=== PATIENT | female | born 1950 | race Caucasian/White ===

== ENCOUNTER 2016-09-11 09:30 | Inpatient (IN) | payer MEDICARE ==
[~2016-09-11] VITALS: Ht 175.3 cm; Wt 100.2 kg
[~2016-09-11 09:30] MED LIST: AC325T PO; ALBU0.8322 IH; ALBU8.5H2 IH; ALPR.25T PO; AMLO10TA2 PO; AMLO10TA82 PO; AMLO5TAB2 PO; ATOR10TA66 PO; AZIT-21 PO; BUDE10.2 IH; BUDE10.22 IH; CEFD300C3 PO; CEFU500T5 PO; CEPH500C PO; ENAL20TA76 PO; ENLP10T; FURO-124 PO; FURO20TA4 PO; FURO40TA4 PO; GABA-488 PO; GLIM4TAB PO; HCT25T PO; HYDR-2997 PO; HYDR-3061 PO; HYDR-3820 PO; HYDR118S10 PO; INSU100I14 SQ; INSU100I29 SQ; INSU100V31 IJ; IPRA3AMP19 IH; METF500T4 PO; METFORMIN; MONT10TA24 PO; MTF500T; MTF500T PO; MULT-1029 PO; NAPR-243 PO; NAPR220C PO; NAPR250T34; NAPR500T3 PO; OMEG-160 PO; OMEP20CA12 PO; OSLT75CRX PO; OXYC1TAB87; PANT40TA2 PO; PANT40TA3 PO; POTA10CA43 PO; PRAM0.5T4 PO; PRAM1TAB2 PO; PRAM1TAB5 PO; PRD10T PO; PRD20T PO; ROFL500T PO; ROPI0.25 PO; RT-ALBUINH IH; SERT50TA; SERT50TA PO; SERT50TA9 PO; TIOT18CA IH; TIOT4MIS2 IH; TRM50T; ZLP10T PO; ZLP5T PO; ferrous sulfate
[2016-09-11] MEDS ORDERED: RT-ALBUTEROL SULF 2.5 MG/3 ML PRE-MIX VIAL INH STA (09:35)
--- OUTSIDE RECORDS SUMMARY | 2016-09-11 09:36 | XMS REPORT | Continuity of Care Document ---
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 Name Role Phone RADHA HAYES DO PCP Insurance Providers Payer Name Policy Number Subscriber Name Relationship [employer] Gold Choice [id number] Denice Barkley 17 Self / Same As Patient Advance Directives Directive Response Recorded Date/Time Advance Directives No 07/30/16 6:20pm Health Care Power of Pipelines Laborer No 07/30/16 6:20pm Organ Donor No 07/30/16 6:20pm Resuscitation Status Full Code 07/30/16 6:20pm Chief Complaint and Reason for Visit Chief Complaint COPD W/ ACUTE EXACERBATION Reason for Visit Hypoxia Problems Active Problems Medical Problem Onset Date Status Bronchitis Unknown Acute COPD (chronic obstructive pulmonary disease) Unknown Acute COPD with acute exacerbation Unknown Acute Hyperglycemia due to type 2 diabetes mellitus Unknown Acute Hypoxia Unknown Acute Hypoxia Unknown Acute Influenza-like symptoms Unknown Acute Pneumonia Unknown Acute Pulmonary contusion Unknown Acute Medications Current Home Medications Medication Dose Units Route Directions Days/Qty Instructions Start Date Atorvastatin Calcium 10 Mg 10 Mg Oral Bedtime 08/05/15 Gabapentin 300 Mg 300 Mg Oral Bedtime 08/05/15 Potassium Chloride 10 Meq 10 Meq Oral Bedtime 08/05/15 Budesonide/Formoterol Fumarate 10.2 Gm 2 Puff Inhalation Twice A Day 08/05/15 Tiotropium [place] 4 Gm 2 Puff Inhalation Daily 11/13/15 Glimepiride 4 Mg 8 Mg Oral Daily TAKES 2 (4 MG) TABLETS 11/13/15 Hydrocodone/Acetaminophen 1 Each 1 Tab Oral Four Times Daily as needed for Pain 11/13/15 Pramipexole Di-Hcl 1 Mg 1 Mg Oral Bedtime 11/13/15 Furosemide 40 Mg 40 Mg Oral Daily 11/13/15 Naproxen 500 Mg 500 Mg Oral Twice A Day as needed for Pain 11/13/15 Amlodipine Besylate 10 Mg 10 Mg Oral Bedtime 11/13/15 Sertraline Hcl 50 Mg 50 Mg Oral Bedtime 11/13/15 Metformin Hcl 500 Mg 1,000 Mg Oral Twice A Day TAKES 2 (500MG) TABLETS 11/13/15 Multivit-Min/Fa/Lycopene/Lut 1 Each 1 Tab Oral Daily 11/13/15 [place]-3/Dha/Epa/Fish Oil 1 Each 1,000 Mg Oral Daily 11/13/15 Insulin Detemir 100 Unit/1 Ml 20 Unit Sub-Q 1100 06/27/16 Insulin Aspart 300 Units/3 Ml Sub-Q Sliding/Scale as needed for Bs Above 200 06/27/16 Prednisone 20 Mg 20 Mg Oral Daily 7 08/05/16 Past Home Medications Medication Directions Ordered Status Hydrochlorothiazide 25 Mg Tablet, 25 Mg Oral Daily 10/13/06 Discontinued Enalapril Maleate 10 Mg Tablet, 10/13/06 Discontinued Tramadol Hcl 50 Mg Tablet, 10/13/06 Discontinued [Metformin] , 10/13/06 Discontinued Naproxen 250 Mg Tablet, 10/15/06 Discontinued Oxycodone/Acetaminophen 1 Tab Tablet, 01/07/07 Discontinued [Ferrous Sulfate] , 01/07/07 Discontinued Sertraline Hcl 50 Mg Tablet, 09/06/09 Discontinued Amlodipine Besylate (Norvasc 5 Mg) 5 Mg Tablet, 5 Mg Oral Daily 09/06/09 Discontinued Naproxen 500 Mg Tablet, 500 Mg Oral Twice A Day 09/06/09 Discontinued Enalapril Maleate 20 Mg Tablet, 10 Mg Oral Twice A Day 09/06/09 Discontinued Acetaminophen/Hydrocodone Bitart 1 Tab Tablet, 1 Tab Oral Bedtime 09/06/09 Discontinued Metformin Hcl (Glucophage) 500 Mg Tablet, 09/06/09 Discontinued Metformin Hcl (Glucophage) 500 Mg Tablet, 09/06/09 Discontinued Metformin Hcl (Glucophage) 500 Mg Tablet, 09/06/09 Discontinued Sertraline Hcl 50 Mg Tablet, 50 Mg Oral Bedtime 09/06/09 Discontinued Metformin Hcl (Glucophage) 500 Mg Tablet, 1000 Mg Oral Twice A Day 09/06/09 Discontinued Zolpidem Tartrate 10 Mg Tab, 10 Mg Oral Bedtime 02/04/11 Discontinued Acetaminophen 325 Mg Tablet, 650 Mg Oral Every 4HRS as needed 02/08/11 Discontinued Albuterol Sulfate/Ipratropium 3 Ml Solution, 3 Ml Inhalation Every 4HRS as needed 02/08/11 Discontinued Tiotropium [place] 1 Inh Aerp, 1 Inh Inhalation Daily 02/08/11 Discontinued Cephalexin Monohydrate (Keflex) 500 Mg Capsule, 1 Each Oral Three Times A Day 02/08/11 Discontinued Prednisone 10 Mg Tab, 10 Mg Oral As Directed 02/08/11 Discontinued Naproxen Sodium 220 Mg Capsule, 500 Mg Oral Twice A Day 07/15/11 Discontinued Albuterol 8.5 Gm Hfa.aer.ad, 8.5 Gm Inhalation Every 6 Hours as needed Discontinued Acetaminophen/Hydrocodone Bitart 1 Each Tablet, 1 Each Oral Three Times A Day 11/04/11 Discontinued Pramipexole Di-Hcl 0.5 Mg Tablet, 0.5 Mg Oral Bedtime 11/04/11 Discontinued Albuterol Sulfate 2.5 Mg/3 Ml Solution, 2.5 Mg Inhalation Every 4HRS as needed for Wheezing 11/09/11 Discontinued Prednisone 10 Mg Tab, 10 Mg Oral Twice A Day 11/09/11 Discontinued Ropinirole Hcl 0.25 Mg Tablet, 0.25 Mg Oral 03/06/12 Discontinued Zolpidem Tartrate 5 Mg Tablet, 5 Mg Oral Bedtime 03/06/12 Discontinued Furosemide (Lasix) 20 Mg Tablet, 40 Mg Oral Daily 03/06/12 Discontinued Amlodipine Besylate (Norvasc 5 Mg) 5 Mg Tablet, 5 Mg Oral Daily 03/06/12 Discontinued Cephalexin Monohydrate (Keflex) 500 Mg Capsule, 500 Mg Oral Three Times A Day 03/11/12 Discontinued Roflumilast 500 Mcg Tablet, 500 Mcg Oral Daily 03/11/12 Discontinued Prednisone 10 Mg Tab, 10 Mg Oral Three Times A Day 03/11/12 Discontinued Budesonide/Formoterol Fumarate 10.2 Gm Hfa.aer.ad, 10.2 Gm Inhalation Twice A Day 05/26/12 Discontinued Budesonide/Formoterol Fumarate 10.2 Gm Hfa.aer.ad, 10.2 Gm Inhalation 05/26 Discontinued Naproxen 500 Mg Tablet, 1 Each Oral Twice A Day 07/13/12 Discontinued Azithromycin (Zpak) 250 Mg Tab, 250 Mg Oral Daily 07/20/12 Discontinued Cefuroxime Axetil (Ceftin) 500 Mg Tablet, 500 Mg Oral Twice A Day 07/20/12 Discontinued Amlodipine Besylate (Norvasc 10 Mg) 10 Mg Tablet, 10 Mg Oral Bedtime Discontinued Omeprazole 20 Mg Capsule.dr, 1 Cap Oral Daily 07/27/12 Discontinued Naproxen 500 Mg Tablet, 500 Mg Oral Twice A Day 07/27/12 Discontinued Prednisone 20 Mg Tab, 20 Mg Oral Daily 08/05/12 Discontinued Alprazolam 0.25 Mg Tablet, 0.25 Mg Oral Three Times A Day as needed 08/05/12 Discontinued Prednisone 10 Mg Tab, 10 Mg Oral Daily 08/31/13 Discontinued Azithromycin (Zpak) 250 Mg Tab, 0 Oral Z-[place] 09/13/14 Discontinued Pantoprazole Sod 40 Mg Tab, 40 Mg Oral Daily 09/26/14 Discontinued Hydrocodone/Acetaminophen 1 Each Tablet, 1 Each Oral Four Times Daily for Pain 08/05/15 Discontinued Furosemide 40 Mg Tablet, 40 Mg Oral Daily 08/05/15 Discontinued Pramipexole Di-Hcl 1 Mg Tablet, 1 Mg Oral Bedtime 08/05/15 Discontinued Montelukast Sodium 10 Mg Tablet, 10 Mg Oral Daily 08/05/15 Discontinued Prednisone 20 Mg Tab, 40 Mg Oral Daily 08/05/15 Discontinued Pantoprazole Sodium 40 Mg Tablet., 40 Mg Oral Daily 11/13/15 Discontinued Albuterol Sulfate 8.5 Gm Hfa.aer.ad, 2 Puff Inhalation Every 4HRS as needed for Shortness Of Breath 11/13/15 Discontinued Cefdinir (Omnicef) 300 Mg Capsule, 300 Mg Oral Twice A Day 11/17/15 Discontinued Insulin Regular, Human 100 Unit/1 Ml Vial, 100 Unit Injection As Needed as needed for Hyperglycemia 11/17/15 Discontinued Social History Social History Problem Response Recorded Date/Time Alcohol Use Denies Use 11/13/2015 3:18pm Recreational Drug Use No 11/13/2015 3:18pm Recent Foreign Travel No 08/20/2013 10:44pm Recent Infectious Disease Exposure No 08/20/2013 10:44pm Hospitalization with Isolation Denies 08/31/2013 5:53pm Sexually Transmitted Disease Y age of 16 07/30/2016 6:21pm HIV/AIDS No 07/30/2016 6:21pm Smoking Status Former Smoker 07/30/2016 6:27pm Do you dip or chew tobacco? No 11/13/2015 3:20pm Type Used Cigarettes 08/05/2016 11:56am Recent Hopitalizations Yes 07/30/2016 6:21pm Sexually Transmitted Disease Y age of 16 07/30/2016 6:21pm Hospitalization with Isolation Denies 08/31/2013 5:53pm Hx Sexually Transmitted Disorders Y age of 16 07/27/2012 4:03pm Query Response Start Date Stop Date Smoking Status Former Smoker 07/25/2012 Hospital Discharge Instructions Patient Instructions Physician Instructions New, Converted or Re-Newed RX: Transmitted to Pharmacy Plan of Care/Instructions/FU: 2 office this at 11 a.m. To use pulmonade treatments 4 times a day. To check sugars. Following diabetic diet Activity as Tolerated: Yes Discharge Diet: ADA Diet Care Plan Patient Instructions:: 2 office this at 11 a.m.To use pulmonade treatments 4 times a day.To check sugars.Following diabetic diet Plan of Care Discharge Date 08/05/16 11:55am Disposition 01 HOME, SELF-CARE Instructions/Education Provided Exacerbation of COPD (DC) Prescriptions See Medication Section Referrals (Unspecified) - Reason(s) for Referral: FOLLOW UP WITH DR RAMOS ([phone]) ON Friday09/03/16 AT 11 AM Care Plan and Goals See Discharge Instructions Section Functional Status Query Response Date Recorded Patient Orientation Person Place Time Situation August 03, 2016 11:49am Patient Orientation Person Place Time Situation Normal For Age August 05, 2016 11:56am Comprehension Ability Understands Concepts July 30, 2016 6:30pm Allergies, Adverse Reactions, Alerts Allergen Type Severity Reaction Status Last Updated Enalapril Allergy Severe ANAPHYLAXIS Active 08/22/13 Immunizations No immunization records. Vital Signs Acute Vital Signs Vital Response Date/Time Temperature (Fahrenheit) 98.7 degrees F (97.6 - 99.5) 08/05/2016 11:53am Temperature (Calculated Celsius) 37.39329 degrees C (36.4 - 37.5) 08/05/2016 10:35am Temperature Source Tympanic 08/05/2016 11:53am Pulse Rate (adult) 85 bpm (60 - 90) 08/05/2016 11:53am Respiratory Rate 22 bpm (12 - 24) 08/05/2016 11:53am O2 Sat by Pulse Oximetry 96 % (88 - 100) 08/05/2016 11:53am Blood Pressure 156/76 mm Hg 08/05/2016 11:53am Blood Pressure Mean 102 mm Hg 08/05/2016 8:24am Pain Numeric Pain Scale 2 08/05/2016 11:53am Pain Intensity 6 08/04/2016 8:14pm Height (Feet) 5 feet 07/30/2016 6:30pm Height (Inches) 9.00 inches 07/30/2016 6:30pm Height (Calculated Centimeters) 175.833373 cm 07/30/2016 6:30pm Weight (Pounds) 218 pounds 07/30/2016 6:30pm Weight (Ounces) 5.0 oz 07/30/2016 6:30pm Weight (Calculated Grams) 81892.89 gm 07/30/2016 6:30pm Weight (Calculated Kilograms) 99.600615 kilograms 07/30/2016 6:30pm Calculated BMI 32.2 07/30/2016 6:30pm Capillary Refill Capillary Refill Less Than 3 Seconds 08/05/2016 8:22am Results Laboratory Results Test Name Result Units Flags Reference Collection Date/Time Result Date/ Time Comments White Blood Count 15.4 10^3/uL H 4.3-11.0 08/05/2016 4:20am 08/05/2016 5: 11am Red Blood Count 4.09 10^6/uL L 4.35-5.85 08/05/2016 4:20am 08/05/2016 5: 11am Hemoglobin 11.4 G/DL L 11.5-16.0 08/05/2016 4:20am 08/05/2016 5:11am Hematocrit 36 % 35-52 08/05/2016 4:20am 08/05/2016 5:11am Mean Corpuscular Volume 88 FL 80-99 08/05/2016 4:20am 08/05/2016 5: 11am Mean Corpuscular Hemoglobin 28 PG 25-34 08/05/2016 4:2008/05/2016 5: 11am Mean Corpuscular Hemoglobin Concent 32 G/DL 32-36 08/05/2016 4:2007/2016 5:11am Red Cell Distribution Width 14.9 % H 10.0-14.5 08/05/2016 4:202015 5:11am Platelet Count 336 10^3/uL 130-400 08/05/2016 4:2008/05/2016 5:11am Mean Platelet Volume 11.6 FL H 7.4-10.4 08/05/2016 4:2008/05/2016 5: 11am Neutrophils (%) (Auto) 80 % H 42-75 08/04/2016 4:08/04/2016 4:58am Lymphocytes (%) (Auto) 12 % 12-44 08/04/2016 4:08/04/2016 4:58am Monocytes (%) (Auto) 7 % 0-12 08/04/2016 4:08/04/2016 4:58am Eosinophils (%) (Auto) 0 % 0-10 08/04/2016 4:08/04/2016 4:58am Basophils (%) (Auto) 0 % 0-10 08/04/2016 4:08/04/2016 4:58am Neutrophils # (Auto) 10.0 X 10^3 H 1.8-7.8 08/04/2016 4:08/04/2016 4 :58am Lymphocytes # (Auto) 1.5 X 10^3 1.0-4.0 08/04/2016 4:08/04/2016 4: 58am Monocytes # (Auto) 0.9 X 10^3 0.0-1.0 08/04/2016 4:0208/04/2016 4: 58am Eosinophils # (Auto) 0.0 10^3/uL 0.0-0.3 08/04/2016 4:08/04/2016 4 :58am Basophils # (Auto) 0.0 10^3/uL 0.0-0.1 08/04/2016 4:0208/04/2016 4: 58am Neutrophils % (Manual) 70 % 08/04/2016 4:08/04/2016 5:00am Band Neutrophils 5 % 08/04/2016 4:02am 08/04/2016 5:00am Lymphocytes % (Manual) 14 % 08/04/2016 4:02am 08/04/2016 5:00am Monocytes % (Manual) 7 % 08/04/2016 4:02am 08/04/2016 5:00am Eosinophils % (Manual) 0 % 08/04/2016 4:02am 08/04/2016 5:00am Basophils % (Manual) 0 % 08/04/2016 4:02am 08/04/2016 5:00am Reactive Lymphocytes 4 % 08/04/2016 4:02am 08/04/2016 5:00am Nucleated Red Blood Cells 1 08/04/2016 4:02am 08/04/2016 5:00am Blood Morphology Comment NORMAL 08/01/2016 5:54am 08/01/2016 6: 53am Polychromasia SLIGHT 08/04/2016 4:02am 08/04/2016 5:00am Hypochromasia SLIGHT 08/04/2016 4:02am 08/04/2016 5:00am Anisocytosis SLIGHT 08/04/2016 4:02am 08/04/2016 5:00am Macrocytosis SLIGHT 08/04/2016 4:02am 08/04/2016 5:00am Sodium Level 137 MMOL/L 135-145 08/05/2016 4:20am 08/05/2016 5:36am Potassium Level 4.8 MMOL/L 3.6-5.0 08/05/2016 4:20am 08/05/2016 5:36am Chloride Level 97 MMOL/L L 98-107 08/05/2016 4:20am 08/05/2016 5:36am Carbon Dioxide Level 28 MMOL/L 21-32 08/05/2016 4:20am 08/05/2016 5: 36am Anion Gap 12 MMOL/L 5-14 08/05/2016 4:20am 08/05/2016 5:36am Blood Urea Nitrogen 31 MG/DL H 7-18 08/05/2016 4:20am 08/05/2016 5:36am Creatinine 0.85 MG/DL 0.60-1.30 08/05/2016 4:20am 08/05/2016 5:36am BUN/Creatinine Ratio 36 08/05/2016 4:20am 08/05/2016 5:36am Estimat Glomerular Filtration Rate > 60 08/05/2016 4:20am 2015 5:36am GFR INTERPRETIVE DATA UNITS FOR ESTIMATED GFR (eGFR): mL/min/1.73 M2 REFERENCE RANGE FOR ESTIMATED GFR (eGFR) eGFR NORMAL eGFR >60 MODERATELY DECREASED eGFR 30-59 SEVERLY DECREASED eGFR 15-29 KIDNEY FAILURE <15 (OR DIALYSIS) Glucose Level 332 MG/DL H 70-105 08/05/2016 4:20am 08/05/2016 5:36am Glucometer 290 MG/DL H 70-110 08/05/2016 9:37am 08/05/2016 11:08am Calcium Level 9.5 MG/DL 8.5-10.1 08/05/2016 4:20am 08/05/2016 5:36am Magnesium Level 1.9 MG/DL 1.8-2.4 07/30/2016 4:50pm 07/30/2016 5:57pm Total Bilirubin 0.2 MG/DL 0.1-1.0 08/05/2016 4:20am 08/05/2016 5:36am Alkaline Phosphatase 76 U/L 40-136 08/05/2016 4:20am 08/05/2016 5:36am Aspartate Amino Transf (AST/SGOT) 11 U/L 5-34 08/05/2016 4:20am 2015 5:36am Alanine Aminotransferase (ALT/SGPT) 25 U/L 0-55 08/05/2016 4:20am 08/05 5:36am Total Protein 6.1 G/DL L 6.4-8.2 08/05/2016 4:20am 08/05/2016 5:36am Albumin 3.8 G/DL 3.2-4.5 08/05/2016 4:20am 08/05/2016 5:36am Procedures No known history of procedures. Encounters Encounter Location Arrival/Admit Date Discharge/Depart Date Attending Provider Admitted Inpatient [facility] 07/30/16 5:54pm RADHA HAYES DO Recent Diagnosis Hypoxia
[2016-09-11] MEDS ORDERED: methylPREDNISolone 125 MG (Solu-MEDROL) VIAL IV STA (09:39)
[2016-09-11] MEDS ORDERED: RT-ALBUTEROL/IPRATROPIUM 3 ML (DUONEB) VIAL INH ONE (09:45)
[2016-09-11 09:54] LABS: BASOPHILS # (AUTO) 0.1 10^3/uL (0.0-0.1); BASOPHILS % (AUTO) 1 % (0-10); EOSINOPHILS % (AUTO) 0 % (0-10); LYMPHOCYTES # (AUTO) 0.9 X 10^3 (1.0-4.0); LYMPHOCYTES % (AUTO) 9 % (12-44); MEAN CORPUSCULAR HEMOGLOBIN 27 PG (25-34); MEAN CORPUSCULAR HGB CONC 31 G/DL (32-36); MEAN CORPUSCULAR VOLUME 89 FL (80-99); MEAN PLATELET VOLUME 10.8 FL (7.4-10.4); MONOCYTES # (AUTO) 0.7 X 10^3 (0.0-1.0); MONOCYTES % (AUTO) 6 % (0-12); NEUTROPHILS # (AUTO) 8.8 X 10^3 (1.8-7.8); NEUTROPHILS % (AUTO) 84 % (42-75); PLATELET COUNT 289 10^3/uL (130-400); RED BLOOD COUNT 4.15 10^6/uL (4.35-5.85); RED CELL DISTRIBUTION WIDTH 14.2 % (10.0-14.5); WHITE BLOOD COUNT 10.4 10^3/uL (4.3-11.0)
--- NOTE | 2016-09-11 10:01 | ED General ---
General Chief Complaint: Respiratory Problems Stated Complaint: SOA Nursing Triage Note: PT TO ED 8 PER W/C W/ O2 FROM DR HAYES'S OFFICE FOR C/O SOB INCREASED OVER PAST 3 DAYS, WORSE TODAY Nursing Sepsis Screen: No Definite Risk Source of Information: Patient Exam Limitations: No Limitations History of Present Illness Time Seen by Provider: 09:30 Initial Comments Here with report of 2-3 days shortness of breath that is much worse today. Seen at her primary care physician's office this morning and found to have an O2 sat of 82 percent. Sent here for further evaluation and care. Patient denies fever or chills. Does report cough. Reports that her nebulizer treatments are not working. Does have history of COPD. Last treated about a month ago for the same. Timing/Duration: 2-3 Days Severity: Moderate, Severe Modifying Factors: improves with Rest Associated Systoms: Chest Pain CoughNo Fever/Chills, Nausea/Vomiting Shortness of Air Weakness Allergies and Home Medications Allergies Coded Allergies: enalapril (Verified Allergy, Severe, ANAPHYLAXIS, 08/22/13) Home Medications Amlodipine Besylate 10 Mg Tablet 10 MG PO HS (Reported) Atorvastatin Calcium 10 Mg Tablet 10 MG PO HS (Reported) Budesonide/Formoterol Fumarate 10.2 Gm Hfa.aer.ad 2 PUFF IH BID (Reported) Furosemide 40 Mg Tablet 40 MG PO DAILY (Reported) Gabapentin 300 Mg Capsule 300 MG PO HS (Reported) Glimepiride 4 Mg Tablet 8 MG PO DAILY (Reported) TAKES 2 (4 MG) TABLETS Hydrocodone/Acetaminophen 1 Each Tablet 1 TAB PO QID PRN PRN PAIN (Reported) Insulin Aspart 300 Units/3 Ml Solution SQ SLIDING/SCALE PRN PRN BS ABOVE 200 ( Reported) Insulin Detemir 100 Unit/1 Ml Insuln.pen 20 UNIT SQ 1100 (Reported) Metformin HCl 500 Mg Tablet 1,000 MG PO BID (Reported) TAKES 2 (500MG) TABLETS Multivit-Min/FA/Lycopene/Lut 1 Each Tablet 1 TAB PO DAILY (Reported) Naproxen 500 Mg Tablet 500 MG PO BID PRN PRN PAIN (Reported) [place]-3/Dha/Epa/Fish Oil 1 Each Capsule 1,000 MG PO DAILY (Reported) Potassium Chloride 10 Meq Capsule.er 10 MEQ PO HS (Reported) Pramipexole Di-HCl 1 Mg Tablet 1 MG PO HS (Reported) Prednisone 20 Mg Tab #7 20 MG PO DAILY Prescribed by: RADHA HAYES on 08/05/16 0738 Sertraline HCl 50 Mg Tablet 50 MG PO HS (Reported) Tiotropium [place] 4 Gm Mist.inhal 2 PUFF IH DAILY (Reported) Constitutional: see HPINo chills, No fever EENTM: no symptoms reported Respiratory: dyspnea on exertion short of breath wheezing Cardiovascular: chest pain edema Gastrointestinal: No abdominal pain, No nausea, No vomiting Genitourinary: No dysuria, No pain : No Musculoskeletal: no symptoms reported Skin: no symptoms reported Psychiatric/Neurological: No Symptoms Reported All Other Systems Reviewed Negative Unless Noted: Yes Past Wykypza-Hhjfgx-Plswaw Hx Patient Social History Alcohol Use: Denies Use Recreational Drug Use: No Smoking Status: Former Smoker Type Used: Cigarettes Former Smoker/When Quit: Jul 25, 2012 Recent Foreign Travel: No Contact w/Someone Who Travel: No Recent Infectious Disease Expo: No Recent Hopitalizations: Yes Physical Abuse Screen: No Sexual Abuse: No Immunizations Up To Date Tetanus Booster (TDap): More than 5yrs PED Vaccines UTD: No Date of Pneumonia Vaccine: May 21, 2013 Date of Influenza Vaccine: Jun 08, 2016 Seasonal Allergies Seasonal Allergies: No Surgeries HX Surgeries: Yes (right hip, carpul tunnel bilat, LEFT KNEE SX, RIGHT ANKLE) Surgeries: Gallbladder, Orthopedic Respiratory Hx Respiratory Disorders: Yes Respiratory Disorders: Asthma, Pneumonia, COPD Cardiovascular Hx Cardiac Disorders: Yes Cardiac Disorders: Hypertension Neurological Hx Neurological Disorders: No 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 System Hx 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 Disorders: No Sexually Transmitted Disease: Yes (age of 16) HIV/AIDS: No Female 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 Disorders: Denies Genitourinary Hx Genitourinary Disorders: No Gastrointestinal Hx Gastrointestinal Disorders: Yes Gastrointestinal Disorders: Gastroesophageal Reflux, Chronic Constipation, Gall Bladder Disease Musculoskeletal Hx Musculoskeletal Disorders: Yes Musculoskeletal Disorders: Degenerate Disk Disease, Arthritis, Chronic Back Pain Endocrine Hx Endocrine Disorders: Yes Endocrine Disorders: Diabetes, Insulin dep HEENT HX ENT Disorders: Yes (WEARS GLASSES) HEENT Disorders: Cataract Loss of Vision: Denies Hearing Impairment: Denies Cancer Hx Cancer: No Psychosocial Hx Psychiatric Problems: No Behavioral Health Disorders: Sleep Difficulties, Depression Integumentary HX Skin/Integumentary Disorder: No Blood Transfusions Hx Blood Disorders: No Reviewed Nursing Assessment Reviewed/Agree w Nursing PMH: Yes Family Medical History Family Medial History: Completed stroke 09 BROTHER Family history: Asthma 03 MOTHER History of - respiratory disease 03 FATHER (PNEUMONIA) 03 MOTHER (ASTHMA, COPD) Physical Exam-Suspected Sepsis Physical Exam Vital Signs Vital Sign - Last 12Hours 09/11/16 09/11/16 09:31 09:54 Temp 95.4 Pulse 121 Resp 24 B/P 153/99 Pulse Ox 82 O2 Delivery Room Air O2 Flow Rate 4 Capillary Refill : Less Than 3 Seconds Blood Pressure Mean: 117 General Appearance: No Apparent Distress WD/WN HEENT: PERRL/EOMI Pharynx Normal Neck: Non Tender Supple Respiratory: Accessory Muscle Use Decreased Breath Sounds Respiratory Distress Wheezing Cardiovascular: No Murmur Tachycardia Gastrointestinal: Non Tender Soft Back: Normal Inspection No CVA Tenderness No Vertebral Tenderness Extremity: Non Tender No Calf Tenderness Neurologic/Psychiatric: Alert Oriented x3 No Motor/Sensory Deficits Skin: normal color warm/dry Progress/Results/Core Measures Suspected Sepsis Recent Fever Within 48 Hours: No Infection Criteria Present: None New/Unexplained Altered Menta: No Sepsis Screen: No Definite Risk Sepsis Diagnosis: SIRS Temperature:95.4 Pulse: 121 Respiratory Rate: 24 Laboratory Tests 09/11/16 09:36: White Blood Count 10.4 Blood Pressure 153 /99 Mean: 117 Laboratory Tests 09/11/16 09:36: Creatinine 0.79, INR Comment 0.9, Platelet Count 289, Total Bilirubin 0.3 Results/Orders Lab Results Laboratory Tests Test 09/11/16 09:36 09/11/16 10:12 09/11/16 11:13 Range/Units Activated Partial Thromboplast Time 30 24-35 SEC Alanine Aminotransferase (ALT/SGPT) 18 0-55 U/L Albumin 3.9 3.2-4.5 G/DL Alkaline Phosphatase 107 40-136 U/L Anion Gap 11 5-14 MMOL/L Aspartate Amino Transf (AST/SGOT) 14 5-34 U/L B-Type Natriuretic Peptide 23.5 <100.0 PG/ML BUN/Creatinine Ratio 19 Basophils # (Auto) 0.1 0.0-0.1 10^3/uL Basophils (%) (Auto) 1 0-10 % Blood Urea Nitrogen 15 7-18 MG/DL Calcium Level 10.5 H 8.5-10.1 MG/DL Carbon Dioxide Level 34 H 21-32 MMOL/L Chloride Level 93 L 98-107 MMOL/L Creatinine 0.79 0.60-1.30 MG/DL Eosinophils # (Auto) 0.0 0.0-0.3 10^3/uL Eosinophils (%) (Auto) 0 0-10 % Estimat Glomerular Filtration Rate > 60 Glucose Level 261 H 70-105 MG/DL Hematocrit 37 35-52 % Hemoglobin 11.3 L 11.5-16.0 G/DL INR Comment 0.9 0.8-1.4 Lactic Acid Level 1.8 0.5-2.0 MMOL/L Lymphocytes # (Auto) 0.9 L 1.0-4.0 X 10^3 Lymphocytes (%) (Auto) 9 L 12-44 % Magnesium Level 1.5 L 1.8-2.4 MG/DL Mean Corpuscular Hemoglobin 27 25-34 PG Mean Corpuscular Hemoglobin Concent 31 L 32-36 G/DL Mean Corpuscular Volume 89 80-99 FL Mean Platelet Volume 10.8 H 7.4-10.4 FL Monocytes # (Auto) 0.7 0.0-1.0 X 10^3 Monocytes (%) (Auto) 6 0-12 % Neutrophils # (Auto) 8.8 H 1.8-7.8 X 10^3 Neutrophils (%) (Auto) 84 H 42-75 % Platelet Count 289 130-400 10^3/uL Potassium Level 4.4 3.6-5.0 MMOL/L Prothrombin Time 12.3 12.2-14.7 SEC Red Blood Count 4.15 L 4.35-5.85 10^6/uL Red Cell Distribution Width 14.2 10.0-14.5 % Sodium Level 138 135-145 MMOL/L Total Bilirubin 0.3 0.1-1.0 MG/DL Total Protein 7.1 6.4-8.2 G/DL Troponin I < 0.30 <0.30 NG/ML White Blood Count 10.4 4.3-11.0 10^3/uL Urine Bacteria NEGATIVE /HPF Urine Bilirubin NEGATIVE NEGATIVE Urine Casts PRESENT /LPF Urine Clarity CLEAR Urine Color YELLOW Urine Crystals NONE /LPF Urine Culture Indicated NO Urine Glucose (UA) NEGATIVE NEGATIVE Urine Hyaline Casts 0-2 H /LPF Urine Ketones NEGATIVE NEGATIVE Urine Leukocyte Esterase 1+ H NEGATIVE Urine Mucus NEGATIVE /LPF Urine Nitrite NEGATIVE NEGATIVE Urine Protein NEGATIVE NEGATIVE Urine RBC 0-2 /HPF Urine RBC (Auto) NEGATIVE NEGATIVE Urine Specific Chromo 1.010 L 1.016-1.022 Urine Squamous Epithelial Cells 0-2 /HPF Urine Urobilinogen NORMAL NORMAL MG/DL Urine WBC 0-2 /HPF Urine pH 7 5-9 [place] Test POSITIVE Arterial Blood Base Excess 7.4 H -2.5-2.5 MMOL/L Arterial Blood HCO3 34 H 23-27 MMOL/L Arterial Blood Oxygen Saturation 94 94-100 % Arterial Blood Partial Pressure CO2 52 H 35-45 MMHG Arterial Blood Partial Pressure O2 59 L 79-93 MMHG Arterial Blood Total CO2 35.3 H 21.0-31.0 MMOL/L Arterial Blood pH 7.42 7.37-7.43 Blood Gas Inspired Oxygen 4 Blood Gas Patient Temperature 95.4 Blood Gas Puncture Site LEFT RADIAL Blood Gas Ventilator Setting NO My Orders Orders-KAIT BUTCHER MD Cbc With Automated Diff (09/11/16 09:35) Comprehensive Metabolic Panel (09/11/16 09:35) Lactic Acid Analyzer (09/11/16 09:35) Blood Culture (09/11/16 09:35) Sputum Culture (09/11/16 09:35) Ua Culture If Indicated (09/11/16 09:35) Protime With Inr (09/11/16 09:35) Partial Thromboplastin Time (09/11/16 09:35) Chest 1 View, Ap/Pa Only (09/11/16 09:35) O2 (09/11/16 09:35) Saline Lock/Iv-Start (09/11/16 09:35) Saline Lock/Iv-Start (09/11/16 09:35) Ekg Tracing (09/11/16 09:35) Vital Signs Adult Sepsis Patie Q1HR (09/11/16 09:35) Albuterol Pre-Mix Nebs (Rt) (Proventil P (09/11/16 09:35) Albuterol/Ipra Inhalation Soln (Duoneb I (09/11/16 09:45) Svn Sm Volume Nebulizer Rt-Rfs (09/11/16 09:35) Svn Sm Volume Nebulizer Rt-Rfs (09/11/16 09:35) Arterial Blood Gas (09/11/16 09:35) Magnesium (09/11/16 09:35) Troponin I (09/11/16 09:35) Methylprednisolone Sod Succ (Solu-Medrol (09/11/16 09:39) BNP (09/11/16 10:09) Fentanyl Injection (Sublimaze Injection (09/11/16 11:08) Ceftriaxone Injection (Rocephin Injectio (09/11/16 11:15) Medications Given in ED Current Medications Medications Dose Ordered Sig/Fabienne Route Start Time Stop Time Status Last Admin Dose Admin Albuterol/ Ipratropium 3 ml ONCE ONCE INH 09/11/16 09:45 09/11/16 09:46 DC 09/11/16 09:50 3 ML Vital Signs/I&O Vital Sign - Last 12Hours 09/11/16 09/11/16 09:31 09:54 Temp 95.4 Pulse 121 Resp 24 B/P 153/99 Pulse Ox 82 93 O2 Delivery Room Air Nasal Cannula O2 Flow Rate 4 Capillary Refill : Less Than 3 Seconds Blood Pressure Mean: 117 Progress Note : Progress Note Seen and evaluated. Albuterol treatments initiated. Patient initiated on hour- long treatment due to severe respiratory distress. IV, labs, and chest x-ray ordered. Monitor patient. Blood cultures and lactic acid ordered. EKG ordered. Monitor patient. Patient has findings of respiratory failure related to COPD exacerbation with hypoxia. Currently doing better after continuous 1 hour. Solu-Medrol 125 mg IV given. 1109: Discussed case with Dr. Hayes. He accepts patient for admission, inpatient status. Consult Dr. Soriano at 1111. He accepts patient in consult. Patient agrees to plan. She is complaining of body aches and chest pain. Pain is at the rib margins and occurred when she was in significant respiratory distress. Fentanyl 50 g IV for chest wall pain. This did help. Discussed admission with the patient who agrees with plan. Admit inpatient status. ECG Initial ECG Impression Date: Sep 11, 2016 Initial ECG Impression Time: 10:53 Initial ECG Rate: 117 Initial ECG Rhythm: S.Tach Comment Sinus tachycardia with left atrial abnormality. Normal axis. No evidence of ST elevation [place]. Similar to previous but faster rate from 11/13/15. Interpreted by me. Diagnostic Imaging Diagonstic Imaging: Xray Plain Films/CT/US/NM/MRI: chest [facility] [place], [place] NAME: LOKESH BARKLEY MED REC#: [id number] PT STATUS: REG ER : 1950 PHYSICIAN: KAIT BUTCHER MD ADMIT DATE: 09/11/16/ER Draft Date of Exam:09/11/16 CHEST 1 VIEW, AP/PA ONLY EXAMINATION: Portable upright radiograph of the chest. INDICATION: Shortness of breath. FINDINGS: The heart size is mildly enlarged. There is minimal vascular congestion. No alveolar edema or significant effusion. No pneumothorax. The mediastinum and brian appear unremarkable. IMPRESSION: Cardiomegaly with minimal vascular congestion. Dictated on workstation # [id number] Dict: 09/11/16 1046 Trans: 09/11/16 1055 [id number] Interpreted by: LISS ENCARNACION MD Electronically signed by: Departure Communication Time/Spoke to Admitting Phy: 11:09 Time/Spoke to Consulting Physi: 11:11 Impression Impression: Primary Impression: COPD with acute exacerbation Additional Impression: Respiratory failure with hypoxia Qualified Code: J96.01 - Acute respiratory failure with hypoxia Disposition: ADMITTED INPATIENT Condition: Stable Decision to Admit Reason: Admit from ER (General) Decision to Admit/Date: Sep 11, 2016 Time/Decision to Admit Time: 11:09 Departure-Patient Inst. Referrals: RADHA HAYES DO (PCP/Family) Primary Care Physician KAIT BUTCHER MD Sep 11, 2016 10:01
[2016-09-11 10:02] LABS: INR 0.9 (0.8-1.4); PROTHROMBIN TIME PATIENT 12.3 SEC (12.2-14.7)
[2016-09-11 10:09] LABS: ALANINE AMINOTRANSFERASE 18 U/L (0-55); ALBUMIN 3.9 G/DL (3.2-4.5); ANION GAP 11 MMOL/L (5-14); ASPARTATE AMINO TRANSFERASE 14 U/L (5-34); BILIRUBIN,TOTAL 0.3 MG/DL (0.1-1.0); BLOOD UREA NITROGEN 15 MG/DL (7-18); BUN/CREATININE RATIO 19; CALCIUM 10.5 MG/DL (8.5-10.1); CARBON DIOXIDE 34 MMOL/L (21-32); CHLORIDE 93 MMOL/L (98-107); CREATININE SERUM 0.79 MG/DL (0.60-1.30); GFR ESTIMATED > 60; GLUCOSE 261 MG/DL (70-105); MAGNESIUM 1.5 MG/DL (1.8-2.4); POTASSIUM 4.4 MMOL/L (3.6-5.0); SODIUM 138 MMOL/L (135-145); TOTAL PROTEIN 7.1 G/DL (6.4-8.2)
[2016-09-11 10:15] LABS: TROPONIN I < 0.30 NG/ML (<0.30)
[2016-09-11 10:24] LABS: BILIRUBIN,URINE NEGATIVE (NEGATIVE); KETONES,URINE NEGATIVE (NEGATIVE); LEUKOCYTE ESTERASE ,URINE 1+ (NEGATIVE); NITRITE,URINE NEGATIVE (NEGATIVE); PH,URINE 7 (5-9); PROTEIN,URINE NEGATIVE (NEGATIVE); UROBILINOGEN,URINE NORMAL (NORMAL)
[2016-09-11 10:36] LABS: HYALINE CASTS, URINE 0-2 /LPF; SQUAMOUS EPITHELIAL CELL,UR 0-2 /HPF; WBC,URINE 0-2 /HPF
--- NOTE | 2016-09-11 10:56 | Diagnostic Imaging Report ---
EXAMINATION: Portable upright radiograph of the chest. INDICATION: Shortness of breath. FINDINGS: The heart size is mildly enlarged. There is minimal vascular congestion. No alveolar edema or significant effusion. No pneumothorax. The mediastinum and brian appear unremarkable. IMPRESSION: Cardiomegaly with minimal vascular congestion. Dictated by: Dictated on workstation # [id number]
[2016-09-11] MEDS ORDERED: fentaNYL INJECTION 100 MCG/2 ML AMP IVP STA (11:08)
[2016-09-11] MEDS ORDERED: cefTRIAXone INJECTION 1,000 MG in NORMAL SALINE (BAXTER MINI) 50 ML IV ONE (11:15)
[2016-09-11 11:23] LABS: ABG BASE EXCESS 7.4 MMOL/L (-2.5-2.5); ABG HCO3 34 MMOL/L (23-27); ABG OXYGEN SATURATION 94 % (94-100); ABG PCO2 52 MMHG (35-45); ABG PH 7.42 (7.37-7.43); ABG PO2 59 MMHG (79-93); ABG TCO2 35.3 MMOL/L (21.0-31.0)
[2016-09-11 11:27] LABS: ALLENS TEST POSITIVE; PATIENT TEMP 95.4
[2016-09-11] MEDS ORDERED: cefTRIAXone 1 GM (ROCEPHIN) VIAL ONE (11:44)
[2016-09-11] MEDS ORDERED: NORMAL SALINE (BAXTER MINI) 50 ML IV ONE (11:45)
[2016-09-11 12:00] VITALS: BP 165/79
[2016-09-11] MEDS: NS IV 1000 ML 1,000 ML IV SCH (12:43)
[2016-09-11] MEDS: fentaNYL INJECTION 100 MCG/2 ML AMP IVP PRN ×2 (13:51→17:09)
[2016-09-11 14:11] VITALS: BP 165/79
[2016-09-11] MEDS ORDERED: RT-ALBUTEROL/IPRATROPIUM 3 ML (DUONEB) VIAL INH PRN (14:30)
[2016-09-11 15:35] VITALS: BP 155/91
[2016-09-11] MEDS ORDERED: inSUlin (REGULAR) HUMAN 1 UNIT/0.01 ML (CHARGE PER UNIT) SC ONE (16:30)
[2016-09-11] MEDS: inSUlin (REGULAR) HUMAN 1 UNIT/0.01 ML (CHARGE PER UNIT) SC SCH ×2 (17:10→20:37)
[2016-09-11] MEDS ORDERED: methylPREDNISolone 40 MG/ML (Solu-MEDROL) VIAL IV SCH (18:00)
[2016-09-11] MEDS: RT-ALBUTEROL/IPRATROPIUM 3 ML (DUONEB) VIAL INH SCH ×2 (18:50→22:43)
[2016-09-11] MEDS: RT-ADVAIR HFA 115/21 MCG PER PUFF IH SCH (18:51)
[2016-09-11 20:00] VITALS: BP 155/78
[2016-09-11 20:30] VITALS: BP 145/81
[2016-09-11] MEDS: ATORVASTATIN 10 MG (LIPITOR) TABLET PO SCH (20:37)
[2016-09-11] MEDS: SERTRALINE 50 MG (ZOLOFT) TABLET PO SCH (20:37)
[2016-09-11] MEDS: HYDROcodone/APAP 10 MG/325 MG (LORTAB) TAB PO PRN (20:38)
[2016-09-11] MEDS: amLODIPine 10 MG (NORVASC) TAB PO SCH (20:38)
[2016-09-11] MEDS: traZODone 50 MG (DESYREL) TAB PO PRN (20:38)
[2016-09-11] MEDS: GABAPENTIN 300 MG (NEURONTIN) CAP PO SCH (20:39)
[2016-09-12 00:56] VITALS: BP 147/82
[2016-09-12] MEDS: RT-ALBUTEROL/IPRATROPIUM 3 ML (DUONEB) VIAL INH SCH ×6 (02:54→22:07)
[2016-09-12 04:00] VITALS: BP 172/81
[2016-09-12] MEDS: methylPREDNISolone 40 MG/ML (Solu-MEDROL) VIAL IV SCH ×3 (05:36→21:00)
[2016-09-12] MEDS: inSUlin (REGULAR) HUMAN 1 UNIT/0.01 ML (CHARGE PER UNIT) SC SCH ×4 (05:37→21:00)
[2016-09-12] MEDS: HYDROcodone/APAP 10 MG/325 MG (LORTAB) TAB PO PRN ×5 (05:37→23:10)
[2016-09-12] MEDS: RT-ADVAIR HFA 115/21 MCG PER PUFF IH SCH ×2 (06:48→19:11)
[2016-09-12 07:23] LABS: BASOPHILS % (AUTO) 0 % (0-10); EOSINOPHILS % (AUTO) 0 % (0-10); LYMPHOCYTES # (AUTO) 0.6 X 10^3 (1.0-4.0); LYMPHOCYTES % (AUTO) 6 % (12-44); MEAN CORPUSCULAR HEMOGLOBIN 27 PG (25-34); MEAN CORPUSCULAR HGB CONC 32 G/DL (32-36); MEAN CORPUSCULAR VOLUME 87 FL (80-99); MEAN PLATELET VOLUME 11.3 FL (7.4-10.4); MONOCYTES # (AUTO) 0.4 X 10^3 (0.0-1.0); MONOCYTES % (AUTO) 3 % (0-12); NEUTROPHILS # (AUTO) 9.8 X 10^3 (1.8-7.8); NEUTROPHILS % (AUTO) 91 % (42-75); PLATELET COUNT 299 10^3/uL (130-400); RED BLOOD COUNT 3.65 10^6/uL (4.35-5.85); RED CELL DISTRIBUTION WIDTH 14.3 % (10.0-14.5); WHITE BLOOD COUNT 10.8 10^3/uL (4.3-11.0)
--- NOTE | 2016-09-12 07:26 | Pulmonary Consultation ---
History of Present Illness History of Present Illness Date of Consultation 09/12/16 07:25 Date of Admission History of Present Illness 65yo presented secondary to worsening SOB over the last 2-3 days she was found to have Sp02 of 82% AT pcp office. No f/ns/c Home nebulizers have not been working. She had a similar episode 1 month ago. Allergies and Home Medications Allergies Coded Allergies: enalapril (Verified Allergy, Severe, ANAPHYLAXIS, 08/22/13) Home Medications Albuterol Sulfate 2.5 Mg/3 Ml Vial.neb 2.5 MG NEB Q4H PRN PRN SHORTNESS OF BREATH (Reported) Amlodipine Besylate 10 Mg Tablet 10 MG PO HS (Reported) Atorvastatin Calcium 10 Mg Tablet 10 MG PO HS (Reported) Budesonide/Formoterol Fumarate 10.2 Gm Hfa.aer.ad 2 PUFF IH BID (Reported) Furosemide 40 Mg Tablet 40 MG PO DAILY (Reported) Gabapentin 300 Mg Capsule 300 MG PO HS (Reported) Glimepiride 4 Mg Tablet 8 MG PO DAILY (Reported) TAKES 2 (4 MG) TABLETS Hydrocodone/Acetaminophen 1 Each Tablet 1 TAB PO QID PRN PRN PAIN (Reported) Insulin Aspart 300 Units/3 Ml Solution SQ AC PRN PRN SLIDING SCALE BS ABOVE 200 (Reported) Insulin Detemir 100 Unit/1 Ml Insuln.pen 25 UNIT SQ 1030 (Reported) Metformin HCl 500 Mg Tablet 1,000 MG PO BID (Reported) TAKES 2 (500MG) TABLETS Multivit-Min/FA/Lycopene/Lut 1 Each Tablet 1 TAB PO DAILY (Reported) Naproxen 500 Mg Tablet 500 MG PO BID (Reported) [place]-3/Dha/Epa/Fish Oil 1 Each Capsule 1,000 MG PO DAILY (Reported) Potassium Chloride 10 Meq Capsule.er 10 MEQ PO HS (Reported) Pramipexole Di-HCl 1 Mg Tablet 1 MG PO HS (Reported) Sertraline HCl 50 Mg Tablet 50 MG PO HS (Reported) Tiotropium [place] 4 Gm Mist.inhal 2 PUFF IH DAILY (Reported) Past Mijaarj-Xoykcw-Jcubmx Hx Patient Social History Alcohol Use: Denies Use Recreational Drug Use: No Smoking Status: Former Smoker Type Used: Cigarettes Former Smoker/When Quit: Jul 25, 2012 Recent Foreign Travel: No Contact w/Someone Who Travel: No Recent Infectious Disease Expo: No Recent Hopitalizations: Yes Physical Abuse Screen: No Sexual Abuse: No Immunizations Up To Date Tetanus Booster (TDap): More than 5yrs PED Vaccines UTD: No Date of Pneumonia Vaccine: May 21, 2013 Date of Influenza Vaccine: Jun 08, 2016 Seasonal Allergies Seasonal Allergies: No Surgeries HX Surgeries: Yes (right hip, carpul tunnel bilat, LEFT KNEE SX, RIGHT ANKLE) Surgeries: Gallbladder, Orthopedic Respiratory Hx Respiratory Disorders: Yes Respiratory Disorders: Asthma, Pneumonia, COPD Cardiovascular Hx Cardiac Disorders: Yes Cardiac Disorders: Hypertension Neurological Hx Neurological Disorders: No 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 System Hx 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 Disorders: No Sexually Transmitted Disease: Yes (age of 16) HIV/AIDS: No Female 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 Disorders: Denies Genitourinary Hx Genitourinary Disorders: No Gastrointestinal Hx Gastrointestinal Disorders: Yes Gastrointestinal Disorders: Gastroesophageal Reflux, Chronic Constipation, Gall Bladder Disease Musculoskeletal Hx Musculoskeletal Disorders: Yes Musculoskeletal Disorders: Degenerate Disk Disease, Arthritis, Chronic Back Pain Endocrine Hx Endocrine Disorders: Yes Endocrine Disorders: Diabetes, Insulin dep HEENT HX ENT Disorders: Yes (WEARS GLASSES) HEENT Disorders: Cataract Loss of Vision: Denies Hearing Impairment: Denies Cancer Hx Cancer: No Psychosocial Hx Psychiatric Problems: No Behavioral Health Disorders: Sleep Difficulties, Depression Integumentary HX Skin/Integumentary Disorder: No Blood Transfusions Hx Blood Disorders: No Reviewed Nursing Assessment Reviewed/Agree w Nursing PMH: Yes Family Medical History Family Medial History: Completed stroke 09 BROTHER Family history: Asthma 03 MOTHER History of - respiratory disease 03 FATHER (PNEUMONIA) 03 MOTHER (ASTHMA, COPD) Review of Systems Constitutional: : Malaise: WeaknessNo: Fever Eyes: No: Conjunctivae inflammation, Eyelid inflammation, Other, Pain, Redness , Vision change ENT: : Nose congestionNo: Ear discharge, Ear pain, Mouth pain, Mouth swelling, Nose discharge, Nose pain, Other, Throat pain, Throat swelling Respiratory: : Cough: Dry: SOB with excertion: Shortness of breath Cardiovascular: : Lt Headedness: Paroxysmal Noc. DyspneaNo: Chest Pain, Edema, Orthopnea, Other, Palpitations Gastrointestinal: No: Abdominal Pain, Constipation, Diarrhea, Hematochezia, Melena, Nausea, Other, Vomiting Genitourinary: No Dysuria, No Frequency, No Incontinence, No Hematuria, No Retention, No Other Musculoskeletal: No: arm pain, back pain, foot pain, hand pain, leg pain, neck pain, other, shoulder pain Neurological: : Weakness Exam Exam Vital Signs Date Time Temp Pulse Resp B/P Pulse Ox O2 Delivery O2 Flow Rate FiO2 09/12/16 06:48 94 Nasal Cannula 4.00 09/12/16 04:00 96.2 56 18 172/81 91 Nasal Cannula 4.00 09/12/16 02:55 94 Nasal Cannula 4.00 09/12/16 01:00 73 09/12/16 00:56 98.2 82 17 147/82 95 Nasal Cannula 4.00 09/11/16 22:46 94 Nasal Cannula 4.00 09/11/16 21:00 Nasal Cannula 4.00 09/11/16 20:00 97.9 96 19 155/78 93 Nasal Cannula 4.00 09/11/16 19:00 110 09/11/16 18:52 97 Nasal Cannula 4.00 09/11/16 18:10 96.4 09/11/16 15:35 96.4 107 24 155/91 93 Nasal Cannula 4.00 09/11/16 15:12 93 Nasal Cannula 4.00 09/11/16 14:16 95 Nasal Cannula 4.00 09/11/16 14:16 95 09/11/16 12:05 97 Nasal Cannula 4.00 09/11/16 12:00 97.5 108 32 165/79 95 Nasal Cannula 4.00 09/11/16 11:57 118 20 99 Nasal Cannula 4 09/11/16 09:54 93 Nasal Cannula 4 09/11/16 09:31 95.4 121 24 153/99 82 Room Air I & O 09/12/16 07:00 Intake Total 2016 ml Output Total 1416 ml Balance 600 ml General Appearance: No Apparent Distress WD/WN HEENT: PERRL/EOMI Pharynx Normal Neck: Non Tender Supple Respiratory: Accessory Muscle Use Decreased Breath Sounds Respiratory Distress Wheezing Cardiovascular: No Murmur Tachycardia Capillary Refill: Less Than 3 Seconds Extremity: Non Tender No Calf Tenderness Neurologic/Psychiatric: Alert Oriented x3 No Motor/Sensory Deficits Skin: Normal Color Warm/Dry Lymphatic: No Adenopathy Results Lab Laboratory Tests 09/11/16 09:36 09/12/16 06:52 Assessment/Plan Assessment/Plan COPDAE -continue solumedrol, and SVNS,. advair obesity Clinical Quality Measures DVT/VTE Risk/Contraindication: Risk Factor Score Per Nursin RFS Level Per Nursing on Admit: 4+=Very High MK RAMOS DO Sep 12, 2016 07:26
[2016-09-12 07:40] LABS: ALANINE AMINOTRANSFERASE 17 U/L (0-55); ALBUMIN 3.7 G/DL (3.2-4.5); ANION GAP 10 MMOL/L (5-14); ASPARTATE AMINO TRANSFERASE 9 U/L (5-34); BILIRUBIN,TOTAL 0.2 MG/DL (0.1-1.0); BLOOD UREA NITROGEN 23 MG/DL (7-18); BUN/CREATININE RATIO 28; CALCIUM 9.7 MG/DL (8.5-10.1); CARBON DIOXIDE 30 MMOL/L (21-32); CHLORIDE 98 MMOL/L (98-107); CREATININE SERUM 0.81 MG/DL (0.60-1.30); GFR ESTIMATED > 60; GLUCOSE 315 MG/DL (70-105); POTASSIUM 4.7 MMOL/L (3.6-5.0); SODIUM 138 MMOL/L (135-145); TOTAL PROTEIN 6.5 G/DL (6.4-8.2)
[2016-09-12 07:56] LABS: ANISOCYTOSIS SLIGHT; BAND NEUTROPHILS 7 %; BASOPHILS % (MANUAL) 0 %; EOSINOPHILS % (MANUAL) 0 %; LYMPHOCYTES % (MANUAL) 6 %; NEUTROPHILS % (MANUAL) 86 %
--- NOTE | 2016-09-12 07:57 | History & Physicial ---
History of Present Illness History of Present Illness Reason for visit/HPI patient came to the office short of breath and trouble breathing. Pulse ox 82. Patient sent out to the emergency room. Patient had breathing treatments for now without much success. Patient has COPD with acute exacerbation. Patient has history of smoking. Patient and known diabetic. Ration admitted for COPD with acute exacerbation. Patient states last few days has trouble walking due to the shortness of breath. Surgeries right ankle, left knee, gallbladder, bilateral carpal tunnel Date of Admission Sep 11, 2016 at 11:31 I consulted on this patient on 09/12/16 07:51 Attending Physician Sina aHyes DO Admitting Physician Sina Hayes DO Consult Allergies and Home Medications Allergies Coded Allergies: enalapril (Verified Allergy, Severe, ANAPHYLAXIS, 08/22/13) Home Medications Amlodipine Besylate 10 Mg Tablet 10 MG PO HS (Reported) Atorvastatin Calcium 10 Mg Tablet 10 MG PO HS (Reported) Budesonide/Formoterol Fumarate 10.2 Gm Hfa.aer.ad 2 PUFF IH BID (Reported) Furosemide 40 Mg Tablet 40 MG PO DAILY (Reported) Gabapentin 300 Mg Capsule 300 MG PO HS (Reported) Glimepiride 4 Mg Tablet 8 MG PO DAILY (Reported) TAKES 2 (4 MG) TABLETS Hydrocodone/Acetaminophen 1 Each Tablet 1 TAB PO QID PRN PRN PAIN (Reported) Insulin Aspart 300 Units/3 Ml Solution SQ SLIDING/SCALE PRN PRN BS ABOVE 200 ( Reported) Insulin Detemir 100 Unit/1 Ml Insuln.pen 25 UNIT SQ DAILY@1000 (Reported) Metformin HCl 500 Mg Tablet 1,000 MG PO BID (Reported) TAKES 2 (500MG) TABLETS Multivit-Min/FA/Lycopene/Lut 1 Each Tablet 1 TAB PO DAILY (Reported) Naproxen 500 Mg Tablet 500 MG PO BID (Reported) [place]-3/Dha/Epa/Fish Oil 1 Each Capsule 1,000 MG PO DAILY (Reported) Potassium Chloride 10 Meq Capsule.er 10 MEQ PO HS (Reported) Pramipexole Di-HCl 1 Mg Tablet 1 MG PO HS (Reported) Sertraline HCl 50 Mg Tablet 50 MG PO HS (Reported) Tiotropium [place] 4 Gm Mist.inhal 2 PUFF IH DAILY (Reported) Past Isuserx-Xrmper-Cipqfd Hx Patient Social History Marrital Status: Employed/Student: unemployed Alcohol Use: Denies Use Recreational Drug Use: No Smoking Status: Former Smoker Former smoker/When Quit: Jul 25, 2012 Type Used: Cigarettes Physical Abuse Screen: No Sexual Abuse: No Recent Foreign Travel: No Contact w/other who traveled: No Recent Hopitalizations: Yes Recent Infectious Disease Expo: No Immunizations Up To Date Tetanus Booster (TDap): More than 5yrs Date of Pneumonia Vaccine: May 21, 2013 Date of Influenza Vaccine: Jun 08, 2016 Seasonal Allergies Seasonal Allergies: No Surgeries HX Surgeries: Yes (right hip, carpul tunnel bilat, LEFT KNEE SX, RIGHT ANKLE) Surgeries: Gallbladder, Orthopedic Respiratory Hx Respiratory Disorders: Yes Respiratory Disorders: COPD Cardiovascular Hx Cardiovascular Disorders: Yes Cardiac Disorders: Hypertension Neurological Hx Neurological Disorders: No 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 System Hx 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 Disorders: No Sexually Transmitted Disease: Yes (age of 16) HIV/AIDS: No Female 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 Disorders: Denies Genitourinary Hx Genitourinary Disorders: No Gastrointestinal Hx Gastrointestinal Disorders: Yes Gastrointestinal Disorders: Gastroesophageal Reflux, Chronic Constipation, Gall Bladder Disease Musculoskeletal Hx Musculoskeletal Disorders: Yes Musculoskeletal Disorders: Degenerate Disk Disease, Arthritis, Chronic Back Pain Endocrine Hx Endocrine Disorders: Yes Endocrine Disorders: Diabetes, Insulin dep HEENT HX ENT Disorders: Yes (WEARS GLASSES) HEENT Disorders: Cataract Loss of Vision: Denies Hearing Impairment: Denies Cancer Hx Cancer: No Psychosocial Hx Psychiatric Problems: No Behavioral Health Disorders: Sleep Difficulties, Depression Integumentary HX Skin/Integumentary Disorder: No Blood Transfusions Hx Blood Disorders: No Reviewed Nursing Assessment Reviewed/Agree w Nursing PMH: Yes Family Medical History Family Hx: Completed stroke 09 BROTHER Family history: Asthma 03 MOTHER History of - respiratory disease 03 FATHER (PNEUMONIA) 03 MOTHER (ASTHMA, COPD) Constitutional: weakness other (short of breath) EENTM: no symptoms reported Respiratory: dyspnea on exertion short of breath other (no breath sounds) Cardiovascular: no symptoms reported Gastrointestinal: no symptoms reported Genitourinary: no symptoms reported Physical Exam Vital Signs Vital Sign - Last 12Hours 09/11/16 09/11/16 09:31 09:54 Temp 95.4 Pulse 121 Resp 24 B/P 153/99 Pulse Ox 82 O2 Delivery Room Air O2 Flow Rate 4 Capillary Refill : Less Than 3 Seconds General Appearance: WD/WN Other (with oxygen short of breath with exertion) Eyes: Bilateral Eye Normal Inspection HEENT: TMs Normal Normal ENT Inspection Pharynx Normal Neck: Full Range of Motion Normal Inspection Non Tender Respiratory: Decreased Breath Sounds Wheezing Cardiovascular: Regular Rate, Rhythm No Murmur Gastrointestinal: Non Tender Soft Assessment/Plan Assessment and Plan COPD with acute exacerbation. Diabetes. Arthritis Clinical Quality Measures DVT/VTE Risk/Contraindication: Risk Factor Score Per Nursin RFS Level Per Nursing on Admit: 4+=Very High SINA HAYES DO Sep 12, 2016 07:57
[2016-09-12 08:00] VITALS: BP 134/82
[2016-09-12] MEDS: ENOXAPARIN 40 MG/0.4 ML (LOVENOX) SYR SC SCH (08:29)
[2016-09-12] MEDS: FUROSEMIDE 40 MG (LASIX) TAB PO SCH (08:29)
[2016-09-12] MEDS: NS IV 1000 ML 1,000 ML IV SCH (08:30)
[2016-09-12] MEDS: fentaNYL INJECTION 100 MCG/2 ML AMP IVP PRN ×4 (08:30→21:00)
[2016-09-12 12:30] VITALS: BP 135/76
[2016-09-12 16:25] VITALS: BP 129/82
[2016-09-12] MEDS: amLODIPine 10 MG (NORVASC) TAB PO SCH (21:00)
[2016-09-12] MEDS: traZODone 50 MG (DESYREL) TAB PO PRN (21:00)
[2016-09-12] MEDS: ATORVASTATIN 10 MG (LIPITOR) TABLET PO SCH (21:00)
[2016-09-12] MEDS: DOCUSATE SODIUM 100 MG (COLACE) CAP PO PRN (21:00)
[2016-09-12] MEDS: PRAMIPEXOLE 0.5 MG TAB (MIRAPEX) PO SCH (21:00)
[2016-09-12] MEDS: SERTRALINE 50 MG (ZOLOFT) TABLET PO SCH (21:00)
[2016-09-12] MEDS: GABAPENTIN 300 MG (NEURONTIN) CAP PO SCH (21:00)
[2016-09-12] MEDS ORDERED: NON-FORMULARY MEDICATION 1 EA EA (Pramipexole Di-HCl (Pramipexole Dihydrochloride) 1 MG) PO SCH (21:00)
[2016-09-13] VITALS: BP 134/79
[2016-09-13] MEDS: fentaNYL INJECTION 100 MCG/2 ML AMP IVP PRN ×5 (02:11→16:45)
[2016-09-13] MEDS: RT-ALBUTEROL/IPRATROPIUM 3 ML (DUONEB) VIAL INH SCH ×6 (02:17→23:13)
[2016-09-13 04:00] VITALS: BP 164/80
[2016-09-13 05:32] LABS: BASOPHILS % (AUTO) 0 % (0-10); EOSINOPHILS % (AUTO) 0 % (0-10); LYMPHOCYTES # (AUTO) 0.6 X 10^3 (1.0-4.0); LYMPHOCYTES % (AUTO) 4 % (12-44); MEAN CORPUSCULAR HEMOGLOBIN 27 PG (25-34); MEAN CORPUSCULAR HGB CONC 31 G/DL (32-36); MEAN CORPUSCULAR VOLUME 88 FL (80-99); MONOCYTES # (AUTO) 0.4 X 10^3 (0.0-1.0); MONOCYTES % (AUTO) 3 % (0-12); NEUTROPHILS # (AUTO) 13.3 X 10^3 (1.8-7.8); NEUTROPHILS % (AUTO) 93 % (42-75); PLATELET COUNT 313 10^3/uL (130-400); RED BLOOD COUNT 3.63 10^6/uL (4.35-5.85); RED CELL DISTRIBUTION WIDTH 14.6 % (10.0-14.5); WHITE BLOOD COUNT 14.3 10^3/uL (4.3-11.0)
[2016-09-13] MEDS: methylPREDNISolone 40 MG/ML (Solu-MEDROL) VIAL IV SCH ×3 (05:35→20:40)
[2016-09-13] MEDS: inSUlin (REGULAR) HUMAN 1 UNIT/0.01 ML (CHARGE PER UNIT) SC SCH ×4 (05:42→20:37)
[2016-09-13] MEDS: HYDROcodone/APAP 10 MG/325 MG (LORTAB) TAB PO PRN ×3 (05:43→20:40)
[2016-09-13 05:46] LABS: ANISOCYTOSIS SLIGHT; BAND NEUTROPHILS 0 %; BASOPHILS % (MANUAL) 0 %; EOSINOPHILS % (MANUAL) 0 %; LYMPHOCYTES % (MANUAL) 4 %; NEUTROPHILS % (MANUAL) 94 %; POLYCHROMASIA SLIGHT
[2016-09-13] MEDS: NS IV 1000 ML 1,000 ML IV SCH (05:49)
[2016-09-13 05:52] LABS: ANION GAP 10 MMOL/L (5-14); BLOOD UREA NITROGEN 24 MG/DL (7-18); BUN/CREATININE RATIO 29; CARBON DIOXIDE 28 MMOL/L (21-32); CHLORIDE 101 MMOL/L (98-107); CREATININE SERUM 0.83 MG/DL (0.60-1.30); GFR ESTIMATED > 60; POTASSIUM 4.6 MMOL/L (3.6-5.0); SODIUM 139 MMOL/L (135-145)
[2016-09-13 05:53] LABS: ALANINE AMINOTRANSFERASE 14 U/L (0-55); ALBUMIN 3.7 G/DL (3.2-4.5); ASPARTATE AMINO TRANSFERASE 10 U/L (5-34); BILIRUBIN,TOTAL 0.1 MG/DL (0.1-1.0); CALCIUM 9.2 MG/DL (8.5-10.1); GLUCOSE 343 MG/DL (70-105); TOTAL PROTEIN 6.4 G/DL (6.4-8.2)
[2016-09-13] MEDS: RT-ADVAIR HFA 115/21 MCG PER PUFF IH SCH ×2 (06:40→18:54)
--- NOTE | 2016-09-13 06:40 | Pulmonary Progress Note ---
Subjective Subjective/Events-last exam PT states SOB is improved however she is still wheezy. Exam Exam Vital Signs Date Time Temp Pulse Resp B/P Pulse Ox O2 Delivery O2 Flow Rate FiO2 09/13/16 02:17 94 4.00 09/13/16 01:00 66 09/13/16 00:00 97.9 78 20 134/79 97 Nasal Cannula 4.00 09/12/16 22:07 98 4.00 09/12/16 21:00 Nasal Cannula 4.00 09/12/16 19:14 4.00 09/12/16 19:12 97 4.00 09/12/16 19:00 83 09/12/16 16:25 97.1 77 20 129/82 96 Nasal Cannula 4.00 09/12/16 14:23 95 Nasal Cannula 4.00 09/12/16 13:00 93 09/12/16 12:30 98.2 88 18 135/76 99 Nasal Cannula 4.00 09/12/16 10:05 96 Nasal Cannula 4.00 09/12/16 09:00 Nasal Cannula 4.00 09/12/16 08:00 98.4 118 20 134/82 94 Nasal Cannula 4.00 09/12/16 06:48 94 Nasal Cannula 4.00 I & O 09/13/16 07:00 Intake Total 4025 ml Balance 4025 ml General Appearance: WD/WN Other (with oxygen short of breath with exertion) HEENT: TMs Normal Normal ENT Inspection Pharynx Normal Neck: Full Range of Motion Normal Inspection Non Tender Respiratory: Decreased Breath Sounds Wheezing Cardiovascular: Regular Rate, Rhythm No Murmur Capillary Refill: Less Than 3 Seconds Extremity: Non Tender No Calf Tenderness Neurologic/Psychiatric: Alert Oriented x3 No Motor/Sensory Deficits Results Lab Laboratory Tests 09/11/16 09:36 09/12/16 06:52 09/13/16 05:12 Assessment/Plan Assessment/Plan COPDAE -solumedrol- is now 20mg Q8 per PCP SVNS,. advair obesity Clinical Quality Measures DVT/VTE Risk/Contraindication: Risk Factor Score Per Nursin RFS Level Per Nursing on Admit: 4+=Very High MK RAMOS DO Sep 13, 2016 06:40
[2016-09-13 08:00] VITALS: BP 126/79
--- NOTE | 2016-09-13 08:07 | Progress Note (SOAP) ---
Subjective Subjective/Events-last exam patient has some wheezing. Patient's blood sugar with Solu-Medrol close to 500. Decrease Solu-Medrol. COPD with acute exacerbation. Uncontrolled diabetes due to Solu-Medrol. White blood cell count elevated due to the Solu-Medrol Objective Exam Vital Signs Date Time Temp Pulse Resp B/P Pulse Ox O2 Delivery O2 Flow Rate FiO2 09/13/16 06:47 4.00 09/13/16 06:40 96 4.00 09/13/16 04:00 98.0 79 20 164/80 98 Nasal Cannula 4.00 09/13/16 02:17 94 4.00 09/13/16 01:00 66 09/13/16 00:00 97.9 78 20 134/79 97 Nasal Cannula 4.00 09/12/16 22:07 98 4.00 09/12/16 21:00 Nasal Cannula 4.00 09/12/16 19:14 4.00 09/12/16 19:12 97 4.00 09/12/16 19:00 83 09/12/16 16:25 97.1 77 20 129/82 96 Nasal Cannula 4.00 09/12/16 14:23 95 Nasal Cannula 4.00 09/12/16 13:00 93 09/12/16 12:30 98.2 88 18 135/76 99 Nasal Cannula 4.00 09/12/16 10:05 96 Nasal Cannula 4.00 09/12/16 09:00 Nasal Cannula 4.00 I & O 09/13/16 07:00 Intake Total 4475 ml Balance 4475 ml Capillary Refill : Less Than 3 Seconds General Appearance: No Apparent Distress WD/WN HEENT: Normal ENT Inspection Neck: Full Range of Motion Normal Inspection Respiratory: Decreased Breath Sounds Wheezing Gastrointestinal: non tender soft Extremity: Pedal Edema Results Lab Laboratory Tests 09/13/16 05:12 Laboratory Tests 09/12/16 10:08: Glucometer 495*H 09/12/16 15:30: Glucometer 473*H 09/12/16 20:34: Glucometer 477*H 09/13/16 05:12: Alanine Aminotransferase (ALT/SGPT) 14, Albumin 3.7, Alkaline Phosphatase 94, Anion Gap 10, Anisocytosis SLIGHT, Aspartate Amino Transf (AST/SGOT) 10, BUN/ Creatinine Ratio 29, Band Neutrophils 0, Basophils # (Auto) 0.0, Basophils % ( Manual) 0, Basophils (%) (Auto) 0, Blood Urea Nitrogen 24H, Calcium Level 9.2, Carbon Dioxide Level 28, Chloride Level 101, Creatinine 0.83, Eosinophils # ( Auto) 0.0, Eosinophils % (Manual) 0, Eosinophils (%) (Auto) 0, Estimat Glomerular Filtration Rate > 60, Glucose Level 343H, Hematocrit 32L, Hemoglobin 9.9L, Lymphocytes # (Auto) 0.6L, Lymphocytes % (Manual) 4, Lymphocytes (%) (Auto ) 4L, Mean Corpuscular Hemoglobin 27, Mean Corpuscular Hemoglobin Concent 31L, Mean Corpuscular Volume 88, Mean Platelet Volume 11.0H, Monocytes # (Auto) 0.4, Monocytes % (Manual) 2, Monocytes (%) (Auto) 3, Neutrophils # (Auto) 13.3H, Neutrophils % (Manual) 94, Neutrophils (%) (Auto) 93H, Platelet Count 313, Polychromasia SLIGHT, Potassium Level 4.6, Red Blood Count 3.63L, Red Cell Distribution Width 14.6H, Sodium Level 139, Total Bilirubin 0.1, Total Protein 6.4, White Blood Count 14.3H 09/13/16 05:36: Glucometer 342H Microbiology 09/11/16 Blood Culture - Preliminary, Resulted No growth 09/11/16 Gram Stain - Final, Resulted 09/11/16 Sputum Culture - Preliminary, Resulted Usual/normal fang isolated. Assessment/Plan Assessment/Plan Assess & Plan/Chief Complaint COPD with acute exacerbation. Diabetes. Pretibial edema. History of tobacco usage. Patient complaining of pain when coughs in rib area Diagnosis/Problems: Clinical Quality Measures DVT/VTE Risk/Contraindication: Risk Factor Score Per Nursin RFS Level Per Nursing on Admit: 4+=Very High RADHA HAYES DO Sep 13, 2016 08:07
[2016-09-13] MEDS ORDERED: FUROSEMIDE 40 MG/4 ML INJ (LASIX) IVP NR (08:15)
--- NOTE | 2016-09-13 09:12 | Physician Query-General Query ---
Physician Query-General Query to Physician: Please clarify if patient was in acute respiratory failure on admit? pulse ox - 82% treatment - 4L nasal canula abnormal blood gases thank you PHYSICIAN RESPONSE: Based on the clinical findings in the record, please respond to the query above on this document as an addendum. Possible, probable, or questionable diagnosis can be coded for INPATIENTS ONLY. Physician Response: Physician Response no If you have questions please contact: Pelletising Extruder Operator: Ext: Thank you for your time and cooperation. Clinical Parole Officer/Pelletising Extruder Operator This is a permanent part of the medical record CAPRI BOWSER Sep 13, 2016 09:12 RADHA HAYES DO Sep 13, 2016 12:45
[2016-09-13] MEDS: ENOXAPARIN 40 MG/0.4 ML (LOVENOX) SYR SC SCH (09:31)
[2016-09-13] MEDS: FUROSEMIDE 40 MG (LASIX) TAB PO SCH (09:31)
[2016-09-13] MEDS: MILK OF MAGNESIA 400 MG/5 ML 30 ML UDC PO PRN ×2 (09:32→20:40)
[2016-09-13] MEDS: DOCUSATE SODIUM 100 MG (COLACE) CAP PO PRN ×2 (09:32→20:40)
--- NOTE | 2016-09-13 10:55 | Diagnostic Imaging Report ---
EXAMINATION: PA and lateral views of the chest. INDICATION: Shortness of breath. Cough. FINDINGS: The heart size is enlarged. There is no luis pulmonary edema. Mild vascular congestion, however, is suggested by prominence of the vascular markings and mild cephalization. There is flattening of the diaphragms, compatible with COPD. Minimal scarring or atelectasis in the right lung base is noted. No effusion or pneumothorax. The mediastinum and brian appear unremarkable. IMPRESSION: Cardiomegaly with minimal vascular congestion. COPD. Dictated by: Dictated on workstation # [id number]
[2016-09-13 12:00] VITALS: BP 131/78
[2016-09-13] MEDS: CATHETER FLUSH 10 ML SYR IV PRN (14:38)
[2016-09-13 16:05] VITALS: BP 147/90
[2016-09-13 19:05] VITALS: BP 128/70
[2016-09-13] MEDS: SERTRALINE 50 MG (ZOLOFT) TABLET PO SCH (20:39)
[2016-09-13] MEDS: ATORVASTATIN 10 MG (LIPITOR) TABLET PO SCH (20:39)
[2016-09-13] MEDS: traZODone 50 MG (DESYREL) TAB PO PRN (20:40)
[2016-09-13] MEDS: amLODIPine 10 MG (NORVASC) TAB PO SCH (20:40)
[2016-09-13] MEDS: PRAMIPEXOLE 0.5 MG TAB (MIRAPEX) PO SCH (20:40)
[2016-09-13] MEDS: GABAPENTIN 300 MG (NEURONTIN) CAP PO SCH (20:40)
[2016-09-13] MEDS ORDERED: inSUlin (REGULAR) HUMAN 1 UNIT/0.01 ML (CHARGE PER UNIT) SC ONE (20:45)
[2016-09-14] VITALS: BP 123/85
[2016-09-14] MEDS: fentaNYL INJECTION 100 MCG/2 ML AMP IVP PRN ×7 (00:18→21:31)
[2016-09-14] MEDS: RT-ALBUTEROL/IPRATROPIUM 3 ML (DUONEB) VIAL INH SCH ×6 (02:27→22:03)
[2016-09-14 04:00] VITALS: BP 138/81
[2016-09-14] MEDS: methylPREDNISolone 40 MG/ML (Solu-MEDROL) VIAL IV SCH ×3 (05:26→21:28)
[2016-09-14 05:41] LABS: BASOPHILS % (AUTO) 0 % (0-10); EOSINOPHILS % (AUTO) 0 % (0-10); LYMPHOCYTES % (AUTO) 7 % (12-44); MEAN CORPUSCULAR HEMOGLOBIN 27 PG (25-34); MEAN CORPUSCULAR HGB CONC 31 G/DL (32-36); MEAN CORPUSCULAR VOLUME 88 FL (80-99); MEAN PLATELET VOLUME 11.3 FL (7.4-10.4); MONOCYTES # (AUTO) 0.6 X 10^3 (0.0-1.0); MONOCYTES % (AUTO) 4 % (0-12); NEUTROPHILS # (AUTO) 12.7 X 10^3 (1.8-7.8); NEUTROPHILS % (AUTO) 89 % (42-75); PLATELET COUNT 363 10^3/uL (130-400); RED BLOOD COUNT 3.92 10^6/uL (4.35-5.85); RED CELL DISTRIBUTION WIDTH 14.7 % (10.0-14.5); WHITE BLOOD COUNT 14.3 10^3/uL (4.3-11.0)
[2016-09-14 06:03] LABS: ALANINE AMINOTRANSFERASE 19 U/L (0-55); ANION GAP 9 MMOL/L (5-14); ASPARTATE AMINO TRANSFERASE 12 U/L (5-34); BILIRUBIN,TOTAL 0.2 MG/DL (0.1-1.0); BLOOD UREA NITROGEN 24 MG/DL (7-18); BUN/CREATININE RATIO 30; CALCIUM 9.5 MG/DL (8.5-10.1); CARBON DIOXIDE 29 MMOL/L (21-32); CHLORIDE 98 MMOL/L (98-107); GFR ESTIMATED > 60; GLUCOSE 301 MG/DL (70-105); SODIUM 136 MMOL/L (135-145); TOTAL PROTEIN 6.8 G/DL (6.4-8.2)
[2016-09-14 06:06] LABS: POTASSIUM 5.2 MMOL/L (3.6-5.0)
[2016-09-14] MEDS: inSUlin (REGULAR) HUMAN 1 UNIT/0.01 ML (CHARGE PER UNIT) SC SCH ×4 (06:43→21:33)
[2016-09-14] MEDS: HYDROcodone/APAP 10 MG/325 MG (LORTAB) TAB PO PRN ×3 (06:43→18:47)
[2016-09-14] MEDS: RT-ADVAIR HFA 115/21 MCG PER PUFF IH SCH ×2 (07:53→18:39)
[2016-09-14 08:30] VITALS: BP 154/71
[2016-09-14] MEDS: FUROSEMIDE 40 MG (LASIX) TAB PO SCH (08:54)
[2016-09-14] MEDS: MILK OF MAGNESIA 400 MG/5 ML 30 ML UDC PO PRN (08:54)
[2016-09-14] MEDS: DOCUSATE SODIUM 100 MG (COLACE) CAP PO PRN (08:54)
[2016-09-14] MEDS: ENOXAPARIN 40 MG/0.4 ML (LOVENOX) SYR SC SCH (08:54)
[2016-09-14] MEDS ORDERED: inSUlin DETERMIR 1 UNIT/0.01 ML (LEVEMIR) CHARGE PER UNIT SQ ONE (12:00)
[2016-09-14] MEDS ORDERED: FUROSEMIDE 40 MG (LASIX) TAB PO ONE (12:00)
--- NOTE | 2016-09-14 12:03 | Progress Note (SOAP) ---
Subjective Subjective/Events-last exam Fwup COPD exacerbation, uncontrolled DMII, pulmonary edema, Leukocytosis due to steroids. Still c/o short of air and rib pain if coughs. Objective Exam Vital Signs Date Time Temp Pulse Resp B/P Pulse Ox O2 Delivery O2 Flow Rate FiO2 09/14/16 10:56 97 4.00 09/14/16 08:30 97.4 81 22 154/71 95 Nasal Cannula 4.00 09/14/16 08:06 96 09/14/16 08:00 Nasal Cannula 4.00 09/14/16 07:56 96 09/14/16 07:54 96 4.00 09/14/16 07:46 77 09/14/16 04:00 97.6 76 18 138/81 92 Nasal Cannula 4.00 09/14/16 02:28 97 4.00 09/14/16 01:00 66 09/14/16 00:00 96.5 72 19 123/85 98 Nasal Cannula 4.00 09/13/16 23:13 99 4.00 09/13/16 20:30 95 Nasal Cannula 4.00 09/13/16 19:05 97.5 72 22 128/70 95 Nasal Cannula 4.00 09/13/16 19:00 70 09/13/16 18:55 95 4.00 09/13/16 16:05 98.5 74 22 147/90 97 Nasal Cannula 4.00 09/13/16 14:32 94 4.00 09/13/16 13:01 88 I & O 09/14/16 07:00 Intake Total 2810 ml Balance 2810 ml Capillary Refill : Less Than 3 Seconds General Appearance: No Apparent Distress Neck: Supple Respiratory: Crackles Decreased Breath Sounds Wheezing Cardiovascular: Regular Rate, Rhythm Gallop/S3 Gastrointestinal: normal bowel sounds non tender soft Extremity: Non Tender No Calf Tenderness No Pedal Edema Neurologic/Psychiatric: Alert Oriented x3 Results Lab Laboratory Tests 09/13/16 14:16: Glucometer 434*H 09/13/16 20:19: Glucometer 442*H 09/14/16 05:00: Alanine Aminotransferase (ALT/SGPT) 19, Albumin 4.0, Alkaline Phosphatase 95, Anion Gap 9, Aspartate Amino Transf (AST/SGOT) 12, BUN/Creatinine Ratio 30, Basophils # (Auto) 0.0, Basophils (%) (Auto) 0, Blood Urea Nitrogen 24H, Calcium Level 9.5, Carbon Dioxide Level 29, Chloride Level 98, Creatinine 0.80, Eosinophils # (Auto) 0.0, Eosinophils (%) (Auto) 0, Estimat Glomerular Filtration Rate > 60, Glucose Level 301H, Hematocrit 35, Hemoglobin 10.7L, Lymphocytes # (Auto) 1.0, Lymphocytes (%) (Auto) 7L, Mean Corpuscular Hemoglobin 27, Mean Corpuscular Hemoglobin Concent 31L, Mean Corpuscular Volume 88, Mean Platelet Volume 11.3H, Monocytes # (Auto) 0.6, Monocytes (%) (Auto) 4, Neutrophils # (Auto) 12.7H, Neutrophils (%) (Auto) 89H, Platelet Count 363, Potassium Level 5.2H, Red Blood Count 3.92L, Red Cell Distribution Width 14.7H, Sodium Level 136, Total Bilirubin 0.2, Total Protein 6.8, White Blood Count 14.3H 09/14/16 09:29: Glucometer 406*H Microbiology 09/11/16 Blood Culture - Preliminary, Resulted No growth 09/11/16 Gram Stain - Final, Complete 09/11/16 Sputum Culture - Final, Complete Usual/normal fang isolated. Assessment/Plan Assessment/Plan Assess & Plan/Chief Complaint 1. COPD with acute exacerbation--on SVNS, oxygen and solumedrol 2. Uncontrolled DMII--add levemir 3. Pulmonary edema--extra lasix now and add IS 4. Leukocytosis--due to steroids Diagnosis/Problems: Clinical Quality Measures DVT/VTE Risk/Contraindication: Risk Factor Score Per Nursin RFS Level Per Nursing on Admit: 4+=Very High TYRONE BONILLA DO Sep 14, 2016 12:03
[2016-09-14 12:20] VITALS: BP 145/70
[2016-09-14 16:13] VITALS: BP 165/70
[2016-09-14 19:53] VITALS: BP 173/74
[2016-09-14] MEDS ORDERED: inSUlin DETERMIR 1 UNIT/0.01 ML (LEVEMIR) CHARGE PER UNIT SQ SCH (21:00)
[2016-09-14] MEDS: PRAMIPEXOLE 0.5 MG TAB (MIRAPEX) PO SCH (21:27)
[2016-09-14] MEDS: SERTRALINE 50 MG (ZOLOFT) TABLET PO SCH (21:28)
[2016-09-14] MEDS: GABAPENTIN 300 MG (NEURONTIN) CAP PO SCH (21:28)
[2016-09-14] MEDS: ATORVASTATIN 10 MG (LIPITOR) TABLET PO SCH (21:28)
[2016-09-14] MEDS: amLODIPine 10 MG (NORVASC) TAB PO SCH (21:36)
[2016-09-15] VITALS: BP 148/66
[2016-09-15] MEDS: RT-ALBUTEROL/IPRATROPIUM 3 ML (DUONEB) VIAL INH SCH ×6 (02:30→22:26)
[2016-09-15] MEDS: HYDROcodone/APAP 10 MG/325 MG (LORTAB) TAB PO PRN ×4 (02:52→21:30)
[2016-09-15] MEDS: fentaNYL INJECTION 100 MCG/2 ML AMP IVP PRN ×6 (02:52→20:03)
[2016-09-15 04:00] VITALS: BP 155/81
[2016-09-15] MEDS: inSUlin (REGULAR) HUMAN 1 UNIT/0.01 ML (CHARGE PER UNIT) SC SCH ×4 (05:53→21:31)
[2016-09-15] MEDS: methylPREDNISolone 40 MG/ML (Solu-MEDROL) VIAL IV SCH ×3 (05:53→21:30)
[2016-09-15] MEDS: RT-ADVAIR HFA 115/21 MCG PER PUFF IH SCH ×2 (07:12→18:33)
[2016-09-15] MEDS: FUROSEMIDE 40 MG (LASIX) TAB PO SCH (08:32)
[2016-09-15] MEDS: ENOXAPARIN 40 MG/0.4 ML (LOVENOX) SYR SC SCH (08:32)
[2016-09-15 08:33] VITALS: BP 161/77
--- NOTE | 2016-09-15 11:23 | Progress Note (SOAP) ---
Subjective Subjective/Events-last exam Fwup COPD exacerbation, uncontrolled DMII, pulmonary edema, Leukocytosis due to steroids. Feels little better today. C/O no BM. Objective Exam Vital Signs Date Time Temp Pulse Resp B/P Pulse Ox O2 Delivery O2 Flow Rate FiO2 09/15/16 10:25 96 4.00 09/15/16 08:33 97.9 83 20 161/77 96 Nasal Cannula 4.00 09/15/16 08:00 Nasal Cannula 4.00 09/15/16 07:15 94 4.00 09/15/16 07:12 94 4.00 09/15/16 07:02 72 09/15/16 04:00 97.8 68 22 155/81 96 Nasal Cannula 4.00 09/15/16 02:31 94 4.00 09/15/16 01:00 77 09/15/16 00:00 97.8 78 22 148/66 95 Nasal Cannula 4.00 09/14/16 22:03 98 4.00 09/14/16 20:00 73 09/14/16 20:00 Nasal Cannula 4.00 09/14/16 19:53 98.1 75 20 173/74 96 Nasal Cannula 4.00 09/14/16 18:42 4.00 09/14/16 18:40 98 4.00 09/14/16 16:13 98.1 76 20 165/70 96 Nasal Cannula 4.00 09/14/16 14:53 98 4.00 09/14/16 12:51 84 09/14/16 12:20 98.2 80 20 145/70 96 Nasal Cannula 4.00 I & O 09/15/16 07:00 Intake Total 3490 ml Balance 3490 ml Capillary Refill : Less Than 3 Seconds General Appearance: No Apparent Distress Neck: Supple Respiratory: Decreased Breath Sounds (but clearer today) Cardiovascular: Regular Rate, Rhythm Systolic Murmur Gallop/S3 Gastrointestinal: normal bowel sounds non tender soft Extremity: Non Tender No Calf Tenderness No Pedal Edema Neurologic/Psychiatric: Alert Oriented x3 Results Lab Laboratory Tests 09/14/16 15:19: Glucometer 405*H 09/14/16 20:38: Glucometer 415*H 09/15/16 05:32: Glucometer 248H 09/15/16 09:30: Glucometer 372H Microbiology 09/11/16 Blood Culture - Preliminary, Resulted No growth 09/11/16 Gram Stain - Final, Complete 09/11/16 Sputum Culture - Final, Complete Usual/normal fang isolated. Assessment/Plan Assessment/Plan Assess & Plan/Chief Complaint 1. COPD with acute exacerbation--on SVNS, oxygen and solumedrol 2. Uncontrolled DMII--increase levemir dose 3. Pulmonary edema--extra lasix again today and continue IS 4. Leukocytosis--due to steroids, CBC in AM 5. Constipation--senokot-S and miralax now, has MOM prn Diagnosis/Problems: Clinical Quality Measures DVT/VTE Risk/Contraindication: Risk Factor Score Per Nursin RFS Level Per Nursing on Admit: 4+=Very High TYRONE BONILLA DO Sep 15, 2016 11:23
[2016-09-15] MEDS ORDERED: POLYETHYLENE GLYCOL 17 GM (MIRALAX) PACK PO ONE (11:30)
[2016-09-15] MEDS ORDERED: FUROSEMIDE 20 MG (LASIX) TAB PO ONE (11:30)
[2016-09-15] MEDS ORDERED: SENNA W/DOCUSATE (SENOKOT S) TABLET PO ONE (11:30)
[2016-09-15 12:30] VITALS: BP 148/77
[2016-09-15] MEDS: MILK OF MAGNESIA 400 MG/5 ML 30 ML UDC PO PRN ×2 (12:34→21:30)
[2016-09-15] MEDS: DOCUSATE SODIUM 100 MG (COLACE) CAP PO PRN ×2 (12:34→21:30)
[2016-09-15 15:59] VITALS: BP 142/88
[2016-09-15 20:20] VITALS: BP 147/87
[2016-09-15] MEDS: GABAPENTIN 300 MG (NEURONTIN) CAP PO SCH (21:29)
[2016-09-15] MEDS: ATORVASTATIN 10 MG (LIPITOR) TABLET PO SCH (21:29)
[2016-09-15] MEDS: traZODone 50 MG (DESYREL) TAB PO PRN (21:29)
[2016-09-15] MEDS: amLODIPine 10 MG (NORVASC) TAB PO SCH (21:29)
[2016-09-15] MEDS: SERTRALINE 50 MG (ZOLOFT) TABLET PO SCH (21:30)
[2016-09-15] MEDS: inSUlin DETERMIR 1 UNIT/0.01 ML (LEVEMIR) CHARGE PER UNIT SQ SCH (21:30)
[2016-09-15] MEDS: PRAMIPEXOLE 0.5 MG TAB (MIRAPEX) PO SCH (21:30)
[2016-09-16] VITALS: BP 157/87
[2016-09-16] MEDS: fentaNYL INJECTION 100 MCG/2 ML AMP IVP PRN (01:06)
[2016-09-16] MEDS: RT-ALBUTEROL/IPRATROPIUM 3 ML (DUONEB) VIAL INH SCH ×6 (02:30→22:18)
[2016-09-16 04:30] VITALS: BP 143/80
[2016-09-16 05:21] LABS: MEAN PLATELET VOLUME 11.2 FL (7.4-10.4); RED BLOOD COUNT 3.9 10^6/uL (4.35-5.85); RED CELL DISTRIBUTION WIDTH 14.5 % (10.0-14.5); WHITE BLOOD COUNT 12.2 10^3/uL (4.3-11.0)
[2016-09-16] MEDS: HYDROcodone/APAP 10 MG/325 MG (LORTAB) TAB PO PRN ×4 (05:29→23:43)
[2016-09-16] MEDS: methylPREDNISolone 40 MG/ML (Solu-MEDROL) VIAL IV SCH ×2 (05:33→18:43)
[2016-09-16] MEDS: inSUlin (REGULAR) HUMAN 1 UNIT/0.01 ML (CHARGE PER UNIT) SC SCH ×4 (05:34→20:15)
[2016-09-16 05:45] LABS: ANION GAP 7 MMOL/L (5-14); BLOOD UREA NITROGEN 22 MG/DL (7-18); BUN/CREATININE RATIO 26; CALCIUM 9.1 MG/DL (8.5-10.1); CARBON DIOXIDE 34 MMOL/L (21-32); CHLORIDE 94 MMOL/L (98-107); CREATININE SERUM 0.86 MG/DL (0.60-1.30); GFR ESTIMATED > 60; GLUCOSE 288 MG/DL (70-105); SODIUM 135 MMOL/L (135-145)
[2016-09-16 05:46] LABS: POTASSIUM 5.7 MMOL/L (3.6-5.0)
--- NOTE | 2016-09-16 07:36 | Pulmonary Progress Note ---
Subjective Subjective/Events-last exam PT is doing better. No complications noted. Exam Exam Vital Signs Date Time Temp Pulse Resp B/P Pulse Ox O2 Delivery O2 Flow Rate FiO2 09/16/16 04:30 97.9 72 18 143/80 99 Nasal Cannula 4.00 09/16/16 02:31 99 4.00 09/16/16 01:00 67 09/16/16 00:00 97.0 62 18 157/87 97 Nasal Cannula 4.00 09/15/16 22:28 98 4.00 09/15/16 20:20 96.8 73 18 147/87 95 Nasal Cannula 4.00 09/15/16 20:00 Nasal Cannula 4.00 09/15/16 19:00 80 09/15/16 18:39 4.00 09/15/16 18:34 97 4.00 09/15/16 15:59 96.9 75 18 142/88 96 Nasal Cannula 4.00 09/15/16 14:43 94 4.00 09/15/16 13:04 84 09/15/16 12:30 98.0 93 18 148/77 98 Nasal Cannula 4.00 09/15/16 10:25 96 4.00 09/15/16 08:33 97.9 83 20 161/77 96 Nasal Cannula 4.00 09/15/16 08:00 Nasal Cannula 4.00 I & O 09/16/16 06:59 Intake Total 2520 ml Balance 2520 ml General Appearance: No Apparent Distress HEENT: Normal ENT Inspection Neck: Supple Respiratory: Decreased Breath Sounds (but clearer today) Cardiovascular: Regular Rate, Rhythm Systolic Murmur Gallop/S3 Capillary Refill: Less Than 3 Seconds Gastrointestinal: normal bowel sounds non tender soft Extremity: Non Tender No Calf Tenderness No Pedal Edema Neurologic/Psychiatric: Alert Oriented x3 Results Lab Laboratory Tests 09/16/16 04:25 Assessment/Plan Assessment/Plan COPDAE -solumedrol- is now 20mg Q12 SVNS,. advair obesity Clinical Quality Measures DVT/VTE Risk/Contraindication: Risk Factor Score Per Nursin RFS Level Per Nursing on Admit: 4+=Very High MK RAMOS DO Sep 16, 2016 07:36
[2016-09-16] MEDS: RT-ADVAIR HFA 115/21 MCG PER PUFF IH SCH ×2 (07:45→18:49)
--- NOTE | 2016-09-16 07:52 | Progress Note (SOAP) ---
Subjective Subjective/Events-last exam patient is doing better. Patient states she's not read to go home. Patient able to get to the bathroom. Patient have physical therapy. Patient constipated with pain medication. DC the fentanyl Objective Exam Vital Signs Date Time Temp Pulse Resp B/P Pulse Ox O2 Delivery O2 Flow Rate FiO2 09/16/16 07:00 58 09/16/16 04:30 97.9 72 18 143/80 99 Nasal Cannula 4.00 09/16/16 02:31 99 4.00 09/16/16 01:00 67 09/16/16 00:00 97.0 62 18 157/87 97 Nasal Cannula 4.00 09/15/16 22:28 98 4.00 09/15/16 20:20 96.8 73 18 147/87 95 Nasal Cannula 4.00 09/15/16 20:00 Nasal Cannula 4.00 09/15/16 19:00 80 09/15/16 18:39 4.00 09/15/16 18:34 97 4.00 09/15/16 15:59 96.9 75 18 142/88 96 Nasal Cannula 4.00 09/15/16 14:43 94 4.00 09/15/16 13:04 84 09/15/16 12:30 98.0 93 18 148/77 98 Nasal Cannula 4.00 09/15/16 10:25 96 4.00 09/15/16 08:33 97.9 83 20 161/77 96 Nasal Cannula 4.00 09/15/16 08:00 Nasal Cannula 4.00 I & O 09/16/16 07:00 Intake Total 2520 ml Balance 2520 ml Capillary Refill : Less Than 3 Seconds General Appearance: No Apparent Distress WD/WN HEENT: Normal ENT Inspection Neck: Full Range of Motion Normal Inspection Respiratory: Decreased Breath Sounds Other (patient on 4 L of nasal oxygen which is at home) Cardiovascular: Regular Rate, Rhythm Gastrointestinal: non tender soft Results Lab Laboratory Tests 09/16/16 04:25 Laboratory Tests 09/15/16 09:30: Glucometer 372H 09/15/16 14:30: Glucometer 383H 09/15/16 20:56: Glucometer 354H 09/16/16 04:25: Anion Gap 7, BUN/Creatinine Ratio 26, Blood Urea Nitrogen 22H, Calcium Level 9.1 , Carbon Dioxide Level 34H, Chloride Level 94L, Creatinine 0.86, Estimat Glomerular Filtration Rate > 60, Glucose Level 288H, Hematocrit 35, Hemoglobin 10.5L, Mean Corpuscular Hemoglobin 27, Mean Corpuscular Hemoglobin Concent 30L, Mean Corpuscular Volume 89, Mean Platelet Volume 11.2H, Platelet Count 311, Potassium Level 5.7H, Red Blood Count 3.90L, Red Cell Distribution Width 14.5, Sodium Level 135, White Blood Count 12.2H 09/16/16 05:03: Glucometer 293H Microbiology 09/11/16 Blood Culture - Preliminary, Resulted No growth 09/11/16 Gram Stain - Final, Complete 09/11/16 Sputum Culture - Final, Complete Usual/normal fang isolated. Assessment/Plan Assessment/Plan Assess & Plan/Chief Complaint COPD with acute exacerbation. Diabetes. Pretibial edema. History of tobacco usage. Patient complaining of pain when coughs in rib area. . COPD with acute exacerbation is improving. Diabetes sugars coming down some. History of tobacco usage. Patient improving Diagnosis/Problems: Clinical Quality Measures DVT/VTE Risk/Contraindication: Risk Factor Score Per Nursin RFS Level Per Nursing on Admit: 4+=Very High RADHA HAYES DO Sep 16, 2016 07:52
[2016-09-16 08:00] VITALS: BP 142/83
[2016-09-16] MEDS ORDERED: BISACODYL 10 MG SUPP (DULCOLAX) PR NR (08:15)
[2016-09-16] MEDS ORDERED: BISACODYL 5 MG (DULCOLAX) TABLET PO NR (08:15)
[2016-09-16] MEDS: MILK OF MAGNESIA 400 MG/5 ML 30 ML UDC PO PRN (08:24)
[2016-09-16] MEDS: ENOXAPARIN 40 MG/0.4 ML (LOVENOX) SYR SC SCH (08:24)
[2016-09-16] MEDS: FUROSEMIDE 40 MG (LASIX) TAB PO SCH (08:24)
[2016-09-16 12:00] VITALS: BP 170/91
--- NOTE | 2016-09-16 14:02 | Physical Therapy Evaluation ---
PT Evaluation-General Medical Diagnosis Admission Date Sep 11, 2016 at 11:31 Medical Diagnosis: COPD exacerbation Onset Date: Sep 11, 2016 Therapy Diagnosis Therapy Diagnosis: decrease mobility and pulmonary function Height/Weight Height (Feet): 5 Height (Inches): 9.00 Weight (Pounds): 221 Weight (Ounces): 0.0 Precautions Precautions/Isolations: Standard Precautions Referral Physician: Papo Reason for Referral: Evaluation/Treatment Medical History Pertinent Medical History: Arthritis, COPD, DM, Heart Failure, HTN, Smoking Additional Medical History failed conservative treatments Current History hypoxia;SOA at home Reviewed History: Yes Social History Home: Single Level Current Living Status: Spouse Prior/Core FIM Prior Level of Function Functional Lea Measure 0=Not Assessed/NA 4=Minimal Assistance 1=Total Assistance 5=Supervision or Setup 2=Maximal Assistance 6=Modified Lea 3=Moderate Assistance 7=Complete Lea Bed Mobility: 7 Transfers (B,C,W/C) (FIM): 7 Gait: 7 uses cane at home occasionally PT Evaluation-Current Subjective Patient agrees to PT. Pain Numeric Pain Scale: 5-Moderate Pain Location: Right, Left, Upper Location Body Site: Side Pain Description: Ache Comment: from coughing per patient report Objective Patient Orientation: Normal For Age Problem Solving: Good Attachments: Oxygen 4L O2 NC ROM/Strength ROM Lower Extremities bilateral LE WFL Strenght Lower Extremities bilateral LE WFL Integumentary/Posture Integumentary noted bilateral LE edema Bowel Incontinence: No Bladder Incontinence: No Posture WNL Neuromuscular (Tone, Coordination, Reflexes) grossly intact Sensory Vision: Wears Glasses Hearing: Functional Sensation Right Lower Extremit: Impaired Sensation Left Lower Extremity: Impaired Transfers Functional Lea Measure 0=Not Assessed/NA 4=Minimal Assistance 1=Total Assistance 5=Supervision or Setup 2=Maximal Assistance 6=Modified Lea 3=Moderate Assistance 7=Complete Lea Transfers (B, C, W/C) (FIM): 6 Scootin Rollin Supine to/from Sit: 6 Sit to/from Stand: 6 Gait Mode of Locomotion: Walk Anticipated Mode of Locomotion: Walk Gait (FIM): 6 Distance (FIM): 3=150 ft Distance: 450' Gait Level of Assist: 6 Gait Assistive Device: FWW Comments/Gait Description safe and functional; FWW utilized for energy conservation with breathing techniques to address pulmonary function Balance Sitting Static: Normal Sitting Dynamic: Normal Standing Static: Normal Standing Dynamic: Normal Assessment/Needs 65 y.o. female, is currently at maximum LOF with gross motor skills and does not require skilled PT intervention at this time. Patient is modified independent and safe to be up ad heber in room with extended tubing (O2). Rehab Potential: Fair Post Rehab Potential-Barriers: COPD PT Plan Treatment/Plan Treatment Plan: Discontinue PT Pt/Family Agrees w/Plan: Yes Time/GCodes Time In: 1326 Time Out: 1346 Total Billed Treatment Time: 20 Total Billed Treatment 1 visit EVM 20 min G Codes Necessary: No LAURA SALINAS PT Sep 16, 2016 14:02
[2016-09-16 15:51] VITALS: BP 172/82
[2016-09-16 19:58] VITALS: BP 153/77
[2016-09-16] MEDS: amLODIPine 10 MG (NORVASC) TAB PO SCH (20:07)
[2016-09-16] MEDS: GABAPENTIN 300 MG (NEURONTIN) CAP PO SCH (20:07)
[2016-09-16] MEDS: SERTRALINE 50 MG (ZOLOFT) TABLET PO SCH (20:07)
[2016-09-16] MEDS: ATORVASTATIN 10 MG (LIPITOR) TABLET PO SCH (20:07)
[2016-09-16] MEDS: PRAMIPEXOLE 0.5 MG TAB (MIRAPEX) PO SCH (20:07)
[2016-09-16] MEDS: inSUlin DETERMIR 1 UNIT/0.01 ML (LEVEMIR) CHARGE PER UNIT SQ SCH (20:15)
[2016-09-17] VITALS: BP 142/67
[2016-09-17] MEDS: RT-ALBUTEROL/IPRATROPIUM 3 ML (DUONEB) VIAL INH SCH ×2 (01:25→07:14)
[2016-09-17 03:30] VITALS: BP 158/94
[2016-09-17] MEDS: CATHETER FLUSH 10 ML SYR IV PRN (05:33)
[2016-09-17] MEDS: inSUlin (REGULAR) HUMAN 1 UNIT/0.01 ML (CHARGE PER UNIT) SC SCH ×2 (05:33→09:12)
[2016-09-17] MEDS: methylPREDNISolone 40 MG/ML (Solu-MEDROL) VIAL IV SCH (05:33)
[2016-09-17] MEDS: HYDROcodone/APAP 10 MG/325 MG (LORTAB) TAB PO PRN ×2 (05:43→11:53)
[2016-09-17] MEDS: RT-ADVAIR HFA 115/21 MCG PER PUFF IH SCH (07:14)
--- NOTE | 2016-09-17 07:35 | Pulmonary Progress Note ---
Subjective Subjective/Events-last exam No complications noted currently. Exam Exam Vital Signs Date Time Temp Pulse Resp B/P Pulse Ox O2 Delivery O2 Flow Rate FiO2 09/17/16 07:17 98 4.00 09/17/16 07:14 98 4.00 09/17/16 03:30 96.7 69 20 158/94 99 Nasal Cannula 4.00 09/17/16 01:26 95 4.00 09/17/16 01:00 70 09/17/16 00:00 96.9 72 18 142/67 98 Nasal Cannula 4.00 09/16/16 22:18 96 4.00 09/16/16 20:00 Nasal Cannula 4.00 09/16/16 19:58 97.2 81 20 153/77 94 Nasal Cannula 4.00 09/16/16 19:00 74 09/16/16 18:57 98 4.00 09/16/16 18:51 96 4.00 09/16/16 15:51 97.4 81 22 172/82 99 Nasal Cannula 4.00 09/16/16 15:11 94 4.00 09/16/16 13:00 76 09/16/16 12:00 97.4 80 26 170/91 98 Nasal Cannula 4.00 09/16/16 11:40 94 4.00 09/16/16 08:00 97 4.00 09/16/16 08:00 Nasal Cannula 4.00 09/16/16 08:00 97.7 75 22 142/83 96 Nasal Cannula 4.00 I & O 09/17/16 07:00 Intake Total 3446 ml Balance 3446 ml General Appearance: No Apparent Distress HEENT: Normal ENT Inspection Neck: Supple Respiratory: Decreased Breath Sounds (but clearer today) Cardiovascular: Regular Rate, Rhythm Systolic Murmur Gallop/S3 Capillary Refill: Less Than 3 Seconds Gastrointestinal: normal bowel sounds non tender soft Extremity: Non Tender No Calf Tenderness No Pedal Edema Neurologic/Psychiatric: Alert Oriented x3 Results Lab Laboratory Tests 09/16/16 04:25 Assessment/Plan Assessment/Plan COPDAE -solumedrol- is now 20mg Q12 -- D/C today SVNS,. advair obesity PT is ok for discharge from pulmonary standpoint. Clinical Quality Measures DVT/VTE Risk/Contraindication: Risk Factor Score Per Nursin RFS Level Per Nursing on Admit: 4+=Very High MK RAMOS DO Sep 17, 2016 07:35
--- NOTE | 2016-09-17 07:41 | Progress Note (SOAP) ---
Subjective Subjective/Events-last exam patient breathing better and feeling better. Patient be discharged today. Nurse to call me at 11 a.m. how patient is doing Objective Exam Vital Signs Date Time Temp Pulse Resp B/P Pulse Ox O2 Delivery O2 Flow Rate FiO2 09/17/16 07:17 98 4.00 09/17/16 07:14 98 4.00 09/17/16 03:30 96.7 69 20 158/94 99 Nasal Cannula 4.00 09/17/16 01:26 95 4.00 09/17/16 01:00 70 09/17/16 00:00 96.9 72 18 142/67 98 Nasal Cannula 4.00 09/16/16 22:18 96 4.00 09/16/16 20:00 Nasal Cannula 4.00 09/16/16 19:58 97.2 81 20 153/77 94 Nasal Cannula 4.00 09/16/16 19:00 74 09/16/16 18:57 98 4.00 09/16/16 18:51 96 4.00 09/16/16 15:51 97.4 81 22 172/82 99 Nasal Cannula 4.00 09/16/16 15:11 94 4.00 09/16/16 13:00 76 09/16/16 12:00 97.4 80 26 170/91 98 Nasal Cannula 4.00 09/16/16 11:40 94 4.00 09/16/16 08:00 97 4.00 09/16/16 08:00 Nasal Cannula 4.00 09/16/16 08:00 97.7 75 22 142/83 96 Nasal Cannula 4.00 I & O 09/17/16 07:00 Intake Total 3446 ml Balance 3446 ml Capillary Refill : Less Than 3 Seconds General Appearance: No Apparent Distress WD/WN HEENT: Normal ENT Inspection Neck: Normal Inspection Respiratory: Chest Non Tender No Accessory Muscle Use No Respiratory Distress Decreased Breath Sounds Cardiovascular: Regular Rate, Rhythm No Murmur Gastrointestinal: non tender soft Results Lab Laboratory Tests 09/16/16 09:36: Glucometer 360H 09/16/16 14:25: Glucometer 193H 09/16/16 20:02: Glucometer 242H 09/17/16 05:27: Glucometer 320H Microbiology 09/11/16 Blood Culture - Final, Complete No growth 09/11/16 Gram Stain - Final, Complete 09/11/16 Sputum Culture - Final, Complete Usual/normal fang isolated. Assessment/Plan Assessment/Plan Assess & Plan/Chief Complaint COPD with acute exacerbation. Diabetes. Pretibial edema. History of tobacco usage. Patient complaining of pain when coughs in rib area. . COPD with acute exacerbation is improving. Diabetes sugars coming down some. History of tobacco usage. Patient improving. . 09/17/16. COPD with acute exacerbation. Diabetes. History of tobacco usage. Plan to discharge today Diagnosis/Problems: Clinical Quality Measures DVT/VTE Risk/Contraindication: Risk Factor Score Per Nursin RFS Level Per Nursing on Admit: 4+=Very High RADHA HAYES DO Sep 17, 2016 07:40
--- NOTE | 2016-09-17 07:42 | Discharge Inst-Simple/Standard ---
Discharge Inst-Standard Patient Instructions/Follow Up Plan of Care/Instructions/FU: 2 office next Friday area Activity as Tolerated: Yes Discharge Diet: ADA Diet RADHA HAYES DO Sep 17, 2016 07:42
[2016-09-17] MEDS: FUROSEMIDE 40 MG (LASIX) TAB PO SCH (08:22)
[2016-09-17] MEDS: ENOXAPARIN 40 MG/0.4 ML (LOVENOX) SYR SC SCH (08:23)
[2016-09-17 08:30] VITALS: BP 141/69
[2016-09-17 11:47] VITALS: BP 182/88
[2016-09-17] MEDS ORDERED: inSUlin (REGULAR) HUMAN 1 UNIT/0.01 ML (CHARGE PER UNIT) SC SCH (16:00)
--- NOTE | 2016-09-21 07:25 | Discharge Summary ---
Diagnosis/Chief Complaint Date of Admission Sep 11, 2016 at 11:31 Date of Discharge Sep 17, 2016 at 14:30 Discharge Date: Sep 17, 2016 Admission Diagnosis Admission Diagnosis COPD with acute exacerbation. Diabetes. Arthritis Discharge Diagnosis shortness of breath. Chronic obstructive pulmonary disease with acute exacerbation. Unspecified asthma. Chronic pulmonary edema. Hypertension. Type II diabetes. Obesity. Personal history of nicotine dependence. Reason Hospital Visit patient came to the office short of breath and trouble breathing. Pulse ox 82. Patient sent out to the emergency room. Patient had breathing treatments for now without much success. Patient has COPD with acute exacerbation. Patient has history of smoking. Patient and known diabetic. Ration admitted for COPD with acute exacerbation. Patient states last few days has trouble walking due to the shortness of breath. Surgeries right ankle, left knee, gallbladder, bilateral carpal tunnel Discharge Summary Consultations pulmonology Discharge Physical Examination Allergies: Coded Allergies: enalapril (Verified Allergy, Severe, ANAPHYLAXIS, 08/22/13) Vitals & I&Os Vital Signs Date Time Temp Pulse Resp B/P Pulse Ox O2 Delivery O2 Flow Rate FiO2 09/17/16 14:30 09/17/16 11:47 98.4 84 28 95 Nasal Cannula 4.00 Hospital Course ration in hospital did better. Patient did breathing better. Patient sugars go up with Solu-Medrol Labs (last 24 hrs) Laboratory Tests 09/11/16 09:36: Activated Partial Thromboplast Time 30, Alanine Aminotransferase (ALT/SGPT) 18, Albumin 3.9, Alkaline Phosphatase 107, Anion Gap 11, Aspartate Amino Transf (AST /SGOT) 14, B-Type Natriuretic Peptide 23.5, BUN/Creatinine Ratio 19, Basophils # (Auto) 0.1, Basophils (%) (Auto) 1, Blood Urea Nitrogen 15, Calcium Level 10.5H, Carbon Dioxide Level 34H, Chloride Level 93L, Creatinine 0.79, Eosinophils # (Auto) 0.0, Eosinophils (%) (Auto) 0, Estimat Glomerular Filtration Rate > 60, Glucose Level 261H, Hematocrit 37, Hemoglobin 11.3L, INR Comment 0.9, Lactic Acid Level 1.8, Lymphocytes # (Auto) 0.9L, Lymphocytes (%) ( Auto) 9L, Magnesium Level 1.5L, Mean Corpuscular Hemoglobin 27, Mean Corpuscular Hemoglobin Concent 31L, Mean Corpuscular Volume 89, Mean Platelet Volume 10.8H, Monocytes # (Auto) 0.7, Monocytes (%) (Auto) 6, Neutrophils # ( Auto) 8.8H, Neutrophils (%) (Auto) 84H, Platelet Count 289, Potassium Level 4.4 , Prothrombin Time 12.3, Red Blood Count 4.15L, Red Cell Distribution Width 14.2 , Sodium Level 138, Total Bilirubin 0.3, Total Protein 7.1, Troponin I < 0.30, White Blood Count 10.4 09/11/16 10:12: Urine Bacteria NEGATIVE, Urine Bilirubin NEGATIVE, Urine Casts PRESENT, Urine Clarity CLEAR, Urine Color YELLOW, Urine Crystals NONE, Urine Culture Indicated NO, Urine Glucose (UA) NEGATIVE, Urine Hyaline Casts 0-2H, Urine Ketones NEGATIVE, Urine Leukocyte Esterase 1+H, Urine Mucus NEGATIVE, Urine Nitrite NEGATIVE, Urine Protein NEGATIVE, Urine RBC 0-2, Urine RBC (Auto) NEGATIVE, Urine Specific [place] 1.010L, Urine Squamous Epithelial Cells 0-2, Urine Urobilinogen NORMAL, Urine WBC 0-2, Urine pH 7 09/11/16 11:13: [place] Test POSITIVE, Arterial Blood Base Excess 7.4H, Arterial Blood HCO3 34H, Arterial Blood Oxygen Saturation 94, Arterial Blood Partial Pressure CO2 52H, Arterial Blood Partial Pressure O2 59L, Arterial Blood Total CO2 35.3H, Arterial Blood pH 7.42, Blood Gas Inspired Oxygen 4, Blood Gas Patient Temperature 95.4, Blood Gas Puncture Site LEFT RADIAL, Blood Gas Ventilator Setting NO 09/11/16 15:47: Glucometer 446*H 09/11/16 19:56: Glucometer 491*H 09/12/16 05:02: Glucometer 334H 09/12/16 06:52: Alanine Aminotransferase (ALT/SGPT) 17, Albumin 3.7, Alkaline Phosphatase 94, Anion Gap 10, Anisocytosis SLIGHT, Aspartate Amino Transf (AST/SGOT) 9, BUN/ Creatinine Ratio 28, Band Neutrophils 7, Basophils # (Auto) 0.0, Basophils % ( Manual) 0, Basophils (%) (Auto) 0, Blood Urea Nitrogen 23H, Calcium Level 9.7, Carbon Dioxide Level 30, Chloride Level 98, Creatinine 0.81, Eosinophils # (Auto ) 0.0, Eosinophils % (Manual) 0, Eosinophils (%) (Auto) 0, Estimat Glomerular Filtration Rate > 60, Glucose Level 315H, Hematocrit 32L, Hemoglobin 10.0L, Lymphocytes # (Auto) 0.6L, Lymphocytes % (Manual) 6, Lymphocytes (%) (Auto) 6L, Mean Corpuscular Hemoglobin 27, Mean Corpuscular Hemoglobin Concent 32, Mean Corpuscular Volume 87, Mean Platelet Volume 11.3H, Monocytes # (Auto) 0.4, Monocytes % (Manual) 1, Monocytes (%) (Auto) 3, Neutrophils # (Auto) 9.8H, Neutrophils % (Manual) 86, Neutrophils (%) (Auto) 91H, Platelet Count 299, Potassium Level 4.7, Red Blood Count 3.65L, Red Cell Distribution Width 14.3, Sodium Level 138, Total Bilirubin 0.2, Total Protein 6.5, White Blood Count 10.8 09/12/16 10:08: Glucometer 495*H 09/12/16 15:30: Glucometer 473*H 09/12/16 20:34: Glucometer 477*H 09/13/16 05:12: Alanine Aminotransferase (ALT/SGPT) 14, Albumin 3.7, Alkaline Phosphatase 94, Anion Gap 10, Anisocytosis SLIGHT, Aspartate Amino Transf (AST/SGOT) 10, BUN/ Creatinine Ratio 29, Band Neutrophils 0, Basophils # (Auto) 0.0, Basophils % ( Manual) 0, Basophils (%) (Auto) 0, Blood Urea Nitrogen 24H, Calcium Level 9.2, Carbon Dioxide Level 28, Chloride Level 101, Creatinine 0.83, Eosinophils # ( Auto) 0.0, Eosinophils % (Manual) 0, Eosinophils (%) (Auto) 0, Estimat Glomerular Filtration Rate > 60, Glucose Level 343H, Hematocrit 32L, Hemoglobin 9.9L, Lymphocytes # (Auto) 0.6L, Lymphocytes % (Manual) 4, Lymphocytes (%) (Auto ) 4L, Mean Corpuscular Hemoglobin 27, Mean Corpuscular Hemoglobin Concent 31L, Mean Corpuscular Volume 88, Mean Platelet Volume 11.0H, Monocytes # (Auto) 0.4, Monocytes % (Manual) 2, Monocytes (%) (Auto) 3, Neutrophils # (Auto) 13.3H, Neutrophils % (Manual) 94, Neutrophils (%) (Auto) 93H, Platelet Count 313, Polychromasia SLIGHT, Potassium Level 4.6, Red Blood Count 3.63L, Red Cell Distribution Width 14.6H, Sodium Level 139, Total Bilirubin 0.1, Total Protein 6.4, White Blood Count 14.3H 09/13/16 05:36: Glucometer 342H 09/13/16 09:38: Glucometer 393H 09/13/16 14:16: Glucometer 434*H 09/13/16 20:19: Glucometer 442*H 09/14/16 05:00: Alanine Aminotransferase (ALT/SGPT) 19, Albumin 4.0, Alkaline Phosphatase 95, Anion Gap 9, Aspartate Amino Transf (AST/SGOT) 12, BUN/Creatinine Ratio 30, Basophils # (Auto) 0.0, Basophils (%) (Auto) 0, Blood Urea Nitrogen 24H, Calcium Level 9.5, Carbon Dioxide Level 29, Chloride Level 98, Creatinine 0.80, Eosinophils # (Auto) 0.0, Eosinophils (%) (Auto) 0, Estimat Glomerular Filtration Rate > 60, Glucose Level 301H, Hematocrit 35, Hemoglobin 10.7L, Lymphocytes # (Auto) 1.0, Lymphocytes (%) (Auto) 7L, Mean Corpuscular Hemoglobin 27, Mean Corpuscular Hemoglobin Concent 31L, Mean Corpuscular Volume 88, Mean Platelet Volume 11.3H, Monocytes # (Auto) 0.6, Monocytes (%) (Auto) 4, Neutrophils # (Auto) 12.7H, Neutrophils (%) (Auto) 89H, Platelet Count 363, Potassium Level 5.2H, Red Blood Count 3.92L, Red Cell Distribution Width 14.7H, Sodium Level 136, Total Bilirubin 0.2, Total Protein 6.8, White Blood Count 14.3H 09/14/16 09:29: Glucometer 406*H 09/14/16 15:19: Glucometer 405*H 09/14/16 20:38: Glucometer 415*H 09/15/16 05:32: Glucometer 248H 09/15/16 09:30: Glucometer 372H 09/15/16 14:30: Glucometer 383H 09/15/16 20:56: Glucometer 354H 09/16/16 04:25: Anion Gap 7, BUN/Creatinine Ratio 26, Blood Urea Nitrogen 22H, Calcium Level 9.1 , Carbon Dioxide Level 34H, Chloride Level 94L, Creatinine 0.86, Estimat Glomerular Filtration Rate > 60, Glucose Level 288H, Hematocrit 35, Hemoglobin 10.5L, Mean Corpuscular Hemoglobin 27, Mean Corpuscular Hemoglobin Concent 30L, Mean Corpuscular Volume 89, Mean Platelet Volume 11.2H, Platelet Count 311, Potassium Level 5.7H, Red Blood Count 3.90L, Red Cell Distribution Width 14.5, Sodium Level 135, White Blood Count 12.2H 09/16/16 05:03: Glucometer 293H 09/16/16 09:36: Glucometer 360H 09/16/16 14:25: Glucometer 193H 09/16/16 20:02: Glucometer 242H 09/17/16 05:27: Glucometer 320H 09/17/16 08:29: Glucometer 401*H Microbiology 09/11/16 Blood Culture - Final, Complete No growth 09/11/16 Gram Stain - Final, Complete 09/11/16 Sputum Culture - Final, Complete Usual/normal fang isolated. Laboratory Tests 09/11/16 09:36 09/12/16 06:52 09/13/16 05:12 09/14/16 05:00 09/16/16 04:25 Pending Labs Microbiology Date/Time Source Procedure Growth Status 09/11/16 10:40 Peripheral Cephalic (Forehead) Blood Culture - Final No growth Complete 09/11/16 09:36 Peripheral Lt Ac Blood Culture - Final No growth Complete 09/11/16 11:43 Sputum Expectorated Gram Stain - Final Complete 09/11/16 11:43 Sputum Expectorated Sputum Culture - Final Usual/normal fang isolated. Complete Laboratory Tests 09/11/16 09:36: Activated Partial Thromboplast Time 30, Alanine Aminotransferase (ALT/SGPT) 18, Albumin 3.9, Alkaline Phosphatase 107, Anion Gap 11, Aspartate Amino Transf (AST /SGOT) 14, B-Type Natriuretic Peptide 23.5, BUN/Creatinine Ratio 19, Basophils # (Auto) 0.1, Basophils (%) (Auto) 1, Blood Urea Nitrogen 15, Calcium Level 10.5 , Carbon Dioxide Level 34, Chloride Level 93, Creatinine 0.79, Eosinophils # ( Auto) 0.0, Eosinophils (%) (Auto) 0, Estimat Glomerular Filtration Rate > 60, Glucose Level 261, Hematocrit 37, Hemoglobin 11.3, INR Comment 0.9, Lactic Acid Level 1.8, Lymphocytes # (Auto) 0.9, Lymphocytes (%) (Auto) 9, Magnesium Level 1.5, Mean Corpuscular Hemoglobin 27, Mean Corpuscular Hemoglobin Concent 31, Mean Corpuscular Volume 89, Mean Platelet Volume 10.8, Monocytes # (Auto) 0.7, Monocytes (%) (Auto) 6, Neutrophils # (Auto) 8.8, Neutrophils (%) (Auto) 84, Platelet Count 289, Potassium Level 4.4, Prothrombin Time 12.3, Red Blood Count 4.15, Red Cell Distribution Width 14.2, Sodium Level 138, Total Bilirubin 0.3, Total Protein 7.1, Troponin I < 0.30, White Blood Count 10.4 09/11/16 10:12: Urine Bacteria NEGATIVE, Urine Bilirubin NEGATIVE, Urine Casts PRESENT, Urine Clarity CLEAR, Urine Color YELLOW, Urine Crystals NONE, Urine Culture Indicated NO, Urine Glucose (UA) NEGATIVE, Urine Hyaline Casts 0-2, Urine Ketones NEGATIVE , Urine Leukocyte Esterase 1+, Urine Mucus NEGATIVE, Urine Nitrite NEGATIVE, Urine Protein NEGATIVE, Urine RBC 0-2, Urine RBC (Auto) NEGATIVE, Urine Specific [place] 1.010, Urine Squamous Epithelial Cells 0-2, Urine Urobilinogen NORMAL, Urine WBC 0-2, Urine pH 7 09/11/16 11:13: [place] Test POSITIVE, Arterial Blood Base Excess 7.4, Arterial Blood HCO3 34, Arterial Blood Oxygen Saturation 94, Arterial Blood Partial Pressure CO2 52, Arterial Blood Partial Pressure O2 59, Arterial Blood Total CO2 35.3, Arterial Blood pH 7.42, Blood Gas Inspired Oxygen 4, Blood Gas Patient Temperature 95.4, Blood Gas Puncture Site LEFT RADIAL, Blood Gas Ventilator Setting NO 09/11/16 15:47: Glucometer 446 09/11/16 19:56: Glucometer 491 09/12/16 05:02: Glucometer 334 09/12/16 06:52: Alanine Aminotransferase (ALT/SGPT) 17, Albumin 3.7, Alkaline Phosphatase 94, Anion Gap 10, Anisocytosis SLIGHT, Aspartate Amino Transf (AST/SGOT) 9, BUN/ Creatinine Ratio 28, Band Neutrophils 7, Basophils # (Auto) 0.0, Basophils % ( Manual) 0, Basophils (%) (Auto) 0, Blood Urea Nitrogen 23, Calcium Level 9.7, Carbon Dioxide Level 30, Chloride Level 98, Creatinine 0.81, Eosinophils # (Auto ) 0.0, Eosinophils % (Manual) 0, Eosinophils (%) (Auto) 0, Estimat Glomerular Filtration Rate > 60, Glucose Level 315, Hematocrit 32, Hemoglobin 10.0, Lymphocytes # (Auto) 0.6, Lymphocytes % (Manual) 6, Lymphocytes (%) (Auto) 6, Mean Corpuscular Hemoglobin 27, Mean Corpuscular Hemoglobin Concent 32, Mean Corpuscular Volume 87, Mean Platelet Volume 11.3, Monocytes # (Auto) 0.4, Monocytes % (Manual) 1, Monocytes (%) (Auto) 3, Neutrophils # (Auto) 9.8, Neutrophils % (Manual) 86, Neutrophils (%) (Auto) 91, Platelet Count 299, Potassium Level 4.7, Red Blood Count 3.65, Red Cell Distribution Width 14.3, Sodium Level 138, Total Bilirubin 0.2, Total Protein 6.5, White Blood Count 10.8 09/12/16 10:08: Glucometer 495 09/12/16 15:30: Glucometer 473 09/12/16 20:34: Glucometer 477 09/13/16 05:12: Alanine Aminotransferase (ALT/SGPT) 14, Albumin 3.7, Alkaline Phosphatase 94, Anion Gap 10, Anisocytosis SLIGHT, Aspartate Amino Transf (AST/SGOT) 10, BUN/ Creatinine Ratio 29, Band Neutrophils 0, Basophils # (Auto) 0.0, Basophils % ( Manual) 0, Basophils (%) (Auto) 0, Blood Urea Nitrogen 24, Calcium Level 9.2, Carbon Dioxide Level 28, Chloride Level 101, Creatinine 0.83, Eosinophils # ( Auto) 0.0, Eosinophils % (Manual) 0, Eosinophils (%) (Auto) 0, Estimat Glomerular Filtration Rate > 60, Glucose Level 343, Hematocrit 32, Hemoglobin 9.9, Lymphocytes # (Auto) 0.6, Lymphocytes % (Manual) 4, Lymphocytes (%) (Auto) 4, Mean Corpuscular Hemoglobin 27, Mean Corpuscular Hemoglobin Concent 31, Mean Corpuscular Volume 88, Mean Platelet Volume 11.0, Monocytes # (Auto) 0.4, Monocytes % (Manual) 2, Monocytes (%) (Auto) 3, Neutrophils # (Auto) 13.3, Neutrophils % (Manual) 94, Neutrophils (%) (Auto) 93, Platelet Count 313, Polychromasia SLIGHT, Potassium Level 4.6, Red Blood Count 3.63, Red Cell Distribution Width 14.6, Sodium Level 139, Total Bilirubin 0.1, Total Protein 6.4, White Blood Count 14.3 09/13/16 05:36: Glucometer 342 09/13/16 09:38: Glucometer 393 09/13/16 14:16: Glucometer 434 09/13/16 20:19: Glucometer 442 09/14/16 05:00: Alanine Aminotransferase (ALT/SGPT) 19, Albumin 4.0, Alkaline Phosphatase 95, Anion Gap 9, Aspartate Amino Transf (AST/SGOT) 12, BUN/Creatinine Ratio 30, Basophils # (Auto) 0.0, Basophils (%) (Auto) 0, Blood Urea Nitrogen 24, Calcium Level 9.5, Carbon Dioxide Level 29, Chloride Level 98, Creatinine 0.80, Eosinophils # (Auto) 0.0, Eosinophils (%) (Auto) 0, Estimat Glomerular Filtration Rate > 60, Glucose Level 301, Hematocrit 35, Hemoglobin 10.7, Lymphocytes # (Auto) 1.0, Lymphocytes (%) (Auto) 7, Mean Corpuscular Hemoglobin 27, Mean Corpuscular Hemoglobin Concent 31, Mean Corpuscular Volume 88, Mean Platelet Volume 11.3, Monocytes # (Auto) 0.6, Monocytes (%) (Auto) 4, Neutrophils # (Auto) 12.7, Neutrophils (%) (Auto) 89, Platelet Count 363, Potassium Level 5.2, Red Blood Count 3.92, Red Cell Distribution Width 14.7, Sodium Level 136, Total Bilirubin 0.2, Total Protein 6.8, White Blood Count 14.3 09/14/16 09:29: Glucometer 406 09/14/16 15:19: Glucometer 405 09/14/16 20:38: Glucometer 415 09/15/16 05:32: Glucometer 248 09/15/16 09:30: Glucometer 372 09/15/16 14:30: Glucometer 383 09/15/16 20:56: Glucometer 354 09/16/16 04:25: Anion Gap 7, BUN/Creatinine Ratio 26, Blood Urea Nitrogen 22, Calcium Level 9.1 , Carbon Dioxide Level 34, Chloride Level 94, Creatinine 0.86, Estimat Glomerular Filtration Rate > 60, Glucose Level 288, Hematocrit 35, Hemoglobin 10.5, Mean Corpuscular Hemoglobin 27, Mean Corpuscular Hemoglobin Concent 30, Mean Corpuscular Volume 89, Mean Platelet Volume 11.2, Platelet Count 311, Potassium Level 5.7, Red Blood Count 3.90, Red Cell Distribution Width 14.5, Sodium Level 135, White Blood Count 12.2 09/16/16 05:03: Glucometer 293 09/16/16 09:36: Glucometer 360 09/16/16 14:25: Glucometer 193 09/16/16 20:02: Glucometer 242 09/17/16 05:27: Glucometer 320 09/17/16 08:29: Glucometer 401 Radiology Reviewed chest x-ray cardiomegaly with minimal vascular congestion. COPD Discharge Home Medications: Active Scripts Active Reported Novolog Flexpen (Insulin Aspart) 300 Units/3 Ml Solution SQ SLIDING/SCALE PRN Levemir Flextouch (Insulin Detemir) 100 Unit/1 Ml Insuln.pen 25 Unit SQ DAILY@ 1000 Fish Oil 1,000 mg Softgel (Dale-3/Dha/Epa/Fish Oil) 1 Each Capsule 1,000 Mg PO DAILY Centrum Silver Tablet (Multivit-Min/FA/Lycopene/Lut) 1 Each Tablet 1 Tab PO DAILY Metformin HCl 500 Mg Tablet 1,000 Mg PO BID TAKES 2 (500MG) TABLETS Sertraline HCl 50 Mg Tablet 50 Mg PO HS Amlodipine Besylate 10 Mg Tablet 10 Mg PO HS Naproxen 500 Mg Tablet 500 Mg PO BID Furosemide 40 Mg Tablet 40 Mg PO DAILY Pramipexole Dihydrochloride (Pramipexole Di-HCl) 1 Mg Tablet 1 Mg PO HS Hydrocodon-Acetaminophn 10-325 (Hydrocodone/Acetaminophen) 1 Each Tablet 1 Tab PO QID PRN Glimepiride 4 Mg Tablet 8 Mg PO DAILY TAKES 2 (4 MG) TABLETS Spiriva Respimat (Tiotropium [place]) 4 Gm Mist.inhal 2 Puff IH DAILY Symbicort 160-4.5 Mcg Inhaler (Budesonide/Formoterol Fumarate) 10.2 Gm Hfa.aer.ad 2 Puff IH BID Potassium Chloride 10 Meq Capsule.er 10 Meq PO HS Gabapentin 300 Mg Capsule 300 Mg PO HS Atorvastatin Calcium 10 Mg Tablet 10 Mg PO HS Instructions to patient/family Please see electonic discharge instructions given to patient. Clinical Quality Measures DVT/VTE Risk/Contraindication: Risk Factor Score Per Nursin RFS Level Per Nursing on Admit: 4+=Very High RADHA HAYES DO Sep 21, 2016 07:25
== END 2016-09-17 14:30 | disposition home or self-care (01) | DRG 191 ==
LOC: EDUNIT# 09:30 → ER 09:32 → 4TH 11:31
PROVIDERS: ADMIT Family Medicine; ATTEND Family Medicine
DX: J44.1 Chronic obstructive pulmonary disease with (acute) exacerbation (principal); J45.909 Unspecified asthma, uncomplicated; J81.1 Chronic pulmonary edema; I10 Essential (primary) hypertension; E11.65 Type 2 diabetes mellitus with hyperglycemia; T49.0X5A Adverse effect of local antifungal, anti-infective and anti-inflammatory drugs, initial encounter; K21.9 Gastro-esophageal reflux disease without esophagitis; K59.09 Other constipation; R60.0 Localized edema; E66.9 Obesity, unspecified; Z68.32 Body mass index [BMI] 32.0-32.9, adult; Z87.891 Personal history of nicotine dependence; Z79.4 Long term (current) use of insulin
CPT/HCPCS: 36415; 71010; 71020; 80048; 80053; 81000; 82805; 82962; 83605; 83735; 83880; 84484; 85007; 85025; 85027; 85610; 85730; 87040; 87070; 87205; 93005; 94640; 94664; 94760; 96374; 96375

== ENCOUNTER 2016-09-29 22:24 | Inpatient (IN) | payer MEDICARE ==
[~2016-09-29] VITALS: Ht 170.2 cm; Wt 102.7 kg
--- OUTSIDE RECORDS SUMMARY | 2016-09-29 22:29 | XMS REPORT | Continuity of Care Document ---
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 Name Role Phone RADHA HAYES DO PCP Insurance Providers Payer Name Policy Number Subscriber Name Relationship [employer] Gold Choice [id number] Denice Barkley 17 Self / Same As Patient Advance Directives Directive Response Recorded Date/Time Advance Directives No 07/30/16 6:20pm Health Care Power of Rendering Equipment Tender No 07/30/16 6:20pm Organ Donor No 07/30/16 [...] Puff Inhalation Twice A Day 08/05/15 Tiotropium [place] 4 Gm 2 Puff Inhalation Daily 11/13/15 [...] 1 Each 1 Tab Oral Daily 11/13/15 [place]-3/Dha/Epa/Fish Oil 1 Each 1,000 Mg Oral Daily [...] Every 4HRS as needed 02/08/11 Discontinued Tiotropium [place] 1 Inh Aerp, 1 Inh Inhalation Daily [...] for Referral: FOLLOW UP WITH DR RAMOS ([phone]) ON Friday09/03/16 AT 11 AM Care Plan [...] - 99.5) 08/05/2016 11:53am Temperature (Calculated Celsius) 37.71141 degrees C (36.4 - 37.5) 08/05/2016 10:35am [...] 9.00 inches 07/30/2016 6:30pm Height (Calculated Centimeters) 175.459379 cm 07/30/2016 6:30pm Weight (Pounds) 218 pounds 07/30/2016 6:30pm Weight (Ounces) 5.0 oz 07/30/2016 6:30pm Weight (Calculated Grams) 08226.89 gm 07/30/2016 6:30pm Weight (Calculated Kilograms) 99.526366 kilograms 07/30/2016 6:30pm Calculated BMI 32.2 07/30/2016 [...] Discharge/Depart Date Attending Provider Admitted Inpatient [facility] 07/30/16 5:54pm RADHA HAYES DO Recent Diagnosis Hypoxia
[2016-09-29] MEDS ORDERED: DEXAMETHASONE PF 10 MG/ML (DECADRON) VIAL ONE (22:58)
[2016-09-29] MEDS ORDERED: RT-ALBUTEROL/IPRATROPIUM 3 ML (DUONEB) VIAL ONE (22:58)
[2016-09-29] MEDS ORDERED: RT-ALBUTEROL/IPRATROPIUM 3 ML (DUONEB) VIAL INH ONE (23:00)
[2016-09-29] MEDS ORDERED: DEXAMETHASONE 4 MG/ML SDV (DECADRON) IH ONE (23:00)
--- NOTE | 2016-09-29 23:06 | ED Dyspnea ---
General Stated Complaint: SOA Source of Information: Patient History of Present Illness Time Seen by Provider: 22:50 Initial Comments PT ARRIVES VIA POV FROM HOME C/O SHORTNESS OF BREATH FOR A COUPLE OF DAYS PT WITH COPD AND IS O2 DEPENDENT AT 4L/NC STATES SHE USED NEBULIZER JUST PRIOR TO ARRIVAL WITHOUT IMPROVEMENT NO CHEST PAIN NO COUGH NO FEVER HAS HAD SIGNIFICANT SWELLING TO LEGS/ FEET FOR THE LAST 2-3 DAYS--PT STATES SHE HAS ALSO HAD CHF PT C/O HURTING ALL OVER PT ADMITTED 09/11-09/17 FOR COPD EXACERBATION WAS ALSO ADMITTED 07/30-08/05/16 FOR SAME PT HAS HAD MULTIPLE VISITS/ ADMITS FOR THIS PROBLEM PCP: DR. HAYES Allergies and Home Medications Allergies Coded Allergies: enalapril (Verified Allergy, Severe, ANAPHYLAXIS, 08/22/13) Home Medications Amlodipine Besylate 10 Mg Tablet 10 MG PO HS (Reported) Atorvastatin Calcium 10 Mg Tablet 10 MG PO HS (Reported) Budesonide/Formoterol Fumarate 10.2 Gm Hfa.aer.ad 2 PUFF IH BID (Reported) Furosemide 40 Mg Tablet 40 MG PO DAILY (Reported) Gabapentin 300 Mg Capsule 300 MG PO HS (Reported) Glimepiride 4 Mg Tablet 8 MG PO DAILY (Reported) TAKES 2 (4 MG) TABLETS Hydrocodone/Acetaminophen 1 Each Tablet 1 TAB PO QID PRN PRN PAIN (Reported) Insulin Aspart 300 Units/3 Ml Solution SQ SLIDING/SCALE PRN PRN BS ABOVE 200 ( Reported) Insulin Detemir 100 Unit/1 Ml Insuln.pen 25 UNIT SQ DAILY@1000 (Reported) Metformin HCl 500 Mg Tablet 1,000 MG PO BID (Reported) TAKES 2 (500MG) TABLETS Multivit-Min/FA/Lycopene/Lut 1 Each Tablet 1 TAB PO DAILY (Reported) Naproxen 500 Mg Tablet 500 MG PO BID (Reported) [place]-3/Dha/Epa/Fish Oil 1 Each Capsule 1,000 MG PO DAILY (Reported) Potassium Chloride 10 Meq Capsule.er 10 MEQ PO HS (Reported) Pramipexole Di-HCl 1 Mg Tablet 1 MG PO HS (Reported) Sertraline HCl 50 Mg Tablet 50 MG PO HS (Reported) Tiotropium [place] 4 Gm Mist.inhal 2 PUFF IH DAILY (Reported) Constitutional: no symptoms reportedNo chills, No fever EENTM: no symptoms reported Respiratory: see HPINo cough, dyspnea on exertionNo orthopnea, short of breathNo wheezing Cardiovascular: see HPINo chest pain, edemaNo palpitations, No syncope, No vascular heart diseas Gastrointestinal: no symptoms reportedNo abdominal pain, No nausea, No vomiting Genitourinary: no symptoms reported Musculoskeletal: see HPI (LEG SWELLING ) Skin: no symptoms reported Psychiatric/Neurological: No Symptoms Reported Endocrine: No Symptoms Reported Hematologic/Lymphatic: No Symptoms Reported Past Qpvcxco-Gqswlt-Vfctvo Hx Patient Social History Alcohol Use: Denies Use Recreational Drug Use: No Smoking Status: Current Everyday Smoker (1 PPD) Type Used: Cigarettes Recent Foreign Travel: No Contact w/Someone Who Travel: No Recent Hopitalizations: Yes Immunizations Up To Date Tetanus Booster (TDap): More than 5yrs PED Vaccines UTD: No Date of Pneumonia Vaccine: May 21, 2013 Date of Influenza Vaccine: Jun 08, 2016 Seasonal Allergies Seasonal Allergies: Yes Surgeries HX Surgeries: Yes (RIGHT TOTAL HIP REPLACEMENT WITH REVISION FOR RECURRENT DISLOCATIONS; BILAT CARPAL TUNNEL; EGD'S/COLONOSCOPIES/POLYPECTOMIES; LEFT KNEE SX, RIGHT ANKLE) Surgeries: Gallbladder, Orthopedic Respiratory Hx Respiratory Disorders: Yes Respiratory Disorders: Asthma, Pneumonia, Chronic Bronchitis, COPD Cardiovascular Hx Cardiac Disorders: Yes (CHF) Cardiac Disorders: Chronic Edema/Swelling, Hypertension Neurological Hx Neurological Disorders: No 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 System Hx 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 Disorders: No Sexually Transmitted Disease: Yes (age of 16) HIV/AIDS: No Female 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 Disorders: Denies 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 Genitourinary Hx Genitourinary Disorders: No Gastrointestinal Hx Gastrointestinal Disorders: Yes Gastrointestinal Disorders: Gastroesophageal Reflux, Chronic Constipation, Diverticulosis, Hemorrhoids, Polyps, Hiatal Hernia, Gall Bladder Disease Musculoskeletal Hx Musculoskeletal Disorders: Yes (CHRONIC GENERALIZED PAIN; RESTLESS LEG SYNDROME) Musculoskeletal Disorders: Degenerate Disk Disease, Arthritis, Chronic Back Pain Endocrine Hx Endocrine Disorders: Yes Endocrine Disorders: Diabetes, Insulin dep HEENT HX ENT Disorders: Yes (WEARS GLASSES) HEENT Disorders: Cataract Loss of Vision: Denies Hearing Impairment: Denies Cancer Hx Cancer: No Psychosocial Hx Psychiatric Problems: Yes Behavioral Health Disorders: Sleep Difficulties, Anxiety, Depression Integumentary HX Skin/Integumentary Disorder: No Blood Transfusions Hx Blood Disorders: No Family Medical History Family Medial History: Completed stroke 09 BROTHER Family history: Asthma 03 MOTHER History of - respiratory disease 03 FATHER (PNEUMONIA) 03 MOTHER (ASTHMA, COPD) Physical Exam Vital Signs Vital Sign - Last 12Hours Capillary Refill : General Appearance: WD/WN Anxious Mild Distress (DYSPNEIC) Other (MOANING CONSTANTLY, BUT ABLE TO TALK IN FULL SENTENCES AT LENGTH) HEENT: PERRL/EOMI Neck: Full Range of Motion Normal Inspection Non Tender SuppleNo Carotid Bruit , No JVD Respiratory: Decreased Breath Sounds (DIMINSHED BREATH SOUNDS IN ALL LUNG DIOP)No Rales, No Rhonci, No Wheezing Cardiovascular: Regular Rate, Rhythm No JVD No Murmur Gastrointestinal: Non Tender Soft Extremity: Normal Capillary Refill Normal Range of Motion Pedal Edema (3+ EDEMA BILATERALLY--DIFFUSE TENDERNESS TO BOTH LEGS. 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 Norm as Tested Other (ANXIOUS, MOANING) Skin: Normal Color Warm/Dry Progress/Results/Core Measures Results/Orders Lab Results Laboratory Tests Test 09/29/16 22:57 09/29/16 23:00 Range/Units [place] Test YES-POS Arterial Blood Base Excess 4.4 H -2.5-2.5 MMOL/L Arterial Blood HCO3 30 H 23-27 MMOL/L Arterial Blood Oxygen Saturation 97 94-100 % Arterial Blood Partial Pressure CO2 51 H 35-45 MMHG Arterial Blood Partial Pressure O2 83 79-93 MMHG Arterial Blood Total CO2 31.7 H 21.0-31.0 MMOL/L Arterial Blood pH 7.39 7.37-7.43 Blood Gas Inspired Oxygen 4L Blood Gas Patient Temperature 98.6 Blood Gas Puncture Site R RAD Blood Gas Ventilator Setting NO Activated Partial Thromboplast Time 28 24-35 SEC Alanine Aminotransferase (ALT/SGPT) 18 0-55 U/L Albumin 3.9 3.2-4.5 G/DL Alkaline Phosphatase 108 40-136 U/L Amylase Level 16 L 25-125 U/L Anion Gap 12 5-14 MMOL/L Aspartate Amino Transf (AST/SGOT) 11 5-34 U/L B-Type Natriuretic Peptide 35.9 <100.0 PG/ML BUN/Creatinine Ratio 21 Basophils # (Auto) 0.0 0.0-0.1 10^3/uL Basophils (%) (Auto) 0 0-10 % Blood Urea Nitrogen 15 7-18 MG/DL Calcium Level 10.0 8.5-10.1 MG/DL Carbon Dioxide Level 29 21-32 MMOL/L Chloride Level 101 98-107 MMOL/L Creatine Kinase MB 1.9 <6.6 NG/ML Creatinine 0.71 0.60-1.30 MG/DL Eosinophils # (Auto) 0.1 0.0-0.3 10^3/uL Eosinophils (%) (Auto) 2 0-10 % Estimat Glomerular Filtration Rate > 60 Glucose Level 142 H 70-105 MG/DL Hematocrit 35 35-52 % Hemoglobin 10.5 L 11.5-16.0 G/DL INR Comment 1.0 0.8-1.4 Lactic Acid Level 1.6 0.5-2.0 MMOL/L Lymphocytes # (Auto) 1.1 1.0-4.0 X 10^3 Lymphocytes (%) (Auto) 14 12-44 % Magnesium Level 1.8 1.8-2.4 MG/DL Mean Corpuscular Hemoglobin 27 25-34 PG Mean Corpuscular Hemoglobin Concent 30 L 32-36 G/DL Mean Corpuscular Volume 88 80-99 FL Mean Platelet Volume 10.7 H 7.4-10.4 FL Monocytes # (Auto) 0.6 0.0-1.0 X 10^3 Monocytes (%) (Auto) 8 0-12 % Neutrophils # (Auto) 5.8 1.8-7.8 X 10^3 Neutrophils (%) (Auto) 76 H 42-75 % Platelet Count 287 130-400 10^3/uL Potassium Level 4.0 3.6-5.0 MMOL/L Prothrombin Time 12.9 12.2-14.7 SEC Red Blood Count 3.93 L 4.35-5.85 10^6/uL Red Cell Distribution Width 14.5 10.0-14.5 % Sodium Level 142 135-145 MMOL/L Total Bilirubin 0.2 0.1-1.0 MG/DL Total Creatine Kinase 64 29-168 U/L Total Protein 6.7 6.4-8.2 G/DL Troponin I < 0.30 <0.30 NG/ML White Blood Count 7.7 4.3-11.0 10^3/uL Micro Results Microbiology 09/29/16 Influenza Types A,B Antigen (JANET) - Final, Complete My Orders Orders-SANDY YANG DO Saline Lock/Iv-Start (09/29/16 22:49) Ekg Tracing (09/29/16 22:49) O2 (09/29/16 22:49) Monitor-Rhythm Ecg Trace Only (09/29/16 22:49) Albuterol/Ipra Inhalation Soln (Duoneb I (09/29/16 23:00) Dexamethasone Injection (Decadron Inject (09/29/16 23:00) Rt Request For Service (09/29/16 22:57) Amylase (09/29/16 22:57) Arterial Blood Gas (09/29/16 22:57) BNP (09/29/16 22:57) Cbc With Automated Diff (09/29/16 22:57) Comprehensive Metabolic Panel (09/29/16 22:57) Creatine Kinase (09/29/16 22:57) Creatine Kinase Mb (09/29/16 22:57) Lactic Acid Analyzer (09/29/16 22:57) Magnesium (09/29/16 22:57) Protime With Inr (09/29/16 22:57) Partial Thromboplastin Time (09/29/16 22:57) Troponin I (09/29/16 22:57) Blood Culture (09/29/16 22:57) Influenza A And B Antigens (09/29/16 22:57) Svn Sm Volume Nebulizer Rt-Rfs (09/29/16 22:57) Svn Sm Volume Nebulizer Rt-Rfs (09/29/16 22:57) Dexamethasone Pf Injection (Decadron Pf (09/29/16 22:58) Albuterol/Ipra Inhalation Soln (Duoneb I (09/29/16 22:58) Chest 1 View, Ap/Pa Only (09/29/16 23:19) Furosemide Injection (Lasix Injection) (09/29/16 23:45) Albuterol/Ipra Inhalation Soln (Duoneb I (09/30/16 00:15) Svn Sm Volume Nebulizer Rt-Rfs (09/30/16 00:12) Ketorolac Injection (Toradol Injection) (09/30/16 00:15) Medications Given in ED Current Medications Medications Dose Ordered Sig/Fabienne Route Start Time Stop Time Status Last Admin Dose Admin Albuterol/ Ipratropium 3 ml ONCE ONCE INH 09/29/16 23:00 09/29/16 23:01 DC 09/29/16 23:11 3 ML Albuterol/ Ipratropium 3 ml ONCE ONCE INH 09/30/16 00:15 09/30/16 00:16 DC 09/30/16 00:26 3 ML Dexamethasone Sodium Phosphate 20 mg ONCE ONCE IH 09/29/16 23:00 09/29/16 23:01 DC 09/29/16 23:11 20 MG Furosemide 80 mg ONCE ONCE IVP 09/29/16 23:45 09/29/16 23:46 DC 09/30/16 00:11 80 MG Ketorolac Tromethamine 30 mg ONCE ONCE IVP 09/30/16 00:15 09/30/16 00:16 DC 09/30/16 00:21 30 MG Vital Signs/I&O Vital Sign - Last 12Hours 09/29/16 09/29/16 09/29/16 09/30/16 22:58 22:58 23:08 00:26 Temp 98.1 Pulse 96 Resp 24 B/P 132/74 Pulse Ox 94 94 95 94 O2 Delivery Nasal Cannula Nasal Cannula O2 Flow Rate 4 4 4 4 Progress Note : Progress Note MILD IMPROVEMENT IN DYSPNEA AND MILD INCREASED AERATION ,BUT RESPIRATIONS STILL LABORED. O2 SATS REMAIN IN UPPER 90'S ON 4L/NC NO DETERIORATION IN PT'S CONDITION DURING ER STAY ECG Initial ECG Impression Time: 22:58 Initial ECG Rate: 81 Initial ECG Rhythm: Normal Sinus Initial ECG Comparisson: Unchanged Diagnostic Imaging Comments CXR--MILD CHF, BIBASILAR ATELECTASIS--PENDING RADIOLOGIST REVIEW Reviewed: Reviewed by Me Departure Communication Progress Notes 0015--SPOKE WITH DR. JOSE--ACCEPTS PT FOR ADMIT Impression Impression: Primary Impression: COPD with acute exacerbation Additional Impressions: Edema MILD CHF Chronic generalized pain Disposition: ADMITTED INPATIENT Condition: Stable Decision to Admit Reason: Admit from ER (General) Decision to Admit/Date: Sep 30, 2016 Time/Decision to Admit Time: 00:15 Departure-Patient Inst. Referrals: RADHA HAYES DO (PCP/Family) Primary Care Physician SANDY YANG DO Sep 29, 2016 23:06
[2016-09-29 23:12] LABS: BASOPHILS % (AUTO) 0 % (0-10); EOSINOPHILS # (AUTO) 0.1 10^3/uL (0.0-0.3); EOSINOPHILS % (AUTO) 2 % (0-10); LYMPHOCYTES # (AUTO) 1.1 X 10^3 (1.0-4.0); LYMPHOCYTES % (AUTO) 14 % (12-44); MEAN CORPUSCULAR HEMOGLOBIN 27 PG (25-34); MEAN CORPUSCULAR HGB CONC 30 G/DL (32-36); MEAN CORPUSCULAR VOLUME 88 FL (80-99); MEAN PLATELET VOLUME 10.7 FL (7.4-10.4); MONOCYTES # (AUTO) 0.6 X 10^3 (0.0-1.0); MONOCYTES % (AUTO) 8 % (0-12); NEUTROPHILS # (AUTO) 5.8 X 10^3 (1.8-7.8); NEUTROPHILS % (AUTO) 76 % (42-75); PLATELET COUNT 287 10^3/uL (130-400); RED BLOOD COUNT 3.93 10^6/uL (4.35-5.85); RED CELL DISTRIBUTION WIDTH 14.5 % (10.0-14.5)
[2016-09-29 23:13] LABS: ABG BASE EXCESS 4.4 MMOL/L (-2.5-2.5); ABG HCO3 30 MMOL/L (23-27); ABG OXYGEN SATURATION 97 % (94-100); ABG PCO2 51 MMHG (35-45); ABG PH 7.39 (7.37-7.43); ABG PO2 83 MMHG (79-93); ABG TCO2 31.7 MMOL/L (21.0-31.0)
[2016-09-29 23:14] LABS: ALLENS TEST YES-POS; PATIENT TEMP 98.6
[2016-09-29 23:21] LABS: PROTHROMBIN TIME PATIENT 12.9 SEC (12.2-14.7)
[2016-09-29 23:30] LABS: ALANINE AMINOTRANSFERASE 18 U/L (0-55); ALBUMIN 3.9 G/DL (3.2-4.5); AMYLASE 16 U/L (25-125); ANION GAP 12 MMOL/L (5-14); ASPARTATE AMINO TRANSFERASE 11 U/L (5-34); BILIRUBIN,TOTAL 0.2 MG/DL (0.1-1.0); BLOOD UREA NITROGEN 15 MG/DL (7-18); BUN/CREATININE RATIO 21; CARBON DIOXIDE 29 MMOL/L (21-32); CHLORIDE 101 MMOL/L (98-107); CREATINE KINASE 64 U/L (29-168); CREATININE SERUM 0.71 MG/DL (0.60-1.30); GFR ESTIMATED > 60; GLUCOSE 142 MG/DL (70-105); MAGNESIUM 1.8 MG/DL (1.8-2.4); SODIUM 142 MMOL/L (135-145); TOTAL PROTEIN 6.7 G/DL (6.4-8.2)
[2016-09-29 23:37] LABS: TROPONIN I < 0.30 NG/ML (<0.30)
[2016-09-29 23:45] LABS: WHITE BLOOD COUNT 7.7 10^3/uL (4.3-11.0)
[2016-09-29] MEDS ORDERED: FUROSEMIDE 40 MG/4 ML INJ (LASIX) IVP ONE (23:45)
[2016-09-30] MEDS ORDERED: KETOROLAC 30 MG/ML VIAL IVP ONE (00:15)
[2016-09-30] MEDS ORDERED: RT-ALBUTEROL/IPRATROPIUM 3 ML (DUONEB) VIAL INH ONE (00:15)
[2016-09-30] MEDS ORDERED: RT-ALBUTEROL SULF 2.5 MG/3 ML PRE-MIX VIAL INH PRN (01:00)
[2016-09-30] MEDS ORDERED: CATHETER FLUSH 10 ML SYR IV PRN (02:15)
[2016-09-30] MEDS: RT-ALBUTEROL SULF 2.5 MG/3 ML PRE-MIX VIAL INH SCH ×6 (02:39→21:59)
[2016-09-30 04:00] VITALS: BP_SYST 134; BP_SYST 137; BP_DIAS 64; BP_DIAS 66
[2016-09-30 06:00] VITALS: BP_SYST 134; BP_SYST 137; BP_DIAS 60; BP_DIAS 66
[2016-09-30] MEDS ORDERED: FUROSEMIDE 40 MG/4 ML INJ (LASIX) IV ONE (06:00)
[2016-09-30] MEDS ORDERED: methylPREDNISolone 125 MG (Solu-MEDROL) VIAL IV SCH (06:00)
[2016-09-30] MEDS: CATHETER FLUSH 10 ML SYR IV SCH ×3 (06:24→21:52)
[2016-09-30] MEDS: RT-ADVAIR HFA 115/21 MCG PER PUFF IH SCH ×2 (06:41→19:00)
--- NOTE | 2016-09-30 07:52 | Diagnostic Imaging Report ---
INDICATION: Shortness of air. Study compared with exam 09/13/2016. FINDINGS: Air trapping and COPD chronic. No focal infiltrate, effusion, pneumothorax or overt failure pattern. IMPRESSION: Air trapping chronic. No acute finding superimposed. Dictated by: Dictated on workstation # [id number]
--- NOTE | 2016-09-30 07:58 | History & Physicial ---
History of Present Illness History of Present Illness Reason for visit/HPI patient came to the emergency room by private car area Patient was short of breath area Patient states when she walked she was short of breath. Surgeries. Right ankle, right hip, left knee, and gallbladder. Family history mother asthma. Denies TB diabetes heart disease lung disease cancer head dizziness.. EENT denies diplopia tinnitus or throat. Patient admits to swelling of legs. COPD with acute exacerbation Date of Admission Sep 30, 2016 at 00:33 I consulted on this patient on 09/30/16 07:53 Attending Physician Sina Hayes DO Admitting Physician Sina Hayes DO Consult Allergies and Home Medications Allergies Coded Allergies: enalapril (Verified Allergy, Severe, ANAPHYLAXIS, 08/22/13) Home Medications Amlodipine Besylate 10 Mg Tablet 10 MG PO HS (Reported) Atorvastatin Calcium 10 Mg Tablet 10 MG PO HS (Reported) Budesonide/Formoterol Fumarate 10.2 Gm Hfa.aer.ad 2 PUFF IH BID (Reported) Furosemide 40 Mg Tablet 40 MG PO DAILY (Reported) Gabapentin 300 Mg Capsule 300 MG PO HS (Reported) Glimepiride 4 Mg Tablet 8 MG PO DAILY (Reported) TAKES 2 (4 MG) TABLETS Hydrocodone/Acetaminophen 1 Each Tablet 1 TAB PO QID PRN PRN PAIN (Reported) Insulin Aspart 300 Units/3 Ml Solution SQ SLIDING/SCALE PRN PRN BS ABOVE 200 ( Reported) Insulin Detemir 100 Unit/1 Ml Insuln.pen 25 UNIT SQ DAILY@1000 (Reported) Metformin HCl 500 Mg Tablet 1,000 MG PO BID (Reported) TAKES 2 (500MG) TABLETS Multivit-Min/FA/Lycopene/Lut 1 Each Tablet 1 TAB PO DAILY (Reported) Naproxen 500 Mg Tablet 500 MG PO BID (Reported) [place]-3/Dha/Epa/Fish Oil 1 Each Capsule 1,000 MG PO DAILY (Reported) Potassium Chloride 10 Meq Capsule.er 10 MEQ PO HS (Reported) Pramipexole Di-HCl 1 Mg Tablet 1 MG PO HS (Reported) Sertraline HCl 50 Mg Tablet 50 MG PO HS (Reported) Tiotropium [place] 4 Gm Mist.inhal 2 PUFF IH DAILY (Reported) Past [place]-Aokzfb-Juhzgb Hx Patient Social History Marrital Status: Employed/Student: unemployed Alcohol Use: Denies Use Recreational Drug Use: No Smoking Status: Current Everyday Smoker (1 PPD) Type Used: Cigarettes Physical Abuse Screen: No Sexual Abuse: No Recent Foreign Travel: No Contact w/other who traveled: No Recent Hopitalizations: Yes (copd/PNA) Recent Infectious Disease Expo: No Immunizations Up To Date Tetanus Booster (TDap): More than 5yrs Date of Pneumonia Vaccine: May 21, 2013 Date of Influenza Vaccine: Jun 08, 2016 Seasonal Allergies Seasonal Allergies: Yes Surgeries HX Surgeries: Yes (RIGHT TOTAL HIP REPLACEMENT WITH REVISION FOR RECURRENT DISLOCATIONS; BILAT CARPAL TUNNEL; EGD'S/COLONOSCOPIES/POLYPECTOMIES; LEFT KNEE SX, RIGHT ANKLE) Surgeries: Gallbladder, Orthopedic Respiratory Hx Respiratory Disorders: Yes Respiratory Disorders: COPD Cardiovascular Hx Cardiovascular Disorders: Yes (CHF) Cardiac Disorders: Chronic Edema/Swelling, Hypertension Neurological Hx Neurological Disorders: No 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 System : No Hx 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 Disorders: No Sexually Transmitted Disease: No HIV/AIDS: No Female 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 Disorders: Denies Genitourinary Hx Genitourinary Disorders: No Gastrointestinal Hx Gastrointestinal Disorders: Yes Gastrointestinal Disorders: Gastroesophageal Reflux, Chronic Constipation, Diverticulosis, Hemorrhoids, Polyps, Hiatal Hernia, Gall Bladder Disease Musculoskeletal Hx Musculoskeletal Disorders: Yes (CHRONIC GENERALIZED PAIN; RESTLESS LEG SYNDROME) Musculoskeletal Disorders: Degenerate Disk Disease, Arthritis, Chronic Back Pain Endocrine Hx Endocrine Disorders: Yes Endocrine Disorders: Diabetes, Insulin dep HEENT HX ENT Disorders: Yes (WEARS GLASSES) HEENT Disorders: Cataract Loss of Vision: Denies Hearing Impairment: Denies Cancer Hx Cancer: No Psychosocial Hx Psychiatric Problems: Yes Behavioral Health Disorders: Sleep Difficulties, Anxiety, Depression Integumentary HX Skin/Integumentary Disorder: No Blood Transfusions Hx Blood Disorders: No Family Medical History Family Hx: Completed stroke 09 BROTHER Family history: Asthma 03 MOTHER History of - respiratory disease 03 FATHER (PNEUMONIA) 03 MOTHER (ASTHMA, COPD) Constitutional: weakness EENTM: no symptoms reported Respiratory: dyspnea on exertion short of breath Cardiovascular: no symptoms reported Gastrointestinal: no symptoms reported Genitourinary: no symptoms reported : No Physical Exam Vital Signs Vital Sign - Last 12Hours Capillary Refill : Less Than 3 Seconds General Appearance: WD/WN Eyes: Bilateral Eye Normal Inspection HEENT: Normal ENT Inspection Neck: Normal Inspection Respiratory: Chest Non Tender Decreased Breath Sounds Cardiovascular: Regular Rate, Rhythm No Murmur Gastrointestinal: Non Tender Soft Assessment/Plan Assessment and Plan COPD with acute exacerbation. Diabetic Clinical Quality Measures DVT/VTE Risk/Contraindication: Risk Factor Score Per Nursin RFS Level Per Nursing on Admit: 4+=Very High SINA HAYES DO Sep 30, 2016 07:58
[2016-09-30 08:00] VITALS: BP 129/80
[2016-09-30] MEDS: ENOXAPARIN 40 MG/0.4 ML (LOVENOX) SYR SC SCH (08:50)
[2016-09-30] MEDS: KETOROLAC 30 MG/ML VIAL IV PRN ×2 (08:50→20:59)
[2016-09-30] MEDS: UMECLIDINIUM BROMIDE (INCRUSE ELLIPTA) 7'S IH SCH (10:14)
[2016-09-30] MEDS ORDERED: ALBU2.5V4 NEB (10:59)
[2016-09-30] MEDS ORDERED: NON-FORMULARY MEDICATION 1 EA EA (Insulin Detemir (Levemir Flextouch) 25 UNIT) SQ SCH (11:45)
[2016-09-30] MEDS: HYDROcodone/APAP 10 MG/325 MG (LORTAB) TAB PO PRN ×2 (11:56→17:31)
[2016-09-30] MEDS: GLIMEPIRIDE 4 MG (AMARYL) TAB PO SCH (11:56)
[2016-09-30] MEDS: inSUlin ASPART (NovoLOG) 1 UNIT/0.01 ML (CHARGE PER UNIT) SC SCH ×3 (11:57→21:52)
[2016-09-30] MEDS: inSUlin DETERMIR 1 UNIT/0.01 ML (LEVEMIR) CHARGE PER UNIT SQ SCH (11:57)
[2016-09-30 12:00] VITALS: BP 153/86
[2016-09-30] MEDS: methylPREDNISolone 40 MG/ML (Solu-MEDROL) VIAL IV SCH ×2 (14:48→21:52)
[2016-09-30] MEDS ORDERED: inSUlin ASPART (NovoLOG) 1 UNIT/0.01 ML (CHARGE PER UNIT) SC SCH (16:00)
[2016-09-30 16:20] VITALS: BP 126/79
[2016-09-30] MEDS ORDERED: inSUlin ASPART (NovoLOG) 1 UNIT/0.01 ML (CHARGE PER UNIT) SC ONE (17:00)
[2016-09-30 19:30] VITALS: BP 150/79
[2016-09-30] MEDS ORDERED: ATORVASTATIN 10 MG (LIPITOR) TABLET PO SCH (21:00)
[2016-09-30] MEDS ORDERED: RT-SYMBICORT 160/4.5 MCG INHALER PER PUFF IH SCH (21:00)
[2016-09-30] MEDS ORDERED: NON-FORMULARY MEDICATION 1 EA EA (Naproxen 500 MG) PO SCH (21:00)
[2016-09-30] MEDS: GABAPENTIN 300 MG (NEURONTIN) CAP PO SCH (21:52)
[2016-09-30] MEDS: PRAMIPEXOLE 0.5 MG TAB (MIRAPEX) PO SCH (21:52)
[2016-09-30] MEDS: metFORMIN 500 MG (GLUCOPHAGE) TAB PO SCH (21:52)
[2016-09-30] MEDS: KCL 10 MEQ TAB (MICRO K) PO SCH (21:52)
[2016-09-30] MEDS: SERTRALINE 50 MG (ZOLOFT) TABLET PO SCH (21:52)
[2016-10-01 00:59] VITALS: BP 147/83
[2016-10-01] MEDS: RT-ALBUTEROL SULF 2.5 MG/3 ML PRE-MIX VIAL INH SCH ×6 (02:11→22:30)
[2016-10-01 03:20] VITALS: BP_SYST 148; BP_SYST 97; BP_DIAS 62; BP_DIAS 81
[2016-10-01] MEDS: HYDROcodone/APAP 10 MG/325 MG (LORTAB) TAB PO PRN ×4 (04:30→23:49)
[2016-10-01] MEDS: inSUlin ASPART (NovoLOG) 1 UNIT/0.01 ML (CHARGE PER UNIT) SC SCH ×4 (05:52→21:07)
[2016-10-01] MEDS: CATHETER FLUSH 10 ML SYR IV SCH ×3 (05:52→21:09)
[2016-10-01] MEDS: methylPREDNISolone 40 MG/ML (Solu-MEDROL) VIAL IV SCH ×3 (05:52→21:09)
[2016-10-01 06:22] LABS: BASOPHILS % (AUTO) 0 % (0-10); EOSINOPHILS % (AUTO) 0 % (0-10); LYMPHOCYTES # (AUTO) 0.8 X 10^3 (1.0-4.0); LYMPHOCYTES % (AUTO) 6 % (12-44); MEAN CORPUSCULAR HEMOGLOBIN 27 PG (25-34); MEAN CORPUSCULAR HGB CONC 31 G/DL (32-36); MEAN CORPUSCULAR VOLUME 85 FL (80-99); MEAN PLATELET VOLUME 10.9 FL (7.4-10.4); MONOCYTES # (AUTO) 0.3 X 10^3 (0.0-1.0); MONOCYTES % (AUTO) 2 % (0-12); NEUTROPHILS # (AUTO) 12.3 X 10^3 (1.8-7.8); NEUTROPHILS % (AUTO) 92 % (42-75); PLATELET COUNT 321 10^3/uL (130-400); RED BLOOD COUNT 3.77 10^6/uL (4.35-5.85); RED CELL DISTRIBUTION WIDTH 14.7 % (10.0-14.5); WHITE BLOOD COUNT 13.3 10^3/uL (4.3-11.0)
[2016-10-01] MEDS: RT-ADVAIR HFA 115/21 MCG PER PUFF IH SCH ×2 (06:29→18:56)
[2016-10-01] MEDS: UMECLIDINIUM BROMIDE (INCRUSE ELLIPTA) 7'S IH SCH (06:30)
[2016-10-01 06:46] LABS: ALANINE AMINOTRANSFERASE 18 U/L (0-55); ALBUMIN 3.9 G/DL (3.2-4.5); ANION GAP 10 MMOL/L (5-14); ASPARTATE AMINO TRANSFERASE 9 U/L (5-34); BILIRUBIN,TOTAL 0.2 MG/DL (0.1-1.0); BLOOD UREA NITROGEN 26 MG/DL (7-18); BUN/CREATININE RATIO 30; CALCIUM 9.5 MG/DL (8.5-10.1); CARBON DIOXIDE 28 MMOL/L (21-32); CHLORIDE 96 MMOL/L (98-107); CREATININE SERUM 0.88 MG/DL (0.60-1.30); GFR ESTIMATED > 60; GLUCOSE 380 MG/DL (70-105); POTASSIUM 4.6 MMOL/L (3.6-5.0); SODIUM 134 MMOL/L (135-145); TOTAL PROTEIN 6.4 G/DL (6.4-8.2)
[2016-10-01 07:09] LABS: ANISOCYTOSIS SLIGHT; BAND NEUTROPHILS 2 %; BASOPHILS % (MANUAL) 0 %; EOSINOPHILS % (MANUAL) 0 %; LYMPHOCYTES % (MANUAL) 4 %; NEUTROPHILS % (MANUAL) 93 %
[2016-10-01 07:10] LABS: HYPOCHROMASIA SLIGHT
--- NOTE | 2016-10-01 07:53 | Progress Note (SOAP) ---
Subjective Subjective/Events-last exam patient states she was up all night last night. Patient states she had some difficulty in breathing. Sugars elevated due to Solu-Medrol. White blood cell count elevated due to Solu-Medrol. Chest x-ray does not show pneumonia. Objective Exam Vital Signs Date Time Temp Pulse Resp B/P Pulse Ox O2 Delivery O2 Flow Rate FiO2 10/01/16 07:00 89 10/01/16 06:28 96 4.00 10/01/16 03:20 97.7 96 18 148/81 95 Nasal Cannula 4.00 10/01/16 02:11 95 4.00 10/01/16 01:00 86 10/01/16 00:59 98.3 100 18 147/83 98 Nasal Cannula 4.00 4.00 09/30/16 21:59 96 4.00 09/30/16 21:00 Nasal Cannula 4.00 09/30/16 19:30 97.5 104 16 150/79 95 Nasal Cannula 4.00 09/30/16 19:00 96 4.00 09/30/16 19:00 99 09/30/16 17:32 96.9 09/30/16 16:20 96.9 89 18 126/79 95 Nasal Cannula 4.00 09/30/16 15:21 96 4.00 09/30/16 13:00 89 09/30/16 12:00 96.6 100 20 153/86 92 Nasal Cannula 4.00 09/30/16 11:57 96.0 09/30/16 11:57 96.0 09/30/16 10:08 94 4.00 09/30/16 09:00 Nasal Cannula 4.00 09/30/16 08:50 96.0 09/30/16 08:37 90 09/30/16 08:00 96.1 63 18 129/80 97 Nasal Cannula 4.00 I & O 10/01/16 07:00 Intake Total 3535 ml Output Total 3900 ml Balance -365 ml Capillary Refill : Less Than 3 Seconds General Appearance: No Apparent Distress WD/WN HEENT: Normal ENT Inspection Neck: Normal Inspection Respiratory: No Accessory Muscle Use No Respiratory Distress Decreased Breath Sounds Cardiovascular: Regular Rate, Rhythm No Murmur Gastrointestinal: non tender soft Results Lab Laboratory Tests 09/30/16 16:33: Glucometer 429*H 09/30/16 21:13: Glucometer 459*H 10/01/16 05:45: Glucometer 372H 10/01/16 06:07: Alanine Aminotransferase (ALT/SGPT) 18, Albumin 3.9, Alkaline Phosphatase 90, Anion Gap 10, Anisocytosis SLIGHT, Aspartate Amino Transf (AST/SGOT) 9, BUN/ Creatinine Ratio 30, Band Neutrophils 2, Basophils # (Auto) 0.0, Basophils % ( Manual) 0, Basophils (%) (Auto) 0, Blood Urea Nitrogen 26H, Calcium Level 9.5, Carbon Dioxide Level 28, Chloride Level 96L, Creatinine 0.88, Eosinophils # ( Auto) 0.0, Eosinophils % (Manual) 0, Eosinophils (%) (Auto) 0, Estimat Glomerular Filtration Rate > 60, Glucose Level 380H, Hematocrit 32L, Hemoglobin 10.1L, Hypochromasia SLIGHT, Lymphocytes # (Auto) 0.8L, Lymphocytes % (Manual) 4 , Lymphocytes (%) (Auto) 6L, Mean Corpuscular Hemoglobin 27, Mean Corpuscular Hemoglobin Concent 31L, Mean Corpuscular Volume 85, Mean Platelet Volume 10.9H, Monocytes # (Auto) 0.3, Monocytes % (Manual) 1, Monocytes (%) (Auto) 2, Neutrophils # (Auto) 12.3H, Neutrophils % (Manual) 93, Neutrophils (%) (Auto) 92H, Platelet Count 321, Potassium Level 4.6, Red Blood Count 3.77L, Red Cell Distribution Width 14.7H, Sodium Level 134L, Total Bilirubin 0.2, Total Protein 6.4, White Blood Count 13.3H Microbiology 09/29/16 Blood Culture - Preliminary, Resulted No growth 09/29/16 Influenza Types A,B Antigen (JANET) - Final, Complete Assessment/Plan Assessment/Plan Assess & Plan/Chief Complaint COPD with acute exacerbation. Arthritis. Diabetes. Hypertension. Patient did not sleep last night. Patient admits to some shortness of breath Diagnosis/Problems: Clinical Quality Measures DVT/VTE Risk/Contraindication: Risk Factor Score Per Nursin RFS Level Per Nursing on Admit: 4+=Very High RADHA HAYES DO Oct 01, 2016 07:52
[2016-10-01 08:00] VITALS: BP 150/82
--- NOTE | 2016-10-01 08:44 | Diagnostic Imaging Report ---
INDICATION: Shortness of air. COMPARISON: 09/29/2016. FINDINGS: Air trapping and COPD are symmetric and chronic. The heart size is within normal limits. Some mild prominence of the central pulmonary arterial structures is unchanged. No pulmonary edema. No pneumonia, effusion, or pneumothorax. IMPRESSION: COPD, upper limits heart size, and prominence of the central pulmonary arterial structures are all unchanged from the prior exam. Dictated by: Dictated on workstation # [id number]
[2016-10-01] MEDS ORDERED: NON-FORMULARY MEDICATION 1 EA EA (Tiotropium Bromide (Spiriva Respimat) 2 PUFF) IH SCH (09:00)
[2016-10-01] MEDS ORDERED: GLIMEPIRIDE 4 MG (AMARYL) TAB PO SCH (09:00)
[2016-10-01] MEDS: metFORMIN 500 MG (GLUCOPHAGE) TAB PO SCH ×2 (09:24→21:07)
[2016-10-01] MEDS: ENOXAPARIN 40 MG/0.4 ML (LOVENOX) SYR SC SCH (09:25)
[2016-10-01] MEDS: KETOROLAC 30 MG/ML VIAL IV PRN ×2 (09:25→20:20)
[2016-10-01] MEDS: amLODIPine 5 MG (NORVASC) TAB PO SCH (09:25)
[2016-10-01] MEDS: FUROSEMIDE 40 MG (LASIX) TAB PO SCH (09:25)
[2016-10-01] MEDS: OMEGA 3 (FISH OIL) 1000 MG CAP PO SCH (09:25)
[2016-10-01] MEDS: GLIMEPIRIDE 4 MG (AMARYL) TAB PO SCH (09:25)
[2016-10-01] MEDS: inSUlin DETERMIR 1 UNIT/0.01 ML (LEVEMIR) CHARGE PER UNIT SQ SCH (11:44)
[2016-10-01] MEDS ORDERED: inSUlin ASPART (NovoLOG) 1 UNIT/0.01 ML (CHARGE PER UNIT) SC ONE (11:45)
[2016-10-01 12:00] VITALS: BP 144/73
[2016-10-01 15:40] VITALS: BP 144/63
[2016-10-01 19:45] VITALS: BP 137/70
[2016-10-01] MEDS: KCL 10 MEQ TAB (MICRO K) PO SCH (21:07)
[2016-10-01] MEDS: GABAPENTIN 300 MG (NEURONTIN) CAP PO SCH (21:07)
[2016-10-01] MEDS: SERTRALINE 50 MG (ZOLOFT) TABLET PO SCH (21:07)
[2016-10-01] MEDS: PRAMIPEXOLE 0.5 MG TAB (MIRAPEX) PO SCH (21:09)
[2016-10-02] VITALS: BP 140/68
[2016-10-02] MEDS: RT-ALBUTEROL SULF 2.5 MG/3 ML PRE-MIX VIAL INH SCH ×6 (02:21→22:44)
[2016-10-02 04:00] VITALS: BP 168/87
[2016-10-02] MEDS: HYDROcodone/APAP 10 MG/325 MG (LORTAB) TAB PO PRN ×3 (05:46→23:28)
[2016-10-02] MEDS: inSUlin ASPART (NovoLOG) 1 UNIT/0.01 ML (CHARGE PER UNIT) SC SCH ×4 (05:46→21:25)
[2016-10-02] MEDS: CATHETER FLUSH 10 ML SYR IV SCH ×3 (05:46→20:05)
[2016-10-02 06:20] LABS: BASOPHILS % (AUTO) 0 % (0-10); EOSINOPHILS % (AUTO) 0 % (0-10); LYMPHOCYTES # (AUTO) 1.4 X 10^3 (1.0-4.0); LYMPHOCYTES % (AUTO) 11 % (12-44); MEAN CORPUSCULAR HEMOGLOBIN 27 PG (25-34); MEAN CORPUSCULAR HGB CONC 31 G/DL (32-36); MEAN CORPUSCULAR VOLUME 87 FL (80-99); MEAN PLATELET VOLUME 10.8 FL (7.4-10.4); MONOCYTES # (AUTO) 0.6 X 10^3 (0.0-1.0); MONOCYTES % (AUTO) 5 % (0-12); NEUTROPHILS # (AUTO) 10.7 X 10^3 (1.8-7.8); NEUTROPHILS % (AUTO) 84 % (42-75); PLATELET COUNT 302 10^3/uL (130-400); RED BLOOD COUNT 3.57 10^6/uL (4.35-5.85); RED CELL DISTRIBUTION WIDTH 14.8 % (10.0-14.5); WHITE BLOOD COUNT 12.7 10^3/uL (4.3-11.0)
[2016-10-02 06:42] LABS: ALANINE AMINOTRANSFERASE 15 U/L (0-55); ALBUMIN 3.6 G/DL (3.2-4.5); ANION GAP 10 MMOL/L (5-14); ASPARTATE AMINO TRANSFERASE 8 U/L (5-34); BILIRUBIN,TOTAL 0.1 MG/DL (0.1-1.0); BLOOD UREA NITROGEN 33 MG/DL (7-18); BUN/CREATININE RATIO 38; CALCIUM 9.2 MG/DL (8.5-10.1); CARBON DIOXIDE 31 MMOL/L (21-32); CHLORIDE 99 MMOL/L (98-107); CREATININE SERUM 0.87 MG/DL (0.60-1.30); GFR ESTIMATED > 60; GLUCOSE 187 MG/DL (70-105); POTASSIUM 4.1 MMOL/L (3.6-5.0); SODIUM 140 MMOL/L (135-145)
[2016-10-02] MEDS: RT-ADVAIR HFA 115/21 MCG PER PUFF IH SCH ×2 (06:44→18:57)
[2016-10-02] MEDS: UMECLIDINIUM BROMIDE (INCRUSE ELLIPTA) 7'S IH SCH (06:44)
--- NOTE | 2016-10-02 07:44 | Progress Note (SOAP) ---
Subjective Subjective/Events-last exam COPD with acute exacerbation. Diabetes. Solu-Medrol course sugars to go up to 500. 2 DC the Solu-Medrol. Patient breathing better this morning. According to nurse patient short of breath when walks around Objective Exam Vital Signs Date Time Temp Pulse Resp B/P Pulse Ox O2 Delivery O2 Flow Rate FiO2 10/02/16 06:44 97 4.00 10/02/16 02:22 98 4.00 10/02/16 01:00 68 10/02/16 00:00 98.3 78 24 140/68 97 Nasal Cannula 4.00 10/01/16 21:00 Nasal Cannula 4.00 10/01/16 19:45 98.7 65 20 137/70 94 Nasal Cannula 4.00 10/01/16 19:00 90 10/01/16 18:56 98 4.00 10/01/16 16:33 98.4 10/01/16 15:40 99.0 92 20 144/63 93 Nasal Cannula 4.00 10/01/16 14:54 96 4.00 10/01/16 12:00 98.4 105 20 144/73 96 Nasal Cannula 4.00 10/01/16 11:44 97.7 10/01/16 11:44 97.7 10/01/16 10:06 94 4.00 10/01/16 09:25 97.7 10/01/16 09:00 Nasal Cannula 4.00 10/01/16 08:00 98.0 99 24 150/82 94 Nasal Cannula 4.00 I & O 10/02/16 07:00 Intake Total 2250 ml Output Total 3300 ml Balance -1050 ml Capillary Refill : Less Than 3 Seconds General Appearance: No Apparent Distress WD/WN HEENT: TMs Normal Neck: Full Range of Motion Normal Inspection Respiratory: Chest Non Tender Decreased Breath Sounds Cardiovascular: Regular Rate, Rhythm No Murmur Gastrointestinal: non tender soft Results Lab Laboratory Tests 10/02/16 05:45 Laboratory Tests 10/02/16 05:45 Laboratory Tests 10/01/16 11:12: Glucometer 446*H 10/01/16 16:27: Glucometer 393H 10/01/16 20:59: Glucometer 526*H 10/02/16 05:32: Glucometer 200H 10/02/16 05:45: Alanine Aminotransferase (ALT/SGPT) 15, Albumin 3.6, Alkaline Phosphatase 88, Anion Gap 10, Aspartate Amino Transf (AST/SGOT) 8, BUN/Creatinine Ratio 38, Basophils # (Auto) 0.0, Basophils (%) (Auto) 0, Blood Urea Nitrogen 33H, Calcium Level 9.2, Carbon Dioxide Level 31, Chloride Level 99, Creatinine 0.87, Eosinophils # (Auto) 0.0, Eosinophils (%) (Auto) 0, Estimat Glomerular Filtration Rate > 60, Glucose Level 187H, Hematocrit 31L, Hemoglobin 9.5L, Lymphocytes # (Auto) 1.4, Lymphocytes (%) (Auto) 11L, Mean Corpuscular Hemoglobin 27, Mean Corpuscular Hemoglobin Concent 31L, Mean Corpuscular Volume 87, Mean Platelet Volume 10.8H, Monocytes # (Auto) 0.6, Monocytes (%) (Auto) 5, Neutrophils # (Auto) 10.7H, Neutrophils (%) (Auto) 84H, Platelet Count 302, Potassium Level 4.1, Red Blood Count 3.57L, Red Cell Distribution Width 14.8H, Sodium Level 140, Total Bilirubin 0.1, Total Protein 6.0L, White Blood Count 12.7H Microbiology 09/29/16 Blood Culture - Preliminary, Resulted No growth 09/29/16 Influenza Types A,B Antigen (JANET) - Final, Complete Assessment/Plan Assessment/Plan Assess & Plan/Chief Complaint COPD with acute exacerbation. Arthritis. Diabetes. Hypertension. Patient did not sleep last night. Patient admits to some shortness of breath. . . Patient has COPD with acute exacerbation. Diabetes. Hypertension. Blood sugars over 500 with Solu-Medrol Diagnosis/Problems: Clinical Quality Measures DVT/VTE Risk/Contraindication: Risk Factor Score Per Nursin RFS Level Per Nursing on Admit: 4+=Very High RADHA HAYES DO Oct 02, 2016 07:44
[2016-10-02 08:00] VITALS: BP 172/80
[2016-10-02] MEDS: amLODIPine 5 MG (NORVASC) TAB PO SCH (09:34)
[2016-10-02] MEDS: ENOXAPARIN 40 MG/0.4 ML (LOVENOX) SYR SC SCH (09:34)
[2016-10-02] MEDS: OMEGA 3 (FISH OIL) 1000 MG CAP PO SCH (09:34)
[2016-10-02] MEDS: GLIMEPIRIDE 4 MG (AMARYL) TAB PO SCH (09:34)
[2016-10-02] MEDS: metFORMIN 500 MG (GLUCOPHAGE) TAB PO SCH ×2 (09:34→21:25)
[2016-10-02] MEDS: FUROSEMIDE 40 MG (LASIX) TAB PO SCH (09:34)
[2016-10-02] MEDS: KETOROLAC 30 MG/ML VIAL IV PRN ×2 (09:39→20:05)
[2016-10-02] MEDS: inSUlin DETERMIR 1 UNIT/0.01 ML (LEVEMIR) CHARGE PER UNIT SQ SCH (10:53)
[2016-10-02 12:00] VITALS: BP 153/75
--- NOTE | 2016-10-02 12:11 | Physician Query-General Query ---
Physician Query-General Query to Physician: The medical record reflects the following clinical scenario: History/Risk factors: CHF is documented in the H&P. Patient had significant swelling of legs and feet on admission. Clinical Findings: BNP-35.9 on admission. Treatment: Lasix 80mg IVP given on admission. Home medications include 40mg Lasix PO daily. Question: Can you further specify the type & acuity of the CHF per the clinical indicators above? Please document response in the Progress Notes or Discharge Summary. 1. Acuity: Acute, Chronic, Acute on Chronic 2. Type: Systolic, Diastolic, Systolic & Diastolic 3. CHF, acuity & type cannot be further specified 4. Other, with explanation of clinical findings 5. Clinically undetermined, no explanation for clinical findings Please remember a lack of response to the above will prompt a phone page by CDI/ coding staff. In responding to this query, please exercise your independent professional judgment. The purpose of this communication is to more accurately reflect the complexity of your patients condition. The fact that a question is asked does not imply that any particular answer is desired or expected. Thank you for your timely response to this clarification. PHYSICIAN RESPONSE: Based on the clinical findings in the record, please respond to the query above on this document as an addendum. Possible, probable, or questionable diagnosis can be coded for INPATIENTS ONLY. Physician Response: Physician Response patient on Norvasc which causes swelling of the legs No CHF If you have questions please contact: Cord Cutter: Katie See [facility],CCDS Ext:[phone] Thank you for your time and cooperation. 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
[2016-10-02 15:50] VITALS: BP 140/72
[2016-10-02 20:10] VITALS: BP 161/78
[2016-10-02] MEDS: PRAMIPEXOLE 0.5 MG TAB (MIRAPEX) PO SCH (21:25)
[2016-10-02] MEDS: KCL 10 MEQ TAB (MICRO K) PO SCH (21:25)
[2016-10-02] MEDS: SERTRALINE 50 MG (ZOLOFT) TABLET PO SCH (21:25)
[2016-10-02] MEDS: GABAPENTIN 300 MG (NEURONTIN) CAP PO SCH (21:25)
[2016-10-03] VITALS: BP 176/81
[2016-10-03] MEDS: RT-ALBUTEROL SULF 2.5 MG/3 ML PRE-MIX VIAL INH SCH ×2 (02:00→07:21)
[2016-10-03 04:00] VITALS: BP 183/97
[2016-10-03] MEDS: KETOROLAC 30 MG/ML VIAL IV PRN (04:38)
[2016-10-03] MEDS: CATHETER FLUSH 10 ML SYR IV SCH (04:38)
[2016-10-03] MEDS: inSUlin ASPART (NovoLOG) 1 UNIT/0.01 ML (CHARGE PER UNIT) SC SCH (06:41)
[2016-10-03] MEDS: HYDROcodone/APAP 10 MG/325 MG (LORTAB) TAB PO PRN (06:41)
[2016-10-03 07:14] LABS: BASOPHILS % (AUTO) 0 % (0-10); EOSINOPHILS # (AUTO) 0.1 10^3/uL (0.0-0.3); EOSINOPHILS % (AUTO) 1 % (0-10); LYMPHOCYTES # (AUTO) 1.7 X 10^3 (1.0-4.0); LYMPHOCYTES % (AUTO) 21 % (12-44); MEAN CORPUSCULAR HEMOGLOBIN 27 PG (25-34); MEAN CORPUSCULAR HGB CONC 30 G/DL (32-36); MEAN CORPUSCULAR VOLUME 89 FL (80-99); MEAN PLATELET VOLUME 10.9 FL (7.4-10.4); MONOCYTES # (AUTO) 0.5 X 10^3 (0.0-1.0); MONOCYTES % (AUTO) 6 % (0-12); NEUTROPHILS # (AUTO) 5.5 X 10^3 (1.8-7.8); NEUTROPHILS % (AUTO) 71 % (42-75); PLATELET COUNT 280 10^3/uL (130-400); RED BLOOD COUNT 3.48 10^6/uL (4.35-5.85); RED CELL DISTRIBUTION WIDTH 14.9 % (10.0-14.5); WHITE BLOOD COUNT 7.7 10^3/uL (4.3-11.0)
[2016-10-03] MEDS: RT-ADVAIR HFA 115/21 MCG PER PUFF IH SCH (07:21)
[2016-10-03] MEDS: UMECLIDINIUM BROMIDE (INCRUSE ELLIPTA) 7'S IH SCH (07:22)
[2016-10-03 07:43] LABS: ANION GAP 7 MMOL/L (5-14); BLOOD UREA NITROGEN 28 MG/DL (7-18); BUN/CREATININE RATIO 36; CARBON DIOXIDE 34 MMOL/L (21-32); CHLORIDE 101 MMOL/L (98-107); CREATININE SERUM 0.77 MG/DL (0.60-1.30); GFR ESTIMATED > 60; GLUCOSE 134 MG/DL (70-105); POTASSIUM 4.2 MMOL/L (3.6-5.0); SODIUM 142 MMOL/L (135-145)
--- NOTE | 2016-10-03 07:47 | Progress Note (SOAP) ---
Subjective Subjective/Events-last exam patient breathing better. Patient to be discharged today. Patient hypertensive. Increase amlodipine to 10 mg a day. 2 office next Friday Objective Exam Vital Signs Date Time Temp Pulse Resp B/P Pulse Ox O2 Delivery O2 Flow Rate FiO2 10/03/16 07:24 97 4.00 10/03/16 07:23 97 4.00 10/03/16 07:22 97 4.00 10/03/16 04:00 96.7 67 18 183/97 96 Nasal Cannula 4.00 10/03/16 01:00 74 10/03/16 00:00 98.2 73 18 176/81 96 Nasal Cannula 4.00 10/02/16 22:45 97 4.00 10/02/16 20:10 98.8 79 20 161/78 98 Nasal Cannula 4.00 10/02/16 20:00 Nasal Cannula 4.00 10/02/16 19:02 97 10/02/16 19:00 80 10/02/16 18:57 97 4.00 10/02/16 15:50 98.4 79 18 140/72 97 Nasal Cannula 4.00 10/02/16 14:24 97 4.00 10/02/16 12:00 98.6 74 18 153/75 96 Nasal Cannula 4.00 10/02/16 09:00 Nasal Cannula 4.00 10/02/16 08:00 97.8 106 24 172/80 94 Nasal Cannula 4.00 I & O 10/03/16 07:00 Intake Total 2620 ml Output Total 2800 ml Balance -180 ml Capillary Refill : Less Than 3 SecondsLess Than 3 Seconds General Appearance: No Apparent Distress WD/WN HEENT: Normal ENT Inspection Neck: Full Range of Motion Normal Inspection Respiratory: Chest Non Tender No Accessory Muscle Use No Respiratory Distress Decreased Breath Sounds Cardiovascular: Regular Rate, Rhythm No Murmur Gastrointestinal: non tender soft Results Lab Laboratory Tests 10/02/16 11:26: Glucometer 258H 10/02/16 15:56: Glucometer 219H 10/02/16 21:13: Glucometer 273H 10/03/16 05:51: Glucometer 150H 10/03/16 06:24: Anion Gap 7, BUN/Creatinine Ratio 36, Basophils # (Auto) 0.0, Basophils (%) ( Auto) 0, Blood Urea Nitrogen 28H, Calcium Level 9.0, Carbon Dioxide Level 34H, Chloride Level 101, Creatinine 0.77, Eosinophils # (Auto) 0.1, Eosinophils (%) ( Auto) 1, Estimat Glomerular Filtration Rate > 60, Glucose Level 134H, Hematocrit 31L, Hemoglobin 9.4L, Lymphocytes # (Auto) 1.7, Lymphocytes (%) (Auto ) 21, Mean Corpuscular Hemoglobin 27, Mean Corpuscular Hemoglobin Concent 30L, Mean Corpuscular Volume 89, Mean Platelet Volume 10.9H, Monocytes # (Auto) 0.5, Monocytes (%) (Auto) 6, Neutrophils # (Auto) 5.5, Neutrophils (%) (Auto) 71, Platelet Count 280, Potassium Level 4.2, Red Blood Count 3.48L, Red Cell Distribution Width 14.9H, Sodium Level 142, White Blood Count 7.7 Microbiology 09/29/16 Blood Culture - Preliminary, Resulted No growth 09/29/16 Influenza Types A,B Antigen (JANET) - Final, Complete Assessment/Plan Assessment/Plan Assess & Plan/Chief Complaint COPD with acute exacerbation. Arthritis. Diabetes. Hypertension. Patient did not sleep last night. Patient admits to some shortness of breath. . . Patient has COPD with acute exacerbation. Diabetes. Hypertension. Blood sugars over 500 with Solu-Medrol. . 10/03/16. COPD with acute exacerbation. Diabetes. Hypertension. Patient feeling better today. Patient to be discharged today. Diagnosis/Problems: Clinical Quality Measures DVT/VTE Risk/Contraindication: Risk Factor Score Per Nursin RFS Level Per Nursing on Admit: 4+=Very High RADHA HAYES DO Oct 03, 2016 07:47
[2016-10-03 08:00] VITALS: BP 147/70
[2016-10-03] MEDS: GLIMEPIRIDE 4 MG (AMARYL) TAB PO SCH (08:07)
[2016-10-03] MEDS: ENOXAPARIN 40 MG/0.4 ML (LOVENOX) SYR SC SCH (08:08)
[2016-10-03] MEDS: metFORMIN 500 MG (GLUCOPHAGE) TAB PO SCH (08:08)
[2016-10-03] MEDS: FUROSEMIDE 40 MG (LASIX) TAB PO SCH (08:08)
[2016-10-03] MEDS: OMEGA 3 (FISH OIL) 1000 MG CAP PO SCH (08:08)
[2016-10-03] MEDS ORDERED: amLODIPine 5 MG (NORVASC) TAB PO SCH (09:00)
--- NOTE | 2016-10-09 06:47 | Discharge Summary ---
Diagnosis/Chief Complaint Date of Admission Sep 30, 2016 at 00:33 Date of Discharge Oct 03, 2016 at 09:45 Discharge Date: Oct 03, 2016 Admission Diagnosis Admission Diagnosis COPD with acute exacerbation. Diabetic Discharge Diagnosis COPD with acute exacerbation. Hypertension heart disease. Type II diabetes mellitus. Unspecified asthma. Nicotine dependence. Restless leg syndromes. GERD Reason Hospital Visit patient came to the emergency room by private car area Patient was short of breath area Patient states when she walked she was short of breath. Surgeries. Right ankle, right hip, left knee, and gallbladder. Family history mother asthma. Denies TB diabetes heart disease lung disease cancer head dizziness.. EENT denies diplopia tinnitus or throat. Patient admits to swelling of legs. COPD with acute exacerbation Discharge Summary Discharge Physical Examination Allergies: Coded Allergies: enalapril (Verified Allergy, Severe, ANAPHYLAXIS, 08/22/13) Vitals & I&Os Vital Signs Date Time Temp Pulse Resp B/P Pulse Ox O2 Delivery O2 Flow Rate FiO2 10/03/16 08:26 Nasal Cannula 4.00 10/03/16 08:00 96.3 108 24 147/70 91 Hospital Course patient in hospital did better area Patient was discharged home Labs (last 24 hrs) Laboratory Tests 09/29/16 22:57: [place] Test YES-POS, Arterial Blood Base Excess 4.4H, Arterial Blood HCO3 30H, Arterial Blood Oxygen Saturation 97, Arterial Blood Partial Pressure CO2 51H, Arterial Blood Partial Pressure O2 83, Arterial Blood Total CO2 31.7H, Arterial Blood pH 7.39, Blood Gas Inspired Oxygen 4L, Blood Gas Patient Temperature 98.6 , Blood Gas Puncture Site R RAD, Blood Gas Ventilator Setting NO 09/29/16 23:00: Activated Partial Thromboplast Time 28, Alanine Aminotransferase (ALT/SGPT) 18, Albumin 3.9, Alkaline Phosphatase 108, Amylase Level 16L, Anion Gap 12, Aspartate Amino Transf (AST/SGOT) 11, B-Type Natriuretic Peptide 35.9, BUN/ Creatinine Ratio 21, Basophils # (Auto) 0.0, Basophils (%) (Auto) 0, Blood Urea Nitrogen 15, Calcium Level 10.0, Carbon Dioxide Level 29, Chloride Level 101, Creatine Kinase MB 1.9, Creatinine 0.71, Eosinophils # (Auto) 0.1, Eosinophils ( %) (Auto) 2, Estimat Glomerular Filtration Rate > 60, Glucose Level 142H, Hematocrit 35, Hemoglobin 10.5L, INR Comment 1.0, Lactic Acid Level 1.6, Lymphocytes # (Auto) 1.1, Lymphocytes (%) (Auto) 14, Magnesium Level 1.8, Mean Corpuscular Hemoglobin 27, Mean Corpuscular Hemoglobin Concent 30L, Mean Corpuscular Volume 88, Mean Platelet Volume 10.7H, Monocytes # (Auto) 0.6, Monocytes (%) (Auto) 8, Neutrophils # (Auto) 5.8, Neutrophils (%) (Auto) 76H, Platelet Count 287, Potassium Level 4.0, Prothrombin Time 12.9, Red Blood Count 3.93L, Red Cell Distribution Width 14.5, Sodium Level 142, Total Bilirubin 0.2, Total Creatine Kinase 64, Total Protein 6.7, Troponin I < 0.30, White Blood Count 7.7 09/30/16 11:03: Glucometer 433*H 09/30/16 16:33: Glucometer 429*H 09/30/16 21:13: Glucometer 459*H 10/01/16 05:45: Glucometer 372H 10/01/16 06:07: Alanine Aminotransferase (ALT/SGPT) 18, Albumin 3.9, Alkaline Phosphatase 90, Anion Gap 10, Anisocytosis SLIGHT, Aspartate Amino Transf (AST/SGOT) 9, BUN/ Creatinine Ratio 30, Band Neutrophils 2, Basophils # (Auto) 0.0, Basophils % ( Manual) 0, Basophils (%) (Auto) 0, Blood Urea Nitrogen 26H, Calcium Level 9.5, Carbon Dioxide Level 28, Chloride Level 96L, Creatinine 0.88, Eosinophils # ( Auto) 0.0, Eosinophils % (Manual) 0, Eosinophils (%) (Auto) 0, Estimat Glomerular Filtration Rate > 60, Glucose Level 380H, Hematocrit 32L, Hemoglobin 10.1L, Hypochromasia SLIGHT, Lymphocytes # (Auto) 0.8L, Lymphocytes % (Manual) 4 , Lymphocytes (%) (Auto) 6L, Mean Corpuscular Hemoglobin 27, Mean Corpuscular Hemoglobin Concent 31L, Mean Corpuscular Volume 85, Mean Platelet Volume 10.9H, Monocytes # (Auto) 0.3, Monocytes % (Manual) 1, Monocytes (%) (Auto) 2, Neutrophils # (Auto) 12.3H, Neutrophils % (Manual) 93, Neutrophils (%) (Auto) 92H, Platelet Count 321, Potassium Level 4.6, Red Blood Count 3.77L, Red Cell Distribution Width 14.7H, Sodium Level 134L, Total Bilirubin 0.2, Total Protein 6.4, White Blood Count 13.3H 10/01/16 11:12: Glucometer 446*H 10/01/16 16:27: Glucometer 393H 10/01/16 20:59: Glucometer 526*H 10/02/16 05:32: Glucometer 200H 10/02/16 05:45: Alanine Aminotransferase (ALT/SGPT) 15, Albumin 3.6, Alkaline Phosphatase 88, Anion Gap 10, Aspartate Amino Transf (AST/SGOT) 8, BUN/Creatinine Ratio 38, Basophils # (Auto) 0.0, Basophils (%) (Auto) 0, Blood Urea Nitrogen 33H, Calcium Level 9.2, Carbon Dioxide Level 31, Chloride Level 99, Creatinine 0.87, Eosinophils # (Auto) 0.0, Eosinophils (%) (Auto) 0, Estimat Glomerular Filtration Rate > 60, Glucose Level 187H, Hematocrit 31L, Hemoglobin 9.5L, Lymphocytes # (Auto) 1.4, Lymphocytes (%) (Auto) 11L, Mean Corpuscular Hemoglobin 27, Mean Corpuscular Hemoglobin Concent 31L, Mean Corpuscular Volume 87, Mean Platelet Volume 10.8H, Monocytes # (Auto) 0.6, Monocytes (%) (Auto) 5, Neutrophils # (Auto) 10.7H, Neutrophils (%) (Auto) 84H, Platelet Count 302, Potassium Level 4.1, Red Blood Count 3.57L, Red Cell Distribution Width 14.8H, Sodium Level 140, Total Bilirubin 0.1, Total Protein 6.0L, White Blood Count 12.7H 10/02/16 11:26: Glucometer 258H 10/02/16 15:56: Glucometer 219H 10/02/16 21:13: Glucometer 273H 10/03/16 05:51: Glucometer 150H 10/03/16 06:24: Anion Gap 7, BUN/Creatinine Ratio 36, Basophils # (Auto) 0.0, Basophils (%) ( Auto) 0, Blood Urea Nitrogen 28H, Calcium Level 9.0, Carbon Dioxide Level 34H, Chloride Level 101, Creatinine 0.77, Eosinophils # (Auto) 0.1, Eosinophils (%) ( Auto) 1, Estimat Glomerular Filtration Rate > 60, Glucose Level 134H, Hematocrit 31L, Hemoglobin 9.4L, Lymphocytes # (Auto) 1.7, Lymphocytes (%) (Auto ) 21, Mean Corpuscular Hemoglobin 27, Mean Corpuscular Hemoglobin Concent 30L, Mean Corpuscular Volume 89, Mean Platelet Volume 10.9H, Monocytes # (Auto) 0.5, Monocytes (%) (Auto) 6, Neutrophils # (Auto) 5.5, Neutrophils (%) (Auto) 71, Platelet Count 280, Potassium Level 4.2, Red Blood Count 3.48L, Red Cell Distribution Width 14.9H, Sodium Level 142, White Blood Count 7.7 Microbiology 09/29/16 Blood Culture - Final, Complete No growth 09/29/16 Influenza Types A,B Antigen (JANET) - Final, Complete Laboratory Tests 09/29/16 23:00 10/01/16 06:07 10/02/16 05:45 10/03/16 06:24 Pending Labs Microbiology Date/Time Source Procedure Growth Status 09/29/16 23:10 Peripheral Lt Ac Blood Culture - Final No growth Complete 09/29/16 23:00 Peripheral Rt Ac Blood Culture - Final No growth Complete 09/29/16 22:58 Nasopharynx Influenza Types A,B Antigen (JANET) - Final Complete Laboratory Tests 09/29/16 22:57: [place] Test YES-POS, Arterial Blood Base Excess 4.4, Arterial Blood HCO3 30, Arterial Blood Oxygen Saturation 97, Arterial Blood Partial Pressure CO2 51, Arterial Blood Partial Pressure O2 83, Arterial Blood Total CO2 31.7, Arterial Blood pH 7.39, Blood Gas Inspired Oxygen 4L, Blood Gas Patient Temperature 98.6 , Blood Gas Puncture Site R RAD, Blood Gas Ventilator Setting NO 09/29/16 23:00: Activated Partial Thromboplast Time 28, Alanine Aminotransferase (ALT/SGPT) 18, Albumin 3.9, Alkaline Phosphatase 108, Amylase Level 16, Anion Gap 12, Aspartate Amino Transf (AST/SGOT) 11, B-Type Natriuretic Peptide 35.9, BUN/ Creatinine Ratio 21, Basophils # (Auto) 0.0, Basophils (%) (Auto) 0, Blood Urea Nitrogen 15, Calcium Level 10.0, Carbon Dioxide Level 29, Chloride Level 101, Creatine Kinase MB 1.9, Creatinine 0.71, Eosinophils # (Auto) 0.1, Eosinophils ( %) (Auto) 2, Estimat Glomerular Filtration Rate > 60, Glucose Level 142, Hematocrit 35, Hemoglobin 10.5, INR Comment 1.0, Lactic Acid Level 1.6, Lymphocytes # (Auto) 1.1, Lymphocytes (%) (Auto) 14, Magnesium Level 1.8, Mean Corpuscular Hemoglobin 27, Mean Corpuscular Hemoglobin Concent 30, Mean Corpuscular Volume 88, Mean Platelet Volume 10.7, Monocytes # (Auto) 0.6, Monocytes (%) (Auto) 8, Neutrophils # (Auto) 5.8, Neutrophils (%) (Auto) 76, Platelet Count 287, Potassium Level 4.0, Prothrombin Time 12.9, Red Blood Count 3.93, Red Cell Distribution Width 14.5, Sodium Level 142, Total Bilirubin 0.2, Total Creatine Kinase 64, Total Protein 6.7, Troponin I < 0.30, White Blood Count 7.7 09/30/16 11:03: Glucometer 433 09/30/16 16:33: Glucometer 429 09/30/16 21:13: Glucometer 459 10/01/16 05:45: Glucometer 372 10/01/16 06:07: Alanine Aminotransferase (ALT/SGPT) 18, Albumin 3.9, Alkaline Phosphatase 90, Anion Gap 10, Anisocytosis SLIGHT, Aspartate Amino Transf (AST/SGOT) 9, BUN/ Creatinine Ratio 30, Band Neutrophils 2, Basophils # (Auto) 0.0, Basophils % ( Manual) 0, Basophils (%) (Auto) 0, Blood Urea Nitrogen 26, Calcium Level 9.5, Carbon Dioxide Level 28, Chloride Level 96, Creatinine 0.88, Eosinophils # (Auto ) 0.0, Eosinophils % (Manual) 0, Eosinophils (%) (Auto) 0, Estimat Glomerular Filtration Rate > 60, Glucose Level 380, Hematocrit 32, Hemoglobin 10.1, Hypochromasia SLIGHT, Lymphocytes # (Auto) 0.8, Lymphocytes % (Manual) 4, Lymphocytes (%) (Auto) 6, Mean Corpuscular Hemoglobin 27, Mean Corpuscular Hemoglobin Concent 31, Mean Corpuscular Volume 85, Mean Platelet Volume 10.9, Monocytes # (Auto) 0.3, Monocytes % (Manual) 1, Monocytes (%) (Auto) 2, Neutrophils # (Auto) 12.3, Neutrophils % (Manual) 93, Neutrophils (%) (Auto) 92 , Platelet Count 321, Potassium Level 4.6, Red Blood Count 3.77, Red Cell Distribution Width 14.7, Sodium Level 134, Total Bilirubin 0.2, Total Protein 6.4, White Blood Count 13.3 10/01/16 11:12: Glucometer 446 10/01/16 16:27: Glucometer 393 10/01/16 20:59: Glucometer 526 10/02/16 05:32: Glucometer 200 10/02/16 05:45: Alanine Aminotransferase (ALT/SGPT) 15, Albumin 3.6, Alkaline Phosphatase 88, Anion Gap 10, Aspartate Amino Transf (AST/SGOT) 8, BUN/Creatinine Ratio 38, Basophils # (Auto) 0.0, Basophils (%) (Auto) 0, Blood Urea Nitrogen 33, Calcium Level 9.2, Carbon Dioxide Level 31, Chloride Level 99, Creatinine 0.87, Eosinophils # (Auto) 0.0, Eosinophils (%) (Auto) 0, Estimat Glomerular Filtration Rate > 60, Glucose Level 187, Hematocrit 31, Hemoglobin 9.5, Lymphocytes # (Auto) 1.4, Lymphocytes (%) (Auto) 11, Mean Corpuscular Hemoglobin 27, Mean Corpuscular Hemoglobin Concent 31, Mean Corpuscular Volume 87, Mean Platelet Volume 10.8, Monocytes # (Auto) 0.6, Monocytes (%) (Auto) 5, Neutrophils # (Auto) 10.7, Neutrophils (%) (Auto) 84, Platelet Count 302, Potassium Level 4.1, Red Blood Count 3.57, Red Cell Distribution Width 14.8, Sodium Level 140, Total Bilirubin 0.1, Total Protein 6.0, White Blood Count 12.7 10/02/16 11:26: Glucometer 258 10/02/16 15:56: Glucometer 219 10/02/16 21:13: Glucometer 273 10/03/16 05:51: Glucometer 150 10/03/16 06:24: Anion Gap 7, BUN/Creatinine Ratio 36, Basophils # (Auto) 0.0, Basophils (%) ( Auto) 0, Blood Urea Nitrogen 28, Calcium Level 9.0, Carbon Dioxide Level 34, Chloride Level 101, Creatinine 0.77, Eosinophils # (Auto) 0.1, Eosinophils (%) ( Auto) 1, Estimat Glomerular Filtration Rate > 60, Glucose Level 134, Hematocrit 31, Hemoglobin 9.4, Lymphocytes # (Auto) 1.7, Lymphocytes (%) (Auto) 21, Mean Corpuscular Hemoglobin 27, Mean Corpuscular Hemoglobin Concent 30, Mean Corpuscular Volume 89, Mean Platelet Volume 10.9, Monocytes # (Auto) 0.5, Monocytes (%) (Auto) 6, Neutrophils # (Auto) 5.5, Neutrophils (%) (Auto) 71, Platelet Count 280, Potassium Level 4.2, Red Blood Count 3.48, Red Cell Distribution Width 14.9, Sodium Level 142, White Blood Count 7.7 Laboratory Tests 09/29/16 23:00 10/01/16 06:07 10/02/16 05:45 10/03/16 06:24 Radiology Reviewed chest x-ray ear trapping and COPD Discharge Home Medications: Active Scripts Active Reported Albuterol Sulfate 2.5 Mg/3 Ml Vial.neb 2.5 Mg NEB Q4H PRN Novolog Flexpen (Insulin Aspart) 300 Units/3 Ml Solution SQ AC PRN Levemir Flextouch (Insulin Detemir) 100 Unit/1 Ml Insuln.pen 25 Unit SQ 1030 Fish Oil 1,000 mg Softgel ([place]-3/Dha/Epa/Fish Oil) 1 Each Capsule 1,000 Mg PO DAILY Centrum Silver Tablet (Multivit-Min/FA/Lycopene/Lut) 1 Each Tablet 1 Tab PO DAILY Metformin HCl 500 Mg Tablet 1,000 Mg PO BID TAKES 2 (500MG) TABLETS Sertraline HCl 50 Mg Tablet 50 Mg PO HS Amlodipine Besylate 10 Mg Tablet 10 Mg PO HS Naproxen 500 Mg Tablet 500 Mg PO BID Furosemide 40 Mg Tablet 40 Mg PO DAILY Pramipexole Dihydrochloride (Pramipexole Di-HCl) 1 Mg Tablet 1 Mg PO HS Hydrocodon-Acetaminophn 10-325 (Hydrocodone/Acetaminophen) 1 Each Tablet 1 Tab PO QID PRN Glimepiride 4 Mg Tablet 8 Mg PO DAILY TAKES 2 (4 MG) TABLETS Spiriva Respimat (Tiotropium [place]) 4 Gm Mist.inhal 2 Puff IH DAILY Symbicort 160-4.5 Mcg Inhaler (Budesonide/Formoterol Fumarate) 10.2 Gm Hfa.aer.ad 2 Puff IH BID Potassium Chloride 10 Meq Capsule.er 10 Meq PO HS Gabapentin 300 Mg Capsule 300 Mg PO HS Atorvastatin Calcium 10 Mg Tablet 10 Mg PO HS Instructions to patient/family Please see electonic discharge instructions given to patient. Clinical Quality Measures DVT/VTE Risk/Contraindication: Risk Factor Score Per Nursin RFS Level Per Nursing on Admit: 4+=Very High RADHA HAYES DO Oct 09, 2016 06:47
== END 2016-10-03 09:45 | disposition home or self-care (01) | DRG 192 ==
LOC: EDUNIT# 22:24 → ER 22:25 → 4TH 09-30 00:33
PROVIDERS: ADMIT Family Medicine; ATTEND Family Medicine
DX: J44.1 Chronic obstructive pulmonary disease with (acute) exacerbation (principal); I11.9 Hypertensive heart disease without heart failure; R60.0 Localized edema; G47.9 Sleep disorder, unspecified; J45.909 Unspecified asthma, uncomplicated; F17.210 Nicotine dependence, cigarettes, uncomplicated; E11.65 Type 2 diabetes mellitus with hyperglycemia; T49.0X5A Adverse effect of local antifungal, anti-infective and anti-inflammatory drugs, initial encounter; F41.9 Anxiety disorder, unspecified; F32.9 Major depressive disorder, single episode, unspecified; G25.81 Restless legs syndrome; G89.29 Other chronic pain; M54.9 Dorsalgia, unspecified; K21.9 Gastro-esophageal reflux disease without esophagitis; Z79.4 Long term (current) use of insulin; M79.89 Other specified soft tissue disorders; T46.5X5A Adverse effect of other antihypertensive drugs, initial encounter
CPT/HCPCS: 36415; 71010; 71020; 80048; 80053; 82150; 82550; 82553; 82805; 82962; 83605; 83735; 83880; 84484; 85007; 85025; 85027; 85610; 85730; 87040; 87804; 93005; 93041; 94640; 94664; 94760; 96374; 96375

== ENCOUNTER 2016-11-28 17:54 | Observation (INO) | payer MEDICARE ==
[~2016-11-28] VITALS: Ht 175.3 cm; Wt 96.6 kg
[~2016-11-28 17:54] MED LIST changes: +ALBU2.5V4 NEB
[2016-11-28 19:07] LABS: BASOPHILS % (AUTO) 0 % (0-10); EOSINOPHILS # (AUTO) 0.1 10^3/uL (0.0-0.3); EOSINOPHILS % (AUTO) 1 % (0-10); LYMPHOCYTES # (AUTO) 1.5 X 10^3 (1.0-4.0); LYMPHOCYTES % (AUTO) 17 % (12-44); MEAN CORPUSCULAR HEMOGLOBIN 26 PG (25-34); MEAN CORPUSCULAR HGB CONC 31 G/DL (32-36); MEAN CORPUSCULAR VOLUME 85 FL (80-99); MEAN PLATELET VOLUME 11.6 FL (7.4-10.4); MONOCYTES # (AUTO) 0.6 X 10^3 (0.0-1.0); MONOCYTES % (AUTO) 7 % (0-12); NEUTROPHILS # (AUTO) 6.9 X 10^3 (1.8-7.8); NEUTROPHILS % (AUTO) 75 % (42-75); PLATELET COUNT 374 10^3/uL (130-400); RED BLOOD COUNT 4.11 10^6/uL (4.35-5.85); WHITE BLOOD COUNT 9.1 10^3/uL (4.3-11.0)
--- NOTE | 2016-11-28 19:09 | ED General ---
General Chief Complaint: Respiratory Problems Stated Complaint: DIFF BREATHING/BILAT LEG SWELLING Nursing Triage Note: pt reports soa worsening over the past 2 days. weakness et dizziness with any exertion. head congestion x 1 week. Nursing Sepsis Screen: No Definite Risk Source of Information: Patient, Old Records Exam Limitations: No Limitations History of Present Illness Time Seen by Provider: 18:45 Initial Comments This 65-year-old woman presents to the emergency room with shortness of air for about one week. She now appears to be in some mild respiratory distress with forced expiration and pursed lips. She has had mild dry cough the last few days. She denies fever. She has COPD and uses oxygen chronically per nasal cannula at 4 L/m. She quit smoking tobacco about 5 years ago. She does have a history of CHF and COPD with multiple admissions in the past. She uses diuretics at home and complains of increased lower extremity swelling recently. Allergies and Home Medications Allergies Coded Allergies: enalapril (Verified Allergy, Severe, ANAPHYLAXIS, 08/22/13) Home Medications Albuterol Sulfate 2.5 Mg/3 Ml Vial.neb, 2.5 MG NEB Q4H PRN for SHORTNESS OF BREATH, (Reported) Amlodipine Besylate 10 Mg Tablet, 10 MG PO HS, (Reported) Atorvastatin Calcium 10 Mg Tablet, 10 MG PO HS, (Reported) Budesonide/Formoterol Fumarate 10.2 Gm Hfa.aer.ad, 2 PUFF IH BID, (Reported) Furosemide 40 Mg Tablet, 40 MG PO DAILY, (Reported) Gabapentin 300 Mg Capsule, 300 MG PO HS, (Reported) Glimepiride 4 Mg Tablet, 8 MG PO DAILY, (Reported) TAKES 2 (4 MG) TABLETS Hydrocodone/Acetaminophen 1 Each Tablet, 1 TAB PO QID PRN for PAIN, (Reported) Insulin Aspart 300 Units/3 Ml Solution, SQ AC PRN for SLIDING SCALE BS ABOVE 200 , (Reported) Insulin Detemir 100 Unit/1 Ml Insuln.pen, 25 UNIT SQ 1030, (Reported) Metformin HCl 500 Mg Tablet, 1,000 MG PO BID, (Reported) TAKES 2 (500MG) TABLETS Multivit-Min/FA/Lycopene/Lut 1 Each Tablet, 1 TAB PO DAILY, (Reported) Naproxen 500 Mg Tablet, 500 MG PO BID, (Reported) [place]-3/Dha/Epa/Fish Oil 1 Each Capsule, 1,000 MG PO DAILY, (Reported) Potassium Chloride 10 Meq Capsule.er, 10 MEQ PO HS, (Reported) Pramipexole Di-HCl 1 Mg Tablet, 1 MG PO HS, (Reported) Sertraline HCl 50 Mg Tablet, 50 MG PO HS, (Reported) Tiotropium [place] 4 Gm Mist.inhal, 2 PUFF IH DAILY, (Reported) Constitutional: no symptoms reported EENTM: no symptoms reported Respiratory: see HPI Cardiovascular: see HPI Gastrointestinal: no symptoms reported Genitourinary: no symptoms reported Musculoskeletal: no symptoms reported Skin: no symptoms reported Psychiatric/Neurological: No Symptoms Reported Hematologic/Lymphatic: No Symptoms Reported Past Gsesibo-Waqrre-Awidmm Hx Patient Social History Type Used: Cigarettes Recent Foreign Travel: No Contact w/Someone Who Travel: No Recent Infectious Disease Expo: No Recent Hopitalizations: Yes (copd/PNA) Immunizations Up To Date Tetanus Booster (TDap): More than 5yrs PED Vaccines UTD: No Date of Pneumonia Vaccine: May 21, 2013 Date of Influenza Vaccine: Jun 08, 2016 Seasonal Allergies Seasonal Allergies: Yes Surgeries HX Surgeries: Yes Surgeries: Gallbladder, Joint Replacement (Hip), Orthopedic Respiratory Hx Respiratory Disorders: Yes Respiratory Disorders: Asthma, Pneumonia, Chronic Bronchitis, COPD (oxygen dependent at 2 L/m) Cardiovascular Hx Cardiac Disorders: Yes (CHF) Cardiac Disorders: Chronic Edema/Swelling, Hypertension Neurological Hx Neurological Disorders: No 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 System Hx 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 Disorders: No Sexually Transmitted Disease: No HIV/AIDS: No Female 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 Disorders: 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 Genitourinary Hx Genitourinary Disorders: No Gastrointestinal Hx Gastrointestinal Disorders: Yes Gastrointestinal Disorders: Gastroesophageal Reflux, Chronic Constipation, Diverticulosis, Hemorrhoids, Polyps, Hiatal Hernia, Gall Bladder Disease Musculoskeletal Hx Musculoskeletal Disorders: Yes (CHRONIC GENERALIZED PAIN; RESTLESS LEG SYNDROME) Musculoskeletal Disorders: Degenerate Disk Disease, Arthritis, Chronic Back Pain Endocrine Hx Endocrine Disorders: Yes Endocrine Disorders: Diabetes, Insulin dep HEENT HX ENT Disorders: Yes (WEARS GLASSES) HEENT Disorders: Cataract Loss of Vision: Denies Hearing Impairment: Denies Cancer Hx Cancer: No Psychosocial Hx Psychiatric Problems: Yes Behavioral Health Disorders: Sleep Difficulties, Anxiety, Depression Integumentary HX Skin/Integumentary Disorder: No Blood Transfusions Hx Blood Disorders: No Family Medical History Family Medial History: Completed stroke 09 BROTHER Family history: Asthma 03 MOTHER History of - respiratory disease 03 FATHER (PNEUMONIA) 03 MOTHER (ASTHMA, COPD) Physical Exam Vital Signs Vital Sign - Last 12Hours 11/28/16 18:27 Temp 98.2 Pulse 97 Resp 24 B/P (MAP) 137/90 Pulse Ox 90 O2 Delivery Nasal Cannula O2 Flow Rate 4.00 Capillary Refill : Less Than 3 Seconds General Appearance: WD/WN, Mild Distress (respiratory) HEENT: PERRL/EOMI, Normal ENT Inspection Neck: Normal Inspection Respiratory: Crackles (right base), Wheezing, Other (delayed forced expiration with pursed lips) Cardiovascular: Regular Rate, Rhythm, No Murmur, Other (moderate bilateral lower extremity edema. 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 Norm as Tested Skin: Normal Color, Warm/Dry Progress/Results/Core Measures Results/Orders Lab Results Laboratory Tests Test 11/28/16 18:50 11/28/16 20:08 11/29/16 05:46 Range/Units White Blood Count 9.1 4.3-11.0 10^3/uL Red Blood Count 4.11 L 4.35-5.85 10^6/uL Hemoglobin 10.8 L 11.5-16.0 G/DL Hematocrit 35 35-52 % Mean Corpuscular Volume 85 80-99 FL Mean Corpuscular Hemoglobin 26 25-34 PG Mean Corpuscular Hemoglobin Concent 31 L 32-36 G/DL Red Cell Distribution Width 15.0 H 10.0-14.5 % Platelet Count 374 130-400 10^3/uL Mean Platelet Volume 11.6 H 7.4-10.4 FL Neutrophils (%) (Auto) 75 42-75 % Lymphocytes (%) (Auto) 17 12-44 % Monocytes (%) (Auto) 7 0-12 % Eosinophils (%) (Auto) 1 0-10 % Basophils (%) (Auto) 0 0-10 % Neutrophils # (Auto) 6.9 1.8-7.8 X 10^3 Lymphocytes # (Auto) 1.5 1.0-4.0 X 10^3 Monocytes # (Auto) 0.6 0.0-1.0 X 10^3 Eosinophils # (Auto) 0.1 0.0-0.3 10^3/uL Basophils # (Auto) 0.0 0.0-0.1 10^3/uL B-Type Natriuretic Peptide 18.8 <100.0 PG/ML Sodium Level 140 135-145 MMOL/L Potassium Level 3.9 3.6-5.0 MMOL/L Chloride Level 98 98-107 MMOL/L Carbon Dioxide Level 31 21-32 MMOL/L Anion Gap 11 5-14 MMOL/L Blood Urea Nitrogen 15 7-18 MG/DL Creatinine 0.75 0.60-1.30 MG/DL Estimat Glomerular Filtration Rate > 60 BUN/Creatinine Ratio 20 Glucose Level 140 H 70-105 MG/DL Calcium Level 10.2 H 8.5-10.1 MG/DL Total Bilirubin 0.2 0.1-1.0 MG/DL Aspartate Amino Transf (AST/SGOT) 15 5-34 U/L Alanine Aminotransferase (ALT/SGPT) 16 0-55 U/L Alkaline Phosphatase 85 40-136 U/L C-Reactive Protein High Sensitivity 1.41 H 0.00-0.50 MG/DL Total Protein 6.7 6.4-8.2 G/DL Albumin 3.9 3.2-4.5 G/DL Glucometer 400 *H 70-110 MG/DL Micro Results Microbiology 11/28/16 Influenza Types A,B Antigen (JANET) - Final, Complete My Orders Orders - JAZIEL NICHOLS MD BNP (11/28/16 18:12) Cbc With Automated Diff (11/28/16 18:12) Comprehensive Metabolic Panel (11/28/16 18:12) Chest Pa/Lat (2 View) (11/28/16 18:12) Saline Lock/Iv-Start (11/28/16 18:12) Hs C Reactive Protein (11/28/16 18:52) Influenza A And B Antigens (11/28/16 18:52) Albuterol/Ipra Inhalation Soln (Duoneb I (11/28/16 19:15) Svn Sm Volume Nebulizer Rt-Rfs (11/28/16 19:03) Methylprednisolone Sod Succ (Solu-Medrol (11/28/16 20:45) Albuterol/Ipra Inhalation Soln (Duoneb I (11/28/16 20:45) Svn Sm Volume Nebulizer Rt-Rfs (11/28/16 20:45) Medications Given in ED Current Medications Medications Dose Ordered Sig/Fabienne Route Start Time Stop Time Status Last Admin Dose Admin Albuterol/ Ipratropium 3 ml ONCE ONCE INH 11/28/16 19:15 11/28/16 19:16 DC 11/28/16 19:08 3 ML Albuterol/ Ipratropium 3 ml ONCE ONCE INH 11/28/16 20:45 11/28/16 20:46 DC 11/28/16 20:56 3 ML Methylprednisolone Sodium Succinate 62.5 mg ONCE ONCE IVP 11/28/16 20:45 11/28/16 20:46 DC 11/28/16 20:54 62.5 MG Vital Signs/I&O Vital Sign - Last 12Hours 11/28/16 11/28/16 11/28/16 11/28/16 19:08 20:54 21:28 21:40 Pulse 88 Resp 24 Pulse Ox 99 95 94 94 O2 Flow Rate 4.00 4.00 3.00 3.50 11/28/16 11/28/16 11/29/16 11/29/16 23:15 23:29 00:00 01:00 Temp 96.8 Pulse 93 99 106 Resp 18 B/P (MAP) 173/81 Pulse Ox 93 93 O2 Delivery Nasal Cannula O2 Flow Rate 4.00 3.00 11/29/16 11/29/16 01:00 01:44 Pulse 100 B/P (MAP) 122/68 Pulse Ox 94 O2 Flow Rate 4.00 Blood Pressure Mean: 106 Progress Note #1: Time: 19:08 Progress Note Patient was seen and examined. Labs were ordered. DuoNeb treatment ordered for wheezing. Progress Note #2: Progress Note Patient initially improved after DuoNeb therapy. However wheezing and dyspnea returned. Patient felt uneasy about returning home and requests admission for steroids and further nebulizer treatments. Workup was relatively unremarkable. Patient also complains of dizziness with standing up. Her standing blood pressure was obtained. Heart rate did increase some but she did not drop her pressures significantly. Her wheezing and dyspnea intensified after standing up for the blood pressure check. A second DuoNeb therapy was ordered and she is receiving IV steroids. Dr. Yanes agrees to admission. Diagnostic Imaging Diagonstic Imaging: Xray Plain Films/CT/US/NM/MRI: chest Comments Chest x-ray viewed by me and report reviewed. See report below: NAME: LOKESH BARKLEY [facility] REC#: [id number] PT STATUS: REG ER : 1950 PHYSICIAN: JAZIEL NICHOLS MD ADMIT DATE: 11/28/16/ER Signed Date of Exam:11/28/16 CHEST PA/LAT (2 VIEW) INDICATION: Shortness of breath and weakness. EXAMINATION: PA and lateral views of the chest were obtained at 7:45 p.m. COMPARISON: 10/01/16. FINDINGS: Heart is borderline in size. Mediastinal silhouette is unremarkable. The lungs are clear. There is no pneumothorax or pleural fluid. There are degenerative findings in the thoracic spine with old compression deformity in the lower thoracic spine. IMPRESSION: Borderline heart size with no acute process in the chest. Stable appearance compared to 10/01/16. Dictated by: Dictated on workstation # [id number] Dict: 11/28/161934 Trans: 11/28/161943 [facility] [id number] Interpreted by: HANDY LEAL MD Electronically signed by: HANDY LEAL MD 11/28/161943 Departure Communication Time/Spoke to Admitting Phy: 20:48 Communication Case reviewed with Dr. Yanes who agrees with admission. Impression Impression: Primary Impression: COPD (chronic obstructive pulmonary disease) Qualified Codes: J44.1 - Chronic obstructive pulmonary disease with (acute) exacerbation Disposition: ADMITTED INPATIENT Condition: Improved Departure-Patient Inst. Referrals: RADHA HAYES DO (PCP/Family) Primary Care Physician JAZIEL NICHOLS MD Nov 28, 2016 19:09
[2016-11-28] MEDS ORDERED: RT-ALBUTEROL/IPRATROPIUM 3 ML (DUONEB) VIAL INH ONE ×2 (19:15→20:45)
--- NOTE | 2016-11-28 19:43 | Diagnostic Imaging Report ---
INDICATION: Shortness of breath and weakness. EXAMINATION: PA and lateral views of the chest were obtained at 7:45 p.m. COMPARISON: 10/01/16. FINDINGS: Heart is borderline in size. Mediastinal silhouette is unremarkable. The lungs are clear. There is no pneumothorax or pleural fluid. There are degenerative findings in the thoracic spine with old compression deformity in the lower thoracic spine. IMPRESSION: Borderline heart size with no acute process in the chest. Stable appearance compared to 10/01/16. Dictated by: Dictated on workstation # [id number]
[2016-11-28 20:34] LABS: ALANINE AMINOTRANSFERASE 16 U/L (0-55); ALBUMIN 3.9 G/DL (3.2-4.5); ANION GAP 11 MMOL/L (5-14); ASPARTATE AMINO TRANSFERASE 15 U/L (5-34); BILIRUBIN,TOTAL 0.2 MG/DL (0.1-1.0); BLOOD UREA NITROGEN 15 MG/DL (7-18); BUN/CREATININE RATIO 20; CALCIUM 10.2 MG/DL (8.5-10.1); CARBON DIOXIDE 31 MMOL/L (21-32); CHLORIDE 98 MMOL/L (98-107); CREATININE SERUM 0.75 MG/DL (0.60-1.30); GFR ESTIMATED > 60; GLUCOSE 140 MG/DL (70-105); POTASSIUM 3.9 MMOL/L (3.6-5.0); SODIUM 140 MMOL/L (135-145); TOTAL PROTEIN 6.7 G/DL (6.4-8.2); hs C REACTIVE PROTEIN 1.41 MG/DL (0.00-0.50)
[2016-11-28] MEDS ORDERED: methylPREDNISolone 125 MG (Solu-MEDROL) VIAL IVP ONE (20:45)
[2016-11-28] MEDS ORDERED: inSUlin DETERMIR 1 UNIT/0.01 ML (LEVEMIR) CHARGE PER UNIT SQ ONE (22:43)
[2016-11-28] MEDS ORDERED: HYDROcodone/APAP 10 MG/325 MG (LORTAB) TAB PO PRN (22:45)
[2016-11-28] MEDS ORDERED: RT-ALBUTEROL/IPRATROPIUM 3 ML (DUONEB) VIAL INH PRN (23:30)
[2016-11-29] VITALS (8 sets, daily range): BP systolic 122–173; BP diastolic 68–96
[2016-11-29] MEDS: RT-ALBUTEROL/IPRATROPIUM 3 ML (DUONEB) VIAL INH SCH ×6 (01:42→21:04)
[2016-11-29] MEDS: methylPREDNISolone 40 MG/ML (Solu-MEDROL) VIAL IV SCH ×4 (03:02→20:08)
[2016-11-29] MEDS: inSUlin (REGULAR) HUMAN 1 UNIT/0.01 ML (CHARGE PER UNIT) SC SCH ×4 (06:05→23:05)
[2016-11-29] MEDS: RT-ADVAIR HFA 115/21 MCG PER PUFF IH SCH ×3 (06:43→18:21)
[2016-11-29] MEDS ORDERED: ALPR0.254 PO (09:34)
[2016-11-29] MEDS ORDERED: CATHETER FLUSH 10 ML SYR IV PRN (09:45)
[2016-11-29] MEDS ORDERED: ALPRAZolam 0.25 MG (XANAX) TAB PO PRN (10:15)
[2016-11-29] MEDS ORDERED: guaiFENesin (MUCINEX) 600 MG TAB PO NR (10:15)
--- NOTE | 2016-11-29 10:16 | History & Physicial ---
History of Present Illness History of Present Illness Reason for visit/HPI PT IS A 65 Y/O FEMALE WHO IS A CLINIC PATIENT OF DR. 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 SHE PRESENTED TO THE HOSPITAL AFTER SEVERAL DAYS OF INCREASING SHORTNESS OF BREATH. SHE STATES THAT SHE STARTED TO FEEL LIKE SHE WAS NOT GETTING MUCH OXYGEN IN USUAL, FELT LIKE HER CHEST WAS STARTING TO TIGHTEN UP LIKE IT DID ON PREVIOUS HOSPITALIZATIONS. SHE FINALLY SUCCUMBED TO THE NEED FOR EMERGENCY DEPARTMENT EVALUATION AFTER SHE WAS UNABLE TO AMBULATE DUE TO HER DYSPNEA. Date of Admission Nov 28, 2016 at 20:52 I consulted on this patient on 11/29/16 10:11 Attending Physician Sina Hayes DO Admitting Physician Philip Yanes MD Consult Allergies and Home Medications Allergies Coded Allergies: enalapril (Verified Allergy, Severe, ANAPHYLAXIS, 08/22/13) Home Medications Albuterol Sulfate 2.5 Mg/3 Ml Vial.neb, 2.5 MG NEB Q4H PRN for SHORTNESS OF BREATH, (Reported) Alprazolam 0.25 Mg Tablet, 0.25 MG PO DAILY PRN for ANXIETY, (Reported) Amlodipine Besylate 10 Mg Tablet, 10 MG PO DAILY, (Reported) Atorvastatin Calcium 10 Mg Tablet, 10 MG PO HS, (Reported) Budesonide/Formoterol Fumarate 10.2 Gm Hfa.aer.ad, 2 PUFF IH BID, (Reported) Furosemide 40 Mg Tablet, 40 MG PO DAILY, (Reported) Gabapentin 300 Mg Capsule, 300 MG PO HS, (Reported) Glimepiride 4 Mg Tablet, 8 MG PO DAILY, (Reported) TAKES 2 (4 MG) TABLETS Hydrocodone/Acetaminophen 1 Each Tablet, 1 TAB PO QID PRN for PAIN, (Reported) Insulin Aspart 300 Units/3 Ml Solution, SQ AC PRN for SLIDING SCALE BS ABOVE 200 , (Reported) Insulin Detemir 100 Unit/1 Ml Insuln.pen, 25 UNIT SQ DAILY@1100, (Reported) Metformin HCl 500 Mg Tablet, 1,000 MG PO BID, (Reported) TAKES 2 (500MG) TABLETS Multivit-Min/FA/Lycopene/Lut 1 Each Tablet, 1 TAB PO DAILY, (Reported) Naproxen 500 Mg Tablet, 500 MG PO BID, (Reported) [place]-3/Dha/Epa/Fish Oil 1 Each Capsule, 1,000 MG PO DAILY, (Reported) Potassium Chloride 10 Meq Capsule.er, 10 MEQ PO HS, (Reported) Pramipexole Di-HCl 1 Mg Tablet, 1 MG PO HS, (Reported) Sertraline HCl 50 Mg Tablet, 50 MG PO HS, (Reported) Tiotropium [place] 4 Gm Mist.inhal, 2 PUFF IH DAILY, (Reported) Past Gyasdnn-Lrqjgp-Tikyph Hx Patient Social History Marrital Status: single Living Status: LIVES AT HOME ALONE Employed/Student: retired Alcohol Use: Denies Use Recreational Drug Use: No Smoking Status: Former Smoker Type Used: Cigarettes 2nd Hand Smoke Exposure: Yes Physical Abuse Screen: No Sexual Abuse: No Recent Foreign Travel: No Contact w/other who traveled: No Recent Hopitalizations: Yes (copd/PNA) Recent Infectious Disease Expo: No Immunizations Up To Date Tetanus Booster (TDap): More than 5yrs Date of Pneumonia Vaccine: May 21, 2013 Date of Influenza Vaccine: Jun 08, 2016 Seasonal Allergies Seasonal Allergies: Yes Surgeries HX Surgeries: Yes Surgeries: Gallbladder, Joint Replacement (Hip), Orthopedic Respiratory Hx Respiratory Disorders: Yes Respiratory Disorders: COPD Cardiovascular Hx Cardiovascular Disorders: Yes (CHF) Cardiac Disorders: Chronic Edema/Swelling, Hypertension Neurological Hx Neurological Disorders: No 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 System Hx 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 Disorders: No Sexually Transmitted Disease: No HIV/AIDS: No Female 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 Disorders: Denies Genitourinary Hx Genitourinary Disorders: No Gastrointestinal Hx Gastrointestinal Disorders: Yes Gastrointestinal Disorders: Gastroesophageal Reflux, Chronic Constipation, Diverticulosis, Hemorrhoids, Polyps, Hiatal Hernia, Gall Bladder Disease Musculoskeletal Hx Musculoskeletal Disorders: Yes (CHRONIC GENERALIZED PAIN; RESTLESS LEG SYNDROME) Musculoskeletal Disorders: Degenerate Disk Disease, Arthritis, Chronic Back Pain Endocrine Hx Endocrine Disorders: Yes Endocrine Disorders: Diabetes, Insulin dep HEENT HX ENT Disorders: Yes (WEARS GLASSES) HEENT Disorders: Cataract Loss of Vision: Denies Hearing Impairment: Denies Cancer Hx Cancer: No Psychosocial Hx Psychiatric Problems: Yes Behavioral Health Disorders: Sleep Difficulties, Anxiety, Depression Integumentary HX Skin/Integumentary Disorder: No Blood Transfusions Hx Blood Disorders: No Reviewed Nursing Assessment Reviewed/Agree w Nursing PMH: Yes Family Medical History Significant Family History: Heart Disease, COPD, Hypertension, Lung Disease Family Hx: Completed stroke 09 BROTHER Family history: Asthma 03 MOTHER History of - respiratory disease 03 FATHER (PNEUMONIA) 03 MOTHER (ASTHMA, COPD) Constitutional: No chills, No diaphoresis, No fever, malaise, weakness EENTM: No hoarseness, No mouth pain, No throat pain, No throat swelling Respiratory: dyspnea on exertion, short of breath, wheezing Cardiovascular: No chest pain, No palpitations Gastrointestinal: No abdominal pain, No constipation, No diarrhea Genitourinary: no symptoms reported Musculoskeletal: back pain, joint pain, muscle weakness Skin: no symptoms reported Psychiatric/Neurological: Anxiety All Other Systems Reviewed Negative Unless Noted: Yes Physical Exam Vital Signs Vital Sign - Last 12Hours 11/28/16 18:27 Temp 98.2 Pulse 97 Resp 24 B/P (MAP) 137/90 Pulse Ox 90 O2 Delivery Nasal Cannula O2 Flow Rate 4.00 Capillary Refill : Less Than 3 Seconds General Appearance: WD/WN, Mild Distress Eyes: Bilateral Eye EOMI, Bilateral Eye Normal Inspection, Bilateral Eye PERRL HEENT: PERRL/EOMI, Pharynx Normal Neck: Full Range of Motion, Supple Respiratory: Chest Non Tender, Decreased Breath Sounds, Wheezing Cardiovascular: Regular Rate, Rhythm, No Edema Gastrointestinal: Normal Bowel Sounds, No Organomegaly, No Pulsatile Mass, Non Tender, Soft Rectal: Deferred Extremity: Normal Capillary Refill, No Calf Tenderness, Pedal Edema (TRACE) Neurologic/Psychiatric: Alert, Oriented x3, No Motor/Sensory Deficits, Normal Mood/Affect Skin: Normal Color, Warm/Dry Lymphatic: No Adenopathy Assessment/Plan Assessment and Plan COPD EXACERBATION HYPERTENSION DIABETES MELLITUS CHRONIC OXYGEN DEPENDENCE DEPRESSION ANXIETY CHRONIC PAIN SYNDROME OSTEOARTHRITIS COPD EXACERBATION - PT ON IV STEROIDS - CONTINUE WITH STEROID, BREATHING TREATMENTS - MONITOR SYMPTOMS CONTINUE WITH OXYGEN FOR CHRONIC OXYGEN DEPENDENCE. PT MAY BE ABLE TO BE DISCHARGED TO HOME TOMORROW IF HER DYSPNEA IMPROVES. HYPERTENSION - RESTART HOME MEDICATIONS - MONITOR BLOOD PRESSURE ON HOME MEDICATIONS. DIABETES MELLITUS - ELEVATED DUE TO IV STEROIDS - MONITOR PT'S FSBS ON SLIDING SCALE INSULIN, METFORMIN. FSBS SHOULD IMPROVE ONCE OFF OF IV STEROIDS. DEPRESSION AND ANXIETY- RESTART HOME MEDICATIONS. CHRONIC PAIN SYNDROME - RESTARTED HYDROCODONE LAST NIGHT. OSTEOARTHRITIS - RESTARTED NAPROXEN. Problems: Admission Diagnosis COPD EXACERBATION HYPERTENSION DIABETES MELLITUS CHRONIC OXYGEN DEPENDENCE DEPRESSION ANXIETY CHRONIC PAIN SYNDROME OSTEOARTHRITIS Clinical Quality Measures DVT/VTE Risk/Contraindication: Risk Factor Score Per Nursin RFS Level Per Nursing on Admit: 4+=Very High PHILIP YANES MD Nov 29, 2016 10:16
[2016-11-29] MEDS: UMECLIDINIUM BROMIDE (INCRUSE ELLIPTA) 7'S IH SCH (10:28)
[2016-11-29] MEDS ORDERED: PATIENT MAY USE OWN MEDS, ALL MC SCH (10:30)
[2016-11-29] MEDS ORDERED: NON-FORMULARY MEDICATION 1 EA EA (Insulin Detemir (Levemir Flextouch) 25 UNIT) SQ SCH (11:00)
[2016-11-29] MEDS: ENOXAPARIN 40 MG/0.4 ML (LOVENOX) SYR SC SCH (11:06)
[2016-11-29] MEDS: inSUlin DETERMIR 1 UNIT/0.01 ML (LEVEMIR) CHARGE PER UNIT SQ SCH (11:07)
[2016-11-29] MEDS: amLODIPine 10 MG (NORVASC) TAB PO SCH (11:33)
[2016-11-29] MEDS: FUROSEMIDE 40 MG (LASIX) TAB PO SCH (11:34)
[2016-11-29] MEDS: HYDROcodone/APAP 10 MG/325 MG (LORTAB) TAB PO PRN ×2 (11:34→17:02)
[2016-11-29] MEDS: CATHETER FLUSH 10 ML SYR IV SCH ×2 (14:10→20:12)
[2016-11-29] MEDS: NAPROXEN 500 MG TAB PO SCH (16:52)
[2016-11-29] MEDS: metFORMIN 500 MG (GLUCOPHAGE) TAB PO SCH (16:53)
[2016-11-29] MEDS: GABAPENTIN 300 MG (NEURONTIN) CAP PO SCH (20:09)
[2016-11-29] MEDS: PRAMIPEXOLE 0.5 MG TAB (MIRAPEX) PO SCH (20:09)
[2016-11-29] MEDS: guaiFENesin (MUCINEX) 600 MG TAB PO SCH (20:09)
[2016-11-29] MEDS: ATORVASTATIN 10 MG (LIPITOR) TABLET PO SCH (20:10)
[2016-11-29] MEDS: SERTRALINE 50 MG (ZOLOFT) TABLET PO SCH (20:10)
[2016-11-29] MEDS: KCL 10 MEQ TAB (MICRO K) PO SCH (20:11)
[2016-11-29] MEDS ORDERED: inSUlin DETERMIR 1 UNIT/0.01 ML (LEVEMIR) CHARGE PER UNIT SQ SCH (21:00)
[2016-11-29] MEDS ORDERED: NON-FORMULARY MEDICATION 1 EA EA (Potassium Chloride 10 MEQ) PO SCH (21:00)
[2016-11-29] MEDS ORDERED: NON-FORMULARY MEDICATION 1 EA EA (Pramipexole Di-HCl (Pramipexole Dihydrochloride) 1 MG) PO SCH (21:00)
[2016-11-30] MEDS: RT-ALBUTEROL/IPRATROPIUM 3 ML (DUONEB) VIAL INH SCH ×6 (02:05→22:24)
[2016-11-30] MEDS: methylPREDNISolone 40 MG/ML (Solu-MEDROL) VIAL IV SCH ×2 (02:09→08:30)
[2016-11-30 04:00] VITALS: BP 156/76
[2016-11-30] MEDS: inSUlin (REGULAR) HUMAN 1 UNIT/0.01 ML (CHARGE PER UNIT) SC SCH ×4 (06:11→20:19)
[2016-11-30] MEDS: CATHETER FLUSH 10 ML SYR IV SCH ×3 (06:11→22:00)
[2016-11-30] MEDS: MULTIVIT W/MINERALS TAB (THERAGRAN M) PO SCH (06:11)
[2016-11-30] MEDS: NAPROXEN 500 MG TAB PO SCH ×2 (06:12→17:25)
[2016-11-30] MEDS: metFORMIN 500 MG (GLUCOPHAGE) TAB PO SCH ×2 (06:13→17:25)
[2016-11-30] MEDS: HYDROcodone/APAP 10 MG/325 MG (LORTAB) TAB PO PRN ×3 (06:25→20:20)
[2016-11-30] MEDS: RT-ADVAIR HFA 115/21 MCG PER PUFF IH SCH ×2 (06:30→18:23)
[2016-11-30] MEDS: UMECLIDINIUM BROMIDE (INCRUSE ELLIPTA) 7'S IH SCH (06:32)
[2016-11-30 07:44] VITALS: BP 160/91
[2016-11-30] MEDS: OMEGA 3 (FISH OIL) 1000 MG CAP PO SCH (08:29)
[2016-11-30] MEDS: guaiFENesin (MUCINEX) 600 MG TAB PO SCH ×2 (08:29→20:19)
[2016-11-30] MEDS: FUROSEMIDE 40 MG (LASIX) TAB PO SCH (08:30)
[2016-11-30] MEDS: amLODIPine 10 MG (NORVASC) TAB PO SCH (08:31)
[2016-11-30] MEDS ORDERED: NON-FORMULARY MEDICATION 1 EA EA (Multivit-Min/FA/Lycopene/Lut (Centrum Silver Tablet) 1 T PO SCH (09:00)
[2016-11-30] MEDS: inSUlin DETERMIR 1 UNIT/0.01 ML (LEVEMIR) CHARGE PER UNIT SQ SCH (11:30)
[2016-11-30] MEDS: ENOXAPARIN 40 MG/0.4 ML (LOVENOX) SYR SC SCH (11:30)
[2016-11-30 11:36] VITALS: BP 152/87
--- NOTE | 2016-11-30 13:03 | Progress Note (SOAP) ---
Subjective Subjective 65 yo F admtted for COPD exacerbation- pt reports she is improved but not enough to go home today. She is very anxious she also notes- this is a chronic problem for her. She wants to get some rest while she is here at the hospital. She reports she usually is on 4L oxygen [place]. Review of Systems General: No Chills, No Night Sweats HEENT: Head Aches Pulmonary: Dyspnea, Cough Cardiovascular: No: Chest Pain, Palpitations Gastrointestinal: No: Abdominal Pain, Nausea, Vomiting Genitourinary: No Dysuria Musculoskeletal: No: neck pain, shoulder pain Neurological: No: Weakness All Other Systems Reviewed All Other Systems Reviewed: Yes Objective Exam Vital Signs Vital Sign - Last 12Hours 11/28/16 18:27 Temp 98.2 Pulse 97 Resp 24 B/P (MAP) 137/90 Pulse Ox 90 O2 Delivery Nasal Cannula O2 Flow Rate 4.00 Capillary Refill : Less Than 3 Seconds General Appearance: WD/WN, Mild Distress (respiratory) Eyes: Bilateral Eye EOMI, Bilateral Eye Normal Inspection, Bilateral Eye PERRL HEENT: PERRL/EOMI, Pharynx Normal Neck: Full Range of Motion, Supple Respiratory: Chest Non Tender, Decreased Breath Sounds, Rhonci (coarse breath sounds throughout), Wheezing Cardiovascular: Regular Rate, Rhythm, No Edema Gastrointestinal: Normal Bowel Sounds, No Organomegaly, No Pulsatile Mass, Non Tender, Soft Rectal: Deferred Extremity: Normal Capillary Refill, No Calf Tenderness, Pedal Edema (TRACE) Neurologic/Psychiatric: Alert, Oriented x3, No Motor/Sensory Deficits, Normal Mood/Affect, Other (anxious) Skin: Normal Color, Warm/Dry Lymphatic: No Adenopathy Results Lab Laboratory Tests 11/29/16 13:57: Glucometer 391H 11/29/16 16:52: Glucometer 385H 11/29/16 22:52: Glucometer 370H 11/30/16 06:04: Glucometer 318H 11/30/16 09:19: Glucometer 397H Microbiology 11/28/16 Influenza Types A,B Antigen (JANET) - Final, Complete Assessment/Plan Assessment/Plan Assessment/Plan 65 yo F COPD exacerbation- methylprednisolone to po prednisone- continue SVN- on 3L oxygen [place]- her baseline at home is 4L. HTN- on home meds- monitor Diabetes mellitus- elevated blood sugar worsened by steroids. SSI Anxiety- continue home meds Chronic pain syndrome- on hydrocodone. Osteoarthritis- on naproxen. Dispo: transitioned to po prednisone- plan to d/c to home tomorrow. Problems: Clinical Quality Measures DVT/VTE Risk/Contraindication: Risk Factor Score Per Nursin RFS Level Per Nursing on Admit: 4+=Very High DAVID HUNTLEY MD Nov 30, 2016 1:03 pm
[2016-11-30 16:00] VITALS: BP 160/78
[2016-11-30] MEDS ORDERED: DEXAMETHASONE 4 MG TAB (DECADRON) PO NR (16:00)
[2016-11-30 20:05] VITALS: BP 146/83
[2016-11-30] MEDS: PRAMIPEXOLE 0.5 MG TAB (MIRAPEX) PO SCH (20:10)
[2016-11-30] MEDS: ATORVASTATIN 10 MG (LIPITOR) TABLET PO SCH (20:11)
[2016-11-30] MEDS: SERTRALINE 50 MG (ZOLOFT) TABLET PO SCH (20:11)
[2016-11-30] MEDS: GABAPENTIN 300 MG (NEURONTIN) CAP PO SCH (20:11)
[2016-11-30] MEDS: KCL 10 MEQ TAB (MICRO K) PO SCH (20:12)
[2016-11-30 22:50] VITALS: BP 154/75
[2016-12-01] MEDS: RT-ALBUTEROL/IPRATROPIUM 3 ML (DUONEB) VIAL INH SCH ×3 (02:00→10:50)
[2016-12-01] MEDS: HYDROcodone/APAP 10 MG/325 MG (LORTAB) TAB PO PRN ×2 (02:40→10:07)
[2016-12-01 04:00] VITALS: BP 137/77
[2016-12-01] MEDS: CATHETER FLUSH 10 ML SYR IV SCH (05:37)
[2016-12-01] MEDS: inSUlin (REGULAR) HUMAN 1 UNIT/0.01 ML (CHARGE PER UNIT) SC SCH ×2 (05:37→10:03)
[2016-12-01] MEDS: UMECLIDINIUM BROMIDE (INCRUSE ELLIPTA) 7'S IH SCH (06:53)
[2016-12-01] MEDS: RT-ADVAIR HFA 115/21 MCG PER PUFF IH SCH (06:53)
[2016-12-01] MEDS ORDERED: predniSONE 20 MG TAB PO SCH (07:00)
[2016-12-01] MEDS: MULTIVIT W/MINERALS TAB (THERAGRAN M) PO SCH (07:35)
[2016-12-01] MEDS: metFORMIN 500 MG (GLUCOPHAGE) TAB PO SCH (07:36)
[2016-12-01] MEDS: NAPROXEN 500 MG TAB PO SCH (07:36)
[2016-12-01 08:00] VITALS: BP 129/87
[2016-12-01] MEDS: guaiFENesin (MUCINEX) 600 MG TAB PO SCH (09:13)
[2016-12-01] MEDS: OMEGA 3 (FISH OIL) 1000 MG CAP PO SCH (09:13)
[2016-12-01] MEDS: amLODIPine 10 MG (NORVASC) TAB PO SCH (09:14)
[2016-12-01] MEDS: FUROSEMIDE 40 MG (LASIX) TAB PO SCH (09:15)
[2016-12-01] MEDS ORDERED: PRD20T PO (09:51)
--- NOTE | 2016-12-01 09:53 | Discharge Inst-Simple/Standard ---
Discharge Inst-Standard Discharge Medications New, Converted or Re-Newed RX: RX on Chart Patient Instructions/Follow Up Plan of Care/Instructions/FU: follow up within the week at Dr. Barros's office finish prednisone course resume home inhalers no tobacco smoking Activity as Tolerated: Yes Discharge Diet: Eat Small Frequent Meals Return to The Hospital For: worsening respiratory status DAVID HUNTLEY MD Dec 01, 2016 09:53
--- NOTE | 2016-12-01 09:55 | Discharge Summary ---
Diagnosis/Chief Complaint Date of Admission Nov 28, 2016 at 21:40 Date of Discharge November Admission Diagnosis Admission Diagnosis COPD EXACERBATION HYPERTENSION DIABETES MELLITUS CHRONIC OXYGEN DEPENDENCE DEPRESSION ANXIETY CHRONIC PAIN SYNDROME OSTEOARTHRITIS Discharge Diagnosis 65 yo F COPD exacerbation- HTN- Diabetes mellitus- Anxiety- Chronic pain syndrome- Osteoarthritis Reason Hospital Visit 65 yo F with COPD- admitted for dyspnea- feeling of difficulty breathing and acute worsening of her COPD- She did not experience a increase in oxygen requirement. Discharge Summary Hospital Course Hospital Course 65 yo F admitted for COPD exacerbation- she transitioned well from IV methylprednisolone to po prednisone- Oxygen requirements were 2-3L during her stay- her baseline at home is 4L. Her blood pressure was controlled with her home meds. Pt tolerated her meals well, eating nearly all of her food. As for her Diabetes mellitus- elevated blood sugar worsened by steroids; expect it to trend back down. Anxiety- she continued her home meds Chronic pain syndrome- on hydrocodone. Osteoarthritis- on naproxen. Patient reports each day she would like to stay one more day to make sure she is better. She did not have increased work of breathing or increased oxygen requirement. Pt did improve. Pt was stable for discharge to home 12/01/16. Labs Laboratory Tests 11/29/16 05:46: Glucometer 400*H 11/29/16 13:57: Glucometer 391H 11/29/16 16:52: Glucometer 385H 11/29/16 22:52: Glucometer 370H 11/30/16 06:04: Glucometer 318H 11/30/16 09:19: Glucometer 397H 11/30/16 14:59: Glucometer 386H 11/30/16 20:10: Glucometer 335H 12/01/16 05:36: Glucometer 328H 12/01/16 09:53: Glucometer 313H Procedures None. Discharge Physical Examination Allergies: Coded Allergies: enalapril (Verified Allergy, Severe, ANAPHYLAXIS, 08/22/13) Vitals & I&Os Vital Signs Date Time Temp Pulse Resp B/P (MAP) Pulse Ox O2 Delivery O2 Flow Rate FiO2 12/01/16 10:50 96 3.00 12/01/16 09:00 Nasal Cannula 12/01/16 08:00 97.9 85 13 129/87 General Appearance: Alert, Oriented X3 HEENT: Atraumatic, PERRLA, Other (poor dentition) Respiratory: Other (wheezing improved- still a little tight sounding but likely at baseline.) Cardiovascular: Regular Rate, Normal S1, Normal S2 Abdominal: Normal Bowel Sounds, Soft Extremities: No Clubbing Skin: No Rashes Neuro: Normal Speech Psych/Mental Status: Mental Status NL, Mood NL Discharge Home Medications Reviewed and agree with Discharge Medication list on patient's Discharge Instruction sheet Condition at Discharge stable, improved Instructions to Patient/Family Please see electronic discharge instructions given to patient. Clinical Quality Measures DVT/VTE Risk/Contraindication: Risk Factor Score Per Nursin RFS Level Per Nursing on Admit: 4+=Very High DAVID HUNTLEY MD Dec 01, 2016 09:55
[2016-12-01] MEDS: ENOXAPARIN 40 MG/0.4 ML (LOVENOX) SYR SC SCH (11:47)
[2016-12-01] MEDS: inSUlin DETERMIR 1 UNIT/0.01 ML (LEVEMIR) CHARGE PER UNIT SQ SCH (11:51)
--- OUTSIDE RECORDS SUMMARY | 2016-12-30 00:04 | XMS REPORT | Continuity of Care Document ---
Author Author [facility] Organization [facility] Address Unknown Phone Unavailable Allergies Active Description Code Type Severity Reaction Onset Reported/Identified Relationship to Patient Clinical Status Yes enalapril [id number] Drug Allergy Severe ANAPHYLAXIS 08/22/2013 Medications Problems Date Dx Coded Attending Type Code Diagnosis Diagnosed By 02/08/2011 Ot 250.00 DIAB BG WO COMPL, TYPE II OR UNSPEC TY 02/08/2011 Ot 276.1 HYPOSMOLALITY 02/08/2011 Ot 305.1 TOBACCO USE DISORDER 02/08/2011 Ot 401.9 HYPERTENSION NOS 02/08/2011 Ot 491.21 OBSTR CHRONIC BRONCHITIS, W (ACUTE) EXAC 02/08/2011 Ot 716.90 ARTHROPATHY NOS-UNSPEC 02/08/2011 Ot 780.52 INSOMNIA, UNSPECIFIED 03/05/2011 Ot 305.1 TOBACCO USE DISORDER 03/05/2011 Ot 496 CHR AIRWAY OBSTRUCT NEC 03/05/2011 Ot 716.90 ARTHROPATHY NOS-UNSPEC 03/05/2011 Ot 780.52 INSOMNIA, UNSPECIFIED 03/05/2011 Ot 995.1 ANGIONEUROTIC EDEMA 03/05/2011 Ot V58.66 LONG-TERM (CURRENT) USE OF ASPIRIN 03/05/2011 Ot V58.69 OTH MED,LT,CURRENT USE 07/20/2011 Ot 250.00 DIAB BG WO COMPL, TYPE II OR UNSPEC TY 07/20/2011 Ot 272.4 HYPERLIPIDEMIA NEC/NOS 07/20/2011 Ot 305.1 TOBACCO USE DISORDER 07/20/2011 Ot 401.9 HYPERTENSION NOS 07/20/2011 Ot 491.22 OBSTRUCTIVE CHRONIC BRONCHITIS WITH ACUT 11/09/2011 Ot 250.00 DIAB BG WO COMPL, TYPE II OR UNSPEC TY 11/09/2011 Ot 305.1 TOBACCO USE DISORDER 11/09/2011 Ot 401.9 HYPERTENSION NOS 11/09/2011 Ot 491.21 OBSTR CHRONIC BRONCHITIS, W (ACUTE) EXAC 11/09/2011 Ot 716.90 ARTHROPATHY NOS-UNSPEC 03/11/2012 Ot 250.00 DIAB BG WO COMPL, TYPE II OR UNSPEC TY 03/11/2012 Ot 300.00 ANXIETY STATE NOS 03/11/2012 Ot 305.1 TOBACCO USE DISORDER 03/11/2012 Ot 311 DEPRESSIVE DISORDER NEC 03/11/2012 Ot 333.94 RESTLESS LEGS SYNDROME 03/11/2012 Ot 338.4 CHRONIC PAIN SYNDROME 03/11/2012 Ot 401.9 HYPERTENSION NOS 03/11/2012 Ot 477.9 ALLERGIC RHINITIS NOS 03/11/2012 Ot 486 PNEUMONIA, ORGANISM NOS 03/11/2012 Ot 491.21 OBSTR CHRONIC BRONCHITIS, W (ACUTE) EXAC 03/11/2012 Ot 715.90 OSTEOARTHROS NOS-UNSPEC 03/11/2012 Ot 780.52 INSOMNIA, UNSPECIFIED 05/27/2012 Ot 211.3 BENIGN NEOPLASM LG BOWEL 05/27/2012 Ot 250.00 DIAB BG WO COMPL, TYPE II OR UNSPEC TY 05/27/2012 Ot 401.9 HYPERTENSION NOS 05/27/2012 Ot 455.3 EXT HEMORRHOID W/O COMPL 05/27/2012 Ot 562.10 DIVERTICULOSIS COLON (W/O MENT OF HEMORR 07/20/2012 Ot 250.00 DIAB BG WO COMPL, TYPE II OR UNSPEC TY 07/20/2012 Ot 272.4 HYPERLIPIDEMIA NEC/NOS 07/20/2012 Ot 305.1 TOBACCO USE DISORDER 07/20/2012 Ot 401.9 HYPERTENSION NOS 07/20/2012 Ot 491.21 OBSTR CHRONIC BRONCHITIS, W (ACUTE) EXAC 08/05/2012 Ot 250.00 DIAB BG WO COMPL, TYPE II OR UNSPEC TY 08/05/2012 Ot 285.9 ANEMIA NOS 08/05/2012 Ot 305.1 TOBACCO USE DISORDER 08/05/2012 Ot 401.9 HYPERTENSION NOS 08/05/2012 Ot 491.21 OBSTR CHRONIC BRONCHITIS, W (ACUTE) EXAC 08/05/2012 Ot 792.1 ABN FIND-STOOL CONTENTS 08/31/2013 MIGUEL ÁNGELLENRADHA CORREA DO Ot 250.00 DIAB BG WO COMPL, TYPE II OR UNSPEC TY 08/31/2013 MIGUEL ÁNGELLENRADHA CORREA DO Ot 276.1 HYPOSMOLALITY 08/31/2013 RADHA HAYES DO Ot 285.9 ANEMIA NOS 08/31/2013 RADHA HAYES DO Ot 305.1 TOBACCO USE DISORDER 08/31/2013 RADHA HAYES DO Ot 381.4 NONSUPP OTITIS MEDIA NOS 08/31/2013 RADHA HAYES DO Ot 401.9 HYPERTENSION NOS 08/31/2013 RADHA HAYES DO Ot 428.0 CONGESTIVE HEART FAILURE NOS 08/31/2013 RADHA HAYES DO Ot 428.30 UNSPEC DIASTOLIC HRT FAILURE 08/31/2013 RADHA HAYES DO Ot 486 PNEUMONIA, ORGANISM NOS 08/31/2013 RADHA HAYES DO Ot 491.21 OBSTR CHRONIC BRONCHITIS, W (ACUTE) EXAC 09/13/2014 Ot 490 09/13/2014 Ot 496 09/13/2014 Ot 780.79 09/13/2014 Ot 783.1 09/13/2014 Ot V72.84 09/13/2014 KAIT BUTCHER MD Ot 250.00 DIAB BG WO COMPL, TYPE II OR UNSPEC TY 09/13/2014 KAIT BUTCHER MD Ot 401.9 HYPERTENSION NOS 09/13/2014 KAIT BUTCHER MD Ot 487.1 FLU W RESP MANIFEST NEC 09/13/2014 KAIT BUTCHER MD Ot 496 CHR AIRWAY OBSTRUCT NEC 09/13/2014 KAIT BUTCHER MD Ot 786.05 SHORTNESS OF BREATH 09/13/2014 KAIT BUTCHER MD Ot V58.69 OTH MED,LT,CURRENT USE 09/13/2014 Ot 490 09/13/2014 Ot 496 09/13/2014 Ot 780.79 09/13/2014 Ot 783.1 09/13/2014 Ot V72.84 09/26/2014 [place], BERTHA Handley Ot 211.3 BENIGN NEOPLASM LG BOWEL 09/26/2014 [place], BERTHA Handley Ot 250.00 DIAB BG WO COMPL, TYPE II OR UNSPEC TY 09/26/2014 BERTHA BETHEA MD Ot 401.9 HYPERTENSION NOS 09/26/2014 BERTHA BETHEA MD Ot 496 CHR AIRWAY OBSTRUCT NEC 09/26/2014 BERTHA BETHEA MD Ot 530.10 ESOPHAGITIS NOS 09/26/2014 BERTHA BETHEA MD Ot 532.90 DUODENAL ULCER NOS 09/26/2014 BERTHA BETHEA MD Ot 553.3 DIAPHRAGMATIC HERNIA 09/26/2014 BERTHA BETHEA MD Ot 562.10 DIVERTICULOSIS COLON (W/O MENT OF HEMORR 12/28/2014 Ot 490 12/28/2014 Ot 496 12/28/2014 Ot 780.79 12/28/2014 Ot 783.1 12/28/2014 Ot V72.84 12/28/2014 Ot 490 12/28/2014 Ot 496 12/28/2014 Ot 780.79 12/28/2014 Ot 783.1 12/28/2014 Ot V72.84 06/28/2015 Ot 490 06/28/2015 Ot 496 06/28/2015 Ot 780.79 06/28/2015 Ot 783.1 06/28/2015 Ot V72.84 07/17/2015 RADHA HAYES DO Ot E11.9 07/17/2015 RADHA HAYES DO Ot J44.9 08/05/2015 KAIT BUTCHER MD Ot E11.65 TYPE 2 DIABETES MELLITUS WITH HYPERGLYCE 08/05/2015 KAIT BUTCHER MD Ot J44.1 CHRONIC OBSTRUCTIVE PULMONARY DISEASE W 08/05/2015 KAIT BUTCHER MD Ot Z79.899 OTHER RETIREMENT (CURRENT) DRUG THERAPY 08/05/2015 KAIT BUTCHER MD Ot Z99.81 DEPENDENCE ON SUPPLEMENTAL OXYGEN 10/09/2015 Ot 490 10/09/2015 Ot 496 10/09/2015 Ot 780.79 10/09/2015 Ot 783.1 10/09/2015 Ot V72.84 10/09/2015 RADHA HAYES DO Ot E11.9 10/09/2015 RADHA HAYES DO Ot J44.9 10/09/2015 Ot I50.9 10/09/2015 Ot J44.9 10/23/2015 RADHA HAYES DO Ot M79.89 10/23/2015 RADHA HAYES DO Ot R05 10/23/2015 RADHA HAYES DO Ot R06.02 10/23/2015 RADHA HAYES DO Ot R06.2 11/13/2015 Ot 490 11/13/2015 Ot 496 11/13/2015 Ot 780.79 11/13/2015 Ot 783.1 11/13/2015 Ot V72.84 11/13/2015 RADHA HAYES DO Ot E11.9 11/13/2015 RADHA HAYES DO Ot J44.9 11/13/2015 Ot I50.9 11/13/2015 Ot J44.9 11/13/2015 MIGUEL ÁNGELMAGDAMADELINE RADHA GOINS Ot M79.89 11/13/2015 RADHA HAYES DO Ot R05 11/13/2015 FREDDY RADHA GOINS Ot R06.02 11/13/2015 FREDDY GOINSRADHA Ot R06.2 11/17/2015 FREDDY GOINSRADHA Ot E11.65 TYPE 2 DIABETES MELLITUS WITH HYPERGLYCE 11/17/2015 FREDDY RADHA GOINS Ot E66.01 MORBID (SEVERE) OBESITY DUE TO EXCESS CA 11/17/2015 OCHOAMADELINE RADHA GOINS Ot G47.33 OBSTRUCTIVE SLEEP APNEA (ADULT) ( PEDIATR 11/17/2015 RADHA HAYES DO Ot I10 ESSENTIAL (PRIMARY) HYPERTENSION 11/17/2015 RADHA HAYES DO Ot J18.9 PNEUMONIA, UNSPECIFIED ORGANISM 11/17/2015 RADHA HAYES DO Ot J44.1 CHRONIC OBSTRUCTIVE PULMONARY DISEASE W 11/17/2015 RADHA HAYES DO Ot Z68.33 BODY MASS INDEX (BMI) 33.0-33.9, ADULT 11/17/2015 MIGUEL ÁNGELMAGDAMADELINE RADHA GOINS Ot Z87.891 PERSONAL HISTORY OF NICOTINE DEPENDENCE 05/01/2016 RADHA HAYES DO Ot J44.9 CHRONIC OBSTRUCTIVE PULMONARY DISEASE , U 05/07/2016 RADHA HAYES DO Ot J44.9 CHRONIC OBSTRUCTIVE PULMONARY DISEASE , U 06/27/2016 Ot 490 BRONCHITIS NOS 06/27/2016 Ot 496 CHR AIRWAY OBSTRUCT NEC 06/27/2016 Ot 780.79 OTH MALAISE FATIGUE 06/27/2016 Ot 783.1 ABNORMAL WEIGHT GAIN 06/27/2016 Ot V72.84 EXAM PRE-OPERATIVE NOS 06/27/2016 RADHA HAYES DO Ot E11.9 TYPE 2 DIABETES MELLITUS WITHOUT COMPLIC 06/27/2016 RADHA HAYES DO Ot J44.9 CHRONIC OBSTRUCTIVE PULMONARY DISEASE , U 06/27/2016 Ot I50.9 HEART FAILURE, UNSPECIFIED 06/27/2016 Ot J44.9 CHRONIC OBSTRUCTIVE PULMONARY DISEASE, U 06/27/2016 RADHA HAYES DO Ot M79.89 OTHER SPECIFIED SOFT TISSUE DISORDERS 06/27/2016 RADHA HAYES DO A Ot R05 COUGH 06/27/2016 FREDDY GOINS, RADHA Bianchi Ot R06.02 SHORTNESS OF BREATH 06/27/2016 FREDDY GOINS, RADHA Bianchi Ot R06.2 WHEEZING 06/27/2016 FREDDY DO, RADHA Bianchi Ot J44.9 CHRONIC OBSTRUCTIVE PULMONARY DISEASE , U 06/28/2016 FREDDY GOINS, RADHA Bianchi Ot E11.9 TYPE 2 DIABETES MELLITUS WITHOUT COMPLIC 06/28/2016 FREDDY GOINS, RADHA Bianchi Ot I11.0 HYPERTENSIVE HEART DISEASE WITH HEART FA 06/28/2016 FREDDY GOINS, RADHA Bianchi Ot I50.9 HEART FAILURE, UNSPECIFIED 06/28/2016 FREDDY GOINS, RADHA Bianchi Ot J44.9 CHRONIC OBSTRUCTIVE PULMONARY DISEASE , U 06/28/2016 FREDDY GOINS, RADHA Bianchi Ot J45.909 UNSPECIFIED ASTHMA, UNCOMPLICATED 06/28/2016 FREDDY GOINSRADHA Ot R19.04 LEFT LOWER QUADRANT ABDOMINAL SWELLING, 06/28/2016 FREDDY GOINSRADHA Ot R91.8 OTHER NONSPECIFIC ABNORMAL FINDING OF RUTH 06/28/2016 FREDDY GOINSRADHA Ot S22.31XA FRACTURE OF ONE RIB, RIGHT SIDE, INIT FO 06/28/2016 FREDDY GOINSRADHA Ot S27.321A CONTUSION OF LUNG, UNILATERAL, INITIAL E 06/28/2016 FREDDY GOINSRADHA Ot S32.019A UNSP FRACTURE OF FIRST LUMBAR VERTEBRA, 06/28/2016 FREDDY GOINSRADHA Ot W18.39XA OTHER FALL ON SAME LEVEL, INITIAL ENCOUN 06/28/2016 FREDDY GOINSRADHA Ot Y92.[address] IN [facility] NON-[facility] ( PRIVATE 06/28/2016 FREDDY GOINSRADHA Ot Z79.4 RETIREMENT (CURRENT) USE OF INSULIN 06/28/2016 FREDDY GOINSRADHA Ot Z87.891 PERSONAL HISTORY OF NICOTINE DEPENDENCE 06/28/2016 FREDDY GOINSRADHA Ot Z99.81 DEPENDENCE ON SUPPLEMENTAL OXYGEN 06/28/2016 FREDDY GOINS, RADHA Bianchi Ot E11.9 TYPE 2 DIABETES MELLITUS WITHOUT COMPLIC 06/28/2016 FREDDY GOINS, RADHA Bianchi Ot I11.0 HYPERTENSIVE HEART DISEASE WITH HEART FA 06/28/2016 FREDDY GOINS, RADHA Bianchi Ot I50.9 HEART FAILURE, UNSPECIFIED 06/28/2016 FREDDY GOINSRADHA Ot J44.9 CHRONIC OBSTRUCTIVE PULMONARY DISEASE , U 06/28/2016 FREDDY GOINSRADHA Ot J45.909 UNSPECIFIED ASTHMA, UNCOMPLICATED 06/28/2016 FREDDY GOINS, RADHA Bianchi Ot R19.04 LEFT LOWER QUADRANT ABDOMINAL SWELLING, 06/28/2016 FREDDY GOINSRADHA Ot R91.8 OTHER NONSPECIFIC ABNORMAL FINDING OF RUTH 06/28/2016 FREDDY GOINSRADHA Ot S22.31XA FRACTURE OF ONE RIB, RIGHT SIDE, INIT FO 06/28/2016 FREDDY GOINSRADHA Ot S27.321A CONTUSION OF LUNG, UNILATERAL, INITIAL E 06/28/2016 FREDDY GOINSRADHA Ot S32.019A UNSP FRACTURE OF FIRST LUMBAR VERTEBRA, 06/28/2016 FREDDY GOINSRADHA Ot W18.39XA OTHER FALL ON SAME LEVEL, INITIAL ENCOUN 06/28/2016 FREDDY GONISRADHA Ot Y92.[address] IN [facility] NON-[facility] ( PRIVATE 06/28/2016 FREDDY GOINSRADHA Ot Z79.4 WELT WHEELER (CURRENT) USE OF INSULIN 06/28/2016 FREDDY GOINSRADHA Ot Z87.891 PERSONAL HISTORY OF NICOTINE DEPENDENCE 06/28/2016 FREDDY GOINSRADHA Ot Z99.81 DEPENDENCE ON SUPPLEMENTAL OXYGEN 06/28/2016 FREDDY GOINSRADHA Ot E11.9 TYPE 2 DIABETES MELLITUS WITHOUT COMPLIC 06/28/2016 FREDDY GOINSRADHA Ot I11.0 HYPERTENSIVE HEART DISEASE WITH HEART FA 06/28/2016 FREDDY GOINSRADHA Ot I50.9 HEART FAILURE, UNSPECIFIED 06/28/2016 FREDDY GOINSRADHA Ot J44.9 CHRONIC OBSTRUCTIVE PULMONARY DISEASE , U 06/28/2016 FREDDY GOINSRADHA Ot J45.909 UNSPECIFIED ASTHMA, UNCOMPLICATED 06/28/2016 FREDDY GOINSRADHA Ot R19.04 LEFT LOWER QUADRANT ABDOMINAL SWELLING, 06/28/2016 FREDDY GOINSRADHA Ot R91.8 OTHER NONSPECIFIC ABNORMAL FINDING OF RUTH 06/28/2016 FREDDY GOINSRADHA Ot S22.31XA FRACTURE OF ONE RIB, RIGHT SIDE, INIT FO 06/28/2016 FREDDY GOINSRADHA Ot S27.321A CONTUSION OF LUNG, UNILATERAL, INITIAL E 06/28/2016 FREDDY GOINSRADHA Ot S32.019A UNSP FRACTURE OF FIRST LUMBAR VERTEBRA, 06/28/2016 FREDDY GOINSRADHA Ot W18.39XA OTHER FALL ON SAME LEVEL, INITIAL ENCOUN 06/28/2016 FREDDY GOINSRADHA Ot Y92.[address] IN [facility] ( PRIVATE 06/28/2016 FREDDY GOINSRADHA Ot Z79.4 RETIREMENT (CURRENT) USE OF INSULIN 06/28/2016 FREDDY GOINSRADHA Ot Z87.891 PERSONAL HISTORY OF NICOTINE DEPENDENCE 06/28/2016 FREDDY GOINSRADHA Ot Z99.81 DEPENDENCE ON SUPPLEMENTAL OXYGEN 06/28/2016 RFEDDY GOINSRADHA Ot E11.9 TYPE 2 DIABETES MELLITUS WITHOUT COMPLIC 06/28/2016 FREDDY GOINSRADHA Ot I11.0 HYPERTENSIVE HEART DISEASE WITH HEART FA 06/28/2016 FREDDY GOINSRADHA Ot I50.9 HEART FAILURE, UNSPECIFIED 06/28/2016 FREDDY GOINSRADHA Ot J44.9 CHRONIC OBSTRUCTIVE PULMONARY DISEASE , U 06/28/2016 FREDDY GOINSRADHA Ot J45.909 UNSPECIFIED ASTHMA, UNCOMPLICATED 06/28/2016 FREDDY GOINSRADHA Ot R19.04 LEFT LOWER QUADRANT ABDOMINAL SWELLING, 06/28/2016 FREDDY GOINSRADHA Ot R91.8 OTHER NONSPECIFIC ABNORMAL FINDING OF RUTH 06/28/2016 FREDDY GOINSRADHA Ot S22.31XA FRACTURE OF ONE RIB, RIGHT SIDE, INIT FO 06/28/2016 FREDDY GOINSRADHA Ot S27.321A CONTUSION OF LUNG, UNILATERAL, INITIAL E 06/28/2016 FREDDY GOINSRADHA Ot S32.019A UNSP FRACTURE OF FIRST LUMBAR VERTEBRA, 06/28/2016 FREDDY GOINSRADHA Ot W18.39XA OTHER FALL ON SAME LEVEL, INITIAL ENCOUN 06/28/2016 FREDDY GOINSRADHA Ot Y92.[address] IN [facility] ( PRIVATE 06/28/2016 MIGUEL ÁNGELALBERTO RADHA GOINS Ot Z79.4 RETIREMENT (CURRENT) USE OF INSULIN 06/28/2016 FREDDY GOINSRADHA Ot Z87.891 PERSONAL HISTORY OF NICOTINE DEPENDENCE 06/28/2016 FREDDY GOINS, RADHA Bianchi Ot Z99.81 DEPENDENCE ON SUPPLEMENTAL OXYGEN 06/29/2016 FREDDY GOINS, RADHA Bianchi Ot E11.9 TYPE 2 DIABETES MELLITUS WITHOUT COMPLIC 06/29/2016 FREDDY GOINSRADHA Ot I10 ESSENTIAL (PRIMARY) HYPERTENSION 06/29/2016 FREDDY GOINSRADHA Ot J44.9 CHRONIC OBSTRUCTIVE PULMONARY DISEASE , U 06/29/2016 FREDDY GOINS, RADHA Bianchi Ot J45.909 UNSPECIFIED ASTHMA, UNCOMPLICATED 06/29/2016 FREDDY GOINS, RADHA Bianchi Ot R19.04 LEFT LOWER QUADRANT ABDOMINAL SWELLING, 06/29/2016 FREDDY GOINSRADHA Ot R91.8 OTHER NONSPECIFIC ABNORMAL FINDING OF RUTH 06/29/2016 FREDDY GOINSRADHA Ot S22.31XA FRACTURE OF ONE RIB, RIGHT SIDE, INIT FO 06/29/2016 FREDDY GOINSRADHA Ot S27.321A CONTUSION OF LUNG, UNILATERAL, INITIAL E 06/29/2016 FREDDY GOINSRADHA Ot S32.019A UNSP FRACTURE OF FIRST LUMBAR VERTEBRA, 06/29/2016 FREDDY GOINSRADHA Ot W18.39XA OTHER FALL ON SAME LEVEL, INITIAL ENCOUN 06/29/2016 FREDDY GOINSRADHA Ot Y92.[address] IN [facility] ( PRIVATE 06/29/2016 FREDDY GOINSRADHA Ot Y99.8 OTHER EXTERNAL CAUSE STATUS 06/29/2016 FREDDY GOINSRADHA Ot Z79.4 RETIREMENT (CURRENT) USE OF INSULIN 06/29/2016 FREDDY GOINSRADHA Ot Z87.891 PERSONAL HISTORY OF NICOTINE DEPENDENCE 06/29/2016 FREDDY GOINSRADHA Ot Z99.81 DEPENDENCE ON SUPPLEMENTAL OXYGEN 07/04/2016 FREDDY GOINSRADHA Ot E11.9 TYPE 2 DIABETES MELLITUS WITHOUT COMPLIC 07/04/2016 FREDDY GOINSRADHA Ot I10 ESSENTIAL (PRIMARY) HYPERTENSION 07/04/2016 FREDDY GOINS, RDAHA Bianchi Ot J44.9 CHRONIC OBSTRUCTIVE PULMONARY DISEASE , U 07/04/2016 FREDDY GOINS, RADHA Bianchi Ot J45.909 UNSPECIFIED ASTHMA, UNCOMPLICATED 07/04/2016 FREDDY GOINS, RADHA Bianchi Ot R19.04 LEFT LOWER QUADRANT ABDOMINAL SWELLING, 07/04/2016 FREDDY GOINSRADHA Ot R91.8 OTHER NONSPECIFIC ABNORMAL FINDING OF RUTH 07/04/2016 FREDDY GOINSRADHA Ot S22.31XA FRACTURE OF ONE RIB, RIGHT SIDE, INIT FO 07/04/2016 FREDDY GOINSRADHA Ot S27.321A CONTUSION OF LUNG, UNILATERAL, INITIAL E 07/04/2016 FREDDY GOINSRADHA Ot S32.019A UNSP FRACTURE OF FIRST LUMBAR VERTEBRA, 07/04/2016 FREDDY GOINSRADHA Ot W18.39XA OTHER FALL ON SAME LEVEL, INITIAL ENCOUN 07/04/2016 FREDDY GOINSRADHA Ot Y92.[address] IN [facility] ( PRIVATE 07/04/2016 FREDDY GOINSRADHA Ot Y99.8 OTHER EXTERNAL CAUSE STATUS 07/04/2016 FREDDY GOINSRADHA Ot Z79.4 WELT WHEELER (CURRENT) USE OF INSULIN 07/04/2016 FREDDY GOINSRADHA Ot Z87.891 PERSONAL HISTORY OF NICOTINE DEPENDENCE 07/04/2016 FREDDY RADHA GOINS Ot Z99.81 DEPENDENCE ON SUPPLEMENTAL OXYGEN 07/30/2016 Ot 490 BRONCHITIS NOS 07/30/2016 Ot 496 CHR AIRWAY OBSTRUCT NEC 07/30/2016 Ot 780.79 OTH MALAISE FATIGUE 07/30/2016 Ot 783.1 ABNORMAL WEIGHT GAIN 07/30/2016 Ot V72.84 EXAM PRE-OPERATIVE NOS 07/30/2016 FREDDY RADHA GOINS Ot E11.9 TYPE 2 DIABETES MELLITUS WITHOUT COMPLIC 07/30/2016 RADHA HAYES DO Ot J44.9 CHRONIC OBSTRUCTIVE PULMONARY DISEASE , U 07/30/2016 Ot I50.9 HEART FAILURE, UNSPECIFIED 07/30/2016 Ot J44.9 CHRONIC OBSTRUCTIVE PULMONARY DISEASE, U 07/30/2016 MIGUEL ÁNGELMAGDAMADELINE RADHA GOINS Ot M79.89 OTHER SPECIFIED SOFT TISSUE DISORDERS 07/30/2016 RADHA HAYES DO Ot R05 COUGH 07/30/2016 OCHOAMADELINE RADHA GOINS Ot R06.02 SHORTNESS OF BREATH 07/30/2016 RADHA HAYES DO Ot R06.2 WHEEZING 07/30/2016 RADHA HAYES DO Ot J44.9 CHRONIC OBSTRUCTIVE PULMONARY DISEASE , U 08/05/2016 GELMAGDADER DO, RADHA Bianchi Ot D72.829 ELEVATED WHITE BLOOD CELL COUNT, UNSPECI 08/05/2016 GELLENDER DO, RADHA Bianchi Ot E11.65 TYPE 2 DIABETES MELLITUS WITH HYPERGLYCE 08/05/2016 MIGUEL ÁNGELLENDER DO, RADHA Bianchi Ot E66.9 OBESITY, UNSPECIFIED 08/05/2016 MIGUEL ÁNGELLENDER DO, RADHA Bianchi Ot F32.9 MAJOR DEPRESSIVE DISORDER, SINGLE EPISOD 08/05/2016 MIGUEL ÁNGELLENDER DO, RADHA Bianchi Ot G47.9 SLEEP DISORDER, UNSPECIFIED 08/05/2016 GELLENDER DO, RADHA Bianchi Ot I10 ESSENTIAL (PRIMARY) HYPERTENSION 08/05/2016 GELLENDER DO, RADHA Bianchi Ot J32.9 CHRONIC SINUSITIS, UNSPECIFIED 08/05/2016 GELLENDER DO, RADHA Bianchi Ot J44.1 CHRONIC OBSTRUCTIVE PULMONARY DISEASE W 08/05/2016 OCHOADER DO, RADHA Bianchi Ot J45.909 UNSPECIFIED ASTHMA, UNCOMPLICATED 08/05/2016 OCHOADER , RADHA Bianchi Ot K21.9 GASTRO-ESOPHAGEAL REFLUX DISEASE WITHOUT 08/05/2016 GELLENDER DORADHA Ot K59.00 CONSTIPATION, UNSPECIFIED 08/05/2016 GELLENDER DORADHA Ot M19.90 UNSPECIFIED OSTEOARTHRITIS, UNSPECIFIED 08/05/2016 GELLENDER DO, RADHA Bianchi Ot R09.02 HYPOXEMIA 08/05/2016 OCHOADER RADHA Ot T38.0X5A ADVERSE EFFECT OF GLUCOCORT/SYNTH ANALOG 08/05/2016 OCHOADER DO, RADHA Bianchi Ot Z68.32 BODY MASS INDEX (BMI) 32.0-32.9, ADULT 08/05/2016 FREDDY GOINSRADHA Ot Z79.4 WELT WHEELER (CURRENT) USE OF INSULIN 08/05/2016 OCHOADER DORADHA Ot Z87.891 PERSONAL HISTORY OF NICOTINE DEPENDENCE 09/17/2016 FREDDY DO, RADHA Bianchi Ot E11.65 TYPE 2 DIABETES MELLITUS WITH HYPERGLYCE 09/17/2016 OCHOADER DO, RADHA Bianchi Ot E66.9 OBESITY, UNSPECIFIED 09/17/2016 GELLENDER DO, RADHA Bianchi Ot I10 ESSENTIAL (PRIMARY) HYPERTENSION 09/17/2016 GELMAGDADER DO, RADHA Bianchi Ot J44.1 CHRONIC OBSTRUCTIVE PULMONARY DISEASE W 09/17/2016 GELLENDER DO, RADHA Bianchi Ot J45.909 UNSPECIFIED ASTHMA, UNCOMPLICATED 09/17/2016 FREDDY RADHA GOINS Ot J81.1 CHRONIC PULMONARY EDEMA 09/17/2016 OCHOADER RADHA GOINS Ot K21.9 GASTRO-ESOPHAGEAL REFLUX DISEASE WITHOUT 09/17/2016 GELLENDER DORADHA Ot K59.09 OTHER CONSTIPATION 09/17/2016 FREDDY RADHA GOINS Ot R60.0 LOCALIZED EDEMA 09/17/2016 GELLENDER RADHA GOINS Ot T49.0X5A ADVERSE EFFECT OF LOCAL ANTIFUNG/ INFECT/ 09/17/2016 FREDDY RADHA GOINS Ot Z68.32 BODY MASS INDEX (BMI) 32.0-32.9, ADULT 09/17/2016 FREDDY RADHA GOINS Ot Z79.4 WELT WHEELER (CURRENT) USE OF INSULIN 09/17/2016 FREDDY RADHA GOINS Ot Z87.891 PERSONAL HISTORY OF NICOTINE DEPENDENCE 09/30/2016 Ot 490 BRONCHITIS NOS 09/30/2016 Ot 496 CHR AIRWAY OBSTRUCT NEC 09/30/2016 Ot 780.79 OTH MALAISE FATIGUE 09/30/2016 Ot 783.1 ABNORMAL WEIGHT GAIN 09/30/2016 Ot V72.84 EXAM PRE-OPERATIVE NOS 09/30/2016 FREDDY RADHA GOINS Ot E11.9 TYPE 2 DIABETES MELLITUS WITHOUT COMPLIC 09/30/2016 OCHOADER RADHA GOINS Ot J44.9 CHRONIC OBSTRUCTIVE PULMONARY DISEASE , U 09/30/2016 Ot I50.9 HEART FAILURE, UNSPECIFIED 09/30/2016 Ot J44.9 CHRONIC OBSTRUCTIVE PULMONARY DISEASE, U 09/30/2016 MIGUEL ÁNGELLENDER DORADHA Ot M79.89 OTHER SPECIFIED SOFT TISSUE DISORDERS 09/30/2016 OCHOARADHA CORREA DO Ot R05 COUGH 09/30/2016 GELLENDER RADHA GOINS Ot R06.02 SHORTNESS OF BREATH 09/30/2016 OCHOADER RADHA GOINS Ot R06.2 WHEEZING 09/30/2016 MIGUEL ÁNGELLENDER RADHA GOINS Ot J44.9 CHRONIC OBSTRUCTIVE PULMONARY DISEASE , U 10/03/2016 MIGUEL ÁNGELMAGDADER RADHA GOINS Ot E11.65 TYPE 2 DIABETES MELLITUS WITH HYPERGLYCE 10/03/2016 OCHOADER RADHA GOINS Ot E11.9 TYPE 2 DIABETES MELLITUS WITHOUT COMPLIC 10/03/2016 MIGUEL ÁNGELLENDER RADHA GOINS Ot F17.210 NICOTINE DEPENDENCE, CIGARETTES, UNCOMPL 10/03/2016 GELLENDER DO, RADHA Bianchi Ot F32.9 MAJOR DEPRESSIVE DISORDER, SINGLE EPISOD 10/03/2016 GELLENDER DO, RADHA Bianchi Ot F41.9 ANXIETY DISORDER, UNSPECIFIED 10/03/2016 GELLENDER DO, RADHA Bianchi Ot G25.81 RESTLESS LEGS SYNDROME 10/03/2016 GELLENDER DO, RADHA Bianchi Ot G47.9 SLEEP DISORDER, UNSPECIFIED 10/03/2016 GELLENDER DO, RADHA Bianchi Ot G89.29 OTHER CHRONIC PAIN 10/03/2016 GELLENDER DO, RADHA Bianchi Ot I11.0 HYPERTENSIVE HEART DISEASE WITH HEART FA 10/03/2016 GELLENDER DO, RADHA Bianchi Ot I50.9 HEART FAILURE, UNSPECIFIED 10/03/2016 GELLENDER DO, RADHA Bianchi Ot J44.1 CHRONIC OBSTRUCTIVE PULMONARY DISEASE W 10/03/2016 GELLENDER DO, RADHA Bianchi Ot J45.909 UNSPECIFIED ASTHMA, UNCOMPLICATED 10/03/2016 GELLENDER DO, RADHA Bianchi Ot K21.9 GASTRO-ESOPHAGEAL REFLUX DISEASE WITHOUT 10/03/2016 GELLENDER DO, RADHA Bianchi Ot M54.9 DORSALGIA, UNSPECIFIED 10/03/2016 GELLENDER DO, RADHA Bianchi Ot T49.0X5A ADVERSE EFFECT OF LOCAL ANTIFUNG/ INFECT/ 10/03/2016 GELLENDER DO, RADHA Bianchi Ot Z79.4 WELT WHEELER (CURRENT) USE OF INSULIN 10/03/2016 GELLENDER DO, RADHA Bianchi Ot E11.65 TYPE 2 DIABETES MELLITUS WITH HYPERGLYCE 10/03/2016 GELLENDER DO, RADHA Bianchi Ot E11.9 TYPE 2 DIABETES MELLITUS WITHOUT COMPLIC 10/03/2016 GELLENDER DO, RADHA Bianchi Ot F17.210 NICOTINE DEPENDENCE, CIGARETTES, UNCOMPL 10/03/2016 GELLENDER DO, RADHA Bianchi Ot F32.9 MAJOR DEPRESSIVE DISORDER, SINGLE EPISOD 10/03/2016 GELLENDER DO, RADHA Bianchi Ot F41.9 ANXIETY DISORDER, UNSPECIFIED 10/03/2016 GELLENDER DO, RADHA Bianchi Ot G25.81 RESTLESS LEGS SYNDROME 10/03/2016 GELLENDER DO, RADHA Bianchi Ot G47.9 SLEEP DISORDER, UNSPECIFIED 10/03/2016 GELLENDER DO, RADHA Bianchi Ot G89.29 OTHER CHRONIC PAIN 10/03/2016 GELLENDER DO, RADHA Bianchi Ot I11.0 HYPERTENSIVE HEART DISEASE WITH HEART FA 10/03/2016 GELLENDER DO, RADHA Bianchi Ot I11.9 HYPERTENSIVE HEART DISEASE WITHOUT HEART 10/03/2016 GELLENDER DO, RADHA Bianchi Ot I50.9 HEART FAILURE, UNSPECIFIED 10/03/2016 GELLENDER DO, RADHA Bianchi Ot J44.1 CHRONIC OBSTRUCTIVE PULMONARY DISEASE W 10/03/2016 GELLENDER DO, RADHA Bianchi Ot J45.909 UNSPECIFIED ASTHMA, UNCOMPLICATED 10/03/2016 GELLENDER DO, RADHA Bianchi Ot K21.9 GASTRO-ESOPHAGEAL REFLUX DISEASE WITHOUT 10/03/2016 GELLENDER DO, RADHA Bianchi Ot M54.9 DORSALGIA, UNSPECIFIED 10/03/2016 GELLENDER DO, RADHA Bianchi Ot M79.89 OTHER SPECIFIED SOFT TISSUE DISORDERS 10/03/2016 GELLENDER DO, RADHA Bianchi Ot R60.0 LOCALIZED EDEMA 10/03/2016 GELLENDER DO, RADHA Bianchi Ot T46.5X5A ADVERSE EFFECT OF OTHER ANTIHYPERTENSIVE 10/03/2016 GELLENDER DO, RADHA Bianchi Ot T49.0X5A ADVERSE EFFECT OF LOCAL ANTIFUNG/ INFECT/ 10/03/2016 GELLENDER DO, RAHDA Bianchi Ot Z79.4 WELT WHEELER (CURRENT) USE OF INSULIN 12/01/2016 GELLENDER DO, RADHA Bianchi Ot E11.9 TYPE 2 DIABETES MELLITUS WITHOUT COMPLIC 12/01/2016 GELLENDER DO, RADHA Bianchi Ot F32.9 MAJOR DEPRESSIVE DISORDER, SINGLE EPISOD 12/01/2016 GELLENDER DO, RADHA Bianchi Ot F41.9 ANXIETY DISORDER, UNSPECIFIED 12/01/2016 GELLENDER DO, RADHA Bianchi Ot G89.4 CHRONIC PAIN SYNDROME 12/01/2016 GELLENDER DO, RADHA Bianchi Ot I10 ESSENTIAL (PRIMARY) HYPERTENSION 12/01/2016 GELLENDER DO, RADHA Bianchi Ot J44.1 CHRONIC OBSTRUCTIVE PULMONARY DISEASE W 12/01/2016 GELLENDER DO, RADHA Bianchi Ot K21.9 GASTRO-ESOPHAGEAL REFLUX DISEASE WITHOUT 12/01/2016 GELLENDER DO, RADHA Bianchi Ot M19.90 UNSPECIFIED OSTEOARTHRITIS, UNSPECIFIED 12/01/2016 GELLENDER DO, RADHA Bianchi Ot Z79.4 RETIREMENT (CURRENT) USE OF INSULIN 12/01/2016 GELLENDER DO, RADHA Bianchi Ot Z87.891 PERSONAL HISTORY OF NICOTINE DEPENDENCE 12/01/2016 GELLENDER DO, RADHA Bianchi Ot Z99.81 DEPENDENCE ON SUPPLEMENTAL OXYGEN Procedures Encounters ACCT No. Visit Date/Time Discharge Status Pt. Type Provider Facility Loc./Unit Complaint [id number] 11/28/2016 21:40:00 2016 12:30:00 DIS Outpatient OCHOAMADELINE RADHA GOINS Tash [facility] 4TH COPD EXACERBATION [id number] 09/30/2016 00:33:00 2016 09:45:00 DIS Inpatient MIGUEL ÁNGELALBERTO GOINSRADHA Tash [address] COPD EXACERBATION; CHF [id number] 09/11/2016 11:31:00 2016 14:30:00 DIS Inpatient OCHOAMADELINE RADHA GOINS Tash [facility] [address] COPD ACUTE EXACERBATION HYPOXIA [id number] 07/30/2016 17:54:00 2015 11:55:00 DIS Inpatient MIGUEL ÁNGELALBERTO GOINS RADHA Tash [facility] [address] COPD W/ ACUTE EXACERBATION [id number] 06/27/2016 13:45:00 2015 14:07:00 DIS Inpatient FREDDY GOINS RADHA Tash [facility] [address] RT L1 TRANSVERSE PROCESS FRACTURE RT 10TH RIB FX [id number] 11/13/2015 12:16:00 2015 13:11:00 DIS Inpatient FREDDY GOINS RADHA Tash [facility] [address] PNEUMONIA COPD EXACERBATION HYPOXIA [id number] 08/05/2015 20:11:00 2014 22:25:00 DIS Emergency KAIT BUTCHER MD [facility] ER CP [id number] 06/28/2015 16:54:00 2014 23:59:59 CLS Outpatient RADHA HAYES DO [facility] LAB COPD [id number] 09/26/2014 06:59:00 2014 10:10:00 DIS Outpatient BERTHA BETHEA MD [facility] SDC POSITIVE OCCULT BLOOD IN STOOLS [id number] 09/13/2014 11:57:00 2014 13:33:00 DIS Emergency KAIT BUTCHER MD [facility] ER SOA/DIZZINESS [id number] 08/20/2013 18:00:00 2013 13:35:00 DIS Inpatient RADHA HAYES DO [facility] 4TH DYSPNEA,PNEUMONIA [id number] 04/25/2016 11:59:00 ACT Outpatient RADHA HAYES DO [facility] RAD COPD,COUGH,INCREASED TEMPERATURE [id number] 10/09/2015 10:26:00 ACT Outpatient RADHA HAYES DO [facility] RAD SOB,COUGHING,WHEEZING,FOOT SWELLING [id number] 09/21/2015 10:36:00 Document Registration [id number] 09/13/2014 11:58:00 Document Registration [id number] 07/27/2012 15:07:00 Document Registration [id number] 07/13/2012 16:44:00 Document Registration [id number] 05/27/2012 12:43:00 Document Registration [id number] 05/26/2012 07:59:00 Document Registration [id number] 03/06/2012 17:04:00 Document Registration [id number] 11/04/2011 16:31:00 Document Registration [id number] 10/17/2011 13:32:00 Document Registration [id number] 07/15/2011 11:41:00 Document Registration [id number] 03/04/2011 05:20:00 Document Registration [id number] 02/04/2011 16:14:00 Document Registration
--- OUTSIDE RECORDS SUMMARY | 2016-12-30 00:35 | XMS REPORT | Continuity of Care Document ---
Author Author [facility] Organization [facility] Address Unknown Phone Unavailable Allergies Active Description Code Type Severity Reaction Onset Reported/Identified Relationship to Patient Clinical Status Yes enalapril [id number] Drug Allergy Severe ANAPHYLAXIS 08/22/2013 Medications Problems [...] BENIGN NEOPLASM LG BOWEL 09/26/2014 [place], BETRHA Handley Ot 250.00 DIAB BG WO COMPL, [...] 08/05/2015 KAIT BUTCHER MD Ot Z79.899 OTHER LONGTERM (CURRENT) DRUG THERAPY 08/05/2015 KAIT BUTCHER MD [...] GOINSRADHA Ot Y92.[address] IN [facility] NON-INSTITUT ( PRIVATE 06/28/2016 FREDDY GOINSRADHA Ot Z79.4 LONGTERM (CURRENT) USE OF INSULIN 06/28/2016 FREDDY GOINSRADHA [...] GOINSRADHA Ot Y92.[address] IN [facility] NON-INSTITUT ( PRIVATE 06/28/2016 FREDDY GOINSRADHA Ot 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 06/28/2016 FREDDY GOINSRADHA [...] Ot Y92.[address] [facility] 06/28/2016 FREDDY GOINSRADHA Ot Z79.4 LONGTERM (CURRENT) USE OF INSULIN 06/28/2016 FREDDY GOINSRADHA [...] Ot Y92.[address] [facility] ( [facility] 06/28/2016 MIGUEL ÁNGELALBERTO RADHA GOINS Ot Z79.4 LONGTERM (CURRENT) USE OF INSULIN 06/28/2016 FREDDY GOINSRADHA [...] J45.909 UNSPECIFIED ASTHMA, UNCOMPLICATED 06/29/2016 FREDDY GOINS, RAHDA Bianchi Ot R19.04 LEFT LOWER QUADRANT ABDOMINAL [...] CAUSE STATUS 06/29/2016 FREDDY GOINSRADHA Ot Z79.4 LONGTERM (CURRENT) USE OF INSULIN 06/29/2016 FREDDY GOINSRADHA Ot Z87.891 PERSONAL HISTORY OF NICOTINE DEPENDENCE 06/29/2016 FREDDY GOINSRADHA Ot Z99.81 DEPENDENCE ON SUPPLEMENTAL OXYGEN 07/04/2016 FREDDY GOINSRADHA Ot E11.9 TYPE 2 DIABETES MELLITUS WITHOUT COMPLIC 07/04/2016 FREDDY GOINSRADHA Ot I10 ESSENTIAL (PRIMARY) HYPERTENSION 07/04/2016 FREDDY GOINS, RADHA Bianchi Ot J44.9 CHRONIC [...] CAUSE STATUS 07/04/2016 FREDDY GOINSRADHA Ot 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 07/04/2016 FREDDY GOINSRADHA [...] 32.0-32.9, ADULT 08/05/2016 FREDDY GOINSRADHA Ot 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 08/05/2016 OCHOADER DORADHA [...] J45.909 UNSPECIFIED ASTHMA, UNCOMPLICATED 09/17/2016 FREDDY RADHA GONIS Ot J81.1 CHRONIC PULMONARY EDEMA 09/17/2016 OCHOADER RADHA GOINS Ot K21.9 GASTRO-ESOPHAGEAL REFLUX DISEASE WITHOUT 09/17/2016 GELLENDER DORADHA Ot K59.09 OTHER CONSTIPATION 09/17/2016 FREDDY RADHA GOINS Ot R60.0 LOCALIZED EDEMA 09/17/2016 GELLENDER RADHA GOINS Ot T49.0X5A ADVERSE EFFECT OF LOCAL ANTIFUNG/ INFECT/ 09/17/2016 FREDDY RADHA GOINS Ot Z68.32 BODY MASS INDEX (BMI) 32.0-32.9, ADULT 09/17/2016 FREDDY RADHA GOINS Ot 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 Visit Date/Time Discharge Status Pt. Type Provider Facility Loc./Unit Complaint [id number] 11/28/2016 21:40:00 2016 12:30:00 DIS Outpatient OCHOAMADELINE RADHA GOINS Tash [facility] 4TH COPD EXACERBATION [id number] 09/30/2016 00:33:00 2016 09:45:00 DIS Inpatient MIGUEL ÁNGELALBERTO GOINSRADHA Tash Via [address] COPD EXACERBATION; CHF [id number] 09/11/2016 11:31:00 2016 14:30:00 DIS Inpatient OCHOAMADELINE RADHA GOINS Tash Via [address] COPD ACUTE EXACERBATION HYPOXIA [id number] 07/30/2016 17:54:00 2015 11:55:00 DIS Inpatient MIGUEL ÁNGELALBERTO GOINS RADHA Tash Via [address] COPD W/ ACUTE EXACERBATION [id number] 06/27/2016 13:45:00 2015 14:07:00 DIS Inpatient FREDDY GOINS RADHA Tash Via [address] RT L1 TRANSVERSE PROCESS FRACTURE RT 10TH RIB FX [id number] 11/13/2015 12:16:00 2015 13:11:00 DIS Inpatient FREDDY GOINS RADHA Tash Via [address] PNEUMONIA COPD EXACERBATION HYPOXIA [id number] 08/05/2015 20:11:00 2014 22:25:00 DIS Emergency KAIT BUTCHER MD [facility] ER CP [id number] 06/28/2015 16:54:00 2014 23:59:59 CLS Outpatient RADHA HAYES DO [facility] LAB COPD [id number] 09/26/2014 06:59:00 2014 10:10:00 DIS Outpatient BERTHA BETHEA MD [facility] SDC POSITIVE OCCULT BLOOD IN STOOLS [id number] 09/13/2014 11:57:00 2014 13:33:00 DIS Emergency KAIT BUTCHER MD [facility] ER SOA/DIZZINESS [id number] 08/20/2013 18:00:00 2013 13:35:00 DIS Inpatient RADHA HAYES DO [facility] 4TH DYSPNEA,PNEUMONIA [id number] 04/25/2016 11:59:00 ACT Outpatient RADHA HAYES DO [facility] RAD COPD,COUGH,INCREASED TEMPERATURE [id number] 10/09/2015 10:26:00 ACT Outpatient RADHA HAYES DO [facility] RAD SOB,COUGHING,WHEEZING,FOOT SWELLING [id number] 09/21/2015 10:36:00 Document Registration [id number] 09/13/2014 11:58:00 Document Registration [id number] 07/27/2012 15:07:00 Document Registration [id number] 07/13/2012 16:44:00 Document Registration [id number] 05/27/2012 12:43:00 Document Registration [id number] 05/26/2012 07:59:00 Document Registration [id number] 03/06/2012 17:04:00 Document Registration [id number] 11/04/2011 16:31:00 Document Registration [id number] 10/17/2011 13:32:00 Document Registration [id number] 07/15/2011 11:41:00 Document Registration [id number] 03/04/2011 05:20:00 Document Registration [id number] 02/04/2011 16:14:00 Document Registration
== END 2016-12-01 09:51 | disposition home or self-care (01) ==
LOC: EDUNIT# 17:54 → ER 17:55 → UNDOADMOB 20:52 → 4TH 20:52
PROVIDERS: ADMIT Family Medicine; ATTEND Family Medicine
DX: J44.1 Chronic obstructive pulmonary disease with (acute) exacerbation (principal); I10 Essential (primary) hypertension; E11.9 Type 2 diabetes mellitus without complications; Z99.81 Dependence on supplemental oxygen; F32.9 Major depressive disorder, single episode, unspecified; F41.9 Anxiety disorder, unspecified; G89.4 Chronic pain syndrome; M19.90 Unspecified osteoarthritis, unspecified site; K21.9 Gastro-esophageal reflux disease without esophagitis; Z79.4 Long term (current) use of insulin; Z87.891 Personal history of nicotine dependence
CPT/HCPCS: 36415; 71020; 80053; 82962; 83880; 85025; 86141; 87804; 94640; 94664; 94760; 96374; G0378

== ENCOUNTER → 2017-07-28 | Outpatient (CLI) | payer MEDICARE ==
[~2017-07-28] MED LIST changes: +ALPR0.254 PO; -NAPR500T3 PO; +NAPR500T4 PO
--- NOTE | 2017-07-28 20:11 | Diagnostic Imaging Report ---
EXAMINATION: Three views of the cervical spine. INDICATION: Numbness and tingling in the right arm. FINDINGS: There is slight right lateral flexion in the cervical spine, which could be positional. There is minimal posterior translation of C5 over C6. The C5/C6 disc demonstrates moderate height loss and prominent anterior osteophytes with a suggestion of small posterior osteophytes. There is also multilevel facet arthropathy suggested with sclerosis seen. The alignment of the lateral masses of C1 and C2 appear unremarkable. IMPRESSION: Degenerative changes, most prominent at C5/C6 disc level. Dictated by: Dictated on workstation # [id number]
--- NOTE | 2017-07-28 22:19 | Diagnostic Imaging Report ---
Bilateral screening mammogram 2D views with tomosynthesis The current study was also evaluated with a Computer Aided Detection (CAD) system. INDICATION: Screening. No current complaints stated on the questionnaire. COMPARISON: 06/09/2006. FINDINGS: The breasts are composed of scattered fibroglandular densities. There are scattered benign-appearing calcifications. No mass, architectural distortion, or suspicious cluster of calcifications seen. Allowing for technique and positional differences, no suspicious change is seen. IMPRESSION: No significant change. ACR BI-RADS Category 2: Benign findings. Result letter will be mailed to the patient. Note: At least 10% of breast cancer is not imaged by mammography. Dictated by: Dictated on workstation # [id number]
== END ==
LOC: RAD 10:08
PROVIDERS: ATTEND Family Medicine
DX: Z12.31 Encounter for screening mammogram for malignant neoplasm of breast (principal); M47.812 Spondylosis without myelopathy or radiculopathy, cervical region
CPT/HCPCS: 72040; 77067

== ENCOUNTER 2017-08-13 18:14 | Inpatient (IN) | payer MEDICARE ==
[~2017-08-13] VITALS: Ht 175.3 cm; Wt 98.9 kg
[2017-08-13] MEDS ORDERED: RT-ALBUTEROL/IPRATROPIUM 3 ML (DUONEB) VIAL ONE (19:26)
[2017-08-13] MEDS ORDERED: RT-ALBUTEROL SULF 2.5 MG/3 ML PRE-MIX VIAL INH ONE (19:26)
[2017-08-13] MEDS ORDERED: RT-ALBUTEROL/IPRATROPIUM 3 ML (DUONEB) VIAL INH ONE (19:30)
[2017-08-13] MEDS ORDERED: RT-ALBUTEROL SULF 2.5 MG/3 ML PRE-MIX VIAL INH STA (19:30)
[2017-08-13 19:36] LABS: BASOPHILS % (AUTO) 0 % (0-10); EOSINOPHILS # (AUTO) 0.2 10^3/uL (0.0-0.3); EOSINOPHILS % (AUTO) 1 % (0-10); LYMPHOCYTES # (AUTO) 1.3 X 10^3 (1.0-4.0); LYMPHOCYTES % (AUTO) 11 % (12-44); MEAN CORPUSCULAR HEMOGLOBIN 26 PG (25-34); MEAN CORPUSCULAR HGB CONC 30 G/DL (32-36); MEAN CORPUSCULAR VOLUME 85 FL (80-99); MONOCYTES # (AUTO) 0.6 X 10^3 (0.0-1.0); MONOCYTES % (AUTO) 5 % (0-12); NEUTROPHILS # (AUTO) 9.3 X 10^3 (1.8-7.8); NEUTROPHILS % (AUTO) 82 % (42-75); PLATELET COUNT 342 10^3/uL (130-400); RED BLOOD COUNT 3.81 10^6/uL (4.35-5.85); RED CELL DISTRIBUTION WIDTH 15.5 % (10.0-14.5); WHITE BLOOD COUNT 11.4 10^3/uL (4.3-11.0)
--- NOTE | 2017-08-13 19:36 | ED Respiratory ---
General Chief Complaint: Respiratory Problems Stated Complaint: COPD;SOA Nursing Triage Note: PT STATES SHE HAS BEEN SOB FOR 4-5 DAYS, HX OF COPD AND ASTHMA. PT FELL 2 NIGHTS AGO AND HIT HER BACK AND HEAD, NOT SURE IF SHE HAD ANY LOC. Source: patient Exam Limitations: no limitations History of Present Illness Time seen by provider: 19:28 Initial Comments Patient presents to ER by private conveyance with chief complaint that the past 3 days she presently had more shortness of breath or wheezing. She also has had swelling in her feet. She has a history of COPD as well as heart failure. She tried getting in with Dr. Hayes prior to be seen and he sent her to the ER since she is having hard time breathing. She came in on her home oxygen of 4 L per nasal cannula at 90% and so nursing bumped her 5 L where she stayed in the mid 90s. She has not been coughing any more than usual or having any phlegm. She has no fever or chills or rash. She has no nausea vomiting chest pain or diarrhea. She is not been on steroids since 6 months ago. She takes breathing treatments albuterol home by nebulizer and her last one was this morning. She is having some back pain in her low back after a fall last night when she says she thinks she passed out. She thinks she hit her head and she also notes that she landed on her low back and had quite a swelling there. She feels the swelling is better today than yesterday. She's had no incontinence, weakness, falls, numbness, paresthesias, saddle anesthesia. Allergies and Home Medications Allergies Coded Allergies: enalapril (Verified Allergy, Severe, ANAPHYLAXIS, 08/22/13) Home Medications Albuterol Sulfate 2.5 Mg/3 Ml Vial.neb, 2.5 MG NEB Q4H PRN for SHORTNESS OF BREATH, (Reported) Alprazolam 0.25 Mg Tablet, 0.25 MG PO DAILY PRN for ANXIETY, (Reported) Amlodipine Besylate 10 Mg Tablet, 10 MG PO DAILY, (Reported) Atorvastatin Calcium 10 Mg Tablet, 10 MG PO HS, (Reported) Budesonide/Formoterol Fumarate 10.2 Gm Hfa.aer.ad, 2 PUFF IH BID, (Reported) Furosemide 40 Mg Tablet, 40 MG PO DAILY, (Reported) Gabapentin 300 Mg Capsule, 300 MG PO BID, (Reported) Glimepiride 4 Mg Tablet, 8 MG PO DAILY, (Reported) TAKES 2 (4 MG) TABLETS Hydrocodone/Acetaminophen 1 Each Tablet, 1 TAB PO QID PRN for PAIN, (Reported) Insulin Aspart 300 Units/3 Ml Solution, SQ AC PRN for SLIDING SCALE BS ABOVE 200 , (Reported) Insulin Detemir 100 Unit/1 Ml Insuln.pen, 25 UNIT SQ DAILY@1100, (Reported) Metformin HCl 500 Mg Tablet, 1,000 MG PO BID, (Reported) TAKES 2 (500MG) TABLETS Multivit-Min/FA/Lycopene/Lut 1 Each Tablet, 1 TAB PO DAILY, (Reported) Naproxen 500 Mg Tablet, 500 MG PO BID, (Reported) [place]-3/Dha/Epa/Fish Oil 1 Each Capsule, 1,000 MG PO DAILY, (Reported) Potassium Chloride 10 Meq Capsule.er, 10 MEQ PO HS, (Reported) Pramipexole Di-HCl 1 Mg Tablet, 1 MG PO HS, (Reported) Prednisone 10 Mg Tab, 10 MG PO BID for 3 Days, #6 Prescribed by: GAUDENCIO FAJARDO on 01/16/17 1044 Prednisone 10 Mg Tab, 10 MG PO DAILY for 3 Days, #3 Take 2 tabs BID for 3 days and then take one tab daily for 3 days. Prescribed by: GAUDENCIO FAJARDO on 01/16/17 104 Sertraline HCl 50 Mg Tablet, 50 MG PO HS, (Reported) Tiotropium [place] 4 Gm Mist.inhal, 2 PUFF IH DAILY, (Reported) Constitutional: No chills, No diaphoresis, No fever, malaise EENTM: No ear discharge, No ear pain, No eye pain, No nose pain, No throat pain Respiratory: cough, dyspnea on exertion, No hemoptysis, No phlegm, short of breath, wheezing Cardiovascular: No chest pain, No palpitations, syncope Gastrointestinal: No abdominal pain, No constipation, No diarrhea, No nausea, No vomiting Genitourinary: No discharge, No dysuria Musculoskeletal: see HPI, back pain Skin: No pruritus, No rash Psychiatric/Neurological: Denies Headache, Denies Numbness, Denies Paresthesia Past Nuvxysj-Ftbkzf-Qqidal Hx Patient Social History Alcohol Use: Denies Use Recreational Drug Use: No Smoking Status: Former Smoker Type Used: Cigarettes Former Smoker, Quit: Jul 30, 2012 2nd Hand Smoke Exposure: Yes Recent Foreign Travel: No Contact w/Someone Who Travel: No Recent Infectious Disease Expo: No Recent Hopitalizations: Yes (02/2017) Physical Abuse: No Sexual Abuse: No Mistreated: No Fear: No Immunizations Up To Date Tetanus Booster (TDap): More than 5yrs PED Vaccines UTD: No Date of Pneumonia Vaccine: May 21, 2013 Date of Influenza Vaccine: May 28, 2017 Seasonal Allergies Seasonal Allergies: Yes Surgeries History of Surgeries: Yes (TOTAL right hip, carpul tunnel bilat, LEFT KNEE SX, RIGHT ANKLE) Surgeries: Gallbladder, Joint Replacement, Orthopedic Respiratory History of Respiratory Disorde: Yes Respiratory Disorders: Asthma, Pneumonia, Chronic Bronchitis, COPD Currently Using CPAP: No Currently Using BIPAP: No Cardiovascular History of Cardiac Disorders: Yes Cardiac Disorders: Chronic Edema/Swelling, Hypertension Neurological History of Neurological Disord: Yes Neurological Disorders: Neuropathy 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 System Hx 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 Disorders: No Sexually Transmitted Disease: No HIV/AIDS: No Female 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 Disorders: Denies 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 Genitourinary History of Genitourinary Disor: No Gastrointestinal History of Gastrointestinal Di: Yes Gastrointestinal Disorders: Gastroesophageal Reflux, Chronic Constipation, Diverticulosis, Hemorrhoids, Polyps, Hiatal Hernia, Gall Bladder Disease Musculoskeletal History of Musculoskeletal Dis: Yes Musculoskeletal Disorders: Degenerate Disk Disease, Arthritis, Chronic Back Pain Endocrine History of Endocrine Disorders: Yes Endocrine Disorders: Diabetes, Insulin dep HEENT History of HEENT Disorders: No HEENT Disorders: Cataract Loss of Vision: Denies Hearing Impairment: Denies Cancer History of Cancer: No Psychosocial History of Psychiatric Problem: Yes Behavioral Health Disorders: Sleep Difficulties, Anxiety, Depression Suicide Risk Score: 0 Integumentary History of Skin or Integumenta: No Blood Transfusions History of Blood Disorders: No Family Medical History Significant Family History: Heart Disease, COPD, Hypertension, Lung Disease Family Medial History: Completed stroke 09 BROTHER Family history: Asthma 03 MOTHER History of - respiratory disease 03 FATHER (PNEUMONIA) 03 MOTHER (ASTHMA, COPD) Physical Exam Vital Signs Vital Sign - Last 12Hours 08/13/17 19:07 Temp 97.8 Pulse 99 Resp 22 B/P (MAP) 149/87 (107) Pulse Ox 94 O2 Delivery Nasal Cannula O2 Flow Rate 4.00 Capillary Refill : Less Than 3 Seconds General Appearance: WD/WN, moderate distress Eyes: Bilateral Eye Normal Inspection, Bilateral Eye PERRL, Bilateral Eye EOMI HEENT: PERRL/EOMI, normal ENT inspection, TMs normal, pharynx normal Neck: non-tender, supple, normal inspection Respiratory: chest non-tender, respiratory distress (mild), decreased breath sounds, No rales, wheezing (few bilaterally) Cardiovascular: normal peripheral pulses, regular rate, rhythm, no JVD, no murmur, other (bilateral pedal edema 1+) Gastrointestinal: normal bowel sounds, non tender, soft Extremities: normal capillary refill, pedal edema Neurologic/Psychiatric: alert, normal mood/affect, oriented x 3 Skin: normal color, warm/dry, other (palpable contusion over her sacrum and lumbar region without ecchymoses.) Progress/Results/Core Measures Suspected Sepsis Recent Fever Within 48 Hours: No Infection Criteria Present: Suspected New Infection New/Unexplained Altered Menta: No Sepsis Screen: Possible Sepsis Risk Sepsis Diagnosis: SIRS Temperature:97.8 Pulse: 99 Respiratory Rate: 22 Laboratory Tests 08/13/17 19:20: White Blood Count 11.4H Blood Pressure 149 /87 Mean: 107 Laboratory Tests 08/13/17 19:20: Creatinine 0.71, Platelet Count 342, Total Bilirubin 0.3 Results/Orders Lab Results Laboratory Tests Test 08/13/17 19:20 08/13/17 20:05 Range/Units White Blood Count 11.4 H 4.3-11.0 10^3/uL Red Blood Count 3.81 L 4.35-5.85 10^6/uL Hemoglobin 9.7 L 11.5-16.0 G/DL Hematocrit 33 L 35-52 % Mean Corpuscular Volume 85 80-99 FL Mean Corpuscular Hemoglobin 26 25-34 PG Mean Corpuscular Hemoglobin Concent 30 L 32-36 G/DL Red Cell Distribution Width 15.5 H 10.0-14.5 % Platelet Count 342 130-400 10^3/uL Mean Platelet Volume 11.0 H 7.4-10.4 FL Neutrophils (%) (Auto) 82 H 42-75 % Lymphocytes (%) (Auto) 11 L 12-44 % Monocytes (%) (Auto) 5 0-12 % Eosinophils (%) (Auto) 1 0-10 % Basophils (%) (Auto) 0 0-10 % Neutrophils # (Auto) 9.3 H 1.8-7.8 X 10^3 Lymphocytes # (Auto) 1.3 1.0-4.0 X 10^3 Monocytes # (Auto) 0.6 0.0-1.0 X 10^3 Eosinophils # (Auto) 0.2 0.0-0.3 10^3/uL Basophils # (Auto) 0.0 0.0-0.1 10^3/uL Sodium Level 142 135-145 MMOL/L Potassium Level 4.1 3.6-5.0 MMOL/L Chloride Level 96 L 98-107 MMOL/L Carbon Dioxide Level 35 H 21-32 MMOL/L Anion Gap 11 5-14 MMOL/L Blood Urea Nitrogen 18 7-18 MG/DL Creatinine 0.71 0.60-1.30 MG/DL Estimat Glomerular Filtration Rate > 60 BUN/Creatinine Ratio 25 Glucose Level 158 H 70-105 MG/DL Calcium Level 10.1 8.5-10.1 MG/DL Total Bilirubin 0.3 0.1-1.0 MG/DL Aspartate Amino Transf (AST/SGOT) 13 5-34 U/L Alanine Aminotransferase (ALT/SGPT) 20 0-55 U/L Alkaline Phosphatase 89 40-136 U/L Troponin I < 0.30 <0.30 NG/ML C-Reactive Protein High Sensitivity 1.68 H 0.00-0.50 MG/DL B-Type Natriuretic Peptide 30.2 <100.0 PG/ML Total Protein 7.5 6.4-8.2 GM/DL Albumin 4.0 3.2-4.5 GM/DL Urine Color YELLOW Urine Clarity SLIGHTLY CLOUDY Urine pH 7 5-9 Urine Specific [place] 1.010 L 1.016-1.022 Urine Protein 2+ H NEGATIVE Urine Glucose (UA) NEGATIVE NEGATIVE Urine Ketones NEGATIVE NEGATIVE Urine Nitrite NEGATIVE NEGATIVE Urine Bilirubin NEGATIVE NEGATIVE Urine Urobilinogen NORMAL NORMAL MG/DL Urine Leukocyte Esterase 3+ H NEGATIVE Urine RBC (Auto) 1+ H NEGATIVE Urine RBC 0-5 /HPF Urine WBC 25-50 H /HPF Urine Squamous Epithelial Cells 5-10 /HPF Urine Crystals NONE /LPF Urine Bacteria FEW H /HPF Urine Casts NONE /LPF Urine Mucus NEGATIVE /LPF Urine Culture Indicated YES My Orders Orders - IMAN PARSONS Albuterol Pre-Mix Nebs (Rt) (Proventil (08/13/17 19:26) Albuterol/Ipra Inhalation Soln (Duoneb I (08/13/17 19:26) BNP (08/13/17:30) Cbc With Automated Diff (08/13/17:30) Comprehensive Metabolic Panel (08/13/17 19:30) Hs C Reactive Protein (08/13/17 19:30) Troponin I (08/13/17 19:30) Ua Culture If Indicated (08/13/17:30) Sputum Culture (08/13/17:30) Chest Pa/Lat (2 View) (08/13/17 19:30) Albuterol Pre-Mix Nebs (Rt) (Proventil (08/13/17 19:30) Albuterol/Ipra Inhalation Soln (Duoneb I (08/13/17 19:30) Ekg Tracing (08/13/17:30) Continuous Ekg Monitoring (08/13/17:30) Svn Sm Volume Nebulizer Rt-Rfs (08/13/17 19:30) Lumbar Spine - 2-3 Views (08/13/17 19:37) Albuterol Pre-Mix Nebs (Rt) (Proventil (08/13/17 19:45) Urine Culture (08/13/17 20:05) Vital Signs/I&O Vital Sign - Last 12Hours 08/13/17 19:07 Temp 97.8 Pulse 99 Resp 22 B/P (MAP) 149/87 (107) Pulse Ox 94 O2 Delivery Nasal Cannula O2 Flow Rate 4.00 Capillary Refill : Less Than 3 Seconds Blood Pressure Mean: 107 Progress Note : Time: 19:39 Progress Note Differential is COPD versus heart failure exacerbation. Get an x-ray of her lower spine since she has a contusion there. We'll check a troponin and EKG thinking about causes for possible heart failure. Her cough is not very consistent with a bad pneumonia however to possible so we'll get a CRP to help us decide if this is inflammatory versus congestive. ECG Initial ECG Impression Date: Aug 13, 2017 Initial ECG Impression Time: 20:33 Initial ECG Rate: 104 Initial ECG Rhythm: S.Tach Initial ECG Intervals: Normal Initial ECG Impression: Normal, Nonspecific Changes Comment No T-wave elevation or depression. Diagnostic Imaging Diagonstic Imaging: Xray Plain Films/CT/US/NM/MRI: chest (2v) Comments NAME: LOKESH BARKLEY [facility] REC#: [id number] PHYSICIAN: IMAN PARSONS MD CC: MAXIMILIANO DONOVAN; IMAN PARSONS Page 1 of 1 RADIOLOGY REPORT VIA [facility]. [place] CC: MAXIMILIANO DONOVAN; IMAN PARSONS Page 1 of 1 RADIOLOGY REPORT NAME: LOKESH BARKLEY [facility] REC#: [id number] PT STATUS: REG ER : 1950 PHYSICIAN: IMAN PARSONS MD ADMIT DATE: 08/13/17/ER Signed Date of Exam: 08/13/17 CHEST PA/LAT (2 VIEW) INDICATION: COPD, cough, shortness of air. Exam compared 01/13/2017. FINDINGS: There is no focal consolidating infiltrate. Flattening of the diaphragms, a chronic finding. No free air beneath the diaphragms. Upper limits heart size stable. There is no abnormal distention of the vascularity, no edema. IMPRESSION: Chronic air trapping. No acute pathology identified. Dictated by: Dictated on workstation # [id number] Dict: 08/13/172048 Trans: 08/13/172116 Interpreted by: MAXIMILIANO DONOVAN Electronically signed by: MAXIMILIANO DONOVAN 08/13/172116 Reviewed: Reviewed by Me Diagonstic Imaging: Xray Plain Films/CT/US/NM/MRI: other (lumbar spine) Comments NAME: LOKESH BARKLEY [facility] REC#: [id number] PHYSICIAN: IMAN PARSONS MD CC: MAXIMILIANO DONOVAN; IMAN PARSONS Page 1 of 1 RADIOLOGY REPORT VIA [place] CC: MAXIMILIANO DONOVAN; IMAN PARSONS Page 1 of 1 RADIOLOGY REPORT NAME: LOKESH BARKLEY [facility] REC#: [id number] PT STATUS: REG ER : 1950 PHYSICIAN: IMAN PARSONS MD ADMIT DATE: 08/13/17/ER Signed Date of Exam: 08/13/17 LUMBAR SPINE - 2-3 VIEWS INDICATION: Fall two days ago with pain. COMPARISON: Exam correlated with two-view chest x-ray from December 2016. FINDINGS: Mild T11 endplate compression showed no progressive stature loss. T12 in the lumbar statures were normal. There is advanced spondylosis as a chronic degenerative finding. Severe degenerative changes to the left hip and a replaced right hip. IMPRESSION: Stable T11 compression fracture. No acute spinal injury. Severe degenerative changes aligned anatomically. Dictated by: Dictated on workstation # [id number] Dict: 08/13/172047 Trans: 08/13/172116 Interpreted by: MAXIMILIANO DONOVAN Electronically signed by: MAXIMILIANO DONOVAN 08/13/172116 Reviewed: Reviewed by Me Departure Communication (Admissions) Time/Spoke to Admitting Phy: 21:50 Communication Discussed case lab imaging and findings and he'll see the patient. Dr. Hayes Impression Impression: Primary Impression: COPD with acute exacerbation Disposition: ADMITTED INPATIENT Condition: Stable Admissions Decision to Admit Reason: Admit from ER (General) Decision to Admit/Date: Aug 13, 2017 Time/Decision to Admit Time: 21:49 Departure-Patient Inst. Referrals: RADHA HAYES DO (PCP/Family) Primary Care Physician Copy Copies To 1: RADHA HAYES TITUS J Aug 13, 2017 19:36
[2017-08-13] MEDS ORDERED: RT-ALBUTEROL SULF 2.5 MG/3 ML PRE-MIX VIAL INH SCH (19:45)
[2017-08-13 20:01] LABS: ALANINE AMINOTRANSFERASE 20 U/L (0-55); ANION GAP 11 MMOL/L (5-14); ASPARTATE AMINO TRANSFERASE 13 U/L (5-34); BILIRUBIN,TOTAL 0.3 MG/DL (0.1-1.0); BLOOD UREA NITROGEN 18 MG/DL (7-18); CALCIUM 10.1 MG/DL (8.5-10.1); CARBON DIOXIDE 35 MMOL/L (21-32); CHLORIDE 96 MMOL/L (98-107); GLUCOSE 158 MG/DL (70-105); POTASSIUM 4.1 MMOL/L (3.6-5.0); SODIUM 142 MMOL/L (135-145); TOTAL PROTEIN 7.5 GM/DL (6.4-8.2); hs C REACTIVE PROTEIN 1.68 MG/DL (0.00-0.50)
[2017-08-13 20:07] LABS: TROPONIN I < 0.30 NG/ML (<0.30)
[2017-08-13 20:11] LABS: BUN/CREATININE RATIO 25; CREATININE SERUM 0.71 MG/DL (0.60-1.30); GFR ESTIMATED > 60
[2017-08-13 20:25] LABS: BILIRUBIN,URINE NEGATIVE (NEGATIVE); KETONES,URINE NEGATIVE (NEGATIVE); LEUKOCYTE ESTERASE ,URINE 3+ (NEGATIVE); NITRITE,URINE NEGATIVE (NEGATIVE); PH,URINE 7 (5-9); PROTEIN,URINE 2+ (NEGATIVE); UROBILINOGEN,URINE NORMAL (NORMAL)
[2017-08-13 20:31] LABS: WBC,URINE 25-50 /HPF
--- NOTE | 2017-08-13 20:54 | Diagnostic Imaging Report ---
INDICATION: COPD, cough, shortness of air. Exam compared 01/13/2017. FINDINGS: There is no focal consolidating infiltrate. Flattening of the diaphragms, a chronic finding. No free air beneath the diaphragms. Upper limits heart size stable. There is no abnormal distention of the vascularity, no edema. IMPRESSION: Chronic air trapping. No acute pathology identified. Dictated by: Dictated on workstation # [id number]
--- NOTE | 2017-08-13 20:56 | Diagnostic Imaging Report ---
INDICATION: Fall two days ago with pain. COMPARISON: Exam correlated with two-view chest x-ray from December 2016. FINDINGS: Mild T11 endplate compression showed no progressive stature loss. T12 in the lumbar statures were normal. There is advanced spondylosis as a chronic degenerative finding. Severe degenerative changes to the left hip and a replaced right hip. IMPRESSION: Stable T11 compression fracture. No acute spinal injury. Severe degenerative changes aligned anatomically. Dictated by: Dictated on workstation # [id number]
[2017-08-13] MEDS ORDERED: methylPREDNISolone 125 MG (Solu-MEDROL) VIAL IVP ONE (22:00)
[2017-08-13] MEDS ORDERED: ONDANSETRON 4 MG/2 ML (SDV) Z0FRAN IV PRN (23:15)
[2017-08-13] MEDS ORDERED: AZITHROMYCIN 500 MG/NS 250 ML IVPB IV ONE ×2 (23:15)
[2017-08-13] MEDS: ACETAMINOPHEN 500 MG TAB (TYLENOL) PO PRN (23:38)
[2017-08-14] VITALS (7 sets, daily range): BP systolic 137–173; BP diastolic 76–89
[2017-08-14] MEDS ORDERED: RT-ALBUTEROL SULF 2.5 MG/3 ML PRE-MIX VIAL INH PRN (01:30)
[2017-08-14] MEDS: RT-ALBUTEROL SULF 2.5 MG/3 ML PRE-MIX VIAL INH SCH ×6 (01:58→22:28)
[2017-08-14] MEDS ORDERED: methylPREDNISolone 125 MG (Solu-MEDROL) VIAL IVP SCH (06:00)
[2017-08-14 06:14] LABS: BASOPHILS % (AUTO) 0 % (0-10); EOSINOPHILS % (AUTO) 0 % (0-10); LYMPHOCYTES # (AUTO) 0.6 X 10^3 (1.0-4.0); LYMPHOCYTES % (AUTO) 5 % (12-44); MEAN CORPUSCULAR HEMOGLOBIN 25 PG (25-34); MEAN CORPUSCULAR HGB CONC 30 G/DL (32-36); MEAN CORPUSCULAR VOLUME 85 FL (80-99); MEAN PLATELET VOLUME 11.3 FL (7.4-10.4); MONOCYTES # (AUTO) 0.1 X 10^3 (0.0-1.0); MONOCYTES % (AUTO) 1 % (0-12); NEUTROPHILS # (AUTO) 11.1 X 10^3 (1.8-7.8); NEUTROPHILS % (AUTO) 94 % (42-75); PLATELET COUNT 318 10^3/uL (130-400); RED BLOOD COUNT 3.67 10^6/uL (4.35-5.85); RED CELL DISTRIBUTION WIDTH 15.6 % (10.0-14.5); WHITE BLOOD COUNT 11.7 10^3/uL (4.3-11.0)
[2017-08-14 06:35] LABS: ANISOCYTOSIS SLIGHT; BAND NEUTROPHILS 2 %; BASOPHILS % (MANUAL) 0 %; EOSINOPHILS % (MANUAL) 0 %; HYPOCHROMASIA MODERATE; LYMPHOCYTES % (MANUAL) 7 %; METAMYELOCYTES % 3 %; NEUTROPHILS % (MANUAL) 87 %; POLYCHROMASIA SLIGHT; ROULEAUX SLIGHT; STOMATOCYTES SLIGHT
[2017-08-14 06:44] LABS: ALANINE AMINOTRANSFERASE 16 U/L (0-55); ALBUMIN 3.8 GM/DL (3.2-4.5); ANION GAP 12 MMOL/L (5-14); ASPARTATE AMINO TRANSFERASE 13 U/L (5-34); BILIRUBIN,TOTAL 0.2 MG/DL (0.1-1.0); BLOOD UREA NITROGEN 22 MG/DL (7-18); BUN/CREATININE RATIO 28; CALCIUM 9.8 MG/DL (8.5-10.1); CARBON DIOXIDE 30 MMOL/L (21-32); CHLORIDE 95 MMOL/L (98-107); GFR ESTIMATED > 60; GLUCOSE 393 MG/DL (70-105); POTASSIUM 4.9 MMOL/L (3.6-5.0); SODIUM 137 MMOL/L (135-145)
[2017-08-14] MEDS: UMECLIDINIUM BROMIDE (INCRUSE ELLIPTA) 7'S IH SCH (08:00)
[2017-08-14] MEDS: RT-ADVAIR HFA 115/21 MCG PER PUFF IH SCH ×2 (08:00→19:27)
--- NOTE | 2017-08-14 08:12 | History & Physicial ---
History of Present Illness History of Present Illness Reason for visit/HPI chief complaint trouble breathing and short of breath. Patient came out to the emergency room evaluated by the emergency room physician. Patient fell and hurt her back. Breathing problem started 4 days ago. Patient has history of COPD. Patient stopped smoking in 2013. Surgeries right ankle, left knee, both hands, gallbladder, and right hip replacement Date of Admission Aug 13, 2017 at 21:52 Time Seen by Provider: 08:10 I consulted on this patient on 08/14/17 08:09 Attending Physician Sina Hayes DO Admitting Physician Sina Hayes DO Consult Allergies and Home Medications Allergies Coded Allergies: enalapril (Verified Allergy, Severe, ANAPHYLAXIS, 08/22/13) Home Medications Albuterol Sulfate 2.5 Mg/3 Ml Vial.neb, 2.5 MG NEB Q4H PRN for SHORTNESS OF BREATH, (Reported) Alprazolam 0.25 Mg Tablet, 0.25 MG PO DAILY PRN for ANXIETY, (Reported) Amlodipine Besylate 10 Mg Tablet, 10 MG PO DAILY, (Reported) Atorvastatin Calcium 10 Mg Tablet, 10 MG PO HS, (Reported) Budesonide/Formoterol Fumarate 10.2 Gm Hfa.aer.ad, 2 PUFF IH BID, (Reported) Furosemide 40 Mg Tablet, 40 MG PO DAILY, (Reported) Gabapentin 300 Mg Capsule, 300 MG PO BID, (Reported) Glimepiride 4 Mg Tablet, 8 MG PO DAILY, (Reported) TAKES 2 (4 MG) TABLETS Hydrocodone/Acetaminophen 1 Each Tablet, 1 TAB PO QID PRN for PAIN, (Reported) Insulin Aspart 300 Units/3 Ml Solution, SQ AC PRN for SLIDING SCALE BS ABOVE 200 , (Reported) Insulin Detemir 100 Unit/1 Ml Insuln.pen, 25 UNIT SQ DAILY@1100, (Reported) Metformin HCl 500 Mg Tablet, 1,000 MG PO BID, (Reported) TAKES 2 (500MG) TABLETS Multivit-Min/FA/Lycopene/Lut 1 Each Tablet, 1 TAB PO DAILY, (Reported) Naproxen 500 Mg Tablet, 500 MG PO BID, (Reported) [place]-3/Dha/Epa/Fish Oil 1 Each Capsule, 1,000 MG PO DAILY, (Reported) Potassium Chloride 10 Meq Capsule.er, 10 MEQ PO HS, (Reported) Pramipexole Di-HCl 1 Mg Tablet, 1 MG PO HS, (Reported) Prednisone 10 Mg Tab, 10 MG PO BID for 3 Days, #6 Prescribed by: GAUDENCIO FAJARDO on 01/16/17 1044 Prednisone 10 Mg Tab, 10 MG PO DAILY for 3 Days, #3 Take 2 tabs BID for 3 days and then take one tab daily for 3 days. Prescribed by: GAUDENCIO FAJARDO on 01/16/17 1044 Sertraline HCl 50 Mg Tablet, 50 MG PO HS, (Reported) Tiotropium [place] 4 Gm Mist.inhal, 2 PUFF IH DAILY, (Reported) Past Yabbnnf-Znzkym-Uaocck Hx Patient Social History Marrital Status: Employed/Student: unemployed Alcohol Use: Denies Use Recreational Drug Use: No Smoking Status: Former Smoker Former Smoker, Quit: Jul 30, 2012 Type Used: Cigarettes 2nd Hand Smoke Exposure: Yes Physical Abuse Screen: No Sexual Abuse: No Recent Foreign Travel: No Contact w/other who traveled: No Recent Hopitalizations: Yes (02/2017) Recent Infectious Disease Expo: No Immunizations Up To Date Tetanus Booster (TDap): More than 5yrs Pediatric: No Date of Pneumonia Vaccine: May 21, 2013 Date of Influenza Vaccine: May 25, 2017 Seasonal Allergies Seasonal Allergies: Yes Surgeries Yes (TOTAL right hip, carpul tunnel bilat, LEFT KNEE SX, RIGHT ANKLE) Gallbladder, Joint Replacement, Orthopedic Respiratory Yes COPD Currently Using CPAP: No Currently Using BIPAP: No Cardiovascular Yes Chronic Edema/Swelling, Hypertension Neurological Yes Neuropathy 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 System Hx 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 Disorders: No Sexually Transmitted Disease: No HIV/AIDS: No Female 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 Genitourinary No Gastrointestinal Yes Gastroesophageal Reflux, Chronic Constipation, Diverticulosis, Hemorrhoids, Polyps, Hiatal Hernia, Gall Bladder Disease Musculoskeletal Yes Degenerate Disk Disease, Arthritis, Chronic Back Pain Endocrine History of Endocrine Disorders: Yes Endocrine Disorders: Diabetes, Insulin dep HEENT History of HEENT Disorders: No HEENT Disorders: Cataract Loss of Vision: Denies Hearing Impairment: Denies Cancer No Psychosocial History of Psychiatric Problem: Yes Behavioral Health Disorders: Sleep Difficulties, Anxiety, Depression Integumentary History of Skin or Integumenta: No Blood Transfusions History of Blood Disorders: No Adverse Reaction to a Blood Tr: No Family Medical History Significant Family History: Heart Disease, COPD, Hypertension, Lung Disease Family Hx: Completed stroke 09 BROTHER Family history: Asthma 03 MOTHER History of - respiratory disease 03 FATHER (PNEUMONIA) 03 MOTHER (ASTHMA, COPD) Constitutional: weakness, other (back pain) EENTM: no symptoms reported Respiratory: dyspnea on exertion, short of breath Cardiovascular: no symptoms reported Gastrointestinal: no symptoms reported Genitourinary: no symptoms reported Physical Exam Vital Signs Vital Sign - Last 12Hours 08/13/17 19:07 Temp 97.8 Pulse 99 Resp 22 B/P (MAP) 149/87 (107) Pulse Ox 94 O2 Delivery Nasal Cannula O2 Flow Rate 4.00 Capillary Refill : Less Than 3 Seconds General Appearance: No Apparent Distress, WD/WN Eyes: Bilateral Eye Normal Inspection HEENT: Normal ENT Inspection Neck: Full Range of Motion, Normal Inspection Respiratory: No Accessory Muscle Use, No Respiratory Distress, Decreased Breath Sounds Cardiovascular: Regular Rate, Rhythm, No Murmur Gastrointestinal: Non Tender, Soft Assessment/Plan Assessment and Plan COPD with acute exacerbation. Diabetes. Back pain. Difficulty in ambulating Problems: Clinical Quality Measures DVT/VTE Risk/Contraindication: Risk Factor Score Per Nursin RFS Level Per Nursing on Admit: 4+=Very High SINA HAYES DO Aug 14, 2017 08:12
[2017-08-14] MEDS: ACETAMINOPHEN 500 MG TAB (TYLENOL) PO PRN (08:32)
[2017-08-14] MEDS: ENOXAPARIN 40 MG/0.4 ML (LOVENOX) SYR SC SCH (10:02)
[2017-08-14] MEDS ORDERED: ALPRAZolam 0.25 MG (XANAX) TAB PO PRN (10:15)
[2017-08-14] MEDS ORDERED: NON-FORMULARY MEDICATION 1 EA EA (Insulin Detemir (Levemir Flextouch) 15 UNIT) SQ SCH (11:00)
--- NOTE | 2017-08-14 11:00 | Physical Therapy Evaluation ---
PT Evaluation-General Medical Diagnosis Admission Date Aug 13, 2017 at 21:52 Medical Diagnosis: COPD exacerbation Onset Date: Aug 13, 2017 Therapy Diagnosis Therapy Diagnosis: decreased pulmonary function Height/Weight Height (Feet): 5 Height (Inches): 9.00 Weight (Pounds): 218 Weight (Ounces): 2.0 Precautions Precautions/Isolations: Standard Precautions Weight Bear Status Right Lower Extremity: Right Full Weight Bearing Left Lower Extremity: Left Full Weight Bearing Referral Physician: Papo Reason for Referral: Evaluation/Treatment Medical History Pertinent Medical History: Arthritis, COPD, DM, Heart Failure, HTN, Smoking Additional Medical History O2 4L at home prior Current History increase in edema and SOA x 3 days Reviewed History: Yes Social History Home: Single Level Current Living Status: Spouse Entry Into Home: Level Entry Prior/Core FIM Prior Level of Function Functional [place] Measure 0=Not Assessed/NA 4=Minimal Assistance 1=Total Assistance 5=Supervision or Setup 2=Maximal Assistance 6=Modified [place] 3=Moderate Assistance 7=Complete [place] Bed Mobility: 6 Transfers (B,C,W/C) (FIM): 6 Gait: 6 PT Evaluation-Current Subjective Patient reluctantly agrees to PT. RT had just given a breathing treatment. Pain Numeric Pain Scale: 0-No Pain Location: No Pain Reported Objective Patient Orientation: Normal For Age Problem Solving: Good Attachments: Oxygen (4L NC continuous) ROM/Strength ROM Lower Extremities bilateral LE WNL Strength Lower Extremities right knee flexion/extension 4/5; hip flexion 4/5; DF/PF 4/5 left knee flexion/extension 4/5; hip flexion 4/5; DF/PF 4/5 Integumentary/Posture Integumentary refer to nursing notes; noted contusion sacral region Bowel Incontinence: No Bladder Incontinence: No Posture WNL Neuromuscular (Tone, Coordination, Reflexes) grossly intact Sensory Vision: Functional Hearing: Functional Sensation Right Lower Extremit: Impaired Sensation Left Lower Extremity: Impaired Transfers Functional [place] Measure 0=Not Assessed/NA 4=Minimal Assistance 1=Total Assistance 5=Supervision or Setup 2=Maximal Assistance 6=Modified [place] 3=Moderate Assistance 7=Complete [place] Transfers (B, C, W/C) (FIM): 6 Scootin Rollin Supine to/from Sit: 6 Sit to/from Stand: 6 Gait Anticipated Mode of Locomotion: Walk Gait (FIM): 6 Distance (FIM): 3=150 ft Distance: 150' Gait Level of Assist: 6 Gait Assistive Device: FWW Comments/Gait Description safe and functional with FWW; increase SOA with minimal activity Balance Sitting Static: Normal Sitting Dynamic: Normal Standing Static: Normal Standing Dynamic: Normal Assessment/Needs 66 y.o. female, will benefit from short term skilled PT to address pulmonary functional with functional mobility to return to home with family. Patient instructed by this PT to be up in room ad heber and ambulate in room to improve pulmonary function. Rehab Potential: [place] Rehab Potential-Barriers: COPD PT Correction Goals Finance Administrator Goals PT Finance Administrator Goals Time Frame: Aug 22, 2017 Transfers (B,C,W/C) (FIM): 6 Gait (FIM): 6 Gait distance (FIM): 3=150 ft Gait Level of Assist: 6 Gait Assistive Device: FWW PT Plan Problem List Problem List: Other (COPD) Treatment/Plan Treatment Plan: Continue Plan of Care Treatment Plan: Education, Functional Activity Lio, Functional Strength, Gait , Safety, Therapeutic Exercise Treatment Duration: Aug 22, 2017 Frequency: 6 times per week Estimated Hrs Per Day: .25 hour per day Patient and/or Family Agrees t: Yes Safety Risks/Education Patient Education: Disease Process Discharge Recommendations Therapy D/C Recommendations: Home w/ Family Support Time/GCodes Time In: 1030 Time Out: 1045 Total Billed Treatment Time: 15 Total Billed Treatment 1 visit EVMod 15 min G Codes Necessary: LAURA Ruvalcaba PT Aug 14, 2017 11:00
[2017-08-14] MEDS: inSUlin (REGULAR) HUMAN 1 UNIT/0.01 ML (CHARGE PER UNIT) SC SCH ×3 (11:12→21:01)
[2017-08-14] MEDS: NAPROXEN 250 MG (NAPROSYN) TABLET PO SCH ×2 (11:12→20:08)
[2017-08-14] MEDS: inSUlin DETERMIR 1 UNIT/0.01 ML (LEVEMIR) CHARGE PER UNIT SQ SCH (11:12)
[2017-08-14] MEDS: methylPREDNISolone 125 MG (Solu-MEDROL) VIAL IVP SCH ×2 (14:34→21:03)
[2017-08-14] MEDS: GLIMEPIRIDE 4 MG (AMARYL) TAB PO SCH (20:07)
[2017-08-14] MEDS: KCL 10 MEQ TAB (MICRO K) PO SCH (20:08)
[2017-08-14] MEDS: PRAMIPEXOLE 0.5 MG TAB (MIRAPEX) PO SCH (20:08)
[2017-08-14] MEDS: metFORMIN 500 MG (GLUCOPHAGE) TAB PO SCH (20:08)
[2017-08-14] MEDS: GABAPENTIN 300 MG (NEURONTIN) CAP PO SCH (20:08)
[2017-08-14] MEDS: ATORVASTATIN 10 MG (LIPITOR) TABLET PO SCH (20:08)
[2017-08-14] MEDS: SERTRALINE 50 MG (ZOLOFT) TABLET PO SCH (20:08)
[2017-08-14] MEDS: HYDROcodone/APAP 10 MG/325 MG (LORTAB) TAB PO PRN (20:11)
[2017-08-14] MEDS: AZITHROMYCIN 250 MG/NS 250 ML IVPB IV SCH ×2 (21:17)
[2017-08-15] MEDS: inSUlin (REGULAR) HUMAN 1 UNIT/0.01 ML (CHARGE PER UNIT) SC SCH ×5 (00:49→20:21)
[2017-08-15 00:50] VITALS: BP 150/74
[2017-08-15] MEDS: RT-ALBUTEROL SULF 2.5 MG/3 ML PRE-MIX VIAL INH SCH ×6 (02:00→22:19)
[2017-08-15] MEDS: methylPREDNISolone 125 MG (Solu-MEDROL) VIAL IVP SCH ×3 (05:44→21:00)
[2017-08-15] MEDS: MULTIVIT W/MINERALS TAB (THERAGRAN M) PO SCH (05:44)
[2017-08-15 06:43] LABS: MEAN PLATELET VOLUME 10.9 FL (7.4-10.4); RED BLOOD COUNT 3.59 10^6/uL (4.35-5.85); RED CELL DISTRIBUTION WIDTH 15.5 % (10.0-14.5)
[2017-08-15 07:01] LABS: ANION GAP 9 MMOL/L (5-14); BLOOD UREA NITROGEN 26 MG/DL (7-18); BUN/CREATININE RATIO 33; CALCIUM 9.7 MG/DL (8.5-10.1); CARBON DIOXIDE 30 MMOL/L (21-32); CHLORIDE 98 MMOL/L (98-107); GFR ESTIMATED > 60; GLUCOSE 270 MG/DL (70-105); POTASSIUM 4.9 MMOL/L (3.6-5.0); SODIUM 137 MMOL/L (135-145)
--- NOTE | 2017-08-15 07:23 | Progress Note (SOAP) ---
Subjective Time Seen by Provider: 07:18 Subjective/Events-last exam patient feeling better today. Patient at rest breathing better. Patient's low back is better. Patient states short of breath when walks around. COPD with acute exacerbation. White blood cell count 15,000 due to Solu-Medrol. Sputum culture normal fang. Patient has slight wheezing at rest. Patient improving. Sugars elevated due to Solu-Medrol. Diabetes. Objective Exam Vital Signs Date Time Temp Pulse Resp B/P (MAP) Pulse Ox O2 Delivery O2 Flow Rate FiO2 08/15/17 05:27 98 Nasal Cannula 3.50 08/15/17 00:50 97.5 82 19 150/74 (99) 94 High Flow N/C 3.50 08/14/17 22:28 96 Nasal Cannula 3.50 08/14/17 20:26 High Flow N/C 5.00 08/14/17 20:00 97.5 79 18 164/83 (110) 95 High Flow N/C 3.50 08/14/17 19:31 99 Nasal Cannula 3.50 08/14/17 19:28 95 Nasal Cannula 3.50 08/14/17 16:00 97.3 79 18 163/76 (105) 96 High Flow N/C 3.50 08/14/17 14:49 95 Nasal Cannula 4.00 08/14/17 11:27 96.6 81 22 144/89 (107) 95 High Flow N/C 3.50 08/14/17 10:16 95 Nasal Cannula 4.00 08/14/17 08:47 96 High Flow N/C 5.00 08/14/17 08:00 96.8 83 24 147/82 (103) 96 High Flow N/C 3.50 I & O 08/15/17 07:00 Intake Total 2835 ml Output Total 2400 ml Balance 435 ml Capillary Refill : Less Than 3 SecondsLess Than 3 Seconds General Appearance: No Apparent Distress, WD/WN HEENT: Normal ENT Inspection Neck: Full Range of Motion, Non Tender Respiratory: Chest Non Tender, No Accessory Muscle Use, No Respiratory Distress , Decreased Breath Sounds, Wheezing Cardiovascular: Regular Rate, Rhythm, No Murmur Gastrointestinal: non tender, soft Results Lab Laboratory Tests 08/15/17 06:35 Laboratory Tests 08/14/17 11:00: Glucometer 337H 08/14/17 16:20: Glucometer 360H 08/14/17 20:44: Glucometer 421*H 08/15/17 00:45: Glucometer 395H 08/15/17 05:12: Glucometer 311H 08/15/17 06:35: White Blood Count 15.0H, Red Blood Count 3.59L, Hemoglobin 8.9L, Hematocrit 30L , Mean Corpuscular Volume 84, Mean Corpuscular Hemoglobin 25, Mean Corpuscular Hemoglobin Concent 29L, Red Cell Distribution Width 15.5H, Platelet Count 364, Mean Platelet Volume 10.9H, Sodium Level 137, Potassium Level 4.9, Chloride Level 98, Carbon Dioxide Level 30, Anion Gap 9, Blood Urea Nitrogen 26H, Creatinine 0.80, Estimat Glomerular Filtration Rate > 60, BUN/Creatinine Ratio 33, Glucose Level 270H, Calcium Level 9.7 Microbiology 08/13/17 Gram Stain - Final, Resulted 08/13/17 Sputum Culture - Preliminary, Resulted Usual/normal fang isolated. 08/13/17 Urine Culture - Preliminary, Resulted Corynebacterium Species Assessment/Plan Assessment/Plan Assess & Plan/Chief Complaint COPD with acute exacerbation. Lumbar pain resolved. Hypoxia. Diabetes. Patient doing better Clinical Quality Measures DVT/VTE Risk/Contraindication: Risk Factor Score Per Nursin RFS Level Per Nursing on Admit: 4+=Very High RADHA HAYES DO Aug 15, 2017 07:23
--- NOTE | 2017-08-15 08:19 | Diagnostic Imaging Report ---
Portable upright radiograph of the chest. INDICATION: COPD. FINDINGS: The lungs are clear except for minimal right basilar opacity with linear component suggestive of atelectasis.. The heart size is moderately enlarged. No effusion or pneumothorax. The mediastinum and brian appear unremarkable. IMPRESSION: Minimal right basilar atelectasis. Dictated by: Dictated on workstation # [id number]
--- NOTE | 2017-08-15 08:26 | Pulmonary Consultation ---
History of Present Illness History of Present Illness Date of Consultation 08/15/17 08:21 Time Seen by Provider: 08:21 Date of Admission History of Present Illness 66yo presented to ED secondary to worsening SOB, and wheezing. pt does have hx of COPD and CHF. Pt has ad similar prior episodes. Pt is using oxygen 4 liters at home and had to increase to 5 liters which did help some. NO f/ns/c. I am consulted for pulmonary management. Allergies and Home Medications Allergies Coded Allergies: enalapril (Verified Allergy, Severe, ANAPHYLAXIS, 08/22/13) Home Medications Albuterol Sulfate 2.5 Mg/3 Ml Vial.neb, 2.5 MG NEB Q4H PRN for SHORTNESS OF BREATH, (Reported) Alprazolam 0.25 Mg Tablet, 0.25 MG PO DAILY PRN for ANXIETY, (Reported) Amlodipine Besylate 10 Mg Tablet, 10 MG PO DAILY, (Reported) Atorvastatin Calcium 10 Mg Tablet, 10 MG PO HS, (Reported) Budesonide/Formoterol Fumarate 10.2 Gm Hfa.aer.ad, 2 PUFF IH BID, (Reported) Furosemide 40 Mg Tablet, 40 MG PO DAILY, (Reported) LAST FILLED #180 12-20-16 Gabapentin 300 Mg Capsule, 300 MG PO BID, (Reported) Glimepiride 4 Mg Tablet, 4 MG PO BID, (Reported) Hydrocodone/Acetaminophen 1 Each Tablet, 1 TAB PO TID PRN for PAIN-MODERATE, ( Reported) Insulin Aspart 300 Units/3 Ml Solution, SQ AC PRN for SLIDING SCALE BS ABOVE 200 , (Reported) Insulin Detemir 100 Unit/1 Ml Insuln.pen, 15 UNIT SQ 1100, (Reported) Metformin HCl 500 Mg Tablet, 1,000 MG PO BID, (Reported) TAKES 2 (500MG) TABLETS Multivit-Min/FA/Lycopene/Lut 1 Each Tablet, 1 TAB PO DAILY, (Reported) Naproxen 500 Mg Tablet, 500 MG PO BID, (Reported) Potassium Chloride 10 Meq Capsule.er, 10 MEQ PO HS, (Reported) Pramipexole Di-HCl 1 Mg Tablet, 1 MG PO HS, (Reported) Prednisone 10 Mg Tab.ds.pk, 10 MG PO DAILY, #42 Take 6 tabs(60mg)daily,decrease by 1 tab(10mg)every other day. Prescribed by: MIKE KERR on 08/17/17 1414 Sertraline HCl 50 Mg Tablet, 50 MG PO HS, (Reported) Tiotropium [place] 4 Gm Mist.inhal, 2 PUFF IH DAILY, (Reported) Past Gxtwxsr-Ivaifo-Cimpnw Hx Patient Social History Alcohol Use: Denies Use Recreational Drug Use: No Smoking Status: Former Smoker Type Used: Cigarettes Former Smoker, Quit: Jul 30, 2012 2nd Hand Smoke Exposure: Yes Recent Foreign Travel: No Contact w/Someone Who Travel: No Recent Infectious Disease Expo: No Recent Hopitalizations: Yes (02/2017) Physical Abuse: No Sexual Abuse: No Mistreated: No Fear: No Immunizations Up To Date Tetanus Booster (TDap): More than 5yrs PED Vaccines UTD: No Date of Pneumonia Vaccine: May 21, 2013 Date of Influenza Vaccine: May 25, 2017 Seasonal Allergies Seasonal Allergies: Yes Surgeries History of Surgeries: Yes (TOTAL right hip, carpul tunnel bilat, LEFT KNEE SX, RIGHT ANKLE) Surgeries: Gallbladder, Joint Replacement, Orthopedic Respiratory History of Respiratory Disorde: Yes Respiratory Disorders: Asthma, Pneumonia, Chronic Bronchitis, COPD Currently Using CPAP: No Currently Using BIPAP: No Cardiovascular History of Cardiac Disorders: Yes Cardiac Disorders: Chronic Edema/Swelling, Hypertension Neurological History of Neurological Disord: Yes Neurological Disorders: Neuropathy 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 System Hx 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 Disorders: No Sexually Transmitted Disease: No HIV/AIDS: No Female 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 Disorders: Denies 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 Genitourinary History of Genitourinary Disor: No Gastrointestinal History of Gastrointestinal Di: Yes Gastrointestinal Disorders: Gastroesophageal Reflux, Chronic Constipation, Diverticulosis, Hemorrhoids, Polyps, Hiatal Hernia, Gall Bladder Disease Musculoskeletal History of Musculoskeletal Dis: Yes Musculoskeletal Disorders: Degenerate Disk Disease, Arthritis, Chronic Back Pain Endocrine History of Endocrine Disorders: Yes Endocrine Disorders: Diabetes, Insulin dep HEENT History of HEENT Disorders: No HEENT Disorders: Cataract Loss of Vision: Denies Hearing Impairment: Denies Cancer History of Cancer: No Psychosocial History of Psychiatric Problem: Yes Behavioral Health Disorders: Sleep Difficulties, Anxiety, Depression Suicide Risk Score: 0 Integumentary History of Skin or Integumenta: No Blood Transfusions History of Blood Disorders: No Adverse Reaction to a Blood Tr: No Family Medical History Significant Family History: Heart Disease, COPD, Hypertension, Lung Disease Family Medial History: Completed stroke 09 BROTHER Family history: Asthma 03 MOTHER History of - respiratory disease 03 FATHER (PNEUMONIA) 03 MOTHER (ASTHMA, COPD) Review of Systems Time Seen by Provider: 08:25 Constitutional: Weakness, Malaise, No: Fever, Chills, Sweats, Other Eyes: No: Pain, Vision change, Conjunctivae inflammation, Eyelid inflammation, Other, Redness ENT: No: Ear pain, Ear discharge, Nose pain, Nose discharge, Nose congestion, Mouth pain, Mouth swelling, Throat pain, Throat swelling, Other Respiratory: Cough, Shortness of breath, SOB with excertion, Wheezing, Sputum Cardiovascular: Palpitations, Paroxysmal Noc. Dyspnea Gastrointestinal: Constipation, No: Nausea, Vomiting, Abdominal Pain, Diarrhea , Melena, Hematochezia, Other Neurological: Weakness, Incoordination, Confusion Exam Exam Vital Signs Date Time Temp Pulse Resp B/P (MAP) Pulse Ox O2 Delivery O2 Flow Rate FiO2 08/15/17 05:27 98 Nasal Cannula 3.50 08/15/17 00:50 97.5 82 19 150/74 (99) 94 High Flow N/C 3.50 08/14/17 22:28 96 Nasal Cannula 3.50 08/14/17 20:26 High Flow N/C 5.00 08/14/17 20:00 97.5 79 18 164/83 (110) 95 High Flow N/C 3.50 08/14/17 19:31 99 Nasal Cannula 3.50 08/14/17 19:28 95 Nasal Cannula 3.50 08/14/17 16:00 97.3 79 18 163/76 (105) 96 High Flow N/C 3.50 08/14/17 14:49 95 Nasal Cannula 4.00 08/14/17 11:27 96.6 81 22 144/89 (107) 95 High Flow N/C 3.50 08/14/17 10:16 95 Nasal Cannula 4.00 08/14/17 08:47 96 High Flow N/C 5.00 I & O 08/15/17 07:00 Intake Total 2835 ml Output Total 2400 ml Balance 435 ml General Appearance: No Apparent Distress, WD/WN HEENT: Normal ENT Inspection Neck: Full Range of Motion, Non Tender Respiratory: Chest Non Tender, No Accessory Muscle Use, No Respiratory Distress , Decreased Breath Sounds, Wheezing Cardiovascular: Regular Rate, Rhythm, No Murmur Capillary Refill: Less Than 3 Seconds Gastrointestinal: non tender, soft Skin: Normal Color, Warm/Dry Results Lab Laboratory Tests 08/13/17 19:20 08/14/17 05:58 08/15/17 06:35 Assessment/Plan Assessment/Plan COPD AE - improving -steroids, oxygen , SVNs hx of severe COPD oxygen dependent Obesity r/o OHS -check ABG -254 Clinical Quality Measures DVT/VTE Risk/Contraindication: Risk Factor Score Per Nursin RFS Level Per Nursing on Admit: 4+=Very High MK RAMOS DO Aug 15, 2017 08:26
[2017-08-15 08:30] VITALS: BP 144/91
[2017-08-15] MEDS: ENOXAPARIN 40 MG/0.4 ML (LOVENOX) SYR SC SCH (08:52)
[2017-08-15] MEDS: FUROSEMIDE 40 MG (LASIX) TAB PO SCH (08:52)
[2017-08-15] MEDS: GABAPENTIN 300 MG (NEURONTIN) CAP PO SCH ×2 (08:52→20:04)
[2017-08-15] MEDS: NAPROXEN 250 MG (NAPROSYN) TABLET PO SCH ×2 (08:52→20:05)
[2017-08-15] MEDS: GLIMEPIRIDE 4 MG (AMARYL) TAB PO SCH ×2 (08:52→20:04)
[2017-08-15] MEDS: HYDROcodone/APAP 10 MG/325 MG (LORTAB) TAB PO PRN ×2 (08:53→20:07)
[2017-08-15] MEDS: amLODIPine 10 MG (NORVASC) TAB PO SCH (08:53)
[2017-08-15] MEDS: metFORMIN 500 MG (GLUCOPHAGE) TAB PO SCH ×2 (08:53→20:05)
--- NOTE | 2017-08-15 10:43 | Physical Therapy Daily Note ---
PT Daily Note-Current Subjective Patient is sitting EOB and agrees to PT. Pain Numeric Pain Scale: 0-No Pain Location: No Pain Reported Mental Status Patient Orientation: Normal For Age Attachments: Oxygen (3-4L) Transfers Functional [place] Measure 0=Not Assessed/NA 4=Minimal Assistance 1=Total Assistance 5=Supervision or Setup 2=Maximal Assistance 6=Modified [place] 3=Moderate Assistance 7=Complete IndependenceIRFPAI Quality Coding Scale 6 Independent with activity with or without an assistive device 5 Patient requires set up or clean up by helper. Patient completes activity by themselves 4 Supervision or touching assist (CGA). [place] provide cues , steadying assist 3 The helper provides less than half the effort to complete the activity 2 The helper provides more than half the effort to complete the activity 1 Dependent. The helper does all the effort to complete an activity 7 Patient refused to complete or attempt activity 9 The patient did not perform the activity before the current illness or injury 88 Not attempted due to Medical conditions or safety concerns Transfers (B, C, W/C) (FIM): 6 Scootin Sit to/from Stand: 6 Weight Bearing Right Lower Extremity: Right Full Weight Bearing Left Lower Extremity: Left Full Weight Bearing Gait Training Gait (FIM): 6 Distance (FIM): 3=150 ft Distance: 225' Gait Level of Assist: 6 Gait Assistive Device: FWW safe and functional; improving with pulmonary function Assessment Patient improving with distance with ambulation and 4L O2. PT to continue to address pulmonary function with functional mobility. PT Saturation Equipment Operator Goals Snf Goals PT Saturation Equipment Operator Goals Time Frame: Aug 22, 2017 Transfers (B,C,W/C) (FIM): 6 Gait (FIM): 6 Gait distance (FIM): 3=150 ft Gait Level of Assist: 6 Gait Assistive Device: FWW PT Plan Treatment/Plan Treatment Plan: Continue Plan of Care Treatment Plan: Education, Functional Activity Lio, Functional Strength, Gait , Safety, Therapeutic Exercise Treatment Duration: Aug 22, 2017 Frequency: 6 times per week Estimated Hrs Per Day: .25 hour per day Patient and/or Family Agrees t: Yes Time/GCodes Time In: 945 Time Out: 955 Total Billed Treatment Time: 10 Total Billed Treatment 1 visit FA 10 min LAURA SALINAS PT Aug 15, 2017 10:43
[2017-08-15] MEDS: inSUlin DETERMIR 1 UNIT/0.01 ML (LEVEMIR) CHARGE PER UNIT SQ SCH (12:00)
[2017-08-15] MEDS: ACETAMINOPHEN 500 MG TAB (TYLENOL) PO PRN (12:03)
--- NOTE | 2017-08-15 12:21 | Physician Query Clarification ---
PQ-Further Specificity Admission/Discharge Admission Date: Aug 13, 2017 at 21:52 Discharge Date: The medical record reflects the following clinical scenario: History/Risk Factors: COPD, DIABETES Clinical Findings: SOB, Decreased breath sounds, swelling feet Treatment: IV Solumedrol, Azithromycin Question: Can you further specify CHF per the clinical indicators above? Please document below. 1. Chronic systolic CHF 2. Chronic diastolic CHF 3. Chronic systolic and diastolic CHF 3. Other, with explanation of the clinical findings. 4. Clinically undetermined, no explanation for the clinical findings. PHYSICIAN RESPONSE Can you specify per above: Clinically undetermined In responding to this query, please exercise your independent professional judgment. The purpose of this communication is to more accurately reflect the complexity of your patients condition. The fact that a question is asked does not imply that any particular answer is desired or expected. Thank you for your timely response to this clarification. Requestors name: Maria THIS PHYSICIAN QUERY FORM IS A PERMANENT PART OF THE MEDICAL RECORD MARIA MAYNARD Aug 15, 2017 12:21 RADHA HAYES DO Aug 15, 2017 14:36
[2017-08-15] MEDS: RT-ADVAIR HFA 115/21 MCG PER PUFF IH SCH ×2 (13:02→22:19)
[2017-08-15] MEDS: UMECLIDINIUM BROMIDE (INCRUSE ELLIPTA) 7'S IH SCH (13:02)
[2017-08-15 13:06] VITALS: BP 149/78
[2017-08-15 15:43] LABS: ABG BASE EXCESS 7.1 MMOL/L (-2.5-2.5); ABG HCO3 33 MMOL/L (23-27); ABG OXYGEN SATURATION 97 % (94-100); ABG PCO2 68 MMHG (35-45); ABG PO2 80 MMHG (79-93); ABG TCO2 35.6 MMOL/L (21.0-31.0)
[2017-08-15 15:48] LABS: ABG PH 7.31 (7.37-7.43); ALLENS TEST POSITIVE; PATIENT TEMP 97.1
[2017-08-15 16:26] VITALS: BP 137/79
[2017-08-15] MEDS: ATORVASTATIN 10 MG (LIPITOR) TABLET PO SCH (20:04)
[2017-08-15] MEDS: PRAMIPEXOLE 0.5 MG TAB (MIRAPEX) PO SCH (20:04)
[2017-08-15] MEDS: KCL 10 MEQ TAB (MICRO K) PO SCH (20:04)
[2017-08-15] MEDS: SERTRALINE 50 MG (ZOLOFT) TABLET PO SCH (20:04)
[2017-08-15] MEDS: AZITHROMYCIN 250 MG/NS 250 ML IVPB IV SCH ×2 (21:00)
[2017-08-15 23:10] VITALS: BP 154/95
[2017-08-16] MEDS: RT-ALBUTEROL SULF 2.5 MG/3 ML PRE-MIX VIAL INH SCH ×6 (02:55→23:59)
[2017-08-16] MEDS: MULTIVIT W/MINERALS TAB (THERAGRAN M) PO SCH (05:28)
[2017-08-16] MEDS: methylPREDNISolone 125 MG (Solu-MEDROL) VIAL IVP SCH ×3 (05:28→21:02)
[2017-08-16] MEDS: inSUlin (REGULAR) HUMAN 1 UNIT/0.01 ML (CHARGE PER UNIT) SC SCH ×2 (05:33→12:07)
[2017-08-16] MEDS: RT-ADVAIR HFA 115/21 MCG PER PUFF IH SCH ×2 (07:44→18:53)
[2017-08-16] MEDS: UMECLIDINIUM BROMIDE (INCRUSE ELLIPTA) 7'S IH SCH (07:44)
[2017-08-16 08:00] VITALS: BP 173/79
[2017-08-16] MEDS: metFORMIN 500 MG (GLUCOPHAGE) TAB PO SCH ×2 (08:30→21:02)
[2017-08-16] MEDS: FUROSEMIDE 40 MG (LASIX) TAB PO SCH (08:30)
[2017-08-16] MEDS: amLODIPine 10 MG (NORVASC) TAB PO SCH (08:30)
[2017-08-16] MEDS: NAPROXEN 250 MG (NAPROSYN) TABLET PO SCH ×2 (08:31→21:02)
[2017-08-16] MEDS: GLIMEPIRIDE 4 MG (AMARYL) TAB PO SCH ×2 (08:31→21:01)
[2017-08-16] MEDS: GABAPENTIN 300 MG (NEURONTIN) CAP PO SCH ×2 (08:32→21:02)
[2017-08-16] MEDS: ENOXAPARIN 40 MG/0.4 ML (LOVENOX) SYR SC SCH (08:32)
--- NOTE | 2017-08-16 11:21 | Physical Therapy Daily Note ---
PT Daily Note-Current Subjective PT reports she is feeling better today. She agrees to go for a walk. Transfers Functional Dukes Measure 0=Not Assessed/NA 4=Minimal Assistance 1=Total Assistance 5=Supervision or Setup 2=Maximal Assistance 6=Modified Dukes 3=Moderate Assistance 7=Complete IndependenceIRFPAI Quality Coding Scale 6 Independent with activity with or without an assistive device 5 Patient requires set up or clean up by helper. Patient completes activity by themselves 4 Supervision or touching assist (CGA). [place] provide cues , steadying assist 3 The helper provides less than half the effort to complete the activity 2 The helper provides more than half the effort to complete the activity 1 Dependent. The helper does all the effort to complete an activity 7 Patient refused to complete or attempt activity 9 The patient did not perform the activity before the current illness or injury 88 Not attempted due to Medical conditions or safety concerns Weight Bearing Right Lower Extremity: Right Full Weight Bearing Left Lower Extremity: Left Full Weight Bearing Gait Training Gait (FIM): 5 Distance (FIM): 3=150 ft Distance: 200 Gait Level of Assist: 5 Gait Persons Needed: 1 Gait Assistive Device: FWW Requires cues to slow down and pace her walking and her breathing. She required SBA and O2 at 4L/min. Pt fatigued post treatment with reported rapid heart rate and trouble regaining control of breathing. 3-4 minutes of sitting with instruction on controlled breathing and patient was fine. Assessment Current Status: Fair Progress Patient continues to be limited in functional activity by SOB. She will benefit from continued therapy to promote increased activity tolerance and discharge to home. PT Rn Internal Medicine Goals Fpc Goals PT Fpc Goals Time Frame: Aug 22, 2017 Transfers (B,C,W/C) (FIM): 6 Gait (FIM): 6 Gait distance (FIM): 3=150 ft Gait Level of Assist: 6 Gait Assistive Device: FWW PT Plan Problem List Problem List: Activity Tolerance Treatment/Plan Treatment Plan: Continue Plan of Care Treatment Plan: Education, Functional Activity Lio, Functional Strength, Gait , Safety, Therapeutic Exercise Treatment Duration: Aug 22, 2017 Frequency: 6 times per week Estimated Hrs Per Day: .25 hour per day Patient and/or Family Agrees t: Yes Time/GCodes Time In: 855 Time Out: 910 Total Billed Treatment Time: 15 Total Billed Treatment visit, gait 15 min ANDREI PETTY PT Aug 16, 2017 11:21
[2017-08-16] MEDS ORDERED: hydrALAZINE (APRESOLINE) 25 MG TAB PO PRN (11:30)
[2017-08-16] MEDS: inSUlin DETERMIR 1 UNIT/0.01 ML (LEVEMIR) CHARGE PER UNIT SQ SCH ×2 (12:06→21:54)
[2017-08-16] MEDS: HYDROcodone/APAP 10 MG/325 MG (LORTAB) TAB PO PRN ×2 (12:06→21:12)
--- NOTE | 2017-08-16 12:44 | Progress Note-Hospitalist ---
Progress Note Progress Notes/Assess & Plan Date Seen 08/16/17 Time Seen by Provider: 11:30 Diagonsis/Assessment & Plan Patient reports she does not feel ready to go home She was caught smoking E cigarettes it was taken away and then her daughter brought her another one so patient counseled once again Patient continues to be wheezing Is having bowel movements and eating well No fever, blood pressure mild elevation Pleasant, oriented 3, chronically ill, obese Wheezing at end expiratory phase all herrera but no tachypnea but diminished breath sounds all herrera Assessment: Acute exacerbation of COPD and chronically dependent oxygen patient of 4 L at home HTN OOC due to steroids DM OOC due to steroids Plan: Monitor sugars and increase Levemir and change to Novolog SSI Monitor BP closely Poor prognosis EMILY CALIX DO Aug 16, 2017 12:44
[2017-08-16 16:00] VITALS: BP 148/80
[2017-08-16] MEDS: inSUlin ASPART (NovoLOG) 1 UNIT/0.01 ML (CHARGE PER UNIT) SC SCH ×2 (16:12→21:13)
[2017-08-16] MEDS: SERTRALINE 50 MG (ZOLOFT) TABLET PO SCH (21:01)
[2017-08-16] MEDS: PRAMIPEXOLE 0.5 MG TAB (MIRAPEX) PO SCH (21:01)
[2017-08-16] MEDS: KCL 10 MEQ TAB (MICRO K) PO SCH (21:01)
[2017-08-16] MEDS: ATORVASTATIN 10 MG (LIPITOR) TABLET PO SCH (21:01)
[2017-08-16] MEDS: AZITHROMYCIN 250 MG/NS 250 ML IVPB IV SCH ×2 (21:54)
[2017-08-17] VITALS: BP 147/99
[2017-08-17] MEDS: RT-ALBUTEROL SULF 2.5 MG/3 ML PRE-MIX VIAL INH SCH ×3 (02:24→10:35)
[2017-08-17] MEDS: methylPREDNISolone 125 MG (Solu-MEDROL) VIAL IVP SCH (05:39)
[2017-08-17] MEDS: MULTIVIT W/MINERALS TAB (THERAGRAN M) PO SCH (05:39)
[2017-08-17] MEDS: HYDROcodone/APAP 10 MG/325 MG (LORTAB) TAB PO PRN (05:39)
[2017-08-17] MEDS: inSUlin ASPART (NovoLOG) 1 UNIT/0.01 ML (CHARGE PER UNIT) SC SCH ×2 (05:40→11:40)
[2017-08-17] MEDS: RT-ADVAIR HFA 115/21 MCG PER PUFF IH SCH (07:24)
[2017-08-17] MEDS: UMECLIDINIUM BROMIDE (INCRUSE ELLIPTA) 7'S IH SCH (07:24)
[2017-08-17 07:28] VITALS: BP 147/99
[2017-08-17 08:00] VITALS: BP 179/79
[2017-08-17] MEDS: amLODIPine 10 MG (NORVASC) TAB PO SCH (08:17)
[2017-08-17] MEDS: GLIMEPIRIDE 4 MG (AMARYL) TAB PO SCH (08:17)
[2017-08-17] MEDS: GABAPENTIN 300 MG (NEURONTIN) CAP PO SCH (08:17)
[2017-08-17] MEDS: FUROSEMIDE 40 MG (LASIX) TAB PO SCH (08:17)
[2017-08-17] MEDS: metFORMIN 500 MG (GLUCOPHAGE) TAB PO SCH (08:17)
[2017-08-17] MEDS: ENOXAPARIN 40 MG/0.4 ML (LOVENOX) SYR SC SCH (08:18)
[2017-08-17] MEDS: NAPROXEN 250 MG (NAPROSYN) TABLET PO SCH (08:18)
[2017-08-17] MEDS: inSUlin DETERMIR 1 UNIT/0.01 ML (LEVEMIR) CHARGE PER UNIT SQ SCH (11:40)
[2017-08-17] MEDS ORDERED: PRED10TA22 PO (14:14)
--- NOTE | 2017-08-17 14:19 | Progress Note-Hospitalist ---
Subjective HPI/CC On Admission Date Seen by Provider: Aug 17, 2017 Time Seen by Provider: 13:00 Subjective/Events-last exam patient is doing well and is not anxious to go home but is on less oxygen than she usually is on Review of Systems Pulmonary: Dyspnea Objective Exam Vital Signs Vital Sign - Last 12Hours 08/13/17 08/17/17 19:07 07:28 Temp 97.8 Pulse 99 Resp 22 B/P (MAP) 149/87 (107) Pulse Ox 94 O2 Delivery Nasal Cannula O2 Flow Rate 4.00 FiO2 32 Capillary Refill : Less Than 3 SecondsLess Than 3 Seconds General Appearance: Chronically ill HEENT: Normal ENT Inspection Respiratory: Lungs Clear, Normal Breath Sounds, No Accessory Muscle Use, No Respiratory Distress Cardiovascular: Regular Rate, Rhythm, No Gallop Gastrointestinal: Soft Neurologic/Psychiatric: Alert, Oriented x3, No Motor/Sensory Deficits, Normal Mood/Affect Skin: Normal Color, Warm/Dry Assessment/Plan Assessment and Plan Assess & Plan/Chief Complaint Acute exacerbation of COPD and chronically dependent oxygen patient of 4 L at home-doing well-discharge today-on prednisone with close follow-up with Dr. Barros HTN OOC due to steroids MIKE GARRIDO MD Aug 17, 2017 2:19 pm
[2017-08-17] MEDS ORDERED: predniSONE 20 MG TAB PO SCH (21:00)
== END 2017-08-17 14:55 | disposition home or self-care (01) | DRG 192 ==
LOC: EDUNIT# 18:14 → ER 18:16 → 4TH 21:52
PROVIDERS: ADMIT Family Medicine; ATTEND Family Medicine
DX: J44.1 Chronic obstructive pulmonary disease with (acute) exacerbation (principal); I50.9 Heart failure, unspecified; E11.9 Type 2 diabetes mellitus without complications; M54.9 Dorsalgia, unspecified; R26.2 Difficulty in walking, not elsewhere classified; I10 Essential (primary) hypertension; K21.9 Gastro-esophageal reflux disease without esophagitis; F17.210 Nicotine dependence, cigarettes, uncomplicated; Z99.81 Dependence on supplemental oxygen; Z79.4 Long term (current) use of insulin; Z87.891 Personal history of nicotine dependence; T38.0X5A Adverse effect of glucocorticoids and synthetic analogues, initial encounter
CPT/HCPCS: 36415; 71010; 71020; 72100; 80048; 80053; 81000; 82805; 82962; 83880; 84484; 85007; 85025; 85027; 86141; 87070; 87088; 87205; 93005; 94640; 94664; 94760; 96374

== ENCOUNTER 2017-10-30 13:20 | Inpatient (IN) | payer MEDICARE ==
[~2017-10-30] VITALS: Ht 175.3 cm; Wt 104.8 kg
[2017-10-30] VITALS (11 sets, daily range): BP systolic 109–146; BP diastolic 56–123
[~2017-10-30 13:20] MED LIST changes: +NAPR-915 PO; -NAPR500T4 PO; +PRED10TA22 PO
[2017-10-30 13:46] LABS: BASOPHILS % (AUTO) 0 % (0-10); EOSINOPHILS % (AUTO) 0 % (0-10); HEMATOCRIT 32 % (35-52); HEMOGLOBIN 8.8 G/DL (11.5-16.0); LYMPHOCYTES # (AUTO) 0.9 X 10^3 (1.0-4.0); LYMPHOCYTES % (AUTO) 9 % (12-44); MEAN CORPUSCULAR HEMOGLOBIN 25 PG (25-34); MEAN CORPUSCULAR HGB CONC 28 G/DL (32-36); MEAN CORPUSCULAR VOLUME 89 FL (80-99); MEAN PLATELET VOLUME 11.3 FL (7.4-10.4); MONOCYTES # (AUTO) 0.5 X 10^3 (0.0-1.0); MONOCYTES % (AUTO) 5 % (0-12); NEUTROPHILS # (AUTO) 8.8 X 10^3 (1.8-7.8); NEUTROPHILS % (AUTO) 86 % (42-75); PLATELET COUNT 287 10^3/uL (130-400); RED BLOOD COUNT 3.54 10^6/uL (4.35-5.85); WHITE BLOOD COUNT 10.2 10^3/uL (4.3-11.0)
--- NOTE | 2017-10-30 13:50 | ED Fall/Injury ---
General Chief Complaint: Trauma-Non Activation Stated Complaint: FALL/RT ANKLE DEFORMITY Nursing Triage Note: SEE TRAUMA NOTE Source: patient Exam Limitations: no limitations History of Present Illness Date Seen by Provider: Oct 30, 2017 Time Seen by Provider: 13:48 Initial Comments To ER per EMS from home with reports of right ankle pain. Patient fell at home for unknown reasons. She did not slip or crew for become dizzy. However, upon EMS arrival she was noted to have right ankle deformity. She was with an air splint. However she was also noted to be cyanotic. Oxygen saturation 74% on room air. She was given a DuoNeb breathing treatment. She has a history of COPD and CHF. Location Injury Occurred: HOME Occurred: just prior to arrival Severity: moderate Allergies and Home Medications Allergies Coded Allergies: enalapril (Verified Allergy, Severe, ANAPHYLAXIS, 08/22/13) Home Medications Acetaminophen/Diphenhydramine 1 Each Tablet, 2 EACH PO HS, (Reported) Albuterol Sulfate 2.5 Mg/3 Ml Vial.neb, 2.5 MG NEB Q4H PRN for SHORTNESS OF BREATH, (Reported) Albuterol Sulfate 1 Puff Puff, 2 PUFF IH QID PRN for SHORTNESS OF BREATH, ( Reported) 1 PUFF = 90 MCG Amlodipine Besylate 10 Mg Tablet, 10 MG PO DAILY, (Reported) Atorvastatin Calcium 10 Mg Tablet, 10 MG PO HS, (Reported) Budesonide/Formoterol Fumarate 10.2 Gm Hfa.aer.ad, 2 PUFF IH BID, (Reported) Furosemide 40 Mg Tablet, 40 MG PO DAILY, (Reported) Gabapentin 300 Mg Capsule, 300 MG PO BID, (Reported) Glimepiride 4 Mg Tablet, 4 MG PO BID, (Reported) Hydrocodone/Acetaminophen 1 Each Tablet, 1 TAB PO QID PRN for PAIN-MODERATE, ( Reported) Insulin Detemir 100 Unit/1 Ml Insuln.pen, 15 UNIT SQ 1100, (Reported) Metformin HCl 500 Mg Tablet, 1,000 MG PO BID, (Reported) TAKES 2 (500MG) TABLETS Multivit-Min/FA/Lycopene/Lut 1 Each Tablet, 1 TAB PO DAILY, (Reported) Naproxen 500 Mg Tablet, 500 MG PO BID, (Reported) Oxymetazoline HCl 30 Ml Loa, 2 SPRAY NS Q4H PRN for CONGESTION, (Reported) Potassium Chloride 10 Meq Capsule.er, 10 MEQ PO HS, (Reported) Pramipexole Di-HCl 1 Mg Tablet, 1 MG PO HS, (Reported) Sertraline HCl 50 Mg Tablet, 50 MG PO HS, (Reported) Tiotropium [place] 4 Gm Mist.inhal, 2 PUFF IH DAILY, (Reported) Patient Home Medication List Home Medication List Reviewed: Yes Constitutional: see HPI Eyes: No Symptoms Reported Ears, Nose, Mouth, Throat: no symptoms reported Respiratory: see HPI, cough, short of breath Genitourinary: no symptoms reported Musculoskeletal: no symptoms reported Skin: no symptoms reported Psychiatric/Neurological: No Symptoms Reported (progress her on BiPAP she) Past Tnjilmv-Bvrhid-Msvtic Hx Patient Social History Alcohol Use: Denies Use Recreational Drug Use: No Smoking Status: Former Smoker Type Used: Cigarettes Former Smoker, Quit: Aug 25, 2012 2nd Hand Smoke Exposure: Yes Recent Foreign Travel: No Contact w/Someone Who Travel: No Recent Infectious Disease Expo: No Recent Hopitalizations: No Physical Abuse: No Sexual Abuse: No Mistreated: No Fear: No Immunizations Up To Date Tetanus Booster (TDap): Less than 5yrs PED Vaccines UTD: No Date of Pneumonia Vaccine: May 21, 2013 Date of Influenza Vaccine: May 25, 2017 Seasonal Allergies Seasonal Allergies: No Surgeries History of Surgeries: Yes (TOTAL right hip, carpul tunnel bilat, LEFT KNEE SX, RIGHT ANKLE) Surgeries: Gallbladder, Joint Replacement, Orthopedic Respiratory History of Respiratory Disorde: Yes Respiratory Disorders: Asthma, Pneumonia, Chronic Bronchitis, COPD Currently Using CPAP: No Currently Using BIPAP: No Cardiovascular History of Cardiac Disorders: Yes Cardiac Disorders: Chronic Edema/Swelling, Hypertension Neurological History of Neurological Disord: Yes Neurological Disorders: Neuropathy 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 System Hx 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 Disorders: No Sexually Transmitted Disease: No HIV/AIDS: No Female 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 Disorders: Denies MET[employer] History: Menopausal Genitourinary History of Genitourinary Disor: No Gastrointestinal History of Gastrointestinal Di: Yes Gastrointestinal Disorders: Gastroesophageal Reflux, Chronic Constipation, Diverticulosis, Hemorrhoids, Polyps, Hiatal Hernia, Gall Bladder Disease Musculoskeletal History of Musculoskeletal Dis: Yes Musculoskeletal Disorders: Degenerate Disk Disease, Arthritis, Chronic Back Pain Endocrine History of Endocrine Disorders: Yes Endocrine Disorders: Diabetes, Insulin dep HEENT History of HEENT Disorders: No HEENT Disorders: Cataract Loss of Vision: Denies Hearing Impairment: Denies Cancer History of Cancer: No Psychosocial History of Psychiatric Problem: Yes Behavioral Health Disorders: Sleep Difficulties, Anxiety, Depression Suicide Risk Score: 0 Integumentary History of Skin or Integumenta: No Blood Transfusions History of Blood Disorders: No Adverse Reaction to a Blood Tr: No Family Medical History Significant Family History: Heart Disease, COPD, Hypertension, Lung Disease Family Medial History: Completed stroke 09 BROTHER Family history: Asthma 03 MOTHER History of - respiratory disease 03 FATHER (PNEUMONIA) 03 MOTHER (ASTHMA, COPD) Physical Exam Vital Signs Vital Signs - First Documented 10/30/17 13:20 Temp 98.1 Pulse 108 Resp 26 B/P (MAP) 138/83 (101) Pulse Ox 85 O2 Delivery Nasal Cannula O2 Flow Rate 6.00 Capillary Refill : Less Than 3 Seconds General Appearance: WD/WN, no apparent distress HEENT: PERRL/EOMI, normal ENT inspection Neck: non-tender, full range of motion Cardiovascular: no murmur, tachycardia Respiratory: normal breath sounds, no respiratory distress, no accessory muscle use Gastrointestinal: normal bowel sounds, non tender, soft Extremities: normal range of motion, non-tender Neurologic/Psychiatric: alert, normal mood/affect, oriented x 3 Skin: normal color, warm/dry Comments GCS 15, no other sign of injury. Upon arrival to ER she is with diminished lung sounds in some respiratory distress. Oxygen saturation 94% with a breathing treatment going. She does have some wheezing. [place] Coma Score Best Eye Response: (4) Open Spontaneously Best Verbal Response: (5) Oriented Best Motor Response: (6) Obeys Commands Sanjay Total: 15 Progress/Results/Core Measures Results/Orders Lab Results Laboratory Tests Test 10/30/17 13:37 10/30/17 14:01 10/30/17 14:30 Range/Units White Blood Count 10.2 4.3-11.0 10^3/uL Red Blood Count 3.54 L 4.35-5.85 10^6/uL Hemoglobin 8.8 L 11.5-16.0 G/DL Hematocrit 32 L 35-52 % Mean Corpuscular Volume 89 80-99 FL Mean Corpuscular Hemoglobin 25 25-34 PG Mean Corpuscular Hemoglobin Concent 28 L 32-36 G/DL Red Cell Distribution Width 16.0 H 10.0-14.5 % Platelet Count 287 130-400 10^3/uL Mean Platelet Volume 11.3 H 7.4-10.4 FL Neutrophils (%) (Auto) 86 H 42-75 % Lymphocytes (%) (Auto) 9 L 12-44 % Monocytes (%) (Auto) 5 0-12 % Eosinophils (%) (Auto) 0 0-10 % Basophils (%) (Auto) 0 0-10 % Neutrophils # (Auto) 8.8 H 1.8-7.8 X 10^3 Lymphocytes # (Auto) 0.9 L 1.0-4.0 X 10^3 Monocytes # (Auto) 0.5 0.0-1.0 X 10^3 Eosinophils # (Auto) 0.0 0.0-0.3 10^3/uL Basophils # (Auto) 0.0 0.0-0.1 10^3/uL Neutrophils % (Manual) 86 % Lymphocytes % (Manual) 3 % Monocytes % (Manual) 6 % Eosinophils % (Manual) 1 % Basophils % (Manual) 1 % Band Neutrophils 1 % Reactive Lymphocytes 2 % Toxic Granulation 1+ Hypochromasia MODERATE Poikilocytosis MARKED Basophilic Stippling SLIGHT Anisocytosis MODERATE Stomatocytes MARKED Elliptocytes SLIGHT Sodium Level 141 135-145 MMOL/L Potassium Level 4.9 3.6-5.0 MMOL/L Chloride Level 99 98-107 MMOL/L Carbon Dioxide Level 37 H 21-32 MMOL/L Anion Gap 5 5-14 MMOL/L Blood Urea Nitrogen 31 H 7-18 MG/DL Creatinine 0.78 0.60-1.30 MG/DL Estimat Glomerular Filtration Rate > 60 BUN/Creatinine Ratio 40 Glucose Level 242 H 70-105 MG/DL Calcium Level 9.2 8.5-10.1 MG/DL Total Bilirubin 0.2 0.1-1.0 MG/DL Aspartate Amino Transf (AST/SGOT) 13 5-34 U/L Alanine Aminotransferase (ALT/SGPT) 15 0-55 U/L Alkaline Phosphatase 63 40-136 U/L B-Type Natriuretic Peptide 42.9 <100.0 PG/ML Total Protein 6.3 L 6.4-8.2 GM/DL Albumin 3.6 3.2-4.5 GM/DL Blood Gas Puncture Site L RAD Blood Gas Patient Temperature 98.1 Arterial Blood pH 7.28 *L 7.37-7.43 Arterial Blood Partial Pressure CO2 82 *H 35-45 MMHG Arterial Blood Partial Pressure O2 55 L 79-93 MMHG Arterial Blood HCO3 37 H 23-27 MMOL/L Arterial Blood Total CO2 39.7 H 21.0-31.0 MMOL/L Arterial Blood Oxygen Saturation 93 L 94-100 % Arterial Blood Base Excess 10.3 H -2.5-2.5 MMOL/L [place] Test YES-POS Blood Gas Ventilator Setting NO Blood Gas Inspired Oxygen 5L Urine Color YELLOW Urine Clarity CLEAR Urine pH 5 5-9 Urine Specific [place] 1.025 H 1.016-1.022 Urine Protein 2+ H NEGATIVE Urine Glucose (UA) NEGATIVE NEGATIVE Urine Ketones NEGATIVE NEGATIVE Urine Nitrite NEGATIVE NEGATIVE Urine Bilirubin NEGATIVE NEGATIVE Urine Urobilinogen NORMAL NORMAL MG/DL Urine Leukocyte Esterase 3+ H NEGATIVE Urine RBC (Auto) 1+ H NEGATIVE Urine RBC 0-2 /HPF Urine WBC 10-25 H /HPF Urine Squamous Epithelial Cells 10-25 H /HPF Urine Renal Epithelial Cells NONE /HPF Urine Crystals NONE /LPF Urine Bacteria TRACE /HPF Urine Casts PRESENT /LPF Urine Hyaline Casts 10-25 H /LPF Urine Mucus SMALL H /LPF Urine Culture Indicated YES Lactic Acid Level 0.64 0.50-2.00 MMOL/L My Orders Orders - ARIC KC APRN Ankle, Right, 2 Views (10/30/17 13:22) Chest 1 View, Ap/Pa Only (10/30/17 13:22) Cbc With Automated Diff (10/30/17 13:28) Comprehensive Metabolic Panel (10/30/17 13:28) Ua Culture If Indicated (10/30/17 13:28) BNP (10/30/17 13:28) Ekg Tracing (10/30/17 13:28) Arterial Blood Gas (10/30/17 13:28) Bipap Rt-Rfs (10/30/17 13:32) Manual Differential (10/30/17 13:37) Fentanyl Injection (Sublimaze Injection (10/30/17 14:30) Lidocaine 2% Injection 20 Ml (Xylocaine (10/30/17 14:30) Ankle, Left, 3 Views (10/30/17 14:23) Blood Culture (10/30/17 14:23) Lactic Acid Analyzer (10/30/17 14:23) Ankle, Right, 2 Views (10/30/17 14:23) Urine Culture (10/30/17 14:30) Medications Given in ED Vital Signs/I&O Vital Sign - Last 12Hours 10/30/17 10/30/17 10/30/17 13:20 14:32 14:36 Temp 98.1 98.1 98.1 Pulse 108 Resp 26 B/P (MAP) 138/83 (101) Pulse Ox 85 O2 Delivery Nasal Cannula O2 Flow Rate 6.00 Intake and Output 10/31/17 00:00 Intake Total 500 ml Balance 500 ml Blood Pressure Mean: 101 Diagnostic Imaging Diagonstic Imaging: Xray Comments NAME: LOKESH BARKLEY [facility] REC#: [id number] PT STATUS: REG ER : 1950 PHYSICIAN: ARIC KC APRN ADMIT DATE: 10/30/17/ER Draft Date of Exam:10/30/17 ANKLE, RIGHT, 2 VIEWS INDICATION: Injury to right ankle. TECHNIQUE: AP and lateral views of the right ankle were performed at 1:26 PM. COMPARISON: There is no prior study for comparison. FINDINGS: There is an acute fracture/dislocation of the right ankle. There is an oblique fracture of the distal fibula at the level of the ankle joint with lateral displacement. There is a horizontal fracture of the medial malleolus of the distal tibia. There is lateral displacement of the talus relative to the tibia. IMPRESSION: Fracture/dislocation of the right ankle as described above. Dictated on workstation # [id number] Dict: 10/30/17 1347 Trans: 10/30/17 1408 [id number] Interpreted by: HANDY LEAL MD Electronically signed by: NAME: LOKESH BARKLEY [facility] REC#: [id number] PT STATUS: REG ER : 1950 PHYSICIAN: ARIC KC APRN ADMIT DATE: 10/30/17/ER Draft Date of Exam:10/30/17 CHEST 1 VIEW, AP/PA ONLY INDICATION: Hypoxia. TECHNIQUE: A frontal chest was obtained at 1:30 PM. COMPARISON: 09/30/2017. FINDINGS: There is cardiomegaly and central vascular congestion. There is worsening vascular congestion compared to the prior study. There is new bibasilar infiltrate. There is no pneumothorax or gross pleural fluid. IMPRESSION: Cardiomegaly and central vascular prominence. Patchy bibasilar infiltrates are present which are new or worsening compared to the prior study. There is mild increased central vascular prominence compared to the prior study. Dictated on workstation # [id number] Dict: 10/30/17 1353 Trans: 10/30/17 1417 [id number] Interpreted by: HANDY LEAL MD Electronically signed by: Departure Communication (Admissions) Time/Spoke to Admitting Phy: 15:04 Communication Discussed case with Dr. Bell. We'll admit to the ICU, consult Dr. Soriano, consult Dr. Tipton from orthopedics. Time/Spoke to Consulting Phy: 15:04 Communication/Consulting I spoke with Dr. Vaca is on-call for orthopedics and has relayed the injury to Dr. Tipton who he states will be up to see the patient later today with plan for operative repair this evening either external fixation or ORIF. I also discussed case with Dr. Soriano. He recommends withholding IV antibiotics at this time is unlikely to be pneumonia given the absence of cough, fevers, normal lactic acid and normal white count. We will treat with slight Medrol 40 mg IV every 6 hours and DuoNeb every 4 hours. She remains on BiPAP, bit hesitant to place her on pain medication excessively due to her hypercapnia already. Her pain is well controlled at this time. I did anesthetize the right ankle joint with N milliliters of 2% lidocaine without epinephrine. I then reduced the ankle joint with simple traction and splinted with a posterior short leg and stirrup style splint. Postreduction x-rays are being done this time. Impression Impression: Primary Impression: COPD with acute exacerbation Additional Impression: Fracture dislocation of ankle Disposition: ADMITTED INPATIENT Condition: Stable Admissions Decision to Admit Reason: Admit from ER (General) Decision to Admit/Date: Oct 30, 2017 Time/Decision to Admit Time: 15:06 Departure-Patient Inst. Referrals: RADHA HAYES DO (PCP/Family) Primary Care Physician ARIC KC APRN Oct 30, 2017 13:50
[2017-10-30 14:03] LABS: ALANINE AMINOTRANSFERASE 15 U/L (0-55); ALBUMIN 3.6 GM/DL (3.2-4.5); ALKALINE PHOSPHATASE 63 U/L (40-136); BILIRUBIN,TOTAL 0.2 MG/DL (0.1-1.0); BUN/CREATININE RATIO 40; CALCIUM 9.2 MG/DL (8.5-10.1); CARBON DIOXIDE 37 MMOL/L (21-32); CHLORIDE 99 MMOL/L (98-107); CREATININE SERUM 0.78 MG/DL (0.60-1.30); GFR ESTIMATED > 60; GLUCOSE 242 MG/DL (70-105); POTASSIUM 4.9 MMOL/L (3.6-5.0); SODIUM 141 MMOL/L (135-145); TOTAL PROTEIN 6.3 GM/DL (6.4-8.2)
--- NOTE | 2017-10-30 14:08 | Diagnostic Imaging Report ---
INDICATION: Injury to right ankle. TECHNIQUE: AP and lateral views of the right ankle were performed at 1:26 PM. COMPARISON: There is no prior study for comparison. FINDINGS: There is an acute fracture/dislocation of the right ankle. There is an oblique fracture of the distal fibula at the level of the ankle joint with lateral displacement. There is a horizontal fracture of the medial malleolus of the distal tibia. There is lateral displacement of the talus relative to the tibia. IMPRESSION: Fracture/dislocation of the right ankle as described above. Dictated by: Dictated on workstation # [id number]
[2017-10-30 14:12] LABS: ABG BASE EXCESS 10.3 MMOL/L (-2.5-2.5); ABG OXYGEN SATURATION 93 % (94-100); ABG PO2 55 MMHG (79-93); ABG TCO2 39.7 MMOL/L (21.0-31.0)
[2017-10-30 14:15] LABS: ABG PH 7.28 (7.37-7.43); ALLENS TEST YES-POS; INSPIRED O2 5L; PATIENT TEMP 98.1; VENTILATOR NO
[2017-10-30 14:16] LABS: ABG PCO2 82 MMHG (35-45)
--- NOTE | 2017-10-30 14:18 | Diagnostic Imaging Report ---
INDICATION: Hypoxia. TECHNIQUE: A frontal chest was obtained at 1:30 PM. COMPARISON: 09/30/2017. FINDINGS: There is cardiomegaly and central vascular congestion. There is worsening vascular congestion compared to the prior study. There is new bibasilar infiltrate. There is no pneumothorax or gross pleural fluid. IMPRESSION: Cardiomegaly and central vascular prominence. Patchy bibasilar infiltrates are present which are new or worsening compared to the prior study. There is mild increased central vascular prominence compared to the prior study. Dictated by: Dictated on workstation # [id number]
[2017-10-30] MEDS ORDERED: fentaNYL INJECTION 100 MCG/2 ML AMP IVP ONE (14:30)
[2017-10-30] MEDS ORDERED: LIDOCAINE 2% 20 ML (XYLOCAINE) VIAL INJ ONE (14:30)
[2017-10-30 14:32] LABS: NEUTROPHILS % (MANUAL) 86 %
[2017-10-30 14:34] LABS: BAND NEUTROPHILS 1 %; BASOPHILS % (MANUAL) 1 %; EOSINOPHILS % (MANUAL) 1 %; HYPOCHROMASIA MODERATE; LYMPHOCYTES % (MANUAL) 3 %; MONOCYTES % (MANUAL) 6 %; POIKILOCYTOSIS MARKED; REACTIVE LYMPHOCYTES 2 %
[2017-10-30 14:35] LABS: ANISOCYTOSIS MODERATE; ELLIPT/OVALOCYTES SLIGHT; STOMATOCYTES MARKED
[2017-10-30 14:36] LABS: TOXIC GRANULATION/VACUOLAZATIO 1+
[2017-10-30 14:37] LABS: BILIRUBIN,URINE NEGATIVE (NEGATIVE); CLARITY,URINE CLEAR; COLOR,URINE YELLOW; GLUCOSE, URINE (UA) NEGATIVE (NEGATIVE); KETONES,URINE NEGATIVE (NEGATIVE); LEUKOCYTE ESTERASE ,URINE 3+ (NEGATIVE); NITRITE,URINE NEGATIVE (NEGATIVE); PH,URINE 5 (5-9); PROTEIN,URINE 2+ (NEGATIVE); UROBILINOGEN,URINE NORMAL (NORMAL)
[2017-10-30 14:59] LABS: BACTERIA,URINE TRACE /HPF; RBC,URINE 0-2 /HPF
--- NOTE | 2017-10-30 15:16 | Diagnostic Imaging Report ---
INDICATION: Ankle pain after a fall. COMPARISON: None available. TECHNIQUE: Three views of the left ankle were performed. FINDINGS: No acute fracture or traumatic malalignment. Small plantar and dorsal calcaneal spurs. No osteochondral lesion of the talar dome is identified. Diffuse subcutaneous reticulations are likely due to edema. IMPRESSION: No acute fracture about the left ankle. Dictated by: Dictated on workstation # [id number]
--- NOTE | 2017-10-30 15:19 | Diagnostic Imaging Report ---
INDICATION: Ankle fracture/dislocation. This study is performed postreduction. TIME OF EXAMINATION: 3:03 PM. COMPARISON: Prior study from earlier the same day. FINDINGS: There has been interval reduction of the ankle fracture/dislocation. The tibiotalar alignment is now normal or near-anatomic. The trimalleolar fracture demonstrates significant improved alignment. The ankle mortise is maintained. The talar dome is smooth. There is overlying cast material. IMPRESSION: Interval reduction in the trimalleolar ankle fracture/dislocation when compared with radiographs from earlier the same day. The overall alignment is now near-anatomic. Dictated by: Dictated on workstation # [id number]
[2017-10-30] MEDS ORDERED: cefTRIAXone INJECTION 1,000 MG in NS (IVPB) 100 ML IV ONE (15:45)
[2017-10-30 16:14] LABS: ABG BASE EXCESS 10.9 MMOL/L (-2.5-2.5); ABG OXYGEN SATURATION 98 % (94-100); ABG PO2 105 MMHG (79-93)
[2017-10-30] MEDS ORDERED: fentaNYL INJECTION 100 MCG/2 ML AMP IV PRN (16:15)
[2017-10-30] MEDS ORDERED: CATHETER FLUSH 10 ML SYR IV PRN (16:15)
[2017-10-30 16:19] LABS: ABG PCO2 85 MMHG (35-45); ABG PH 7.27 (7.37-7.43); ALLENS TEST POSITIVE; INSPIRED O2 50% BIPAP; PATIENT TEMP 101; VENTILATOR NO
[2017-10-30] MEDS ORDERED: ACETAMINOPHEN 500 MG TAB (TYLENOL) ONE (16:26)
[2017-10-30] MEDS: ACETAMINOPHEN 325 MG TABLET/CAPLET (TYLENOL) PO PRN (16:36)
[2017-10-30] MEDS ORDERED: VANCOMYCIN INJECTION 0.1 MG in NS (IVPB) 250 ML IV SCH (17:00)
[2017-10-30] MEDS: methylPREDNISolone 40 MG/ML (Solu-MEDROL) VIAL IV SCH (17:14)
[2017-10-30] MEDS: NS IV 1000 ML 1,000 ML IV SCH (17:15)
[2017-10-30] MEDS ORDERED: PIPERACILLIN SODIUM/TAZOBACTAM 4.5 GM in NS (IVPB) 100 ML IV NR (17:30)
[2017-10-30] MEDS ORDERED: VANCOMYCIN 2,500 MG/NS 500 ML IVPB IV NR ×4 (18:00→18:56)
--- NOTE | 2017-10-30 18:28 | History & Physicial ---
History of Present Illness History of Present Illness Reason for visit/HPI Patient fell at home area Patient had a deformed right ankle. Patient brought out by EMS to the emergency room. Patient has a fractured right ankle. Patient pulse ox in the 70s. Arterial blood gas with high PCO2. Patient has elevated temperature. Patient on BiPAP now. Patient desaturates on BiPAP taken off. Patient not is stable for surgery tonight Date of Admission Oct 30, 2017 at 15:09 Time Seen by Provider: 18:25 I consulted on this patient on 10/30/17 18:24 Attending Physician Sina Barros DO Admitting Physician Sina Barros DO Consult Allergies and Home Medications Allergies Coded Allergies: enalapril (Verified Allergy, Severe, ANAPHYLAXIS, 08/22/13) Home Medications Albuterol Sulfate 2.5 Mg/3 Ml Vial.neb, 2.5 MG NEB Q4H PRN for SHORTNESS OF BREATH, (Reported) Alprazolam 0.25 Mg Tablet, 0.25 MG PO DAILY PRN for ANXIETY, (Reported) Amlodipine Besylate 10 Mg Tablet, 10 MG PO DAILY, (Reported) Atorvastatin Calcium 10 Mg Tablet, 10 MG PO HS, (Reported) Budesonide/Formoterol Fumarate 10.2 Gm Hfa.aer.ad, 2 PUFF IH BID, (Reported) Furosemide 40 Mg Tablet, 40 MG PO DAILY, (Reported) LAST FILLED #[id number] 4-28-17 Gabapentin 300 Mg Capsule, 300 MG PO BID, (Reported) Glimepiride 4 Mg Tablet, 4 MG PO BID, (Reported) Hydrocodone/Acetaminophen 1 Each Tablet, 1 TAB PO TID PRN for PAIN-MODERATE, ( Reported) Insulin Aspart 300 Units/3 Ml Solution, SQ AC PRN for SLIDING SCALE BS ABOVE 200 , (Reported) Insulin Detemir 100 Unit/1 Ml Insuln.pen, 15 UNIT SQ 1100, (Reported) Metformin HCl 500 Mg Tablet, 1,000 MG PO BID, (Reported) TAKES 2 (500MG) TABLETS Multivit-Min/FA/Lycopene/Lut 1 Each Tablet, 1 TAB PO DAILY, (Reported) Naproxen 500 Mg Tablet, 500 MG PO BID, (Reported) Potassium Chloride 10 Meq Capsule.er, 10 MEQ PO HS, (Reported) Pramipexole Di-HCl 1 Mg Tablet, 1 MG PO HS, (Reported) Prednisone 10 Mg Tab, 10 MG PO DAILY Prescribed by: BEVERLEY MUSE on 10/01/17 1128 Sertraline HCl 50 Mg Tablet, 50 MG PO HS, (Reported) Tiotropium [place] 4 Gm Mist.inhal, 2 PUFF IH DAILY, (Reported) Patient Home Medication List Home Medication List Reviewed: No Past Nfehmqw-Hepdro-[place] Hx Patient Social History Marrital Status: Employed/Student: unemployed Alcohol Use: Denies Use Recreational Drug Use: No Smoking Status: Former Smoker Former Smoker, Quit: Aug 25, 2012 Type Used: Cigarettes 2nd Hand Smoke Exposure: Yes Recent Foreign Travel: No Contact w/other who traveled: No Recent Hopitalizations: No Recent Infectious Disease Expo: No Immunizations Up To Date Tetanus Booster (TDap): Less than 5yrs Pediatric: No Date of Pneumonia Vaccine: May 21, 2013 Date of Influenza Vaccine: May 25, 2017 Seasonal Allergies Seasonal Allergies: No Surgeries Yes (TOTAL right hip, carpul tunnel bilat, LEFT KNEE SX, RIGHT ANKLE) Gallbladder, Joint Replacement, Orthopedic Respiratory Yes COPD Currently Using CPAP: No Currently Using BIPAP: No Cardiovascular Yes Chronic Edema/Swelling, Hypertension Neurological Yes Neuropathy 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 System Hx 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 Disorders: No Sexually Transmitted Disease: No HIV/AIDS: No Female 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 Genitourinary No Gastrointestinal Yes Gastroesophageal Reflux, Chronic Constipation, Diverticulosis, Hemorrhoids, Polyps, Hiatal Hernia, Gall Bladder Disease Musculoskeletal Yes Degenerate Disk Disease, Arthritis, Chronic Back Pain Endocrine History of Endocrine Disorders: Yes Endocrine Disorders: Diabetes, Insulin dep HEENT History of HEENT Disorders: No HEENT Disorders: Cataract Loss of Vision: Denies Hearing Impairment: Denies Cancer No Psychosocial History of Psychiatric Problem: Yes Behavioral Health Disorders: Sleep Difficulties, Anxiety, Depression Integumentary History of Skin or Integumenta: No Blood Transfusions History of Blood Disorders: No Adverse Reaction to a Blood Tr: No Family Medical History Significant Family History: Heart Disease, COPD, Hypertension, Lung Disease Family Hx: Completed stroke 09 BROTHER Family history: Asthma 03 MOTHER History of - respiratory disease 03 FATHER (PNEUMONIA) 03 MOTHER (ASTHMA, COPD) Constitutional: weakness EENTM: no symptoms reported Respiratory: short of breath, wheezing Cardiovascular: no symptoms reported Gastrointestinal: no symptoms reported Genitourinary: no symptoms reported Physical Exam Vital Signs Vital Signs - First Documented 10/30/17 13:20 Temp 98.1 Pulse 108 Resp 26 B/P (MAP) 138/83 (101) Pulse Ox 85 O2 Delivery Nasal Cannula O2 Flow Rate 6.00 Capillary Refill : Less Than 3 Seconds General Appearance: No Apparent Distress, WD/WN Eyes: Bilateral Eye Normal Inspection HEENT: Normal ENT Inspection, Other (He should not BiPAP) Neck: Normal Inspection Respiratory: Decreased Breath Sounds Cardiovascular: Regular Rate, Rhythm Gastrointestinal: Non Tender, Soft Assessment/Plan Assessment and Plan Fractured right ankle. COPD with acute exacerbation. Diabetes. History of CHF. Arthritis. Problems: Admission Diagnosis Admission Status: Inpatient Order (span 2 midnights) Reason for Inpatient Admission: Patient needs surgery. Patient has COPD with acute exacerbation. Patient diabetic with Solu-Medrol sugars will go high SINA BARROS DO Oct 30, 2017 18:28
[2017-10-30 18:37] LABS: ABG BASE EXCESS 10.8 MMOL/L (-2.5-2.5); ABG OXYGEN SATURATION 99 % (94-100); ABG PO2 112 MMHG (79-93); ABG TCO2 39.4 MMOL/L (21.0-31.0)
[2017-10-30] MEDS ORDERED: IBUPROFEN TABLET 200 MG TAB PO ONE (18:38)
[2017-10-30 18:39] LABS: ABG PCO2 82 MMHG (35-45); ABG PH 7.29 (7.37-7.43); ALLENS TEST POSITIVE; INSPIRED O2 50% BIPAP; PATIENT TEMP 101.8; VENTILATOR NO
[2017-10-30] MEDS: RT-ALBUTEROL/IPRATROPIUM 3 ML (DUONEB) VIAL INH SCH ×2 (18:42→22:04)
[2017-10-30] MEDS ORDERED: IBUPROFEN TABLET 200 MG TAB PO NR (18:45)
[2017-10-30] MEDS ORDERED: HALOPERIDOL 5 MG/ML (HALDOL) AMP IV NR ×2 (19:04→20:20)
[2017-10-30] MEDS ORDERED: NS (IVPB) 50 ML ONE (20:06)
[2017-10-30] MEDS: fentaNYL INJECTION 100 MCG/2 ML AMP IV PRN (20:17)
[2017-10-30] MEDS: NS IV SCH ×4 (20:20→22:11)
[2017-10-30] MEDS: DEXMEDETOMIDINE IV SCH ×4 (20:20→22:11)
[2017-10-30] MEDS ORDERED: RT-ALBUINH IH (20:35)
[2017-10-30] MEDS ORDERED: OXYM30SP11 NS (20:35)
[2017-10-30] MEDS ORDERED: ACET-2469 PO (20:35)
[2017-10-30] MEDS ORDERED: RT-SYMBICORT 160/4.5 MCG INHALER PER PUFF IH SCH (21:00)
[2017-10-30] MEDS ORDERED: NON-FORMULARY MEDICATION 1 EA EA (Pramipexole Di-HCl (Pramipexole Dihydrochloride) 1 MG) PO SCH (21:00)
[2017-10-30] MEDS ORDERED: NON-FORMULARY MEDICATION 1 EA EA (Potassium Chloride 10 MEQ) PO SCH (21:00)
[2017-10-30] MEDS: GLIMEPIRIDE 4 MG (AMARYL) TAB PO SCH (21:06)
[2017-10-30] MEDS: GABAPENTIN 300 MG (NEURONTIN) CAP PO SCH (21:07)
[2017-10-30] MEDS: metFORMIN 500 MG (GLUCOPHAGE) TAB PO SCH (21:07)
[2017-10-30] MEDS: SERTRALINE 50 MG (ZOLOFT) TABLET PO SCH (21:07)
[2017-10-30] MEDS: ATORVASTATIN 10 MG (LIPITOR) TABLET PO SCH (21:07)
[2017-10-30] MEDS ORDERED: LORazepam INJ 2 MG/ML (ATIVAN) VIAL ONE (22:15)
[2017-10-30 23:14] LABS: ABG BASE EXCESS 8.6 MMOL/L (-2.5-2.5); ABG OXYGEN SATURATION 97 % (94-100); ABG PCO2 70 MMHG (35-45); ABG PO2 87 MMHG (79-93); ABG TCO2 36.8 MMOL/L (21.0-31.0)
[2017-10-30 23:16] LABS: ABG PH 7.32 (7.37-7.43)
[2017-10-30 23:17] LABS: ALLENS TEST POSITIVE; INSPIRED O2 50% BIPAP; PATIENT TEMP 98.9; VENTILATOR NO
[2017-10-30] MEDS: PIPERACILLIN SODIUM/TAZOBACTAM 4.5 GM in NS (IVPB) 100 ML IV SCH (23:30)
[2017-10-31] VITALS (31 sets, daily range): BP systolic 128–185; BP diastolic 64–117
[2017-10-31] MEDS: NS IV 1000 ML 1,000 ML IV SCH ×4 (00:19→22:07)
[2017-10-31] MEDS: methylPREDNISolone 40 MG/ML (Solu-MEDROL) VIAL IV SCH ×5 (00:24→23:56)
[2017-10-31] MEDS: inSUlin (REGULAR) HUMAN 1 UNIT/0.01 ML (CHARGE PER UNIT) SC SCH ×5 (00:25→23:59)
[2017-10-31] MEDS: RT-ALBUTEROL/IPRATROPIUM 3 ML (DUONEB) VIAL INH SCH ×6 (03:23→21:52)
[2017-10-31 03:47] LABS: BASOPHILS % (AUTO) 0 % (0-10); EOSINOPHILS % (AUTO) 0 % (0-10); HEMATOCRIT 28 % (35-52); HEMOGLOBIN 8.1 G/DL (11.5-16.0); LYMPHOCYTES # (AUTO) 0.2 X 10^3 (1.0-4.0); LYMPHOCYTES % (AUTO) 2 % (12-44); MEAN CORPUSCULAR HEMOGLOBIN 25 PG (25-34); MEAN CORPUSCULAR HGB CONC 29 G/DL (32-36); MEAN CORPUSCULAR VOLUME 88 FL (80-99); MEAN PLATELET VOLUME 11.8 FL (7.4-10.4); MONOCYTES # (AUTO) 0.2 X 10^3 (0.0-1.0); MONOCYTES % (AUTO) 2 % (0-12); NEUTROPHILS % (AUTO) 95 % (42-75); PLATELET COUNT 252 10^3/uL (130-400); RED BLOOD COUNT 3.23 10^6/uL (4.35-5.85); RED CELL DISTRIBUTION WIDTH 16.1 % (10.0-14.5); WHITE BLOOD COUNT 8.4 10^3/uL (4.3-11.0)
[2017-10-31 03:54] LABS: ABG BASE EXCESS 9.3 MMOL/L (-2.5-2.5); ABG OXYGEN SATURATION 98 % (94-100); ABG PCO2 62 MMHG (35-45); ABG PH 7.37 (7.37-7.43); ABG PO2 82 MMHG (79-93); ABG TCO2 36.6 MMOL/L (21.0-31.0); ALLENS TEST YES-POS; INSPIRED O2 45%
[2017-10-31 03:55] LABS: PATIENT TEMP 98.6
[2017-10-31 04:01] LABS: VENTILATOR NO
[2017-10-31 04:05] LABS: BUN/CREATININE RATIO 40; CALCIUM 9.1 MG/DL (8.5-10.1); CARBON DIOXIDE 33 MMOL/L (21-32); CHLORIDE 103 MMOL/L (98-107); CREATININE SERUM 0.78 MG/DL (0.60-1.30); GFR ESTIMATED > 60; GLUCOSE 204 MG/DL (70-105); PHOSPHORUS 2.2 MG/DL (2.3-4.7); POTASSIUM 5.4 MMOL/L (3.6-5.0); SODIUM 141 MMOL/L (135-145)
--- NOTE | 2017-10-31 05:26 | Pulmonary Consultation ---
History of Present Illness History of Present Illness Date of Consultation 10/31/17 05:21 Date of Admission Allergies and Home Medications Allergies Coded Allergies: enalapril (Verified Allergy, Severe, ANAPHYLAXIS, 08/22/13) Home Medications Acetaminophen/Diphenhydramine 1 Each Tablet, 2 EACH PO HS, (Reported) Albuterol Sulfate 2.5 Mg/3 Ml Vial.neb, 2.5 MG NEB Q4H PRN for SHORTNESS OF BREATH, (Reported) Albuterol Sulfate 1 Puff Puff, 2 PUFF IH QID PRN for SHORTNESS OF BREATH, ( Reported) 1 PUFF = 90 MCG Amlodipine Besylate 10 Mg Tablet, 10 MG PO DAILY, (Reported) Atorvastatin Calcium 10 Mg Tablet, 10 MG PO HS, (Reported) Budesonide/Formoterol Fumarate 10.2 Gm Hfa.aer.ad, 2 PUFF IH BID, (Reported) Furosemide 40 Mg Tablet, 40 MG PO DAILY, (Reported) Gabapentin 300 Mg Capsule, 300 MG PO BID, (Reported) Glimepiride 4 Mg Tablet, 4 MG PO BID, (Reported) Hydrocodone/Acetaminophen 1 Each Tablet, 1 TAB PO QID PRN for PAIN-MODERATE, ( Reported) Insulin Detemir 100 Unit/1 Ml Insuln.pen, 15 UNIT SQ 1100, (Reported) Metformin HCl 500 Mg Tablet, 1,000 MG PO BID, (Reported) TAKES 2 (500MG) TABLETS Multivit-Min/FA/Lycopene/Lut 1 Each Tablet, 1 TAB PO DAILY, (Reported) Naproxen 500 Mg Tablet, 500 MG PO BID, (Reported) Oxymetazoline HCl 30 Ml [place], 2 SPRAY NS Q4H PRN for CONGESTION, (Reported) Potassium Chloride 10 Meq Capsule.er, 10 MEQ PO HS, (Reported) Pramipexole Di-HCl 1 Mg Tablet, 1 MG PO HS, (Reported) Sertraline HCl 50 Mg Tablet, 50 MG PO HS, (Reported) Tiotropium [place] 4 Gm Mist.inhal, 2 PUFF IH DAILY, (Reported) Past Cwlsarl-Niaqzm-[place] Hx Patient Social History Alcohol Use: Denies Use Recreational Drug Use: No Smoking Status: Current Everyday Smoker Type Used: Electronic/Vapor Former Smoker, Quit: Aug 25, 2012 2nd Hand Smoke Exposure: Yes Recent Foreign Travel: No Contact w/Someone Who Travel: No Recent Infectious Disease Expo: No Recent Hopitalizations: No Physical Abuse: No Sexual Abuse: No Mistreated: No Fear: No Immunizations Up To Date Tetanus Booster (TDap): Less than 5yrs PED Vaccines UTD: No Date of Pneumonia Vaccine: May 21, 2013 Date of Influenza Vaccine: May 25, 2017 Seasonal Allergies Seasonal Allergies: No Surgeries History of Surgeries: Yes (TOTAL right hip, carpul tunnel bilat, LEFT KNEE SX, RIGHT ANKLE) Surgeries: Gallbladder, Joint Replacement, Orthopedic Respiratory History of Respiratory Disorde: Yes Respiratory Disorders: Asthma, Pneumonia, Chronic Bronchitis, COPD, Emphysema Currently Using CPAP: No Currently Using BIPAP: No Cardiovascular History of Cardiac Disorders: Yes Cardiac Disorders: Chronic Edema/Swelling, Hypertension Neurological History of Neurological Disord: Yes Neurological Disorders: Neuropathy 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 System Hx 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 Disorders: No Sexually Transmitted Disease: No HIV/AIDS: No 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 Genitourinary History of Genitourinary Disor: No Gastrointestinal History of Gastrointestinal Di: Yes Gastrointestinal Disorders: Gastroesophageal Reflux, Chronic Constipation, Diverticulosis, Hemorrhoids, Polyps, Hiatal Hernia, Gall Bladder Disease Musculoskeletal History of Musculoskeletal Dis: Yes Musculoskeletal Disorders: Degenerate Disk Disease, Arthritis, Chronic Back Pain Endocrine History of Endocrine Disorders: Yes Endocrine Disorders: Diabetes, Insulin dep HEENT History of HEENT Disorders: No HEENT Disorders: Cataract Loss of Vision: Denies Hearing Impairment: Denies Cancer History of Cancer: No Psychosocial History of Psychiatric Problem: Yes Behavioral Health Disorders: Sleep Difficulties, Anxiety, Depression Suicide Risk Score: 0 Integumentary History of Skin or Integumenta: No Blood Transfusions History of Blood Disorders: No Adverse Reaction to a Blood Tr: No Family Medical History Significant Family History: Heart Disease, COPD, Hypertension, Lung Disease Family Medial History: Completed stroke 09 BROTHER Family history: Asthma 03 MOTHER History of - respiratory disease 03 FATHER (PNEUMONIA) 03 MOTHER (ASTHMA, COPD) Exam Exam Vital Signs Date Time Temp Pulse Resp B/P (MAP) Pulse Ox O2 Delivery O2 Flow Rate FiO2 10/31/17 04:00 98.6 10/31/17 04:00 98 NIV Bilevel 50 10/31/17 04:00 70 17 130/75 (93) 100 NIV Bilevel 45.00 10/31/17 03:27 61 12 97 NIV Bilevel 45.00 10/31/17 03:23 61 17 98 50.00 10/31/17 03:00 62 20 152/93 (112) 97 NIV Bilevel 50.00 10/31/17 02:00 65 15 140/86 (104) 99 NIV Bilevel 50.00 10/31/17 01:05 68 22 100 50.00 10/31/17 01:00 69 20 136/78 (97) 99 NIV Bilevel 50.00 10/31/17 01:00 69 10/31/17 00:00 98 NIV Bilevel 50 10/31/17 00:00 70 26 140/96 (111) 98 NIV Bilevel 50.00 10/30/17 23:00 98.9 72 23 130/76 (94) 96 NIV Bilevel 50.00 10/30/17 22:04 77 22 99 50.00 10/30/17 22:00 78 23 116/72 (87) 99 NIV Bilevel 50.00 10/30/17 21:00 97 13 112/82 (92) 100 NIV Bilevel 50.00 10/30/17 20:00 100.2 115 22 137/56 (83) 97 NIV Bilevel 50.00 10/30/17 20:00 111 98 50.00 10/30/17 20:00 100.2 10/30/17 19:09 101.8 10/30/17 19:00 104 34 139/76 (97) 94 NIV Bilevel 50.00 10/30/17 19:00 104 10/30/17 18:42 96 19 98 50.00 10/30/17 18:00 90 18 135/91 (106) 100 NIV Bilevel 40.00 10/30/17 17:26 100.5 NIV Bilevel 40.00 10/30/17 17:06 101.0 10/30/17 17:00 107 97 40.00 10/30/17 17:00 98 15 109/93 (98) 98 NIV Bilevel 40.00 10/30/17 16:36 101.0 10/30/17 16:00 98 27 129/79 (96) 99 NIV Bilevel 50.00 10/30/17 15:57 98 10/30/17 15:50 NIV Bilevel 50 10/30/17 15:45 101.0 99 16 130/74 (92) 99 NIV Bilevel 50.00 10/30/17 15:22 98.0 98 20 153/81 97 NIV Bilevel 10/30/17 14:36 98.1 10/30/17 14:32 98.1 10/30/17 13:20 98.1 108 26 138/83 (101) 85 Nasal Cannula 6.00 I & O 10/31/17 07:00 Intake Total 2550 ml Output Total 775 ml Balance 1775 ml General Appearance: No Apparent Distress, WD/WN HEENT: Normal ENT Inspection, Other (He should not BiPAP) Neck: Normal Inspection Respiratory: Decreased Breath Sounds Cardiovascular: Regular Rate, Rhythm Capillary Refill: Less Than 3 Seconds Gastrointestinal: normal bowel sounds, non tender, soft Results Lab Laboratory Tests 10/30/17 13:37 10/31/17 03:15 Assessment/Plan Assessment/Plan Acute ankle fracture -TO surgery when medical stable -Hold off on surgery until Friday if possible Acute on chronic respiratory failure COPDAE-- pt is on 3 liters of oxygen at home -Solumedrol 40 IV Q 6 -SVNs Q 4 MICHAEL with obesity Acute UTI -Cont zosyn -D/C vanco Acute psychosis -Pt received ativan, haldol and precedex, fentanyl 255 MK RAMOS DO Oct 31, 2017 05:26
[2017-10-31] MEDS ORDERED: VANCOMYCIN 1500 MG/NS 500 ML IVPB IV SCH ×2 (06:00)
--- NOTE | 2017-10-31 07:17 | Progress Note (SOAP) ---
Subjective Time Seen by Provider: 07:15 Subjective/Events-last exam Patient resting comfortably this morning. Patient confused last night and psychotic. Patient had hypercapnia. Patient has COPD with acute exacerbation. MICHAEL with obesity. Acute UTI. Objective Exam Vital Signs Date Time Temp Pulse Resp B/P (MAP) Pulse Ox O2 Delivery O2 Flow Rate FiO2 10/31/17 06:55 62 29 98 40.00 10/31/17 06:00 61 13 131/77 (95) 97 NIV Bilevel 45.00 10/31/17 05:00 64 20 128/78 (95) 98 NIV Bilevel 45.00 10/31/17 04:00 98.6 10/31/17 04:00 98 NIV Bilevel 50 10/31/17 04:00 70 17 130/75 (93) 100 NIV Bilevel 45.00 10/31/17 03:27 61 12 97 NIV Bilevel 45.00 10/31/17 03:23 61 17 98 50.00 10/31/17 03:00 62 20 152/93 (112) 97 NIV Bilevel 50.00 10/31/17 02:00 65 15 140/86 (104) 99 NIV Bilevel 50.00 10/31/17 01:05 68 22 100 50.00 10/31/17 01:00 69 20 136/78 (97) 99 NIV Bilevel 50.00 10/31/17 01:00 69 10/31/17 00:00 98 NIV Bilevel 50 10/31/17 00:00 70 26 140/96 (111) 98 NIV Bilevel 50.00 10/30/17 23:00 98.9 72 23 130/76 (94) 96 NIV Bilevel 50.00 10/30/17 22:04 77 22 99 50.00 10/30/17 22:00 78 23 116/72 (87) 99 NIV Bilevel 50.00 10/30/17 21:00 97 13 112/82 (92) 100 NIV Bilevel 50.00 10/30/17 20:00 100.2 115 22 137/56 (83) 97 NIV Bilevel 50.00 10/30/17 20:00 111 98 50.00 10/30/17 20:00 100.2 10/30/17 19:09 101.8 10/30/17 19:00 104 34 139/76 (97) 94 NIV Bilevel 50.00 10/30/17 19:00 104 10/30/17 18:42 96 19 98 50.00 10/30/17 18:00 90 18 135/91 (106) 100 NIV Bilevel 40.00 10/30/17 17:26 100.5 NIV Bilevel 40.00 10/30/17 17:06 101.0 10/30/17 17:00 107 97 40.00 10/30/17 17:00 98 15 109/93 (98) 98 NIV Bilevel 40.00 10/30/17 16:36 101.0 10/30/17 16:00 98 27 129/79 (96) 99 NIV Bilevel 50.00 10/30/17 15:57 98 10/30/17 15:50 NIV Bilevel 50 10/30/17 15:45 101.0 99 16 130/74 (92) 99 NIV Bilevel 50.00 10/30/17 15:22 98.0 98 20 153/81 97 NIV Bilevel 10/30/17 14:36 98.1 10/30/17 14:32 98.1 10/30/17 13:20 98.1 108 26 138/83 (101) 85 Nasal Cannula 6.00 I & O 10/31/17 07:00 Intake Total 3050 ml Output Total 975 ml Balance 2075 ml Capillary Refill : Less Than 3 SecondsLess Than 3 Seconds General Appearance: No Apparent Distress, WD/WN HEENT: Normal ENT Inspection Neck: Normal Inspection Respiratory: No Accessory Muscle Use, No Respiratory Distress Cardiovascular: Regular Rate, Rhythm Gastrointestinal: non tender, soft Results Lab Laboratory Tests 10/30/17 13:37 10/31/17 03:15 Laboratory Tests 10/30/17 13:37: White Blood Count 10.2, Red Blood Count 3.54L, Hemoglobin 8.8L, Hematocrit 32L, Mean Corpuscular Volume 89, Mean Corpuscular Hemoglobin 25, Mean Corpuscular Hemoglobin Concent 28L, Red Cell Distribution Width 16.0H, Platelet Count 287, Mean Platelet Volume 11.3H, Neutrophils (%) (Auto) 86H, Lymphocytes (%) (Auto) 9L, Monocytes (%) (Auto) 5, Eosinophils (%) (Auto) 0, Basophils (%) (Auto) 0, Neutrophils # (Auto) 8.8H, Lymphocytes # (Auto) 0.9L, Monocytes # (Auto) 0.5, Eosinophils # (Auto) 0.0, Basophils # (Auto) 0.0, Neutrophils % (Manual) 86, Lymphocytes % (Manual) 3, Monocytes % (Manual) 6, Eosinophils % (Manual) 1, Basophils % (Manual) 1, Band Neutrophils 1, Reactive Lymphocytes 2, Toxic Granulation 1+, Hypochromasia MODERATE, Poikilocytosis MARKED, Basophilic Stippling SLIGHT, Anisocytosis MODERATE, Stomatocytes MARKED, Elliptocytes SLIGHT, Sodium Level 141, Potassium Level 4.9, Chloride Level 99, Carbon Dioxide Level 37H, Anion Gap 5, Blood Urea Nitrogen 31H, Creatinine 0.78, Estimat Glomerular Filtration Rate > 60, BUN/Creatinine Ratio 40, Glucose Level 242H, Calcium Level 9.2, Total Bilirubin 0.2, Aspartate Amino Transf (AST/SGOT) 13, Alanine Aminotransferase (ALT/SGPT) 15, Alkaline Phosphatase 63, B-Type Natriuretic Peptide 42.9, Total Protein 6.3L, Albumin 3.6 10/30/17 14:01: Blood Gas Puncture Site L RAD, Blood Gas Patient Temperature 98.1, Arterial Blood pH 7.28*L, Arterial Blood Partial Pressure CO2 82*H, Arterial Blood Partial Pressure O2 55L, Arterial Blood HCO3 37H, Arterial Blood Total CO2 39.7H , Arterial Blood Oxygen Saturation 93L, Arterial Blood Base Excess 10.3H, [place] Test YES-POS, Blood Gas Ventilator Setting NO, Blood Gas Inspired Oxygen 5L 10/30/17 14:30: Urine Color YELLOW, Urine Clarity CLEAR, Urine pH 5, Urine Specific [place] 1.025H, Urine Protein 2+H, Urine Glucose (UA) NEGATIVE, Urine Ketones NEGATIVE, Urine Nitrite NEGATIVE, Urine Bilirubin NEGATIVE, Urine Urobilinogen NORMAL, Urine Leukocyte Esterase 3+H, Urine RBC (Auto) 1+H, Urine RBC 0-2, Urine WBC 10- 25H, Urine Squamous Epithelial Cells 10-25H, Urine Renal Epithelial Cells NONE, Urine Crystals NONE, Urine Bacteria TRACE, Urine Casts PRESENT, Urine Hyaline Casts 10-25H, Urine Mucus SMALLH, Urine Culture Indicated YES, Lactic Acid Level 0.64 10/30/17 16:04: Blood Gas Puncture Site LEFT RADIAL, Blood Gas Patient Temperature 101, Arterial Blood pH 7.27*L, Arterial Blood Partial Pressure CO2 85*H, Arterial Blood Partial Pressure O2 105H, Arterial Blood HCO3 38H, Arterial Blood Total CO2 40.0H, Arterial Blood Oxygen Saturation 98, Arterial Blood Base Excess 10.9H , [place] Test POSITIVE, Blood Gas Ventilator Setting NO, Blood Gas Inspired Oxygen 50% BIPAP 10/30/17 17:25: Lactic Acid Level 0.72 10/30/17 18:30: Blood Gas Puncture Site LEFT RADIAL, Blood Gas Patient Temperature 101.8, Arterial Blood pH 7.29*L, Arterial Blood Partial Pressure CO2 82*H, Arterial Blood Partial Pressure O2 112H, Arterial Blood HCO3 37H, Arterial Blood Total CO2 39.4H, Arterial Blood Oxygen Saturation 99, Arterial Blood Base Excess 10.8H , [place] Test POSITIVE, Blood Gas Ventilator Setting NO, Blood Gas Inspired Oxygen 50% BIPAP 10/30/17 19:21: Glucometer 136H 10/30/17 23:05: Blood Gas Puncture Site RIGHT RADIAL, Blood Gas Patient Temperature 98.9, Arterial Blood pH 7.32*L, Arterial Blood Partial Pressure CO2 70H, Arterial Blood Partial Pressure O2 87, Arterial Blood HCO3 35H, Arterial Blood Total CO2 36.8H, Arterial Blood Oxygen Saturation 97, Arterial Blood Base Excess 8.6H, [place] Test POSITIVE, Blood Gas Ventilator Setting NO, Blood Gas Inspired Oxygen 50% BIPAP 10/31/17 00:20: Glucometer 223H 10/31/17 03:15: White Blood Count 8.4, Red Blood Count 3.23L, Hemoglobin 8.1L, Hematocrit 28L, Mean Corpuscular Volume 88, Mean Corpuscular Hemoglobin 25, Mean Corpuscular Hemoglobin Concent 29L, Red Cell Distribution Width 16.1H, Platelet Count 252, Mean Platelet Volume 11.8H, Neutrophils (%) (Auto) 95H, Lymphocytes (%) (Auto) 2L, Monocytes (%) (Auto) 2, Eosinophils (%) (Auto) 0, Basophils (%) (Auto) 0, Neutrophils # (Auto) 8.0H, Lymphocytes # (Auto) 0.2L, Monocytes # (Auto) 0.2, Eosinophils # (Auto) 0.0, Basophils # (Auto) 0.0, Sodium Level 141, Potassium Level 5.4H, Chloride Level 103, Carbon Dioxide Level 33H, Anion Gap 5, Blood Urea Nitrogen 31H, Creatinine 0.78, Estimat Glomerular Filtration Rate > 60, BUN /Creatinine Ratio 40, Glucose Level 204H, Calcium Level 9.1, Phosphorus Level 2.2L, Magnesium Level 2.0, B-Type Natriuretic Peptide 26.9 10/31/17 03:40: Blood Gas Puncture Site RIGHT RADIAL, Blood Gas Patient Temperature 98.6, Arterial Blood pH 7.37, Arterial Blood Partial Pressure CO2 62H, Arterial Blood Partial Pressure O2 82, Arterial Blood HCO3 35H, Arterial Blood Total CO2 36.6H , Arterial Blood Oxygen Saturation 98, Arterial Blood Base Excess 9.3H, [place] Test YES-POS, Blood Gas Ventilator Setting NO, Blood Gas Inspired Oxygen 45% Assessment/Plan Assessment/Plan Assess & Plan/Chief Complaint Right acute ankle fracture Acute on chronic respiratory failure. COPD with acute exacerbation. MICHAEL with obesity. Acute UTI. Diabetes. Hypercapnia. Confusion Clinical Quality Measures Admission Status Admission Dx Fractured right ankle. COPD with acute exacerbation. Diabetes. History of CHF. Arthritis. DVT/VTE Risk/Contraindication: Risk Factor Score Per Nursin RFS Level Per Nursing on Admit: 4+=Very High Contraindications-Pharm: Other *list below* Contraindications-Mechi: Other *list below* RADHA HAYES DO Oct 31, 2017 07:17
--- NOTE | 2017-10-31 08:06 | Diagnostic Imaging Report ---
EXAMINATION: Chest radiograph, portable AP view. DATE: 10/31/2012 at 0208 hours. INDICATION: 66-year-old female, dyspnea. COMPARISON: 11/11/2017. FINDINGS: The patient is rotated. Grossly unchanged overall appearance of the cardiomediastinal silhouette. Patient's chin positioning does obscure visualization of the right lung apex. There is no identified pneumothorax. There is no large pleural effusion. There are predominantly linear opacities in the left lung base most likely reflecting subsegmental atelectasis or scarring. There are nonspecific streaky opacities in the right lung base which are grossly unchanged. There are slightly prominent pulmonary vascular markings IMPRESSION: 1. Grossly unchanged streaky opacities in the right lung base. 2. Redemonstrated slightly prominent pulmonary vascular markings which may relate to mild pulmonary vascular congestion. Dictated by: Dictated on workstation # [id number]
[2017-10-31] MEDS: MULTIVIT W/MINERALS TAB (THERAGRAN M) PO SCH (08:53)
[2017-10-31] MEDS: PRAMIPEXOLE 0.5 MG TAB (MIRAPEX) PO SCH (09:00)
[2017-10-31] MEDS: metFORMIN 500 MG (GLUCOPHAGE) TAB PO SCH ×2 (09:00→20:59)
[2017-10-31] MEDS: GLIMEPIRIDE 4 MG (AMARYL) TAB PO SCH ×2 (09:00→20:59)
[2017-10-31] MEDS: GABAPENTIN 300 MG (NEURONTIN) CAP PO SCH ×2 (09:00→21:00)
[2017-10-31] MEDS ORDERED: NON-FORMULARY MEDICATION 1 EA EA (Tiotropium Bromide (Spiriva Respimat 2.5MCG/ACTUATION) 2 IH SCH (09:00)
[2017-10-31] MEDS ORDERED: cefTRIAXone 1 GM/NS 100 ML IVPB IV SCH ×2 (09:00)
[2017-10-31] MEDS ORDERED: FUROSEMIDE 40 MG (LASIX) TAB PO SCH (09:00)
[2017-10-31] MEDS: risperiDONE 0.25 MG (RisperDAL) TAB PO SCH ×2 (09:00→21:00)
[2017-10-31] MEDS: amLODIPine 10 MG (NORVASC) TAB PO SCH (09:00)
[2017-10-31] MEDS: PANTOPRAZOLE 40 MG/10 ML (PROTONIX) VIAL IV SCH (10:49)
[2017-10-31] MEDS: PIPERACILLIN SODIUM/TAZOBACTAM 4.5 GM in NS (IVPB) 100 ML IV SCH ×2 (10:49→18:14)
[2017-10-31] MEDS ORDERED: NON-FORMULARY MEDICATION 1 EA EA (Insulin Detemir (Levemir Flextouch) 15 UNIT) SQ SCH (11:00)
[2017-10-31] MEDS: NS IV SCH ×4 (11:10→21:04)
[2017-10-31] MEDS: DEXMEDETOMIDINE IV SCH ×4 (11:10→21:04)
[2017-10-31] MEDS: HALOPERIDOL 5 MG/ML (HALDOL) AMP IV PRN ×2 (11:20→19:37)
[2017-10-31] MEDS: inSUlin DETERMIR 1 UNIT/0.01 ML (LEVEMIR) CHARGE PER UNIT SQ SCH (11:20)
--- NOTE | 2017-10-31 12:07 | Occ Therapy Progress Note ---
Therapy Progress Note Order received for OT eval and treat. Chart review completed. Pt admitted with right ankle fracture, but has not been medically stable for surgical intervention. Pt is on Bi-pap and will await surgery when medically cleared. Will hold OT at this time and monitor pt status. Will initiate OT evaluation when appropriate. Discussed plan of care with pt's RN. NATANAEL DICKENS OT Oct 31, 2017 12:07
[2017-10-31 12:59] LABS: ABG BASE EXCESS 6.4 MMOL/L (-2.5-2.5); ABG OXYGEN SATURATION 98 % (94-100); ABG PCO2 58 MMHG (35-45); ABG PH 7.36 (7.37-7.43); ABG PO2 92 MMHG (79-93); ABG TCO2 33.7 MMOL/L (21.0-31.0)
[2017-10-31 13:01] LABS: ALLENS TEST POSITIVE; INSPIRED O2 40% BIPAP; PATIENT TEMP 97.4; VENTILATOR NO
[2017-10-31] MEDS: RT-ADVAIR HFA 115/21 MCG PER PUFF IH SCH ×2 (13:30→21:52)
[2017-10-31] MEDS: UMECLIDINIUM BROMIDE (INCRUSE ELLIPTA) 7'S IH SCH (13:31)
[2017-10-31] MEDS: LORazepam INJ 2 MG/ML (ATIVAN) VIAL IV PRN ×2 (15:27→23:56)
[2017-10-31] MEDS: meTOprolol 5 MG/5 ML (LOPRESSOR) VIAL IV PRN ×2 (16:14→21:43)
[2017-10-31] MEDS: fentaNYL INJECTION 100 MCG/2 ML AMP IV PRN ×3 (16:43→22:24)
--- NOTE | 2017-10-31 18:30 | Consultation ---
History of Present Illness History of Present Illness Patient Consulted On(kevin/time) 10/31/17 18:24 Date Seen by Provider: Oct 30, 2017 Time Seen by Provider: 16:15 Reason for Visit: Right ankle fracture, respiratory distress History of Present Illness Ms. Song is a 66 y/o female that presented to the [facility] ED with CC of acute onset of severe Right ankle pain, gross deformity and an inability to ambulate/bear weight on her RLE secondary to a mechanical GLF. Upon presentation to the ED plain XRs of the Right ankle demonstrated a fracture dislocation. She underwent a successful reduction per ED staff and was placed in a stabilizing splint. The patient does not remember all of the details surrounding her fall. She denies other musculoskeletal injuries. Orthopedic service was consulted for definitive management of her right ankle injury. Upon completing the consult the patient is in the ICU on BiPAP with an acute exacerbation of chronic COPD. She has no other musculoskeletal complaints. Allergies and Home Medications Allergies Coded Allergies: enalapril (Verified Allergy, Severe, ANAPHYLAXIS, 08/22/13) Home Medications Acetaminophen/Diphenhydramine 1 Each Tablet, 2 EACH PO HS, (Reported) Albuterol Sulfate 2.5 Mg/3 Ml Vial.neb, 2.5 MG NEB Q4H PRN for SHORTNESS OF BREATH, (Reported) Albuterol Sulfate 1 Puff Puff, 2 PUFF IH QID PRN for SHORTNESS OF BREATH, ( Reported) 1 PUFF = 90 MCG Amlodipine Besylate 10 Mg Tablet, 10 MG PO DAILY, (Reported) Atorvastatin Calcium 10 Mg Tablet, 10 MG PO HS, (Reported) Budesonide/Formoterol Fumarate 10.2 Gm Hfa.aer.ad, 2 PUFF IH BID, (Reported) Furosemide 40 Mg Tablet, 40 MG PO DAILY, (Reported) Gabapentin 300 Mg Capsule, 300 MG PO BID, (Reported) Glimepiride 4 Mg Tablet, 4 MG PO BID, (Reported) Hydrocodone/Acetaminophen 1 Each Tablet, 1 TAB PO QID PRN for PAIN-MODERATE, ( Reported) Insulin Detemir 100 Unit/1 Ml Insuln.pen, 15 UNIT SQ 1100, (Reported) Metformin HCl 500 Mg Tablet, 1,000 MG PO BID, (Reported) TAKES 2 (500MG) TABLETS Multivit-Min/FA/Lycopene/Lut 1 Each Tablet, 1 TAB PO DAILY, (Reported) Naproxen 500 Mg Tablet, 500 MG PO BID, (Reported) Oxymetazoline HCl 30 Ml [place], 2 SPRAY NS Q4H PRN for CONGESTION, (Reported) Potassium Chloride 10 Meq Capsule.er, 10 MEQ PO HS, (Reported) Pramipexole Di-HCl 1 Mg Tablet, 1 MG PO HS, (Reported) Sertraline HCl 50 Mg Tablet, 50 MG PO HS, (Reported) Tiotropium [place] 4 Gm Mist.inhal, 2 PUFF IH DAILY, (Reported) Patient Home Medication List Home Medication List Reviewed: Yes Past Prmvayv-Xuqggv-Injkvm Hx Patient Social History Alcohol Use: Denies Use Recreational Drug Use: No Smoking Status: Current Everyday Smoker Type Used: Electronic/Vapor Former Smoker, Quit: Aug 25, 2012 2nd Hand Smoke Exposure: Yes Recent Foreign Travel: No Contact w/Someone Who Travel: No Recent Infectious Disease Expo: No Recent Hopitalizations: No Physical Abuse: No Sexual Abuse: No Mistreated: No Fear: No Immunizations Up To Date Tetanus Booster (TDap): Less than 5yrs PED Vaccines UTD: No Date of Pneumonia Vaccine: May 21, 2013 Date of Influenza Vaccine: May 25, 2017 Seasonal Allergies Seasonal Allergies: No Surgeries History of Surgeries: Yes (TOTAL right hip, carpul tunnel bilat, LEFT KNEE SX, RIGHT ANKLE) Surgeries: Gallbladder, Joint Replacement, Orthopedic Respiratory History of Respiratory Disorde: Yes Respiratory Disorders: Asthma, Pneumonia, Chronic Bronchitis, COPD, Emphysema Currently Using CPAP: No Currently Using BIPAP: No Cardiovascular History of Cardiac Disorders: Yes Cardiac Disorders: Chronic Edema/Swelling, Hypertension Neurological History of Neurological Disord: Yes Neurological Disorders: Neuropathy 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 System Hx 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 Disorders: No Sexually Transmitted Disease: No HIV/AIDS: No Female 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 Disorders: Denies 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 Genitourinary History of Genitourinary Disor: No Gastrointestinal History of Gastrointestinal Di: Yes Gastrointestinal Disorders: Gastroesophageal Reflux, Chronic Constipation, Diverticulosis, Hemorrhoids, Polyps, Hiatal Hernia, Gall Bladder Disease Musculoskeletal History of Musculoskeletal Dis: Yes Musculoskeletal Disorders: Degenerate Disk Disease, Arthritis, Chronic Back Pain Endocrine History of Endocrine Disorders: Yes Endocrine Disorders: Diabetes, Insulin dep HEENT History of HEENT Disorders: No HEENT Disorders: Cataract Loss of Vision: Denies Hearing Impairment: Denies Cancer History of Cancer: No Psychosocial History of Psychiatric Problem: Yes Behavioral Health Disorders: Sleep Difficulties, Anxiety, Depression Suicide Risk Score: 0 Integumentary History of Skin or Integumenta: No Blood Transfusions History of Blood Disorders: No Adverse Reaction to a Blood Tr: No Family Medical History Significant Family History: Heart Disease, COPD, Hypertension, Lung Disease Family Medial History: Completed stroke 09 BROTHER Family history: Asthma 03 MOTHER History of - respiratory disease 03 FATHER (PNEUMONIA) 03 MOTHER (ASTHMA, COPD) Review of Systems-General Constitutional: dizziness, malaise EENTM: no symptoms reported Respiratory: short of breath Cardiovascular: no symptoms reported Gastrointestinal: no symptoms reported Musculoskeletal: other (Right ankle pain) Skin: no symptoms reported Physical Exam-General Problems Physical Exam Vital Signs Vital Signs - First Documented 10/30/17 10/30/17 13:20 15:50 Temp 98.1 Pulse 108 Resp 26 B/P (MAP) 138/83 (101) Pulse Ox 85 O2 Delivery Nasal Cannula O2 Flow Rate 6.00 FiO2 50 Capillary Refill : Less Than 3 SecondsLess Than 3 Seconds General Appearance: mild distress Eyes: Bilateral Eye Normal Inspection, Bilateral Eye PERRL, Bilateral Eye EOMI HEENT: PERRL/EOMI, normal ENT inspection Neck: supple Respiratory: respiratory distress Cardiovascular: normal peripheral pulses, regular rate, rhythm Peripheral Pulses: 2+ Dorsalis Pedis (R), 2+ Left Dors-Pedis (L) Gastrointestinal: non tender, soft Extremities: other (RLE: splint c/d/i, motor/sensation grossly intact, no increased pain with AROM of the digits, foot well perfused.) 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 Continue to ice/elevate RLE Strict NWB RLE. Will plan for OR when cleared by the medicine team. Admission Status: Inpatient Order (span 2 midnights) Clinical Quality Measures DVT/VTE Risk/Contraindication: Risk Factor Score Per Nursin RFS Level Per Nursing on Admit: 4+=Very High Contraindications-Pharm: Other *list below* Contraindications-Mechi: Other *list below* ZEESHAN RAMACHANDRAN DO Oct 31, 2017 18:30
--- NOTE | 2017-10-31 18:46 | Progress Note-Standard ---
Standard Progress Note Progress Notes/Assess & Plan Date Seen by Provider: Oct 31, 2017 Time Seen by Provider: 18:00 Progress/Assessment & Plan Pt ERIC, still on BiPAP in the ICU, some confusion currently RLE: splint intact, moving all digits well, foot well perfused. Trimalleolar fracture Right ankle Unstable injury that will need operative stabilization. Will plan for OR when medically optimized and stable and cleared by the medicine /ICU team. ZEESHAN RAMACHANDRAN DO Oct 31, 2017 18:46
[2017-10-31] MEDS: ATORVASTATIN 10 MG (LIPITOR) TABLET PO SCH (20:59)
[2017-10-31] MEDS: KCL 10 MEQ TAB (MICRO K) PO SCH (20:59)
[2017-10-31] MEDS: SERTRALINE 50 MG (ZOLOFT) TABLET PO SCH (21:00)
[2017-11-01] VITALS (29 sets, daily range): BP systolic 136–189; BP diastolic 66–117
[2017-11-01] MEDS ORDERED: hydrALAZINE (APESOLINE) 20 MG/ML VIAL ONE ×2 (01:14→04:52)
[2017-11-01] MEDS ORDERED: hydrALAZINE (APESOLINE) 20 MG/ML VIAL IV ONE ×2 (02:00→06:30)
--- NOTE | 2017-11-01 02:15 | Pulmonary Progress Note ---
Subjective Time Seen by Provider: 02:19 Subjective/Events-last exam Pt currently on BiPAP only requiring 25% oxygen. Exam Exam Vital Signs Date Time Temp Pulse Resp B/P (MAP) Pulse Ox O2 Delivery O2 Flow Rate FiO2 11/01/17 01:00 51 11/01/17 00:00 NIV Bilevel 11/01/17 00:00 97.8 10/31/17 23:00 50 14 175/96 (122) 94 NIV Bilevel 25.00 10/31/17 22:00 52 25 152/95 (114) 96 NIV Bilevel 25.00 10/31/17 21:53 55 37 93 25.00 10/31/17 21:52 91 NIV Bilevel 25 10/31/17 21:00 52 18 185/107 (133) 94 NIV Bilevel 25.00 10/31/17 20:00 NIV Bilevel 10/31/17 20:00 59 18 176/117 (136) 94 NIV Bilevel 25.00 10/31/17 20:00 98.9 NIV Bilevel 25.00 10/31/17 19:00 59 14 170/104 (126) 92 NIV Bilevel 25.00 10/31/17 19:00 59 10/31/17 18:45 NIV Bilevel 25.00 10/31/17 18:25 53 31 96 25.00 10/31/17 18:21 53 34 97 30.00 10/31/17 18:00 56 29 159/100 (119) 96 NIV Bilevel 40.00 10/31/17 17:12 55 24 98 30.00 10/31/17 17:00 53 11 163/92 (115) 96 NIV Bilevel 40.00 10/31/17 16:05 72 28 98 40.00 10/31/17 16:00 NIV Bilevel 10/31/17 16:00 59 16 169/96 (120) 99 NIV Bilevel 40.00 10/31/17 15:00 65 14 173/93 (119) 97 NIV Bilevel 40.00 10/31/17 14:00 68 8 158/98 (118) 99 NIV Bilevel 40.00 10/31/17 13:32 63 23 95 40.00 10/31/17 13:00 60 13 173/91 (118) 97 NIV Bilevel 40.00 10/31/17 13:00 67 10/31/17 12:07 69 23 98 40.00 10/31/17 12:00 NIV Bilevel 10/31/17 12:00 70 16 156/79 (104) 97 NIV Bilevel 40.00 10/31/17 11:00 78 24 151/80 (103) 97 NIV Bilevel 40.00 10/31/17 10:04 64 31 98 40.00 10/31/17 10:00 66 29 150/81 (104) 97 NIV Bilevel 40.00 10/31/17 09:00 65 22 146/92 (110) 99 NIV Bilevel 40.00 10/31/17 08:37 65 22 98 40.00 10/31/17 08:35 98.7 10/31/17 08:00 63 24 138/78 (98) 98 NIV Bilevel 40.00 10/31/17 08:00 NIV Bilevel 10/31/17 07:00 61 18 133/75 (94) 97 NIV Bilevel 40.00 10/31/17 07:00 62 10/31/17 06:55 62 29 98 40.00 10/31/17 06:00 61 13 131/77 (95) 97 NIV Bilevel 45.00 10/31/17 05:00 64 20 128/78 (95) 98 NIV Bilevel 45.00 10/31/17 04:00 98.6 10/31/17 04:00 98 NIV Bilevel 50 10/31/17 04:00 70 17 130/75 (93) 100 NIV Bilevel 45.00 10/31/17 03:27 61 12 97 NIV Bilevel 45.00 10/31/17 03:23 61 17 98 50.00 10/31/17 03:00 62 20 152/93 (112) 97 NIV Bilevel 50.00 I & O 11/01/17 07:00 Intake Total 1410 ml Output Total 810 ml Balance 600 ml General Appearance: No Apparent Distress, WD/WN HEENT: Normal ENT Inspection Neck: Normal Inspection Respiratory: No Accessory Muscle Use, No Respiratory Distress Cardiovascular: Regular Rate, Rhythm Capillary Refill: Less Than 3 Seconds Peripheral Pulses: 2+ Dorsalis Pedis (R), 2+ Left Dors-Pedis (L) Gastrointestinal: non tender, soft Results Lab Laboratory Tests 10/30/17 13:37 10/31/17 03:15 Assessment/Plan Assessment/Plan Acute ankle fracture -Hold off on surgery until Friday if possible -Pain Control Acute on chronic respiratory failure -Pt is currently on BiPAP however only requiring 25% oxygen -Will have respiratory trial pt on NC this AM if ABG looks stable COPDAE-- pt is on 3 liters of oxygen at home -Solumedrol 40 IV Q 6 -SVNs Q 4 MICHAEL with obesity -Use BIPAP at night. Acute UTI -Cont zosyn -D/C vanco Acute psychosis -Pt received ativan, haldol and precedex, fentanyl Labs and CXR pending. 233 MK RAMOS DO Nov 01, 2017 02:15
[2017-11-01] MEDS: RT-ALBUTEROL/IPRATROPIUM 3 ML (DUONEB) VIAL INH SCH ×6 (02:17→22:20)
[2017-11-01 02:20] LABS: ABG BASE EXCESS 3.2 MMOL/L (-2.5-2.5); ABG OXYGEN SATURATION 96 % (94-100); ABG PCO2 38 MMHG (35-45); ABG PH 7.46 (7.37-7.43); ABG PO2 69 MMHG (79-93)
[2017-11-01 02:21] LABS: ALLENS TEST YES-POS; INSPIRED O2 25% BIPAP; PATIENT TEMP 98.4; VENTILATOR NO
[2017-11-01 02:39] LABS: BASOPHILS % (AUTO) 0 % (0-10); EOSINOPHILS % (AUTO) 0 % (0-10); HEMATOCRIT 27 % (35-52); HEMOGLOBIN 8.1 G/DL (11.5-16.0); LYMPHOCYTES # (AUTO) 0.5 X 10^3 (1.0-4.0); LYMPHOCYTES % (AUTO) 8 % (12-44); MEAN CORPUSCULAR HEMOGLOBIN 25 PG (25-34); MEAN CORPUSCULAR HGB CONC 30 G/DL (32-36); MEAN CORPUSCULAR VOLUME 84 FL (80-99); MEAN PLATELET VOLUME 10.8 FL (7.4-10.4); MONOCYTES # (AUTO) 0.3 X 10^3 (0.0-1.0); MONOCYTES % (AUTO) 4 % (0-12); NEUTROPHILS # (AUTO) 6.1 X 10^3 (1.8-7.8); NEUTROPHILS % (AUTO) 89 % (42-75); PLATELET COUNT 296 10^3/uL (130-400); RED BLOOD COUNT 3.19 10^6/uL (4.35-5.85); RED CELL DISTRIBUTION WIDTH 15.9 % (10.0-14.5); WHITE BLOOD COUNT 6.9 10^3/uL (4.3-11.0)
[2017-11-01 02:54] LABS: BUN/CREATININE RATIO 46; CARBON DIOXIDE 26 MMOL/L (21-32); CHLORIDE 105 MMOL/L (98-107); GFR ESTIMATED > 60; GLUCOSE 166 MG/DL (70-105); MAGNESIUM 1.9 MG/DL (1.8-2.4); PHOSPHORUS 2.3 MG/DL (2.3-4.7); POTASSIUM 4.7 MMOL/L (3.6-5.0); SODIUM 140 MMOL/L (135-145)
[2017-11-01] MEDS: PIPERACILLIN SODIUM/TAZOBACTAM 4.5 GM in NS (IVPB) 100 ML IV SCH ×3 (04:38→19:34)
[2017-11-01] MEDS ORDERED: TROUGH ORDER-PHARMACY XX NR (05:00)
[2017-11-01] MEDS: methylPREDNISolone 40 MG/ML (Solu-MEDROL) VIAL IV SCH ×3 (06:15→18:18)
[2017-11-01] MEDS: inSUlin (REGULAR) HUMAN 1 UNIT/0.01 ML (CHARGE PER UNIT) SC SCH (06:16)
[2017-11-01] MEDS ORDERED: PROPOFOL DRIP (ICU) 100 ML IV ONE (06:50)
[2017-11-01] MEDS ORDERED: ETOMIDATE IV SOLN 20 MG/10 ML VIAL IV ONE (07:00)
[2017-11-01] MEDS ORDERED: MIDAZOLAM 5 MG/5 ML (VERSED) VIAL INJ ONE (07:00)
[2017-11-01] MEDS ORDERED: SUCCINYLCHOLINE INJ 100 MG/5 ML SYR INJ ONE (07:00)
[2017-11-01] MEDS: MULTIVIT W/MINERALS TAB (THERAGRAN M) PO SCH (07:09)
[2017-11-01] MEDS ORDERED: RT-ALBUTEROL SULF 2.5 MG/3 ML PRE-MIX VIAL INH ONE (07:30)
--- NOTE | 2017-11-01 07:44 | Diagnostic Imaging Report ---
EXAM: CHEST 1 VIEW, AP/PA ONLY INDICATION: Intubated. COMPARISON: Chest radiograph 11/01/2017. FINDINGS: ETT tip at the level of clavicles. NG tube tip below the [id number]. Cardiomegaly. Prominent central pulmonary vascularity. Calcified aorta. Mild atelectasis or infiltrate in the right lung base has progressed since the prior exam. No acute osseous findings. IMPRESSION: Increasing atelectasis or infiltrate in right lung base. Remainder stable. Dictated by: Dictated on workstation # [id number]
[2017-11-01 08:17] LABS: ABG BASE EXCESS 2.5 MMOL/L (-2.5-2.5); ABG OXYGEN SATURATION 100 % (94-100); ABG PCO2 48 MMHG (35-45); ABG PH 7.37 (7.37-7.43); ABG PO2 259 MMHG (79-93); ABG TCO2 28.8 MMOL/L (21.0-31.0)
[2017-11-01 08:19] LABS: ALLENS TEST POSITIVE; INSPIRED O2 100%; PATIENT TEMP 97.8; VENTILATOR YES
--- NOTE | 2017-11-01 08:21 | Diagnostic Imaging Report ---
INDICATION: Dyspnea COMPARISON: 10/31/2017 FINDINGS: Upright portable view of the chest is obtained. Heart size is normal. The pulmonary vessels appear unremarkable. There is no pneumothorax, mediastinal widening or pleural fluid. The lungs are clear. IMPRESSION: No acute abnormality is demonstrated Dictated by: Dictated on workstation # [id number]
--- NOTE | 2017-11-01 08:25 | Occ Therapy Progress Note ---
Therapy Progress Note OT order received. Chart reviewed. Will continue to monitor pt. Pt. to be cleared by medical team for surgery. Pt. still on bipap and will possibly have surgery on Friday? Will monitor pt. and begin OT when pt. medically able to participate in skilled treatment for ADL training, likely after surgery. Thank you for the referral. [id number] AURORA SILVEIRA OT Nov 01, 2017 08:25
--- NOTE | 2017-11-01 08:50 | Procedure/Intervention Note ---
Procedure Note Preoperative Date of Service: Nov 01, 2017 Time of Procedure: 06:30 Vital Signs Date Time Temp Pulse Resp B/P (MAP) Pulse Ox O2 Delivery O2 Flow Rate FiO2 11/01/17 07:20 80 11/01/17 07:04 28 98 100 11/01/17 06:09 Vapotherm 25.00 11/01/17 06:00 165/92 (116) 11/01/17 04:00 98.8 Indication Acute REsp distress Risk/Time Out Risk and benefits explained to patient or legal guardian, verbal and written consent given. Time out performed, verified correct patient, correct procedure, correct site, and consent documented. Prep/Sedation Sedation: 150 mg succinylcholine and 30 mg etomidate Procedure-General Potassium is 4.7. RSI using succinylcholine and etomidate. When I arrived in the ICU after being summonsed for possible intubation the patient was having increased work of breathing, purse lip breathing and splinting. Her sats were dipping down to the low to mid 80s if she talked. We have obtained respiratory therapy support the patient in good position. Kenyatta ranjit score of 0. Patient was preoxygenated using a Ambu bag and brought her sats up to 100%. She was already on Vapotherm. Backup airway devices and video laryngoscopy were set up and available at the bedside. Colorimetric capnography paper and digital capnography were available. When the meds were pushed and the patient was ready we used a 3 Jarvis blade laryngoscope and passed a 7.5 ET tube easily visualizing it across the vocal cords. 23 at the lips. The cuff was inflated and bilateral symmetric breath sounds were heard over all lung herrera and no air sounds were heard over the epigastrium. Patient's end tidal CO2 after the colorimetric paper change was positive was 32. Her sats stayed above 98% the entire procedure. Attempts 1. Propofol was started with a Rass goal of 3. Chest x-ray was obtained showing tubes sitting 2.5 cm above the dillan. The OG tube seemed to be in good position. Patient tolerated procedure well. After the initial RSI meds wore off the patient was having some bucking of the event and her sats were dropping. She was suctioned but there is no secretions to be removed so an additional 4 mg of Versed were given and the propofol was increased. An ABG was ordered for 30 minutes after intubation and the patient was placed on a ventilator. Initial settings of 15 respiratory rate, I time 1 second, tidal volume 450 mL PEEP 5. Her peak pressures were 20-25. Patient was again satting 100% on FiO2 of 1.00. Patient's blood pressure was in the 170s over 90s and heart rate was about 70 bpm when I left the room. Complications None Good oxygenation and blood pressure. Patient is improved on mechanical ventilation. ABG is pending and will be called to Dr. Soriano, pulmonology. IMAN PARSONS Nov 01, 2017 08:50
[2017-11-01] MEDS ORDERED: NS IV 1000 ML 1,000 ML ONE (09:09)
[2017-11-01] MEDS: PANTOPRAZOLE 40 MG/10 ML (PROTONIX) VIAL IV SCH ×2 (09:15→20:33)
[2017-11-01] MEDS: LORazepam INJ 2 MG/ML (ATIVAN) VIAL IV PRN ×2 (09:15→11:50)
[2017-11-01] MEDS: GABAPENTIN 300 MG (NEURONTIN) CAP PO SCH ×2 (09:25→21:28)
[2017-11-01] MEDS: PRAMIPEXOLE 0.5 MG TAB (MIRAPEX) PO SCH (09:25)
[2017-11-01] MEDS: amLODIPine 10 MG (NORVASC) TAB PO SCH (09:25)
[2017-11-01] MEDS: risperiDONE 0.25 MG (RisperDAL) TAB PO SCH ×2 (09:25→21:28)
[2017-11-01] MEDS: PROPOFOL DRIP (ICU) 100 ML IV SCH ×5 (09:43→22:15)
[2017-11-01] MEDS: RT-ADVAIR HFA 115/21 MCG PER PUFF IH SCH ×2 (10:34→19:11)
[2017-11-01] MEDS: UMECLIDINIUM BROMIDE (INCRUSE ELLIPTA) 7'S IH SCH (10:34)
--- NOTE | 2017-11-01 10:47 | Progress Note-Hospitalist ---
Subjective HPI/CC On Admission Date Seen by Provider: Nov 01, 2017 Time Seen by Provider: 10:15 Subjective/Events-last exam Patient has been intubated this morning secondary to acute respiratory failure from a right lower lobe infiltrate that is been increasing. She had failed BiPAP. She has a history of COPD and is O2 dependent at home on 3 L nasal cannula. She is currently intubated and oxygen is just been turned down to 40 percent with sats around 92 percent. She is on to prevent and unable to provide additional history but she is beginning to fight the ventilator. Objective Exam Vital Signs Vital Signs Date Time Temp Pulse Resp B/P (MAP) Pulse Ox O2 Delivery O2 Flow Rate FiO2 10/30/17 13:20 98.1 108 26 138/83 (101) 85 Nasal Cannula 6.00 10/30/17 15:50 50 Capillary Refill : Less Than 3 SecondsLess Than 3 Seconds General Appearance: Moderate Distress Neck: Limited Range of Motion Respiratory: Decreased Breath Sounds Cardiovascular: Tachycardia Gastrointestinal: Normal Bowel Sounds, No Pulsatile Mass, Non Tender, Soft Extremity: Other (Right ankle in a cast ) Neurologic/Psychiatric: Other Skin: Pallor Results/Procedures Lab Laboratory Tests 11/01/17 02:32 Assessment/Plan Assessment and Plan Assess & Plan/Chief Complaint 1. Acute respiratory failure secondary to right lower lobe pneumonia-on Zosyn. 2. Chronic respiratory failure secondary to COPD O2 at home 3. Ankle fracture surgery on hold currently 4. Anemia we'll Hemoccult stools and make sure the patient is on DVT prophylaxis 5. Type II diabetes on sliding scale insulin and Accu-Cheks 6. Hypertension on hydralazine when necessary 7. Morbid obesity with a BMI of 36 Critical Care: Critically Ill Patient Time spent with patient (mins): 20 MIKE KERR MD Nov 01, 2017 10:47
[2017-11-01] MEDS: NS IV 1000 ML 1,000 ML IV SCH ×2 (11:40→22:16)
[2017-11-01] MEDS: inSUlin ASPART (NovoLOG) 1 UNIT/0.01 ML (CHARGE PER UNIT) SC SCH ×3 (12:08→22:34)
[2017-11-01] MEDS: ENOXAPARIN 40 MG/0.4 ML (LOVENOX) SYR SC SCH (12:09)
[2017-11-01] MEDS: inSUlin DETERMIR 1 UNIT/0.01 ML (LEVEMIR) CHARGE PER UNIT SQ SCH (12:14)
[2017-11-01] MEDS: NS IV SCH ×2 (16:02)
[2017-11-01] MEDS: DEXMEDETOMIDINE IV SCH ×2 (16:02)
[2017-11-01] MEDS: LORazepam INJ 2 MG/ML (ATIVAN) VIAL IVP PRN ×2 (16:37→20:18)
[2017-11-01] MEDS: meTOprolol 5 MG/5 ML (LOPRESSOR) VIAL IV PRN (20:18)
[2017-11-01] MEDS: ATORVASTATIN 10 MG (LIPITOR) TABLET PO SCH (21:28)
[2017-11-01] MEDS: SERTRALINE 50 MG (ZOLOFT) TABLET PO SCH (21:28)
[2017-11-01] MEDS: KCL 10 MEQ TAB (MICRO K) PO SCH (21:29)
[2017-11-02] VITALS (28 sets, daily range): BP systolic 151–189; BP diastolic 70–92
[2017-11-02] MEDS: methylPREDNISolone 40 MG/ML (Solu-MEDROL) VIAL IV SCH ×4 (00:27→17:51)
[2017-11-02] MEDS: RT-ALBUTEROL/IPRATROPIUM 3 ML (DUONEB) VIAL INH SCH ×6 (01:13→22:45)
[2017-11-02] MEDS: PROPOFOL DRIP (ICU) 100 ML IV SCH ×8 (01:14→23:00)
[2017-11-02] MEDS: LORazepam INJ 2 MG/ML (ATIVAN) VIAL IVP PRN ×2 (03:27→11:03)
[2017-11-02] MEDS: PIPERACILLIN SODIUM/TAZOBACTAM 4.5 GM in NS (IVPB) 100 ML IV SCH ×3 (03:27→18:24)
[2017-11-02 04:09] LABS: ABG BASE EXCESS 1.7 MMOL/L (-2.5-2.5); ABG OXYGEN SATURATION 96 % (94-100); ABG PCO2 44 MMHG (35-45); ABG PH 7.39 (7.37-7.43); ABG PO2 80 MMHG (79-93); ABG TCO2 27.5 MMOL/L (21.0-31.0)
[2017-11-02 04:11] LABS: ALLENS TEST YES-POS; INSPIRED O2 30%; PATIENT TEMP 98.8; VENTILATOR YES
[2017-11-02] MEDS: DEXMEDETOMIDINE IV SCH ×4 (04:29→15:12)
[2017-11-02] MEDS: NS IV SCH ×4 (04:29→15:12)
[2017-11-02 04:39] LABS: BASOPHILS % (AUTO) 0 % (0-10); EOSINOPHILS % (AUTO) 0 % (0-10); HEMATOCRIT 25 % (35-52); HEMOGLOBIN 7.5 G/DL (11.5-16.0); LYMPHOCYTES # (AUTO) 0.6 X 10^3 (1.0-4.0); LYMPHOCYTES % (AUTO) 8 % (12-44); MEAN CORPUSCULAR HEMOGLOBIN 25 PG (25-34); MEAN CORPUSCULAR HGB CONC 30 G/DL (32-36); MEAN CORPUSCULAR VOLUME 83 FL (80-99); MEAN PLATELET VOLUME 11.5 FL (7.4-10.4); MONOCYTES # (AUTO) 0.5 X 10^3 (0.0-1.0); MONOCYTES % (AUTO) 7 % (0-12); NEUTROPHILS # (AUTO) 5.8 X 10^3 (1.8-7.8); NEUTROPHILS % (AUTO) 85 % (42-75); PLATELET COUNT 312 10^3/uL (130-400); RED BLOOD COUNT 3.02 10^6/uL (4.35-5.85); RED CELL DISTRIBUTION WIDTH 16.8 % (10.0-14.5); WHITE BLOOD COUNT 6.8 10^3/uL (4.3-11.0)
[2017-11-02 05:02] LABS: BUN/CREATININE RATIO 26; CALCIUM 8.9 MG/DL (8.5-10.1); CARBON DIOXIDE 24 MMOL/L (21-32); CHLORIDE 109 MMOL/L (98-107); GFR ESTIMATED > 60; GLUCOSE 177 MG/DL (70-105); MAGNESIUM 1.8 MG/DL (1.8-2.4); PHOSPHORUS 2.7 MG/DL (2.3-4.7); POTASSIUM 3.7 MMOL/L (3.6-5.0); SODIUM 142 MMOL/L (135-145)
[2017-11-02] MEDS: POTASSIUM CL 10MEQ/50ML IVPB 50 ML IV SCH (05:53)
[2017-11-02] MEDS: KCL 20 MEQ TAB (K-DUR) PO SCH (05:54)
[2017-11-02] MEDS: MAGNESIUM 1 GM/100 ML IVPB 100 ML IV SCH (05:54)
[2017-11-02] MEDS: inSUlin ASPART (NovoLOG) 1 UNIT/0.01 ML (CHARGE PER UNIT) SC SCH ×4 (05:58→17:52)
[2017-11-02] MEDS: MULTIVIT W/MINERALS TAB (THERAGRAN M) PO SCH (06:15)
--- NOTE | 2017-11-02 06:16 | Pulmonary Progress Note ---
Exam Exam Vital Signs Date Time Temp Pulse Resp B/P (MAP) Pulse Ox O2 Delivery O2 Flow Rate FiO2 11/02/17 06:00 105 26 151/70 (97) 94 Mechanical Ventilator 30.00 11/02/17 05:27 104 11/02/17 05:00 105 23 165/78 (107) 94 Mechanical Ventilator 30.00 11/02/17 04:32 107 24 94 30 11/02/17 04:00 Mechanical Ventilator 30 11/02/17 04:00 108 24 162/72 (102) 94 Mechanical Ventilator 30.00 11/02/17 04:00 98.8 11/02/17 03:00 112 16 163/74 (103) 95 Mechanical Ventilator 30.00 11/02/17 01:14 105 11/02/17 01:13 105 26 94 30 11/02/17 01:00 104 11/02/17 01:00 104 18 165/80 (108) 94 Mechanical Ventilator 30.00 11/02/17 00:00 Mechanical Ventilator 30 11/02/17 00:00 99.4 11/02/17 00:00 114 27 154/74 (100) 94 Mechanical Ventilator 30.00 11/01/17 23:00 115 33 158/79 (105) 93 Mechanical Ventilator 30.00 11/01/17 22:20 107 25 92 30 11/01/17 22:15 110 11/01/17 22:00 112 24 164/79 (107) 93 Mechanical Ventilator 30.00 11/01/17 21:00 101 14 162/74 (103) 94 Mechanical Ventilator 30.00 11/01/17 20:00 Mechanical Ventilator 30 11/01/17 20:00 98.7 Mechanical Ventilator 30.00 11/01/17 20:00 112 26 162/94 (116) 94 Mechanical Ventilator 30.00 11/01/17 19:28 154/72 11/01/17 19:11 96 24 94 30 11/01/17 19:00 96 24 154/72 (99) 94 Mechanical Ventilator 30.00 11/01/17 19:00 96 11/01/17 18:00 96 22 163/80 (107) 93 Mechanical Ventilator 30.00 11/01/17 17:00 96 18 142/70 (94) 94 Mechanical Ventilator 30.00 11/01/17 16:40 Mechanical Ventilator 30.00 11/01/17 16:38 103 30 99 30 11/01/17 16:01 145/75 11/01/17 16:00 98 16 139/75 (96) 94 Mechanical Ventilator 40.00 11/01/17 16:00 Mechanical Ventilator 40 11/01/17 16:00 98.8 11/01/17 15:00 87 24 145/75 (98) 97 Mechanical Ventilator 40.00 11/01/17 15:00 Mechanical Ventilator 40.00 11/01/17 14:13 40.00 11/01/17 14:13 86 24 97 40 11/01/17 14:00 84 29 162/70 (100) 98 Mechanical Ventilator 50.00 11/01/17 13:00 101 15 137/86 (103) 100 Mechanical Ventilator 50.00 11/01/17 13:00 103 11/01/17 13:00 149/72 11/01/17 12:15 98.6 89 24 163/78 (106) 100 Mechanical Ventilator 50.00 11/01/17 12:00 Mechanical Ventilator 50 11/01/17 11:00 78 20 157/81 (106) 99 Mechanical Ventilator 50.00 11/01/17 10:29 68 28 100 50 11/01/17 10:00 70 17 146/74 (98) 100 Mechanical Ventilator 50.00 11/01/17 09:43 147/7 11/01/17 09:36 65 11/01/17 09:30 Mechanical Ventilator 65.00 11/01/17 09:22 50 11/01/17 09:22 Mechanical Ventilator 50.00 11/01/17 09:00 65 27 151/74 (99) 95 Mechanical Ventilator 40.00 11/01/17 09:00 40 11/01/17 08:00 97.2 Mechanical Ventilator 11/01/17 08:00 68 32 171/84 (113) 100 Mechanical Ventilator 100.00 11/01/17 08:00 Mechanical Ventilator 100 11/01/17 07:20 80 11/01/17 07:04 65 28 98 100 11/01/17 07:00 88 31 184/117 (139) 100 Mechanical Ventilator 100.00 11/01/17 07:00 87 I & O 11/02/17 06:59 Intake Total 1480 ml Output Total 2650 ml Balance -1170 ml General Appearance: Moderate Distress HEENT: Normal ENT Inspection Neck: Limited Range of Motion Respiratory: Decreased Breath Sounds Cardiovascular: Tachycardia Capillary Refill: Less Than 3 Seconds Peripheral Pulses: 2+ Dorsalis Pedis (R), 2+ Left Dors-Pedis (L) Gastrointestinal: non tender, soft Extremity: Other (Right ankle in a cast ) Neurologic/Psychiatric: Other Skin: Pallor Results Lab Laboratory Tests 11/01/17 02:32 11/02/17 03:58 Assessment/Plan Assessment/Plan Acute ankle fracture -Hold off on surgery until Friday if possible -Pain Control Acute on chronic respiratory failure -Pt intubated yesterday morning secondary to progressive respiratory failure COPDAE-- pt is on 3 liters of oxygen at home -Solumedrol 40 IV Q 6 -SVNs Q 4 Anemia -Monitor -Hold off on transfusion MICHAEL with obesity Acute UTI -Cont zosyn 233 Critical Care: Critically Ill Patient MK RAMOS DO Nov 02, 2017 06:16
--- NOTE | 2017-11-02 09:51 | Diagnostic Imaging Report ---
EXAM: CHEST 1 VIEW, AP/PA ONLY INDICATION: Dyspnea. COMPARISON: Chest radiograph 11/01/2017. FINDINGS: Stable cardiomegaly and prominent central pulmonary vascularity. Improving aeration of the right lung base. Calcified aorta. No pleural effusion or pneumothorax. ETT tip below the clavicles. Enteric tube tip below the [id number]-yo-mduz. IMPRESSION: 1. Improving aeration of the right lung base. 2. Stable cardiomegaly and prominent central pulmonary vascularity. 2. Support lines in the expected positions. Dictated by: Dictated on workstation # [id number]
[2017-11-02] MEDS: PRAMIPEXOLE 0.5 MG TAB (MIRAPEX) PO SCH (10:03)
[2017-11-02] MEDS: risperiDONE 0.25 MG (RisperDAL) TAB PO SCH ×2 (10:03→21:22)
[2017-11-02] MEDS: GABAPENTIN 300 MG (NEURONTIN) CAP PO SCH ×2 (10:03→21:22)
[2017-11-02] MEDS: amLODIPine 10 MG (NORVASC) TAB PO SCH (10:03)
[2017-11-02] MEDS: PANTOPRAZOLE 40 MG/10 ML (PROTONIX) VIAL IV SCH ×2 (10:04→21:22)
[2017-11-02] MEDS: UMECLIDINIUM BROMIDE (INCRUSE ELLIPTA) 7'S IH SCH (10:30)
[2017-11-02] MEDS: RT-ADVAIR HFA 115/21 MCG PER PUFF IH SCH ×2 (10:30→19:45)
--- NOTE | 2017-11-02 10:36 | Progress Note-Hospitalist ---
Subjective HPI/CC On Admission Date Seen by Provider: Nov 02, 2017 Time Seen by Provider: 08:45 Subjective/Events-last exam Patient is intubated but responds to commands. She sedated somewhat on propofol. Systolic blood pressures been in the 140s to 150s. She is on 30 percent FiO2 with oxygen saturations in the 95-96 percent range. Objective Exam Vital Signs Vital Signs Date Time Temp Pulse Resp B/P (MAP) Pulse Ox O2 Delivery O2 Flow Rate FiO2 10/30/17 13:20 98.1 108 26 138/83 (101) 85 Nasal Cannula 6.00 10/30/17 15:50 50 Capillary Refill : Less Than 3 SecondsLess Than 3 Seconds General Appearance: Other (Sedated on the ventilator) HEENT: Normal ENT Inspection Respiratory: Lungs Clear, Normal Breath Sounds, No Accessory Muscle Use, No Respiratory Distress Cardiovascular: Regular Rate, Rhythm, No Gallop, No Murmur Gastrointestinal: Normal Bowel Sounds, Non Tender, Soft Extremity: Pedal Edema Neurologic/Psychiatric: Other (Sedated) Skin: Pallor Results/Procedures Lab Laboratory Tests 11/02/17 03:58 Assessment/Plan Assessment and Plan Assess & Plan/Chief Complaint 1. Acute respiratory failure secondary to right lower lobe pneumonia-on Zosyn, Rocephin and vancomycin- currently intubated with excellent blood gases. The question will be whether she should go ahead and proceed to surgery tomorrow for repair of her fractured ankle while intubated and stable or attempt to extubate before surgery. We'll defer to Dr. Soriano and orthopedic surgery. 2. Chronic respiratory failure secondary to COPD, on O2 at home 3. Ankle fracture surgery on hold currently 4. Anemia ; we'll Hemoccult stools and make sure the patient is on DVT prophylaxis- patient's hemoglobin is 7.3 today. She did have some Blood in her NG aspirate and this will be checked periodically. She did have an upper endoscopy and colonoscopy in 2014 wit reflux esophagitis being identified and several colonic polyps that were benign 5. Type II diabetes on sliding scale insulin and Accu-Cheks 6. Hypertension on hydralazine when necessary 7. Morbid obesity with a BMI of 36 Critical Care: Critically Ill Patient Time spent with patient (mins): 30 MIKE KERR MD Nov 02, 2017 10:36
[2017-11-02] MEDS: fentaNYL INJECTION 100 MCG/2 ML AMP IV PRN ×4 (11:12→23:07)
[2017-11-02] MEDS: meTOprolol 5 MG/5 ML (LOPRESSOR) VIAL IV PRN ×3 (11:38→23:06)
[2017-11-02] MEDS: inSUlin DETERMIR 1 UNIT/0.01 ML (LEVEMIR) CHARGE PER UNIT SQ SCH (11:44)
--- NOTE | 2017-11-02 12:24 | Progress Note-Standard ---
Standard Progress Note Progress Notes/Assess & Plan Date Seen by Provider: Nov 02, 2017 Time Seen by Provider: 12:00 Progress/Assessment & Plan Pt ERIC, was intubated yesterday secondary to progressive respiratory failure Spoke with daughter at beside about the patient's injury and orthopedic management plan RLE: splint intact and stable, foot well perfused. Trimalleolar fracture/dislocation Right ankle Unstable injury that will need operative stabilization. Given the patient's medical comorbidities and current clinical condition will plan to stabilize the injury in a staged fashion with temporizing stabilization with external fixation as the first stage. Will plan for OR tomorrow provided that the medicine team clears the patient for surgery. ZEESHAN RAMACHANDRAN DO Nov 02, 2017 12:24
[2017-11-02] MEDS: ENOXAPARIN 40 MG/0.4 ML (LOVENOX) SYR SC SCH (12:30)
[2017-11-02] MEDS: NS IV 1000 ML 1,000 ML IV SCH (12:30)
[2017-11-02] MEDS: KCL 10 MEQ TAB (MICRO K) PO SCH (21:18)
[2017-11-02] MEDS: ATORVASTATIN 10 MG (LIPITOR) TABLET PO SCH (21:22)
[2017-11-02] MEDS: SERTRALINE 50 MG (ZOLOFT) TABLET PO SCH (21:22)
[2017-11-03] VITALS (36 sets, daily range): BP systolic 130–198; BP diastolic 66–101
[2017-11-03] MEDS: methylPREDNISolone 40 MG/ML (Solu-MEDROL) VIAL IV SCH ×5 (00:11→23:58)
[2017-11-03] MEDS: inSUlin ASPART (NovoLOG) 1 UNIT/0.01 ML (CHARGE PER UNIT) SC SCH ×4 (00:11→18:07)
[2017-11-03] MEDS: RT-ALBUTEROL/IPRATROPIUM 3 ML (DUONEB) VIAL INH SCH ×6 (01:38→22:10)
[2017-11-03] MEDS: DEXMEDETOMIDINE IV SCH ×6 (01:57→23:48)
[2017-11-03] MEDS: NS IV SCH ×6 (01:57→23:48)
[2017-11-03] MEDS: PROPOFOL DRIP (ICU) 100 ML IV SCH ×8 (01:58→23:47)
[2017-11-03] MEDS: NS IV 1000 ML 1,000 ML IV SCH ×2 (01:58→18:09)
[2017-11-03] MEDS: PIPERACILLIN SODIUM/TAZOBACTAM 4.5 GM in NS (IVPB) 100 ML IV SCH ×3 (02:55→20:07)
[2017-11-03] MEDS: fentaNYL INJECTION 100 MCG/2 ML AMP IV PRN ×6 (02:56→22:54)
[2017-11-03 03:35] LABS: ABG BASE EXCESS 0.9 MMOL/L (-2.5-2.5); ABG OXYGEN SATURATION 94 % (94-100); ABG PCO2 44 MMHG (35-45); ABG PH 7.38 (7.37-7.43); ABG PO2 68 MMHG (79-93); ABG TCO2 26.8 MMOL/L (21.0-31.0); ALLENS TEST YES-POS; INSPIRED O2 30%; PATIENT TEMP 98.7; VENTILATOR YES
[2017-11-03 04:12] LABS: BASOPHILS % (AUTO) 0 % (0-10); EOSINOPHILS % (AUTO) 0 % (0-10); HEMATOCRIT 26 % (35-52); HEMOGLOBIN 7.8 G/DL (11.5-16.0); LYMPHOCYTES # (AUTO) 0.3 X 10^3 (1.0-4.0); LYMPHOCYTES % (AUTO) 4 % (12-44); MEAN CORPUSCULAR HEMOGLOBIN 25 PG (25-34); MEAN CORPUSCULAR HGB CONC 30 G/DL (32-36); MEAN CORPUSCULAR VOLUME 84 FL (80-99); MEAN PLATELET VOLUME 11.1 FL (7.4-10.4); MONOCYTES # (AUTO) 0.3 X 10^3 (0.0-1.0); MONOCYTES % (AUTO) 4 % (0-12); NEUTROPHILS % (AUTO) 92 % (42-75); PLATELET COUNT 286 10^3/uL (130-400); RED BLOOD COUNT 3.11 10^6/uL (4.35-5.85); WHITE BLOOD COUNT 6.6 10^3/uL (4.3-11.0)
[2017-11-03 04:26] LABS: BUN/CREATININE RATIO 28; CALCIUM 8.9 MG/DL (8.5-10.1); CARBON DIOXIDE 23 MMOL/L (21-32); CHLORIDE 110 MMOL/L (98-107); CREATININE SERUM 0.68 MG/DL (0.60-1.30); GFR ESTIMATED > 60; GLUCOSE 234 MG/DL (70-105); MAGNESIUM 1.9 MG/DL (1.8-2.4); PHOSPHORUS 2.6 MG/DL (2.3-4.7); POTASSIUM 3.7 MMOL/L (3.6-5.0); SODIUM 143 MMOL/L (135-145)
[2017-11-03] MEDS: POTASSIUM CL 10MEQ/50ML IVPB 50 ML IV SCH (04:40)
[2017-11-03] MEDS: MULTIVIT W/MINERALS TAB (THERAGRAN M) PO SCH (04:40)
[2017-11-03] MEDS: MAGNESIUM 1 GM/100 ML IVPB 100 ML IV SCH (04:40)
[2017-11-03] MEDS: KCL 20 MEQ TAB (K-DUR) PO SCH (04:40)
[2017-11-03] MEDS: RT-ADVAIR HFA 115/21 MCG PER PUFF IH SCH ×2 (06:36→18:17)
--- NOTE | 2017-11-03 07:13 | Progress Note (SOAP) ---
Subjective Time Seen by Provider: 07:05 Subjective/Events-last exam patient on vent resting comfortably. Patient to have ankle surgery today. Hemoglobin 7.8. cOPD. Diabetes Objective Exam Vital Signs Date Time Temp Pulse Resp B/P (MAP) Pulse Ox O2 Delivery O2 Flow Rate FiO2 11/03/17 06:34 107 24 91 30 11/03/17 06:00 105 25 156/75 (102) 93 Mechanical Ventilator 30.00 11/03/17 05:00 105 24 167/75 (105) 93 Mechanical Ventilator 30.00 11/03/17 04:33 98.7 108 28 154/73 94 Mechanical Ventilator 30.00 11/03/17 04:00 106 35 167/79 (108) 94 Mechanical Ventilator 30.00 11/03/17 03:57 Mechanical Ventilator 30 11/03/17 03:56 108 28 94 30 11/03/17 03:31 98.7 11/03/17 03:00 109 25 154/73 (100) 93 Mechanical Ventilator 30.00 11/03/17 02:00 105 36 162/75 (104) 93 Mechanical Ventilator 30.00 11/03/17 01:58 100.2 101 24 156/73 94 Mechanical Ventilator 30.00 11/03/17 01:39 101 24 94 30 11/03/17 01:00 102 11/03/17 01:00 102 35 153/72 (99) 94 Mechanical Ventilator 30.00 11/03/17 00:00 98 29 148/67 (94) 94 Mechanical Ventilator 30.00 11/03/17 00:00 Mechanical Ventilator 30 11/02/17 23:00 112 28 168/75 (106) 95 Mechanical Ventilator 30.00 11/02/17 23:00 100.2 112 28 156/72 93 Mechanical Ventilator 30.00 11/02/17 22:46 112 28 93 30 11/02/17 22:00 112 25 156/73 (100) 94 Mechanical Ventilator 30.00 11/02/17 21:00 112 21 152/70 (97) 93 Mechanical Ventilator 30.00 11/02/17 20:24 100.2 105 24 164/81 93 Mechanical Ventilator 30.00 11/02/17 20:00 Mechanical Ventilator 30 11/02/17 20:00 108 27 176/86 (116) 94 Mechanical Ventilator 30.00 11/02/17 19:54 30 11/02/17 19:45 105 24 93 30 11/02/17 19:35 100.2 105 32 164/81 (108) 93 Mechanical Ventilator 30.00 11/02/17 19:00 107 11/02/17 19:00 107 33 160/75 (103) 92 Mechanical Ventilator 30.00 11/02/17 18:00 101 33 185/92 (123) 95 Mechanical Ventilator 30.00 11/02/17 17:42 174/83 11/02/17 17:00 95 20 173/83 (113) 93 Mechanical Ventilator 30.00 11/02/17 16:36 99.3 11/02/17 16:11 112 28 93 30 11/02/17 16:00 112 30 188/90 (122) 93 Mechanical Ventilator 30.00 11/02/17 16:00 Mechanical Ventilator 30 11/02/17 15:00 112 29 166/86 (112) 92 Mechanical Ventilator 30.00 11/02/17 14:46 112 30 91 30 11/02/17 14:42 178/86 11/02/17 14:00 108 28 170/85 (113) 92 Mechanical Ventilator 30.00 11/02/17 13:00 108 11/02/17 13:00 108 26 169/86 (113) 92 Mechanical Ventilator 30.00 11/02/17 12:51 112 28 94 30 11/02/17 12:00 Mechanical Ventilator 30 11/02/17 12:00 101 14 164/76 (105) 94 Mechanical Ventilator 30.00 11/02/17 11:45 98.7 11/02/17 11:32 124 15 168/79 93 Mechanical Ventilator 11/02/17 11:00 129 13 189/82 (117) 93 Mechanical Ventilator 30.00 11/02/17 10:30 111 29 94 30 11/02/17 10:00 101 32 163/73 (103) 93 Mechanical Ventilator 30.00 11/02/17 09:00 101 19 163/76 (105) 94 Mechanical Ventilator 30.00 11/02/17 08:49 100 25 93 30 11/02/17 08:29 152/70 11/02/17 08:00 102 23 152/70 (97) 94 Mechanical Ventilator 30.00 11/02/17 08:00 99.8 11/02/17 08:00 Mechanical Ventilator 30 I & O 11/03/17 07:00 Intake Total 1580 ml Output Total 2315 ml Balance -735 ml Capillary Refill : Less Than 3 SecondsLess Than 3 Seconds General Appearance: No Apparent Distress Results Lab Laboratory Tests 11/02/17 11:40: Glucometer 219H 11/02/17 17:43: Glucometer 214H 11/03/17 00:08: Glucometer 222H 11/03/17 03:25: Blood Gas Puncture Site LEFT RADIAL, Blood Gas Patient Temperature 98.7, Arterial Blood pH 7.38, Arterial Blood Partial Pressure CO2 44, Arterial Blood Partial Pressure O2 68L, Arterial Blood HCO3 25, Arterial Blood Total CO2 26.8, Arterial Blood Oxygen Saturation 94, Arterial Blood Base Excess 0.9, Barrington Test YES-POS, Blood Gas Ventilator Setting YES, Blood Gas Inspired Oxygen 30% 11/03/17 03:30: Stool Occult Blood Immunoassay NEGATIVE 11/03/17 03:55: White Blood Count 6.6, Red Blood Count 3.11L, Hemoglobin 7.8L, Hematocrit 26L, Mean Corpuscular Volume 84, Mean Corpuscular Hemoglobin 25, Mean Corpuscular Hemoglobin Concent 30L, Red Cell Distribution Width 17.0H, Platelet Count 286, Mean Platelet Volume 11.1H, Neutrophils (%) (Auto) 92H, Lymphocytes (%) (Auto) 4L, Monocytes (%) (Auto) 4, Eosinophils (%) (Auto) 0, Basophils (%) (Auto) 0, Neutrophils # (Auto) 6.0, Lymphocytes # (Auto) 0.3L, Monocytes # (Auto) 0.3, Eosinophils # (Auto) 0.0, Basophils # (Auto) 0.0, Sodium Level 143, Potassium Level 3.7, Chloride Level 110H, Carbon Dioxide Level 23, Anion Gap 10, Blood Urea Nitrogen 19H, Creatinine 0.68, Estimat Glomerular Filtration Rate > 60, BUN /Creatinine Ratio 28, Glucose Level 234H, Calcium Level 8.9, Phosphorus Level 2.6, Magnesium Level 1.9 Microbiology 10/30/17 Blood Culture - Preliminary, Resulted No growth 11/01/17 Gram Stain - Final, Resulted 11/01/17 Sputum Culture - Preliminary, Resulted Usual/normal fang isolated. 10/30/17 Urine Culture - Final, Complete Nonenterococcus (Chains Cocci) Assessment/Plan Assessment/Plan Assess & Plan/Chief Complaint Right acute ankle fracture Acute on chronic respiratory failure. COPD with acute exacerbation. MICHAEL with obesity. Acute UTI. Diabetes. Hypercapnia. Confusion. . 11/03/16 acute right ankle fracture. Acute and chronic respiratory failure COPD with acute exacerbation. diabetes. uTI. Patient on ventilator Patient respiratory distress Friday night Clinical Quality Measures Admission Status Admission Dx Fractured right ankle. COPD with acute exacerbation. Diabetes. History of CHF. Arthritis. DVT/VTE Risk/Contraindication: Risk Factor Score Per Nursin RFS Level Per Nursing on Admit: 4+=Very High Contraindications-Pharm: Other *list below* Contraindications-Mechi: Other *list below* RADHA HAYES DO Nov 03, 2017 07:13
[2017-11-03] MEDS: amLODIPine 10 MG (NORVASC) TAB PO SCH (07:59)
[2017-11-03] MEDS: PANTOPRAZOLE 40 MG/10 ML (PROTONIX) VIAL IV SCH ×2 (07:59→20:36)
[2017-11-03] MEDS: risperiDONE 0.25 MG (RisperDAL) TAB PO SCH ×2 (07:59→21:54)
[2017-11-03] MEDS: GABAPENTIN 300 MG (NEURONTIN) CAP PO SCH ×2 (08:00→21:54)
[2017-11-03] MEDS: PRAMIPEXOLE 0.5 MG TAB (MIRAPEX) PO SCH (08:00)
--- NOTE | 2017-11-03 08:02 | Diagnostic Imaging Report ---
Indication: Respiratory distress. Comparison: Compared to 11/02/2017. Findings: ET tube mid trachea. OG catheter in the stomach. There is some very mild patchy parenchymal opacity in the lung bases, greater right than left, likely partial atelectasis. A small amount of pleural fluid could not be excluded. Impression: Support apparatus in good alignment. There is a very likely slight basilar atelectasis with no pneumothorax. Dictated by: Dictated on workstation # [id number]
--- NOTE | 2017-11-03 08:40 | Occ Therapy Progress Note ---
Therapy Progress Note Following pt. Pt. on ventilator. Planned for possible surgery today. Will continue to monitor and treat pt. when medically appropriate for occupational therapy. [id number] AURORA SILVEIRA OT Nov 03, 2017 08:39
[2017-11-03] MEDS: inSUlin DETERMIR 1 UNIT/0.01 ML (LEVEMIR) CHARGE PER UNIT SQ SCH (11:25)
[2017-11-03] MEDS: meTOprolol 5 MG/5 ML (LOPRESSOR) VIAL IV PRN ×2 (12:41→18:06)
[2017-11-03] MEDS ORDERED: SEVOFLURANE (ULTANE) 15 ML INHAL SOLN ONE ×5 (13:04→16:16)
[2017-11-03] MEDS ORDERED: fentaNYL INJECTION 100 MCG/2 ML AMP ONE (13:05)
[2017-11-03] MEDS: UMECLIDINIUM BROMIDE (INCRUSE ELLIPTA) 7'S IH SCH (13:41)
[2017-11-03] MEDS: LACTATED RINGERS 1,000 ML IV SCH (15:03)
[2017-11-03] MEDS ORDERED: ROCURONIUM 10 MG/ML 5 ML SYRINGE IV ONE (15:07)
[2017-11-03] MEDS ORDERED: morphine INJ 10 MG/ML 1ML (SYR OR VIAL) ONE (16:03)
[2017-11-03] MEDS ORDERED: ISOFLURANE (FORANE) 15 ML/15 MIN INHALATION ONE (16:25)
--- NOTE | 2017-11-03 17:01 | Diagnostic Imaging Report ---
INDICATION: Right ankle fracture. FINDINGS: Intraoperative views were obtained during placement of an external fixation device. Screws are visualized in the tibial shaft as well as in the calcaneus. An oblique fracture of the distal fibula is noted with a horizontal fracture of the medial malleolus of the distal tibia noted. There is widening of the ankle joint. 34 seconds of fluoroscopy time was used in Surgery. IMPRESSION: Intraoperative fluoroscopy was used for right ankle surgery as above. Dictated by: Dictated on workstation # [id number]
--- NOTE | 2017-11-03 17:04 | Progress Note-Post Operative ---
Post-Operative Progess Note Surgeon (s)/Activity Assistant (s) Surgeon ZEESHAN RAMACHANDRAN DO Activity Assistant: Lobo Little PA-C Pre-Operative Diagnosis Trimalleolar fracture/dislocation Right ankle Post-Operative Diagnosis Same Procedure & Operative Findings Date of Procedure 11/03/17 Procedure Performed/Findings Procedure: Closed reduction/application of multiplanar ankle-spanning external fixator Right leg. Findings: Unstable trimalleolar fracture dislocation Right ankle. Anesthesia Type General Estimated Blood Loss Estimated blood loss (mL): Minimal Specimens/Packing Specimens Removed None. ZEESHAN RAMACHANDRAN DO Nov 03, 2017 17:04
[2017-11-03 18:05] LABS: OCCULT BLOOD,GASTRIC FLUID POSITIVE (NEGATIVE)
[2017-11-03] MEDS: KCL 10 MEQ TAB (MICRO K) PO SCH (21:00)
[2017-11-03] MEDS: SERTRALINE 50 MG (ZOLOFT) TABLET PO SCH (21:54)
[2017-11-03] MEDS: ATORVASTATIN 10 MG (LIPITOR) TABLET PO SCH (21:54)
[2017-11-04] VITALS (33 sets, daily range): BP systolic 121–219; BP diastolic 63–101
[2017-11-04] MEDS: inSUlin ASPART (NovoLOG) 1 UNIT/0.01 ML (CHARGE PER UNIT) SC SCH ×5 (00:06→23:51)
[2017-11-04] MEDS: LACTATED RINGERS 1,000 ML IV SCH ×3 (01:30→21:43)
[2017-11-04] MEDS: RT-ALBUTEROL/IPRATROPIUM 3 ML (DUONEB) VIAL INH SCH ×6 (02:21→21:19)
[2017-11-04] MEDS: fentaNYL INJECTION 100 MCG/2 ML AMP IV PRN ×2 (02:29→04:42)
[2017-11-04] MEDS: PROPOFOL DRIP (ICU) 100 ML IV SCH ×2 (02:38→05:44)
[2017-11-04] MEDS: meTOprolol 5 MG/5 ML (LOPRESSOR) VIAL IV PRN ×3 (02:42→18:06)
[2017-11-04] MEDS: PIPERACILLIN SODIUM/TAZOBACTAM 4.5 GM in NS (IVPB) 100 ML IV SCH ×3 (03:20→20:46)
[2017-11-04 03:26] LABS: ABG BASE EXCESS 1.7 MMOL/L (-2.5-2.5); ABG OXYGEN SATURATION 99 % (94-100); ABG PCO2 40 MMHG (35-45); ABG PH 7.43 (7.37-7.43); ABG PO2 82 MMHG (79-93); ABG TCO2 27.1 MMOL/L (21.0-31.0)
[2017-11-04 03:28] LABS: ALLENS TEST YES-POS; INSPIRED O2 30%; PATIENT TEMP 97.2; VENTILATOR YES
[2017-11-04 04:18] LABS: BASOPHILS % (AUTO) 0 % (0-10); EOSINOPHILS % (AUTO) 0 % (0-10); HEMATOCRIT 25 % (35-52); HEMOGLOBIN 7.7 G/DL (11.5-16.0); LYMPHOCYTES # (AUTO) 0.3 X 10^3 (1.0-4.0); LYMPHOCYTES % (AUTO) 3 % (12-44); MEAN CORPUSCULAR HEMOGLOBIN 26 PG (25-34); MEAN CORPUSCULAR HGB CONC 31 G/DL (32-36); MEAN CORPUSCULAR VOLUME 85 FL (80-99); MEAN PLATELET VOLUME 11.2 FL (7.4-10.4); MONOCYTES # (AUTO) 0.5 X 10^3 (0.0-1.0); MONOCYTES % (AUTO) 5 % (0-12); NEUTROPHILS # (AUTO) 8.7 X 10^3 (1.8-7.8); NEUTROPHILS % (AUTO) 92 % (42-75); PLATELET COUNT 257 10^3/uL (130-400); RED BLOOD COUNT 2.92 10^6/uL (4.35-5.85); RED CELL DISTRIBUTION WIDTH 17.2 % (10.0-14.5); WHITE BLOOD COUNT 9.5 10^3/uL (4.3-11.0)
[2017-11-04 04:38] LABS: BUN/CREATININE RATIO 32; CALCIUM 8.2 MG/DL (8.5-10.1); CARBON DIOXIDE 23 MMOL/L (21-32); CHLORIDE 110 MMOL/L (98-107); CREATININE SERUM 0.59 MG/DL (0.60-1.30); GFR ESTIMATED > 60; GLUCOSE 210 MG/DL (70-105); PHOSPHORUS 2.4 MG/DL (2.3-4.7); POTASSIUM 3.6 MMOL/L (3.6-5.0); SODIUM 139 MMOL/L (135-145)
[2017-11-04] MEDS: POTASSIUM CL 10MEQ/50ML IVPB 50 ML IV SCH ×3 (04:58→06:00)
[2017-11-04] MEDS: MAGNESIUM 1 GM/100 ML IVPB 100 ML IV SCH (06:00)
[2017-11-04] MEDS: KCL 20 MEQ TAB (K-DUR) PO SCH (06:00)
[2017-11-04] MEDS: methylPREDNISolone 40 MG/ML (Solu-MEDROL) VIAL IV SCH ×4 (06:03→23:51)
[2017-11-04] MEDS: MULTIVIT W/MINERALS TAB (THERAGRAN M) PO SCH (06:44)
[2017-11-04] MEDS: RT-ADVAIR HFA 115/21 MCG PER PUFF IH SCH ×2 (06:54→19:05)
[2017-11-04] MEDS: NS IV 1000 ML 1,000 ML IV SCH ×2 (06:56→21:14)
--- NOTE | 2017-11-04 07:11 | Pulmonary Progress Note ---
Subjective Time Seen by Provider: 07:06 Subjective/Events-last exam PT is sedated on vent will d/c sedation and attempt vent weaning. Exam Exam Vital Signs Date Time Temp Pulse Resp B/P (MAP) Pulse Ox O2 Delivery O2 Flow Rate FiO2 11/04/17 06:54 97 Mechanical Ventilator 30 11/04/17 06:44 81 20 97 30 11/04/17 06:00 80 20 161/83 (109) 97 Mechanical Ventilator 30.00 11/04/17 05:44 83 21 159/84 96 Mechanical Ventilator 30.00 11/04/17 05:00 82 22 159/84 (109) 97 Mechanical Ventilator 30.00 11/04/17 04:00 Mechanical Ventilator 30 11/04/17 04:00 82 28 172/91 (118) 95 Mechanical Ventilator 30.00 11/04/17 03:45 97.2 Mechanical Ventilator 30.00 11/04/17 03:00 73 23 165/86 (112) 93 Mechanical Ventilator 30.00 11/04/17 02:38 83 21 171/86 93 Mechanical Ventilator 30.00 11/04/17 02:23 85 26 96 30 11/04/17 02:00 82 27 153/76 (101) 93 Mechanical Ventilator 30.00 11/04/17 01:00 88 33 135/66 (89) 93 Mechanical Ventilator 30.00 11/04/17 01:00 88 11/04/17 00:00 92 32 146/70 (95) 93 Mechanical Ventilator 30.00 11/04/17 00:00 Mechanical Ventilator 30 11/03/17 23:59 97.2 Mechanical Ventilator 30.00 11/03/17 23:47 93 26 94 30 11/03/17 23:47 93 26 146/68 94 Mechanical Ventilator 30.00 11/03/17 23:00 82 21 149/69 (95) 94 Mechanical Ventilator 30.00 11/03/17 22:10 85 19 93 30 11/03/17 22:00 83 23 142/66 (91) 94 Mechanical Ventilator 30.00 11/03/17 21:00 83 26 171/82 (111) 95 Mechanical Ventilator 30.00 11/03/17 20:58 82 21 170/90 95 Mechanical Ventilator 30.00 11/03/17 20:16 83 21 94 30 11/03/17 20:00 84 26 178/88 (118) 95 Mechanical Ventilator 30.00 11/03/17 20:00 Mechanical Ventilator 30 11/03/17 19:45 97.2 Mechanical Ventilator 30.00 11/03/17 19:00 80 11/03/17 19:00 80 25 173/86 (115) 95 Mechanical Ventilator 30.00 11/03/17 18:19 79 25 93 30 11/03/17 18:06 191/96 11/03/17 18:00 90 27 173/84 (113) 94 Mechanical Ventilator 30.00 11/03/17 17:30 90 34 186/96 (126) 95 Mechanical Ventilator 30.00 11/03/17 17:15 90 31 196/96 (129) 94 Mechanical Ventilator 30.00 11/03/17 17:00 96 34 198/101 (133) 94 Mechanical Ventilator 30.00 11/03/17 16:45 85 18 130/78 (95) 98 Mechanical Ventilator 30.00 11/03/17 16:41 79 15 99 30 11/03/17 13:42 92 26 97 30 11/03/17 13:00 103 11/03/17 13:00 103 26 184/90 (121) 95 Mechanical Ventilator 30.00 11/03/17 12:41 190/87 11/03/17 12:00 Mechanical Ventilator 30 11/03/17 12:00 100.1 112 29 190/87 (121) 95 Mechanical Ventilator 30.00 11/03/17 11:57 113 28 96 30 11/03/17 11:00 110 26 159/73 (101) 93 Mechanical Ventilator 30.00 11/03/17 10:28 109 27 93 30 11/03/17 10:00 106 26 154/73 (100) 93 Mechanical Ventilator 30.00 11/03/17 09:57 159/74 11/03/17 09:00 110 30 168/75 (106) 94 Mechanical Ventilator 30.00 11/03/17 08:08 106 24 93 30 11/03/17 08:00 109 23 164/78 (106) 92 Mechanical Ventilator 30.00 11/03/17 08:00 Mechanical Ventilator 30 11/03/17 07:22 98.7 107 24 164/76 91 Mechanical Ventilator 30.00 I & O 11/04/17 07:00 Intake Total 1591 ml Output Total 2030 ml Balance -439 ml General Appearance: No Apparent Distress HEENT: Normal ENT Inspection Neck: Limited Range of Motion Respiratory: Lungs Clear, Normal Breath Sounds, No Accessory Muscle Use, No Respiratory Distress Cardiovascular: Regular Rate, Rhythm, No Gallop, No Murmur Capillary Refill: Less Than 3 Seconds Peripheral Pulses: 2+ Dorsalis Pedis (R), 2+ Left Dors-Pedis (L) Gastrointestinal: non tender, soft Extremity: Normal Capillary Refill, Normal Inspection, Pedal Edema Neurologic/Psychiatric: Other (Sedated) Skin: Normal Color, Warm/Dry, Pallor Lymphatic: No Adenopathy Results Lab Laboratory Tests 11/03/17 03:55 11/04/17 03:35 Assessment/Plan Assessment/Plan Acute ankle fracture -D/C sedation and attempt vent weaning -Pain Control Acute on chronic respiratory failure COPDAE-- pt is on 3 liters of oxygen at home -Solumedrol 40 IV Q 6 -SVNs Q 4 Anemia with gastric occult positive -PT has been on protonix BID since the weekend -Lovenox has been on hold however pt is very high risk for DVT. -I am going to transfuse 1 unit of PRBC and restart Lovenox 40mg SubQ daily -Monitor -Hold off on transfusion MICHAEL with obesity Acute UTI -Cont zosyn Critical Care: Critically Ill Patient Time spent with patient (mins): 30 MK RAMOS DO Nov 04, 2017 07:11
--- NOTE | 2017-11-04 07:28 | Progress Note (SOAP) ---
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 SHE HAD RECENT ANKLE FRACTURE - SURGERY FOR FIXATION YESTERDAY - PT ALSO HAD ACUTE RESPIRATORY FAILURE - HAS BEEN ON VENTILATOR FOR SEVERAL DAYS - DR. RAMOS MANAGING. Review of Systems PT INTUBATED, UNABLE TO RESPOND Objective Exam Vital Signs Date Time Temp Pulse Resp B/P (MAP) Pulse Ox O2 Delivery O2 Flow Rate FiO2 11/04/17 06:54 97 Mechanical Ventilator 30 11/04/17 06:44 81 20 97 30 11/04/17 06:00 80 20 161/83 (109) 97 Mechanical Ventilator 30.00 11/04/17 05:44 83 21 159/84 96 Mechanical Ventilator 30.00 11/04/17 05:00 82 22 159/84 (109) 97 Mechanical Ventilator 30.00 11/04/17 04:00 Mechanical Ventilator 30 11/04/17 04:00 82 28 172/91 (118) 95 Mechanical Ventilator 30.00 11/04/17 03:45 97.2 Mechanical Ventilator 30.00 11/04/17 03:00 73 23 165/86 (112) 93 Mechanical Ventilator 30.00 11/04/17 02:38 83 21 171/86 93 Mechanical Ventilator 30.00 11/04/17 02:23 85 26 96 30 11/04/17 02:00 82 27 153/76 (101) 93 Mechanical Ventilator 30.00 11/04/17 01:00 88 33 135/66 (89) 93 Mechanical Ventilator 30.00 11/04/17 01:00 88 11/04/17 00:00 92 32 146/70 (95) 93 Mechanical Ventilator 30.00 11/04/17 00:00 Mechanical Ventilator 30 11/03/17 23:59 97.2 Mechanical Ventilator 30.00 11/03/17 23:47 93 26 94 30 11/03/17 23:47 93 26 146/68 94 Mechanical Ventilator 30.00 11/03/17 23:00 82 21 149/69 (95) 94 Mechanical Ventilator 30.00 11/03/17 22:10 85 19 93 30 11/03/17 22:00 83 23 142/66 (91) 94 Mechanical Ventilator 30.00 11/03/17 21:00 83 26 171/82 (111) 95 Mechanical Ventilator 30.00 11/03/17 20:58 82 21 170/90 95 Mechanical Ventilator 30.00 11/03/17 20:16 83 21 94 30 11/03/17 20:00 84 26 178/88 (118) 95 Mechanical Ventilator 30.00 11/03/17 20:00 Mechanical Ventilator 30 11/03/17 19:45 97.2 Mechanical Ventilator 30.00 11/03/17 19:00 80 11/03/17 19:00 80 25 173/86 (115) 95 Mechanical Ventilator 30.00 11/03/17 18:19 79 25 93 30 11/03/17 18:06 191/96 11/03/17 18:00 90 27 173/84 (113) 94 Mechanical Ventilator 30.00 11/03/17 17:30 90 34 186/96 (126) 95 Mechanical Ventilator 30.00 11/03/17 17:15 90 31 196/96 (129) 94 Mechanical Ventilator 30.00 11/03/17 17:00 96 34 198/101 (133) 94 Mechanical Ventilator 30.00 11/03/17 16:45 85 18 130/78 (95) 98 Mechanical Ventilator 30.00 11/03/17 16:41 79 15 99 30 11/03/17 13:42 92 26 97 30 11/03/17 13:00 103 11/03/17 13:00 103 26 184/90 (121) 95 Mechanical Ventilator 30.00 11/03/17 12:41 190/87 11/03/17 12:00 Mechanical Ventilator 30 11/03/17 12:00 100.1 112 29 190/87 (121) 95 Mechanical Ventilator 30.00 11/03/17 11:57 113 28 96 30 11/03/17 11:00 110 26 159/73 (101) 93 Mechanical Ventilator 30.00 11/03/17 10:28 109 27 93 30 11/03/17 10:00 106 26 154/73 (100) 93 Mechanical Ventilator 30.00 11/03/17 09:57 159/74 11/03/17 09:00 110 30 168/75 (106) 94 Mechanical Ventilator 30.00 11/03/17 08:08 106 24 93 30 11/03/17 08:00 109 23 164/78 (106) 92 Mechanical Ventilator 30.00 11/03/17 08:00 Mechanical Ventilator 30 I & O 11/04/17 07:00 Intake Total 1591 ml Output Total 2030 ml Balance -439 ml Capillary Refill : Less Than 3 SecondsLess Than 3 Seconds General Appearance: WD/WN, Other (ON VENTILATOR) Respiratory: Decreased Breath Sounds Cardiovascular: Regular Rate, Rhythm Gastrointestinal: normal bowel sounds, soft Extremity: Other (EXTERNAL FIXATOR ON LEFT LOWER LEG) Neurologic/Psychiatric: Other (PT SEDATED) Results Lab Laboratory Tests 11/03/17 11:21: Glucometer 249H 11/03/17 17:50: Gastric Fluid Occult Blood POSITIVE 11/03/17 17:57: Glucometer 245H 11/03/17 23:57: Glucometer 230H 11/04/17 03:10: Blood Gas Puncture Site RIGHT RADIAL, Blood Gas Patient Temperature 97.2, Arterial Blood pH 7.43, Arterial Blood Partial Pressure CO2 40, Arterial Blood Partial Pressure O2 82, Arterial Blood HCO3 26, Arterial Blood Total CO2 27.1, Arterial Blood Oxygen Saturation 99, Arterial Blood Base Excess 1.7, Barrington Test YES-POS, Blood Gas Ventilator Setting YES, Blood Gas Inspired Oxygen 30% 11/04/17 03:35: White Blood Count 9.5, Red Blood Count 2.92L, Hemoglobin 7.7L, Hematocrit 25L, Mean Corpuscular Volume 85, Mean Corpuscular Hemoglobin 26, Mean Corpuscular Hemoglobin Concent 31L, Red Cell Distribution Width 17.2H, Platelet Count 257, Mean Platelet Volume 11.2H, Neutrophils (%) (Auto) 92H, Lymphocytes (%) (Auto) 3L, Monocytes (%) (Auto) 5, Eosinophils (%) (Auto) 0, Basophils (%) (Auto) 0, Neutrophils # (Auto) 8.7H, Lymphocytes # (Auto) 0.3L, Monocytes # (Auto) 0.5, Eosinophils # (Auto) 0.0, Basophils # (Auto) 0.0, Sodium Level 139, Potassium Level 3.6, Chloride Level 110H, Carbon Dioxide Level 23, Anion Gap 6, Blood Urea Nitrogen 19H, Creatinine 0.59L, Estimat Glomerular Filtration Rate > 60, BUN/Creatinine Ratio 32, Glucose Level 210H, Calcium Level 8.2L, Phosphorus Level 2.4, Magnesium Level 2.0 Microbiology 10/30/17 Blood Culture - Preliminary, Resulted No growth 18 Gram Stain - Final, Complete 3/18 Sputum Culture - Final, Complete Usual/normal fang isolated. 318 Urine Culture - Final, Complete Nonenterococcus (Chains Cocci) Assessment/Plan Assessment/Plan Assess & Plan/Chief Complaint RIGHT ANKLE FRACTURE - POD #1 ACUTE ON CHRONIC RESPIRATORY FAILURE - PT ON VENT - PLANNING ON WEANING/ POSSIBLE EXTUBATION TODAY. COPD - ACUTE EXACERBATION WITH RESP FAILURE ABOVE OBESITY SLEEP APNEA URINARY TRACT INFECTION DIABETES MELLITUS ANEMIA RIGHT ANKLE FRACTURE - POD #1 ACUTE ON CHRONIC RESPIRATORY FAILURE - PT ON VENT - PLANNING ON WEANING/ POSSIBLE EXTUBATION TODAY. COPD - ACUTE EXACERBATION WITH RESP FAILURE ABOVE OBESITY SLEEP APNEA - PT ON VENT - WILL NEED CPAP AT NIGHT ONCE EXTUBATED URINARY TRACT INFECTION - ON ANTIBIOTICS DIABETES MELLITUS- ONCE EXTUBATED AND TAKING PO - WILL HAVE TO INITIATE PT'S HOME MEDS ANEMIA WITH HX OF UPPER GI BLEED - MONITOR H AND H - TRANSFUSE IF NEEDED Clinical Quality Measures DVT/VTE Risk/Contraindication: Risk Factor Score Per Nursin RFS Level Per Nursing on Admit: 4+=Very High Contraindications-Pharm: Other *list below* Contraindications-Mechi: Other *list below* PHILIP JOSE MD Nov 04, 2017 07:28
[2017-11-04] MEDS ORDERED: NS IV 1000 ML 1,000 ML IV SCH (07:56)
[2017-11-04] MEDS ORDERED: NALOXONE 0.4 MG/ML 1 ML (NARCAN) VIAL IV PRN (08:00)
[2017-11-04] MEDS ORDERED: ONDANSETRON 4 MG/2 ML (SDV) Z0FRAN IV PRN (08:00)
[2017-11-04] MEDS ORDERED: diphenhydrAMINE 50 MG/ML INJ (BENADRYL) IV PRN (08:00)
--- NOTE | 2017-11-04 08:00 | Diagnostic Imaging Report ---
CHEST 1 VIEW, AP/PA ONLY Indication: Intubation. Comparison: 11/03/2017 Findings: Support Devices: Stable ET and enteric tubes. Chest: Patchy bibasilar pulmonary opacities are unchanged. No pleural effusion or pneumothorax. Stable cardiomediastinal silhouette. Impression: 1. Stable support devices. 2. No adverse development. Dictated by: Dictated on workstation # [id number]
[2017-11-04] MEDS: morphine INJ 4 MG/ML 1 ML (VIAL/SYRINGE) IVP PRN ×2 (08:34→12:22)
[2017-11-04] MEDS: risperiDONE 1 MG (RisperDAL) TAB PO SCH ×2 (08:34→21:28)
[2017-11-04] MEDS: GABAPENTIN 300 MG (NEURONTIN) CAP PO SCH ×2 (08:34→21:28)
[2017-11-04] MEDS: PANTOPRAZOLE 40 MG/10 ML (PROTONIX) VIAL IV SCH ×2 (08:34→20:46)
[2017-11-04] MEDS: PRAMIPEXOLE 0.5 MG TAB (MIRAPEX) PO SCH (08:34)
[2017-11-04] MEDS: amLODIPine 10 MG (NORVASC) TAB PO SCH (08:34)
[2017-11-04] MEDS: ENOXAPARIN 40 MG/0.4 ML (LOVENOX) SYR SC SCH (08:35)
[2017-11-04] MEDS: SENNA W/DOCUSATE (SENOKOT S) TABLET PO SCH (08:43)
[2017-11-04] MEDS: hydrALAZINE (APESOLINE) 20 MG/ML VIAL IV PRN ×2 (09:34→15:48)
[2017-11-04 09:49] LABS: ABG BASE EXCESS 2.1 MMOL/L (-2.5-2.5); ABG OXYGEN SATURATION 88 % (94-100); ABG PCO2 44 MMHG (35-45); ABG PH 7.39 (7.37-7.43); ABG PO2 56 MMHG (79-93); ABG TCO2 27.8 MMOL/L (21.0-31.0)
[2017-11-04 09:51] LABS: ALLENS TEST YES-POS; INSPIRED O2 25%; PATIENT TEMP 98.9; VENTILATOR YES
--- NOTE | 2017-11-04 10:20 | Occ Therapy Progress Note ---
Therapy Progress Note Pt. still on ventilator. Please send new orders when pt. off mechanical ventilation. Will assess pt. at that time for occupational therapy needs. Thank you for the referral. [id number] AURORA SILVEIRA OT Nov 04, 2017 10:20
[2017-11-04] MEDS: DEXMEDETOMIDINE IV SCH ×4 (12:22→21:58)
[2017-11-04] MEDS: NS IV SCH ×4 (12:22→21:58)
[2017-11-04 12:32] LABS: ABG BASE EXCESS 2.6 MMOL/L (-2.5-2.5); ABG OXYGEN SATURATION 97 % (94-100); ABG PCO2 44 MMHG (35-45); ABG PO2 80 MMHG (79-93); ABG TCO2 28.2 MMOL/L (21.0-31.0); ALLENS TEST YES-POS; INSPIRED O2 35%; PATIENT TEMP 99.3; VENTILATOR YES
[2017-11-04] MEDS: inSUlin DETERMIR 1 UNIT/0.01 ML (LEVEMIR) CHARGE PER UNIT SQ SCH (12:45)
[2017-11-04] MEDS: morphine PCA 30 MG/30 ML VIAL IV PRN (13:32)
[2017-11-04] MEDS ORDERED: NS (IVPB) 250 ML ONE (13:41)
[2017-11-04] MEDS: NORMAL SALINE IV SCH ×2 (14:12→23:25)
[2017-11-04] MEDS: NICARDIPINE IV SCH ×2 (14:12→23:25)
--- NOTE | 2017-11-04 14:45 | Anesthesia-General Post-Op ---
General Patient Condition Mental Status/LOC: Same as Preop (Resting comfortably currently, extubated. ) Cardiovascular: Satisfactory Nausea/Vomiting: Absent Respiratory: Satisfactory (Extubated today, appears to be doing well. ) Pain: Controlled Complications: Absent Post Op Complications Complications None Follow Up Care/Instructions Patient Instructions None needed. Anesthesia/Patient Condition Patient Condition Patient is resting comfortably, doing well after surgery, no complaints, stable vital signs but is hypertensive currently, no apparent adverse anesthesia problems. DEVI RAMIREZ DO Nov 04, 2017 14:45
--- NOTE | 2017-11-04 17:59 | Progress Note-Standard ---
Standard Progress Note Progress Notes/Assess & Plan Date Seen by Provider: Nov 04, 2017 Time Seen by Provider: 17:30 Progress/Assessment & Plan Pt ERIC, extubated, still rather lethargic LLE: ex-fix stable, edema decreasing, foot well perfused, all pin sites c/d/i, pt moves all digits well on command Abd soft/NT S/P closed reduction/application of external-fixator Left ankle, POD#1 Strict NWB LLE Mobilize OOB with PT/OT when able Will plan for removal of ex-fix and definitive fixation in 7-10 if medically stable. ZEESHAN RAMACHANDRAN DO Nov 04, 2017 17:59
[2017-11-04] MEDS: HALOPERIDOL 5 MG/ML (HALDOL) AMP IV PRN (20:48)
[2017-11-04] MEDS: KCL 10 MEQ TAB (MICRO K) PO SCH (21:27)
[2017-11-04] MEDS: ATORVASTATIN 10 MG (LIPITOR) TABLET PO SCH (21:28)
[2017-11-04] MEDS: SERTRALINE 50 MG (ZOLOFT) TABLET PO SCH (21:28)
[2017-11-04] MEDS: UMECLIDINIUM BROMIDE (INCRUSE ELLIPTA) 7'S IH SCH (23:21)
[2017-11-05] VITALS (29 sets, daily range): BP systolic 125–199; BP diastolic 62–98
[2017-11-05] MEDS: HALOPERIDOL 5 MG/ML (HALDOL) AMP IV PRN ×2 (02:33→22:58)
[2017-11-05] MEDS: PIPERACILLIN SODIUM/TAZOBACTAM 4.5 GM in NS (IVPB) 100 ML IV SCH (02:35)
[2017-11-05] MEDS: hydrALAZINE (APESOLINE) 20 MG/ML VIAL IV PRN (02:37)
[2017-11-05] MEDS: meTOprolol 5 MG/5 ML (LOPRESSOR) VIAL IV PRN (02:52)
[2017-11-05] MEDS: RT-ALBUTEROL/IPRATROPIUM 3 ML (DUONEB) VIAL INH SCH ×6 (03:17→21:12)
[2017-11-05 03:54] LABS: BASOPHILS % (AUTO) 0 % (0-10); EOSINOPHILS % (AUTO) 0 % (0-10); HEMATOCRIT 33 % (35-52); LYMPHOCYTES % (AUTO) 6 % (12-44); MEAN CORPUSCULAR HEMOGLOBIN 25 PG (25-34); MEAN CORPUSCULAR HGB CONC 30 G/DL (32-36); MEAN CORPUSCULAR VOLUME 84 FL (80-99); MEAN PLATELET VOLUME 10.8 FL (7.4-10.4); MONOCYTES # (AUTO) 1.5 X 10^3 (0.0-1.0); MONOCYTES % (AUTO) 9 % (0-12); NEUTROPHILS # (AUTO) 14.4 X 10^3 (1.8-7.8); NEUTROPHILS % (AUTO) 85 % (42-75); PLATELET COUNT 327 10^3/uL (130-400); RED BLOOD COUNT 3.93 10^6/uL (4.35-5.85); RED CELL DISTRIBUTION WIDTH 17.3 % (10.0-14.5); WHITE BLOOD COUNT 16.9 10^3/uL (4.3-11.0)
[2017-11-05 04:08] LABS: ABG BASE EXCESS 2.9 MMOL/L (-2.5-2.5); ABG OXYGEN SATURATION 98 % (94-100); ABG PCO2 50 MMHG (35-45); ABG PH 7.37 (7.37-7.43); ABG PO2 91 MMHG (79-93); ABG TCO2 29.3 MMOL/L (21.0-31.0)
[2017-11-05 04:09] LABS: ALLENS TEST YES-POS; INSPIRED O2 35%
[2017-11-05 04:10] LABS: PATIENT TEMP 98.6; VENTILATOR NO
[2017-11-05 04:13] LABS: BUN/CREATININE RATIO 33; CALCIUM 9.3 MG/DL (8.5-10.1); CARBON DIOXIDE 26 MMOL/L (21-32); CHLORIDE 114 MMOL/L (98-107); CREATININE SERUM 0.66 MG/DL (0.60-1.30); GFR ESTIMATED > 60; GLUCOSE 170 MG/DL (70-105); PHOSPHORUS 2.8 MG/DL (2.3-4.7); SODIUM 148 MMOL/L (135-145)
[2017-11-05] MEDS: POTASSIUM CL 10MEQ/50ML IVPB 50 ML IV SCH (05:09)
[2017-11-05] MEDS: MAGNESIUM 1 GM/100 ML IVPB 100 ML IV SCH (05:10)
[2017-11-05] MEDS: KCL 20 MEQ TAB (K-DUR) PO SCH (05:52)
[2017-11-05] MEDS: inSUlin ASPART (NovoLOG) 1 UNIT/0.01 ML (CHARGE PER UNIT) SC SCH ×3 (05:52→17:48)
[2017-11-05] MEDS: methylPREDNISolone 40 MG/ML (Solu-MEDROL) VIAL IV SCH ×2 (05:56→17:48)
--- NOTE | 2017-11-05 05:58 | Pulmonary Progress Note ---
Subjective Time Seen by Provider: 06:03 Subjective/Events-last exam PT is doing ok off ventilator currently on BiPAP. Exam Exam Vital Signs Date Time Temp Pulse Resp B/P (MAP) Pulse Ox O2 Delivery O2 Flow Rate FiO2 11/05/17 05:00 81 15 138/65 (89) 93 NIV Bilevel 35.00 11/05/17 04:27 95 20 95 35.00 11/05/17 04:00 98.6 98 20 183/90 (121) 95 NIV Bilevel 35.00 11/05/17 04:00 NIV Bilevel 40 11/05/17 03:17 93 24 93 35.00 11/05/17 03:00 88 21 165/84 (111) 96 NIV Bilevel 35.00 11/05/17 02:00 89 17 139/67 (91) 94 NIV Bilevel 35.00 11/05/17 01:00 98 11/05/17 01:00 97 18 138/64 (88) 94 NIV Bilevel 35.00 11/05/17 00:00 NIV Bilevel 40 11/05/17 00:00 105 20 174/78 (110) 94 NIV Bilevel 35.00 11/04/17 23:40 NIV Bilevel 35.00 11/04/17 23:31 104 23 97 40.00 11/04/17 23:00 102 21 155/73 (100) 96 NIV Bilevel 40.00 11/04/17 22:00 103 20 163/77 (105) 96 NIV Bilevel 40.00 11/04/17 21:25 NIV Bilevel 40.00 11/04/17 21:19 105 21 96 45.00 11/04/17 21:10 110 23 98 45.00 11/04/17 21:00 110 21 186/86 (119) 91 NIV Bilevel 45.00 11/04/17 21:00 30 11/04/17 20:50 High Flow N/C 6.00 11/04/17 20:00 High Flow N/C 5.00 11/04/17 20:00 106 23 174/92 (119) 91 Nasal Cannula 4.00 11/04/17 19:22 99 Nasal Cannula 4.00 11/04/17 19:05 95 Nasal Cannula 5.00 11/04/17 19:00 99.4 98 23 162/77 (105) 94 Nasal Cannula 5.00 11/04/17 19:00 98 11/04/17 18:00 123 24 164/83 (110) 92 Nasal Cannula 5.00 11/04/17 17:00 116 24 144/78 (100) 93 Nasal Cannula 5.00 11/04/17 16:35 99.2 117 30 148/78 93 High Flow N/C 5.00 11/04/17 16:00 High Flow N/C 5.00 11/04/17 16:00 117 27 179/75 (109) 94 Nasal Cannula 5.00 11/04/17 15:49 99.2 11/04/17 15:00 96 25 165/80 (108) 95 High Flow N/C 5.00 11/04/17 14:50 High Flow N/C 5.00 11/04/17 14:39 97 Nasal Cannula 6.00 11/04/17 14:18 99.0 105 25 171/90 96 High Flow N/C 6.00 11/04/17 14:00 116 26 171/90 (117) 95 High Flow N/C 6.00 11/04/17 13:47 98.8 107 26 181/95 High Flow N/C 6.00 11/04/17 13:35 94 Nasal Cannula 6.00 11/04/17 13:35 High Flow N/C 6.00 11/04/17 13:32 28 11/04/17 13:00 114 11/04/17 13:00 114 32 188/88 (121) 95 Vapotherm 45.00 14.00 11/04/17 12:50 91 Vapotherm 14.00 45 11/04/17 12:50 Vapotherm 14.00 45 11/04/17 12:50 Vapotherm 45.00 14.00 11/04/17 12:30 99.3 11/04/17 12:00 105 38 197/90 (125) 95 Mechanical Ventilator 35.00 11/04/17 11:00 95 33 190/99 (129) 96 Mechanical Ventilator 35.00 11/04/17 10:15 Mechanical Ventilator 35.00 11/04/17 10:05 116 32 94 35 11/04/17 10:00 131 25 219/101 (140) 90 Mechanical Ventilator 30.00 11/04/17 09:00 62 33 153/83 (106) 91 Mechanical Ventilator 30.00 3/13/18 08:48 98 38 90 11/04/17 08:15 Mechanical Ventilator 30 11/04/17 08:00 89 30 187/99 (128) 92 Mechanical Ventilator 30.00 11/04/17 07:45 97.9 11/04/17 07:00 86 11/04/17 07:00 86 28 176/95 (122) 98 Mechanical Ventilator 30.00 11/04/17 06:54 97 Mechanical Ventilator 30 11/04/17 06:44 81 20 97 30 11/04/17 06:00 80 20 161/83 (109) 97 Mechanical Ventilator 30.00 I & O 11/05/17 07:00 Intake Total 335 ml Output Total 3110 ml Balance -2775 ml General Appearance: Mild Distress HEENT: Normal ENT Inspection Neck: Limited Range of Motion Respiratory: Lungs Clear, Normal Breath Sounds, No Accessory Muscle Use, No Respiratory Distress Cardiovascular: Regular Rate, Rhythm, No Gallop, No Murmur Capillary Refill: Less Than 3 Seconds Peripheral Pulses: 2+ Dorsalis Pedis (R), 2+ Left Dors-Pedis (L) Gastrointestinal: non tender, soft Extremity: Normal Capillary Refill, Normal Inspection, Pedal Edema Neurologic/Psychiatric: Other (Sedated) Skin: Normal Color, Warm/Dry, Pallor Lymphatic: No Adenopathy Results Lab Laboratory Tests 11/04/17 03:35 11/05/17 03:45 Assessment/Plan Assessment/Plan Acute ankle fracture -Pain Control Acute on chronic respiratory failure -Lasix 40mg IV X 1 COPDAE-- pt is on 3 liters of oxygen at home -Solumedrol 40 IV Q 6 -SVNs Q 4 HTN urgency -Cardene gtt -start po lopressor, lisinopril, and HCTZ Anemia with gastric occult positive -PT has been on protonix BID since the weekend -Lovenox has been on hold however pt is very high risk for DVT. -I am going to transfuse 1 unit of PRBC and restart Lovenox 40mg SubQ daily -Monitor -Hold off on transfusion MICHAEL with obesity Acute UTI -Cont Zosyn 233 Critical Care: Critically Ill Patient MK RAMOS DO Nov 05, 2017 05:58
[2017-11-05] MEDS: morphine PCA 30 MG/30 ML VIAL IV PRN (06:06)
[2017-11-05] MEDS ORDERED: KCL 10 MEQ TAB (MICRO K) PO ONE (06:15)
[2017-11-05] MEDS ORDERED: FUROSEMIDE 40 MG/4 ML INJ (LASIX) IVP ONE (06:15)
[2017-11-05] MEDS: NICARDIPINE IV SCH ×2 (06:42→17:48)
[2017-11-05] MEDS: NORMAL SALINE IV SCH ×2 (06:42→17:48)
[2017-11-05] MEDS: MULTIVIT W/MINERALS TAB (THERAGRAN M) PO SCH (07:09)
--- NOTE | 2017-11-05 07:29 | Progress Note (SOAP) ---
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 SHE HAD RECENT ANKLE FRACTURE - SURGERY FOR FIXATION ON 11/03/[address] RAMACHANDRAN PT EXTUBATED ON 11/04/17 PT REPORTS THAT HER PAIN IS NOT WELL CONTROLLED - SHE IS CONFUSED STATING THAT SHE WAS TOLD SHE COULD LEAVE THE HOSPITAL TODAY. Review of Systems General: Fatigue Pulmonary: Dyspnea Cardiovascular: No: Chest Pain, Palpitations Gastrointestinal: No: Nausea, Abdominal Pain Musculoskeletal: leg pain (RIGHT LEG) Neurological: Weakness, Confusion Objective Exam Vital Signs Date Time Temp Pulse Resp B/P (MAP) Pulse Ox O2 Delivery O2 Flow Rate FiO2 11/05/17 06:55 108 21 91 35.00 11/05/17 06:06 15 11/05/17 06:00 105 20 199/98 (131) 92 NIV Bilevel 35.00 11/05/17 05:00 81 15 138/65 (89) 93 NIV Bilevel 35.00 11/05/17 04:27 95 20 95 35.00 11/05/17 04:00 98.6 98 20 183/90 (121) 95 NIV Bilevel 35.00 11/05/17 04:00 NIV Bilevel 40 11/05/17 03:17 93 24 93 35.00 11/05/17 03:00 88 21 165/84 (111) 96 NIV Bilevel 35.00 11/05/17 02:00 89 17 139/67 (91) 94 NIV Bilevel 35.00 11/05/17 01:00 98 11/05/17 01:00 97 18 138/64 (88) 94 NIV Bilevel 35.00 11/05/17 00:00 NIV Bilevel 40 11/05/17 00:00 105 20 174/78 (110) 94 NIV Bilevel 35.00 11/04/17 23:40 NIV Bilevel 35.00 11/04/17 23:31 104 23 97 40.00 11/04/17 23:00 102 21 155/73 (100) 96 NIV Bilevel 40.00 11/04/17 22:00 103 20 163/77 (105) 96 NIV Bilevel 40.00 11/04/17 21:25 NIV Bilevel 40.00 11/04/17 21:19 105 21 96 45.00 11/04/17 21:10 110 23 98 45.00 11/04/17 21:00 110 21 186/86 (119) 91 NIV Bilevel 45.00 11/04/17 21:00 30 11/04/17 20:50 High Flow N/C 6.00 11/04/17 20:00 High Flow N/C 5.00 11/04/17 20:00 106 23 174/92 (119) 91 Nasal Cannula 4.00 11/04/17 19:22 99 Nasal Cannula 4.00 11/04/17 19:05 95 Nasal Cannula 5.00 11/04/17 19:00 99.4 98 23 162/77 (105) 94 Nasal Cannula 5.00 11/04/17 19:00 98 11/04/17 18:00 123 24 164/83 (110) 92 Nasal Cannula 5.00 11/04/17 17:00 116 24 144/78 (100) 93 Nasal Cannula 5.00 11/04/17 16:35 99.2 117 30 148/78 93 High Flow N/C 5.00 11/04/17 16:00 High Flow N/C 5.00 11/04/17 16:00 117 27 179/75 (109) 94 Nasal Cannula 5.00 11/04/17 15:49 99.2 11/04/17 15:00 96 25 165/80 (108) 95 High Flow N/C 5.00 11/04/17 14:50 High Flow N/C 5.00 11/04/17 14:39 97 Nasal Cannula 6.00 11/04/17 14:18 99.0 105 25 171/90 96 High Flow N/C 6.00 11/04/17 14:00 116 26 171/90 (117) 95 High Flow N/C 6.00 11/04/17 13:47 98.8 107 26 181/95 High Flow N/C 6.00 11/04/17 13:35 94 Nasal Cannula 6.00 11/04/17 13:35 High Flow N/C 6.00 11/04/17 13:32 28 11/04/17 13:00 114 11/04/17 13:00 114 32 188/88 (121) 95 Vapotherm 45.00 14.00 11/04/17 12:50 91 Vapotherm 14.00 45 11/04/17 12:50 Vapotherm 14.00 45 11/04/17 12:50 Vapotherm 45.00 14.00 11/04/17 12:30 99.3 11/04/17 12:00 105 38 197/90 (125) 95 Mechanical Ventilator 35.00 11/04/17 11:00 95 33 190/99 (129) 96 Mechanical Ventilator 35.00 11/04/17 10:15 Mechanical Ventilator 35.00 11/04/17 10:05 116 32 94 35 11/04/17 10:00 131 25 219/101 (140) 90 Mechanical Ventilator 30.00 11/04/17 09:00 62 33 153/83 (106) 91 Mechanical Ventilator 30.00 11/04/17 08:48 98 38 90 11/04/17 08:15 Mechanical Ventilator 30 11/04/17 08:00 89 30 187/99 (128) 92 Mechanical Ventilator 30.00 11/04/17 07:45 97.9 I & O 11/05/17 07:00 Intake Total 335 ml Output Total 3610 ml Balance -3275 ml Capillary Refill : Less Than 3 SecondsLess Than 3 Seconds General Appearance: WD/WN, Other (PT ON BIPAP) Neck: Supple Respiratory: Crackles, Decreased Breath Sounds Cardiovascular: Regular Rate, Rhythm Gastrointestinal: normal bowel sounds, non tender, soft Extremity: Other (UPPER AND LOWER EXTREMITY EDEMA - EXTERNAL FIXATOR ON RIGHT LOWER LEG/ANKLE - GOOD PERFUSION, BRUISING ON RIGHT LEG) Neurologic/Psychiatric: Alert, Other (ORIENTED TO PERSON, NOT PLACE, NOT TIME) Results Lab Laboratory Tests 11/04/17 09:26: Blood Gas Puncture Site R RAD, Blood Gas Patient Temperature 98.9, Arterial Blood pH 7.39, Arterial Blood Partial Pressure CO2 44, Arterial Blood Partial Pressure O2 56L, Arterial Blood HCO3 27, Arterial Blood Total CO2 27.8, Arterial Blood Oxygen Saturation 88L, Arterial Blood Base Excess 2.1, Barrington Test YES-POS, Blood Gas Ventilator Setting YES, Blood Gas Inspired Oxygen 25% 11/04/17 12:25: Blood Gas Puncture Site R RAD, Blood Gas Patient Temperature 99.3, Arterial Blood pH 7.40, Arterial Blood Partial Pressure CO2 44, Arterial Blood Partial Pressure O2 80, Arterial Blood HCO3 27, Arterial Blood Total CO2 28.2, Arterial Blood Oxygen Saturation 97, Arterial Blood Base Excess 2.6H, Barrington Test YES-POS , Blood Gas Ventilator Setting YES, Blood Gas Inspired Oxygen 35% 11/04/17 12:43: Glucometer 242H 11/04/17 18:13: Glucometer 204H 11/05/17 03:45: White Blood Count 16.9H, Red Blood Count 3.93L, Hemoglobin 10.0#L, Hematocrit 33L, Mean Corpuscular Volume 84, Mean Corpuscular Hemoglobin 25, Mean Corpuscular Hemoglobin Concent 30L, Red Cell Distribution Width 17.3H, Platelet Count 327, Mean Platelet Volume 10.8H, Neutrophils (%) (Auto) 85H, Lymphocytes ( %) (Auto) 6L, Monocytes (%) (Auto) 9, Eosinophils (%) (Auto) 0, Basophils (%) ( Auto) 0, Neutrophils # (Auto) 14.4H, Lymphocytes # (Auto) 1.0, Monocytes # (Auto ) 1.5H, Eosinophils # (Auto) 0.0, Basophils # (Auto) 0.0, Sodium Level 148H, Potassium Level 4.0, Chloride Level 114H, Carbon Dioxide Level 26, Anion Gap 8, Blood Urea Nitrogen 22H, Creatinine 0.66, Estimat Glomerular Filtration Rate > 60, BUN/Creatinine Ratio 33, Glucose Level 170H, Calcium Level 9.3, Phosphorus Level 2.8, Magnesium Level 2.0, B-Type Natriuretic Peptide 209.3H 11/05/17 04:02: Blood Gas Puncture Site RIGHT RADIAL, Blood Gas Patient Temperature 98.6, Arterial Blood pH 7.37, Arterial Blood Partial Pressure CO2 50H, Arterial Blood Partial Pressure O2 91, Arterial Blood HCO3 28H, Arterial Blood Total CO2 29.3, Arterial Blood Oxygen Saturation 98, Arterial Blood Base Excess 2.9H, Barrington Test YES-POS, Blood Gas Ventilator Setting NO, Blood Gas Inspired Oxygen 35% Microbiology 10/30/17 Blood Culture - Preliminary, Resulted No growth 11/01/17 Gram Stain - Final, Complete 11/01/17 Sputum Culture - Final, Complete Usual/normal fang isolated. 10/30/17 Urine Culture - Final, Complete Nonenterococcus (Chains Cocci) Assessment/Plan Assessment/Plan Assess & Plan/Chief Complaint RIGHT ANKLE FRACTURE - POD #2 ACUTE ON CHRONIC RESPIRATORY FAILURE COPD - ACUTE EXACERBATION WITH RESP FAILURE ABOVE OBESITY SLEEP APNEA URINARY TRACT INFECTION DIABETES MELLITUS ANEMIA UNCONTROLLED HYPERTENSION RIGHT ANKLE FRACTURE - POD #2 ACUTE ON CHRONIC RESPIRATORY FAILURE -PT EXTUBATED ON 11/04/17 - TRANSITION TO VAPOTHERM TODAY FROM BIPAP COPD - ACUTE EXACERBATION WITH RESP FAILURE ABOVE OBESITY SLEEP APNEA - PT ON VENT - WILL NEED PRESSURE SUPPORT AT NIGHT URINARY TRACT INFECTION - ON ANTIBIOTICS DIABETES MELLITUS- ONCE EXTUBATED AND TAKING PO - WILL HAVE TO INITIATE PT'S HOME MEDS ANEMIA WITH HX OF UPPER GI BLEED - MONITOR H AND H - TRANSFUSED 11/04/17 UNCONTROLLED HYPERTENSION - MULTIFACTORIAL - PT HAS UNCONTROLLED PAIN - 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 Clinical Quality Measures DVT/VTE Risk/Contraindication: Risk Factor Score Per Nursin RFS Level Per Nursing on Admit: 4+=Very High Contraindications-Pharm: Other *list below* Contraindications-Mechi: Other *list below* PHILIP JOSE MD Nov 05, 2017 07:28
[2017-11-05] MEDS: PANTOPRAZOLE 40 MG/10 ML (PROTONIX) VIAL IV SCH ×2 (07:39→20:17)
[2017-11-05] MEDS: GABAPENTIN 300 MG (NEURONTIN) CAP PO SCH ×2 (07:40→20:18)
[2017-11-05] MEDS: risperiDONE 1 MG (RisperDAL) TAB PO SCH ×2 (07:40→20:18)
[2017-11-05] MEDS: PRAMIPEXOLE 0.5 MG TAB (MIRAPEX) PO SCH (07:40)
[2017-11-05] MEDS: ENOXAPARIN 40 MG/0.4 ML (LOVENOX) SYR SC SCH (07:40)
[2017-11-05] MEDS: SENNA W/DOCUSATE (SENOKOT S) TABLET PO SCH (07:40)
[2017-11-05] MEDS: meTOprolol TARTRATE 25 MG (LOPRESSOR) TABLET PO SCH ×2 (07:41→20:18)
[2017-11-05] MEDS: amLODIPine 10 MG (NORVASC) TAB PO SCH (07:41)
--- NOTE | 2017-11-05 07:57 | Diagnostic Imaging Report ---
INDICATION: Dyspnea. Comparison with 11/04/2017. ET tube has been removed. The lungs are well-aerated. There are no infiltrates. The heart is not enlarged. There is no pulmonary edema. No hilar adenopathy. No pneumothorax or pleural effusions. IMPRESSION: Satisfactory extubation chest. Dictated by: Dictated on workstation # [id number]
[2017-11-05] MEDS ORDERED: HYDROCHLOROTHIAZIDE 25 MG (HCTZ) TAB PO SCH (09:00)
[2017-11-05] MEDS ORDERED: lisINopril 20 MG (PRINIVIL) TABLET PO SCH (09:00)
[2017-11-05] MEDS: RT-ADVAIR HFA 115/21 MCG PER PUFF IH SCH ×2 (11:33→18:29)
[2017-11-05] MEDS: UMECLIDINIUM BROMIDE (INCRUSE ELLIPTA) 7'S IH SCH (11:34)
[2017-11-05] MEDS: inSUlin DETERMIR 1 UNIT/0.01 ML (LEVEMIR) CHARGE PER UNIT SQ SCH (12:04)
[2017-11-05] MEDS: NS IV 1000 ML 1,000 ML IV SCH (12:08)
[2017-11-05] MEDS: DEXMEDETOMIDINE IV SCH ×4 (12:45→20:04)
[2017-11-05] MEDS: NS IV SCH ×4 (12:45→20:04)
[2017-11-05] MEDS: morphine INJ 4 MG/ML 1 ML (VIAL/SYRINGE) IVP PRN ×2 (19:09→22:58)
[2017-11-05] MEDS: SERTRALINE 50 MG (ZOLOFT) TABLET PO SCH (20:18)
[2017-11-05] MEDS: KCL 10 MEQ TAB (MICRO K) PO SCH (20:18)
[2017-11-05] MEDS: ATORVASTATIN 10 MG (LIPITOR) TABLET PO SCH (20:18)
[2017-11-05 22:00] LABS: ABG BASE EXCESS 5.7 MMOL/L (-2.5-2.5); ABG OXYGEN SATURATION 83 % (94-100); ABG PCO2 51 MMHG (35-45); ABG PH 7.39 (7.37-7.43); ABG PO2 50 MMHG (79-93); ABG TCO2 31.9 MMOL/L (21.0-31.0); ALLENS TEST YES-POS; INSPIRED O2 2L; PATIENT TEMP 99.4; VENTILATOR NO
--- NOTE | 2017-11-05 22:12 | Diagnostic Imaging Report ---
INDICATION: Respiratory distress. COMPARISON STUDY: Chest from 3:36 a.m. FINDINGS: Portable view of the chest demonstrates the heart size to appear a little larger. This is probably due to the portable technique. The lungs are clear. The vascularity is normal. There are no pleural effusions. IMPRESSION: Questionable increase of the heart size. This is most likely due to the portable technique. The lungs are otherwise clear. Dictated by: Dictated on workstation # [id number]
[2017-11-05 22:28] LABS: BASOPHILS % (AUTO) 0 % (0-10); EOSINOPHILS % (AUTO) 0 % (0-10); HEMATOCRIT 32 % (35-52); HEMOGLOBIN 9.6 G/DL (11.5-16.0); LYMPHOCYTES # (AUTO) 0.4 X 10^3 (1.0-4.0); LYMPHOCYTES % (AUTO) 3 % (12-44); MEAN CORPUSCULAR HEMOGLOBIN 25 PG (25-34); MEAN CORPUSCULAR HGB CONC 30 G/DL (32-36); MEAN CORPUSCULAR VOLUME 84 FL (80-99); MEAN PLATELET VOLUME 10.4 FL (7.4-10.4); MONOCYTES # (AUTO) 0.4 X 10^3 (0.0-1.0); MONOCYTES % (AUTO) 3 % (0-12); NEUTROPHILS # (AUTO) 13.7 X 10^3 (1.8-7.8); NEUTROPHILS % (AUTO) 94 % (42-75); PLATELET COUNT 263 10^3/uL (130-400); RED BLOOD COUNT 3.78 10^6/uL (4.35-5.85); RED CELL DISTRIBUTION WIDTH 16.9 % (10.0-14.5); WHITE BLOOD COUNT 14.5 10^3/uL (4.3-11.0)
[2017-11-05 22:41] LABS: ALANINE AMINOTRANSFERASE 27 U/L (0-55); ALBUMIN 3.4 GM/DL (3.2-4.5); ALKALINE PHOSPHATASE 54 U/L (40-136); BAND NEUTROPHILS 0 %; BASOPHILS % (MANUAL) 0 %; BILIRUBIN,DIRECT 0.2 MG/DL (0.0-0.3); BILIRUBIN,INDIRECT 0.2 MG/DL; BILIRUBIN,TOTAL 0.4 MG/DL (0.1-1.0); BUN/CREATININE RATIO 34; CALCIUM 9.4 MG/DL (8.5-10.1); CARBON DIOXIDE 28 MMOL/L (21-32); CHLORIDE 103 MMOL/L (98-107); CREATININE SERUM 0.65 MG/DL (0.60-1.30); EOSINOPHILS % (MANUAL) 0 %; GFR ESTIMATED > 60; GLUCOSE 220 MG/DL (70-105); LYMPHOCYTES % (MANUAL) 3 %; MAGNESIUM 1.6 MG/DL (1.8-2.4); MONOCYTES % (MANUAL) 3 %; NEUTROPHILS % (MANUAL) 94 %; RBC MORPH NORMAL; SODIUM 141 MMOL/L (135-145); TOTAL PROTEIN 5.8 GM/DL (6.4-8.2)
[2017-11-06] VITALS (30 sets, daily range): BP systolic 125–203; BP diastolic 60–94
[2017-11-06] MEDS: inSUlin ASPART (NovoLOG) 1 UNIT/0.01 ML (CHARGE PER UNIT) SC SCH ×4 (00:08→18:25)
[2017-11-06] MEDS: RT-ALBUTEROL/IPRATROPIUM 3 ML (DUONEB) VIAL INH SCH ×6 (01:34→21:32)
[2017-11-06 03:31] LABS: BASOPHILS % (AUTO) 0 % (0-10); EOSINOPHILS % (AUTO) 0 % (0-10); HEMATOCRIT 32 % (35-52); HEMOGLOBIN 9.7 G/DL (11.5-16.0); LYMPHOCYTES # (AUTO) 0.7 X 10^3 (1.0-4.0); LYMPHOCYTES % (AUTO) 5 % (12-44); MEAN CORPUSCULAR HEMOGLOBIN 25 PG (25-34); MEAN CORPUSCULAR HGB CONC 30 G/DL (32-36); MEAN CORPUSCULAR VOLUME 84 FL (80-99); MEAN PLATELET VOLUME 10.5 FL (7.4-10.4); MONOCYTES # (AUTO) 0.7 X 10^3 (0.0-1.0); MONOCYTES % (AUTO) 5 % (0-12); NEUTROPHILS # (AUTO) 11.6 X 10^3 (1.8-7.8); NEUTROPHILS % (AUTO) 89 % (42-75); PLATELET COUNT 256 10^3/uL (130-400); RED BLOOD COUNT 3.82 10^6/uL (4.35-5.85); WHITE BLOOD COUNT 12.9 10^3/uL (4.3-11.0)
[2017-11-06 03:46] LABS: ABG BASE EXCESS 6.5 MMOL/L (-2.5-2.5); ABG OXYGEN SATURATION 95 % (94-100); ABG PCO2 53 MMHG (35-45); ABG PH 7.39 (7.37-7.43); ABG PO2 71 MMHG (79-93); ABG TCO2 33.1 MMOL/L (21.0-31.0)
[2017-11-06 03:47] LABS: ALLENS TEST YES-POS; INSPIRED O2 35% FIO2; PATIENT TEMP 98.3; VENTILATOR NO
[2017-11-06 03:51] LABS: BUN/CREATININE RATIO 35; CALCIUM 9.4 MG/DL (8.5-10.1); CARBON DIOXIDE 30 MMOL/L (21-32); CHLORIDE 103 MMOL/L (98-107); CREATININE SERUM 0.63 MG/DL (0.60-1.30); GFR ESTIMATED > 60; GLUCOSE 217 MG/DL (70-105); MAGNESIUM 1.8 MG/DL (1.8-2.4); PHOSPHORUS 4.3 MG/DL (2.3-4.7); POTASSIUM 4.1 MMOL/L (3.6-5.0); SODIUM 142 MMOL/L (135-145)
[2017-11-06] MEDS: NICARDIPINE IV SCH (05:46)
[2017-11-06] MEDS: NORMAL SALINE IV SCH (05:46)
[2017-11-06] MEDS: POTASSIUM CL 10MEQ/50ML IVPB 50 ML IV SCH (06:04)
[2017-11-06] MEDS: MAGNESIUM 1 GM/100 ML IVPB 100 ML IV SCH (06:04)
[2017-11-06] MEDS: KCL 20 MEQ TAB (K-DUR) PO SCH (06:04)
[2017-11-06] MEDS: methylPREDNISolone 40 MG/ML (Solu-MEDROL) VIAL IV SCH (06:04)
[2017-11-06] MEDS: RT-ADVAIR HFA 115/21 MCG PER PUFF IH SCH ×3 (06:37→18:29)
--- NOTE | 2017-11-06 06:50 | Diagnostic Imaging Report ---
INDICATION: Dyspnea. COMPARISON: 11/05/2017 FINDINGS: Single frontal view of the chest demonstrates mild enlargement of the cardiac silhouette. Pulmonary vasculature is within normal limits. The lungs are well aerated and clear. No large pleural effusion or pneumothorax is seen. The visualized osseous structures show no acute abnormalities. IMPRESSION: 1. Mild enlargement of the cardiac silhouette, but no evidence of failure or focal infiltrate. Findings may be accentuated by portable technique. Dictated by: Dictated on workstation # [id number]
--- NOTE | 2017-11-06 07:21 | Pulmonary Progress Note ---
Subjective Time Seen by Provider: 07:34 Subjective/Events-last exam pt is currently on BiPAP. Focused Exam Evaluation Lactate Level Laboratory Tests 11/05/17 22:15: Lactic Acid Level 0.58 Exam Exam Vital Signs Date Time Temp Pulse Resp B/P (MAP) Pulse Ox O2 Delivery O2 Flow Rate FiO2 11/06/17 06:38 79 18 96 35.00 11/06/17 06:00 88 14 132/77 (95) 97 NIV Bilevel 35.00 11/06/17 05:00 92 17 158/76 (103) 95 NIV Bilevel 35.00 11/06/17 04:00 98.3 11/06/17 04:00 88 18 147/75 (99) 94 NIV Bilevel 35.00 11/06/17 04:00 NIV Bilevel 35 11/06/17 03:35 92 15 97 35.00 11/06/17 03:00 98 17 148/78 (101) 93 NIV Bilevel 35.00 11/06/17 02:00 101 18 176/85 (115) 97 NIV Bilevel 35.00 11/06/17 01:34 93 17 95 35.00 11/06/17 01:00 95 11/06/17 01:00 92 16 159/74 (102) 95 NIV Bilevel 35.00 11/06/17 00:00 96 19 137/62 (87) 95 NIV Bilevel 35.00 11/06/17 00:00 99.4 11/06/17 00:00 NIV Bilevel 35 11/05/17 23:41 NIV Bilevel 35.00 11/05/17 23:40 102 20 94 35.00 11/05/17 23:00 108 22 150/68 (95) 97 Nasal Cannula 2.00 11/05/17 22:00 116 26 136/77 (96) 96 Nasal Cannula 2.00 11/05/17 21:13 118 23 96 35.00 11/05/17 21:00 107 24 146/65 (92) 91 Nasal Cannula 2.00 11/05/17 20:00 Nasal Cannula 2.00 11/05/17 20:00 121 29 190/81 (117) 92 Nasal Cannula 2.00 11/05/17 20:00 99.2 Nasal Cannula 2.00 11/05/17 19:00 121 11/05/17 19:00 117 19 199/90 (126) 95 Nasal Cannula 2.00 11/05/17 18:35 Nasal Cannula 2.00 11/05/17 18:30 96 Nasal Cannula 2.00 11/05/17 18:00 101 17 175/82 (113) 98 Nasal Cannula 2.00 11/05/17 17:00 98 21 180/95 (123) 98 Nasal Cannula 2.00 11/05/17 16:00 Nasal Cannula 2.00 11/05/17 16:00 98 21 171/82 (111) 99 Nasal Cannula 2.00 11/05/17 15:00 111 31 157/79 (105) 97 Nasal Cannula 2.00 11/05/17 14:18 92 Nasal Cannula 2.00 11/05/17 14:00 96 19 156/66 (96) 94 Nasal Cannula 2.00 11/05/17 13:00 101 21 144/63 (90) 94 Nasal Cannula 2.00 11/05/17 13:00 101 11/05/17 12:00 Nasal Cannula 2.00 11/05/17 12:00 98 22 150/70 (96) 93 Nasal Cannula 2.00 11/05/17 11:36 Nasal Cannula 2.00 11/05/17 11:27 96 11/05/17 11:00 97 21 128/66 (86) 93 Vapotherm 35.00 15.00 11/05/17 10:00 97 23 150/64 (92) 94 Vapotherm 35.00 15.00 11/05/17 09:00 87 21 143/69 (93) 96 Vapotherm 35.00 15.00 11/05/17 08:00 NIV Bilevel 35 11/05/17 08:00 106 21 161/79 (106) 96 Vapotherm 35.00 15.00 11/05/17 07:30 Vapotherm 35.00 15.00 I & O 11/06/17 07:00 Intake Total 1250 ml Output Total 6400 ml Balance -5150 ml General Appearance: WD/WN, Mild Distress, Other (PT ON BIPAP) HEENT: Normal ENT Inspection Neck: Supple Respiratory: Crackles, Decreased Breath Sounds Cardiovascular: Regular Rate, Rhythm Capillary Refill: Less Than 3 Seconds Peripheral Pulses: 2+ Dorsalis Pedis (R), 2+ Left Dors-Pedis (L) Gastrointestinal: normal bowel sounds, non tender, soft Extremity: Other (UPPER AND LOWER EXTREMITY EDEMA - EXTERNAL FIXATOR ON RIGHT LOWER LEG/ANKLE - GOOD PERFUSION, BRUISING ON RIGHT LEG) Neurologic/Psychiatric: Other (pt is currently sleeping ) Skin: Normal Color, Warm/Dry, Pallor Lymphatic: No Adenopathy Results Lab Laboratory Tests 11/05/17 03:45 11/05/17 22:15 11/06/17 03:15 Assessment/Plan Assessment/Plan Acute ankle fracture -Pain Control Acute on chronic respiratory failure -Lasix 40mg IV X 1 COPDAE-- pt is on 3 liters of oxygen at home -Solumedrol 40 IV Q 12-- D/C -SVNs Q 4 HTN urgency -Cardene gtt- titrate to d/c as tolerated - lopressor, and HCTZ Anemia with gastric occult positive -PT has been on protonix BID since the weekend -Lovenox has been on hold however pt is very high risk for DVT. -I am going to transfuse 1 unit of PRBC and restart Lovenox 40mg SubQ daily -Monitor -Hold off on transfusion MICHAEL with obesity Acute UTI -Cont Zosyn 233 Critical Care: Critically Ill Patient MK RAMOS DO Nov 06, 2017 07:21
[2017-11-06] MEDS: DEXMEDETOMIDINE IV SCH ×4 (07:50→15:09)
[2017-11-06] MEDS: NS IV SCH ×4 (07:50→15:09)
--- NOTE | 2017-11-06 07:58 | Progress Note (SOAP) ---
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 SHE HAS A RIGHT ANKLE FRACTURE, RESPIRATORY FAILURE, HAS BEEN WEANED OFF OF VENT , WAS ON BIPAP LAST NIGHT, NOW ON VAPOTHERM. PER NURSING STAFF, PT HAS HAD ELEVATED BLOOD PRESSURES, HAD TO GO BACK ON DRIP TO CONTROL PRESSURES. Review of Systems General: No Chills, Fatigue, Malaise Pulmonary: Dyspnea Cardiovascular: No: Chest Pain Gastrointestinal: No: Nausea, Abdominal Pain Musculoskeletal: leg pain (RIGHT LEG) Neurological: Weakness, Confusion Focused Exam Evaluation Lactate Level Laboratory Tests 11/05/17 22:15: Lactic Acid Level 0.58 Objective Exam Vital Signs Date Time Temp Pulse Resp B/P (MAP) Pulse Ox O2 Delivery O2 Flow Rate FiO2 11/06/17 07:33 93 17 95 25.00 11/06/17 07:00 81 11/06/17 06:00 88 14 132/77 (95) 97 NIV Bilevel 35.00 11/06/17 05:00 92 17 158/76 (103) 95 NIV Bilevel 35.00 11/06/17 04:00 98.3 11/06/17 04:00 88 18 147/75 (99) 94 NIV Bilevel 35.00 11/06/17 04:00 NIV Bilevel 35 11/06/17 03:35 92 15 97 35.00 11/06/17 03:00 98 17 148/78 (101) 93 NIV Bilevel 35.00 11/06/17 02:00 101 18 176/85 (115) 97 NIV Bilevel 35.00 11/06/17 01:34 93 17 95 35.00 11/06/17 01:00 95 11/06/17 01:00 92 16 159/74 (102) 95 NIV Bilevel 35.00 11/06/17 00:00 96 19 137/62 (87) 95 NIV Bilevel 35.00 11/06/17 00:00 99.4 11/06/17 00:00 NIV Bilevel 35 11/05/17 23:41 NIV Bilevel 35.00 11/05/17 23:40 102 20 94 35.00 11/05/17 23:00 108 22 150/68 (95) 97 Nasal Cannula 2.00 11/05/17 22:00 116 26 136/77 (96) 96 Nasal Cannula 2.00 11/05/17 21:13 118 23 96 35.00 11/05/17 21:00 107 24 146/65 (92) 91 Nasal Cannula 2.00 11/05/17 20:00 Nasal Cannula 2.00 11/05/17 20:00 121 29 190/81 (117) 92 Nasal Cannula 2.00 11/05/17 20:00 99.2 Nasal Cannula 2.00 11/05/17 19:00 121 11/05/17 19:00 117 19 199/90 (126) 95 Nasal Cannula 2.00 11/05/17 18:35 Nasal Cannula 2.00 11/05/17 18:30 96 Nasal Cannula 2.00 11/05/17 18:00 101 17 175/82 (113) 98 Nasal Cannula 2.00 11/05/17 17:00 98 21 180/95 (123) 98 Nasal Cannula 2.00 11/05/17 16:00 Nasal Cannula 2.00 11/05/17 16:00 98 21 171/82 (111) 99 Nasal Cannula 2.00 11/05/17 15:00 111 31 157/79 (105) 97 Nasal Cannula 2.00 11/05/17 14:18 92 Nasal Cannula 2.00 11/05/17 14:00 96 19 156/66 (96) 94 Nasal Cannula 2.00 11/05/17 13:00 101 21 144/63 (90) 94 Nasal Cannula 2.00 11/05/17 13:00 101 11/05/17 12:00 Nasal Cannula 2.00 11/05/17 12:00 98 22 150/70 (96) 93 Nasal Cannula 2.00 11/05/17 11:36 Nasal Cannula 2.00 11/05/17 11:27 96 11/05/17 11:00 97 21 128/66 (86) 93 Vapotherm 35.00 15.00 11/05/17 10:00 97 23 150/64 (92) 94 Vapotherm 35.00 15.00 11/05/17 09:00 87 21 143/69 (93) 96 Vapotherm 35.00 15.00 11/05/17 08:00 NIV Bilevel 35 11/05/17 08:00 106 21 161/79 (106) 96 Vapotherm 35.00 15.00 I & O 11/06/17 07:00 Intake Total 1250 ml Output Total 6400 ml Balance -5150 ml Capillary Refill : Less Than 3 SecondsLess Than 3 Seconds General Appearance: WD/WN, Mild Distress HEENT: PERRL/EOMI Neck: Full Range of Motion Respiratory: Chest Non Tender, Crackles, Decreased Breath Sounds Cardiovascular: Regular Rate, Rhythm Gastrointestinal: normal bowel sounds, non tender, soft, no organomegaly, no pulsatile mass Extremity: Pedal Edema Neurologic/Psychiatric: Alert, Oriented x3 Lymphatic: No Adenopathy Results Lab Laboratory Tests 11/05/17 11:58: Glucometer 225H 11/05/17 17:45: Glucometer 157H 11/05/17 21:50: Blood Gas Puncture Site RT RAD, Blood Gas Patient Temperature 99.4, Arterial Blood pH 7.39, Arterial Blood Partial Pressure CO2 51H, Arterial Blood Partial Pressure O2 50L, Arterial Blood HCO3 30H, Arterial Blood Total CO2 31.9H, Arterial Blood Oxygen Saturation 83L, Arterial Blood Base Excess 5.7H, Barrington Test YES-POS, Blood Gas Ventilator Setting NO, Blood Gas Inspired Oxygen 2L 11/05/17 22:15: White Blood Count 14.5H, Red Blood Count 3.78L, Hemoglobin 9.6L, Hematocrit 32L , Mean Corpuscular Volume 84, Mean Corpuscular Hemoglobin 25, Mean Corpuscular Hemoglobin Concent 30L, Red Cell Distribution Width 16.9H, Platelet Count 263, Mean Platelet Volume 10.4, Neutrophils (%) (Auto) 94H, Lymphocytes (%) (Auto) 3L , Monocytes (%) (Auto) 3, Eosinophils (%) (Auto) 0, Basophils (%) (Auto) 0, Neutrophils # (Auto) 13.7H, Lymphocytes # (Auto) 0.4L, Monocytes # (Auto) 0.4, Eosinophils # (Auto) 0.0, Basophils # (Auto) 0.0, Neutrophils % (Manual) 94, Lymphocytes % (Manual) 3, Monocytes % (Manual) 3, Eosinophils % (Manual) 0, Basophils % (Manual) 0, Band Neutrophils 0, Blood Morphology Comment NORMAL, Sodium Level 141, Potassium Level 4.0, Chloride Level 103, Carbon Dioxide Level 28, Anion Gap 10, Blood Urea Nitrogen 22H, Creatinine 0.65, Estimat Glomerular Filtration Rate > 60, BUN/Creatinine Ratio 34, Glucose Level 220H, Lactic Acid Level 0.58, Calcium Level 9.4, Magnesium Level 1.6L, Total Bilirubin 0.4, Direct Bilirubin 0.2, Indirect Bilirubin 0.2, Aspartate Amino Transf (AST/SGOT) 18, Alanine Aminotransferase (ALT/SGPT) 27, Alkaline Phosphatase 54, Total Protein 5.8L, Albumin 3.4 11/06/17 03:15: White Blood Count 12.9H, Red Blood Count 3.82L, Hemoglobin 9.7L, Hematocrit 32L , Mean Corpuscular Volume 84, Mean Corpuscular Hemoglobin 25, Mean Corpuscular Hemoglobin Concent 30L, Red Cell Distribution Width 17.0H, Platelet Count 256, Mean Platelet Volume 10.5H, Neutrophils (%) (Auto) 89H, Lymphocytes (%) (Auto) 5L, Monocytes (%) (Auto) 5, Eosinophils (%) (Auto) 0, Basophils (%) (Auto) 0, Neutrophils # (Auto) 11.6H, Lymphocytes # (Auto) 0.7L, Monocytes # (Auto) 0.7, Eosinophils # (Auto) 0.0, Basophils # (Auto) 0.0, Sodium Level 142, Potassium Level 4.1, Chloride Level 103, Carbon Dioxide Level 30, Anion Gap 9, Blood Urea Nitrogen 22H, Creatinine 0.63, Estimat Glomerular Filtration Rate > 60, BUN/ Creatinine Ratio 35, Glucose Level 217H, Calcium Level 9.4, Phosphorus Level 4.3 , Magnesium Level 1.8 11/06/17 03:35: Blood Gas Puncture Site L RAD, Blood Gas Patient Temperature 98.3, Arterial Blood pH 7.39, Arterial Blood Partial Pressure CO2 53H, Arterial Blood Partial Pressure O2 71L, Arterial Blood HCO3 31H, Arterial Blood Total CO2 33.1H, Arterial Blood Oxygen Saturation 95, Arterial Blood Base Excess 6.5H, Barrington Test YES-POS, Blood Gas Ventilator Setting NO, Blood Gas Inspired Oxygen 35% FIO2 Microbiology 10/30/17 Blood Culture - Final, Complete No growth 11/01/17 Gram Stain - Final, Complete 11/01/17 Sputum Culture - Final, Complete Usual/normal fang isolated. 10/30/17 Urine Culture - Final, Complete Nonenterococcus (Chains Cocci) Assessment/Plan Assessment/Plan Assess & Plan/Chief Complaint RIGHT ANKLE FRACTURE - POD #3 ACUTE ON CHRONIC RESPIRATORY FAILURE COPD - ACUTE EXACERBATION WITH RESP FAILURE ABOVE OBESITY SLEEP APNEA URINARY TRACT INFECTION DIABETES MELLITUS ANEMIA UNCONTROLLED HYPERTENSION RIGHT ANKLE FRACTURE - POD #3 ACUTE ON CHRONIC RESPIRATORY FAILURE -PT EXTUBATED ON 318 - PT ON BIPAP LAST NIGHT - TRANSITION TO VAPOTHERM THIS MORNING COPD - ACUTE EXACERBATION WITH RESP FAILURE ABOVE OBESITY SLEEP APNEA -- WILL NEED PRESSURE SUPPORT AT NIGHT URINARY TRACT INFECTION - ON ANTIBIOTICS DIABETES MELLITUS- PT ON LEVEMIR FROM HOME DOSE - CONTINUE TO HOLD METFORMIN AND GLIMEPIRIDE - MONITOR DIET AND FSBS ANEMIA WITH HX OF UPPER GI BLEED - HGB STABLE - MONITOR H AND H - TRANSFUSED 3 UNCONTROLLED HYPERTENSION - MULTIFACTORIAL - PT ON DRIP - RESUMED HOME MEDICATIONS, MONITOR PRESSURE RESPONSE PAIN FROM FX - PT ON PRN MORPHINE PUSH - 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
[2017-11-06] MEDS: GABAPENTIN 300 MG (NEURONTIN) CAP PO SCH ×2 (08:45→20:04)
[2017-11-06] MEDS: amLODIPine 10 MG (NORVASC) TAB PO SCH (08:45)
[2017-11-06] MEDS: PRAMIPEXOLE 0.5 MG TAB (MIRAPEX) PO SCH (08:45)
[2017-11-06] MEDS: HYDROCHLOROTHIAZIDE 25 MG (HCTZ) TAB PO SCH (08:45)
[2017-11-06] MEDS: MULTIVIT W/MINERALS TAB (THERAGRAN M) PO SCH (08:45)
[2017-11-06] MEDS: risperiDONE 1 MG (RisperDAL) TAB PO SCH ×2 (08:45→20:04)
[2017-11-06] MEDS: meTOprolol TARTRATE 50 MG (LOPRESSOR) TAB PO SCH ×2 (08:45→20:04)
[2017-11-06] MEDS: PANTOPRAZOLE 40 MG/10 ML (PROTONIX) VIAL IV SCH ×2 (08:46→20:04)
[2017-11-06] MEDS: SENNA W/DOCUSATE (SENOKOT S) TABLET PO SCH (08:46)
[2017-11-06] MEDS: morphine INJ 4 MG/ML 1 ML (VIAL/SYRINGE) IVP PRN ×3 (08:46→19:20)
[2017-11-06] MEDS: ENOXAPARIN 40 MG/0.4 ML (LOVENOX) SYR SC SCH (08:46)
[2017-11-06] MEDS: UMECLIDINIUM BROMIDE (INCRUSE ELLIPTA) 7'S IH SCH (10:39)
[2017-11-06] MEDS: NS IV 1000 ML 1,000 ML IV SCH (11:18)
[2017-11-06] MEDS: inSUlin DETERMIR 1 UNIT/0.01 ML (LEVEMIR) CHARGE PER UNIT SQ SCH (11:21)
--- NOTE | 2017-11-06 12:50 | Physical Therapy Evaluation ---
PT Evaluation-General Medical Diagnosis Admission Date Oct 30, 2017 at 15:09 Medical Diagnosis: right ankle fracture/dislocation Onset Date: Oct 30, 2017 Therapy Diagnosis Therapy Diagnosis: severe weakness/debility Height/Weight Height (Feet): 5 Height (Inches): 9.00 Weight (Pounds): 235 Weight (Ounces): 1.6 Precautions Precautions/Isolations: Fall Prevention, Standard Precautions Weight Bear Status Right Lower Extremity: Right Non Weight Bearing Left Lower Extremity: Left Full Weight Bearing external fixator right lower LE Referral Physician: Christie Reason for Referral: Evaluation/Treatment Medical History Pertinent Medical History: Arthritis, COPD, DM, Heart Failure, HTN, Neuropathy , Smoking Current History EMS secondary to fall at home resulting in right ankle fracture/dislocation and respiratory failure/distress Reviewed History: Yes Social History Home: Single Level Current Living Status: Spouse Prior/Core FIM Prior Level of Function Functional [place] Measure 0=Not Assessed/NA 4=Minimal Assistance 1=Total Assistance 5=Supervision or Setup 2=Maximal Assistance 6=Modified [place] 3=Moderate Assistance 7=Complete [place] Bed Mobility: 6 Transfers (B,C,W/C) (FIM): 6 Gait: 6 PT Evaluation-Current Subjective Patient is very lethargic. Agrees to PT. Pain Numeric Pain Scale: 5-Moderate Pain Location: Right Location Body Site: Ankle Pain Description: Acute Objective Patient Orientation: Eyes Open, Listless Problem Solving: Poor Attachments: Oxygen, Wagner Catheter, IV ROM/Strength ROM Lower Extremities right LE external fixator lower leg left LE WNL Strength Lower Extremities right LE NT left LE 1/5 grossly all planes Integumentary/Posture Integumentary refer to nursing notes Bladder Incontinence: Wagner Cath Posture NT Neuromuscular (Tone, Coordination, Reflexes) severely diminished/patient has been on ventilator and is not on vapotherm Sensory Vision: Unable to Assess Hearing: Functional Sensation Right Lower Extremit: Impaired Sensation Left Lower Extremity: Impaired Transfers Functional [place] Measure 0=Not Assessed/NA 4=Minimal Assistance 1=Total Assistance 5=Supervision or Setup 2=Maximal Assistance 6=Modified [place] 3=Moderate Assistance 7=Complete [place] Transfers (B, C, W/C) (FIM): 1 Scootin Rollin Supine to/from Sit: 1 use of camelia lift for all mobility Gait Anticipated Mode of Locomotion: Wheelchair Assessment/Needs 66 y.o. female, is currently dependent assist with all functional mobility and will benefit from skilled PT to address functional strength and mobility to improve current LOF. Rehab Potential: Guarded PT Shelter Goals Associate Curator Goals PT Shelter Goals Time Frame: Dec 05, 2017 Transfers (B,C,W/C) (FIM): 3 PT Plan Problem List Problem List: Activity Tolerance, Functional Strength, Safety, Balance, Gait, Transfer, Bed Mobility, ROM Treatment/Plan Treatment Plan: Continue Plan of Care Treatment Plan: Bed Mobility, Education, Functional Activity Lio, Functional Strength, Safety, Therapeutic Exercise, Transfers Treatment Duration: Dec 05, 2017 Frequency: 5 times per week Estimated Hrs Per Day: .25 hour per day Patient and/or Family Agrees t: Yes Discharge Recommendations Therapy D/C Recommendations: Jail Placement, Residential (TCU/NH) Time/GCodes Time In: 1145 Time Out: 1200 Total Billed Treatment Time: 15 Total Billed Treatment 1 visit EVModC 15 min LAURA SALINAS PT Nov 06, 2017 12:50
[2017-11-06] MEDS: hydrALAZINE (APESOLINE) 20 MG/ML VIAL IV PRN ×2 (13:23→18:47)
--- NOTE | 2017-11-06 14:22 | Occupational Therapy Eval ---
OT Evaluation-General/PLF Medical Diagnosis Admission Date Oct 30, 2017 at 15:09 Medical Diagnosis: right ankle fracture/dislocation Onset Date: Oct 30, 2017 Therapy Diagnosis Therapy Diagnosis: weakness, Decreased ADL skills Height/Weight Height (Feet): 5 Height (Inches): 9.00 Weight (Pounds): 235 Weight (Ounces): 1.6 Precautions Precautions/Isolations: Fall Prevention, Standard Precautions Safety Interventions: Notify Family, Reorient-Attempt, Reorient-PRN Weight Bear Status Weight Bearing Restriction: Non Weight Bearing Location Restriction: L LE Referral Physician: Christie Referral Reason: Activity Tolerance, Self Care, Evaluation/Treatment, Strengthening/ROM Medical History Pertinent Medical History: Arthritis, COPD, DM, Heart Failure, HTN, Neuropathy , Smoking Additional Medical History UTI, HTN, Resp failure Current History Pt. broke ankle. Has been on vent. Sustained surgery for ankle. Has external fixator. Weened off vent. Reviewed History: Yes Social History Home: Single Level Current Living Status: Spouse Pt. is not able to fully answer questions regarding her history. ADL-Prior Level of Function ADL PLOF Comments Pt. states that she has a walker that she uses, "sometimes." States that seven people live with her but does not state who everyone is. Does report that her spouse lives with her, and that she was independent with daily tasks. Drive Self: No OT Current Status Subjective Pt. does not state a pain level, but does report being hungry. Appearance Pt. in bed. Agrees to work with OT. Mental Status/Objective Patient Orientation: Unable to Assess Attachments: Wagner Catheter, IV, Oxygen, Telemetry Current Glasses/Contacts: Yes Hand Dominance: Right Upper Extremity ROM pt. is able to slightly move bilateral shoulders. Is able to flex elbows partially. Pt. is able to make a fist partially. This is all sporadic and OT is unable to measure hand movements. Pt. is unable to hold her cup, or bring any food to her mouth. Upper Extremity Coordination Impaired bilaterally. Edema: pt. has significant edema in bilateral hands. ADL-Treatment Functional [place] Measure 0=Not Assessed/NA 4=Minimal Assistance 1=Total Assistance 5=Supervision or Setup 2=Maximal Assistance 6=Modified [place] 3=Moderate Assistance 7=Complete IndependenceIRFPAI Quality Coding Scale 6 Independent with activity with or without an assistive device 5 Patient requires set up or clean up by helper. Patient completes activity by themselves 4 Supervision or touching assist (CGA). Blevins provide cues , steadying assist 3 The helper provides less than half the effort to complete the activity 2 The helper provides more than half the effort to complete the activity 1 Dependent. The helper does all the effort to complete an activity 7 Patient refused to complete or attempt activity 9 The patient did not perform the activity before the current illness or injury 88 Not attempted due to Medical conditions or safety concerns Eating (FIM): 2 Grooming (FIM): 1 (OT brushed pt's hair and washed her face. Pt. unable to bring hand to face.) Lower Body Dressing (FIM): 1 (OT donned left sock.) Toileting (FIM): 1 (Pt. has catheter and is unable to cleanse self with BM.) Transfers (B, C, W/C) (FIM): 1 (Max x 2 supine-sit. Once sitting on side of bed, pt. able to sit there approximately 30 minutes with minimal support. Requested to get into chair. Pt. was layed back down with dependent assist x 2 and sling placed. Utilized camelia lift to get pt. into chair. All lines and right LE fixator was managed by nursing while getting pt up to chair. All needs met.) Education OT Patient Education: Correct positioning, Modified ADL techniques, Progress toward Goal/Update tx plan, Purpose of tx/functional activities, Reviewed precautions, Rehab process, Transfer techniques, Use of adapted equipment Teaching Recipient: Patient Teaching Methods: Demonstration, Discussion Response to Teaching: Verbalize Understanding, Return Demonstration OT Short Term Goals Short Term Goals Time Frame: Nov 20, 2017 Eating(FIM): 3 Grooming(FIM): 3 Bathing(FIM): 3 Upper Body Dressing(FIM): 4 Lower Body Dressing(FIM): 3 Toileting(FIM): 3 Transfers (B,C,W/C) (FIM): 3 Toilet/Commode Transfer(FIM): 3 Additional Short Term Goals: 1-Demonstrate ADL Tasks, 2-Verbalize Understanding , 3-ImproveStrength/Lio 1=Demonstrate adherence to instructed precautions during ADL tasks. 2=Patient will verbalize/demonstrate understanding of assistive devices/ modifications for ADL. 3=Patient will improve strength/tolerance for activity to enable patient to perform ADL's. OT Assisted Goals Assisted Goals Time Frame: Dec 04, 2017 Eating (FIM): 5 Grooming(FIM): 5 Bathing(FIM): 4 Upper Body Dressing(FIM): 5 Lower Body Dressing(FIM): 5 Toileting(FIM): 5 Transfers (B,C,W/C) (FIM): 5 Toilet/Commode Transfer(FIM): 5 Shower Transfer(FIM): 4 Additional Goals: 1-Demonstrate ADL Tasks, 2-Verbalize Understanding, 3- ImproveStrength/Lio 1=Demonstrate adherence to instructed precautions during ADL tasks. 2=Patient will verbalize/demonstrate understanding of assistive devices/ modifications for ADL. 3=Patient will improve strength/tolerance for activity to enable patient to perform ADL's. OT Education/Plan Problem List/Assessment Assessment: Decreased Activ Tolerance, Decreased UE Strength, Dependent Transfers, Impaired Bed Mobility, Impaired Coordination, Impaired Funct Balance , Impaired I ADL's, Impaired Self-Care Skills, Restricted Funct UE ROM Discharge Recommendations Plan/Recommendations: Continue POC Therapy D/C Recommendations: 24 hr Supervision Comment Discharge needs and equipment needs to be determined. Treatment Plan/Plan of Care Treatment,Training & Education: Yes Patient would benefit from OT for education, treatment and training to promote independence in ADL's, mobility, safety and/or upper extremity function for ADL' s. Plan of Care: ADL Retraining, Functional Mobility Treatment Duration: Dec 04, 2017 Frequency: 5 times per week Estimated Hrs Per Day: .5 hour per day Agreement: Yes Rehab Potential: Guarded Time/GCodes Start Time: 08:50 Stop Time: 09:50 Total Time Billed (hr/min): 60 Billed Treatment Time 1, EVH x 15minutes, ADL x 45minutes AURORA SILVEIRA OT Nov 06, 2017 14:22
[2017-11-06] MEDS: FLUTICASONE NASAL SPRAY (FLONASE) 16 GM BTL NS SCH (16:09)
[2017-11-06] MEDS: HYDROcodone/APAP 5 MG/325 MG (LORTAB) TAB PO PRN (17:10)
[2017-11-06] MEDS: ATORVASTATIN 10 MG (LIPITOR) TABLET PO SCH (20:04)
[2017-11-06] MEDS: KCL 10 MEQ TAB (MICRO K) PO SCH (20:04)
[2017-11-06] MEDS: HALOPERIDOL 5 MG/ML (HALDOL) AMP IV PRN (20:04)
[2017-11-06] MEDS: SERTRALINE 50 MG (ZOLOFT) TABLET PO SCH (20:05)
[2017-11-07] VITALS (17 sets, daily range): BP systolic 107–175; BP diastolic 59–85
[2017-11-07] MEDS: RT-ALBUTEROL/IPRATROPIUM 3 ML (DUONEB) VIAL INH SCH ×6 (01:29→22:07)
[2017-11-07] MEDS: NS IV 1000 ML 1,000 ML IV SCH (01:45)
[2017-11-07 02:17] LABS: ABG BASE EXCESS 9.5 MMOL/L (-2.5-2.5); ABG OXYGEN SATURATION 97 % (94-100); ABG PCO2 51 MMHG (35-45); ABG PH 7.44 (7.37-7.43); ABG PO2 76 MMHG (79-93); ABG TCO2 35.7 MMOL/L (21.0-31.0)
[2017-11-07] MEDS: morphine INJ 4 MG/ML 1 ML (VIAL/SYRINGE) IVP PRN ×3 (02:18→13:39)
[2017-11-07 02:20] LABS: ALLENS TEST YES-POS; INSPIRED O2 35% BIPAP
[2017-11-07 02:21] LABS: VENTILATOR NO
[2017-11-07 02:29] LABS: BASOPHILS % (AUTO) 0 % (0-10); EOSINOPHILS # (AUTO) 0.2 10^3/uL (0.0-0.3); EOSINOPHILS % (AUTO) 2 % (0-10); HEMATOCRIT 32 % (35-52); HEMOGLOBIN 9.7 G/DL (11.5-16.0); LYMPHOCYTES % (AUTO) 10 % (12-44); MEAN CORPUSCULAR HEMOGLOBIN 25 PG (25-34); MEAN CORPUSCULAR HGB CONC 30 G/DL (32-36); MEAN CORPUSCULAR VOLUME 83 FL (80-99); MEAN PLATELET VOLUME 11.1 FL (7.4-10.4); MONOCYTES # (AUTO) 0.7 X 10^3 (0.0-1.0); MONOCYTES % (AUTO) 7 % (0-12); NEUTROPHILS % (AUTO) 81 % (42-75); PLATELET COUNT 243 10^3/uL (130-400); RED BLOOD COUNT 3.87 10^6/uL (4.35-5.85); RED CELL DISTRIBUTION WIDTH 16.4 % (10.0-14.5); WHITE BLOOD COUNT 9.9 10^3/uL (4.3-11.0)
[2017-11-07 02:55] LABS: BUN/CREATININE RATIO 30; CALCIUM 9.2 MG/DL (8.5-10.1); CARBON DIOXIDE 34 MMOL/L (21-32); CHLORIDE 99 MMOL/L (98-107); CREATININE SERUM 0.57 MG/DL (0.60-1.30); GFR ESTIMATED > 60; GLUCOSE 147 MG/DL (70-105); MAGNESIUM 1.6 MG/DL (1.8-2.4); PHOSPHORUS 3.4 MG/DL (2.3-4.7); POTASSIUM 3.5 MMOL/L (3.6-5.0); SODIUM 141 MMOL/L (135-145)
--- NOTE | 2017-11-07 02:59 | Pulmonary Progress Note ---
Subjective Time Seen by Provider: 03:05 Subjective/Events-last exam Pt is sleeping on BiPAP currently. Focused Exam Evaluation Lactate Level Laboratory Tests 11/05/17 22:15: Lactic Acid Level 0.58 Exam Exam Vital Signs Date Time Temp Pulse Resp B/P (MAP) Pulse Ox O2 Delivery O2 Flow Rate FiO2 11/07/17 02:00 86 21 152/67 (95) 100 NIV Bilevel 35.00 11/07/17 01:49 71 15 97 NIV Bilevel 35.00 11/07/17 01:30 71 19 96 NIV Bilevel 45.00 11/07/17 01:29 74 26 99 45.00 11/07/17 01:00 88 13 136/70 (92) 89 NIV Bilevel 25.00 11/07/17 01:00 88 11/07/17 00:00 Nasal Cannula 2.00 11/07/17 00:00 97.9 11/07/17 00:00 78 21 145/74 (97) 95 NIV Bilevel 25.00 11/06/17 23:00 75 21 152/80 (104) 92 NIV Bilevel 25.00 11/06/17 22:00 76 19 125/73 (90) 94 NIV Bilevel 25.00 11/06/17 21:35 78 19 141/73 (95) 97 NIV Bilevel 25.00 11/06/17 21:00 81 18 151/78 (102) 96 Nasal Cannula 2.00 11/06/17 20:00 Nasal Cannula 2.00 11/06/17 20:00 112 19 153/65 (94) 96 Nasal Cannula 2.00 11/06/17 20:00 98.7 Nasal Cannula 2.00 11/06/17 19:00 98 20 146/79 (101) 95 Nasal Cannula 2.00 11/06/17 19:00 98 11/06/17 18:29 Nasal Cannula 1.50 11/06/17 18:29 93 Nasal Cannula 1.50 11/06/17 18:00 100 24 163/88 (113) 94 Nasal Cannula 2.00 11/06/17 17:00 96 16 168/90 (116) 93 Nasal Cannula 2.00 11/06/17 16:00 100 24 173/82 (112) 94 Nasal Cannula 2.00 11/06/17 16:00 97.2 11/06/17 16:00 Nasal Cannula 2.00 11/06/17 15:00 96 11 203/83 (123) 94 Nasal Cannula 2.00 11/06/17 14:00 97 23 164/78 (106) 95 Nasal Cannula 2.00 11/06/17 13:11 91 Nasal Cannula 2.00 11/06/17 13:00 87 29 158/76 (103) 95 Nasal Cannula 2.00 11/06/17 13:00 89 11/06/17 12:15 98.0 11/06/17 12:00 80 27 175/94 (121) 97 Nasal Cannula 2.00 11/06/17 12:00 Nasal Cannula 2.00 11/06/17 11:00 73 20 135/60 (85) 97 NIV Bilevel 35.00 11/06/17 10:42 Nasal Cannula 2.00 11/06/17 10:40 92 Nasal Cannula 2.00 11/06/17 10:00 71 19 139/68 (91) 95 NIV Bilevel 35.00 11/06/17 09:00 94 16 157/92 (113) 99 NIV Bilevel 35.00 11/06/17 08:00 Nasal Cannula 2.00 11/06/17 08:00 97.7 94 15 170/75 (106) 97 Nasal Cannula 2.00 11/06/17 07:33 93 17 95 25.00 11/06/17 07:00 78 17 177/90 (119) 95 NIV Bilevel 35.00 11/06/17 07:00 81 11/06/17 06:00 88 14 132/77 (95) 97 NIV Bilevel 35.00 11/06/17 05:00 92 17 158/76 (103) 95 NIV Bilevel 35.00 11/06/17 04:00 98.3 11/06/17 04:00 88 18 147/75 (99) 94 NIV Bilevel 35.00 11/06/17 04:00 NIV Bilevel 35 11/06/17 03:35 92 15 97 35.00 11/06/17 03:00 98 17 148/78 (101) 93 NIV Bilevel 35.00 I & O 11/07/17 07:00 Intake Total 1060 ml Output Total 2675 ml Balance -1615 ml General Appearance: WD/WN, Mild Distress, Other (PT ON BIPAP) HEENT: Normal ENT Inspection Neck: Supple Respiratory: Crackles, Decreased Breath Sounds Cardiovascular: Regular Rate, Rhythm Capillary Refill: Less Than 3 Seconds Peripheral Pulses: 2+ Dorsalis Pedis (R), 2+ Left Dors-Pedis (L) Gastrointestinal: normal bowel sounds, non tender, soft Extremity: Other (UPPER AND LOWER EXTREMITY EDEMA - EXTERNAL FIXATOR ON RIGHT LOWER LEG/ANKLE - GOOD PERFUSION, BRUISING ON RIGHT LEG) Neurologic/Psychiatric: Other (pt is currently sleeping ) Skin: Normal Color, Warm/Dry, Pallor Lymphatic: No Adenopathy Results Lab Laboratory Tests 11/05/17 03:45 11/05/17 22:15 11/06/17 03:15 11/07/17 02:10 Assessment/Plan Assessment/Plan Acute ankle fracture -Pain Control Acute on chronic respiratory failure COPDAE-- pt is on 3 liters of oxygen at home -SVNs Q 4 HTN urgency -Cardene gtt-pt is now off - lopressor, and HCTZ Anemia with gastric occult positive -PT has been on protonix BID since the weekend -Monitor MICHAEL with obesity Acute UTI -Cont Zosyn 233 Critical Care: Critically Ill Patient MK RAMOS DO Nov 07, 2017 02:59
[2017-11-07] MEDS: POTASSIUM CL 10MEQ/50ML IVPB 50 ML IV SCH ×3 (04:56→05:07)
[2017-11-07] MEDS: MAGNESIUM 1 GM/100 ML IVPB 100 ML IV SCH ×3 (04:56→05:07)
[2017-11-07] MEDS: DEXMEDETOMIDINE IV SCH ×2 (05:07)
[2017-11-07] MEDS: NS IV SCH ×2 (05:07)
[2017-11-07] MEDS: KCL 20 MEQ TAB (K-DUR) PO SCH (05:07)
[2017-11-07] MEDS: inSUlin ASPART (NovoLOG) 1 UNIT/0.01 ML (CHARGE PER UNIT) SC SCH ×4 (05:08→21:28)
[2017-11-07] MEDS: RT-ADVAIR HFA 115/21 MCG PER PUFF IH SCH ×2 (06:37→18:52)
[2017-11-07] MEDS: hydrALAZINE (APESOLINE) 20 MG/ML VIAL IV PRN (06:47)
--- NOTE | 2017-11-07 07:55 | Diagnostic Imaging Report ---
INDICATION: Dyspnea Frontal chest obtained at 0150 a.m. and compared to 11/06/17. There is cardiomegaly. There is central vascular prominence which is unchanged. There is no pneumothorax or gross pleural fluid. There is some mild bibasilar atelectatic change versus infiltrate. IMPRESSION: Cardiomegaly and central vascular prominence. Mild bibasilar atelectatic change versus infiltrate appearing similar to the prior study. There is no new abnormality. Dictated by: Dictated on workstation # [id number]
[2017-11-07] MEDS: meTOprolol TARTRATE 50 MG (LOPRESSOR) TAB PO SCH ×2 (08:44→21:28)
[2017-11-07] MEDS: FLUTICASONE NASAL SPRAY (FLONASE) 16 GM BTL NS SCH (08:44)
[2017-11-07] MEDS: MULTIVIT W/MINERALS TAB (THERAGRAN M) PO SCH (08:44)
[2017-11-07] MEDS: PANTOPRAZOLE 40 MG/10 ML (PROTONIX) VIAL IV SCH ×2 (08:44→21:28)
[2017-11-07] MEDS: ENOXAPARIN 40 MG/0.4 ML (LOVENOX) SYR SC SCH (08:44)
[2017-11-07] MEDS: GABAPENTIN 300 MG (NEURONTIN) CAP PO SCH ×2 (08:45→21:29)
[2017-11-07] MEDS: SENNA W/DOCUSATE (SENOKOT S) TABLET PO SCH (08:45)
[2017-11-07] MEDS: amLODIPine 10 MG (NORVASC) TAB PO SCH (08:45)
[2017-11-07] MEDS: PRAMIPEXOLE 0.5 MG TAB (MIRAPEX) PO SCH (08:45)
[2017-11-07] MEDS: risperiDONE 1 MG (RisperDAL) TAB PO SCH ×2 (08:45→21:28)
[2017-11-07] MEDS: HYDROCHLOROTHIAZIDE 25 MG (HCTZ) TAB PO SCH (08:45)
[2017-11-07] MEDS: HYDROcodone/APAP 5 MG/325 MG (LORTAB) TAB PO PRN (08:53)
--- NOTE | 2017-11-07 08:59 | Progress Note (SOAP) ---
Subjective Date Seen by Provider: Nov 07, 2017 Time Seen by Provider: 08:59 Subjective/Events-last exam PT REPORTS THAT SHE IS FEELING MUCH IMPROVED TODAY - SHE IS OFF OF BIPAP, SHE REPORTS THAT SHE IS FEELING READY TO GO DOWN TO 4TH FLOOR TODAY. SHE DENIES CHEST PAIN, ABDOMINAL PAIN, NAUSEA. Review of Systems General: No Chills, Fatigue HEENT: No Head Aches Pulmonary: No Dyspnea, No Cough Cardiovascular: No: Chest Pain Gastrointestinal: No: Nausea, Abdominal Pain Genitourinary: No Dysuria Neurological: Weakness Focused Exam Evaluation Lactate Level Laboratory Tests 11/05/17 22:15: Lactic Acid Level 0.58 Objective Exam Vital Signs Date Time Temp Pulse Resp B/P (MAP) Pulse Ox O2 Delivery O2 Flow Rate FiO2 11/07/17 08:00 112 28 158/80 (106) 96 NIV Bilevel 35.00 11/07/17 07:30 Nasal Cannula 2.00 11/07/17 07:00 110 31 167/81 (109) 95 NIV Bilevel 35.00 11/07/17 07:00 108 11/07/17 06:40 95 Nasal Cannula 2.00 11/07/17 06:37 95 Nasal Cannula 2.00 11/07/17 06:00 82 22 175/82 (113) 94 NIV Bilevel 35.00 11/07/17 05:00 85 21 147/85 (105) 100 NIV Bilevel 35.00 11/07/17 04:07 82 25 98 35.00 11/07/17 04:00 78 14 153/77 (102) 100 NIV Bilevel 35.00 11/07/17 04:00 98.3 11/07/17 04:00 Nasal Cannula 2.00 11/07/17 03:00 81 18 154/77 (102) 98 NIV Bilevel 35.00 11/07/17 02:00 86 21 152/67 (95) 100 NIV Bilevel 35.00 11/07/17 01:49 71 15 97 NIV Bilevel 35.00 11/07/17 01:30 71 19 96 NIV Bilevel 45.00 11/07/17 01:29 74 26 99 45.00 11/07/17 01:00 88 13 136/70 (92) 89 NIV Bilevel 25.00 11/07/17 01:00 88 11/07/17 00:15 73 21 96 25.00 11/07/17 00:00 Nasal Cannula 2.00 11/07/17 00:00 97.9 11/07/17 00:00 78 21 145/74 (97) 95 NIV Bilevel 25.00 11/06/17 23:00 75 21 152/80 (104) 92 NIV Bilevel 25.00 11/06/17 22:00 76 19 125/73 (90) 94 NIV Bilevel 25.00 11/06/17 21:35 78 19 141/73 (95) 97 NIV Bilevel 25.00 11/06/17 21:32 77 19 98 25.00 11/06/17 21:00 81 18 151/78 (102) 96 Nasal Cannula 2.00 11/06/17 20:00 Nasal Cannula 2.00 11/06/17 20:00 112 19 153/65 (94) 96 Nasal Cannula 2.00 11/06/17 20:00 98.7 Nasal Cannula 2.00 11/06/17 19:00 98 20 146/79 (101) 95 Nasal Cannula 2.00 11/06/17 19:00 98 11/06/17 18:29 Nasal Cannula 1.50 11/06/17 18:29 93 Nasal Cannula 1.50 11/06/17 18:00 100 24 163/88 (113) 94 Nasal Cannula 2.00 11/06/17 17:00 96 16 168/90 (116) 93 Nasal Cannula 2.00 11/06/17 16:00 100 24 173/82 (112) 94 Nasal Cannula 2.00 11/06/17 16:00 97.2 11/06/17 16:00 Nasal Cannula 2.00 11/06/17 15:00 96 11 203/83 (123) 94 Nasal Cannula 2.00 11/06/17 14:00 97 23 164/78 (106) 95 Nasal Cannula 2.00 11/06/17 13:11 91 Nasal Cannula 2.00 11/06/17 13:00 87 29 158/76 (103) 95 Nasal Cannula 2.00 11/06/17 13:00 89 11/06/17 12:15 98.0 11/06/17 12:00 80 27 175/94 (121) 97 Nasal Cannula 2.00 11/06/17 12:00 Nasal Cannula 2.00 11/06/17 11:00 73 20 135/60 (85) 97 NIV Bilevel 35.00 11/06/17 10:42 Nasal Cannula 2.00 11/06/17 10:40 92 Nasal Cannula 2.00 11/06/17 10:00 71 19 139/68 (91) 95 NIV Bilevel 35.00 11/06/17 09:00 94 16 157/92 (113) 99 NIV Bilevel 35.00 I & O 11/07/17 07:00 Intake Total 1060 ml Output Total 3175 ml Balance -2115 ml Capillary Refill : Less Than 3 SecondsLess Than 3 Seconds General Appearance: No Apparent Distress, WD/WN HEENT: PERRL/EOMI Neck: Full Range of Motion, Supple Respiratory: Chest Non Tender, Decreased Breath Sounds (IN BASES) Cardiovascular: Regular Rate, Rhythm Gastrointestinal: normal bowel sounds, non tender, soft Extremity: Other (EXTERNAL FIXATOR RIGHT LOWER LEG/ANKLE/FOOT) Neurologic/Psychiatric: Alert, Oriented x3, Normal Mood/Affect Skin: Warm/Dry Results Lab Laboratory Tests 11/06/17 09:32: Lab Scanned Report Transfusion Reaction Form 11/06/17 11:15: Glucometer 195H 11/06/17 18:22: Glucometer 194H 11/07/17 02:10: White Blood Count 9.9, Red Blood Count 3.87L, Hemoglobin 9.7L, Hematocrit 32L, Mean Corpuscular Volume 83, Mean Corpuscular Hemoglobin 25, Mean Corpuscular Hemoglobin Concent 30L, Red Cell Distribution Width 16.4H, Platelet Count 243, Mean Platelet Volume 11.1H, Neutrophils (%) (Auto) 81H, Lymphocytes (%) (Auto) 10L, Monocytes (%) (Auto) 7, Eosinophils (%) (Auto) 2, Basophils (%) (Auto) 0, Neutrophils # (Auto) 8.0H, Lymphocytes # (Auto) 1.0, Monocytes # (Auto) 0.7, Eosinophils # (Auto) 0.2, Basophils # (Auto) 0.0, Blood Gas Puncture Site R RAD , Blood Gas Patient Temperature 98.0, Arterial Blood pH 7.44H, Arterial Blood Partial Pressure CO2 51H, Arterial Blood Partial Pressure O2 76L, Arterial Blood HCO3 34H, Arterial Blood Total CO2 35.7H, Arterial Blood Oxygen Saturation 97, Arterial Blood Base Excess 9.5H, [place] Test YES-POS, Blood Gas Ventilator Setting NO, Blood Gas Inspired Oxygen 35% BIPAP, Sodium Level 141, Potassium Level 3.5L, Chloride Level 99, Carbon Dioxide Level 34H, Anion Gap 8, Blood Urea Nitrogen 17, Creatinine 0.57L, Estimat Glomerular Filtration Rate > 60, BUN/Creatinine Ratio 30, Glucose Level 147H, Calcium Level 9.2, Phosphorus Level 3.4, Magnesium Level 1.6L Microbiology 3 Blood Culture - Final, Complete No growth 11/01/17 Gram Stain - Final, Complete 11/01/17 Sputum Culture - Final, Complete Usual/normal fang isolated. 10/30/17 Urine Culture - Final, Complete Nonenterococcus (Chains Cocci) Assessment/Plan Assessment/Plan Assess & Plan/Chief Complaint RIGHT ANKLE FRACTURE - POD #4 ACUTE ON CHRONIC RESPIRATORY FAILURE COPD - ACUTE EXACERBATION WITH RESP FAILURE ABOVE OBESITY SLEEP APNEA URINARY TRACT INFECTION DIABETES MELLITUS ANEMIA UNCONTROLLED HYPERTENSION RIGHT ANKLE FRACTURE - POD #4 ACUTE ON CHRONIC RESPIRATORY FAILURE -PT EXTUBATED ON 11/04/17 - PT ON BIPAP AT NIGHT - CONTINUE WITH THIS AND CONTINUE WITH OXYGEN PER NC. CONTINUE WITH CURRENT MANAGEMENT - TRANSFER TO 4TH FLOOR TODAY. COPD - ACUTE EXACERBATION WITH RESP FAILURE ABOVE OBESITY SLEEP APNEA -- WILL NEED PRESSURE SUPPORT AT NIGHT URINARY TRACT INFECTION - ON ANTIBIOTICS DIABETES MELLITUS- PT ON LEVEMIR FROM HOME DOSE - CONTINUE TO HOLD METFORMIN AND GLIMEPIRIDE - MONITOR DIET AND FSBS ANEMIA WITH HX OF UPPER GI BLEED - HGB STABLE - MONITOR H AND H - TRANSFUSED UNCONTROLLED HYPERTENSION - IMPROVED - CONTINUE WITH HOME MEDICATIONS, MONITOR PRESSURE RESPONSE PAIN FROM FX - PT ON PRN MORPHINE PUSH - OFF OF [facility] Clinical Quality Measures DVT/VTE Risk/Contraindication: Risk Factor Score Per Nursin RFS Level Per Nursing on Admit: 4+=Very High Contraindications-Pharm: Other *list below* Contraindications-Mechi: Other *list below* PHILIP JOSE MD Nov 07, 2017 08:59
[2017-11-07] MEDS: UMECLIDINIUM BROMIDE (INCRUSE ELLIPTA) 7'S IH SCH (10:29)
[2017-11-07] MEDS: inSUlin DETERMIR 1 UNIT/0.01 ML (LEVEMIR) CHARGE PER UNIT SQ SCH (12:45)
--- NOTE | 2017-11-07 13:47 | Physical Therapy Daily Note ---
PT Daily Note-Current Subjective Patient request return to bed. Patient is in recliner from ICU with jose gudaalupe sling under her. Pain Numeric Pain Scale: 10-Worst Possible Pain Location: Right Location Body Site: Ankle Pain Description: Acute, Sharp Mental Status Patient Orientation: Mumbles, Listless Attachments: Oxygen, Wagner Catheter Transfers Functional [place] Measure 0=Not Assessed/NA 4=Minimal Assistance 1=Total Assistance 5=Supervision or Setup 2=Maximal Assistance 6=Modified [place] 3=Moderate Assistance 7=Complete IndependenceIRFPAI Quality Coding Scale 6 Independent with activity with or without an assistive device 5 Patient requires set up or clean up by helper. Patient completes activity by themselves 4 Supervision or touching assist (CGA). [place] provide cues , steadying assist 3 The helper provides less than half the effort to complete the activity 2 The helper provides more than half the effort to complete the activity 1 Dependent. The helper does all the effort to complete an activity 7 Patient refused to complete or attempt activity 9 The patient did not perform the activity before the current illness or injury 88 Not attempted due to Medical conditions or safety concerns Transfers (B, C, W/C) (FIM): 1 Scootin Rollin Supine to/from Sit: 1 Bed to/from Chair: 1 Patient requires Jose Guadalupe lift for mobility/transfers due to extreme weakness Weight Bearing Right Lower Extremity: Right Non Weight Bearing Left Lower Extremity: Left Full Weight Bearing external fixator right lower LE Exercises Supine Ex: Ankle pumps, Heel Slides Supine Reps: 10 (PROM) Assessment Patient repositioned to sidelying left with pillows under right LE and behind back. Patient will require extended time and care for complete recovery. PT Short Term Goals Short Term Goals Transfers (B,C,W/C) (FIM): 3 PT Applications Packager Goals Applications Packager Goals PT Prison Goals Time Frame: Dec 05, 2017 Transfers (B,C,W/C) (FIM): 3 PT Plan Treatment/Plan Treatment Plan: Continue Plan of Care Treatment Plan: Bed Mobility, Education, Functional Activity Lio, Functional Strength, Safety, Therapeutic Exercise, Transfers Treatment Duration: Dec 05, 2017 Frequency: 5 times per week Estimated Hrs Per Day: .25 hour per day Patient and/or Family Agrees t: Yes Time/GCodes Time In: 1321 Time Out: 1337 Total Billed Treatment Time: 16 Total Billed Treatment 1 visit FA 16 min LAURA SALINAS PT Nov 07, 2017 13:47
--- NOTE | 2017-11-07 14:00 | Occ Therapy Progress Note ---
Therapy Progress Note 1350 Pt had just been put back to bed after sitting up and transferring to floor from ICU. Had also been given pain meds. Pt extremely fatigued and could not wake up for OT this afternoon. CHARLIE OLIVAS OT Nov 07, 2017 14:00
[2017-11-07] MEDS: ACETAMINOPHEN 325 MG TABLET/CAPLET (TYLENOL) PO PRN (19:38)
[2017-11-07] MEDS: SERTRALINE 50 MG (ZOLOFT) TABLET PO SCH (21:29)
[2017-11-07] MEDS: ATORVASTATIN 10 MG (LIPITOR) TABLET PO SCH (21:29)
[2017-11-07] MEDS: KCL 10 MEQ TAB (MICRO K) PO SCH (21:29)
--- NOTE | 2017-11-07 22:08 | Progress Note-Standard ---
Standard Progress Note Progress Notes/Assess & Plan Date Seen by Provider: Nov 07, 2017 Time Seen by Provider: 11:35 Progress/Assessment & Plan Pt ERIC, extubated, still rather lethargic LLE: ex-fix stable, edema decreasing, foot well perfused, all pin sites c/d/i, pt moves all digits well on command Abd soft/NT S/P closed reduction/application of external-fixator Left ankle, POD#4 Strict NWB LLE Mobilize OOB with PT/OT when able Will plan for removal of ex-fix and definitive fixation next week if medically stable. Focused Exam Evaluation Lactate Level ZEESHAN RAMACHANDRAN DO Nov 07, 2017 22:08
--- NOTE | 2017-11-07 22:19 | Progress Note-Standard ---
Standard Progress Note Progress Notes/Assess & Plan Date Seen by Provider: Nov 07, 2017 Time Seen by Provider: 11:35 Progress/Assessment & Plan Pt ERIC earlier today, much more alert and appears to be breathing well on 3L O2 NC VSSAF Labs stable LLE: ex-fix stable, mild edema and resolving ecchymosis, foot well perfused, all pin sites c/d/i, pt moves all digits well, all compartments soft/NT Abd soft/NT S/P closed reduction/application of external-fixator Left ankle for a trimalleolar fracture/dislocation POD#4 Strict NWB RLE Mobilize OOB with PT/OT daily as able Will plan for removal of ex-fix and definitive fixation next week if medically stable and cleared for OR. Focused Exam Evaluation Lactate Level Laboratory Tests 11/05/17 22:15: Lactic Acid Level 0.58 ZEESHAN RAMACHANDRAN DO Nov 07, 2017 22:19
[2017-11-08] VITALS (7 sets, daily range): BP systolic 134–170; BP diastolic 74–96
[2017-11-08] MEDS: RT-ALBUTEROL/IPRATROPIUM 3 ML (DUONEB) VIAL INH SCH ×6 (02:34→22:17)
[2017-11-08 05:01] LABS: BASOPHILS % (AUTO) 0 % (0-10); EOSINOPHILS # (AUTO) 0.1 10^3/uL (0.0-0.3); EOSINOPHILS % (AUTO) 1 % (0-10); HEMATOCRIT 31 % (35-52); HEMOGLOBIN 9.6 G/DL (11.5-16.0); LYMPHOCYTES # (AUTO) 0.9 X 10^3 (1.0-4.0); LYMPHOCYTES % (AUTO) 8 % (12-44); MEAN CORPUSCULAR HEMOGLOBIN 25 PG (25-34); MEAN CORPUSCULAR HGB CONC 31 G/DL (32-36); MEAN CORPUSCULAR VOLUME 83 FL (80-99); MEAN PLATELET VOLUME 11.7 FL (7.4-10.4); MONOCYTES # (AUTO) 0.8 X 10^3 (0.0-1.0); MONOCYTES % (AUTO) 7 % (0-12); NEUTROPHILS # (AUTO) 8.7 X 10^3 (1.8-7.8); NEUTROPHILS % (AUTO) 84 % (42-75); PLATELET COUNT 223 10^3/uL (130-400); RED BLOOD COUNT 3.79 10^6/uL (4.35-5.85); RED CELL DISTRIBUTION WIDTH 16.5 % (10.0-14.5); WHITE BLOOD COUNT 10.4 10^3/uL (4.3-11.0)
[2017-11-08 05:58] LABS: BUN/CREATININE RATIO 29; CALCIUM 9.8 MG/DL (8.5-10.1); CARBON DIOXIDE 30 MMOL/L (21-32); CHLORIDE 99 MMOL/L (98-107); CREATININE SERUM 0.63 MG/DL (0.60-1.30); GFR ESTIMATED > 60; GLUCOSE 164 MG/DL (70-105); POTASSIUM 3.6 MMOL/L (3.6-5.0); SODIUM 139 MMOL/L (135-145)
[2017-11-08] MEDS: inSUlin ASPART (NovoLOG) 1 UNIT/0.01 ML (CHARGE PER UNIT) SC SCH ×4 (06:18→20:52)
[2017-11-08] MEDS: morphine INJ 4 MG/ML 1 ML (VIAL/SYRINGE) IVP PRN (06:23)
[2017-11-08] MEDS: MULTIVIT W/MINERALS TAB (THERAGRAN M) PO SCH (06:23)
[2017-11-08] MEDS: RT-ADVAIR HFA 115/21 MCG PER PUFF IH SCH ×2 (06:36→18:42)
[2017-11-08] MEDS: UMECLIDINIUM BROMIDE (INCRUSE ELLIPTA) 7'S IH SCH (06:43)
[2017-11-08] MEDS: PANTOPRAZOLE 40 MG/10 ML (PROTONIX) VIAL IV SCH ×2 (07:59→21:05)
[2017-11-08] MEDS: FLUTICASONE NASAL SPRAY (FLONASE) 16 GM BTL NS SCH (08:00)
[2017-11-08] MEDS: meTOprolol TARTRATE 50 MG (LOPRESSOR) TAB PO SCH ×2 (08:02→21:00)
[2017-11-08] MEDS: amLODIPine 10 MG (NORVASC) TAB PO SCH (08:02)
[2017-11-08] MEDS: SENNA W/DOCUSATE (SENOKOT S) TABLET PO SCH (08:02)
[2017-11-08] MEDS: risperiDONE 1 MG (RisperDAL) TAB PO SCH ×2 (08:02→21:00)
[2017-11-08] MEDS: PRAMIPEXOLE 0.5 MG TAB (MIRAPEX) PO SCH (08:02)
[2017-11-08] MEDS: HYDROCHLOROTHIAZIDE 25 MG (HCTZ) TAB PO SCH (08:02)
[2017-11-08] MEDS: GABAPENTIN 300 MG (NEURONTIN) CAP PO SCH ×2 (08:02→21:00)
[2017-11-08] MEDS: ENOXAPARIN 40 MG/0.4 ML (LOVENOX) SYR SC SCH (08:03)
[2017-11-08] MEDS: inSUlin DETERMIR 1 UNIT/0.01 ML (LEVEMIR) CHARGE PER UNIT SQ SCH (12:19)
[2017-11-08] MEDS: HYDROcodone/APAP 5 MG/325 MG (LORTAB) TAB PO PRN ×2 (12:24→19:38)
[2017-11-08] MEDS: SERTRALINE 50 MG (ZOLOFT) TABLET PO SCH (21:00)
[2017-11-08] MEDS: KCL 10 MEQ TAB (MICRO K) PO SCH (21:00)
[2017-11-08] MEDS: ATORVASTATIN 10 MG (LIPITOR) TABLET PO SCH (21:00)
[2017-11-09] VITALS: BP 176/83
[2017-11-09] MEDS: RT-ALBUTEROL/IPRATROPIUM 3 ML (DUONEB) VIAL INH SCH ×6 (02:33→23:03)
[2017-11-09 04:00] VITALS: BP 141/88
[2017-11-09 04:58] LABS: BASOPHILS % (AUTO) 0 % (0-10); EOSINOPHILS # (AUTO) 0.1 10^3/uL (0.0-0.3); EOSINOPHILS % (AUTO) 1 % (0-10); HEMATOCRIT 29 % (35-52); HEMOGLOBIN 9.1 G/DL (11.5-16.0); LYMPHOCYTES # (AUTO) 0.9 X 10^3 (1.0-4.0); LYMPHOCYTES % (AUTO) 9 % (12-44); MEAN CORPUSCULAR HEMOGLOBIN 25 PG (25-34); MEAN CORPUSCULAR HGB CONC 32 G/DL (32-36); MEAN CORPUSCULAR VOLUME 80 FL (80-99); MEAN PLATELET VOLUME 11.1 FL (7.4-10.4); MONOCYTES # (AUTO) 0.8 X 10^3 (0.0-1.0); MONOCYTES % (AUTO) 8 % (0-12); NEUTROPHILS # (AUTO) 8.4 X 10^3 (1.8-7.8); NEUTROPHILS % (AUTO) 82 % (42-75); PLATELET COUNT 216 10^3/uL (130-400); RED BLOOD COUNT 3.59 10^6/uL (4.35-5.85); RED CELL DISTRIBUTION WIDTH 16.1 % (10.0-14.5); WHITE BLOOD COUNT 10.2 10^3/uL (4.3-11.0)
[2017-11-09 06:29] LABS: BUN/CREATININE RATIO 25; CALCIUM 9.7 MG/DL (8.5-10.1); CARBON DIOXIDE 29 MMOL/L (21-32); CHLORIDE 98 MMOL/L (98-107); CREATININE SERUM 0.56 MG/DL (0.60-1.30); GFR ESTIMATED > 60; GLUCOSE 140 MG/DL (70-105); POTASSIUM 3.6 MMOL/L (3.6-5.0); SODIUM 139 MMOL/L (135-145)
[2017-11-09] MEDS: inSUlin ASPART (NovoLOG) 1 UNIT/0.01 ML (CHARGE PER UNIT) SC SCH ×4 (06:36→21:16)
[2017-11-09] MEDS: MULTIVIT W/MINERALS TAB (THERAGRAN M) PO SCH (06:39)
[2017-11-09] MEDS: UMECLIDINIUM BROMIDE (INCRUSE ELLIPTA) 7'S IH SCH (07:45)
[2017-11-09 08:00] VITALS: BP 137/83
[2017-11-09] MEDS: ENOXAPARIN 40 MG/0.4 ML (LOVENOX) SYR SC SCH (09:52)
[2017-11-09] MEDS: SENNA W/DOCUSATE (SENOKOT S) TABLET PO SCH (09:52)
[2017-11-09] MEDS: amLODIPine 10 MG (NORVASC) TAB PO SCH (09:52)
[2017-11-09] MEDS: meTOprolol TARTRATE 50 MG (LOPRESSOR) TAB PO SCH ×2 (09:52→20:08)
[2017-11-09] MEDS: GABAPENTIN 300 MG (NEURONTIN) CAP PO SCH ×2 (09:52→20:08)
[2017-11-09] MEDS: risperiDONE 1 MG (RisperDAL) TAB PO SCH ×2 (09:52→20:08)
[2017-11-09] MEDS: HYDROCHLOROTHIAZIDE 25 MG (HCTZ) TAB PO SCH (09:53)
[2017-11-09] MEDS: PRAMIPEXOLE 0.5 MG TAB (MIRAPEX) PO SCH (09:53)
[2017-11-09] MEDS: PANTOPRAZOLE 40 MG/10 ML (PROTONIX) VIAL IV SCH ×2 (09:53→20:08)
[2017-11-09] MEDS: FLUTICASONE NASAL SPRAY (FLONASE) 16 GM BTL NS SCH (09:53)
[2017-11-09] MEDS: RT-ADVAIR HFA 115/21 MCG PER PUFF IH SCH ×2 (10:40→19:06)
[2017-11-09] MEDS: inSUlin DETERMIR 1 UNIT/0.01 ML (LEVEMIR) CHARGE PER UNIT SQ SCH (11:32)
[2017-11-09 12:00] VITALS: BP 123/62
--- NOTE | 2017-11-09 13:49 | Progress Note-Hospitalist ---
Subjective HPI/CC On Admission Date Seen by Provider: Nov 08, 2017 Time Seen by Provider: 13:30 Subjective/Events-last exam at bedside upon arrival reporting that the patient for some time is been unable to feed herself and will need a feeding aid. The patient did not appear to be in acute distress mildly sedated appearing comfortable but when asked reporting pain at the right lower extremity external fixator site only. She denies chest pain or shortness of breath at rest but does report dyspnea with minimal exertion. Objective Exam Vital Signs Vital Signs Date Time Temp Pulse Resp B/P (MAP) Pulse Ox O2 Delivery O2 Flow Rate FiO2 11/03/17 00:00 Mechanical Ventilator 30 11/03/17 00:00 98 29 148/67 (94) 94 30.00 11/03/17 01:58 100.2 Capillary Refill : Less Than 3 SecondsLess Than 3 Seconds General Appearance: No Apparent Distress, Chronically ill, Obese Respiratory: Lungs Clear, Normal Breath Sounds, No Accessory Muscle Use, No Respiratory Distress, Other (Some diminishment of breath sounds in the bases without wheezes rales or rhonchi) Cardiovascular: No Gallop, No JVD, No Murmur, Irregularly Irregular, Other ( Plus edema all extremities little more prominent on the right lower extremity surgical site THAN non-operated left.) Results/Procedures Lab Laboratory Tests 11/09/17 04:25 Patient resulted labs reviewed. Assessment/Plan Assessment and Plan Assess & Plan/Chief Complaint RIGHT ANKLE FRACTURE - POD #5 ACUTE ON CHRONIC RESPIRATORY FAILURE -PT EXTUBATED ON 11/04/17 - PT ON BIPAP AT NIGHT - CONTINUE WITH THIS AND CONTINUE WITH OXYGEN PER NC. CONTINUE WITH CURRENT MANAGEMENT - TRANSFER TO 4TH FLOOR TODAY. COPD - ACUTE EXACERBATION WITH RESP FAILURE ABOVE . To be slowly improving but due to severe deconditioning status remains tenuous OBESITY SLEEP APNEA -- WILL NEED PRESSURE SUPPORT AT NIGHT URINARY TRACT INFECTION - ON ANTIBIOTICS DIABETES MELLITUS- PT ON LEVEMIR FROM HOME DOSE - CONTINUE TO HOLD METFORMIN AND GLIMEPIRIDE - MONITOR DIET AND FSBS ANEMIA WITH HX OF UPPER GI BLEED - HGB STABLE - MONITOR H AND H - TRANSFUSED UNCONTROLLED HYPERTENSION - IMPROVED - CONTINUE WITH HOME MEDICATIONS, MONITOR PRESSURE RESPONSE PAIN FROM FX -out of proportion to physical appearance as morphine appears to be quite sedating even at low dose discussed utilizing by mouth hydrocodone first Critical Care Critical Care: Critically Ill Patient Clinical Quality Measures DVT/VTE Risk/Contraindication: Risk Factor Score Per Nursin RFS Level Per Nursing on Admit: 4+=Very High Contraindications-Pharm: Other *list below* Contraindications-Mechi: Other *list below* LIZ CEDEÑO MD Nov 09, 2017 13:48
--- NOTE | 2017-11-09 14:00 | Progress Note-Hospitalist ---
Subjective HPI/CC On Admission Date Seen by Provider: Nov 09, 2017 Time Seen by Provider: 08:45 Subjective/Events-last exam Patient sleeping soundly but arouses easily and reports pain when questioned. She appears to be in no acute distress readily falling back asleep at the end of the interview. It is been over 12 hours since her last morphine dose she has been utilizing hydrocodone instead. She is a poor historian and rather vague and answering questions. Her speech is not slurred and there is no evidence for inattention during the patient encounter. Her by mouth intake last 24 hours has improved significantly. Objective Exam Vital Signs Vital Signs Date Time Temp Pulse Resp B/P (MAP) Pulse Ox O2 Delivery O2 Flow Rate FiO2 11/03/17 00:00 Mechanical Ventilator 30 11/03/17 00:00 98 29 148/67 (94) 94 30.00 11/03/17 01:58 100.2 Capillary Refill : Less Than 3 SecondsLess Than 3 Seconds General Appearance: No Apparent Distress, Chronically ill, Obese Respiratory: No Accessory Muscle Use, No Respiratory Distress, Other (Get her bronchi noted no focal consolidative findings present. Decreased breath sounds in the bases unchanged from yesterday) Cardiovascular: Regular Rate, Rhythm, No Gallop, No JVD, No Murmur Extremity: Other (Extremity edema appears stable weight is decreasing however.) Results/Procedures Lab Laboratory Tests 11/09/17 04:25 Patient resulted labs reviewed. Assessment/Plan Assessment and Plan Assess & Plan/Chief Complaint RIGHT ANKLE FRACTURE - POD #6 ACUTE ON CHRONIC RESPIRATORY FAILURE -PT EXTUBATED ON 11/04/17 - PT ON BIPAP AT NIGHT - CONTINUE WITH THIS AND CONTINUE WITH OXYGEN PER NC. CONTINUE WITH CURRENT MANAGEMENT - TRANSFER TO 4TH FLOOR TODAY. COPD - ACUTE EXACERBATION WITH RESP FAILURE ABOVE . To be slowly improving but due to severe deconditioning status remains tenuous OBESITY SLEEP APNEA -- WILL NEED PRESSURE SUPPORT AT NIGHT URINARY TRACT INFECTION - ON ANTIBIOTICS DIABETES MELLITUS- PT ON LEVEMIR FROM HOME DOSE - CONTINUE TO HOLD METFORMIN AND GLIMEPIRIDE - currently under reasonable control. ANEMIA WITH HX OF UPPER GI BLEED - HGB STABLE - MONITOR H AND H - TRANSFUSED UNCONTROLLED HYPERTENSION - IMPROVED - CONTINUE WITH HOME MEDICATIONS, MONITOR PRESSURE RESPONSE PAIN FROM FX -out of proportion to physical appearance continue to try to utilize oral pain medication first. Considering severe deconditioning and her multiple other health problems, prognosis remains poor with significant likelihood of further medical complications despite best medical care. Critical Care Critical Care: Critically Ill Patient Clinical Quality Measures DVT/VTE Risk/Contraindication: Risk Factor Score Per Nursin RFS Level Per Nursing on Admit: 4+=Very High Contraindications-Pharm: Other *list below* Contraindications-Mechi: Other *list below* LIZ CEDEÑO MD Nov 09, 2017 14:00
[2017-11-09 16:00] VITALS: BP 140/63
[2017-11-09] MEDS: ATORVASTATIN 10 MG (LIPITOR) TABLET PO SCH (20:08)
[2017-11-09] MEDS: KCL 10 MEQ TAB (MICRO K) PO SCH (20:08)
[2017-11-09] MEDS: SERTRALINE 50 MG (ZOLOFT) TABLET PO SCH (20:08)
[2017-11-09] MEDS: HYDROcodone/APAP 5 MG/325 MG (LORTAB) TAB PO PRN (20:19)
[2017-11-09 20:30] VITALS: BP 162/50
[2017-11-10 00:09] VITALS: BP 131/72
[2017-11-10] MEDS: RT-ALBUTEROL/IPRATROPIUM 3 ML (DUONEB) VIAL INH SCH ×6 (02:42→21:14)
[2017-11-10 04:44] VITALS: BP 133/71
[2017-11-10] MEDS: MULTIVIT W/MINERALS TAB (THERAGRAN M) PO SCH (05:13)
[2017-11-10] MEDS: inSUlin ASPART (NovoLOG) 1 UNIT/0.01 ML (CHARGE PER UNIT) SC SCH ×4 (05:44→21:21)
[2017-11-10 06:08] LABS: BASOPHILS % (AUTO) 0 % (0-10); EOSINOPHILS # (AUTO) 0.1 10^3/uL (0.0-0.3); EOSINOPHILS % (AUTO) 1 % (0-10); HEMATOCRIT 29 % (35-52); HEMOGLOBIN 9.2 G/DL (11.5-16.0); LYMPHOCYTES % (AUTO) 12 % (12-44); MEAN CORPUSCULAR HEMOGLOBIN 26 PG (25-34); MEAN CORPUSCULAR HGB CONC 32 G/DL (32-36); MEAN CORPUSCULAR VOLUME 81 FL (80-99); MEAN PLATELET VOLUME 11.1 FL (7.4-10.4); MONOCYTES # (AUTO) 0.9 X 10^3 (0.0-1.0); MONOCYTES % (AUTO) 11 % (0-12); NEUTROPHILS # (AUTO) 6.5 X 10^3 (1.8-7.8); NEUTROPHILS % (AUTO) 76 % (42-75); PLATELET COUNT 218 10^3/uL (130-400); RED BLOOD COUNT 3.59 10^6/uL (4.35-5.85); RED CELL DISTRIBUTION WIDTH 16.2 % (10.0-14.5); WHITE BLOOD COUNT 8.5 10^3/uL (4.3-11.0)
[2017-11-10 06:32] LABS: BUN/CREATININE RATIO 23; CALCIUM 9.9 MG/DL (8.5-10.1); CARBON DIOXIDE 32 MMOL/L (21-32); CHLORIDE 96 MMOL/L (98-107); GFR ESTIMATED > 60; GLUCOSE 148 MG/DL (70-105); POTASSIUM 3.7 MMOL/L (3.6-5.0); SODIUM 138 MMOL/L (135-145)
[2017-11-10] MEDS: UMECLIDINIUM BROMIDE (INCRUSE ELLIPTA) 7'S IH SCH (06:46)
[2017-11-10] MEDS: RT-ADVAIR HFA 115/21 MCG PER PUFF IH SCH ×2 (06:46→19:08)
[2017-11-10 08:00] VITALS: BP 140/80
--- NOTE | 2017-11-10 08:50 | Progress Note (SOAP) ---
Subjective Time Seen by Provider: 08:45 Subjective/Events-last exam atient resting comfortably. Patient waiting for surgery. Patient complaining of pain Focused Exam Respiratory: Decreased Breath Sounds Cardiovascular: Regular Rate, Rhythm, No Murmur Objective Exam Vital Signs Date Time Temp Pulse Resp B/P (MAP) Pulse Ox O2 Delivery O2 Flow Rate FiO2 11/10/17 06:47 93 Nasal Cannula 2.00 11/10/17 06:47 92 Nasal Cannula 2.00 11/10/17 06:46 92 Nasal Cannula 3.00 11/10/17 04:44 98.1 80 23 133/71 (91) 96 NIV Bilevel 11/10/17 04:17 81 30 95 35.00 11/10/17 02:42 75 30 93 35.00 11/10/17 00:09 98.4 79 22 131/72 (91) 96 NIV Bilevel 11/09/17 23:09 86 30 95 35.00 11/09/17 20:30 99.8 109 24 162/50 (87) 93 Nasal Cannula 3.00 11/09/17 20:22 90 Nasal Cannula 2.00 11/09/17 20:15 Nasal Cannula 2.00 11/09/17 19:14 90 Nasal Cannula 2.00 11/09/17 19:08 90 Nasal Cannula 2.00 11/09/17 16:00 99.4 92 20 140/63 (88) 92 Nasal Cannula 2.00 11/09/17 15:27 92 Nasal Cannula 2.00 11/09/17 12:00 99.3 78 24 123/62 (82) 96 Nasal Cannula 2.00 11/09/17 10:41 92 Nasal Cannula 2.00 11/09/17 10:41 93 Nasal Cannula 2.00 I & O 11/10/17 07:00 Intake Total 3080 ml Output Total 2600 ml Balance 480 ml Capillary Refill : Less Than 3 SecondsLess Than 3 Seconds General Appearance: No Apparent Distress, WD/WN HEENT: Normal ENT Inspection Neck: Normal Inspection Respiratory: No Accessory Muscle Use, No Respiratory Distress, Decreased Breath Sounds Cardiovascular: Regular Rate, Rhythm, No Murmur Gastrointestinal: non tender, soft Results Lab Laboratory Tests 11/09/17 11:21: Glucometer 159H 11/09/17 16:05: Glucometer 189H 11/09/17 20:24: Glucometer 195H 11/10/17 05:26: White Blood Count 8.5, Red Blood Count 3.59L, Hemoglobin 9.2L, Hematocrit 29L, Mean Corpuscular Volume 81, Mean Corpuscular Hemoglobin 26, Mean Corpuscular Hemoglobin Concent 32, Red Cell Distribution Width 16.2H, Platelet Count 218, Mean Platelet Volume 11.1H, Neutrophils (%) (Auto) 76H, Lymphocytes (%) (Auto) 12, Monocytes (%) (Auto) 11, Eosinophils (%) (Auto) 1, Basophils (%) (Auto) 0, Neutrophils # (Auto) 6.5, Lymphocytes # (Auto) 1.0, Monocytes # (Auto) 0.9, Eosinophils # (Auto) 0.1, Basophils # (Auto) 0.0, Sodium Level 138, Potassium Level 3.7, Chloride Level 96L, Carbon Dioxide Level 32, Anion Gap 10, Blood Urea Nitrogen 14, Creatinine 0.60, Estimat Glomerular Filtration Rate > 60, BUN/ Creatinine Ratio 23, Glucose Level 148H, Calcium Level 9.9 11/10/17 05:32: Glucometer 143H Microbiology 10/30/17 Blood Culture - Final, Complete No growth 11/01/17 Gram Stain - Final, Complete 11/01/17 Sputum Culture - Final, Complete Usual/normal fang isolated. 10/30/17 Urine Culture - Final, Complete Nonenterococcus (Chains Cocci) Assessment/Plan Assessment/Plan Assess & Plan/Chief Complaint Right acute ankle fracture Acute on chronic respiratory failure. COPD with acute exacerbation. MICHAEL with obesity. Acute UTI. Diabetes. Hypercapnia. Confusion. . 11/03/16 acute right ankle fracture. Acute and chronic respiratory failure COPD with acute exacerbation. diabetes. uTI. Patient on ventilator Patient respiratory distress Friday nightrea . 11/10/17. acute right ankle fracture. Acute and chronic respiratory failure. COPD with acute exacerbation. Diabetes. UTI. Patient waiting for surgery Clinical Quality Measures Admission Status Admission Dx Fractured right ankle. COPD with acute exacerbation. Diabetes. History of CHF. Arthritis. DVT/VTE Risk/Contraindication: Risk Factor Score Per Nursin RFS Level Per Nursing on Admit: 4+=Very High Contraindications-Pharm: Other *list below* Contraindications-Mechi: Other *list below* RADHA HAYES DO Nov 10, 2017 08:50
--- NOTE | 2017-11-10 09:05 | Pulmonary Progress Note ---
Subjective Time Seen by Provider: 09:06 Subjective/Events-last exam No complications noted. Exam Exam Vital Signs Date Time Temp Pulse Resp B/P (MAP) Pulse Ox O2 Delivery O2 Flow Rate FiO2 11/10/17 06:47 93 Nasal Cannula 2.00 11/10/17 06:47 92 Nasal Cannula 2.00 11/10/17 06:46 92 Nasal Cannula 3.00 11/10/17 04:44 98.1 80 23 133/71 (91) 96 NIV Bilevel 11/10/17 04:17 81 30 95 35.00 11/10/17 02:42 75 30 93 35.00 11/10/17 00:09 98.4 79 22 131/72 (91) 96 NIV Bilevel 11/09/17 23:09 86 30 95 35.00 11/09/17 20:30 99.8 109 24 162/50 (87) 93 Nasal Cannula 3.00 11/09/17 20:22 90 Nasal Cannula 2.00 11/09/17 20:15 Nasal Cannula 2.00 11/09/17 19:14 90 Nasal Cannula 2.00 11/09/17 19:08 90 Nasal Cannula 2.00 11/09/17 16:00 99.4 92 20 140/63 (88) 92 Nasal Cannula 2.00 11/09/17 15:27 92 Nasal Cannula 2.00 11/09/17 12:00 99.3 78 24 123/62 (82) 96 Nasal Cannula 2.00 11/09/17 10:41 92 Nasal Cannula 2.00 11/09/17 10:41 93 Nasal Cannula 2.00 I & O 11/10/17 06:59 Intake Total 3080 ml Output Total 2600 ml Balance 480 ml General Appearance: No Apparent Distress, WD/WN HEENT: Normal ENT Inspection Neck: Normal Inspection Respiratory: No Accessory Muscle Use, No Respiratory Distress, Decreased Breath Sounds Cardiovascular: Regular Rate, Rhythm, No Murmur Capillary Refill: Less Than 3 Seconds Peripheral Pulses: 2+ Dorsalis Pedis (R), 2+ Left Dors-Pedis (L) Gastrointestinal: non tender, soft Extremity: Other (Extremity edema appears stable weight is decreasing however.) Neurologic/Psychiatric: Alert, Oriented x3, Normal Mood/Affect Skin: Warm/Dry Lymphatic: No Adenopathy Results Lab Laboratory Tests 11/09/17 04:25 11/10/17 05:26 Assessment/Plan Assessment/Plan Acute ankle fracture -Pain Control Acute on chronic respiratory failure COPDAE-- pt is on 3 liters of oxygen at home -SVNs Q 4 Anemia with gastric occult positive -Monitor MICHAEL with obesity 232 Critical Care: Critically Ill Patient MK RAMOS DO Nov 10, 2017 09:05
[2017-11-10] MEDS: FLUTICASONE NASAL SPRAY (FLONASE) 16 GM BTL NS SCH (09:36)
[2017-11-10] MEDS: SENNA W/DOCUSATE (SENOKOT S) TABLET PO SCH (09:37)
[2017-11-10] MEDS: risperiDONE 1 MG (RisperDAL) TAB PO SCH ×2 (09:37→20:23)
[2017-11-10] MEDS: GABAPENTIN 300 MG (NEURONTIN) CAP PO SCH ×2 (09:37→20:23)
[2017-11-10] MEDS: HYDROCHLOROTHIAZIDE 25 MG (HCTZ) TAB PO SCH (09:37)
[2017-11-10] MEDS: amLODIPine 10 MG (NORVASC) TAB PO SCH (09:37)
[2017-11-10] MEDS: PANTOPRAZOLE 40 MG (PROTONIX) TAB PO SCH ×2 (09:37→20:24)
[2017-11-10] MEDS: HYDROcodone/APAP 5 MG/325 MG (LORTAB) TAB PO PRN ×2 (09:38→16:42)
[2017-11-10] MEDS: ENOXAPARIN 40 MG/0.4 ML (LOVENOX) SYR SC SCH (09:38)
[2017-11-10] MEDS: meTOprolol TARTRATE 50 MG (LOPRESSOR) TAB PO SCH ×2 (09:38→20:23)
[2017-11-10] MEDS: PRAMIPEXOLE 0.5 MG TAB (MIRAPEX) PO SCH (09:38)
[2017-11-10] MEDS: inSUlin DETERMIR 1 UNIT/0.01 ML (LEVEMIR) CHARGE PER UNIT SQ SCH (11:18)
--- NOTE | 2017-11-10 11:40 | Physical Therapy Daily Note ---
PT Daily Note-Current Subjective Patient is extremely lethargic and has difficulty opening her eyes. After time, patient is awake, however, agitated stating, "I just want to go home." Pain Numeric Pain Scale: 10-Worst Possible Pain Location: Soft Tissue Location Body Site: Generalized Comment: FLACC patient yelling during treatment Mental Status Patient Orientation: Confused, Listless Attachments: Oxygen, Wagner Catheter Transfers Functional [place] Measure 0=Not Assessed/NA 4=Minimal Assistance 1=Total Assistance 5=Supervision or Setup 2=Maximal Assistance 6=Modified [place] 3=Moderate Assistance 7=Complete IndependenceIRFPAI Quality Coding Scale 6 Independent with activity with or without an assistive device 5 Patient requires set up or clean up by helper. Patient completes activity by themselves 4 Supervision or touching assist (CGA). [place] provide cues , steadying assist 3 The helper provides less than half the effort to complete the activity 2 The helper provides more than half the effort to complete the activity 1 Dependent. The helper does all the effort to complete an activity 7 Patient refused to complete or attempt activity 9 The patient did not perform the activity before the current illness or injury 88 Not attempted due to Medical conditions or safety concerns Transfers (B, C, W/C) (FIM): 1 Rollin Supine to/from Sit: 1 Bed to/from Chair: 1 Patient did sit EOB x 8 minutes prior to Jose Guadalupe lift transfer bed to recliner. Weight Bearing Right Lower Extremity: Right Non Weight Bearing Left Lower Extremity: Left Full Weight Bearing external fixator right lower LE Exercises Supine Ex: Ankle pumps, Heel Slides, Straight leg raise, Hip abd/add Supine Reps: 20 (left LE PROM with patient yelling in pain the entire time) Assessment Patient is up in recliner via Jose Guadalupe lift with patient unable to assist with mobility and yells during treatment session. OT in for treatment at this time. PT Short Term Goals Short Term Goals Transfers (B,C,W/C) (FIM): 3 PT Animal Groomer Goals Senior Living Goals PT Senior Living Goals Time Frame: Dec 05, 2017 Transfers (B,C,W/C) (FIM): 3 PT Plan Treatment/Plan Treatment Plan: Continue Plan of Care Treatment Plan: Bed Mobility, Education, Functional Activity Lio, Functional Strength, Safety, Therapeutic Exercise, Transfers Treatment Duration: Dec 05, 2017 Frequency: 5 times per week Estimated Hrs Per Day: .25 hour per day Patient and/or Family Agrees t: Yes Discharge Recommendations Therapy D/C Recommendations: [facility] Placement, [facility] (TCU/[facility]) Time/GCodes Time In: 1045 Time Out: 1108 Total Billed Treatment Time: 23 Total Billed Treatment 1 visit FA x 2 23 min LAURA SALINAS PT Nov 10, 2017 11:40
--- NOTE | 2017-11-10 11:55 | Progress Note-Standard ---
Standard Progress Note Progress Notes/Assess & Plan Date Seen by Provider: Nov 10, 2017 Time Seen by Provider: 11:40 Progress/Assessment & Plan Pt ERIC, more alert and interactive today. LLE: ex-fix stable, only mild edema Right ankle, positive wrinkle sign, foot well perfused, all pin sites c/d/i, pt moves all digits well on command. Abd soft/NT Breathing well on O2 NC S/P closed reduction/application of external-fixator Left ankle, one week post- op Strict NWB LLE Contiue to mobilize OOB with PT/OT as able Will plan for removal of ex-fix and definitive fixation on Friday if medically cleared. I discussed the treatment plan with the patient and her All of their questions were answered. They agree with the treatment plan. ZEESHAN RAMACHANDRAN DO Nov 10, 2017 11:55
[2017-11-10 12:00] VITALS: BP 134/84
--- NOTE | 2017-11-10 12:04 | Occupational Ther Daily Note ---
OT Current Status-Daily Note Subjective Pt. states that she already ate breakfast. Appearance PT in room getting pt to chair via camelia. OT takes over once pt. in chair. Mental Status/Objective Patient Orientation: Unable to Assess Functional [place] Measure 0=Not Assessed/NA 4=Minimal Assistance 1=Total Assistance 5=Supervision or Setup 2=Maximal Assistance 6=Modified [place] 3=Moderate Assistance 7=Complete [place] Other Treatment OT assists with getting pt. to chair. Once in chair, pt. is asked if she is hungry. Pt. states "no." OT attempted to hand pt. brush and encouraged her to attempt to brush her hair. Pt. turned her head and quit talking with OT. OT continued to encourage pt., and pt. states,"I'm thinking about it." Pt. does not attempt to brush her hair. OT does this for her. OT asks pt. if she would like to wash her face. Pt. wont answer. Pt. does squeeze OT's hand on command , but will not move any other part of her arm. When questioned pt. states that she is "upset" but does not state why. Pt. is made comfortable. Refusing to work with OT at this time. Education OT Patient Education: Correct positioning, Purpose of tx/functional activities , Reviewed precautions, Rehab process, Transfer techniques Teaching Recipient: Patient Teaching Methods: Discussion OT Short Term Goals Short Term Goals Time Frame: Nov 20, 2017 Eating(FIM): 3 Grooming(FIM): 3 Bathing(FIM): 3 Upper Body Dressing(FIM): 4 Lower Body Dressing(FIM): 3 Toileting(FIM): 3 Transfers (B,C,W/C) (FIM): 3 Toilet/Commode Transfer(FIM): 3 Additional Short Term Goals: 1-Demonstrate ADL Tasks, 2-Verbalize Understanding , 3-ImproveStrength/Lio 1=Demonstrate adherence to instructed precautions during ADL tasks. 2=Patient will verbalize/demonstrate understanding of assistive devices/ modifications for ADL. 3=Patient will improve strength/tolerance for activity to enable patient to perform ADL's. OT Convenience Store Clerk Goals Half-Way Goals Time Frame: Dec 04, 2017 Eating (FIM): 5 Grooming(FIM): 5 Bathing(FIM): 4 Upper Body Dressing(FIM): 5 Lower Body Dressing(FIM): 5 Toileting(FIM): 5 Transfers (B,C,W/C) (FIM): 5 Toilet/Commode Transfer(FIM): 5 Shower Transfer(FIM): 4 Additional Goals: 1-Demonstrate ADL Tasks, 2-Verbalize Understanding, 3- ImproveStrength/Lio 1=Demonstrate adherence to instructed precautions during ADL tasks. 2=Patient will verbalize/demonstrate understanding of assistive devices/ modifications for ADL. 3=Patient will improve strength/tolerance for activity to enable patient to perform ADL's. OT Education/Plan Problem List/Assessment Assessment: Decreased Activ Tolerance, Decreased UE Strength, Dependent Transfers, Impaired Bed Mobility, Impaired Cognition, Impaired Coordination, Impaired Funct Balance, Impaired I ADL's, Impaired Self-Care Skills, Restricted Funct UE ROM Discharge Recommendations Plan/Recommendations: Continue POC Therapy D/C Recommendations: 24 hr Supervision, Senior Living (TCU/NH) Comment Equipment needs and discharge location to be determined. Treatment Plan/Plan of Care Treatment,Training & Education: Yes Patient would benefit from OT for education, treatment and training to promote independence in ADL's, mobility, safety and/or upper extremity function for ADL' s. Plan of Care: ADL Retraining, Functional Mobility Treatment Duration: Dec 04, 2017 Frequency: 5 times per week Estimated Hrs Per Day: .5 hour per day Agreement: Yes Rehab Potential: Guarded Time/GCodes Start Time: 11:00 Stop Time: 11:15 Total Time Billed (hr/min): 15 Billed Treatment Time 1, AURORA BUSH OT Nov 10, 2017 12:04
[2017-11-10] MEDS: morphine INJ 4 MG/ML 1 ML (VIAL/SYRINGE) IVP PRN (12:34)
[2017-11-10] MEDS ORDERED: POLYETHYLENE GLYCOL 17 GM (MIRALAX) PACK PO NR (12:45)
[2017-11-10 16:00] VITALS: BP 140/84
[2017-11-10] MEDS: SERTRALINE 50 MG (ZOLOFT) TABLET PO SCH (20:23)
[2017-11-10] MEDS: KCL 10 MEQ TAB (MICRO K) PO SCH (20:23)
[2017-11-10] MEDS: POLYETHYLENE GLYCOL 17 GM (MIRALAX) PACK PO SCH (20:24)
[2017-11-10] MEDS: ATORVASTATIN 10 MG (LIPITOR) TABLET PO SCH (20:24)
[2017-11-10] MEDS: ACETAMINOPHEN 325 MG TABLET/CAPLET (TYLENOL) PO PRN (21:21)
[2017-11-11 00:16] VITALS: BP 144/87
--- NOTE | 2017-11-11 00:20 | OPERATIVE REPORT ---
DATE OF SERVICE: 11/03/2017 PREOPERATIVE DIAGNOSIS: Closed trimalleolar fracture dislocation right ankle. POSTPROCEDURE DIAGNOSIS: Closed trimalleolar fracture dislocation right ankle. PROCEDURE: Closed reduction followed by application of multiplanar ankle spanning external fixator, right ankle. ATTENDING SURGEON: Dr. Zeeshan Tipton. TITLE DEPARTMENT MANAGER: Lobo Little PA-C; Mr. Little's assistance was required to hold necessary retractors and manual traction on the right ankle and to increase the efficiency and efficacy of the case; this case would not have been possible without an surgical services assistant. ANESTHESIA: General. ESTIMATED BLOOD LOSS: Minimal. COMPLICATIONS: None. SPECIMENS: None. DRAINS: None. BRIEF HISTORY/INDICATIONS: The patient is a 66-year-old female with history of multiple medical comorbidities including severe COPD. The patient had experienced an acute exacerbation of her chronic COPD and sustained a mechanical ground level fall, twisting her right ankle. The patient presented to the [facility] ED for evaluation and treatment. Upon presentation, plain radiographs of the patient's right ankle demonstrated a trimalleolar fracture dislocation. The patient underwent a closed reduction of her right ankle per emergency room staff and then was admitted to the hospital on the medicine service secondary to acute exacerbation of chronic COPD. Orthopedic service was consulted for definitive management of her right ankle injury. I discussed the nature of the patient's injury in detail with her and her who was at bedside including the natural history and prognosis as well as indications for surgery. We did discuss the treatment options including both nonoperative and operative measures. I did explain that secondary to the instability of this injury that operative fixation is indicated. I felt that secondary to the patient's medical status as well as significant soft tissue swelling of the right ankle then the temporizing stabilization with an external fixator was indicated. After discussing the risks, benefits, potential complications and expected outcomes of our planned surgical procedure, the patient gave informed written consent to proceed as planned after all of her questions were answered to her satisfaction. PROCEDURE NOTE: After correctly identifying the patient as the patient in the preoperative holding area and after her right lower extremity was appropriately marked, she was transferred to the operating room. Once in the operating room, the patient had successful induction of general anesthesia and she was transferred to a radiolucent OR table and placed in the supine position. All bony prominences were meticulously padded. Soft bump was placed underneath the right hip to maintain neutral rotation of the right leg. No tourniquet was used during this case. The right leg was then prepped and draped in a routine sterile fashion. Prior to making incisions, we completed an operating room timeout with all parties involved in the case in agreement and verified appropriate infusion of prophylactic antibiotics. Using a 15 blade scalpel, I made two small incisions over the mid aspect of the right tibia incising down to bone. I then placed two 5 mm self-drilling self tapping Schanz pins into the mid diaphysis of the tibia to the appropriate length. Calcaneal pin was then inserted from medial to lateral and then two metatarsal pins were placed in the shaft of the first and fifth metatarsals. An external fixator frame was then constructed in usual fashion, manual traction and reduction maneuver was then completed in the ankle fracture to the point where the ankle mortise was anatomically reduced and aligned. External fixator was locked in position at that point, then C-arm imaging confirmed that the ankle was in the appropriate anatomic position and out to the appropriate length in both AP and lateral planes. All pins were confirmed to be at the appropriate length. The patient had sterile dressings applied and then was transferred back to the Intensive Care Unit, still intubated in stable condition. She tolerated the procedure quite well without complications. All counts were correct at the end of the case. PLAN: The patient will remain in the external fixator I believe for a minimum of 7 to 10 days to allow soft tissue swelling to subside to the point where incisions can be safely made for definitive fixation. The patient will get the appropriate DVT prophylaxis and prophylactic antibiotics. She will be mobilized with physical therapy out of bed when able. She will be monitored in the usual fashion for soft tissue swelling and we will proceed with definitive surgery as soft tissue stability allows. We will also proceed with surgery if she is medically cleared. I did explain to the that there is a chance that the patient would need to remain in the external fixator as a form of definitive treatment secondary to her medical condition. He understood this and all of his questions were answered to his satisfaction regarding his 's care. Job ID: [id number] DocumentID: [id number] Dictated Date: 11/10/2017 16:46:57 Edge Cutting Machine Operator Date: 11/11/2017 00:20:05 Dictated By: ZEESHAN JAMES
[2017-11-11] MEDS: RT-ALBUTEROL/IPRATROPIUM 3 ML (DUONEB) VIAL INH SCH ×6 (02:02→21:55)
[2017-11-11 05:45] LABS: MEAN PLATELET VOLUME 11.2 FL (7.4-10.4); RED BLOOD COUNT 3.53 10^6/uL (4.35-5.85); WHITE BLOOD COUNT 8.6 10^3/uL (4.3-11.0)
[2017-11-11] MEDS: inSUlin ASPART (NovoLOG) 1 UNIT/0.01 ML (CHARGE PER UNIT) SC SCH ×4 (06:06→21:01)
[2017-11-11 06:09] LABS: ALBUMIN 3.1 GM/DL (3.2-4.5); ALKALINE PHOSPHATASE 60 U/L (40-136); BILIRUBIN,TOTAL 0.5 MG/DL (0.1-1.0); BUN/CREATININE RATIO 25; CARBON DIOXIDE 34 MMOL/L (21-32); CHLORIDE 98 MMOL/L (98-107); GFR ESTIMATED > 60; GLUCOSE 138 MG/DL (70-105); POTASSIUM 3.6 MMOL/L (3.6-5.0); SODIUM 140 MMOL/L (135-145); TOTAL PROTEIN 5.8 GM/DL (6.4-8.2)
[2017-11-11] MEDS: MULTIVIT W/MINERALS TAB (THERAGRAN M) PO SCH (06:10)
[2017-11-11] MEDS: HYDROcodone/APAP 5 MG/325 MG (LORTAB) TAB PO PRN ×3 (06:11→21:41)
[2017-11-11 06:31] LABS: ALANINE AMINOTRANSFERASE 37 U/L (0-55)
--- NOTE | 2017-11-11 07:03 | Diagnostic Imaging Report ---
CLINICAL INDICATION: Followup COPD. EXAM: Portable chest x-ray upright view. COMPARISON: Chest x-ray dated 11/07/2017. FINDINGS: The heart size is now within normal limits for portable projection compared to the prior study. There is continued prominence of the pulmonary vasculature centrally. There is improved aeration of the right lung base with residual atelectasis versus infiltrate remaining. There is continued left basilar atelectasis versus infiltrate. Remainder of the lungs are clear. There is no pleural effusion or pneumothorax. The remainder of this exam shows no significant interval change compared to the prior study of comparison. IMPRESSION: 1: Heart size within normal limits with stable prominence of the pulmonary vasculature centrally. 2: There is mild bibasilar atelectasis versus infiltrate which is slightly improved on the right, but is stable on the left. Dictated by: Dictated on workstation # [id number]
[2017-11-11] MEDS: RT-ADVAIR HFA 115/21 MCG PER PUFF IH SCH ×2 (07:21→18:48)
[2017-11-11] MEDS: UMECLIDINIUM BROMIDE (INCRUSE ELLIPTA) 7'S IH SCH (07:21)
[2017-11-11 08:00] VITALS: BP 144/82
--- NOTE | 2017-11-11 08:02 | Progress Note (SOAP) ---
Subjective Time Seen by Provider: 08:00 Subjective/Events-last exam Patient feeling better. Patient doing better. Chest x-ray improved. Patient have surgery tomorrow. COPD. Acute and chronic respiratory failure. Diabetes under control Objective Exam Vital Signs Date Time Temp Pulse Resp B/P (MAP) Pulse Ox O2 Delivery O2 Flow Rate FiO2 11/11/17 07:19 93 Nasal Cannula 3.50 11/11/17 02:02 68 20 93 35.00 11/11/17 00:34 60 21 94 35.00 11/11/17 00:16 97.8 79 19 144/87 (106) 97 Nasal Cannula 3.00 11/10/17 21:15 62 22 95 35.00 11/10/17 20:00 Nasal Cannula 2.00 11/10/17 19:14 95 Nasal Cannula 3.00 11/10/17 19:08 95 Nasal Cannula 3.00 11/10/17 16:00 98.3 81 22 140/84 (102) 97 Nasal Cannula 3.00 11/10/17 14:11 92 Nasal Cannula 3.00 11/10/17 12:00 98.8 78 20 134/84 (101) 96 Nasal Cannula 3.00 11/10/17 10:02 92 Nasal Cannula 3.00 I & O 11/11/17 07:00 Intake Total 800 ml Output Total 1900 ml Balance -1100 ml Capillary Refill : Less Than 3 SecondsLess Than 3 Seconds General Appearance: No Apparent Distress, WD/WN HEENT: Normal ENT Inspection Neck: Full Range of Motion Respiratory: Chest Non Tender, No Accessory Muscle Use, No Respiratory Distress Cardiovascular: Regular Rate, Rhythm, No Murmur Gastrointestinal: non tender, soft Results Lab Laboratory Tests 11/10/17 11:32: Glucometer 189H 11/10/17 16:16: Glucometer 268H 11/10/17 21:12: Glucometer 162H 11/11/17 05:25: White Blood Count 8.6, Red Blood Count 3.53L, Hemoglobin 9.0L, Hematocrit 30L, Mean Corpuscular Volume 85, Mean Corpuscular Hemoglobin 26, Mean Corpuscular Hemoglobin Concent 30L, Red Cell Distribution Width 16.0H, Platelet Count 249, Mean Platelet Volume 11.2H, Sodium Level 140, Potassium Level 3.6, Chloride Level 98, Carbon Dioxide Level 34H, Anion Gap 8, Blood Urea Nitrogen 15, Creatinine 0.60, Estimat Glomerular Filtration Rate > 60, BUN/Creatinine Ratio 25, Glucose Level 138H, Calcium Level 10.0, Total Bilirubin 0.5, Aspartate Amino Transf (AST/SGOT) 23, Alanine Aminotransferase (ALT/SGPT) 37, Alkaline Phosphatase 60, Total Protein 5.8L, Albumin 3.1L 11/11/17 05:47: Glucometer 135H Microbiology 10/30/17 Blood Culture - Final, Complete No growth 11/01/17 Gram Stain - Final, Complete 11/01/17 Sputum Culture - Final, Complete Usual/normal fang isolated. 10/30/17 Urine Culture - Final, Complete Nonenterococcus (Chains Cocci) Assessment/Plan Assessment/Plan Assess & Plan/Chief Complaint Right acute ankle fracture Acute on chronic respiratory failure. COPD with acute exacerbation. MICHAEL with obesity. Acute UTI. Diabetes. Hypercapnia. Confusion. . 11/03/16 acute right ankle fracture. Acute and chronic respiratory failure COPD with acute exacerbation. diabetes. uTI. Patient on ventilator Patient respiratory distress Friday nightrea . 11/10/17. acute right ankle fracture. Acute and chronic respiratory failure. COPD with acute exacerbation. Diabetes. UTI. Patient waiting for surgery. . 11/11/17. Right acute ankle fracture. Acute and chronic respiratory failure. COPD with acute exacerbation. MICHAEL. Diabetes. Patient ready for surgery tomorrow Clinical Quality Measures Admission Status Admission Dx Fractured right ankle. COPD with acute exacerbation. Diabetes. History of CHF. Arthritis. DVT/VTE Risk/Contraindication: Risk Factor Score Per Nursin RFS Level Per Nursing on Admit: 4+=Very High Contraindications-Pharm: Other *list below* Contraindications-Mechi: Other *list below* RADHA HAYES DO Nov 11, 2017 08:02
[2017-11-11] MEDS: meTOprolol TARTRATE 50 MG (LOPRESSOR) TAB PO SCH ×2 (08:31→20:00)
[2017-11-11] MEDS: HYDROCHLOROTHIAZIDE 25 MG (HCTZ) TAB PO SCH (08:31)
[2017-11-11] MEDS: SENNA W/DOCUSATE (SENOKOT S) TABLET PO SCH (08:31)
[2017-11-11] MEDS: PANTOPRAZOLE 40 MG (PROTONIX) TAB PO SCH ×2 (08:31→20:00)
[2017-11-11] MEDS: risperiDONE 1 MG (RisperDAL) TAB PO SCH ×2 (08:32→20:00)
[2017-11-11] MEDS: GABAPENTIN 300 MG (NEURONTIN) CAP PO SCH ×2 (08:32→20:00)
[2017-11-11] MEDS: PRAMIPEXOLE 0.5 MG TAB (MIRAPEX) PO SCH (08:32)
[2017-11-11] MEDS: amLODIPine 10 MG (NORVASC) TAB PO SCH (08:32)
[2017-11-11] MEDS: ENOXAPARIN 40 MG/0.4 ML (LOVENOX) SYR SC SCH (08:33)
[2017-11-11] MEDS: ACETAMINOPHEN 325 MG TABLET/CAPLET (TYLENOL) PO PRN (08:33)
[2017-11-11] MEDS: FLUTICASONE NASAL SPRAY (FLONASE) 16 GM BTL NS SCH (08:36)
--- NOTE | 2017-11-11 08:43 | Occupational Ther Daily Note ---
OT Current Status-Daily Note Subjective Pt alert, lying in bed. Pt just had received breakfast. Pt agreed to therapy. C/o pain 6/10 rated, nrsg notified. Co-treat with PT for skilled care for transfers and bed mobility. Mental Status/Objective Patient Orientation: Person, Place, Time, Situation Functional [place] Measure 0=Not Assessed/NA 4=Minimal Assistance 1=Total Assistance 5=Supervision or Setup 2=Maximal Assistance 6=Modified [place] 3=Moderate Assistance 7=Complete [place] Attachments: Oxygen ADL-Treatment PT worked on transfers and LE AROM and OT worked on UE AROM and feeding. Max A for bed mobility to place camelia sling for transfer. Pt transferred with camelia to recliner. Pt then required set up for breakfast. Pt has loose hammerer helper, built up handle placed on fork. Pt able to loosely grasp toast and bring to mouth. After therapy, nrsg in room. All needs met in room. Eating (FIM): 4 OT Short Term Goals Short Term Goals Time Frame: Nov 20, 2017 Eating(FIM): 3 Grooming(FIM): 3 Bathing(FIM): 3 Upper Body Dressing(FIM): 4 Lower Body Dressing(FIM): 3 Toileting(FIM): 3 Transfers (B,C,W/C) (FIM): 3 Toilet/Commode Transfer(FIM): 3 Additional Short Term Goals: 1-Demonstrate ADL Tasks, 2-Verbalize Understanding , 3-ImproveStrength/Lio 1=Demonstrate adherence to instructed precautions during ADL tasks. 2=Patient will verbalize/demonstrate understanding of assistive devices/ modifications for ADL. 3=Patient will improve strength/tolerance for activity to enable patient to perform ADL's. OT Gin Clerk Goals Gin Clerk Goals Time Frame: Dec 04, 2017 Eating (FIM): 5 Grooming(FIM): 5 Bathing(FIM): 4 Upper Body Dressing(FIM): 5 Lower Body Dressing(FIM): 5 Toileting(FIM): 5 Transfers (B,C,W/C) (FIM): 5 Toilet/Commode Transfer(FIM): 5 Shower Transfer(FIM): 4 Additional Goals: 1-Demonstrate ADL Tasks, 2-Verbalize Understanding, 3- ImproveStrength/Lio 1=Demonstrate adherence to instructed precautions during ADL tasks. 2=Patient will verbalize/demonstrate understanding of assistive devices/ modifications for ADL. 3=Patient will improve strength/tolerance for activity to enable patient to perform ADL's. OT Education/Plan Discharge Recommendations Plan/Recommendations: Continue POC Treatment Plan/Plan of Care Patient would benefit from OT for education, treatment and training to promote independence in ADL's, mobility, safety and/or upper extremity function for ADL' s. Plan of Care: ADL Retraining, Functional Mobility Treatment Duration: Dec 04, 2017 Frequency: 5 times per week Estimated Hrs Per Day: .5 hour per day Agreement: Yes Rehab Potential: Guarded Time/GCodes Start Time: 08:15 Stop Time: 08:30 Total Time Billed (hr/min): 15 Billed Treatment Time 1 visit-FA 1 (15 min) co-treat with PT (15 min) ÓSCAR PARSONS Nov 11, 2017 08:43
--- NOTE | 2017-11-11 08:59 | Physical Therapy Daily Note ---
PT Daily Note-Current Subjective Patient is very alert today and agrees to OOB. Pain Numeric Pain Scale: 0-No Pain Location: No Pain Reported Mental Status Patient Orientation: Person, Time, Situation Attachments: Oxygen Transfers Functional [place] Measure 0=Not Assessed/NA 4=Minimal Assistance 1=Total Assistance 5=Supervision or Setup 2=Maximal Assistance 6=Modified [place] 3=Moderate Assistance 7=Complete IndependenceIRFPAI Quality Coding Scale 6 Independent with activity with or without an assistive device 5 Patient requires set up or clean up by helper. Patient completes activity by themselves 4 Supervision or touching assist (CGA). [place] provide cues , steadying assist 3 The helper provides less than half the effort to complete the activity 2 The helper provides more than half the effort to complete the activity 1 Dependent. The helper does all the effort to complete an activity 7 Patient refused to complete or attempt activity 9 The patient did not perform the activity before the current illness or injury 88 Not attempted due to Medical conditions or safety concerns Transfers (B, C, W/C) (FIM): 1 Scootin Rollin Supine to/from Sit: 1 Bed to/from Chair: 1 Jose Guadalupe lift transfer with cotreat with OT with PT focus on patient rolling side to side to place sling under patient and bed mobility exercises, while OT focused on upper body alignment with sling use. Weight Bearing Right Lower Extremity: Right Non Weight Bearing Left Lower Extremity: Left Full Weight Bearing external fixator right lower LE Exercises Seated Therapy Exercises: Long arc quads Seated Reps: 15 (2 sets) Assessment Patient is up in recliner with needs met. OT and PT cotreat to meet patient needs with safe transfer. PT focused on bed mobility activity with sling placement and bilateral LE exercise and placement in sling and up in recliner. PT Short Term Goals Short Term Goals Transfers (B,C,W/C) (FIM): 3 PT Skilled Nursing Goals Assembly Inspector Goals PT Skilled Nursing Goals Time Frame: Dec 05, 2017 Transfers (B,C,W/C) (FIM): 3 PT Plan Treatment/Plan Treatment Plan: Continue Plan of Care Treatment Plan: Bed Mobility, Education, Functional Activity Lio, Functional Strength, Safety, Therapeutic Exercise, Transfers Treatment Duration: Dec 05, 2017 Frequency: 5 times per week Estimated Hrs Per Day: .25 hour per day Patient and/or Family Agrees t: Yes Time/GCodes Time In: 815 Time Out: 830 Total Billed Treatment Time: 15 Total Billed Treatment 1 visit FA 15 min LAURA SALINAS PT Nov 11, 2017 08:59
[2017-11-11] MEDS: inSUlin DETERMIR 1 UNIT/0.01 ML (LEVEMIR) CHARGE PER UNIT SQ SCH (11:16)
[2017-11-11 16:20] VITALS: BP 164/77
[2017-11-11] MEDS: POLYETHYLENE GLYCOL 17 GM (MIRALAX) PACK PO SCH (20:00)
[2017-11-11] MEDS: ATORVASTATIN 10 MG (LIPITOR) TABLET PO SCH (20:00)
[2017-11-11] MEDS: KCL 10 MEQ TAB (MICRO K) PO SCH (20:00)
[2017-11-11] MEDS: SERTRALINE 50 MG (ZOLOFT) TABLET PO SCH (20:00)
[2017-11-12 00:51] VITALS: BP 140/79
[2017-11-12] MEDS: RT-ALBUTEROL/IPRATROPIUM 3 ML (DUONEB) VIAL INH SCH ×6 (02:04→22:28)
[2017-11-12] MEDS: HYDROcodone/APAP 5 MG/325 MG (LORTAB) TAB PO PRN ×3 (05:15→18:45)
[2017-11-12] MEDS: MULTIVIT W/MINERALS TAB (THERAGRAN M) PO SCH (05:15)
[2017-11-12 05:56] LABS: BASOPHILS % (AUTO) 0 % (0-10); EOSINOPHILS # (AUTO) 0.1 10^3/uL (0.0-0.3); EOSINOPHILS % (AUTO) 2 % (0-10); HEMATOCRIT 32 % (35-52); HEMOGLOBIN 9.1 G/DL (11.5-16.0); LYMPHOCYTES % (AUTO) 14 % (12-44); MEAN CORPUSCULAR HEMOGLOBIN 25 PG (25-34); MEAN CORPUSCULAR HGB CONC 29 G/DL (32-36); MEAN CORPUSCULAR VOLUME 88 FL (80-99); MEAN PLATELET VOLUME 11.6 FL (7.4-10.4); MONOCYTES # (AUTO) 0.7 X 10^3 (0.0-1.0); MONOCYTES % (AUTO) 10 % (0-12); NEUTROPHILS # (AUTO) 4.9 X 10^3 (1.8-7.8); NEUTROPHILS % (AUTO) 74 % (42-75); PLATELET COUNT 288 10^3/uL (130-400); RED BLOOD COUNT 3.63 10^6/uL (4.35-5.85); RED CELL DISTRIBUTION WIDTH 15.8 % (10.0-14.5); WHITE BLOOD COUNT 6.7 10^3/uL (4.3-11.0)
[2017-11-12 06:02] LABS: BUN/CREATININE RATIO 20; CALCIUM 10.3 MG/DL (8.5-10.1); CARBON DIOXIDE 35 MMOL/L (21-32); CHLORIDE 96 MMOL/L (98-107); GFR ESTIMATED > 60; GLUCOSE 151 MG/DL (70-105); SODIUM 141 MMOL/L (135-145)
[2017-11-12] MEDS: inSUlin ASPART (NovoLOG) 1 UNIT/0.01 ML (CHARGE PER UNIT) SC SCH ×4 (06:02→20:29)
[2017-11-12] MEDS: UMECLIDINIUM BROMIDE (INCRUSE ELLIPTA) 7'S IH SCH (06:03)
[2017-11-12] MEDS: RT-ADVAIR HFA 115/21 MCG PER PUFF IH SCH ×2 (06:03→18:19)
--- NOTE | 2017-11-12 07:58 | Progress Note (SOAP) ---
Subjective Date Seen by Provider: Nov 12, 2017 Time Seen by Provider: 07:40 Subjective/Events-last exam Pt ERIC, doing much better, respiratory function much improved, pain controlled, no complaints. Focused Exam Respiratory: No Accessory Muscle Use, No Respiratory Distress Cardiovascular: Regular Rate, Rhythm, Normal Peripheral Pulses Capillary Refill: Less Than 3 Seconds Peripheral Pulses: 2+ Dorsalis Pedis (R), 2+ Left Dors-Pedis (L) Skin: normal color, warm/dry Objective Exam Vital Signs Date Time Temp Pulse Resp B/P (MAP) Pulse Ox O2 Delivery O2 Flow Rate FiO2 11/12/17 06:04 93 Nasal Cannula 3.50 11/12/17 02:04 94 Nasal Cannula 3.50 11/12/17 00:51 97.7 65 19 140/79 (99) 97 Nasal Cannula 3.00 11/11/17 21:55 97 Nasal Cannula 3.50 11/11/17 20:00 Nasal Cannula 2.00 11/11/17 18:48 92 Nasal Cannula 3.50 11/11/17 16:20 98.9 93 20 164/77 (106) 96 Nasal Cannula 3.00 11/11/17 14:54 78 Room Air 11/11/17 11:30 91 Nasal Cannula 3.50 11/11/17 08:25 Nasal Cannula 2.00 11/11/17 08:00 97.8 85 20 144/82 (102) 95 Nasal Cannula 3.00 I & O 11/12/17 07:00 Intake Total 1940 ml Output Total 2800 ml Balance -860 ml Capillary Refill : Less Than 3 SecondsLess Than 3 Seconds General Appearance: No Apparent Distress Extremity: Other (RLE: ex-fix stable, all pin sites c/d/i, all compartments soft/NT, minimal edema, foot well perfused, motor/sensation grossly intact) Neurologic/Psychiatric: Alert, Oriented x3, No Motor/Sensory Deficits, Normal 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, 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 Norm as Tested Results Lab Laboratory Tests 11/11/17 10:58: Glucometer 297H 11/11/17 16:25: Glucometer 235H 11/11/17 20:58: Glucometer 223H 11/12/17 04:50: White Blood Count 6.7, Red Blood Count 3.63L, Hemoglobin 9.1L, Hematocrit 32L, Mean Corpuscular Volume 88, Mean Corpuscular Hemoglobin 25, Mean Corpuscular Hemoglobin Concent 29L, Red Cell Distribution Width 15.8H, Platelet Count 288, Mean Platelet Volume 11.6H, Neutrophils (%) (Auto) 74, Lymphocytes (%) (Auto) 14 , Monocytes (%) (Auto) 10, Eosinophils (%) (Auto) 2, Basophils (%) (Auto) 0, Neutrophils # (Auto) 4.9, Lymphocytes # (Auto) 1.0, Monocytes # (Auto) 0.7, Eosinophils # (Auto) 0.1, Basophils # (Auto) 0.0, Sodium Level 141, Potassium Level 4.0, Chloride Level 96L, Carbon Dioxide Level 35H, Anion Gap 10, Blood Urea Nitrogen 12, Creatinine 0.60, Estimat Glomerular Filtration Rate > 60, BUN/ Creatinine Ratio 20, Glucose Level 151H, Calcium Level 10.3H 11/12/17 05:33: Glucometer 153H Microbiology 10/30/17 Blood Culture - Final, Complete No growth 11/01/17 Gram Stain - Final, Complete 11/01/17 Sputum Culture - Final, Complete Usual/normal fang isolated. 10/30/17 Urine Culture - Final, Complete Nonenterococcus (Chains Cocci) Assessment/Plan Assessment/Plan Assess & Plan/Chief Complaint A/P: 66 y/o female s/p mechanical GLF with a closed trimalleolar fracture right ankle S/P closed reduction/application of ex-fix 11/03/2017 Orthopedically stable Was planning RO ex-fix/definitive fixation today but the OR was unable to accommodate today. Therefore will plan for definitive surgery tomorrow; patient on schedule for 12: 30 pm. NPO after MN tonight. Plan discussed with the patient and Questions answered. Clinical Quality Measures DVT/VTE Risk/Contraindication: Risk Factor Score Per Nursin RFS Level Per Nursing on Admit: 4+=Very High Contraindications-Pharm: Other *list below* Contraindications-Mechi: Other *list below* ZEESHAN RAMACHANDRAN DO Nov 12, 2017 07:58
[2017-11-12 08:00] VITALS: BP 136/78
--- NOTE | 2017-11-12 08:06 | Progress Note (SOAP) ---
Subjective Time Seen by Provider: 08:04 Subjective/Events-last exam Patient feeling better and doing better. Patient positive. Patient have orthopedic surgery tomorrow Objective Exam Vital Signs Date Time Temp Pulse Resp B/P (MAP) Pulse Ox O2 Delivery O2 Flow Rate FiO2 11/12/17 06:04 93 Nasal Cannula 3.50 11/12/17 02:04 94 Nasal Cannula 3.50 11/12/17 00:51 97.7 65 19 140/79 (99) 97 Nasal Cannula 3.00 11/11/17 21:55 97 Nasal Cannula 3.50 11/11/17 20:00 Nasal Cannula 2.00 11/11/17 18:48 92 Nasal Cannula 3.50 11/11/17 16:20 98.9 93 20 164/77 (106) 96 Nasal Cannula 3.00 11/11/17 14:54 78 Room Air 11/11/17 11:30 91 Nasal Cannula 3.50 11/11/17 08:25 Nasal Cannula 2.00 I & O 11/12/17 07:00 Intake Total 1940 ml Output Total 2800 ml Balance -860 ml Capillary Refill : Less Than 3 SecondsLess Than 3 Seconds General Appearance: No Apparent Distress HEENT: Normal ENT Inspection Neck: Full Range of Motion, Normal Inspection Results Lab Laboratory Tests 11/12/17 04:50 Laboratory Tests 11/11/17 10:58: Glucometer 297H 11/11/17 16:25: Glucometer 235H 11/11/17 20:58: Glucometer 223H 11/12/17 04:50: White Blood Count 6.7, Red Blood Count 3.63L, Hemoglobin 9.1L, Hematocrit 32L, Mean Corpuscular Volume 88, Mean Corpuscular Hemoglobin 25, Mean Corpuscular Hemoglobin Concent 29L, Red Cell Distribution Width 15.8H, Platelet Count 288, Mean Platelet Volume 11.6H, Neutrophils (%) (Auto) 74, Lymphocytes (%) (Auto) 14 , Monocytes (%) (Auto) 10, Eosinophils (%) (Auto) 2, Basophils (%) (Auto) 0, Neutrophils # (Auto) 4.9, Lymphocytes # (Auto) 1.0, Monocytes # (Auto) 0.7, Eosinophils # (Auto) 0.1, Basophils # (Auto) 0.0, Sodium Level 141, Potassium Level 4.0, Chloride Level 96L, Carbon Dioxide Level 35H, Anion Gap 10, Blood Urea Nitrogen 12, Creatinine 0.60, Estimat Glomerular Filtration Rate > 60, BUN/ Creatinine Ratio 20, Glucose Level 151H, Calcium Level 10.3H 11/12/17 05:33: Glucometer 153H Microbiology 10/30/17 Blood Culture - Final, Complete No growth 11/01/17 Gram Stain - Final, Complete 11/01/17 Sputum Culture - Final, Complete Usual/normal fang isolated. 10/30/17 Urine Culture - Final, Complete Nonenterococcus (Chains Cocci) Assessment/Plan Assessment/Plan Assess & Plan/Chief Complaint Right acute ankle fracture Acute on chronic respiratory failure. COPD with acute exacerbation. MICHAEL with obesity. Acute UTI. Diabetes. Hypercapnia. Confusion. . 11/03/16 acute right ankle fracture. Acute and chronic respiratory failure COPD with acute exacerbation. diabetes. uTI. Patient on ventilator Patient respiratory distress Friday nightrea . 11/10/17. acute right ankle fracture. Acute and chronic respiratory failure. COPD with acute exacerbation. Diabetes. UTI. Patient waiting for surgery. . 11/11/17. Right acute ankle fracture. Acute and chronic respiratory failure. COPD with acute exacerbation. MICHAEL. Diabetes. Patient ready for surgery tomorrow. . 11/12/17. Right acute ankle fracture. Acute and chronic respiratory failure. COPD with acute exacerbation. Diabetes. Patient have surgery tomorrow. Patient constipated. Patient is as good as can be expected Clinical Quality Measures Admission Status Admission Dx Fractured right ankle. COPD with acute exacerbation. Diabetes. History of CHF. Arthritis. DVT/VTE Risk/Contraindication: Risk Factor Score Per Nursin RFS Level Per Nursing on Admit: 4+=Very High Contraindications-Pharm: Other *list below* Contraindications-Mechi: Other *list below* RADHA HAYES DO Nov 12, 2017 08:06
[2017-11-12] MEDS ORDERED: MAGNESIUM CITRATE 300 ML BTL PO NR (08:15)
[2017-11-12] MEDS ORDERED: LACTATED RINGERS 1,000 ML IV PRN (08:55)
[2017-11-12] MEDS: PRAMIPEXOLE 0.5 MG TAB (MIRAPEX) PO SCH (09:14)
[2017-11-12] MEDS: PANTOPRAZOLE 40 MG (PROTONIX) TAB PO SCH ×2 (09:14→20:28)
[2017-11-12] MEDS: amLODIPine 10 MG (NORVASC) TAB PO SCH (09:14)
[2017-11-12] MEDS: GABAPENTIN 300 MG (NEURONTIN) CAP PO SCH ×2 (09:14→20:28)
[2017-11-12] MEDS: ENOXAPARIN 40 MG/0.4 ML (LOVENOX) SYR SC SCH (09:14)
[2017-11-12] MEDS: FLUTICASONE NASAL SPRAY (FLONASE) 16 GM BTL NS SCH (09:14)
[2017-11-12] MEDS: SENNA W/DOCUSATE (SENOKOT S) TABLET PO SCH (09:14)
[2017-11-12] MEDS: meTOprolol TARTRATE 50 MG (LOPRESSOR) TAB PO SCH ×2 (09:14→20:32)
[2017-11-12] MEDS: risperiDONE 1 MG (RisperDAL) TAB PO SCH ×2 (09:14→20:28)
[2017-11-12] MEDS: HYDROCHLOROTHIAZIDE 25 MG (HCTZ) TAB PO SCH (09:24)
[2017-11-12] MEDS: ACETAMINOPHEN 325 MG TABLET/CAPLET (TYLENOL) PO PRN ×2 (10:08→16:14)
--- NOTE | 2017-11-12 10:48 | Occupational Ther Daily Note ---
OT Current Status-Daily Note Subjective Pt alert, lying in bed. Family present in room. Pt stated "I don't need anything." Explained that CHUN was there for therapy. Pt agreed to therapy, but did not want to get into chair since she had just got back to bed. Mental Status/Objective Functional [place] Measure 0=Not Assessed/NA 4=Minimal Assistance 1=Total Assistance 5=Supervision or Setup 2=Maximal Assistance 6=Modified [place] 3=Moderate Assistance 7=Complete [place] ADL-Treatment Pt stated that she had already been cleaned up this morning and did not need to do that. Other Treatment Pt completed UE exercises while lying supine in bed. Pt appeared SOA during exercises. Respiratory in room at end of treatment. 10 reps completed though pt fatigued after 5th rep, CHUN encouraged pt to finish. Pt requested to be finished with exercising. Respiratory started breathing treatment. After therapy, pt lying in bed with call light in reach. Pt stated that she did not want phone. All needs met in room. OT Short Term Goals Short Term Goals Time Frame: Nov 20, 2017 Eating(FIM): 3 Grooming(FIM): 3 Bathing(FIM): 3 Upper Body Dressing(FIM): 4 Lower Body Dressing(FIM): 3 Toileting(FIM): 3 Transfers (B,C,W/C) (FIM): 3 Toilet/Commode Transfer(FIM): 3 Additional Short Term Goals: 1-Demonstrate ADL Tasks, 2-Verbalize Understanding , 3-ImproveStrength/Lio 1=Demonstrate adherence to instructed precautions during ADL tasks. 2=Patient will verbalize/demonstrate understanding of assistive devices/ modifications for ADL. 3=Patient will improve strength/tolerance for activity to enable patient to perform ADL's. OT Beef Skinner Goals Beef Skinner Goals Time Frame: Dec 04, 2017 Eating (FIM): 5 Grooming(FIM): 5 Bathing(FIM): 4 Upper Body Dressing(FIM): 5 Lower Body Dressing(FIM): 5 Toileting(FIM): 5 Transfers (B,C,W/C) (FIM): 5 Toilet/Commode Transfer(FIM): 5 Shower Transfer(FIM): 4 Additional Goals: 1-Demonstrate ADL Tasks, 2-Verbalize Understanding, 3- ImproveStrength/Lio 1=Demonstrate adherence to instructed precautions during ADL tasks. 2=Patient will verbalize/demonstrate understanding of assistive devices/ modifications for ADL. 3=Patient will improve strength/tolerance for activity to enable patient to perform ADL's. OT Education/Plan Discharge Recommendations Plan/Recommendations: Continue POC Treatment Plan/Plan of Care Patient would benefit from OT for education, treatment and training to promote independence in ADL's, mobility, safety and/or upper extremity function for ADL' s. Plan of Care: ADL Retraining, Functional Mobility Treatment Duration: Dec 04, 2017 Frequency: 5 times per week Estimated Hrs Per Day: .5 hour per day Agreement: Yes Rehab Potential: Guarded Time/GCodes Start Time: 10:15 Stop Time: 10:30 Total Time Billed (hr/min): 15 Billed Treatment Time 1 visit-EX 1 (15 min) ÓSCAR PARSONS Nov 12, 2017 10:47
[2017-11-12] MEDS: inSUlin DETERMIR 1 UNIT/0.01 ML (LEVEMIR) CHARGE PER UNIT SQ SCH (11:10)
--- NOTE | 2017-11-12 13:45 | Physical Therapy Progress Note ---
Therapy Progress Note Patient sitting up at bedside. Requests to hold therapy today. She reports she will be having surgery tomorrow for internal fixation of the right lower leg. ANDREI PETTY PT Nov 12, 2017 13:45
[2017-11-12 16:20] VITALS: BP 120/60
[2017-11-12] MEDS: ATORVASTATIN 10 MG (LIPITOR) TABLET PO SCH (20:28)
[2017-11-12] MEDS: KCL 10 MEQ TAB (MICRO K) PO SCH (20:28)
[2017-11-12] MEDS: SERTRALINE 50 MG (ZOLOFT) TABLET PO SCH (20:28)
[2017-11-12] MEDS: POLYETHYLENE GLYCOL 17 GM (MIRALAX) PACK PO SCH (20:28)
[2017-11-12] MEDS: morphine INJ 4 MG/ML 1 ML (VIAL/SYRINGE) IVP PRN (22:49)
[2017-11-13 00:27] VITALS: BP 117/62
[2017-11-13] MEDS: RT-ALBUTEROL/IPRATROPIUM 3 ML (DUONEB) VIAL INH SCH ×6 (02:55→22:32)
[2017-11-13 03:32] LABS: MEAN PLATELET VOLUME 10.5 FL (7.4-10.4); RED BLOOD COUNT 3.54 10^6/uL (4.35-5.85); RED CELL DISTRIBUTION WIDTH 15.8 % (10.0-14.5)
[2017-11-13 03:54] LABS: ALANINE AMINOTRANSFERASE 35 U/L (0-55); ALBUMIN 3.3 GM/DL (3.2-4.5); ALKALINE PHOSPHATASE 68 U/L (40-136); BILIRUBIN,TOTAL 0.3 MG/DL (0.1-1.0); BUN/CREATININE RATIO 17; CALCIUM 10.4 MG/DL (8.5-10.1); CARBON DIOXIDE 36 MMOL/L (21-32); CHLORIDE 94 MMOL/L (98-107); GFR ESTIMATED > 60; GLUCOSE 138 MG/DL (70-105); POTASSIUM 4.4 MMOL/L (3.6-5.0); SODIUM 139 MMOL/L (135-145); TOTAL PROTEIN 6.1 GM/DL (6.4-8.2)
[2017-11-13] MEDS: MULTIVIT W/MINERALS TAB (THERAGRAN M) PO SCH (05:47)
[2017-11-13] MEDS: inSUlin ASPART (NovoLOG) 1 UNIT/0.01 ML (CHARGE PER UNIT) SC SCH ×4 (05:47→20:57)
[2017-11-13] MEDS: UMECLIDINIUM BROMIDE (INCRUSE ELLIPTA) 7'S IH SCH (07:09)
[2017-11-13] MEDS: RT-ADVAIR HFA 115/21 MCG PER PUFF IH SCH ×2 (07:09→18:23)
--- NOTE | 2017-11-13 07:46 | Progress Note (SOAP) ---
Subjective Time Seen by Provider: 07:45 Subjective/Events-last exam Patient ready for surgery today. Patient voicing no complaints Objective Exam Vital Signs Date Time Temp Pulse Resp B/P (MAP) Pulse Ox O2 Delivery O2 Flow Rate FiO2 11/13/17 07:11 92 Nasal Cannula 3.50 11/13/17 02:55 93 Nasal Cannula 3.50 11/13/17 00:27 97.7 65 18 117/62 (80) 98 Nasal Cannula 3.00 11/12/17 22:28 96 Nasal Cannula 3.50 11/12/17 20:29 Nasal Cannula 2.00 11/12/17 18:19 90 Nasal Cannula 3.50 11/12/17 16:20 97.4 69 18 120/60 (80) 100 Nasal Cannula 3.00 11/12/17 14:17 94 Nasal Cannula 3.50 11/12/17 10:26 94 Nasal Cannula 3.50 11/12/17 08:00 Nasal Cannula 2.00 11/12/17 08:00 97.7 80 20 136/78 (97) 97 Nasal Cannula 3.00 I & O 11/13/17 07:00 Intake Total 1900 ml Output Total 1650 ml Balance 250 ml Capillary Refill : Less Than 3 SecondsLess Than 3 Seconds General Appearance: No Apparent Distress, WD/WN Neck: Full Range of Motion, Normal Inspection Respiratory: No Accessory Muscle Use, No Respiratory Distress, Decreased Breath Sounds Cardiovascular: Regular Rate, Rhythm, No Murmur Results Lab Laboratory Tests 11/12/17 10:58: Glucometer 265H 11/12/17 16:16: Glucometer 170H 11/12/17 19:44: Glucometer 265H 11/13/17 03:20: White Blood Count 7.0, Red Blood Count 3.54L, Hemoglobin 9.0L, Hematocrit 31L, Mean Corpuscular Volume 88, Mean Corpuscular Hemoglobin 25, Mean Corpuscular Hemoglobin Concent 29L, Red Cell Distribution Width 15.8H, Platelet Count 310, Mean Platelet Volume 10.5H, Sodium Level 139, Potassium Level 4.4, Chloride Level 94L, Carbon Dioxide Level 36H, Anion Gap 9, Blood Urea Nitrogen 10, Creatinine 0.60, Estimat Glomerular Filtration Rate > 60, BUN/Creatinine Ratio 17, Glucose Level 138H, Calcium Level 10.4H, Total Bilirubin 0.3, Aspartate Amino Transf (AST/SGOT) 18, Alanine Aminotransferase (ALT/SGPT) 35, Alkaline Phosphatase 68, Total Protein 6.1L, Albumin 3.3 11/13/17 05:46: Glucometer 144H Microbiology 10/30/17 Blood Culture - Final, Complete No growth 11/01/17 Gram Stain - Final, Complete 11/01/17 Sputum Culture - Final, Complete Usual/normal fang isolated. 10/30/17 Urine Culture - Final, Complete Nonenterococcus (Chains Cocci) Assessment/Plan Assessment/Plan Assess & Plan/Chief Complaint Right acute ankle fracture Acute on chronic respiratory failure. COPD with acute exacerbation. MICHAEL with obesity. Acute UTI. Diabetes. Hypercapnia. Confusion. . 11/03/16 acute right ankle fracture. Acute and chronic respiratory failure COPD with acute exacerbation. diabetes. uTI. Patient on ventilator Patient respiratory distress Friday nightrea . 11/10/17. acute right ankle fracture. Acute and chronic respiratory failure. COPD with acute exacerbation. Diabetes. UTI. Patient waiting for surgery. . 11/11/17. Right acute ankle fracture. Acute and chronic respiratory failure. COPD with acute exacerbation. MICHAEL. Diabetes. Patient ready for surgery tomorrow. . 11/12/17. Right acute ankle fracture. Acute and chronic respiratory failure. COPD with acute exacerbation. Diabetes. Patient have surgery tomorrow. Patient constipated. Patient is as good as can be expected. . 11/13/17. Acute ankle fracture. Acute and chronic respiratory failure. COPD with acute exacerbation. Diabetes area Ready for surgery today Clinical Quality Measures Admission Status Admission Dx Fractured right ankle. COPD with acute exacerbation. Diabetes. History of CHF. Arthritis. DVT/VTE Risk/Contraindication: Risk Factor Score Per Nursin RFS Level Per Nursing on Admit: 4+=Very High Contraindications-Pharm: Other *list below* Contraindications-Mechi: Other *list below* RADHA HAYES DO Nov 13, 2017 07:46
[2017-11-13] MEDS: HYDROcodone/APAP 5 MG/325 MG (LORTAB) TAB PO PRN ×2 (07:55→16:51)
[2017-11-13] MEDS: PANTOPRAZOLE 40 MG (PROTONIX) TAB PO SCH ×2 (07:56→20:57)
[2017-11-13] MEDS: meTOprolol TARTRATE 50 MG (LOPRESSOR) TAB PO SCH ×2 (07:56→20:56)
[2017-11-13] MEDS: risperiDONE 1 MG (RisperDAL) TAB PO SCH ×2 (07:59→20:57)
[2017-11-13 08:00] VITALS: BP 175/82
[2017-11-13] MEDS: amLODIPine 10 MG (NORVASC) TAB PO SCH ×2 (09:20→16:52)
[2017-11-13] MEDS: SENNA W/DOCUSATE (SENOKOT S) TABLET PO SCH (09:20)
[2017-11-13] MEDS: FLUTICASONE NASAL SPRAY (FLONASE) 16 GM BTL NS SCH (09:20)
[2017-11-13] MEDS: PRAMIPEXOLE 0.5 MG TAB (MIRAPEX) PO SCH (09:20)
[2017-11-13] MEDS: HYDROCHLOROTHIAZIDE 25 MG (HCTZ) TAB PO SCH (09:20)
[2017-11-13] MEDS: GABAPENTIN 300 MG (NEURONTIN) CAP PO SCH ×2 (09:20→20:57)
[2017-11-13] MEDS: ENOXAPARIN 40 MG/0.4 ML (LOVENOX) SYR SC SCH (09:35)
--- NOTE | 2017-11-13 11:19 | Physical Therapy Progress Note ---
Therapy Progress Note Pt to have surgery today. Will plan to see patient post surgery. ÓSCAR GOULD PT Nov 13, 2017 11:19
[2017-11-13] MEDS ORDERED: BUPIVACAINE 0.25% 30 ML (SENSORCAINE) VIAL ONE (11:43)
[2017-11-13] MEDS ORDERED: MIDAZOLAM 2 MG/2 ML (VERSED) VIAL ONE (12:25)
[2017-11-13] MEDS ORDERED: PROPOFOL INJECTION 50 ML IV ONE (12:25)
[2017-11-13] MEDS ORDERED: fentaNYL INJECTION 100 MCG/2 ML AMP ONE (12:26)
[2017-11-13] MEDS ORDERED: ceFAZolin 1,000 MG (ANCEF) VIAL ONE (13:01)
[2017-11-13] MEDS ORDERED: BUP/EPI 0.5% 1:200,000 (SENSORCAINE) 30 ML VIAL ONE ×2 (13:02→14:31)
--- NOTE | 2017-11-13 13:11 | Occ Therapy Progress Note ---
Therapy Progress Note Unable to see pt today due to pt in surgery. Will check on pt. tomorrow. ÓSCAR PARSONS Nov 13, 2017 13:11
[2017-11-13] MEDS ORDERED: ceFAZolin 2 GM IV Premixed 50 ML IV NR (13:30)
[2017-11-13] MEDS ORDERED: proPOfol 200 MG/20 ML (DIPRIVAN) VIAL IV ONE (14:59)
[2017-11-13] MEDS: morphine INJ 10 MG/ML 1ML (SYR OR VIAL) IVP PRN ×3 (15:44→15:55)
[2017-11-13] MEDS ORDERED: ONDANSETRON 4 MG/2 ML (SDV) Z0FRAN IVP PRN (15:45)
--- NOTE | 2017-11-13 15:53 | Progress Note-Post Operative ---
Post-Operative Progess Note Surgeon (s)/Forms Analyst (s) Surgeon ZEESHAN RAMACHANDRAN DO Forms Analyst: Lobo Little PA-C Pre-Operative Diagnosis Trimalleolar fracture/dislocation Right ankle Post-Operative Diagnosis Same Procedure & Operative Findings Date of Procedure 11/13/17 Procedure Performed/Findings Removal of external fixator/ORIF Right ankle fracture Anesthesia Type Spinal Estimated Blood Loss Estimated blood loss (mL): 25 mL Specimens/Packing Specimens Removed None ZEESHAN RAMACHANDRAN DO Nov 13, 2017 15:53
--- NOTE | 2017-11-13 16:11 | Diagnostic Imaging Report ---
CLINICAL INDICATION: Patient with right ankle fracture. EXAM: Total of three limited intraoperative x-rays of the right ankle. COMPARISON: None. FINDINGS AND IMPRESSION: There is open reduction internal fixation with two screws internally fixing the medial malleolar region and sideplate and screws internally fixing the distal fibular region. Ankle mortise and syndesmotic joints are otherwise well aligned. There also appears to be a fracture of the posterior malleolus. Please see surgeon's report for more detail. Fluoroscopy was provided for surgeons and a total of 69.2 seconds and 2.53 mGy was provided. Dictated by: Dictated on workstation # [id number]
[2017-11-13 16:30] VITALS: BP 185/90
[2017-11-13] MEDS ORDERED: MEPERIDINE (DEMEROL) INJ 50 MG/ML IVP NR (17:07)
[2017-11-13] MEDS: inSUlin DETERMIR 1 UNIT/0.01 ML (LEVEMIR) CHARGE PER UNIT SQ SCH (18:01)
[2017-11-13 19:56] VITALS: BP 144/80
[2017-11-13] MEDS: ATORVASTATIN 10 MG (LIPITOR) TABLET PO SCH (20:56)
[2017-11-13] MEDS: SERTRALINE 50 MG (ZOLOFT) TABLET PO SCH (20:56)
[2017-11-13] MEDS: KCL 10 MEQ TAB (MICRO K) PO SCH (20:57)
[2017-11-13] MEDS: POLYETHYLENE GLYCOL 17 GM (MIRALAX) PACK PO SCH (20:57)
[2017-11-14] VITALS: BP 146/67
[2017-11-14] MEDS: RT-ALBUTEROL/IPRATROPIUM 3 ML (DUONEB) VIAL INH SCH ×6 (02:58→21:30)
[2017-11-14] MEDS: ACETAMINOPHEN 325 MG TABLET/CAPLET (TYLENOL) PO PRN (03:50)
[2017-11-14 05:46] LABS: HEMOGLOBIN 8.3 G/DL (11.5-16.0); MEAN PLATELET VOLUME 10.6 FL (7.4-10.4); RED BLOOD COUNT 3.25 10^6/uL (4.35-5.85); RED CELL DISTRIBUTION WIDTH 15.6 % (10.0-14.5); WHITE BLOOD COUNT 8.7 10^3/uL (4.3-11.0)
[2017-11-14 06:03] LABS: BUN/CREATININE RATIO 13; CALCIUM 9.8 MG/DL (8.5-10.1); CARBON DIOXIDE 33 MMOL/L (21-32); CHLORIDE 95 MMOL/L (98-107); CREATININE SERUM 0.55 MG/DL (0.60-1.30); GFR ESTIMATED > 60; GLUCOSE 197 MG/DL (70-105); POTASSIUM 4.3 MMOL/L (3.6-5.0); SODIUM 138 MMOL/L (135-145)
[2017-11-14] MEDS: inSUlin ASPART (NovoLOG) 1 UNIT/0.01 ML (CHARGE PER UNIT) SC SCH ×4 (06:21→21:44)
[2017-11-14] MEDS: MULTIVIT W/MINERALS TAB (THERAGRAN M) PO SCH (06:27)
[2017-11-14] MEDS: HYDROcodone/APAP 5 MG/325 MG (LORTAB) TAB PO PRN ×3 (06:29→16:49)
[2017-11-14] MEDS: RT-ADVAIR HFA 115/21 MCG PER PUFF IH SCH ×2 (07:36→21:29)
[2017-11-14] MEDS: UMECLIDINIUM BROMIDE (INCRUSE ELLIPTA) 7'S IH SCH (07:42)
[2017-11-14 08:00] VITALS: BP 160/72
--- NOTE | 2017-11-14 08:34 | Progress Note (SOAP) ---
Subjective Time Seen by Provider: 08:33 Subjective/Events-last exam Patient feeling good. Patient had surgery yesterday. Patient breathing good for her. Sugars good. Objective Exam Vital Signs Date Time Temp Pulse Resp B/P (MAP) Pulse Ox O2 Delivery O2 Flow Rate FiO2 11/14/17 07:30 91 High Flow N/C 6.00 11/14/17 04:20 99.6 11/14/17 03:50 100.4 11/14/17 00:00 99.5 94 20 146/67 (93) 98 Nasal Cannula 6.00 11/13/17 22:35 94 Nasal Cannula 6.00 11/13/17 21:20 113 97 Nasal Cannula 6.00 11/13/17 20:56 Nasal Cannula 5.50 11/13/17 19:56 99.2 120 22 144/80 (101) 93 Nasal Cannula 6.00 11/13/17 18:26 98 Nasal Cannula 6.00 11/13/17 16:30 99.1 113 22 185/90 (121) 90 Nasal Cannula 5.00 11/13/17 11:05 94 Nasal Cannula 3.50 I & O 11/14/17 07:00 Intake Total 1635 ml Output Total 2750 ml Balance -1115 ml Capillary Refill : Less Than 3 SecondsLess Than 3 Seconds General Appearance: No Apparent Distress, WD/WN HEENT: Normal ENT Inspection Neck: Full Range of Motion, Normal Inspection Results Lab Laboratory Tests 11/13/17 10:53: Glucometer 171H 11/13/17 15:38: Glucometer 139H 11/13/17 16:40: Glucometer 154H 11/13/17 20:42: Glucometer 228H 11/14/17 05:30: White Blood Count 8.7, Red Blood Count 3.25L, Hemoglobin 8.3L, Hematocrit 28L, Mean Corpuscular Volume 85, Mean Corpuscular Hemoglobin 26, Mean Corpuscular Hemoglobin Concent 30L, Red Cell Distribution Width 15.6H, Platelet Count 315, Mean Platelet Volume 10.6H, Sodium Level 138, Potassium Level 4.3, Chloride Level 95L, Carbon Dioxide Level 33H, Anion Gap 10, Blood Urea Nitrogen 7, Creatinine 0.55L, Estimat Glomerular Filtration Rate > 60, BUN/Creatinine Ratio 13, Glucose Level 197H, Calcium Level 9.8 11/14/17 06:05: Glucometer 198H Microbiology 10/30/17 Blood Culture - Final, Complete No growth 11/01/17 Gram Stain - Final, Complete 11/01/17 Sputum Culture - Final, Complete Usual/normal fang isolated. 10/30/17 Urine Culture - Final, Complete Nonenterococcus (Chains Cocci) Assessment/Plan Assessment/Plan Assess & Plan/Chief Complaint Right acute ankle fracture Acute on chronic respiratory failure. COPD with acute exacerbation. MICHAEL with obesity. Acute UTI. Diabetes. Hypercapnia. Confusion. . 11/03/16 acute right ankle fracture. Acute and chronic respiratory failure COPD with acute exacerbation. diabetes. uTI. Patient on ventilator Patient respiratory distress Friday nightrea . 11/10/17. acute right ankle fracture. Acute and chronic respiratory failure. COPD with acute exacerbation. Diabetes. UTI. Patient waiting for surgery. . 11/11/17. Right acute ankle fracture. Acute and chronic respiratory failure. COPD with acute exacerbation. MICHAEL. Diabetes. Patient ready for surgery tomorrow. . 11/12/17. Right acute ankle fracture. Acute and chronic respiratory failure. COPD with acute exacerbation. Diabetes. Patient have surgery tomorrow. Patient constipated. Patient is as good as can be expected. . 11/13/17. Acute ankle fracture. Acute and chronic respiratory failure. COPD with acute exacerbation. Diabetes area Ready for surgery today. . 11/14/17. Acute ankle fracture. Had surgery yesterday. Acute and chronic respiratory failure. COPD with acute exacerbation. Diabetes better Clinical Quality Measures Admission Status Admission Dx Fractured right ankle. COPD with acute exacerbation. Diabetes. History of CHF. Arthritis. DVT/VTE Risk/Contraindication: Risk Factor Score Per Nursin RFS Level Per Nursing on Admit: 4+=Very High Contraindications-Pharm: Other *list below* Contraindications-Mechi: Other *list below* RADHA HAYES DO Nov 14, 2017 08:34
[2017-11-14] MEDS: risperiDONE 1 MG (RisperDAL) TAB PO SCH ×2 (08:49→21:43)
[2017-11-14] MEDS: SENNA W/DOCUSATE (SENOKOT S) TABLET PO SCH (08:49)
[2017-11-14] MEDS: ENOXAPARIN 40 MG/0.4 ML (LOVENOX) SYR SC SCH (08:49)
[2017-11-14] MEDS: meTOprolol TARTRATE 50 MG (LOPRESSOR) TAB PO SCH ×2 (08:49→21:43)
[2017-11-14] MEDS: GABAPENTIN 300 MG (NEURONTIN) CAP PO SCH ×2 (08:49→21:43)
[2017-11-14] MEDS: amLODIPine 10 MG (NORVASC) TAB PO SCH (08:49)
[2017-11-14] MEDS: inSUlin DETERMIR 1 UNIT/0.01 ML (LEVEMIR) CHARGE PER UNIT SQ SCH (08:50)
[2017-11-14] MEDS: FLUTICASONE NASAL SPRAY (FLONASE) 16 GM BTL NS SCH (08:50)
[2017-11-14] MEDS: HYDROCHLOROTHIAZIDE 25 MG (HCTZ) TAB PO SCH (08:58)
[2017-11-14] MEDS: PRAMIPEXOLE 0.5 MG TAB (MIRAPEX) PO SCH (08:58)
[2017-11-14] MEDS: PANTOPRAZOLE 40 MG (PROTONIX) TAB PO SCH ×2 (08:59→21:43)
[2017-11-14] MEDS: morphine INJ 4 MG/ML 1 ML (VIAL/SYRINGE) IVP PRN ×2 (09:05→21:55)
--- NOTE | 2017-11-14 11:35 | Physical Therapy Daily Note ---
PT Daily Note-Current Subjective Pt agreeable to PT. Pain Numeric Pain Scale: 7 Location: Right Location Body Site: Ankle Comment: FLACC Mental Status Patient Orientation: Person, Confused LImited participation with therapy this date Transfers Functional [place] Measure 0=Not Assessed/NA 4=Minimal Assistance 1=Total Assistance 5=Supervision or Setup 2=Maximal Assistance 6=Modified [place] 3=Moderate Assistance 7=Complete IndependenceIRFPAI Quality Coding Scale 6 Independent with activity with or without an assistive device 5 Patient requires set up or clean up by helper. Patient completes activity by themselves 4 Supervision or touching assist (CGA). [place] provide cues , steadying assist 3 The helper provides less than half the effort to complete the activity 2 The helper provides more than half the effort to complete the activity 1 Dependent. The helper does all the effort to complete an activity 7 Patient refused to complete or attempt activity 9 The patient did not perform the activity before the current illness or injury 88 Not attempted due to Medical conditions or safety concerns Transfers (B, C, W/C) (FIM): 1 Supine to/from Sit: 1 Sit to/from Stand: 1 Bed to/from Chair: 1 Pt requires assist of 2 for all bed mobility and transfers. Pt unable to follow cues effectively enough to assist with transfer but she does not resist. Weight Bearing Right Lower Extremity: Right Non Weight Bearing (strict per Dr. T[place]) Left Lower Extremity: Left Full Weight Bearing CAM boot right LE Assessment Dependent for all bed mobility and transfers at this time. She seems a bit confused with difficulty following cues, may be medication related. She will benefit from continued skilled PT to work on functional strength and mobility to allow her to return home as before. Her PLOF was mod indep. Feel her rehab will be a long process and extended care at a LTC facility is likely necessary. POC and goals remain the same as at evaluation and now since recent surgery. Pt remains strict NWB right LE. PT Short Term Goals Short Term Goals Transfers (B,C,W/C) (FIM): 3 PT Alf Goals Alf Goals PT Change Management Manager Goals Time Frame: Dec 05, 2017 Transfers (B,C,W/C) (FIM): 3 PT Plan Problem List Problem List: Activity Tolerance, Balance, Transfer, Bed Mobility Treatment/Plan Treatment Plan: Continue Plan of Care Treatment Plan: Bed Mobility, Education, Functional Activity Lio, Functional Strength, Safety, Therapeutic Exercise, Transfers Treatment Duration: Dec 05, 2017 Frequency: 6 times per week Estimated Hrs Per Day: .25 hour per day Patient and/or Family Agrees t: Yes Safety Risks/Education Patient Education: Transfer Techniques, Safety Issues Teaching Recipient: Patient Teaching Methods: Demonstration Response to Teaching: Reinforcement Needed Discharge Recommendations Therapy D/C Recommendations: Assisted (TCU/NH) Time/GCodes Time In: 1055 Time Out: 1120 Total Billed Treatment Time: 25 Total Billed Treatment visit FA 25 ÓSCAR GOULD PT Nov 14, 2017 11:35
--- NOTE | 2017-11-14 11:42 | Occ Therapy Progress Note ---
Therapy Progress Note Attempted to see pt at 1130. Initially pt would not acknowledge CHUN when spoken to. Nrsg present in room and stated that pt just had pain meds. Pt did open eyes once while nrsg was taking blood sugar. Will check on pt at later time. ÓSCAR PARSONS Nov 14, 2017 11:42
--- NOTE | 2017-11-14 13:24 | Progress Note-Standard ---
Standard Progress Note Progress Notes/Assess & Plan Date Seen by Provider: Nov 14, 2017 Time Seen by Provider: 13:05 Progress/Assessment & Plan Pt ERIC, pain controlled, no overnight events, no current complaints. VSSAF Labs: Hb at 8.3 LLE: CAM boot in place, all dressings c/d/i, foot well perfused, motor/ sensation grossly intact, no increased pain with AROM/PROM Abd soft/NT Breathing well on O2 NC S/P R/O ex-fix/ORIF Right ankle fracture, POD #1 Orthopedically stable Pt with chronic anemia, will continue to monitor Continue strict NWB LLE for minimum of 8 weeks Contiue to mobilize OOB with PT/OT daily as able Lovenox/SCDs for VTE prophylaxis Current pain control regimen D/C planning: OK for d/c to rehab from ortho standpoint. Focused Exam Respiratory: No Accessory Muscle Use, No Respiratory Distress Cardiovascular: Regular Rate, Rhythm, Normal Peripheral Pulses Capillary Refill: Less Than 3 Seconds Peripheral Pulses: 2+ Dorsalis Pedis (R), 2+ Left Dors-Pedis (L) Skin: normal color, warm/dry ZEESHAN RAMACHANDRAN DO Nov 14, 2017 13:24
--- NOTE | 2017-11-14 14:38 | Physical Therapy Daily Note ---
PT Daily Note-Current Subjective Ready to return to bed. Transfers Functional [place] Measure 0=Not Assessed/NA 4=Minimal Assistance 1=Total Assistance 5=Supervision or Setup 2=Maximal Assistance 6=Modified [place] 3=Moderate Assistance 7=Complete IndependenceIRFPAI Quality Coding Scale 6 Independent with activity with or without an assistive device 5 Patient requires set up or clean up by helper. Patient completes activity by themselves 4 Supervision or touching assist (CGA). [place] provide cues , steadying assist 3 The helper provides less than half the effort to complete the activity 2 The helper provides more than half the effort to complete the activity 1 Dependent. The helper does all the effort to complete an activity 7 Patient refused to complete or attempt activity 9 The patient did not perform the activity before the current illness or injury 88 Not attempted due to Medical conditions or safety concerns Weight Bearing Right Lower Extremity: Right Non Weight Bearing (strict per Dr. Tipton) Left Lower Extremity: Left Full Weight Bearing CAM boot right LE Treatments Attempted sit to stand with FWW without success. Sit to stand with assist of 2 and assist of 2 to transfer to bed and to supine. In bed post treatment with needs met. Assessment Pt interacts limited with therapy and is currently total assist with transfers. PT Short Term Goals Short Term Goals Transfers (B,C,W/C) (FIM): 3 PT Test Desk Trouble Locator Goals Mcfp Goals PT Test Desk Trouble Locator Goals Time Frame: Dec 05, 2017 Transfers (B,C,W/C) (FIM): 3 PT Plan Problem List Problem List: Activity Tolerance, Functional Strength, Safety, Gait, Transfer, Bed Mobility Treatment/Plan Treatment Plan: Continue Plan of Care Treatment Plan: Bed Mobility, Education, Functional Activity Lio, Functional Strength, Safety, Therapeutic Exercise, Transfers Treatment Duration: Dec 05, 2017 Frequency: 6 times per week Estimated Hrs Per Day: .25 hour per day Patient and/or Family Agrees t: Yes Safety Risks/Education Patient Education: Safety Issues Teaching Recipient: Patient Teaching Methods: Discussion Response to Teaching: Reinforcement Needed Discharge Recommendations Therapy D/C Recommendations: [facility] (TCU/NH) Time/GCodes Time In: 1230 Time Out: 1253 Total Billed Treatment Time: 23 Total Billed Treatment visit FA 23 ÓSCAR GOULD PT Nov 14, 2017 14:38
--- NOTE | 2017-11-14 15:25 | Occupational Ther Daily Note ---
OT Current Status-Daily Note Subjective Pt dozing, sitting in recliner. Pt agreed to work with OT/PT to transfer back to bed. Pt had difficulty keeping eyes open. Not sure if it was fatigue or ignoring therapist's. Mental Status/Objective Patient Orientation: Person, Place, Time, Situation Functional [place] Measure 0=Not Assessed/NA 4=Minimal Assistance 1=Total Assistance 5=Supervision or Setup 2=Maximal Assistance 6=Modified [place] 3=Moderate Assistance 7=Complete [place] Other Treatment PT/OT co-treated for skilled care, pt dependent for transfers. Attempted sit to stand with FWW without success. Sit to stand with assist of 2 and assist of 2 to transfer to bed and to supine. After therapy, pt lying in bed with call light/phone in reach. All needs met in room. OT Short Term Goals Short Term Goals Time Frame: Nov 20, 2017 Eating(FIM): 3 Grooming(FIM): 3 Bathing(FIM): 3 Upper Body Dressing(FIM): 4 Lower Body Dressing(FIM): 3 Toileting(FIM): 3 Transfers (B,C,W/C) (FIM): 3 Toilet/Commode Transfer(FIM): 3 Additional Short Term Goals: 1-Demonstrate ADL Tasks, 2-Verbalize Understanding , 3-ImproveStrength/Lio 1=Demonstrate adherence to instructed precautions during ADL tasks. 2=Patient will verbalize/demonstrate understanding of assistive devices/ modifications for ADL. 3=Patient will improve strength/tolerance for activity to enable patient to perform ADL's. OT Carpet Cleaner Goals Carpet Cleaner Goals Time Frame: Dec 04, 2017 Eating (FIM): 5 Grooming(FIM): 5 Bathing(FIM): 4 Upper Body Dressing(FIM): 5 Lower Body Dressing(FIM): 5 Toileting(FIM): 5 Transfers (B,C,W/C) (FIM): 5 Toilet/Commode Transfer(FIM): 5 Shower Transfer(FIM): 4 Additional Goals: 1-Demonstrate ADL Tasks, 2-Verbalize Understanding, 3- ImproveStrength/Lio 1=Demonstrate adherence to instructed precautions during ADL tasks. 2=Patient will verbalize/demonstrate understanding of assistive devices/ modifications for ADL. 3=Patient will improve strength/tolerance for activity to enable patient to perform ADL's. OT Education/Plan Discharge Recommendations Plan/Recommendations: Continue POC Treatment Plan/Plan of Care Patient would benefit from OT for education, treatment and training to promote independence in ADL's, mobility, safety and/or upper extremity function for ADL' s. Plan of Care: ADL Retraining, Functional Mobility Treatment Duration: Dec 04, 2017 Frequency: 5 times per week Estimated Hrs Per Day: .5 hour per day Agreement: Yes Rehab Potential: Guarded Time/GCodes Start Time: 12:30 Stop Time: 12:53 Total Time Billed (hr/min): 23 Billed Treatment Time 1 visit-FA 2 (23 min) ÓSCAR PARSONS Nov 14, 2017 15:25
[2017-11-14 16:10] VITALS: BP 136/62
[2017-11-14] MEDS: POLYETHYLENE GLYCOL 17 GM (MIRALAX) PACK PO SCH (21:43)
[2017-11-14] MEDS: KCL 10 MEQ TAB (MICRO K) PO SCH (21:43)
[2017-11-14] MEDS: SERTRALINE 50 MG (ZOLOFT) TABLET PO SCH (21:43)
[2017-11-14] MEDS: ATORVASTATIN 10 MG (LIPITOR) TABLET PO SCH (21:43)
[2017-11-14] MEDS: HALOPERIDOL 5 MG/ML (HALDOL) AMP IV PRN (22:21)
[2017-11-14 22:55] VITALS: BP 136/61
[2017-11-15] VITALS: BP 136/61
[2017-11-15] MEDS ORDERED: HALOPERIDOL 5 MG/ML (HALDOL) AMP IM PRN (00:15)
[2017-11-15] MEDS ORDERED: LORazepam INJ 2 MG/ML (ATIVAN) VIAL IVP PRN (00:15)
[2017-11-15] MEDS: RT-ALBUTEROL/IPRATROPIUM 3 ML (DUONEB) VIAL INH SCH ×6 (01:43→20:54)
[2017-11-15 04:50] VITALS: BP 119/59
[2017-11-15 05:06] LABS: BASOPHILS % (AUTO) 0 % (0-10); EOSINOPHILS # (AUTO) 0.1 10^3/uL (0.0-0.3); EOSINOPHILS % (AUTO) 1 % (0-10); HEMATOCRIT 26 % (35-52); HEMOGLOBIN 7.7 G/DL (11.5-16.0); LYMPHOCYTES # (AUTO) 0.8 X 10^3 (1.0-4.0); LYMPHOCYTES % (AUTO) 12 % (12-44); MEAN CORPUSCULAR HEMOGLOBIN 25 PG (25-34); MEAN CORPUSCULAR HGB CONC 30 G/DL (32-36); MEAN CORPUSCULAR VOLUME 84 FL (80-99); MEAN PLATELET VOLUME 10.9 FL (7.4-10.4); MONOCYTES # (AUTO) 0.8 X 10^3 (0.0-1.0); MONOCYTES % (AUTO) 12 % (0-12); NEUTROPHILS % (AUTO) 74 % (42-75); PLATELET COUNT 310 10^3/uL (130-400); RED BLOOD COUNT 3.05 10^6/uL (4.35-5.85); RED CELL DISTRIBUTION WIDTH 16.4 % (10.0-14.5); WHITE BLOOD COUNT 6.7 10^3/uL (4.3-11.0)
[2017-11-15] MEDS: inSUlin ASPART (NovoLOG) 1 UNIT/0.01 ML (CHARGE PER UNIT) SC SCH ×4 (05:54→20:34)
[2017-11-15] MEDS: HYDROcodone/APAP 5 MG/325 MG (LORTAB) TAB PO PRN ×3 (06:13→20:33)
[2017-11-15] MEDS: MULTIVIT W/MINERALS TAB (THERAGRAN M) PO SCH (06:13)
[2017-11-15 07:05] LABS: ABG BASE EXCESS 11.3 MMOL/L (-2.5-2.5); ABG OXYGEN SATURATION 98 % (94-100); ABG PCO2 59 MMHG (35-45); ABG PH 7.41 (7.37-7.43); ABG PO2 100 MMHG (79-93); ABG TCO2 38.2 MMOL/L (21.0-31.0)
[2017-11-15 07:06] LABS: ALLENS TEST YES-POS; INSPIRED O2 6L; PATIENT TEMP 98.9; VENTILATOR NO
[2017-11-15 07:21] LABS: ALANINE AMINOTRANSFERASE 25 U/L (0-55); ALBUMIN 3.1 GM/DL (3.2-4.5); ALKALINE PHOSPHATASE 74 U/L (40-136); BILIRUBIN,TOTAL 0.4 MG/DL (0.1-1.0); BUN/CREATININE RATIO 14; CALCIUM 10.2 MG/DL (8.5-10.1); CARBON DIOXIDE 33 MMOL/L (21-32); CHLORIDE 96 MMOL/L (98-107); CREATININE SERUM 0.58 MG/DL (0.60-1.30); GFR ESTIMATED > 60; GLUCOSE 179 MG/DL (70-105); POTASSIUM 4.2 MMOL/L (3.6-5.0); SODIUM 138 MMOL/L (135-145); TOTAL PROTEIN 5.9 GM/DL (6.4-8.2)
--- NOTE | 2017-11-15 07:39 | Diagnostic Imaging Report ---
INDICATION: COPD. FINDINGS: Upright portable chest shows cardiomegaly with normal vascularity. The lungs are clear. There is no effusion or pneumothorax. There is no bony abnormality. There are degenerative changes of the right shoulder. IMPRESSION: No acute abnormality is seen with no significant change from 11/11/2017. Dictated by: Dictated on workstation # [id number]
[2017-11-15 08:00] VITALS: BP 132/83
[2017-11-15] MEDS: ENOXAPARIN 40 MG/0.4 ML (LOVENOX) SYR SC SCH (09:50)
[2017-11-15] MEDS: RT-ADVAIR HFA 115/21 MCG PER PUFF IH SCH ×2 (09:53→20:54)
[2017-11-15] MEDS: UMECLIDINIUM BROMIDE (INCRUSE ELLIPTA) 7'S IH SCH (09:53)
[2017-11-15] MEDS: FLUTICASONE NASAL SPRAY (FLONASE) 16 GM BTL NS SCH (10:57)
[2017-11-15] MEDS: meTOprolol TARTRATE 50 MG (LOPRESSOR) TAB PO SCH ×2 (10:57→20:33)
[2017-11-15] MEDS: HYDROCHLOROTHIAZIDE 25 MG (HCTZ) TAB PO SCH (10:57)
[2017-11-15] MEDS: PRAMIPEXOLE 0.5 MG TAB (MIRAPEX) PO SCH (10:58)
[2017-11-15] MEDS: amLODIPine 10 MG (NORVASC) TAB PO SCH (10:58)
[2017-11-15] MEDS: GABAPENTIN 300 MG (NEURONTIN) CAP PO SCH ×2 (10:58→20:33)
[2017-11-15] MEDS: PANTOPRAZOLE 40 MG (PROTONIX) TAB PO SCH ×2 (10:59→20:33)
[2017-11-15] MEDS: risperiDONE 1 MG (RisperDAL) TAB PO SCH ×2 (10:59→20:33)
[2017-11-15] MEDS: SENNA W/DOCUSATE (SENOKOT S) TABLET PO SCH (11:00)
--- NOTE | 2017-11-15 12:25 | Physical Therapy Progress Note ---
Therapy Progress Note Per nursing, pt. had a bad night and will only briefly open her eyes. Pt. on BiPap and requests no therapy at this time due to poor respiration. We will check patient status on 11/17/17. EDIN BARRON PT Nov 15, 2017 12:25
--- NOTE | 2017-11-15 13:40 | Progress Note-Standard ---
Standard Progress Note Progress Notes/Assess & Plan Date Seen 11/15/17 Time Seen by Provider: 10:30 Assess & Plan/Chief Complaint Patient had some issues with tachypnea and placed on BiPAP after Haldol and Ativan were both given as they had been given in the ICU for her to maintain on BiPAP after extubation ABG and chest x-ray and all the rest of the labs look stable today even though she remains lethargic Hemoglobin 7.7 but has had 2 surgeries since admission Left ankle fracture was just repaired 2 days ago uncomplicated Unsure of the recovery potential considering she has had such significant severe acute medical issues while hospitalized including intubation and critical illness Patient's sleeping during my interview and exam No fever, vital signs stable, sleepy, on BiPAP Regular rate and rhythm, diminished breath sounds all herrera no tachypnea No edema Laboratory Tests 11/15/17 05:00 11/15/17 06:50 CXR no changes Assessment: Acute ankle fracture s/p repair 2 days ago Acute and chronic respiratory failure now on biPAP and stable ABG and CXR COPD with acute exacerbation requiring ICU stay last week Diabetes Chronic debility Anemia of acute illnesses and surgery Plan: Monitor closely BiPAP O2 Nebs Current meds reviewed and continued Check labs in am Labs Laboratory Tests 11/14/17 05:30 11/15/17 05:00 11/15/17 06:50 EMILY CALIX DO Nov 15, 2017 13:40
[2017-11-15] MEDS: inSUlin DETERMIR 1 UNIT/0.01 ML (LEVEMIR) CHARGE PER UNIT SQ SCH (13:51)
[2017-11-15 16:15] VITALS: BP 127/76
[2017-11-15] MEDS: ATORVASTATIN 10 MG (LIPITOR) TABLET PO SCH (20:33)
[2017-11-15] MEDS: KCL 10 MEQ TAB (MICRO K) PO SCH (20:33)
[2017-11-15] MEDS: POLYETHYLENE GLYCOL 17 GM (MIRALAX) PACK PO SCH (20:33)
[2017-11-15] MEDS: SERTRALINE 50 MG (ZOLOFT) TABLET PO SCH (20:33)
[2017-11-16] VITALS: BP 143/69
[2017-11-16] MEDS: RT-ALBUTEROL/IPRATROPIUM 3 ML (DUONEB) VIAL INH SCH ×6 (02:22→21:57)
[2017-11-16] MEDS: inSUlin ASPART (NovoLOG) 1 UNIT/0.01 ML (CHARGE PER UNIT) SC SCH ×4 (05:37→20:29)
[2017-11-16] MEDS: MULTIVIT W/MINERALS TAB (THERAGRAN M) PO SCH (05:44)
[2017-11-16] MEDS: RT-ADVAIR HFA 115/21 MCG PER PUFF IH SCH ×2 (07:15→18:34)
[2017-11-16 07:16] LABS: BASOPHILS % (AUTO) 0 % (0-10); EOSINOPHILS # (AUTO) 0.1 10^3/uL (0.0-0.3); EOSINOPHILS % (AUTO) 2 % (0-10); HEMATOCRIT 29 % (35-52); HEMOGLOBIN 8.5 G/DL (11.5-16.0); LYMPHOCYTES # (AUTO) 0.8 X 10^3 (1.0-4.0); LYMPHOCYTES % (AUTO) 14 % (12-44); MEAN CORPUSCULAR HEMOGLOBIN 25 PG (25-34); MEAN CORPUSCULAR HGB CONC 29 G/DL (32-36); MEAN CORPUSCULAR VOLUME 85 FL (80-99); MEAN PLATELET VOLUME 10.7 FL (7.4-10.4); MONOCYTES # (AUTO) 0.5 X 10^3 (0.0-1.0); MONOCYTES % (AUTO) 8 % (0-12); NEUTROPHILS # (AUTO) 4.3 X 10^3 (1.8-7.8); NEUTROPHILS % (AUTO) 76 % (42-75); PLATELET COUNT 326 10^3/uL (130-400); RED BLOOD COUNT 3.42 10^6/uL (4.35-5.85); RED CELL DISTRIBUTION WIDTH 15.6 % (10.0-14.5); WHITE BLOOD COUNT 5.7 10^3/uL (4.3-11.0)
[2017-11-16] MEDS: UMECLIDINIUM BROMIDE (INCRUSE ELLIPTA) 7'S IH SCH (07:16)
[2017-11-16 07:34] LABS: BUN/CREATININE RATIO 14; CALCIUM 10.4 MG/DL (8.5-10.1); CARBON DIOXIDE 32 MMOL/L (21-32); CHLORIDE 97 MMOL/L (98-107); CREATININE SERUM 0.56 MG/DL (0.60-1.30); GFR ESTIMATED > 60; GLUCOSE 104 MG/DL (70-105); POTASSIUM 4.2 MMOL/L (3.6-5.0); SODIUM 140 MMOL/L (135-145)
[2017-11-16 08:00] VITALS: BP 166/92
[2017-11-16] MEDS: FLUTICASONE NASAL SPRAY (FLONASE) 16 GM BTL NS SCH (09:37)
[2017-11-16] MEDS: ENOXAPARIN 40 MG/0.4 ML (LOVENOX) SYR SC SCH (09:37)
[2017-11-16] MEDS: risperiDONE 1 MG (RisperDAL) TAB PO SCH ×2 (09:38→20:47)
[2017-11-16] MEDS: PRAMIPEXOLE 0.5 MG TAB (MIRAPEX) PO SCH (09:38)
[2017-11-16] MEDS: amLODIPine 10 MG (NORVASC) TAB PO SCH (09:38)
[2017-11-16] MEDS: GABAPENTIN 300 MG (NEURONTIN) CAP PO SCH ×2 (09:38→20:47)
[2017-11-16] MEDS: SENNA W/DOCUSATE (SENOKOT S) TABLET PO SCH (09:38)
[2017-11-16] MEDS: HYDROCHLOROTHIAZIDE 25 MG (HCTZ) TAB PO SCH (09:38)
[2017-11-16] MEDS: PANTOPRAZOLE 40 MG (PROTONIX) TAB PO SCH ×2 (09:38→20:47)
[2017-11-16] MEDS: meTOprolol TARTRATE 50 MG (LOPRESSOR) TAB PO SCH ×2 (09:38→20:47)
[2017-11-16] MEDS: HYDROcodone/APAP 5 MG/325 MG (LORTAB) TAB PO PRN ×2 (09:45→20:47)
[2017-11-16] MEDS: inSUlin DETERMIR 1 UNIT/0.01 ML (LEVEMIR) CHARGE PER UNIT SQ SCH (12:06)
--- NOTE | 2017-11-16 13:27 | Progress Note-Standard ---
Standard Progress Note Progress Notes/Assess & Plan Date Seen 11/16/17 Time Seen by Provider: 12:30 Assess & Plan/Chief Complaint Patient much more alert today and eating lunch and visiting with her Now on 3.5 L of oxygen by nasal cannula and off BiPAP Overall patient feels good and labs are stable Denies any pain Wagner catheter in place due to immobile state Small bowel movement this morning [facility] placement tomorrow Checked meds and labs No fever, vital signs stable, alert, up in chair, eating lunch and feeding herself Regular rate and rhythm, diminished breath sounds all herrera no tachypnea No edema Laboratory Tests 11/16/17 06:38 Assessment: Acute ankle fracture s/p repair 2 days ago but 17th day in hospital going to [place] tomorrow Acute and chronic respiratory failure s/p biPAP and stable ABG and CXR now on NC COPD with acute exacerbation requiring ICU stay last week Diabetes Chronic debility Anemia of acute illnesses and surgery Plan: Patient much improved today NC O2 PT/OT Labs Laboratory Tests 11/15/17 05:00 11/15/17 06:50 11/16/17 06:38 EMILY CALIX DO Nov 16, 2017 13:27
[2017-11-16 16:57] VITALS: BP 146/68
--- NOTE | 2017-11-16 19:28 | Progress Note (SOAP) ---
Subjective Date Seen by Provider: Nov 16, 2017 Time Seen by Provider: 09:00 Subjective/Events-last exam POD #4, s/p right ankle trimalleolar ORIF VSS, afebrile No complaints at this time. Review of Systems General: No Chills Pulmonary: No Cough Gastrointestinal: No: Nausea Musculoskeletal: foot pain, No: back pain Neurological: No: Weakness, Numbness Objective Exam Vital Signs Date Time Temp Pulse Resp B/P (MAP) Pulse Ox O2 Delivery O2 Flow Rate FiO2 11/16/17 18:58 High Flow N/C 3.50 11/16/17 18:41 75 27 98 30.00 11/16/17 18:34 98 High Flow N/C 3.50 11/16/17 16:57 98.3 86 20 146/68 (94) 97 Nasal Cannula 3.50 11/16/17 14:57 95 High Flow N/C 3.50 11/16/17 08:00 98.4 92 18 166/92 (116) 96 Nasal Cannula 3.50 11/16/17 07:30 Nasal Cannula 3.50 11/16/17 07:19 94 High Flow N/C 3.50 11/16/17 02:23 95 High Flow N/C 3.50 11/16/17 00:00 97.3 67 18 143/69 (93) 97 Nasal Cannula 3.50 11/15/17 21:01 High Flow N/C 3.50 11/15/17 20:54 High Flow N/C 3.50 11/15/17 20:00 Nasal Cannula 3.50 I & O 11/16/17 07:00 Intake Total 1260 ml Output Total 1250 ml Balance 10 ml Capillary Refill : Less Than 3 SecondsLess Than 3 Seconds General Appearance: No Apparent Distress Respiratory: No Respiratory Distress Cardiovascular: Normal Peripheral Pulses Extremity: No Calf Tenderness, No No Pedal Edema, Other (Able to move toes on right, sensation intact. Foot and ankle wrapped at this time. ) Neurologic/Psychiatric: Oriented x3, No Motor/Sensory Deficits, Normal Mood/ Affect, decorative engraver II-XII Norm as Tested Skin: Normal Color Lymphatic: No Adenopathy Results Lab Laboratory Tests 11/15/17 20:34: Glucometer 158H 11/16/17 05:28: Glucometer 116H 11/16/17 06:38: White Blood Count 5.7, Red Blood Count 3.42L, Hemoglobin 8.5L, Hematocrit 29L, Mean Corpuscular Volume 85, Mean Corpuscular Hemoglobin 25, Mean Corpuscular Hemoglobin Concent 29L, Red Cell Distribution Width 15.6H, Platelet Count 326, Mean Platelet Volume 10.7H, Neutrophils (%) (Auto) 76H, Lymphocytes (%) (Auto) 14, Monocytes (%) (Auto) 8, Eosinophils (%) (Auto) 2, Basophils (%) (Auto) 0, Neutrophils # (Auto) 4.3, Lymphocytes # (Auto) 0.8L, Monocytes # (Auto) 0.5, Eosinophils # (Auto) 0.1, Basophils # (Auto) 0.0, Sodium Level 140, Potassium Level 4.2, Chloride Level 97L, Carbon Dioxide Level 32, Anion Gap 11, Blood Urea Nitrogen 8, Creatinine 0.56L, Estimat Glomerular Filtration Rate > 60, BUN/ Creatinine Ratio 14, Glucose Level 104, Calcium Level 10.4H 11/16/17 11:24: Glucometer 177H 11/16/17 16:30: Glucometer 193H Microbiology 10/30/17 Blood Culture - Final, Complete No growth 11/01/17 Gram Stain - Final, Complete 11/01/17 Sputum Culture - Final, Complete Usual/normal fang isolated. 10/30/17 Urine Culture - Final, Complete Nonenterococcus (Chains Cocci) Assessment/Plan Assessment/Plan Assess & Plan/Chief Complaint Right ankle trimalleolar fracture Plan for discharge to SNF tomorrow Clinical Quality Measures DVT/VTE Risk/Contraindication: Risk Factor Score Per Nursin RFS Level Per Nursing on Admit: 4+=Very High Contraindications-Pharm: Other *list below* Contraindications-Mechi: Other *list below* VIRIDIANA LEDBETTER Nov 16, 2017 19:28
[2017-11-16] MEDS: KCL 10 MEQ TAB (MICRO K) PO SCH (20:47)
[2017-11-16] MEDS: ATORVASTATIN 10 MG (LIPITOR) TABLET PO SCH (20:47)
[2017-11-16] MEDS: SERTRALINE 50 MG (ZOLOFT) TABLET PO SCH (20:47)
[2017-11-16] MEDS: POLYETHYLENE GLYCOL 17 GM (MIRALAX) PACK PO SCH (20:48)
[2017-11-17] VITALS: BP 112/59
[2017-11-17] MEDS: RT-ALBUTEROL/IPRATROPIUM 3 ML (DUONEB) VIAL INH SCH ×4 (01:38→15:16)
[2017-11-17] MEDS: MULTIVIT W/MINERALS TAB (THERAGRAN M) PO SCH (05:11)
[2017-11-17] MEDS: HYDROcodone/APAP 5 MG/325 MG (LORTAB) TAB PO PRN ×2 (05:13→11:18)
[2017-11-17 06:18] LABS: BASOPHILS # (AUTO) 0.1 10^3/uL (0.0-0.1); BASOPHILS % (AUTO) 1 % (0-10); EOSINOPHILS # (AUTO) 0.1 10^3/uL (0.0-0.3); EOSINOPHILS % (AUTO) 3 % (0-10); HEMATOCRIT 29 % (35-52); HEMOGLOBIN 8.5 G/DL (11.5-16.0); LYMPHOCYTES # (AUTO) 0.7 X 10^3 (1.0-4.0); LYMPHOCYTES % (AUTO) 15 % (12-44); MEAN CORPUSCULAR HEMOGLOBIN 25 PG (25-34); MEAN CORPUSCULAR HGB CONC 30 G/DL (32-36); MEAN CORPUSCULAR VOLUME 85 FL (80-99); MEAN PLATELET VOLUME 10.4 FL (7.4-10.4); MONOCYTES # (AUTO) 0.4 X 10^3 (0.0-1.0); MONOCYTES % (AUTO) 9 % (0-12); NEUTROPHILS # (AUTO) 3.4 X 10^3 (1.8-7.8); NEUTROPHILS % (AUTO) 72 % (42-75); PLATELET COUNT 351 10^3/uL (130-400); RED BLOOD COUNT 3.38 10^6/uL (4.35-5.85); RED CELL DISTRIBUTION WIDTH 15.7 % (10.0-14.5); WHITE BLOOD COUNT 4.7 10^3/uL (4.3-11.0)
[2017-11-17 06:32] LABS: BUN/CREATININE RATIO 11; CALCIUM 10.4 MG/DL (8.5-10.1); CARBON DIOXIDE 33 MMOL/L (21-32); CHLORIDE 97 MMOL/L (98-107); CREATININE SERUM 0.62 MG/DL (0.60-1.30); GFR ESTIMATED > 60; GLUCOSE 147 MG/DL (70-105); POTASSIUM 4.1 MMOL/L (3.6-5.0); SODIUM 139 MMOL/L (135-145)
[2017-11-17] MEDS: inSUlin ASPART (NovoLOG) 1 UNIT/0.01 ML (CHARGE PER UNIT) SC SCH ×2 (06:32→11:18)
[2017-11-17] MEDS: RT-ADVAIR HFA 115/21 MCG PER PUFF IH SCH (07:15)
[2017-11-17] MEDS: UMECLIDINIUM BROMIDE (INCRUSE ELLIPTA) 7'S IH SCH (07:16)
[2017-11-17 08:00] VITALS: BP 149/73
--- NOTE | 2017-11-17 08:22 | Progress Note (SOAP) ---
Subjective Time Seen by Provider: 08:20 Subjective/Events-last exam ankle fracture. Patient breathing good today. okay with me patient be discharged nursing to shelter via [facility] Objective Exam Vital Signs Date Time Temp Pulse Resp B/P (MAP) Pulse Ox O2 Delivery O2 Flow Rate FiO2 11/17/17 07:13 97 Room Air 11/17/17 01:38 99 High Flow N/C 3.00 11/17/17 00:00 96.8 74 18 112/59 (76) 95 Nasal Cannula 3.50 11/16/17 23:26 95 High Flow N/C 3.00 11/16/17 21:58 97 High Flow N/C 3.50 11/16/17 20:00 Nasal Cannula 3.00 11/16/17 18:58 High Flow N/C 3.50 11/16/17 18:41 75 27 98 30.00 11/16/17 18:34 98 High Flow N/C 3.50 11/16/17 16:57 98.3 86 20 146/68 (94) 97 Nasal Cannula 3.50 11/16/17 14:57 95 High Flow N/C 3.50 I & O 11/17/17 06:59 Intake Total 1113 ml Output Total 2900 ml Balance -1787 ml Capillary Refill : Less Than 3 SecondsLess Than 3 Seconds General Appearance: No Apparent Distress, WD/WN HEENT: Normal ENT Inspection Neck: Full Range of Motion Respiratory: Chest Non Tender, No Accessory Muscle Use, No Respiratory Distress , Decreased Breath Sounds Cardiovascular: Regular Rate, Rhythm, No Murmur Results Lab Laboratory Tests 11/16/17 11:24: Glucometer 177H 11/16/17 16:30: Glucometer 193H 11/16/17 20:21: Glucometer 200H 11/17/17 06:05: White Blood Count 4.7, Red Blood Count 3.38L, Hemoglobin 8.5L, Hematocrit 29L, Mean Corpuscular Volume 85, Mean Corpuscular Hemoglobin 25, Mean Corpuscular Hemoglobin Concent 30L, Red Cell Distribution Width 15.7H, Platelet Count 351, Mean Platelet Volume 10.4, Neutrophils (%) (Auto) 72, Lymphocytes (%) (Auto) 15 , Monocytes (%) (Auto) 9, Eosinophils (%) (Auto) 3, Basophils (%) (Auto) 1, Neutrophils # (Auto) 3.4, Lymphocytes # (Auto) 0.7L, Monocytes # (Auto) 0.4, Eosinophils # (Auto) 0.1, Basophils # (Auto) 0.1, Sodium Level 139, Potassium Level 4.1, Chloride Level 97L, Carbon Dioxide Level 33H, Anion Gap 9, Blood Urea Nitrogen 7, Creatinine 0.62, Estimat Glomerular Filtration Rate > 60, BUN/ Creatinine Ratio 11, Glucose Level 147H, Calcium Level 10.4H 11/17/17 06:20: Glucometer 145H Microbiology 10/30/17 Blood Culture - Final, Complete No growth 11/01/17 Gram Stain - Final, Complete 11/01/17 Sputum Culture - Final, Complete Usual/normal fang isolated. 10/30/17 Urine Culture - Final, Complete Nonenterococcus (Chains Cocci) Assessment/Plan Assessment/Plan Assess & Plan/Chief Complaint Right acute ankle fracture Acute on chronic respiratory failure. COPD with acute exacerbation. MICHAEL with obesity. Acute UTI. Diabetes. Hypercapnia. Confusion. . 11/03/16 acute right ankle fracture. Acute and chronic respiratory failure COPD with acute exacerbation. diabetes. uTI. Patient on ventilator Patient respiratory distress Friday nightrea . 11/10/17. acute right ankle fracture. Acute and chronic respiratory failure. COPD with acute exacerbation. Diabetes. UTI. Patient waiting for surgery. . 11/11/17. Right acute ankle fracture. Acute and chronic respiratory failure. COPD with acute exacerbation. MICHAEL. Diabetes. Patient ready for surgery tomorrow. . 11/12/17. Right acute ankle fracture. Acute and chronic respiratory failure. COPD with acute exacerbation. Diabetes. Patient have surgery tomorrow. Patient constipated. Patient is as good as can be expected. . 11/13/17. Acute ankle fracture. Acute and chronic respiratory failure. COPD with acute exacerbation. Diabetes area Ready for surgery today. . 11/14/17. Acute ankle fracture. Had surgery yesterday. Acute and chronic respiratory failure. COPD with acute exacerbation. Diabetes better. . 11/17/17. Acute right ankle fracture. cOPD with acute exacerbation. Diabetes. Okay with me for patient to be discharged to shelter Clinical Quality Measures Admission Status Admission Dx Fractured right ankle. COPD with acute exacerbation. Diabetes. History of CHF. Arthritis. DVT/VTE Risk/Contraindication: Risk Factor Score Per Nursin RFS Level Per Nursing on Admit: 4+=Very High Contraindications-Pharm: Other *list below* Contraindications-Mechi: Other *list below* RADHA HAYES DO Nov 17, 2017 08:22
--- NOTE | 2017-11-17 08:44 | Progress Note (SOAP) ---
Subjective Date Seen by Provider: Nov 17, 2017 Time Seen by Provider: 08:00 Subjective/Events-last exam s/p ORIF right ankle vss afebrile Review of Systems General: No Chills Pulmonary: No Dyspnea Cardiovascular: No: Chest Pain Gastrointestinal: No: Nausea Objective Exam Vital Signs Date Time Temp Pulse Resp B/P (MAP) Pulse Ox O2 Delivery O2 Flow Rate FiO2 11/17/17 07:13 97 Room Air 11/17/17 01:38 99 High Flow N/C 3.00 11/17/17 00:00 96.8 74 18 112/59 (76) 95 Nasal Cannula 3.50 11/16/17 23:26 95 High Flow N/C 3.00 11/16/17 21:58 97 High Flow N/C 3.50 11/16/17 20:00 Nasal Cannula 3.00 11/16/17 18:58 High Flow N/C 3.50 11/16/17 18:41 75 27 98 30.00 11/16/17 18:34 98 High Flow N/C 3.50 11/16/17 16:57 98.3 86 20 146/68 (94) 97 Nasal Cannula 3.50 11/16/17 14:57 95 High Flow N/C 3.50 I & O 11/17/17 07:00 Intake Total 1113 ml Output Total 2900 ml Balance -1787 ml Capillary Refill : Less Than 3 SecondsLess Than 3 Seconds General Appearance: No Apparent Distress Respiratory: No Accessory Muscle Use, No Respiratory Distress Extremity: Other (RLE wrapped with boot in place, no cyanosis to toes, motor function intact) Neurologic/Psychiatric: Alert, Oriented x3 Results Lab Laboratory Tests 11/16/17 11:24: Glucometer 177H 11/16/17 16:30: Glucometer 193H 11/16/17 20:21: Glucometer 200H 11/17/17 06:05: White Blood Count 4.7, Red Blood Count 3.38L, Hemoglobin 8.5L, Hematocrit 29L, Mean Corpuscular Volume 85, Mean Corpuscular Hemoglobin 25, Mean Corpuscular Hemoglobin Concent 30L, Red Cell Distribution Width 15.7H, Platelet Count 351, Mean Platelet Volume 10.4, Neutrophils (%) (Auto) 72, Lymphocytes (%) (Auto) 15 , Monocytes (%) (Auto) 9, Eosinophils (%) (Auto) 3, Basophils (%) (Auto) 1, Neutrophils # (Auto) 3.4, Lymphocytes # (Auto) 0.7L, Monocytes # (Auto) 0.4, Eosinophils # (Auto) 0.1, Basophils # (Auto) 0.1, Sodium Level 139, Potassium Level 4.1, Chloride Level 97L, Carbon Dioxide Level 33H, Anion Gap 9, Blood Urea Nitrogen 7, Creatinine 0.62, Estimat Glomerular Filtration Rate > 60, BUN/ Creatinine Ratio 11, Glucose Level 147H, Calcium Level 10.4H 11/17/17 06:20: Glucometer 145H Microbiology 10/30/17 Blood Culture - Final, Complete No growth 11/01/17 Gram Stain - Final, Complete 11/01/17 Sputum Culture - Final, Complete Usual/normal fang isolated. 10/30/17 Urine Culture - Final, Complete Nonenterococcus (Chains Cocci) Assessment/Plan Assessment/Plan Assess & Plan/Chief Complaint s/p orif right ankle planning dismissal today to rehab nwb to rle follow up with Dr Tipton in 2 weeks Clinical Quality Measures DVT/VTE Risk/Contraindication: Risk Factor Score Per Nursin RFS Level Per Nursing on Admit: 4+=Very High Contraindications-Pharm: Other *list below* Contraindications-Mechi: Other *list below* JAZIEL SOLORZANO Nov 17, 2017 08:44
[2017-11-17] MEDS: amLODIPine 10 MG (NORVASC) TAB PO SCH (09:25)
[2017-11-17] MEDS: meTOprolol TARTRATE 50 MG (LOPRESSOR) TAB PO SCH (09:25)
[2017-11-17] MEDS: FLUTICASONE NASAL SPRAY (FLONASE) 16 GM BTL NS SCH (09:25)
[2017-11-17] MEDS: HYDROCHLOROTHIAZIDE 25 MG (HCTZ) TAB PO SCH (09:25)
[2017-11-17] MEDS: GABAPENTIN 300 MG (NEURONTIN) CAP PO SCH (09:25)
[2017-11-17] MEDS: PRAMIPEXOLE 0.5 MG TAB (MIRAPEX) PO SCH (09:25)
[2017-11-17] MEDS: risperiDONE 1 MG (RisperDAL) TAB PO SCH (09:25)
[2017-11-17] MEDS: PANTOPRAZOLE 40 MG (PROTONIX) TAB PO SCH (09:26)
[2017-11-17] MEDS: SENNA W/DOCUSATE (SENOKOT S) TABLET PO SCH (09:26)
[2017-11-17] MEDS: ENOXAPARIN 40 MG/0.4 ML (LOVENOX) SYR SC SCH (09:26)
--- NOTE | 2017-11-17 09:38 | Physical Therapy Daily Note ---
PT Daily Note-Current Subjective Patient agrees to exercise and OOB. Pain Numeric Pain Scale: 0-No Pain Location: No Pain Reported Mental Status Patient Orientation: Normal For Age Attachments: Oxygen Transfers Functional [place] Measure 0=Not Assessed/NA 4=Minimal Assistance 1=Total Assistance 5=Supervision or Setup 2=Maximal Assistance 6=Modified [place] 3=Moderate Assistance 7=Complete IndependenceIRFPAI Quality Coding Scale 6 Independent with activity with or without an assistive device 5 Patient requires set up or clean up by helper. Patient completes activity by themselves 4 Supervision or touching assist (CGA). [place] provide cues , steadying assist 3 The helper provides less than half the effort to complete the activity 2 The helper provides more than half the effort to complete the activity 1 Dependent. The helper does all the effort to complete an activity 7 Patient refused to complete or attempt activity 9 The patient did not perform the activity before the current illness or injury 88 Not attempted due to Medical conditions or safety concerns Transfers (B, C, W/C) (FIM): 1 Scootin Supine to/from Sit: 1 Sit to/from Stand: 1 Bed to/from Chair: 1 dependent assist x 2 with sit to stand transfers and SPT bed to chair with patient attempting to assist with left LE secondary to NWB right LE Weight Bearing Right Lower Extremity: Right Non Weight Bearing (strict per Dr. Tipton) Left Lower Extremity: Left Full Weight Bearing CAM boot right LE Exercises Supine Ex: Ankle pumps (left LE x 15), Quad Set, Heel Slides, Straight leg raise (AAROM bilaterally) Supine Reps: 10 Seated Therapy Exercises: Sit to stand (x 3 sets dependent assist x 2), Long arc quads, Hip flexion Seated Reps: 15 Assessment Patient improving with treatment plan and will transfer to [place] for continued care and therapy. PT Short Term Goals Short Term Goals Transfers (B,C,W/C) (FIM): 3 PT Hotel Operation Manager Goals Longterm Goals PT Hotel Operation Manager Goals Time Frame: Dec 05, 2017 Transfers (B,C,W/C) (FIM): 3 PT Plan Treatment/Plan Treatment Plan: Discontinue PT Treatment Plan: Bed Mobility, Education, Functional Activity Lio, Functional Strength, Safety, Therapeutic Exercise, Transfers Treatment Duration: Dec 05, 2017 Frequency: 6 times per week Estimated Hrs Per Day: .25 hour per day Patient and/or Family Agrees t: Yes Time/GCodes Time In: 825 Time Out: 854 Total Billed Treatment Time: 24 Total Billed Treatment 1 visit EX x 2 24 min LAURA SALINAS PT Nov 17, 2017 09:38
--- NOTE | 2017-11-17 10:56 | Discharge Inst-Skilled Nursing ---
Discharge Inst-Skilled NF Consult/Follow Up/Orders Skilled NF Admit to: [facility] Certification (SNF) I certify that SNF services are required to be given on an inpatient basis because of the above named patient's need for long term care on a continuing basis for the conditions(s) for which he/she was receiving inpatient hospital services prior to his/her transfer to the SNF. Daily Activity as Tolerated: Yes New & Resume Previous Orders Sina Hayes Nov 17, 2017 10:56 SINA HAYES DO Nov 17, 2017 10:56 am
[2017-11-17] MEDS: inSUlin DETERMIR 1 UNIT/0.01 ML (LEVEMIR) CHARGE PER UNIT SQ SCH (11:17)
[2017-11-17] MEDS ORDERED: ASPI-808 PO (13:34)
[2017-11-17 16:19] VITALS: BP 149/73
--- NOTE | 2017-11-18 07:10 | Discharge Summary ---
Diagnosis/Chief Complaint Date of Admission Oct 30, 2017 at 15:09 Date of Discharge Nov 17, 2017 at 15:55 Discharge Time: 07:05 Discharge Diagnosis Right acute ankle fracture. Acute and chronic respiratory failure. COPD with acute exacerbation. MICHAEL. UTI. Hypertension area Hypercapnia. Anemia. Diabetes. Dependence on supplemental oxygen. GERD. Morbid obesity. Pneumonia. Reason Hospital Visit Patient fell at home area Patient had a deformed right ankle. Patient brought out by EMS to the emergency room. Patient has a fractured right ankle. Patient pulse ox in the 70s. Arterial blood gas with high PCO2. Patient has elevated temperature. Patient on BiPAP now. Patient desaturates on BiPAP taken off. Patient not is stable for surgery tonight Discharge Summary Procedures Patient had 2 procedures for ankle for trimalleolar fracture Consultations Pulmonology. Orthopedics Discharge Physical Examination Allergies: Coded Allergies: enalapril (Verified Allergy, Severe, ANAPHYLAXIS, 08/22/13) Vitals & I&Os Vital Signs Date Time Temp Pulse Resp B/P (MAP) Pulse Ox O2 Delivery O2 Flow Rate FiO2 11/17/17 16:19 99 20 149/73 96 Nasal Cannula 3.00 11/17/17 08:00 97.6 Hospital Course Labs (last 24 hrs) Laboratory Tests 10/30/17 13:37: White Blood Count 10.2, Red Blood Count 3.54L, Hemoglobin 8.8L, Hematocrit 32L, Mean Corpuscular Volume 89, Mean Corpuscular Hemoglobin 25, Mean Corpuscular Hemoglobin Concent 28L, Red Cell Distribution Width 16.0H, Platelet Count 287, Mean Platelet Volume 11.3H, Neutrophils (%) (Auto) 86H, Lymphocytes (%) (Auto) 9L, Monocytes (%) (Auto) 5, Eosinophils (%) (Auto) 0, Basophils (%) (Auto) 0, Neutrophils # (Auto) 8.8H, Lymphocytes # (Auto) 0.9L, Monocytes # (Auto) 0.5, Eosinophils # (Auto) 0.0, Basophils # (Auto) 0.0, Neutrophils % (Manual) 86, Lymphocytes % (Manual) 3, Monocytes % (Manual) 6, Eosinophils % (Manual) 1, Basophils % (Manual) 1, Band Neutrophils 1, Reactive Lymphocytes 2, Toxic Granulation 1+, Hypochromasia MODERATE, Poikilocytosis MARKED, Basophilic Stippling SLIGHT, Anisocytosis MODERATE, Stomatocytes MARKED, Elliptocytes SLIGHT, Sodium Level 141, Potassium Level 4.9, Chloride Level 99, Carbon Dioxide Level 37H, Anion Gap 5, Blood Urea Nitrogen 31H, Creatinine 0.78, Estimat Glomerular Filtration Rate > 60, BUN/Creatinine Ratio 40, Glucose Level 242H, Calcium Level 9.2, Total Bilirubin 0.2, Aspartate Amino Transf (AST/SGOT) 13, Alanine Aminotransferase (ALT/SGPT) 15, Alkaline Phosphatase 63, B-Type Natriuretic Peptide 42.9, Total Protein 6.3L, Albumin 3.6 10/30/17 14:01: Blood Gas Puncture Site L RAD, Blood Gas Patient Temperature 98.1, Arterial Blood pH 7.28*L, Arterial Blood Partial Pressure CO2 82*H, Arterial Blood Partial Pressure O2 55L, Arterial Blood HCO3 37H, Arterial Blood Total CO2 39.7H , Arterial Blood Oxygen Saturation 93L, Arterial Blood Base Excess 10.3H, [place] Test YES-POS, Blood Gas Ventilator Setting NO, Blood Gas Inspired Oxygen 5L 10/30/17 14:30: Urine Color YELLOW, Urine Clarity CLEAR, Urine pH 5, Urine Specific [place] 1.025H, Urine Protein 2+H, Urine Glucose (UA) NEGATIVE, Urine Ketones NEGATIVE, Urine Nitrite NEGATIVE, Urine Bilirubin NEGATIVE, Urine Urobilinogen NORMAL, Urine Leukocyte Esterase 3+H, Urine RBC (Auto) 1+H, Urine RBC 0-2, Urine WBC 10- 25H, Urine Squamous Epithelial Cells 10-25H, Urine Renal Epithelial Cells NONE, Urine Crystals NONE, Urine Bacteria TRACE, Urine Casts PRESENT, Urine Hyaline Casts 10-25H, Urine Mucus SMALLH, Urine Culture Indicated YES, Lactic Acid Level 0.64 10/30/17 16:04: Blood Gas Puncture Site LEFT RADIAL, Blood Gas Patient Temperature 101, Arterial Blood pH 7.27*L, Arterial Blood Partial Pressure CO2 85*H, Arterial Blood Partial Pressure O2 105H, Arterial Blood HCO3 38H, Arterial Blood Total CO2 40.0H, Arterial Blood Oxygen Saturation 98, Arterial Blood Base Excess 10.9H , [place] Test POSITIVE, Blood Gas Ventilator Setting NO, Blood Gas Inspired Oxygen 50% BIPAP 10/30/17 17:25: Lactic Acid Level 0.72 10/30/17 18:30: Blood Gas Puncture Site LEFT RADIAL, Blood Gas Patient Temperature 101.8, Arterial Blood pH 7.29*L, Arterial Blood Partial Pressure CO2 82*H, Arterial Blood Partial Pressure O2 112H, Arterial Blood HCO3 37H, Arterial Blood Total CO2 39.4H, Arterial Blood Oxygen Saturation 99, Arterial Blood Base Excess 10.8H , [place] Test POSITIVE, Blood Gas Ventilator Setting NO, Blood Gas Inspired Oxygen 50% BIPAP 10/30/17 19:21: Glucometer 136H 10/30/17 23:05: Blood Gas Puncture Site RIGHT RADIAL, Blood Gas Patient Temperature 98.9, Arterial Blood pH 7.32*L, Arterial Blood Partial Pressure CO2 70H, Arterial Blood Partial Pressure O2 87, Arterial Blood HCO3 35H, Arterial Blood Total CO2 36.8H, Arterial Blood Oxygen Saturation 97, Arterial Blood Base Excess 8.6H, [place] Test POSITIVE, Blood Gas Ventilator Setting NO, Blood Gas Inspired Oxygen 50% BIPAP 10/31/17 00:20: Glucometer 223H 10/31/17 03:15: White Blood Count 8.4, Red Blood Count 3.23L, Hemoglobin 8.1L, Hematocrit 28L, Mean Corpuscular Volume 88, Mean Corpuscular Hemoglobin 25, Mean Corpuscular Hemoglobin Concent 29L, Red Cell Distribution Width 16.1H, Platelet Count 252, Mean Platelet Volume 11.8H, Neutrophils (%) (Auto) 95H, Lymphocytes (%) (Auto) 2L, Monocytes (%) (Auto) 2, Eosinophils (%) (Auto) 0, Basophils (%) (Auto) 0, Neutrophils # (Auto) 8.0H, Lymphocytes # (Auto) 0.2L, Monocytes # (Auto) 0.2, Eosinophils # (Auto) 0.0, Basophils # (Auto) 0.0, Sodium Level 141, Potassium Level 5.4H, Chloride Level 103, Carbon Dioxide Level 33H, Anion Gap 5, Blood Urea Nitrogen 31H, Creatinine 0.78, Estimat Glomerular Filtration Rate > 60, BUN /Creatinine Ratio 40, Glucose Level 204H, Calcium Level 9.1, Phosphorus Level 2.2L, Magnesium Level 2.0, B-Type Natriuretic Peptide 26.9 10/31/17 03:40: Blood Gas Puncture Site RIGHT RADIAL, Blood Gas Patient Temperature 98.6, Arterial Blood pH 7.37, Arterial Blood Partial Pressure CO2 62H, Arterial Blood Partial Pressure O2 82, Arterial Blood HCO3 35H, Arterial Blood Total CO2 36.6H , Arterial Blood Oxygen Saturation 98, Arterial Blood Base Excess 9.3H, [place] Test YES-POS, Blood Gas Ventilator Setting NO, Blood Gas Inspired Oxygen 45% 10/31/17 11:13: Glucometer 182H 10/31/17 12:55: Blood Gas Puncture Site RIGHT RADIAL, Blood Gas Patient Temperature 97.4, Arterial Blood pH 7.36L, Arterial Blood Partial Pressure CO2 58H, Arterial Blood Partial Pressure O2 92, Arterial Blood HCO3 32H, Arterial Blood Total CO2 33.7H, Arterial Blood Oxygen Saturation 98, Arterial Blood Base Excess 6.4H, [place] Test POSITIVE, Blood Gas Ventilator Setting NO, Blood Gas Inspired Oxygen 40% BIPAP 10/31/17 18:04: Glucometer 152H 10/31/17 23:58: Glucometer 155H 11/01/17 02:18: Blood Gas Puncture Site LT RAD, Blood Gas Patient Temperature 98.4, Arterial Blood pH 7.46H, Arterial Blood Partial Pressure CO2 38, Arterial Blood Partial Pressure O2 69L, Arterial Blood HCO3 27, Arterial Blood Total CO2 28.0, Arterial Blood Oxygen Saturation 96, Arterial Blood Base Excess 3.2H, [place] Test YES-POS, Blood Gas Ventilator Setting NO, Blood Gas Inspired Oxygen 25% BIPAP 11/01/17 02:32: White Blood Count 6.9, Red Blood Count 3.19L, Hemoglobin 8.1L, Hematocrit 27L, Mean Corpuscular Volume 84, Mean Corpuscular Hemoglobin 25, Mean Corpuscular Hemoglobin Concent 30L, Red Cell Distribution Width 15.9H, Platelet Count 296, Mean Platelet Volume 10.8H, Neutrophils (%) (Auto) 89H, Lymphocytes (%) (Auto) 8L, Monocytes (%) (Auto) 4, Eosinophils (%) (Auto) 0, Basophils (%) (Auto) 0, Neutrophils # (Auto) 6.1, Lymphocytes # (Auto) 0.5L, Monocytes # (Auto) 0.3, Eosinophils # (Auto) 0.0, Basophils # (Auto) 0.0, Sodium Level 140, Potassium Level 4.7, Chloride Level 105, Carbon Dioxide Level 26, Anion Gap 9, Blood Urea Nitrogen 32H, Creatinine 0.70, Estimat Glomerular Filtration Rate > 60, BUN/ Creatinine Ratio 46, Glucose Level 166H, Calcium Level 9.0, Phosphorus Level 2.3 , Magnesium Level 1.9 11/01/17 08:05: Blood Gas Puncture Site LEFT RADIAL, Blood Gas Patient Temperature 97.8, Arterial Blood pH 7.37, Arterial Blood Partial Pressure CO2 48H, Arterial Blood Partial Pressure O2 259H, Arterial Blood HCO3 27, Arterial Blood Total CO2 28.8 , Arterial Blood Oxygen Saturation 100, Arterial Blood Base Excess 2.5, [place] Test POSITIVE, Blood Gas Ventilator Setting YES, Blood Gas Inspired Oxygen 100% 11/01/17 12:08: Glucometer 195H 11/01/17 18:13: Glucometer 184H 11/02/17 00:26: Glucometer 209H 11/02/17 03:58: White Blood Count 6.8, Red Blood Count 3.02L, Hemoglobin 7.5L, Hematocrit 25L, Mean Corpuscular Volume 83, Mean Corpuscular Hemoglobin 25, Mean Corpuscular Hemoglobin Concent 30L, Red Cell Distribution Width 16.8H, Platelet Count 312, Mean Platelet Volume 11.5H, Neutrophils (%) (Auto) 85H, Lymphocytes (%) (Auto) 8L, Monocytes (%) (Auto) 7, Eosinophils (%) (Auto) 0, Basophils (%) (Auto) 0, Neutrophils # (Auto) 5.8, Lymphocytes # (Auto) 0.6L, Monocytes # (Auto) 0.5, Eosinophils # (Auto) 0.0, Basophils # (Auto) 0.0, Sodium Level 142, Potassium Level 3.7, Chloride Level 109H, Carbon Dioxide Level 24, Anion Gap 9, Blood Urea Nitrogen 18, Creatinine 0.70, Estimat Glomerular Filtration Rate > 60, BUN/ Creatinine Ratio 26, Glucose Level 177H, Calcium Level 8.9, Phosphorus Level 2.7 , Magnesium Level 1.8 11/02/17 04:00: Blood Gas Puncture Site LT RADIAL, Blood Gas Patient Temperature 98.8, Arterial Blood pH 7.39, Arterial Blood Partial Pressure CO2 44, Arterial Blood Partial Pressure O2 80, Arterial Blood HCO3 26, Arterial Blood Total CO2 27.5, Arterial Blood Oxygen Saturation 96, Arterial Blood Base Excess 1.7, [place] Test YES-POS, Blood Gas Ventilator Setting YES, Blood Gas Inspired Oxygen 30% 11/02/17 11:40: Glucometer 219H 11/02/17 17:43: Glucometer 214H 11/03/17 00:08: Glucometer 222H 11/03/17 03:25: Blood Gas Puncture Site LEFT RADIAL, Blood Gas Patient Temperature 98.7, Arterial Blood pH 7.38, Arterial Blood Partial Pressure CO2 44, Arterial Blood Partial Pressure O2 68L, Arterial Blood HCO3 25, Arterial Blood Total CO2 26.8, Arterial Blood Oxygen Saturation 94, Arterial Blood Base Excess 0.9, [place] Test YES-POS, Blood Gas Ventilator Setting YES, Blood Gas Inspired Oxygen 30% 11/03/17 03:30: Stool Occult Blood Immunoassay NEGATIVE 11/03/17 03:55: White Blood Count 6.6, Red Blood Count 3.11L, Hemoglobin 7.8L, Hematocrit 26L, Mean Corpuscular Volume 84, Mean Corpuscular Hemoglobin 25, Mean Corpuscular Hemoglobin Concent 30L, Red Cell Distribution Width 17.0H, Platelet Count 286, Mean Platelet Volume 11.1H, Neutrophils (%) (Auto) 92H, Lymphocytes (%) (Auto) 4L, Monocytes (%) (Auto) 4, Eosinophils (%) (Auto) 0, Basophils (%) (Auto) 0, Neutrophils # (Auto) 6.0, Lymphocytes # (Auto) 0.3L, Monocytes # (Auto) 0.3, Eosinophils # (Auto) 0.0, Basophils # (Auto) 0.0, Sodium Level 143, Potassium Level 3.7, Chloride Level 110H, Carbon Dioxide Level 23, Anion Gap 10, Blood Urea Nitrogen 19H, Creatinine 0.68, Estimat Glomerular Filtration Rate > 60, BUN /Creatinine Ratio 28, Glucose Level 234H, Calcium Level 8.9, Phosphorus Level 2.6, Magnesium Level 1.9 11/03/17 11:21: Glucometer 249H 11/03/17 17:50: Gastric Fluid Occult Blood POSITIVE 11/03/17 17:57: Glucometer 245H 11/03/17 23:57: Glucometer 230H 11/04/17 03:10: Blood Gas Puncture Site RIGHT RADIAL, Blood Gas Patient Temperature 97.2, Arterial Blood pH 7.43, Arterial Blood Partial Pressure CO2 40, Arterial Blood Partial Pressure O2 82, Arterial Blood HCO3 26, Arterial Blood Total CO2 27.1, Arterial Blood Oxygen Saturation 99, Arterial Blood Base Excess 1.7, [place] Test YES-POS, Blood Gas Ventilator Setting YES, Blood Gas Inspired Oxygen 30% 11/04/17 03:35: White Blood Count 9.5, Red Blood Count 2.92L, Hemoglobin 7.7L, Hematocrit 25L, Mean Corpuscular Volume 85, Mean Corpuscular Hemoglobin 26, Mean Corpuscular Hemoglobin Concent 31L, Red Cell Distribution Width 17.2H, Platelet Count 257, Mean Platelet Volume 11.2H, Neutrophils (%) (Auto) 92H, Lymphocytes (%) (Auto) 3L, Monocytes (%) (Auto) 5, Eosinophils (%) (Auto) 0, Basophils (%) (Auto) 0, Neutrophils # (Auto) 8.7H, Lymphocytes # (Auto) 0.3L, Monocytes # (Auto) 0.5, Eosinophils # (Auto) 0.0, Basophils # (Auto) 0.0, Sodium Level 139, Potassium Level 3.6, Chloride Level 110H, Carbon Dioxide Level 23, Anion Gap 6, Blood Urea Nitrogen 19H, Creatinine 0.59L, Estimat Glomerular Filtration Rate > 60, BUN/Creatinine Ratio 32, Glucose Level 210H, Calcium Level 8.2L, Phosphorus Level 2.4, Magnesium Level 2.0 11/04/17 09:26: Blood Gas Puncture Site R RAD, Blood Gas Patient Temperature 98.9, Arterial Blood pH 7.39, Arterial Blood Partial Pressure CO2 44, Arterial Blood Partial Pressure O2 56L, Arterial Blood HCO3 27, Arterial Blood Total CO2 27.8, Arterial Blood Oxygen Saturation 88L, Arterial Blood Base Excess 2.1, [place] Test YES-POS, Blood Gas Ventilator Setting YES, Blood Gas Inspired Oxygen 25% 11/04/17 12:25: Blood Gas Puncture Site R RAD, Blood Gas Patient Temperature 99.3, Arterial Blood pH 7.40, Arterial Blood Partial Pressure CO2 44, Arterial Blood Partial Pressure O2 80, Arterial Blood HCO3 27, Arterial Blood Total CO2 28.2, Arterial Blood Oxygen Saturation 97, Arterial Blood Base Excess 2.6H, [place] Test YES-POS , Blood Gas Ventilator Setting YES, Blood Gas Inspired Oxygen 35% 11/04/17 12:43: Glucometer 242H 11/04/17 18:13: Glucometer 204H 11/05/17 03:45: White Blood Count 16.9H, Red Blood Count 3.93L, Hemoglobin 10.0#L, Hematocrit 33L, Mean Corpuscular Volume 84, Mean Corpuscular Hemoglobin 25, Mean Corpuscular Hemoglobin Concent 30L, Red Cell Distribution Width 17.3H, Platelet Count 327, Mean Platelet Volume 10.8H, Neutrophils (%) (Auto) 85H, Lymphocytes ( %) (Auto) 6L, Monocytes (%) (Auto) 9, Eosinophils (%) (Auto) 0, Basophils (%) ( Auto) 0, Neutrophils # (Auto) 14.4H, Lymphocytes # (Auto) 1.0, Monocytes # (Auto ) 1.5H, Eosinophils # (Auto) 0.0, Basophils # (Auto) 0.0, Sodium Level 148H, Potassium Level 4.0, Chloride Level 114H, Carbon Dioxide Level 26, Anion Gap 8, Blood Urea Nitrogen 22H, Creatinine 0.66, Estimat Glomerular Filtration Rate > 60, BUN/Creatinine Ratio 33, Glucose Level 170H, Calcium Level 9.3, Phosphorus Level 2.8, Magnesium Level 2.0, B-Type Natriuretic Peptide 209.3H 11/05/17 04:02: Blood Gas Puncture Site RIGHT RADIAL, Blood Gas Patient Temperature 98.6, Arterial Blood pH 7.37, Arterial Blood Partial Pressure CO2 50H, Arterial Blood Partial Pressure O2 91, Arterial Blood HCO3 28H, Arterial Blood Total CO2 29.3, Arterial Blood Oxygen Saturation 98, Arterial Blood Base Excess 2.9H, [place] Test YES-POS, Blood Gas Ventilator Setting NO, Blood Gas Inspired Oxygen 35% 11/05/17 11:58: Glucometer 225H 11/05/17 17:45: Glucometer 157H 11/05/17 21:50: Blood Gas Puncture Site RT RAD, Blood Gas Patient Temperature 99.4, Arterial Blood pH 7.39, Arterial Blood Partial Pressure CO2 51H, Arterial Blood Partial Pressure O2 50L, Arterial Blood HCO3 30H, Arterial Blood Total CO2 31.9H, Arterial Blood Oxygen Saturation 83L, Arterial Blood Base Excess 5.7H, [place] Test YES-POS, Blood Gas Ventilator Setting NO, Blood Gas Inspired Oxygen 2L 11/05/17 22:15: White Blood Count 14.5H, Red Blood Count 3.78L, Hemoglobin 9.6L, Hematocrit 32L , Mean Corpuscular Volume 84, Mean Corpuscular Hemoglobin 25, Mean Corpuscular Hemoglobin Concent 30L, Red Cell Distribution Width 16.9H, Platelet Count 263, Mean Platelet Volume 10.4, Neutrophils (%) (Auto) 94H, Lymphocytes (%) (Auto) 3L , Monocytes (%) (Auto) 3, Eosinophils (%) (Auto) 0, Basophils (%) (Auto) 0, Neutrophils # (Auto) 13.7H, Lymphocytes # (Auto) 0.4L, Monocytes # (Auto) 0.4, Eosinophils # (Auto) 0.0, Basophils # (Auto) 0.0, Neutrophils % (Manual) 94, Lymphocytes % (Manual) 3, Monocytes % (Manual) 3, Eosinophils % (Manual) 0, Basophils % (Manual) 0, Band Neutrophils 0, Blood Morphology Comment NORMAL, Sodium Level 141, Potassium Level 4.0, Chloride Level 103, Carbon Dioxide Level 28, Anion Gap 10, Blood Urea Nitrogen 22H, Creatinine 0.65, Estimat Glomerular Filtration Rate > 60, BUN/Creatinine Ratio 34, Glucose Level 220H, Lactic Acid Level 0.58, Calcium Level 9.4, Magnesium Level 1.6L, Total Bilirubin 0.4, Direct Bilirubin 0.2, Indirect Bilirubin 0.2, Aspartate Amino Transf (AST/SGOT) 18, Alanine Aminotransferase (ALT/SGPT) 27, Alkaline Phosphatase 54, Total Protein 5.8L, Albumin 3.4 11/06/17 03:15: White Blood Count 12.9H, Red Blood Count 3.82L, Hemoglobin 9.7L, Hematocrit 32L , Mean Corpuscular Volume 84, Mean Corpuscular Hemoglobin 25, Mean Corpuscular Hemoglobin Concent 30L, Red Cell Distribution Width 17.0H, Platelet Count 256, Mean Platelet Volume 10.5H, Neutrophils (%) (Auto) 89H, Lymphocytes (%) (Auto) 5L, Monocytes (%) (Auto) 5, Eosinophils (%) (Auto) 0, Basophils (%) (Auto) 0, Neutrophils # (Auto) 11.6H, Lymphocytes # (Auto) 0.7L, Monocytes # (Auto) 0.7, Eosinophils # (Auto) 0.0, Basophils # (Auto) 0.0, Sodium Level 142, Potassium Level 4.1, Chloride Level 103, Carbon Dioxide Level 30, Anion Gap 9, Blood Urea Nitrogen 22H, Creatinine 0.63, Estimat Glomerular Filtration Rate > 60, BUN/ Creatinine Ratio 35, Glucose Level 217H, Calcium Level 9.4, Magnesium Level 1.8 , Phosphorus Level 4.3 11/06/17 03:35: Blood Gas Puncture Site L RAD, Blood Gas Patient Temperature 98.3, Arterial Blood pH 7.39, Arterial Blood Partial Pressure CO2 53H, Arterial Blood Partial Pressure O2 71L, Arterial Blood HCO3 31H, Arterial Blood Total CO2 33.1H, Arterial Blood Oxygen Saturation 95, Arterial Blood Base Excess 6.5H, [place] Test YES-POS, Blood Gas Ventilator Setting NO, Blood Gas Inspired Oxygen 35% FIO2 11/06/17 09:32: Lab Scanned Report Transfusion Reaction Form 11/06/17 11:15: Glucometer 195H 11/06/17 18:22: Glucometer 194H 11/07/17 02:10: White Blood Count 9.9, Red Blood Count 3.87L, Hemoglobin 9.7L, Hematocrit 32L, Mean Corpuscular Volume 83, Mean Corpuscular Hemoglobin 25, Mean Corpuscular Hemoglobin Concent 30L, Red Cell Distribution Width 16.4H, Platelet Count 243, Mean Platelet Volume 11.1H, Neutrophils (%) (Auto) 81H, Lymphocytes (%) (Auto) 10L, Monocytes (%) (Auto) 7, Eosinophils (%) (Auto) 2, Basophils (%) (Auto) 0, Neutrophils # (Auto) 8.0H, Lymphocytes # (Auto) 1.0, Monocytes # (Auto) 0.7, Eosinophils # (Auto) 0.2, Basophils # (Auto) 0.0, Blood Gas Puncture Site R RAD , Blood Gas Patient Temperature 98.0, Arterial Blood pH 7.44H, Arterial Blood Partial Pressure CO2 51H, Arterial Blood Partial Pressure O2 76L, Arterial Blood HCO3 34H, Arterial Blood Total CO2 35.7H, Arterial Blood Oxygen Saturation 97, Arterial Blood Base Excess 9.5H, [place] Test YES-POS, Blood Gas Ventilator Setting NO, Blood Gas Inspired Oxygen 35% BIPAP, Sodium Level 141, Potassium Level 3.5L, Chloride Level 99, Carbon Dioxide Level 34H, Anion Gap 8, Blood Urea Nitrogen 17, Creatinine 0.57L, Estimat Glomerular Filtration Rate > 60, BUN/Creatinine Ratio 30, Glucose Level 147H, Calcium Level 9.2, Phosphorus Level 3.4, Magnesium Level 1.6L 11/07/17 12:25: Glucometer 210H 11/07/17 15:51: Glucometer 197H 11/07/17 20:53: Glucometer 201H 11/08/17 04:20: White Blood Count 10.4, Red Blood Count 3.79L, Hemoglobin 9.6L, Hematocrit 31L, Mean Corpuscular Volume 83, Mean Corpuscular Hemoglobin 25, Mean Corpuscular Hemoglobin Concent 31L, Red Cell Distribution Width 16.5H, Platelet Count 223, Mean Platelet Volume 11.7H, Neutrophils (%) (Auto) 84H, Lymphocytes (%) (Auto) 8L, Monocytes (%) (Auto) 7, Eosinophils (%) (Auto) 1, Basophils (%) (Auto) 0, Neutrophils # (Auto) 8.7H, Lymphocytes # (Auto) 0.9L, Monocytes # (Auto) 0.8, Eosinophils # (Auto) 0.1, Basophils # (Auto) 0.0, Sodium Level 139, Potassium Level 3.6, Chloride Level 99, Carbon Dioxide Level 30, Anion Gap 10, Blood Urea Nitrogen 18, Creatinine 0.63, Estimat Glomerular Filtration Rate > 60, BUN/ Creatinine Ratio 29, Glucose Level 164H, Calcium Level 9.8 11/08/17 11:09: Glucometer 205H 11/08/17 16:15: Glucometer 227H 11/08/17 20:47: Glucometer 177H 11/09/17 04:25: White Blood Count 10.2, Red Blood Count 3.59L, Hemoglobin 9.1L, Hematocrit 29L, Mean Corpuscular Volume 80, Mean Corpuscular Hemoglobin 25, Mean Corpuscular Hemoglobin Concent 32, Red Cell Distribution Width 16.1H, Platelet Count 216, Mean Platelet Volume 11.1H, Neutrophils (%) (Auto) 82H, Lymphocytes (%) (Auto) 9L, Monocytes (%) (Auto) 8, Eosinophils (%) (Auto) 1, Basophils (%) (Auto) 0, Neutrophils # (Auto) 8.4H, Lymphocytes # (Auto) 0.9L, Monocytes # (Auto) 0.8, Eosinophils # (Auto) 0.1, Basophils # (Auto) 0.0, Sodium Level 139, Potassium Level 3.6, Chloride Level 98, Carbon Dioxide Level 29, Anion Gap 12, Blood Urea Nitrogen 14, Creatinine 0.56L, Estimat Glomerular Filtration Rate > 60, BUN/ Creatinine Ratio 25, Glucose Level 140H, Calcium Level 9.7 11/09/17 11:21: Glucometer 159H 11/09/17 16:05: Glucometer 189H 11/09/17 20:24: Glucometer 195H 11/10/17 05:26: White Blood Count 8.5, Red Blood Count 3.59L, Hemoglobin 9.2L, Hematocrit 29L, Mean Corpuscular Volume 81, Mean Corpuscular Hemoglobin 26, Mean Corpuscular Hemoglobin Concent 32, Red Cell Distribution Width 16.2H, Platelet Count 218, Mean Platelet Volume 11.1H, Neutrophils (%) (Auto) 76H, Lymphocytes (%) (Auto) 12, Monocytes (%) (Auto) 11, Eosinophils (%) (Auto) 1, Basophils (%) (Auto) 0, Neutrophils # (Auto) 6.5, Lymphocytes # (Auto) 1.0, Monocytes # (Auto) 0.9, Eosinophils # (Auto) 0.1, Basophils # (Auto) 0.0, Sodium Level 138, Potassium Level 3.7, Chloride Level 96L, Carbon Dioxide Level 32, Anion Gap 10, Blood Urea Nitrogen 14, Creatinine 0.60, Estimat Glomerular Filtration Rate > 60, BUN/ Creatinine Ratio 23, Glucose Level 148H, Calcium Level 9.9 11/10/17 05:32: Glucometer 143H 11/10/17 11:32: Glucometer 189H 11/10/17 16:16: Glucometer 268H 11/10/17 21:12: Glucometer 162H 11/11/17 05:25: White Blood Count 8.6, Red Blood Count 3.53L, Hemoglobin 9.0L, Hematocrit 30L, Mean Corpuscular Volume 85, Mean Corpuscular Hemoglobin 26, Mean Corpuscular Hemoglobin Concent 30L, Red Cell Distribution Width 16.0H, Platelet Count 249, Mean Platelet Volume 11.2H, Sodium Level 140, Potassium Level 3.6, Chloride Level 98, Carbon Dioxide Level 34H, Anion Gap 8, Blood Urea Nitrogen 15, Creatinine 0.60, Estimat Glomerular Filtration Rate > 60, BUN/Creatinine Ratio 25, Glucose Level 138H, Calcium Level 10.0, Total Bilirubin 0.5, Aspartate Amino Transf (AST/SGOT) 23, Alanine Aminotransferase (ALT/SGPT) 37, Alkaline Phosphatase 60, Total Protein 5.8L, Albumin 3.1L 11/11/17 05:47: Glucometer 135H 11/11/17 10:58: Glucometer 297H 11/11/17 16:25: Glucometer 235H 11/11/17 20:58: Glucometer 223H 11/12/17 04:50: White Blood Count 6.7, Red Blood Count 3.63L, Hemoglobin 9.1L, Hematocrit 32L, Mean Corpuscular Volume 88, Mean Corpuscular Hemoglobin 25, Mean Corpuscular Hemoglobin Concent 29L, Red Cell Distribution Width 15.8H, Platelet Count 288, Mean Platelet Volume 11.6H, Neutrophils (%) (Auto) 74, Lymphocytes (%) (Auto) 14 , Monocytes (%) (Auto) 10, Eosinophils (%) (Auto) 2, Basophils (%) (Auto) 0, Neutrophils # (Auto) 4.9, Lymphocytes # (Auto) 1.0, Monocytes # (Auto) 0.7, Eosinophils # (Auto) 0.1, Basophils # (Auto) 0.0, Sodium Level 141, Potassium Level 4.0, Chloride Level 96L, Carbon Dioxide Level 35H, Anion Gap 10, Blood Urea Nitrogen 12, Creatinine 0.60, Estimat Glomerular Filtration Rate > 60, BUN/ Creatinine Ratio 20, Glucose Level 151H, Calcium Level 10.3H 11/12/17 05:33: Glucometer 153H 11/12/17 10:58: Glucometer 265H 11/12/17 16:16: Glucometer 170H 11/12/17 19:44: Glucometer 265H 11/13/17 03:20: White Blood Count 7.0, Red Blood Count 3.54L, Hemoglobin 9.0L, Hematocrit 31L, Mean Corpuscular Volume 88, Mean Corpuscular Hemoglobin 25, Mean Corpuscular Hemoglobin Concent 29L, Red Cell Distribution Width 15.8H, Platelet Count 310, Mean Platelet Volume 10.5H, Sodium Level 139, Potassium Level 4.4, Chloride Level 94L, Carbon Dioxide Level 36H, Anion Gap 9, Blood Urea Nitrogen 10, Creatinine 0.60, Estimat Glomerular Filtration Rate > 60, BUN/Creatinine Ratio 17, Glucose Level 138H, Calcium Level 10.4H, Total Bilirubin 0.3, Aspartate Amino Transf (AST/SGOT) 18, Alanine Aminotransferase (ALT/SGPT) 35, Alkaline Phosphatase 68, Total Protein 6.1L, Albumin 3.3 11/13/17 05:46: Glucometer 144H 11/13/17 10:53: Glucometer 171H 11/13/17 15:38: Glucometer 139H 11/13/17 16:40: Glucometer 154H 11/13/17 20:42: Glucometer 228H 11/14/17 05:30: White Blood Count 8.7, Red Blood Count 3.25L, Hemoglobin 8.3L, Hematocrit 28L, Mean Corpuscular Volume 85, Mean Corpuscular Hemoglobin 26, Mean Corpuscular Hemoglobin Concent 30L, Red Cell Distribution Width 15.6H, Platelet Count 315, Mean Platelet Volume 10.6H, Sodium Level 138, Potassium Level 4.3, Chloride Level 95L, Carbon Dioxide Level 33H, Anion Gap 10, Blood Urea Nitrogen 7, Creatinine 0.55L, Estimat Glomerular Filtration Rate > 60, BUN/Creatinine Ratio 13, Glucose Level 197H, Calcium Level 9.8 11/14/17 06:05: Glucometer 198H 11/14/17 11:29: Glucometer 223H 11/14/17 16:12: Glucometer 218H 11/14/17 20:23: Glucometer 216H 11/15/17 05:00: White Blood Count 6.7, Red Blood Count 3.05L, Hemoglobin 7.7L, Hematocrit 26L, Mean Corpuscular Volume 84, Mean Corpuscular Hemoglobin 25, Mean Corpuscular Hemoglobin Concent 30L, Red Cell Distribution Width 16.4H, Platelet Count 310, Mean Platelet Volume 10.9H, Neutrophils (%) (Auto) 74, Lymphocytes (%) (Auto) 12 , Monocytes (%) (Auto) 12, Eosinophils (%) (Auto) 1, Basophils (%) (Auto) 0, Neutrophils # (Auto) 5.0, Lymphocytes # (Auto) 0.8L, Monocytes # (Auto) 0.8, Eosinophils # (Auto) 0.1, Basophils # (Auto) 0.0, B-Type Natriuretic Peptide 43.1 11/15/17 06:50: Sodium Level 138, Potassium Level 4.2, Chloride Level 96L, Carbon Dioxide Level 33H, Anion Gap 9, Blood Urea Nitrogen 8, Creatinine 0.58L, Estimat Glomerular Filtration Rate > 60, BUN/Creatinine Ratio 14, Glucose Level 179H, Calcium Level 10.2H, Total Bilirubin 0.4, Aspartate Amino Transf (AST/SGOT) 20, Alanine Aminotransferase (ALT/SGPT) 25, Alkaline Phosphatase 74, Total Protein 5.9L, Albumin 3.1L 11/15/17 06:58: Blood Gas Puncture Site LEFT RADIAL, Blood Gas Patient Temperature 98.9, Arterial Blood pH 7.41, Arterial Blood Partial Pressure CO2 59H, Arterial Blood Partial Pressure O2 100H, Arterial Blood HCO3 36H, Arterial Blood Total CO2 38.2H, Arterial Blood Oxygen Saturation 98, Arterial Blood Base Excess 11.3H, [place] Test YES-POS, Blood Gas Ventilator Setting NO, Blood Gas Inspired Oxygen 6L 11/15/17 11:20: Glucometer 163H 11/15/17 16:16: Glucometer 221H 11/15/17 20:34: Glucometer 158H 11/16/17 05:28: Glucometer 116H 11/16/17 06:38: White Blood Count 5.7, Red Blood Count 3.42L, Hemoglobin 8.5L, Hematocrit 29L, Mean Corpuscular Volume 85, Mean Corpuscular Hemoglobin 25, Mean Corpuscular Hemoglobin Concent 29L, Red Cell Distribution Width 15.6H, Platelet Count 326, Mean Platelet Volume 10.7H, Neutrophils (%) (Auto) 76H, Lymphocytes (%) (Auto) 14, Monocytes (%) (Auto) 8, Eosinophils (%) (Auto) 2, Basophils (%) (Auto) 0, Neutrophils # (Auto) 4.3, Lymphocytes # (Auto) 0.8L, Monocytes # (Auto) 0.5, Eosinophils # (Auto) 0.1, Basophils # (Auto) 0.0, Sodium Level 140, Potassium Level 4.2, Chloride Level 97L, Carbon Dioxide Level 32, Anion Gap 11, Blood Urea Nitrogen 8, Creatinine 0.56L, Estimat Glomerular Filtration Rate > 60, BUN/ Creatinine Ratio 14, Glucose Level 104, Calcium Level 10.4H 11/16/17 11:24: Glucometer 177H 11/16/17 16:30: Glucometer 193H 11/16/17 20:21: Glucometer 200H 11/17/17 06:05: White Blood Count 4.7, Red Blood Count 3.38L, Hemoglobin 8.5L, Hematocrit 29L, Mean Corpuscular Volume 85, Mean Corpuscular Hemoglobin 25, Mean Corpuscular Hemoglobin Concent 30L, Red Cell Distribution Width 15.7H, Platelet Count 351, Mean Platelet Volume 10.4, Neutrophils (%) (Auto) 72, Lymphocytes (%) (Auto) 15 , Monocytes (%) (Auto) 9, Eosinophils (%) (Auto) 3, Basophils (%) (Auto) 1, Neutrophils # (Auto) 3.4, Lymphocytes # (Auto) 0.7L, Monocytes # (Auto) 0.4, Eosinophils # (Auto) 0.1, Basophils # (Auto) 0.1, Sodium Level 139, Potassium Level 4.1, Chloride Level 97L, Carbon Dioxide Level 33H, Anion Gap 9, Blood Urea Nitrogen 7, Creatinine 0.62, Estimat Glomerular Filtration Rate > 60, BUN/ Creatinine Ratio 11, Glucose Level 147H, Calcium Level 10.4H 11/17/17 06:20: Glucometer 145H 11/17/17 11:06: Glucometer 264H Microbiology 10/30/17 Blood Culture - Final, Complete No growth 11/01/17 Gram Stain - Final, Complete 11/01/17 Sputum Culture - Final, Complete Usual/normal fang isolated. 10/30/17 Urine Culture - Final, Complete Nonenterococcus (Chains Cocci) Laboratory Tests 10/30/17 13:37 10/31/17 03:15 11/01/17 02:32 11/02/17 03:58 11/03/17 03:55 11/04/17 03:35 11/05/17 03:45 11/05/17 22:15 11/06/17 03:15 11/07/17 02:10 11/08/17 04:20 11/09/17 04:25 11/10/17 05:26 11/11/17 05:25 11/12/17 04:50 11/13/17 03:20 11/14/17 05:30 11/15/17 05:00 11/15/17 06:50 11/16/17 06:38 11/17/17 06:05 Pending Labs Microbiology Date/Time Source Procedure Growth Status 10/30/17 14:35 Peripheral Rt Hand Blood Culture - Final No growth Complete 10/30/17 14:30 Peripheral Rt Ac Blood Culture - Final No growth Complete 11/01/17 07:50 Sputum Endotracheal Gram Stain - Final Complete 11/01/17 07:50 Sputum Endotracheal Sputum Culture - Final Usual/normal fang isolated. Complete 10/30/17 16:07 Nasal MRSA Screen - Final MRSA not isolated Complete 10/30/17 14:30 Urine Straight Cath, In/Out Urine Culture - Final Nonenterococcus (Chains Cocci) Complete Laboratory Tests 10/30/17 13:37: White Blood Count 10.2, Red Blood Count 3.54, Hemoglobin 8.8, Hematocrit 32, Mean Corpuscular Volume 89, Mean Corpuscular Hemoglobin 25, Mean Corpuscular Hemoglobin Concent 28, Red Cell Distribution Width 16.0, Platelet Count 287, Mean Platelet Volume 11.3, Neutrophils (%) (Auto) 86, Lymphocytes (%) (Auto) 9, Monocytes (%) (Auto) 5, Eosinophils (%) (Auto) 0, Basophils (%) (Auto) 0, Neutrophils # (Auto) 8.8, Lymphocytes # (Auto) 0.9, Monocytes # (Auto) 0.5, Eosinophils # (Auto) 0.0, Basophils # (Auto) 0.0, Neutrophils % (Manual) 86, Lymphocytes % (Manual) 3, Monocytes % (Manual) 6, Eosinophils % (Manual) 1, Basophils % (Manual) 1, Band Neutrophils 1, Reactive Lymphocytes 2, Toxic Granulation 1+, Hypochromasia MODERATE, Poikilocytosis MARKED, Basophilic Stippling SLIGHT, Anisocytosis MODERATE, Stomatocytes MARKED, Elliptocytes SLIGHT, Sodium Level 141, Potassium Level 4.9, Chloride Level 99, Carbon Dioxide Level 37, Anion Gap 5, Blood Urea Nitrogen 31, Creatinine 0.78, Estimat Glomerular Filtration Rate > 60, BUN/Creatinine Ratio 40, Glucose Level 242, Calcium Level 9.2, Total Bilirubin 0.2, Aspartate Amino Transf (AST/SGOT) 13, Alanine Aminotransferase (ALT/SGPT) 15, Alkaline Phosphatase 63, B-Type Natriuretic Peptide 42.9, Total Protein 6.3, Albumin 3.6 10/30/17 14:01: Blood Gas Puncture Site L RAD, Blood Gas Patient Temperature 98.1, Arterial Blood pH 7.28, Arterial Blood Partial Pressure CO2 82, Arterial Blood Partial Pressure O2 55, Arterial Blood HCO3 37, Arterial Blood Total CO2 39.7, Arterial Blood Oxygen Saturation 93, Arterial Blood Base Excess 10.3, [place] Test YES-POS , Blood Gas Ventilator Setting NO, Blood Gas Inspired Oxygen 5L 10/30/17 14:30: Urine Color YELLOW, Urine Clarity CLEAR, Urine pH 5, Urine Specific [place] 1.025, Urine Protein 2+, Urine Glucose (UA) NEGATIVE, Urine Ketones NEGATIVE, Urine Nitrite NEGATIVE, Urine Bilirubin NEGATIVE, Urine Urobilinogen NORMAL, Urine Leukocyte Esterase 3+, Urine RBC (Auto) 1+, Urine RBC 0-2, Urine WBC 10-25 , Urine Squamous Epithelial Cells 10-25, Urine Renal Epithelial Cells NONE, Urine Crystals NONE, Urine Bacteria TRACE, Urine Casts PRESENT, Urine Hyaline Casts 10-25, Urine Mucus SMALL, Urine Culture Indicated YES, Lactic Acid Level 0.64 10/30/17 16:04: Blood Gas Puncture Site LEFT RADIAL, Blood Gas Patient Temperature 101, Arterial Blood pH 7.27, Arterial Blood Partial Pressure CO2 85, Arterial Blood Partial Pressure O2 105, Arterial Blood HCO3 38, Arterial Blood Total CO2 40.0, Arterial Blood Oxygen Saturation 98, Arterial Blood Base Excess 10.9, [place] Test POSITIVE, Blood Gas Ventilator Setting NO, Blood Gas Inspired Oxygen 50% BIPAP 10/30/17 17:25: Lactic Acid Level 0.72 10/30/17 18:30: Blood Gas Puncture Site LEFT RADIAL, Blood Gas Patient Temperature 101.8, Arterial Blood pH 7.29, Arterial Blood Partial Pressure CO2 82, Arterial Blood Partial Pressure O2 112, Arterial Blood HCO3 37, Arterial Blood Total CO2 39.4, Arterial Blood Oxygen Saturation 99, Arterial Blood Base Excess 10.8, [place] Test POSITIVE, Blood Gas Ventilator Setting NO, Blood Gas Inspired Oxygen 50% BIPAP 10/30/17 19:21: Glucometer 136 10/30/17 23:05: Blood Gas Puncture Site RIGHT RADIAL, Blood Gas Patient Temperature 98.9, Arterial Blood pH 7.32, Arterial Blood Partial Pressure CO2 70, Arterial Blood Partial Pressure O2 87, Arterial Blood HCO3 35, Arterial Blood Total CO2 36.8, Arterial Blood Oxygen Saturation 97, Arterial Blood Base Excess 8.6, [place] Test POSITIVE, Blood Gas Ventilator Setting NO, Blood Gas Inspired Oxygen 50% BIPAP 10/31/17 00:20: Glucometer 223 10/31/17 03:15: White Blood Count 8.4, Red Blood Count 3.23, Hemoglobin 8.1, Hematocrit 28, Mean Corpuscular Volume 88, Mean Corpuscular Hemoglobin 25, Mean Corpuscular Hemoglobin Concent 29, Red Cell Distribution Width 16.1, Platelet Count 252, Mean Platelet Volume 11.8, Neutrophils (%) (Auto) 95, Lymphocytes (%) (Auto) 2, Monocytes (%) (Auto) 2, Eosinophils (%) (Auto) 0, Basophils (%) (Auto) 0, Neutrophils # (Auto) 8.0, Lymphocytes # (Auto) 0.2, Monocytes # (Auto) 0.2, Eosinophils # (Auto) 0.0, Basophils # (Auto) 0.0, Sodium Level 141, Potassium Level 5.4, Chloride Level 103, Carbon Dioxide Level 33, Anion Gap 5, Blood Urea Nitrogen 31, Creatinine 0.78, Estimat Glomerular Filtration Rate > 60, BUN/ Creatinine Ratio 40, Glucose Level 204, Calcium Level 9.1, Phosphorus Level 2.2 , Magnesium Level 2.0, B-Type Natriuretic Peptide 26.9 10/31/17 03:40: Blood Gas Puncture Site RIGHT RADIAL, Blood Gas Patient Temperature 98.6, Arterial Blood pH 7.37, Arterial Blood Partial Pressure CO2 62, Arterial Blood Partial Pressure O2 82, Arterial Blood HCO3 35, Arterial Blood Total CO2 36.6, Arterial Blood Oxygen Saturation 98, Arterial Blood Base Excess 9.3, [place] Test YES-POS, Blood Gas Ventilator Setting NO, Blood Gas Inspired Oxygen 45% 10/31/17 11:13: Glucometer 182 10/31/17 12:55: Blood Gas Puncture Site RIGHT RADIAL, Blood Gas Patient Temperature 97.4, Arterial Blood pH 7.36, Arterial Blood Partial Pressure CO2 58, Arterial Blood Partial Pressure O2 92, Arterial Blood HCO3 32, Arterial Blood Total CO2 33.7, Arterial Blood Oxygen Saturation 98, Arterial Blood Base Excess 6.4, [place] Test POSITIVE, Blood Gas Ventilator Setting NO, Blood Gas Inspired Oxygen 40% BIPAP 10/31/17 18:04: Glucometer 152 10/31/17 23:58: Glucometer 155 11/01/17 02:18: Blood Gas Puncture Site LT RAD, Blood Gas Patient Temperature 98.4, Arterial Blood pH 7.46, Arterial Blood Partial Pressure CO2 38, Arterial Blood Partial Pressure O2 69, Arterial Blood HCO3 27, Arterial Blood Total CO2 28.0, Arterial Blood Oxygen Saturation 96, Arterial Blood Base Excess 3.2, [place] Test YES-POS, Blood Gas Ventilator Setting NO, Blood Gas Inspired Oxygen 25% BIPAP 11/01/17 02:32: White Blood Count 6.9, Red Blood Count 3.19, Hemoglobin 8.1, Hematocrit 27, Mean Corpuscular Volume 84, Mean Corpuscular Hemoglobin 25, Mean Corpuscular Hemoglobin Concent 30, Red Cell Distribution Width 15.9, Platelet Count 296, Mean Platelet Volume 10.8, Neutrophils (%) (Auto) 89, Lymphocytes (%) (Auto) 8, Monocytes (%) (Auto) 4, Eosinophils (%) (Auto) 0, Basophils (%) (Auto) 0, Neutrophils # (Auto) 6.1, Lymphocytes # (Auto) 0.5, Monocytes # (Auto) 0.3, Eosinophils # (Auto) 0.0, Basophils # (Auto) 0.0, Sodium Level 140, Potassium Level 4.7, Chloride Level 105, Carbon Dioxide Level 26, Anion Gap 9, Blood Urea Nitrogen 32, Creatinine 0.70, Estimat Glomerular Filtration Rate > 60, BUN/ Creatinine Ratio 46, Glucose Level 166, Calcium Level 9.0, Phosphorus Level 2.3 , Magnesium Level 1.9 11/01/17 08:05: Blood Gas Puncture Site LEFT RADIAL, Blood Gas Patient Temperature 97.8, Arterial Blood pH 7.37, Arterial Blood Partial Pressure CO2 48, Arterial Blood Partial Pressure O2 259, Arterial Blood HCO3 27, Arterial Blood Total CO2 28.8, Arterial Blood Oxygen Saturation 100, Arterial Blood Base Excess 2.5, [place] Test POSITIVE, Blood Gas Ventilator Setting YES, Blood Gas Inspired Oxygen 100% 11/01/17 12:08: Glucometer 195 11/01/17 18:13: Glucometer 184 11/02/17 00:26: Glucometer 209 11/02/17 03:58: White Blood Count 6.8, Red Blood Count 3.02, Hemoglobin 7.5, Hematocrit 25, Mean Corpuscular Volume 83, Mean Corpuscular Hemoglobin 25, Mean Corpuscular Hemoglobin Concent 30, Red Cell Distribution Width 16.8, Platelet Count 312, Mean Platelet Volume 11.5, Neutrophils (%) (Auto) 85, Lymphocytes (%) (Auto) 8, Monocytes (%) (Auto) 7, Eosinophils (%) (Auto) 0, Basophils (%) (Auto) 0, Neutrophils # (Auto) 5.8, Lymphocytes # (Auto) 0.6, Monocytes # (Auto) 0.5, Eosinophils # (Auto) 0.0, Basophils # (Auto) 0.0, Sodium Level 142, Potassium Level 3.7, Chloride Level 109, Carbon Dioxide Level 24, Anion Gap 9, Blood Urea Nitrogen 18, Creatinine 0.70, Estimat Glomerular Filtration Rate > 60, BUN/ Creatinine Ratio 26, Glucose Level 177, Calcium Level 8.9, Phosphorus Level 2.7 , Magnesium Level 1.8 11/02/17 04:00: Blood Gas Puncture Site LT RADIAL, Blood Gas Patient Temperature 98.8, Arterial Blood pH 7.39, Arterial Blood Partial Pressure CO2 44, Arterial Blood Partial Pressure O2 80, Arterial Blood HCO3 26, Arterial Blood Total CO2 27.5, Arterial Blood Oxygen Saturation 96, Arterial Blood Base Excess 1.7, [place] Test YES-POS, Blood Gas Ventilator Setting YES, Blood Gas Inspired Oxygen 30% 11/02/17 11:40: Glucometer 219 11/02/17 17:43: Glucometer 214 11/03/17 00:08: Glucometer 222 11/03/17 03:25: Blood Gas Puncture Site LEFT RADIAL, Blood Gas Patient Temperature 98.7, Arterial Blood pH 7.38, Arterial Blood Partial Pressure CO2 44, Arterial Blood Partial Pressure O2 68, Arterial Blood HCO3 25, Arterial Blood Total CO2 26.8, Arterial Blood Oxygen Saturation 94, Arterial Blood Base Excess 0.9, [place] Test YES-POS, Blood Gas Ventilator Setting YES, Blood Gas Inspired Oxygen 30% 11/03/17 03:30: Stool Occult Blood Immunoassay NEGATIVE 11/03/17 03:55: White Blood Count 6.6, Red Blood Count 3.11, Hemoglobin 7.8, Hematocrit 26, Mean Corpuscular Volume 84, Mean Corpuscular Hemoglobin 25, Mean Corpuscular Hemoglobin Concent 30, Red Cell Distribution Width 17.0, Platelet Count 286, Mean Platelet Volume 11.1, Neutrophils (%) (Auto) 92, Lymphocytes (%) (Auto) 4, Monocytes (%) (Auto) 4, Eosinophils (%) (Auto) 0, Basophils (%) (Auto) 0, Neutrophils # (Auto) 6.0, Lymphocytes # (Auto) 0.3, Monocytes # (Auto) 0.3, Eosinophils # (Auto) 0.0, Basophils # (Auto) 0.0, Sodium Level 143, Potassium Level 3.7, Chloride Level 110, Carbon Dioxide Level 23, Anion Gap 10, Blood Urea Nitrogen 19, Creatinine 0.68, Estimat Glomerular Filtration Rate > 60, BUN/ Creatinine Ratio 28, Glucose Level 234, Calcium Level 8.9, Phosphorus Level 2.6 , Magnesium Level 1.9 11/03/17 11:21: Glucometer 249 11/03/17 17:50: Gastric Fluid Occult Blood POSITIVE 11/03/17 17:57: Glucometer 245 11/03/17 23:57: Glucometer 230 11/04/17 03:10: Blood Gas Puncture Site RIGHT RADIAL, Blood Gas Patient Temperature 97.2, Arterial Blood pH 7.43, Arterial Blood Partial Pressure CO2 40, Arterial Blood Partial Pressure O2 82, Arterial Blood HCO3 26, Arterial Blood Total CO2 27.1, Arterial Blood Oxygen Saturation 99, Arterial Blood Base Excess 1.7, [place] Test YES-POS, Blood Gas Ventilator Setting YES, Blood Gas Inspired Oxygen 30% 11/04/17 03:35: White Blood Count 9.5, Red Blood Count 2.92, Hemoglobin 7.7, Hematocrit 25, Mean Corpuscular Volume 85, Mean Corpuscular Hemoglobin 26, Mean Corpuscular Hemoglobin Concent 31, Red Cell Distribution Width 17.2, Platelet Count 257, Mean Platelet Volume 11.2, Neutrophils (%) (Auto) 92, Lymphocytes (%) (Auto) 3, Monocytes (%) (Auto) 5, Eosinophils (%) (Auto) 0, Basophils (%) (Auto) 0, Neutrophils # (Auto) 8.7, Lymphocytes # (Auto) 0.3, Monocytes # (Auto) 0.5, Eosinophils # (Auto) 0.0, Basophils # (Auto) 0.0, Sodium Level 139, Potassium Level 3.6, Chloride Level 110, Carbon Dioxide Level 23, Anion Gap 6, Blood Urea Nitrogen 19, Creatinine 0.59, Estimat Glomerular Filtration Rate > 60, BUN/ Creatinine Ratio 32, Glucose Level 210, Calcium Level 8.2, Phosphorus Level 2.4 , Magnesium Level 2.0 11/04/17 09:26: Blood Gas Puncture Site R RAD, Blood Gas Patient Temperature 98.9, Arterial Blood pH 7.39, Arterial Blood Partial Pressure CO2 44, Arterial Blood Partial Pressure O2 56, Arterial Blood HCO3 27, Arterial Blood Total CO2 27.8, Arterial Blood Oxygen Saturation 88, Arterial Blood Base Excess 2.1, [place] Test YES-POS, Blood Gas Ventilator Setting YES, Blood Gas Inspired Oxygen 25% 11/04/17 12:25: Blood Gas Puncture Site R RAD, Blood Gas Patient Temperature 99.3, Arterial Blood pH 7.40, Arterial Blood Partial Pressure CO2 44, Arterial Blood Partial Pressure O2 80, Arterial Blood HCO3 27, Arterial Blood Total CO2 28.2, Arterial Blood Oxygen Saturation 97, Arterial Blood Base Excess 2.6, [place] Test YES-POS, Blood Gas Ventilator Setting YES, Blood Gas Inspired Oxygen 35% 11/04/17 12:43: Glucometer 242 11/04/17 18:13: Glucometer 204 11/05/17 03:45: White Blood Count 16.9, Red Blood Count 3.93, Hemoglobin 10.0, Hematocrit 33, Mean Corpuscular Volume 84, Mean Corpuscular Hemoglobin 25, Mean Corpuscular Hemoglobin Concent 30, Red Cell Distribution Width 17.3, Platelet Count 327, Mean Platelet Volume 10.8, Neutrophils (%) (Auto) 85, Lymphocytes (%) (Auto) 6, Monocytes (%) (Auto) 9, Eosinophils (%) (Auto) 0, Basophils (%) (Auto) 0, Neutrophils # (Auto) 14.4, Lymphocytes # (Auto) 1.0, Monocytes # (Auto) 1.5, Eosinophils # (Auto) 0.0, Basophils # (Auto) 0.0, Sodium Level 148, Potassium Level 4.0, Chloride Level 114, Carbon Dioxide Level 26, Anion Gap 8, Blood Urea Nitrogen 22, Creatinine 0.66, Estimat Glomerular Filtration Rate > 60, BUN/ Creatinine Ratio 33, Glucose Level 170, Calcium Level 9.3, Phosphorus Level 2.8 , Magnesium Level 2.0, B-Type Natriuretic Peptide 209.3 11/05/17 04:02: Blood Gas Puncture Site RIGHT RADIAL, Blood Gas Patient Temperature 98.6, Arterial Blood pH 7.37, Arterial Blood Partial Pressure CO2 50, Arterial Blood Partial Pressure O2 91, Arterial Blood HCO3 28, Arterial Blood Total CO2 29.3, Arterial Blood Oxygen Saturation 98, Arterial Blood Base Excess 2.9, [place] Test YES-POS, Blood Gas Ventilator Setting NO, Blood Gas Inspired Oxygen 35% 11/05/17 11:58: Glucometer 225 11/05/17 17:45: Glucometer 157 11/05/17 21:50: Blood Gas Puncture Site RT RAD, Blood Gas Patient Temperature 99.4, Arterial Blood pH 7.39, Arterial Blood Partial Pressure CO2 51, Arterial Blood Partial Pressure O2 50, Arterial Blood HCO3 30, Arterial Blood Total CO2 31.9, Arterial Blood Oxygen Saturation 83, Arterial Blood Base Excess 5.7, [place] Test YES-POS, Blood Gas Ventilator Setting NO, Blood Gas Inspired Oxygen 2L 11/05/17 22:15: White Blood Count 14.5, Red Blood Count 3.78, Hemoglobin 9.6, Hematocrit 32, Mean Corpuscular Volume 84, Mean Corpuscular Hemoglobin 25, Mean Corpuscular Hemoglobin Concent 30, Red Cell Distribution Width 16.9, Platelet Count 263, Mean Platelet Volume 10.4, Neutrophils (%) (Auto) 94, Lymphocytes (%) (Auto) 3, Monocytes (%) (Auto) 3, Eosinophils (%) (Auto) 0, Basophils (%) (Auto) 0, Neutrophils # (Auto) 13.7, Lymphocytes # (Auto) 0.4, Monocytes # (Auto) 0.4, Eosinophils # (Auto) 0.0, Basophils # (Auto) 0.0, Neutrophils % (Manual) 94, Lymphocytes % (Manual) 3, Monocytes % (Manual) 3, Eosinophils % (Manual) 0, Basophils % (Manual) 0, Band Neutrophils 0, Blood Morphology Comment NORMAL, Sodium Level 141, Potassium Level 4.0, Chloride Level 103, Carbon Dioxide Level 28, Anion Gap 10, Blood Urea Nitrogen 22, Creatinine 0.65, Estimat Glomerular Filtration Rate > 60, BUN/Creatinine Ratio 34, Glucose Level 220, Lactic Acid Level 0.58, Calcium Level 9.4, Magnesium Level 1.6, Total Bilirubin 0.4, Direct Bilirubin 0.2, Indirect Bilirubin 0.2, Aspartate Amino Transf (AST/SGOT) 18, Alanine Aminotransferase (ALT/SGPT) 27, Alkaline Phosphatase 54, Total Protein 5.8, Albumin 3.4 11/06/17 03:15: White Blood Count 12.9, Red Blood Count 3.82, Hemoglobin 9.7, Hematocrit 32, Mean Corpuscular Volume 84, Mean Corpuscular Hemoglobin 25, Mean Corpuscular Hemoglobin Concent 30, Red Cell Distribution Width 17.0, Platelet Count 256, Mean Platelet Volume 10.5, Neutrophils (%) (Auto) 89, Lymphocytes (%) (Auto) 5, Monocytes (%) (Auto) 5, Eosinophils (%) (Auto) 0, Basophils (%) (Auto) 0, Neutrophils # (Auto) 11.6, Lymphocytes # (Auto) 0.7, Monocytes # (Auto) 0.7, Eosinophils # (Auto) 0.0, Basophils # (Auto) 0.0, Sodium Level 142, Potassium Level 4.1, Chloride Level 103, Carbon Dioxide Level 30, Anion Gap 9, Blood Urea Nitrogen 22, Creatinine 0.63, Estimat Glomerular Filtration Rate > 60, BUN/ Creatinine Ratio 35, Glucose Level 217, Calcium Level 9.4, Magnesium Level 1.8, Phosphorus Level 4.3 11/06/17 03:35: Blood Gas Puncture Site L RAD, Blood Gas Patient Temperature 98.3, Arterial Blood pH 7.39, Arterial Blood Partial Pressure CO2 53, Arterial Blood Partial Pressure O2 71, Arterial Blood HCO3 31, Arterial Blood Total CO2 33.1, Arterial Blood Oxygen Saturation 95, Arterial Blood Base Excess 6.5, [place] Test YES-POS, Blood Gas Ventilator Setting NO, Blood Gas Inspired Oxygen 35% FIO2 11/06/17 09:32: Lab Scanned Report Transfusion Reaction Form 11/06/17 11:15: Glucometer 195 11/06/17 18:22: Glucometer 194 11/07/17 02:10: White Blood Count 9.9, Red Blood Count 3.87, Hemoglobin 9.7, Hematocrit 32, Mean Corpuscular Volume 83, Mean Corpuscular Hemoglobin 25, Mean Corpuscular Hemoglobin Concent 30, Red Cell Distribution Width 16.4, Platelet Count 243, Mean Platelet Volume 11.1, Neutrophils (%) (Auto) 81, Lymphocytes (%) (Auto) 10 , Monocytes (%) (Auto) 7, Eosinophils (%) (Auto) 2, Basophils (%) (Auto) 0, Neutrophils # (Auto) 8.0, Lymphocytes # (Auto) 1.0, Monocytes # (Auto) 0.7, Eosinophils # (Auto) 0.2, Basophils # (Auto) 0.0, Blood Gas Puncture Site R RAD , Blood Gas Patient Temperature 98.0, Arterial Blood pH 7.44, Arterial Blood Partial Pressure CO2 51, Arterial Blood Partial Pressure O2 76, Arterial Blood HCO3 34, Arterial Blood Total CO2 35.7, Arterial Blood Oxygen Saturation 97, Arterial Blood Base Excess 9.5, [place] Test YES-POS, Blood Gas Ventilator Setting NO, Blood Gas Inspired Oxygen 35% BIPAP, Sodium Level 141, Potassium Level 3.5, Chloride Level 99, Carbon Dioxide Level 34, Anion Gap 8, Blood Urea Nitrogen 17, Creatinine 0.57, Estimat Glomerular Filtration Rate > 60, BUN/ Creatinine Ratio 30, Glucose Level 147, Calcium Level 9.2, Phosphorus Level 3.4 , Magnesium Level 1.6 11/07/17 12:25: Glucometer 210 11/07/17 15:51: Glucometer 197 11/07/17 20:53: Glucometer 201 11/08/17 04:20: White Blood Count 10.4, Red Blood Count 3.79, Hemoglobin 9.6, Hematocrit 31, Mean Corpuscular Volume 83, Mean Corpuscular Hemoglobin 25, Mean Corpuscular Hemoglobin Concent 31, Red Cell Distribution Width 16.5, Platelet Count 223, Mean Platelet Volume 11.7, Neutrophils (%) (Auto) 84, Lymphocytes (%) (Auto) 8, Monocytes (%) (Auto) 7, Eosinophils (%) (Auto) 1, Basophils (%) (Auto) 0, Neutrophils # (Auto) 8.7, Lymphocytes # (Auto) 0.9, Monocytes # (Auto) 0.8, Eosinophils # (Auto) 0.1, Basophils # (Auto) 0.0, Sodium Level 139, Potassium Level 3.6, Chloride Level 99, Carbon Dioxide Level 30, Anion Gap 10, Blood Urea Nitrogen 18, Creatinine 0.63, Estimat Glomerular Filtration Rate > 60, BUN/ Creatinine Ratio 29, Glucose Level 164, Calcium Level 9.8 11/08/17 11:09: Glucometer 205 11/08/17 16:15: Glucometer 227 11/08/17 20:47: Glucometer 177 11/09/17 04:25: White Blood Count 10.2, Red Blood Count 3.59, Hemoglobin 9.1, Hematocrit 29, Mean Corpuscular Volume 80, Mean Corpuscular Hemoglobin 25, Mean Corpuscular Hemoglobin Concent 32, Red Cell Distribution Width 16.1, Platelet Count 216, Mean Platelet Volume 11.1, Neutrophils (%) (Auto) 82, Lymphocytes (%) (Auto) 9, Monocytes (%) (Auto) 8, Eosinophils (%) (Auto) 1, Basophils (%) (Auto) 0, Neutrophils # (Auto) 8.4, Lymphocytes # (Auto) 0.9, Monocytes # (Auto) 0.8, Eosinophils # (Auto) 0.1, Basophils # (Auto) 0.0, Sodium Level 139, Potassium Level 3.6, Chloride Level 98, Carbon Dioxide Level 29, Anion Gap 12, Blood Urea Nitrogen 14, Creatinine 0.56, Estimat Glomerular Filtration Rate > 60, BUN/ Creatinine Ratio 25, Glucose Level 140, Calcium Level 9.7 11/09/17 11:21: Glucometer 159 11/09/17 16:05: Glucometer 189 11/09/17 20:24: Glucometer 195 11/10/17 05:26: White Blood Count 8.5, Red Blood Count 3.59, Hemoglobin 9.2, Hematocrit 29, Mean Corpuscular Volume 81, Mean Corpuscular Hemoglobin 26, Mean Corpuscular Hemoglobin Concent 32, Red Cell Distribution Width 16.2, Platelet Count 218, Mean Platelet Volume 11.1, Neutrophils (%) (Auto) 76, Lymphocytes (%) (Auto) 12 , Monocytes (%) (Auto) 11, Eosinophils (%) (Auto) 1, Basophils (%) (Auto) 0, Neutrophils # (Auto) 6.5, Lymphocytes # (Auto) 1.0, Monocytes # (Auto) 0.9, Eosinophils # (Auto) 0.1, Basophils # (Auto) 0.0, Sodium Level 138, Potassium Level 3.7, Chloride Level 96, Carbon Dioxide Level 32, Anion Gap 10, Blood Urea Nitrogen 14, Creatinine 0.60, Estimat Glomerular Filtration Rate > 60, BUN/ Creatinine Ratio 23, Glucose Level 148, Calcium Level 9.9 11/10/17 05:32: Glucometer 143 11/10/17 11:32: Glucometer 189 11/10/17 16:16: Glucometer 268 11/10/17 21:12: Glucometer 162 11/11/17 05:25: White Blood Count 8.6, Red Blood Count 3.53, Hemoglobin 9.0, Hematocrit 30, Mean Corpuscular Volume 85, Mean Corpuscular Hemoglobin 26, Mean Corpuscular Hemoglobin Concent 30, Red Cell Distribution Width 16.0, Platelet Count 249, Mean Platelet Volume 11.2, Sodium Level 140, Potassium Level 3.6, Chloride Level 98, Carbon Dioxide Level 34, Anion Gap 8, Blood Urea Nitrogen 15, Creatinine 0.60, Estimat Glomerular Filtration Rate > 60, BUN/Creatinine Ratio 25, Glucose Level 138, Calcium Level 10.0, Total Bilirubin 0.5, Aspartate Amino Transf (AST/SGOT) 23, Alanine Aminotransferase (ALT/SGPT) 37, Alkaline Phosphatase 60, Total Protein 5.8, Albumin 3.1 11/11/17 05:47: Glucometer 135 11/11/17 10:58: Glucometer 297 11/11/17 16:25: Glucometer 235 11/11/17 20:58: Glucometer 223 11/12/17 04:50: White Blood Count 6.7, Red Blood Count 3.63, Hemoglobin 9.1, Hematocrit 32, Mean Corpuscular Volume 88, Mean Corpuscular Hemoglobin 25, Mean Corpuscular Hemoglobin Concent 29, Red Cell Distribution Width 15.8, Platelet Count 288, Mean Platelet Volume 11.6, Neutrophils (%) (Auto) 74, Lymphocytes (%) (Auto) 14 , Monocytes (%) (Auto) 10, Eosinophils (%) (Auto) 2, Basophils (%) (Auto) 0, Neutrophils # (Auto) 4.9, Lymphocytes # (Auto) 1.0, Monocytes # (Auto) 0.7, Eosinophils # (Auto) 0.1, Basophils # (Auto) 0.0, Sodium Level 141, Potassium Level 4.0, Chloride Level 96, Carbon Dioxide Level 35, Anion Gap 10, Blood Urea Nitrogen 12, Creatinine 0.60, Estimat Glomerular Filtration Rate > 60, BUN/ Creatinine Ratio 20, Glucose Level 151, Calcium Level 10.3 11/12/17 05:33: Glucometer 153 11/12/17 10:58: Glucometer 265 11/12/17 16:16: Glucometer 170 11/12/17 19:44: Glucometer 265 11/13/17 03:20: White Blood Count 7.0, Red Blood Count 3.54, Hemoglobin 9.0, Hematocrit 31, Mean Corpuscular Volume 88, Mean Corpuscular Hemoglobin 25, Mean Corpuscular Hemoglobin Concent 29, Red Cell Distribution Width 15.8, Platelet Count 310, Mean Platelet Volume 10.5, Sodium Level 139, Potassium Level 4.4, Chloride Level 94, Carbon Dioxide Level 36, Anion Gap 9, Blood Urea Nitrogen 10, Creatinine 0.60, Estimat Glomerular Filtration Rate > 60, BUN/Creatinine Ratio 17, Glucose Level 138, Calcium Level 10.4, Total Bilirubin 0.3, Aspartate Amino Transf (AST/SGOT) 18, Alanine Aminotransferase (ALT/SGPT) 35, Alkaline Phosphatase 68, Total Protein 6.1, Albumin 3.3 11/13/17 05:46: Glucometer 144 11/13/17 10:53: Glucometer 171 11/13/17 15:38: Glucometer 139 11/13/17 16:40: Glucometer 154 11/13/17 20:42: Glucometer 228 11/14/17 05:30: White Blood Count 8.7, Red Blood Count 3.25, Hemoglobin 8.3, Hematocrit 28, Mean Corpuscular Volume 85, Mean Corpuscular Hemoglobin 26, Mean Corpuscular Hemoglobin Concent 30, Red Cell Distribution Width 15.6, Platelet Count 315, Mean Platelet Volume 10.6, Sodium Level 138, Potassium Level 4.3, Chloride Level 95, Carbon Dioxide Level 33, Anion Gap 10, Blood Urea Nitrogen 7, Creatinine 0.55, Estimat Glomerular Filtration Rate > 60, BUN/Creatinine Ratio 13, Glucose Level 197, Calcium Level 9.8 11/14/17 06:05: Glucometer 198 11/14/17 11:29: Glucometer 223 11/14/17 16:12: Glucometer 218 11/14/17 20:23: Glucometer 216 11/15/17 05:00: White Blood Count 6.7, Red Blood Count 3.05, Hemoglobin 7.7, Hematocrit 26, Mean Corpuscular Volume 84, Mean Corpuscular Hemoglobin 25, Mean Corpuscular Hemoglobin Concent 30, Red Cell Distribution Width 16.4, Platelet Count 310, Mean Platelet Volume 10.9, Neutrophils (%) (Auto) 74, Lymphocytes (%) (Auto) 12 , Monocytes (%) (Auto) 12, Eosinophils (%) (Auto) 1, Basophils (%) (Auto) 0, Neutrophils # (Auto) 5.0, Lymphocytes # (Auto) 0.8, Monocytes # (Auto) 0.8, Eosinophils # (Auto) 0.1, Basophils # (Auto) 0.0, B-Type Natriuretic Peptide 43.1 11/15/17 06:50: Sodium Level 138, Potassium Level 4.2, Chloride Level 96, Carbon Dioxide Level 33, Anion Gap 9, Blood Urea Nitrogen 8, Creatinine 0.58, Estimat Glomerular Filtration Rate > 60, BUN/Creatinine Ratio 14, Glucose Level 179, Calcium Level 10.2, Total Bilirubin 0.4, Aspartate Amino Transf (AST/SGOT) 20, Alanine Aminotransferase (ALT/SGPT) 25, Alkaline Phosphatase 74, Total Protein 5.9, Albumin 3.1 11/15/17 06:58: Blood Gas Puncture Site LEFT RADIAL, Blood Gas Patient Temperature 98.9, Arterial Blood pH 7.41, Arterial Blood Partial Pressure CO2 59, Arterial Blood Partial Pressure O2 100, Arterial Blood HCO3 36, Arterial Blood Total CO2 38.2, Arterial Blood Oxygen Saturation 98, Arterial Blood Base Excess 11.3, [place] Test YES-POS, Blood Gas Ventilator Setting NO, Blood Gas Inspired Oxygen 6L 11/15/17 11:20: Glucometer 163 11/15/17 16:16: Glucometer 221 11/15/17 20:34: Glucometer 158 11/16/17 05:28: Glucometer 116 11/16/17 06:38: White Blood Count 5.7, Red Blood Count 3.42, Hemoglobin 8.5, Hematocrit 29, Mean Corpuscular Volume 85, Mean Corpuscular Hemoglobin 25, Mean Corpuscular Hemoglobin Concent 29, Red Cell Distribution Width 15.6, Platelet Count 326, Mean Platelet Volume 10.7, Neutrophils (%) (Auto) 76, Lymphocytes (%) (Auto) 14 , Monocytes (%) (Auto) 8, Eosinophils (%) (Auto) 2, Basophils (%) (Auto) 0, Neutrophils # (Auto) 4.3, Lymphocytes # (Auto) 0.8, Monocytes # (Auto) 0.5, Eosinophils # (Auto) 0.1, Basophils # (Auto) 0.0, Sodium Level 140, Potassium Level 4.2, Chloride Level 97, Carbon Dioxide Level 32, Anion Gap 11, Blood Urea Nitrogen 8, Creatinine 0.56, Estimat Glomerular Filtration Rate > 60, BUN/ Creatinine Ratio 14, Glucose Level 104, Calcium Level 10.4 11/16/17 11:24: Glucometer 177 11/16/17 16:30: Glucometer 193 11/16/17 20:21: Glucometer 200 11/17/17 06:05: White Blood Count 4.7, Red Blood Count 3.38, Hemoglobin 8.5, Hematocrit 29, Mean Corpuscular Volume 85, Mean Corpuscular Hemoglobin 25, Mean Corpuscular Hemoglobin Concent 30, Red Cell Distribution Width 15.7, Platelet Count 351, Mean Platelet Volume 10.4, Neutrophils (%) (Auto) 72, Lymphocytes (%) (Auto) 15 , Monocytes (%) (Auto) 9, Eosinophils (%) (Auto) 3, Basophils (%) (Auto) 1, Neutrophils # (Auto) 3.4, Lymphocytes # (Auto) 0.7, Monocytes # (Auto) 0.4, Eosinophils # (Auto) 0.1, Basophils # (Auto) 0.1, Sodium Level 139, Potassium Level 4.1, Chloride Level 97, Carbon Dioxide Level 33, Anion Gap 9, Blood Urea Nitrogen 7, Creatinine 0.62, Estimat Glomerular Filtration Rate > 60, BUN/ Creatinine Ratio 11, Glucose Level 147, Calcium Level 10.4 11/17/17 06:20: Glucometer 145 11/17/17 11:06: Glucometer 264 Discharge Home Medications: Active Scripts Active Aspirin 325 Mg Tablet 325 Mg PO BID 30 Days Reported Proair Hfa (Albuterol Sulfate) 1 Puff Puff 2 Puff IH QID PRN 1 PUFF = 90 MCG Nasal Decongestant (Oxymetazoline HCl) 30 Ml [place] 2 [place] NS Q4H PRN Tylenol Pm Ex-Strength Caplet (Acetaminophen/Diphenhydramine) 1 Each Tablet 2 Each PO HS Albuterol Sulfate 2.5 Mg/3 Ml Vial.neb 2.5 Mg NEB Q4H PRN Levemir Flextouch (Insulin Detemir) 100 Unit/1 Ml Insuln.pen 15 Unit SQ 1100 Centrum Silver Tablet (Multivit-Min/FA/Lycopene/Lut) 1 Each Tablet 1 Tab PO DAILY Metformin HCl 500 Mg Tablet 1,000 Mg PO BID TAKES 2 (500MG) TABLETS Sertraline HCl 50 Mg Tablet 50 Mg PO HS Amlodipine Besylate 10 Mg Tablet 10 Mg PO DAILY Naproxen 500 Mg Tablet 500 Mg PO BID Furosemide 40 Mg Tablet 40 Mg PO DAILY Pramipexole Dihydrochloride (Pramipexole Di-HCl) 1 Mg Tablet 1 Mg PO HS Hydrocodon-Acetaminophn 10-325 (Hydrocodone/Acetaminophen) 1 Each Tablet 1 Tab PO QID PRN Glimepiride 4 Mg Tablet 4 Mg PO BID Spiriva Respimat 2.5MCG/ACTUATION (Tiotropium [place]) 4 Gm Mist.inhal 2 Puff IH DAILY Symbicort 160-4.5 Mcg Inhaler (Budesonide/Formoterol Fumarate) 10.2 Gm Hfa.aer.ad 2 Puff IH BID Potassium Chloride 10 Meq Capsule.er 10 Meq PO HS Gabapentin 300 Mg Capsule 300 Mg PO BID Atorvastatin Calcium 10 Mg Tablet 10 Mg PO HS Instructions to patient/family Please see electronic discharge instructions given to patient. Clinical Quality Measures DVT/VTE Risk/Contraindication: Risk Factor Score Per Nursin RFS Level Per Nursing on Admit: 4+=Very High Contraindications-Pharm: Other *list below* Contraindications-Mechi: Other *list below* RADHA HAYES DO Nov 18, 2017 07:10
--- NOTE | 2017-11-18 15:13 | OPERATIVE REPORT ---
DATE OF SERVICE: 11/13/2017 PREOPERATIVE DIAGNOSES: 1. Displaced, unstable trimalleolar fracture of right ankle. 2. Status post closed reduction and application of ankle spanning external fixator, right ankle. POSTOPERATIVE DIAGNOSES; 1. Displaced, unstable trimalleolar fracture of right ankle. 2. Status post closed reduction and application of ankle spanning external fixator, right ankle. PROCEDURE: 1. Removal of external fixator, right ankle. 2. Open reduction and internal fixation of right lateral malleolus fracture and right medial malleolus fracture. 3. Closed treatment of right posterior malleolus fracture. ATTENDING SURGEON: Dr. Zeeshan Ramachandran. ANESTHESIA: Spinal. ESTIMATED BLOOD LOSS: 50 mL. COMPLICATIONS: None. SPECIMENS: None. DRAINS: None. BRIEF HISTORY AND INDICATIONS: The patient is a 66-year-old female with a history of multiple medical comorbidities including severe COPD. The patient had sustained a displaced, unstable trimalleolar fracture of her right ankle on 10/30/2017. At that time, she was admitted to the medicine service secondary to an acute exacerbation of COPD. The orthopedic service was consulted for definitive management of her right ankle injury. The patient underwent temporizing stabilization with application of an external fixator of her right ankle secondary to her medical status and profound soft tissue swelling of her right ankle. She is being brought back to the OR today for removal of the external fixator followed by definitive fixation of her right ankle injury. I discussed the surgical plan in detail with the patient as well as her family members preoperatively including the risks, benefits, potential complications and expected outcomes. Those risks that were discussed included bleeding, infection, damage to surrounding neurovascular structures, nonunion, irritation of the hardware and potential need for secondary surgical procedures. The patient gave informed consent to proceed as planned after all of her questions were answered to her satisfaction. PROCEDURE NOTE: After correctly identifying the patient as the patient in the preoperative holding area and after her right lower extremity was appropriately marked, she was transferred to the operating room. Once in the operating room, she had successful induction of spinal anesthesia, then she was transferred to a radiolucent OR table and placed in the supine position. All bony prominences were meticulously padded. A tourniquet was not used during this case. Soft bump was placed underneath the right hip to maintain neutral rotation of the right lower extremity. We then removed the external fixator from the right ankle using standard technique. The right leg was then prepped and draped in the routine sterile fashion. Prior to beginning the case, we completed an operating time out with all parties involved in the case and agreement and verified appropriate infusion of prophylactic antibiotics. I first addressed the displaced lateral malleolus fracture. A #10-blade scalpel was used to make an incision directly over the distal fibula of approximately 8 cm in length incising through skin and subcutaneous tissue. Blunt Metzenbaum scissors were then used to dissect the deeper fascia and to protect the superficial branch of the peroneal nerve. The comminuted fracture of the distal fibula was exposed and debrided in the usual fashion to minimize periosteal stripping. I then used a dnlhl-ui-jakut reduction tenaculums to achieve an anatomic reduction of the lateral malleolus fracture. I then applied a 2.7 fully threaded cortical lag screw to achieve primary fixation of the fracture. This lag screw fixation was then neutralized with a Synthes variable angle distal fibula locking plate, placed in the neutralization mode. The plate was placed on the lateral distal fibula and held temporarily in place with K-wires placed through the plate. After I verified with C-arm fluoroscopy this plate was in the appropriate position. Also with the C-arm fluoroscopy, I verified that the distal fibular fracture was anatomically reduced. Once the plate was in place, I then applied the fixation using a series of both locking and nonlocking screws. Once this was complete, I verified with C-arm fluoroscopy that the plate and all the screws were in appropriate position. This wound was then irrigated with copious amounts of sterile saline and then a standard closure of this wound was completed using 0 Vicryl for the deep fascia, 2-0 Vicryl for the subcutaneous tissue and a running subcuticular 4-0 Monocryl stitch and Steri-Strips for the skin. I then turned my attention to the medial malleolus fracture. A #10-blade scalpel was used to make an incision directly over the fracture of the malleolus of approximately 5 cm in length incising through the skin and subcutaneous tissue. Blunt Metzenbaum scissors were then used to dissect through the deeper fascia, so as to protect the saphenous neurovascular bundle. The medial malleolus fracture, which was also comminuted was exposed and debrided in the usual fashion to minimize periosteal stripping. A vqkiy-do-wikll reduction tenaculum was then used to achieve an anatomic reduction of the fracture. Fixation was then applied using two 3.5 mm cortical lag screws applied under fluoroscopic guidance. We achieved very good purchase and fixation of the medial malleolus fracture. We proceeded with a closed treatment of the posterior malleolus fracture as this was a relatively small fracture, involved less than 25% of the articular joint surface and was not responsible for any persistent instability. Once the medial malleolus fracture was stabilized with fixation, I then performed an external rotation stress exam with the ankle under fluoroscopy, which did not demonstrate any medial clear space widening, widening of the syndesmosis, or any noted instability of the ankle mortise. The medial incision was then irrigated with copious amounts of sterile saline followed by standard closure, which consisted of 0 Vicryl for the deep fascia, 2-0 Vicryl for the subcutaneous tissue, and a running subcuticular 4-0 Monocryl stitch and Steri-Strips for the skin. The patient then had a sterile dressing applied followed by a Cam walker boot for continued protection, and to help maintain the foot in a neutral position. The patient was then transferred to the PACU in stable condition. She tolerated the procedure quite well without complications. All counts were correct at the end of the case. Job ID: [id number] DocumentID: [id number] Dictated Date: 11/18/2017 12:58:06 Chemical Pumper Date: 11/18/2017 15:12:34 Dictated By: ZEESHAN RAMACHANDRAN
== END 2017-11-17 15:55 | DRG 492 ==
LOC: EDUNIT# 13:20 → ER 13:21 → ICU 15:09 → 4TH 11-07 11:30
PROVIDERS: ADMIT Family Medicine; ATTEND Family Medicine
PROC: 0QSJXZZ Reposition Right Fibula, External Approach (ICD-10-PCS; 2017-10-30)
PROC: 0QSGXZZ Reposition Right Tibia, External Approach (ICD-10-PCS; 2017-10-30)
PROC: 5A1945Z Respiratory Ventilation, 24-96 Consecutive Hours (ICD-10-PCS; principal; 2017-11-01)
PROC: 0QSG35Z Reposition Right Tibia with External Fixation Device, Percutaneous Approach (ICD-10-PCS; 2017-11-03)
PROC: 0QSJ04Z Reposition Right Fibula with Internal Fixation Device, Open Approach (ICD-10-PCS; 2017-11-13)
PROC: 0QSG04Z Reposition Right Tibia with Internal Fixation Device, Open Approach (ICD-10-PCS; 2017-11-13)
PROC: 0QSGXZZ Reposition Right Tibia, External Approach (ICD-10-PCS; 2017-11-13)
PROC: 0QPGX5Z Removal of External Fixation Device from Right Tibia, External Approach (ICD-10-PCS; 2017-11-13)
DX: S82.851A Displaced trimalleolar fracture of right lower leg, initial encounter for closed fracture (principal); J96.22 Acute and chronic respiratory failure with hypercapnia; J43.9 Emphysema, unspecified; J18.9 Pneumonia, unspecified organism; N39.0 Urinary tract infection, site not specified; F23 Brief psychotic disorder; I16.0 Hypertensive urgency; E11.40 Type 2 diabetes mellitus with diabetic neuropathy, unspecified; F41.9 Anxiety disorder, unspecified; F32.9 Major depressive disorder, single episode, unspecified; G47.33 Obstructive sleep apnea (adult) (pediatric); K21.9 Gastro-esophageal reflux disease without esophagitis; E66.01 Morbid (severe) obesity due to excess calories; D64.9 Anemia, unspecified; K59.09 Other constipation; M19.91 Primary osteoarthritis, unspecified site; M54.9 Dorsalgia, unspecified; K57.90 Diverticulosis of intestine, part unspecified, without perforation or abscess without bleeding; K44.9 Diaphragmatic hernia without obstruction or gangrene; K64.9 Unspecified hemorrhoids; W19.XXXA Unspecified fall, initial encounter; Y92.099 Unspecified place in other non-institutional residence as the place of occurrence of the external cause; Z99.81 Dependence on supplemental oxygen; Z68.36 Body mass index [BMI] 36.0-36.9, adult; Z87.891 Personal history of nicotine dependence; Z79.4 Long term (current) use of insulin; Z96.641 Presence of right artificial hip joint; Z86.010 Personal history of colon polyps; Z86.79 Personal history of other diseases of the circulatory system
CPT/HCPCS: 27840; 29515; 36415; 51702; 71045; 73600; 73610; 80048; 80053; 80076; 81000; 82271; 82274; 82805; 82962; 83605; 83735; 83880; 84100; 85007; 85025; 85027; 86850; 86900; 86901; 86920; 87040; 87070; 87081; 87088; 87205; 93005; 94002; 94003; 94640; 94660; 94760; 94799; 96374

== ENCOUNTER 2017-11-23 15:21 | Inpatient (IN) | payer MEDICARE ==
[~2017-11-23] VITALS: Ht 170.2 cm; Wt 93.2 kg
[2017-11-23] VITALS (14 sets, daily range): BP systolic 91–126; BP diastolic 54–96
[~2017-11-23 15:21] MED LIST changes: +ACET-2469 PO; +ASPI-808 PO; +OXYM30SP11 NS
[2017-11-23 15:44] LABS: BASOPHILS % (AUTO) 1 % (0-10); EOSINOPHILS # (AUTO) 0.1 10^3/uL (0.0-0.3); EOSINOPHILS % (AUTO) 2 % (0-10); HEMATOCRIT 32 % (35-52); HEMOGLOBIN 9.3 G/DL (11.5-16.0); LYMPHOCYTES % (AUTO) 17 % (12-44); MEAN CORPUSCULAR HEMOGLOBIN 25 PG (25-34); MEAN CORPUSCULAR HGB CONC 29 G/DL (32-36); MEAN CORPUSCULAR VOLUME 85 FL (80-99); MEAN PLATELET VOLUME 9.9 FL (7.4-10.4); MONOCYTES # (AUTO) 0.4 X 10^3 (0.0-1.0); MONOCYTES % (AUTO) 7 % (0-12); NEUTROPHILS # (AUTO) 4.2 X 10^3 (1.8-7.8); NEUTROPHILS % (AUTO) 73 % (42-75); PLATELET COUNT 517 10^3/uL (130-400); RED BLOOD COUNT 3.74 10^6/uL (4.35-5.85); RED CELL DISTRIBUTION WIDTH 16.5 % (10.0-14.5); WHITE BLOOD COUNT 5.8 10^3/uL (4.3-11.0)
[2017-11-23] MEDS ORDERED: PIPERACILLIN SODIUM/TAZOBACTAM 4.5 GM in NS (IVPB) 100 ML IV ONE (15:45)
[2017-11-23 15:47] LABS: INR 0.9 (0.8-1.4); PROTHROMBIN TIME PATIENT 12.7 SEC (12.2-14.7)
[2017-11-23 15:57] LABS: ALANINE AMINOTRANSFERASE 24 U/L (0-55); ALBUMIN 3.5 GM/DL (3.2-4.5); ALKALINE PHOSPHATASE 91 U/L (40-136); BILIRUBIN,TOTAL 0.2 MG/DL (0.1-1.0); BUN/CREATININE RATIO 26; CALCIUM 9.9 MG/DL (8.5-10.1); CARBON DIOXIDE 32 MMOL/L (21-32); CHLORIDE 100 MMOL/L (98-107); CREATININE SERUM 0.86 MG/DL (0.60-1.30); GFR ESTIMATED > 60; POTASSIUM 4.3 MMOL/L (3.6-5.0); SODIUM 142 MMOL/L (135-145); TOTAL PROTEIN 6.3 GM/DL (6.4-8.2)
[2017-11-23 15:57] LABS: BILIRUBIN,URINE NEGATIVE (NEGATIVE); CLARITY,URINE SLIGHTLY CLOUDY; COLOR,URINE YELLOW; GLUCOSE, URINE (UA) NEGATIVE (NEGATIVE); KETONES,URINE NEGATIVE (NEGATIVE); LEUKOCYTE ESTERASE ,URINE 2+ (NEGATIVE); NITRITE,URINE POSITIVE (NEGATIVE); PH,URINE 7 (5-9); PROTEIN,URINE NEGATIVE (NEGATIVE); UROBILINOGEN,URINE NORMAL (NORMAL)
[2017-11-23] MEDS ORDERED: DEXTROSE 50% 50 ML (IMS) SYR ONE (15:59)
[2017-11-23 16:01] LABS: GLUCOSE 47 MG/DL (70-105)
[2017-11-23 16:05] LABS: BACTERIA,URINE FEW /HPF
[2017-11-23] MEDS ORDERED: DEXTROSE 50% 50 ML (IMS) SYR IV ONE ×3 (16:15→21:15)
--- NOTE | 2017-11-23 16:56 | Diagnostic Imaging Report ---
CLINICAL INDICATION: Patient complains of back and buttock pain. Patient with altered mental status. EXAM: Head CT without IV contrast. Axial CT scan of the cervical spine with sagittal and coronal reformations. COMPARISON: X-ray of the cervical spine dated 07/28/2017. FINDINGS: HEAD: There is no evidence of acute cerebral infarct, intracranial hemorrhage, or gross mass effect. The brain parenchymal volume appears appropriate for patient's age. There is normal calle-white matter distinction. There is no significant midline shift or herniation. There is no evidence of hydrocephalus. The basal cisterns are unremarkable. The skull, extracranial soft tissue, and orbits are unremarkable. The paranasal sinuses are unremarkable. Temporal bones show no significant abnormality. CERVICAL SPINE: There is no evidence of acute cervical spine fracture. There are again seen severely hypertrophic anterior spurs at the C4 through C7 levels with moderate loss of intervertebral disc height. There is stable excessive kyphosis centered at the C4 through C6 levels. There is at least rpmu-he-tgrhpvoy central canal narrowing. There is severe left C3-C4, C4-C5, right C5-C6, and C6-C7 neural foramen narrowing due to uncinate spurs. There is grade 1 anterolisthesis of C3 on C4 and C4 on C5 with no pars defects seen, likely degenerative. There is no significant neck soft tissue abnormality. Visualized upper lung herrera are clear. IMPRESSION: 1: There is no evidence of acute intracranial process. 2: Multilevel cervical spine degenerative disease with no acute fracture or dislocation. 3: There is grade 1 anterolisthesis of C3 on C4 and C4 on C5 with no pars defects seen, likely degenerative. Dictated by: Dictated on workstation # [id number]
--- NOTE | 2017-11-23 17:04 | Diagnostic Imaging Report ---
Clinical indication: Patient with altered mental status. Patient is status post trauma. Exam: X-ray of the right ankle, 3 views. Comparison: X-ray of the right ankle dated 10/30/2017. Findings: There are interval postop changes with placement of two screws internally fixing the medial malleolar fracture. There is also placement of sideplate and screws internally fixing the distal fibular fracture. Posterior malleolar fracture is again seen with sclerosis noted in the area. Soft tissue swelling about the ankle is noted. Ankle mortise and syndesmotic joint are within normal limits, as visualized. Impression: Interval open reduction internal fixation of the trimalleolar fractures which are in near-anatomic alignment. Dictated by: Dictated on workstation # [id number]
--- NOTE | 2017-11-23 17:05 | Diagnostic Imaging Report ---
Clinical indication: Patient complains of back and buttock pain. Patient has altered mental status. Exam: Portable chest x-ray upright view. Comparisons: Chest x-ray dated 11/15/2017. Findings: Lungs/pleura: There is interval mild bibasilar atelectasis. Otherwise, lungs are clear. There is no pneumothorax. There is no pleural effusion. Mediastinum: There is mild pulmonary vascular congestion centrally. Pulmonary vasculature: Unremarkable. Heart: Stable cardiomegaly. Bones/extrathoracic soft tissue: There are degenerative spurs involving the thoracic spine. There are hypertrophic spurs involving the right glenohumeral joint region. Impression: 1: Interval mild bibasilar atelectasis. 2: There is cardiomegaly with mild pulmonary vascular congestion centrally. Dictated by: Dictated on workstation # [id number]
--- NOTE | 2017-11-23 17:08 | Diagnostic Imaging Report ---
Clinical indication: Patient complains of back and buttock pain. Exam: X-ray of the pelvis, AP view and x-ray of the left hip, AP and frog-leg views. Comparison: None. Findings: Osteopenia limits evaluation for fine bony detail. There is bowel gas obscuring a portion of the pelvis and symphysis pubis region. There is no gross acute fracture or dislocation. There are severe degenerative changes of the left femoral acetabular joint. There is hypertrophic spurring of the proximal left femoral head/neck junction region and acetabular region. There is severe loss of the femoral acetabular joint space superiorly. Right total hip arthroplasty is seen in good position with no gross complications. Sacroiliac joints and symphysis pubis region are grossly unremarkable. There are lower lumbar spine degenerative spurs. Impression: 1: There is no acute fracture or dislocation. 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 3: Right hip arthroplasty with no gross complications. Dictated by: Dictated on workstation # [id number]
[2017-11-23 17:09] LABS: ABG BASE EXCESS 6.5 MMOL/L (-2.5-2.5); ABG OXYGEN SATURATION 56 % (94-100); ABG TCO2 35.3 MMOL/L (21.0-31.0)
[2017-11-23 17:10] LABS: ABG PCO2 73 MMHG (35-45); ABG PH 7.28 (7.37-7.43)
[2017-11-23 17:11] LABS: ABG PO2 35 MMHG (79-93); ALLENS TEST YES-POS; INSPIRED O2 3L; PATIENT TEMP 98.9; VENTILATOR NO
--- NOTE | 2017-11-23 17:13 | Diagnostic Imaging Report ---
PROCEDURE: CT lumbar spine without contrast. TECHNIQUE: Multiple contiguous axial images were obtained through the lumbar spine without the use of intravenous contrast. Sagittal and coronal reformations were then performed. INDICATION: Back pain. Buttock pain. COMPARISON: Lumbar spine radiographs, 08/13/2017. FINDINGS: There are five lumbar type vertebral bodies. Normal alignment. Vertebral body heights are preserved. No fractures. There are moderate to advanced degenerative endplate changes throughout the lumbar spine, most marked at L2-L3 and L3-L4. There is no high-grade spinal canal narrowing evident on this noncontrast exam. Disc space height loss and facet arthropathy contributes to moderate neural foraminal narrowing on the left at L2-L5, mild on the right at L2-L5. The visualized portions of the sacrum are intact. Moderate atherosclerotic calcifications including a normal caliber abdominal aorta. The visualized abdominal and pelvic contents are otherwise unremarkable. IMPRESSION: No acute CT findings in the lumbar spine. Vertebral body heights are preserved. Moderate to advanced spondylotic changes, as above. Dictated by: Dictated on workstation # [id number]
[2017-11-23] MEDS ORDERED: RT-ALBUTEROL/IPRATROPIUM 3 ML (DUONEB) VIAL INH ONE (17:15)
[2017-11-23] MEDS ORDERED: LORazepam INJ 2 MG/ML (ATIVAN) VIAL IVP ONE ×2 (17:45→19:15)
--- NOTE | 2017-11-23 18:11 | ED General ---
General Chief Complaint: Altered Mental Status Stated Complaint: PER PT FAMILY, PT NOT ACTING NORMAL Nursing Triage Note: Family advise that the patient has not been acting normal today and wishes to have her evaluated. see notes for further. Nursing Sepsis Screen: No Definite Risk Source of Information: Patient, EMS, Family, Residential Records Exam Limitations: No Limitations History of Present Illness Date Seen by Provider: Nov 23, 2017 Time Seen by Provider: 15:22 Initial Comments This 66-year-old female patient presents to emergency room with altered mental status. She has had recent surgery on the right ankle for internal fixation of a fracture. She is a resident of the [facility]. Patient has had multiple recent admissions. She has had problems with respiratory failure from hypoxia and hypercarbia. She does not presently use CPAP. EMS stated alf staff reported patient is also noncompliant with her boot and some other treatments. She has a new blister on the left lower extremity that ruptured today. Patient also has had multiple recent falls and has bruising to the face. Her primary care provider is Dr. Hayes. She is afebrile. Patient complains of lower back pain. detention also reported patient continues to vape despite instructions not to. Allergies and Home Medications Allergies Coded Allergies: enalapril (Verified Allergy, Severe, ANAPHYLAXIS, 08/22/13) Home Medications Acetaminophen 325 Mg Tablet, 650 MG PO Q4H PRN for PAIN-MILD, (Reported) Acetaminophen/Diphenhydramine 1 Each Tablet, 2 TAB PO HS, (Reported) Albuterol Sulfate 2.5 Mg/3 Ml Vial.neb, 2.5 MG NEB Q4H PRN for SHORTNESS OF BREATH, (Reported) Albuterol Sulfate 1 Puff Puff, 1 PUFF IH Q4H PRN for SHORTNESS OF BREATH, ( Reported) 1 PUFF = 90 MCG Albuterol Sulfate 2.5 Mg/3 Ml Vial.neb, 2.5 MG NEB QID, (Reported) Alprazolam 0.25 Mg Tablet, 0.25 MG PO BID PRN for ANXIETY, (Reported) Amlodipine Besylate 10 Mg Tablet, 10 MG PO DAILY, (Reported) Aspirin 325 Mg Tablet.dr, 325 MG PO BID, (Reported) STOP DATE 12-17-17 Atorvastatin Calcium 10 Mg Tablet, 10 MG PO HS, (Reported) Fluticasone/Vilanterol 1 Each Blst.w.dev, 1 PUFF IH DAILY, (Reported) Furosemide 40 Mg Tablet, 40 MG PO DAILY, (Reported) Gabapentin 300 Mg Capsule, 300 MG PO BID, (Reported) Glimepiride 4 Mg Tablet, 4 MG PO BID, (Reported) Hydrocodone/Acetaminophen 1 Each Tablet, 1 TAB PO Q6H PRN for PAIN-MODERATE, ( Reported) Insulin Detemir 100 Unit/1 Ml Insuln.pen, 15 UNIT SQ 1100, (Reported) Metformin HCl 500 Mg Tablet, 1,000 MG PO BID, (Reported) TAKES 2 (500MG) TABLETS Multivit-Min/FA/Lycopene/Lut 1 Each Tablet, 1 TAB PO DAILY, (Reported) Naproxen 500 Mg Tablet, 500 MG PO BID, (Reported) Olanzapine 2.5 Mg Tablet, 2.5 MG PO HS, (Reported) STOP DATE 11-28-17 Ondansetron 4 Mg Tab.rapdis, 4 MG SL Q6H PRN for NAUSEA/VOMITING-1ST LINE, ( Reported) Oxymetazoline HCl 30 Ml [place], 2 SPRAY NS Q4H PRN for CONGESTION, (Reported) Potassium Chloride 10 Meq Capsule.er, 10 MEQ PO HS, (Reported) Pramipexole Di-HCl 1 Mg Tablet, 1 MG PO HS, (Reported) Sertraline HCl 50 Mg Tablet, 50 MG PO HS, (Reported) Tiotropium [place] 4 Gm Mist.inhal, 2 PUFF IH DAILY, (Reported) Patient Home Medication List Home Medication List Reviewed: Yes Constitutional: see HPI EENTM: see HPI Respiratory: see HPI Cardiovascular: no symptoms reported Gastrointestinal: no symptoms reported Genitourinary: no symptoms reported : No Musculoskeletal: see HPI Skin: no symptoms reported Psychiatric/Neurological: See HPI Hematologic/Lymphatic: No Symptoms Reported Immunological/Allergic: no symptoms reported Past Rbowviq-Srffir-Swokja Hx Patient Social History Alcohol Use: Denies Use Recreational Drug Use: No Smoking Status: Current Everyday Smoker Type Used: Electronic/Vapor Former Smoker, Quit: Aug 25, 2012 2nd Hand Smoke Exposure: Yes Recent Foreign Travel: No Contact w/Someone Who Travel: No Recent Infectious Disease Expo: No Recent Hopitalizations: No Physical Abuse: No Sexual Abuse: No Immunizations Up To Date Tetanus Booster (TDap): Less than 5yrs PED Vaccines UTD: No Date of Pneumonia Vaccine: May 21, 2013 Date of Influenza Vaccine: May 25, 2017 Seasonal Allergies Seasonal Allergies: No Surgeries History of Surgeries: Yes (TOTAL right hip, carpul tunnel bilat, LEFT KNEE SX, RIGHT ANKLE) Surgeries: Gallbladder, Joint Replacement, Orthopedic Respiratory History of Respiratory Disorde: Yes Respiratory Disorders: Asthma, Pneumonia, Chronic Bronchitis, COPD, Emphysema Currently Using CPAP: No Currently Using BIPAP: No Cardiovascular History of Cardiac Disorders: Yes Cardiac Disorders: Chronic Edema/Swelling, Hypertension Neurological History of Neurological Disord: Yes Neurological Disorders: Neuropathy 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 System Hx 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 Disorders: No Sexually Transmitted Disease: No HIV/AIDS: No Female 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 Disorders: Denies 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 Genitourinary History of Genitourinary Disor: No Gastrointestinal History of Gastrointestinal Di: Yes Gastrointestinal Disorders: Gastroesophageal Reflux, Chronic Constipation, Diverticulosis, Hemorrhoids, Polyps, Hiatal Hernia, Gall Bladder Disease Musculoskeletal History of Musculoskeletal Dis: Yes Musculoskeletal Disorders: Degenerate Disk Disease, Arthritis, Chronic Back Pain Endocrine History of Endocrine Disorders: Yes Endocrine Disorders: Diabetes, Insulin dep HEENT History of HEENT Disorders: No HEENT Disorders: Cataract Loss of Vision: Denies Hearing Impairment: Denies Cancer History of Cancer: No Psychosocial History of Psychiatric Problem: Yes Behavioral Health Disorders: Sleep Difficulties, Anxiety, Depression Suicide Risk Score: 0 Integumentary History of Skin or Integumenta: No Blood Transfusions History of Blood Disorders: No Adverse Reaction to a Blood Tr: No Family Medical History Significant Family History: Heart Disease, COPD, Hypertension, Lung Disease Family Medial History: Completed stroke 09 BROTHER Family history: Asthma 03 MOTHER History of - respiratory disease 03 FATHER (PNEUMONIA) 03 MOTHER (ASTHMA, COPD) Physical Exam Vital Signs Vital Signs - First Documented 11/23/17 15:32 Temp 98.9 Pulse 90 Resp 18 B/P (MAP) 103/61 (75) Pulse Ox 97 O2 Delivery Nasal Cannula O2 Flow Rate 3.00 FiO2 100 Capillary Refill : Less Than 3 Seconds General Appearance: No Apparent Distress, WD/WN, Other (somnolent and occasionally agitated) HEENT: PERRL/EOMI, Pharynx Normal, Other (bruising to the right side of the face) Neck: Normal Inspection, Non Tender, Supple Respiratory: Lungs Clear, Normal Breath Sounds, No Accessory Muscle Use, No Respiratory Distress Cardiovascular: Regular Rate, Rhythm, No Edema, No Murmur Gastrointestinal: Normal Bowel Sounds, Soft, Tenderness (suprapubic) Back: Normal Inspection, Vertebral Tenderness (Lumbar) Extremity: Other (well healing incisions on the right lower extremity. Incisions clean dry and intact. 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, Other (mood is intermittently irritable) Skin: Normal Color, Warm/Dry, Ecchymosis Focused Exam Evaluation Lactate Level Lactic Acid Level Date of ETT Placement: Nov 01, 2017 Time of ETT Placement: 0704 Progress/Results/Core Measures Suspected Sepsis Recent Fever Within 48 Hours: No Infection Criteria Present: Suspected New Infection New/Unexplained Altered Menta: Yes Sepsis Screen: No Definite Risk Sepsis Diagnosis: SIRS Temperature:98.9 Pulse: 79 Respiratory Rate: 19 Laboratory Tests 11/25/17 03:55: White Blood Count 4.7 11/26/17 03:15: White Blood Count 4.7 11/27/17 05:52: White Blood Count 4.5 Blood Pressure 103 /61 Mean: 75 Laboratory Tests 11/25/17 03:55: Creatinine 0.68, Platelet Count 400 11/26/17 03:15: Creatinine 0.86, Platelet Count 441H, Total Bilirubin 0.1 11/27/17 05:52: Creatinine 0.83, Platelet Count 431H Results/Orders Lab Results Laboratory Tests Test 11/25/17 10:48 11/25/17 13:59 11/25/17 18:46 11/25/17 22:10 Range/Units Glucometer 152 H 197 H 196 H 157 H 70-110 MG/DL Test 11/26/17 00:56 11/26/17 03:15 11/26/17 05:01 11/26/17 10:50 Range/Units Glucometer 189 H 123 H 220 H 70-110 MG/DL White Blood Count 4.7 4.3-11.0 10^3/uL Red Blood Count 3.45 L 4.35-5.85 10^6/uL Hemoglobin 8.7 L 11.5-16.0 G/DL Hematocrit 29 L 35-52 % Mean Corpuscular Volume 83 80-99 FL Mean Corpuscular Hemoglobin 25 25-34 PG Mean Corpuscular Hemoglobin Concent 30 L 32-36 G/DL Red Cell Distribution Width 17.1 H 10.0-14.5 % Platelet Count 441 H 130-400 10^3/uL Mean Platelet Volume 10.2 7.4-10.4 FL Neutrophils (%) (Auto) 67 42-75 % Lymphocytes (%) (Auto) 19 12-44 % Monocytes (%) (Auto) 11 0-12 % Eosinophils (%) (Auto) 3 0-10 % Basophils (%) (Auto) 0 0-10 % Neutrophils # (Auto) 3.1 1.8-7.8 X 10^3 Lymphocytes # (Auto) 0.9 L 1.0-4.0 X 10^3 Monocytes # (Auto) 0.5 0.0-1.0 X 10^3 Eosinophils # (Auto) 0.1 0.0-0.3 10^3/uL Basophils # (Auto) 0.0 0.0-0.1 10^3/uL Sodium Level 141 135-145 MMOL/L Potassium Level 3.8 3.6-5.0 MMOL/L Chloride Level 103 98-107 MMOL/L Carbon Dioxide Level 29 21-32 MMOL/L Anion Gap 9 5-14 MMOL/L Blood Urea Nitrogen 10 7-18 MG/DL Creatinine 0.86 0.60-1.30 MG/DL Estimat Glomerular Filtration Rate > 60 BUN/Creatinine Ratio 12 Glucose Level 159 H 70-105 MG/DL Calcium Level 9.6 8.5-10.1 MG/DL Phosphorus Level 4.2 2.3-4.7 MG/DL Magnesium Level 1.4 L 1.8-2.4 MG/DL Total Bilirubin 0.1 0.1-1.0 MG/DL Aspartate Amino Transf (AST/SGOT) 18 5-34 U/L Alanine Aminotransferase (ALT/SGPT) 21 0-55 U/L Alkaline Phosphatase 90 40-136 U/L Total Protein 5.7 L 6.4-8.2 GM/DL Albumin 3.1 L 3.2-4.5 GM/DL Test 11/26/17 16:18 11/26/17 21:42 11/27/17 05:51 11/27/17 05:52 Range/Units Glucometer 179 H 276 H 121 H 70-110 MG/DL White Blood Count 4.5 4.3-11.0 10^3/uL Red Blood Count 3.28 L 4.35-5.85 10^6/uL Hemoglobin 8.2 L 11.5-16.0 G/DL Hematocrit 27 L 35-52 % Mean Corpuscular Volume 83 80-99 FL Mean Corpuscular Hemoglobin 25 25-34 PG Mean Corpuscular Hemoglobin Concent 30 L 32-36 G/DL Red Cell Distribution Width 16.9 H 10.0-14.5 % Platelet Count 431 H 130-400 10^3/uL Mean Platelet Volume 10.6 H 7.4-10.4 FL Neutrophils (%) (Auto) 66 42-75 % Lymphocytes (%) (Auto) 21 12-44 % Monocytes (%) (Auto) 12 0-12 % Eosinophils (%) (Auto) 2 0-10 % Basophils (%) (Auto) 0 0-10 % Neutrophils # (Auto) 3.0 1.8-7.8 X 10^3 Lymphocytes # (Auto) 0.9 L 1.0-4.0 X 10^3 Monocytes # (Auto) 0.5 0.0-1.0 X 10^3 Eosinophils # (Auto) 0.1 0.0-0.3 10^3/uL Basophils # (Auto) 0.0 0.0-0.1 10^3/uL Sodium Level 137 135-145 MMOL/L Potassium Level 4.0 3.6-5.0 MMOL/L Chloride Level 100 98-107 MMOL/L Carbon Dioxide Level 26 21-32 MMOL/L Anion Gap 11 5-14 MMOL/L Blood Urea Nitrogen 9 7-18 MG/DL Creatinine 0.83 0.60-1.30 MG/DL Estimat Glomerular Filtration Rate > 60 BUN/Creatinine Ratio 11 Glucose Level 111 H 70-105 MG/DL Calcium Level 9.8 8.5-10.1 MG/DL Phosphorus Level 5.2 H 2.3-4.7 MG/DL Magnesium Level 1.7 L 1.8-2.4 MG/DL My Orders Orders - JAZIEL NICHOLS MD Iv Infusion <= First Hr Ed (11/23/17 ) Medications Given in ED Vital Signs/I&O Vital Sign - Last 12Hours 11/27/17 11/27/17 11/27/17 11/27/17 04:00 07:20 08:33 08:40 Temp 98.4 97.9 Pulse 101 98 Resp 22 20 B/P (MAP) 119/64 (82) 136/69 (91) Pulse Ox 94 95 93 94 O2 Delivery Nasal Cannula Nasal Cannula Nasal Cannula O2 Flow Rate 3.50 3.50 3.50 Capillary Refill : Less Than 3 Seconds Blood Pressure Mean: 75 Progress Note : Progress Note Patient is found to be hypoglycemic. An amp of D50 was administered. Repeat blood sugar showed persistent hypoglycemia with blood sugar of 62. An amp of D50 was repeated. Patient was found to have urinary tract infection. She was empirically treated with Zosyn during assessment. Rocephin will be ordered for continued antibiotic therapy. The blister on the left farias was cultured. ABG demonstrated hypercarbia and BiPAP was initiated. Patient did require 2 doses of Ativan 0.25 mg for agitation related to the BiPAP. No acute injuries were identified on imaging and trauma consultation was not needed. A DuoNeb treatment was also administered. Nursing staff noted a large volume of urine in the bladder with placement of the Wagner catheter. Diagnostic Imaging Diagonstic Imaging: Xray Plain Films/CT/US/NM/MRI: pelvis, hip Comments Hip and pelvis x-ray viewed by me and report reviewed. See report below: NAME: LOKESH BARKLEY [facility] REC#: [id number] PT STATUS: REG ER : 1950 PHYSICIAN: JAZIEL NICHOLS MD ADMIT DATE: 11/23/17/ER Signed Date of Exam: 11/23/17 PELVIS WITH LEFT HIP 2-3 VIEWS Clinical indication: Patient complains of back and buttock pain. Exam: X-ray of the pelvis, AP view and x-ray of the left hip, AP and frog-leg views. Comparison: None. Findings: Osteopenia limits evaluation for fine bony detail. There is bowel gas obscuring a portion of the pelvis and symphysis pubis region. There is no gross acute fracture or dislocation. There are severe degenerative changes of the left femoral acetabular joint. There is hypertrophic spurring of the proximal left femoral head/neck junction region and acetabular region. There is severe loss of the femoral acetabular joint space superiorly. Right total hip arthroplasty is seen in good position with no gross complications. Sacroiliac joints and symphysis pubis region are grossly unremarkable. There are lower lumbar spine degenerative spurs. Impression: 1: There is no acute fracture or dislocation. 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 3: Right hip arthroplasty with no gross complications. Dictated by: Dictated on workstation # [id number] Dict: 11/23/17 1700 Trans: 11/23/171714 Interpreted by: KANIKA STALEY MD Electronically signed by: KANIKA STALEY MD 11/23/171714 Diagonstic Imaging: CT Plain Films/CT/US/NM/MRI: c-spine, head Comments CT head and cervical spine viewed by me and report reviewed. See report below: NAME: LOKESH BARKLEY [facility] REC#: [id number] PT STATUS: REG ER : 1950 PHYSICIAN: JAZIEL NICHOLS MD ADMIT DATE: 11/23/17/ER Signed Date of Exam: 11/23/17 CT HEAD/CERVICAL SPINE WO CLINICAL INDICATION: Patient complains of back and buttock pain. Patient with altered mental status. EXAM: Head CT without IV contrast. Axial CT scan of the cervical spine with sagittal and coronal reformations. COMPARISON: X-ray of the cervical spine dated 07/28/2017. FINDINGS: HEAD: There is no evidence of acute cerebral infarct, intracranial hemorrhage, or gross mass effect. The brain parenchymal volume appears appropriate for patient's age. There is normal calle-white matter distinction. There is no significant midline shift or herniation. There is no evidence of hydrocephalus. The basal cisterns are unremarkable. The skull, extracranial soft tissue, and orbits are unremarkable. The paranasal sinuses are unremarkable. Temporal bones show no significant abnormality. CERVICAL SPINE: There is no evidence of acute cervical spine fracture. There are again seen severely hypertrophic anterior spurs at the C4 through C7 levels with moderate loss of intervertebral disc height. There is stable excessive kyphosis centered at the C4 through C6 levels. There is at least pexn-ko-lgsnxduj central canal narrowing. There is severe left C3-C4, C4-C5, right C5-C6, and C6-C7 neural foramen narrowing due to uncinate spurs. There is grade 1 anterolisthesis of C3 on C4 and C4 on C5 with no pars defects seen, likely degenerative. There is no significant neck soft tissue abnormality. Visualized upper lung herrera are clear. IMPRESSION: 1: There is no evidence of acute intracranial process. 2: Multilevel cervical spine degenerative disease with no acute fracture or dislocation. 3: There is grade 1 anterolisthesis of C3 on C4 and C4 on C5 with no pars defects seen, likely degenerative. Dictated by: Dictated on workstation # [id number] Dict: 11/23/171648 Trans: 11/23/171714 Interpreted by: KANIKA STALEY MD Electronically signed by: KANIKA STALEY MD 11/23/171714 Diagonstic Imaging: Xray Plain Films/CT/US/NM/MRI: chest Comments Chest x-ray viewed by me and report reviewed. See report below: NAME: LOKESH BARKLEY [facility] REC#: [id number] PT STATUS: REG ER : 1950 PHYSICIAN: JAZIEL NICHOLS MD ADMIT DATE: 11/23/17/ER Signed Date of Exam: 11/23/17 CHEST 1 VIEW, AP/PA ONLY Clinical indication: Patient complains of back and buttock pain. Patient has altered mental status. Exam: Portable chest x-ray upright view. Comparisons: Chest x-ray dated 11/15/2017. Findings: Lungs/pleura: There is interval mild bibasilar atelectasis. Otherwise, lungs are clear. There is no pneumothorax. There is no pleural effusion. Mediastinum: There is mild pulmonary vascular congestion centrally. Pulmonary vasculature: Unremarkable. Heart: Stable cardiomegaly. Bones/extrathoracic soft tissue: There are degenerative spurs involving the thoracic spine. There are hypertrophic spurs involving the right glenohumeral joint region. Impression: 1: Interval mild bibasilar atelectasis. 2: There is cardiomegaly with mild pulmonary vascular congestion centrally. Dictated by: Dictated on workstation # [id number] Dict: 11/23/171658 Trans: 11/23/171713 Interpreted by: KANIKA STALEY MD Electronically signed by: KANIKA STALEY MD 11/23/17 1714 Diagonstic Imaging: Xray Plain Films/CT/US/NM/MRI: ankle Comments Ankle x-ray viewed by me and report reviewed. See report below: NAME: LOKESH BARKLEY [facility] REC#: [id number] PT STATUS: REG ER : 1950 PHYSICIAN: JAZIEL NICHOLS MD ADMIT DATE: 11/23/17/ER Signed Date of Exam: 11/23/17 ANKLE, RIGHT, 3 VIEWS Clinical indication: Patient with altered mental status. Patient is status post trauma. Exam: X-ray of the right ankle, 3 views. Comparison: X-ray of the right ankle dated 10/30/2017. Findings: There are interval postop changes with placement of two screws internally fixing the medial malleolar fracture. There is also placement of sideplate and screws internally fixing the distal fibular fracture. Posterior malleolar fracture is again seen with sclerosis noted in the area. Soft tissue swelling about the ankle is noted. Ankle mortise and syndesmotic joint are within normal limits, as visualized. Impression: Interval open reduction internal fixation of the trimalleolar fractures which are in near-anatomic alignment. Dictated by: Dictated on workstation # [id number] Dict: 11/23/17 1658 Trans: 11/23/17 1710 Interpreted by: KANIKA STALEY MD Electronically signed by: KANIKA STALEY MD 11/23/17 1710 Diagonstic Imaging: CT Plain Films/CT/US/NM/MRI: other (Lumbar spine) Comments CT lumbar spine viewed by me and report reviewed. See report below: NAME: LOKESH BARKLEY [facility] REC#: [id number] PT STATUS: REG ER : 1950 PHYSICIAN: JAZIEL NICHOLS MD ADMIT DATE: 11/23/17/ER Signed Date of Exam: 11/23/17 CT LUMBAR SPINE WO PROCEDURE: CT lumbar spine without contrast. TECHNIQUE: Multiple contiguous axial images were obtained through the lumbar spine without the use of intravenous contrast. Sagittal and coronal reformations were then performed. INDICATION: Back pain. Buttock pain. COMPARISON: Lumbar spine radiographs, 08/13/2017. FINDINGS: There are five lumbar type vertebral bodies. Normal alignment. Vertebral body heights are preserved. No fractures. There are moderate to advanced degenerative endplate changes throughout the lumbar spine, most marked at L2-L3 and L3-L4. There is no high-grade spinal canal narrowing evident on this noncontrast exam. Disc space height loss and facet arthropathy contributes to moderate neural foraminal narrowing on the left at L2-L5, mild on the right at L2-L5. The visualized portions of the sacrum are intact. Moderate atherosclerotic calcifications including a normal caliber abdominal aorta. The visualized abdominal and pelvic contents are otherwise unremarkable. IMPRESSION: No acute CT findings in the lumbar spine. Vertebral body heights are preserved. Moderate to advanced spondylotic changes, as above. Dictated by: Dictated on workstation # [id number] Dict: 11/23/171706 Trans: 11/23/171714 Interpreted by: CLAUDIA ARELLANO MD Electronically signed by: CLAUDIA ARELLANO MD 11/23/175 Departure Communication (Admissions) Time/Spoke to Admitting Phy: 17:[address] Bell Impression Impression: Primary Impression: Acute respiratory failure with hypoxia and hypercarbia Additional Impressions: Altered mental status Qualified Codes: R41.82 - Altered mental status, unspecified Urinary tract infection Qualified Codes: N39.0 - Urinary tract infection, site not specified Frequent falls Blister of left leg Qualified Codes: S80.822A - Blister (nonthermal), left lower leg, initial encounter Hypoglycemia Disposition: ADMITTED INPATIENT Condition: Improved Admissions Decision to Admit Reason: Admit from ER (General) Decision to Admit/Date: Nov 23, 2017 Time/Decision to Admit Time: 15:30 Departure-Patient Inst. Referrals: RADHA HAYES DO (PCP/Family) Primary Care Physician JAZIEL NICHOLS MD Nov 23, 2017 18:11
[2017-11-23] MEDS ORDERED: ACETAMINOPHEN 500 MG TAB (TYLENOL) PO ONE (18:45)
[2017-11-23] MEDS ORDERED: morphine INJ 4 MG/ML 1 ML (VIAL/SYRINGE) ONE (19:49)
[2017-11-23] MEDS ORDERED: HALOPERIDOL 5 MG/ML (HALDOL) AMP ONE ×2 (19:49→22:21)
[2017-11-23] MEDS ORDERED: HALOPERIDOL 5 MG/ML (HALDOL) AMP IV ONE ×2 (20:00)
[2017-11-23] MEDS ORDERED: morphine INJ 4 MG/ML 1 ML (VIAL/SYRINGE) IVP PRN (20:00)
[2017-11-23] MEDS ORDERED: ACETAMINOPHEN 500 MG TAB (TYLENOL) PO PRN (20:30)
[2017-11-23] MEDS ORDERED: RT-ALBUTEROL SULF 2.5 MG/3 ML PRE-MIX VIAL IH PRN (20:30)
[2017-11-23] MEDS ORDERED: CATHETER FLUSH 10 ML SYR IV PRN (20:30)
[2017-11-23] MEDS ORDERED: cefTRIAXone 1 GM/NS 100 ML IVPB IV SCH ×2 (20:30)
[2017-11-23] MEDS ORDERED: ONDANSETRON 4 MG/2 ML (SDV) Z0FRAN IV PRN (20:30)
[2017-11-23] MEDS: CATHETER FLUSH 10 ML SYR IV SCH (20:50)
[2017-11-23] MEDS: RT-ALBUTEROL/IPRATROPIUM 3 ML (DUONEB) VIAL IH SCH (22:18)
[2017-11-23] MEDS ORDERED: LORazepam INJ 2 MG/ML (ATIVAN) VIAL ONE (22:22)
[2017-11-23] MEDS: HALOPERIDOL 5 MG/ML (HALDOL) AMP IM PRN (22:32)
[2017-11-23] MEDS: morphine INJ 4 MG/ML 1 ML (VIAL/SYRINGE) IVP PRN (22:33)
[2017-11-23] MEDS: LORazepam INJ 2 MG/ML (ATIVAN) VIAL IVP PRN (22:33)
[2017-11-23] MEDS: D5 1/2 NS 1000 ML IV SOLUTION 1,000 ML IV SCH (23:24)
[2017-11-23 23:57] LABS: ABG BASE EXCESS 6.1 MMOL/L (-2.5-2.5); ABG OXYGEN SATURATION 94 % (94-100); ABG PCO2 66 MMHG (35-45); ABG PO2 67 MMHG (79-93); ABG TCO2 34.1 MMOL/L (21.0-31.0)
[2017-11-23 23:59] LABS: ALLENS TEST YES-POS; INSPIRED O2 35% BIPAP; PATIENT TEMP 98.7; VENTILATOR NO
[2017-11-24] VITALS (43 sets, daily range): BP systolic 94–161; BP diastolic 58–94
[2017-11-24 00:01] LABS: ABG PH 7.31 (7.37-7.43)
[2017-11-24] MEDS ORDERED: DEXTROSE 50% 50 ML (IMS) SYR IV ONE (00:15)
[2017-11-24] MEDS: inSUlin (REGULAR) HUMAN 1 UNIT/0.01 ML (CHARGE PER UNIT) SC SCH ×5 (01:07→21:00)
[2017-11-24] MEDS: morphine INJ 4 MG/ML 1 ML (VIAL/SYRINGE) IVP PRN ×2 (01:38→05:07)
[2017-11-24] MEDS: LORazepam INJ 2 MG/ML (ATIVAN) VIAL IVP PRN ×2 (01:39→05:08)
[2017-11-24] MEDS: HALOPERIDOL 5 MG/ML (HALDOL) AMP IM PRN ×2 (01:40→05:08)
[2017-11-24] MEDS: RT-ALBUTEROL/IPRATROPIUM 3 ML (DUONEB) VIAL IH SCH ×6 (02:25→22:37)
[2017-11-24 04:01] LABS: BASOPHILS % (AUTO) 0 % (0-10); EOSINOPHILS # (AUTO) 0.1 10^3/uL (0.0-0.3); EOSINOPHILS % (AUTO) 2 % (0-10); HEMATOCRIT 28 % (35-52); HEMOGLOBIN 8.4 G/DL (11.5-16.0); LYMPHOCYTES # (AUTO) 0.5 X 10^3 (1.0-4.0); LYMPHOCYTES % (AUTO) 13 % (12-44); MEAN CORPUSCULAR HEMOGLOBIN 25 PG (25-34); MEAN CORPUSCULAR HGB CONC 30 G/DL (32-36); MEAN CORPUSCULAR VOLUME 85 FL (80-99); MEAN PLATELET VOLUME 9.8 FL (7.4-10.4); MONOCYTES # (AUTO) 0.3 X 10^3 (0.0-1.0); MONOCYTES % (AUTO) 8 % (0-12); NEUTROPHILS # (AUTO) 3.3 X 10^3 (1.8-7.8); NEUTROPHILS % (AUTO) 77 % (42-75); PLATELET COUNT 439 10^3/uL (130-400); RED BLOOD COUNT 3.33 10^6/uL (4.35-5.85); RED CELL DISTRIBUTION WIDTH 16.7 % (10.0-14.5); WHITE BLOOD COUNT 4.2 10^3/uL (4.3-11.0)
[2017-11-24 04:27] LABS: ALANINE AMINOTRANSFERASE 21 U/L (0-55); ALKALINE PHOSPHATASE 75 U/L (40-136); BILIRUBIN,TOTAL 0.2 MG/DL (0.1-1.0); BUN/CREATININE RATIO 29; CALCIUM 9.1 MG/DL (8.5-10.1); CARBON DIOXIDE 29 MMOL/L (21-32); CHLORIDE 102 MMOL/L (98-107); CREATININE SERUM 0.77 MG/DL (0.60-1.30); GFR ESTIMATED > 60; GLUCOSE 103 MG/DL (70-105); MAGNESIUM 1.4 MG/DL (1.8-2.4); POTASSIUM 3.4 MMOL/L (3.6-5.0); SODIUM 142 MMOL/L (135-145); TOTAL PROTEIN 5.4 GM/DL (6.4-8.2)
[2017-11-24 04:28] LABS: ABG BASE EXCESS 5.1 MMOL/L (-2.5-2.5); ABG OXYGEN SATURATION 94 % (94-100); ABG PCO2 66 MMHG (35-45); ABG PO2 65 MMHG (79-93); ABG TCO2 33.3 MMOL/L (21.0-31.0)
[2017-11-24 04:30] LABS: ALLENS TEST YES-POS; INSPIRED O2 35% BIPAP; PATIENT TEMP 97.9; VENTILATOR NO
[2017-11-24] MEDS: POTASSIUM CL 10MEQ/50ML IVPB 50 ML IV SCH ×5 (05:37→09:16)
[2017-11-24] MEDS: MAGNESIUM 1 GM/100 ML IVPB 100 ML IV SCH ×3 (05:37→06:44)
[2017-11-24] MEDS: CATHETER FLUSH 10 ML SYR IV SCH ×3 (06:05→22:36)
[2017-11-24] MEDS: KCL 20 MEQ TAB (K-DUR) PO SCH (06:07)
--- NOTE | 2017-11-24 06:33 | Pulmonary Consultation ---
History of Present Illness History of Present Illness Date of Consultation 11/24/17 06:28 Time Seen by Provider: 06:28 Date of Admission History of Present Illness 66yo with hx of severe COPD, and recent hospitalization secondary to Ankle fracture s/p surgery presented via EMS from [facility] secondary to acute respiratory failure and MS changes. Pt has been noncompliant as out patient with treatment. Pt has also had recent multiple falls and has bruising to face. Pt also continues to Vape at [facility]. Pt was found to have acute respiratory failure in ED. She does have a hx of similar symptoms requiring hospitalization. Unable to obtain ROS secondary to sedation. Allergies and Home Medications Allergies Coded Allergies: enalapril (Verified Allergy, Severe, ANAPHYLAXIS, 08/22/13) Home Medications Acetaminophen/Diphenhydramine 1 Each Tablet, 2 EACH PO HS, (Reported) Albuterol Sulfate 2.5 Mg/3 Ml Vial.neb, 2.5 MG NEB Q4H PRN for SHORTNESS OF BREATH, (Reported) Albuterol Sulfate 1 Puff Puff, 2 PUFF IH QID PRN for SHORTNESS OF BREATH, ( Reported) 1 PUFF = 90 MCG Amlodipine Besylate 10 Mg Tablet, 10 MG PO DAILY, (Reported) Aspirin 325 Mg Tablet, 325 MG PO BID Prescribed by: IRVING WOODARD on 11/17/17 1334 Atorvastatin Calcium 10 Mg Tablet, 10 MG PO HS, (Reported) Budesonide/Formoterol Fumarate 10.2 Gm Hfa.aer.ad, 2 PUFF IH BID, (Reported) Furosemide 40 Mg Tablet, 40 MG PO DAILY, (Reported) Gabapentin 300 Mg Capsule, 300 MG PO BID, (Reported) Glimepiride 4 Mg Tablet, 4 MG PO BID, (Reported) Hydrocodone/Acetaminophen 1 Each Tablet, 1 TAB PO QID PRN for PAIN-MODERATE, ( Reported) Insulin Detemir 100 Unit/1 Ml Insuln.pen, 15 UNIT SQ 1100, (Reported) Metformin HCl 500 Mg Tablet, 1,000 MG PO BID, (Reported) TAKES 2 (500MG) TABLETS Multivit-Min/FA/Lycopene/Lut 1 Each Tablet, 1 TAB PO DAILY, (Reported) Naproxen 500 Mg Tablet, 500 MG PO BID, (Reported) Oxymetazoline HCl 30 Ml [place], 2 SPRAY NS Q4H PRN for CONGESTION, (Reported) Potassium Chloride 10 Meq Capsule.er, 10 MEQ PO HS, (Reported) Pramipexole Di-HCl 1 Mg Tablet, 1 MG PO HS, (Reported) Sertraline HCl 50 Mg Tablet, 50 MG PO HS, (Reported) Tiotropium [place] 4 Gm Mist.inhal, 2 PUFF IH DAILY, (Reported) Past Oyedejs-Bsgcfy-Ztalkw Hx Patient Social History Alcohol Use: Denies Use Recreational Drug Use: No Smoking Status: Current Everyday Smoker Type Used: Electronic/Vapor Former Smoker, Quit: Aug 25, 2012 2nd Hand Smoke Exposure: Yes Recent Foreign Travel: No Contact w/Someone Who Travel: No Recent Infectious Disease Expo: No Recent Hopitalizations: No Physical Abuse: No Sexual Abuse: No Immunizations Up To Date Tetanus Booster (TDap): Less than 5yrs PED Vaccines UTD: No Date of Pneumonia Vaccine: May 21, 2013 Date of Influenza Vaccine: May 25, 2017 Seasonal Allergies Seasonal Allergies: No Surgeries History of Surgeries: Yes (TOTAL right hip, carpul tunnel bilat, LEFT KNEE SX, RIGHT ANKLE) Surgeries: Gallbladder, Joint Replacement, Orthopedic Respiratory History of Respiratory Disorde: Yes Respiratory Disorders: Asthma, Pneumonia, Chronic Bronchitis, COPD, Emphysema Currently Using CPAP: No Currently Using BIPAP: No Cardiovascular History of Cardiac Disorders: Yes Cardiac Disorders: Chronic Edema/Swelling, Hypertension Neurological History of Neurological Disord: Yes Neurological Disorders: Neuropathy 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 System Hx 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 Disorders: No Sexually Transmitted Disease: No HIV/AIDS: No Female 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 Disorders: 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 Genitourinary History of Genitourinary Disor: No Gastrointestinal History of Gastrointestinal Di: Yes Gastrointestinal Disorders: Gastroesophageal Reflux, Chronic Constipation, Diverticulosis, Hemorrhoids, Polyps, Hiatal Hernia, Gall Bladder Disease Musculoskeletal History of Musculoskeletal Dis: Yes Musculoskeletal Disorders: Degenerate Disk Disease, Arthritis, Chronic Back Pain Endocrine History of Endocrine Disorders: Yes Endocrine Disorders: Diabetes, Insulin dep HEENT History of HEENT Disorders: No HEENT Disorders: Cataract Loss of Vision: Denies Hearing Impairment: Denies Cancer History of Cancer: No Psychosocial History of Psychiatric Problem: Yes Behavioral Health Disorders: Sleep Difficulties, Anxiety, Depression Suicide Risk Score: 0 Integumentary History of Skin or Integumenta: No Blood Transfusions History of Blood Disorders: No Adverse Reaction to a Blood Tr: No Family Medical History Significant Family History: Heart Disease, COPD, Hypertension, Lung Disease Family Medial History: Completed stroke BROTHER Family history: Asthma 03 MOTHER History of - respiratory disease 03 FATHER (PNEUMONIA) 03 MOTHER (ASTHMA, COPD) Review of Systems Time Seen by Provider: 06:43 Exam Exam Vital Signs Date Time Temp Pulse Resp B/P (MAP) Pulse Ox O2 Delivery O2 Flow Rate FiO2 11/24/17 06:23 75 16 95 35.00 11/24/17 04:34 75 15 94 35.00 11/24/17 04:30 76 20 125/70 (88) 94 NIV Bilevel 35.00 11/24/17 04:00 96 NIV Bilevel 35 11/24/17 04:00 97.9 76 15 127/71 (89) 95 NIV Bilevel 35.00 11/24/17 03:30 71 14 120/73 (89) 98 NIV Bilevel 35.00 11/24/17 03:00 83 14 136/75 (95) 94 NIV Bilevel 35.00 11/24/17 02:30 86 18 138/73 (94) 92 NIV Bilevel 35.00 11/24/17 02:25 87 18 94 35.00 11/24/17 02:00 97 29 140/73 (95) 92 NIV Bilevel 35.00 11/24/17 01:30 83 19 150/82 (104) 97 NIV Bilevel 35.00 11/24/17 01:00 84 21 127/68 (87) 94 NIV Bilevel 35.00 11/24/17 01:00 84 11/24/17 00:30 75 18 161/86 (111) 95 NIV Bilevel 35.00 11/24/17 00:02 76 17 100 35.00 11/24/17 00:00 96 NIV Bilevel 35 11/24/17 00:00 98.7 81 21 142/76 (98) 94 NIV Bilevel 35.00 11/23/17 23:30 78 19 117/69 (85) 94 NIV Bilevel 35.00 11/23/17 23:00 77 14 122/96 (105) 100 NIV Bilevel 35.00 11/23/17 22:30 77 16 120/72 (88) 100 NIV Bilevel 35.00 11/23/17 22:19 76 17 100 35.00 11/23/17 22:00 72 17 126/71 (89) 99 NIV Bilevel 35.00 11/23/17 21:30 66 18 105/64 (78) 100 NIV Bilevel 35.00 11/23/17 21:00 68 24 108/67 (81) 95 NIV Bilevel 35.00 11/23/17 20:45 70 23 96/64 (75) 95 NIV Bilevel 35.00 11/23/17 20:33 81 11/23/17 20:30 69 25 112/60 (77) 99 NIV Bilevel 35.00 11/23/17 20:15 70 21 93/54 (67) 95 NIV Bilevel 35.00 11/23/17 20:00 70 20 91/58 (69) 97 NIV Bilevel 35.00 11/23/17 19:45 73 13 121/68 (85) 98 NIV Bilevel 35.00 11/23/17 19:42 72 22 99 35.00 11/23/17 19:31 97.2 93 16 109/71 (84) 99 NIV Bilevel 35.00 11/23/17 19:15 NIV Bilevel 35 11/23/17 19:11 86 20 133/95 98 NIV Bilevel 11/23/17 18:59 71 23 97 35.00 11/23/17 17:35 79 19 100 35.00 11/23/17 15:32 98.9 90 18 103/61 (75) 97 Nasal Cannula 2.00 11/23/17 15:32 97 Nasal Cannula 3.00 100 I & O 11/24/17 07:00 Intake Total 100 ml Output Total 1755 ml Balance -1655 ml General Appearance: No Apparent Distress, WD/WN, Mild Distress, Other ( somnolent and occasionally agitated) HEENT: PERRL/EOMI, Pharynx Normal, Other (bruising to the right side of the face) Neck: Normal Inspection, Non Tender, Supple Respiratory: Lungs Clear, Normal Breath Sounds, No Accessory Muscle Use, No Respiratory Distress Cardiovascular: Regular Rate, Rhythm, No Edema, No Murmur Capillary Refill: Less Than 3 Seconds Gastrointestinal: non tender Extremity: Other (well healing incisions on the right lower extremity. Incisions clean dry and intact. 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 Psychosis/Metabolic Monitor UTI -continue Abx Hypoglycemia -D51/2 NS 255 MK RAMOS DO Nov 24, 2017 06:33
--- NOTE | 2017-11-24 07:22 | Diagnostic Imaging Report ---
INDICATION: Respiratory failure with altered mental status. Portable upright AP view of the chest is obtained. Comparison is made study of one day earlier. FINDINGS: Heart size and pulmonary vascularity are within normal limits, and the lungs are clear, bilaterally. IMPRESSION: Unremarkable chest. Dictated by: Dictated on workstation # [id number]
--- NOTE | 2017-11-24 07:33 | History & Physicial ---
History of Present Illness History of Present Illness Reason for visit/HPI patient sedated. Patient had jail.Patient recently had surgery of the right ankle. Patient noncompliant and jail. Patient has COPD and continues today. Recently patient had multiple falls at the jail. Patient having low back pain. Patient in intensive care unit Date of Admission Nov 23, 2017 at 18:03 Time Seen by Provider: 07:15 I consulted on this patient on 11/24/17 07:28 Attending Physician Khushi Bell DO Admitting Physician Sina Barros DO Consult Allergies and Home Medications Allergies Coded Allergies: enalapril (Verified Allergy, Severe, ANAPHYLAXIS, 08/22/13) Home Medications Acetaminophen/Diphenhydramine 1 Each Tablet, 2 EACH PO HS, (Reported) Albuterol Sulfate 2.5 Mg/3 Ml Vial.neb, 2.5 MG NEB Q4H PRN for SHORTNESS OF BREATH, (Reported) Albuterol Sulfate 1 Puff Puff, 2 PUFF IH QID PRN for SHORTNESS OF BREATH, ( Reported) 1 PUFF = 90 MCG Amlodipine Besylate 10 Mg Tablet, 10 MG PO DAILY, (Reported) Aspirin 325 Mg Tablet, 325 MG PO BID Prescribed by: IRVING WOODARD on 11/17/17 1334 Atorvastatin Calcium 10 Mg Tablet, 10 MG PO HS, (Reported) Budesonide/Formoterol Fumarate 10.2 Gm Hfa.aer.ad, 2 PUFF IH BID, (Reported) Furosemide 40 Mg Tablet, 40 MG PO DAILY, (Reported) Gabapentin 300 Mg Capsule, 300 MG PO BID, (Reported) Glimepiride 4 Mg Tablet, 4 MG PO BID, (Reported) Hydrocodone/Acetaminophen 1 Each Tablet, 1 TAB PO QID PRN for PAIN-MODERATE, ( Reported) Insulin Detemir 100 Unit/1 Ml Insuln.pen, 15 UNIT SQ 1100, (Reported) Metformin HCl 500 Mg Tablet, 1,000 MG PO BID, (Reported) TAKES 2 (500MG) TABLETS Multivit-Min/FA/Lycopene/Lut 1 Each Tablet, 1 TAB PO DAILY, (Reported) Naproxen 500 Mg Tablet, 500 MG PO BID, (Reported) Oxymetazoline HCl 30 Ml [place], 2 SPRAY NS Q4H PRN for CONGESTION, (Reported) Potassium Chloride 10 Meq Capsule.er, 10 MEQ PO HS, (Reported) Pramipexole Di-HCl 1 Mg Tablet, 1 MG PO HS, (Reported) Sertraline HCl 50 Mg Tablet, 50 MG PO HS, (Reported) Tiotropium [place] 4 Gm Mist.inhal, 2 PUFF IH DAILY, (Reported) Patient Home Medication List Home Medication List Reviewed: No Past Eywtcxr-Ymzukp-Yewenr Hx Patient Social History Marrital Status: Employed/Student: unemployed Alcohol Use: Denies Use Recreational Drug Use: No Smoking Status: Current Everyday Smoker Former Smoker, Quit: Aug 25, 2012 Type Used: Electronic/Vapor 2nd Hand Smoke Exposure: Yes Physical Abuse Screen: No Sexual Abuse: No Recent Foreign Travel: No Contact w/other who traveled: No Recent Hopitalizations: No Recent Infectious Disease Expo: No Immunizations Up To Date Tetanus Booster (TDap): Less than 5yrs Pediatric: No Date of Pneumonia Vaccine: May 21, 2013 Date of Influenza Vaccine: May 25, 2017 Seasonal Allergies Seasonal Allergies: No Surgeries Yes (TOTAL right hip, carpul tunnel bilat, LEFT KNEE SX, RIGHT ANKLE) Gallbladder, Joint Replacement, Orthopedic Respiratory Yes COPD Currently Using CPAP: No Currently Using BIPAP: No Cardiovascular Yes Chronic Edema/Swelling, Hypertension Neurological Yes Neuropathy 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 System Hx 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 Disorders: No Sexually Transmitted Disease: No HIV/AIDS: No Female 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 Disorders: 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 Genitourinary No Gastrointestinal Yes Gastroesophageal Reflux, Chronic Constipation, Diverticulosis, Hemorrhoids, Polyps, Hiatal Hernia, Gall Bladder Disease Musculoskeletal Yes Degenerate Disk Disease, Arthritis, Chronic Back Pain Endocrine History of Endocrine Disorders: Yes Endocrine Disorders: Diabetes, Insulin dep HEENT History of HEENT Disorders: No HEENT Disorders: Cataract Loss of Vision: Denies Hearing Impairment: Denies Cancer No Psychosocial History of Psychiatric Problem: Yes Behavioral Health Disorders: Sleep Difficulties, Anxiety, Depression Integumentary History of Skin or Integumenta: No Blood Transfusions History of Blood Disorders: No Adverse Reaction to a Blood Tr: No Family Medical History Significant Family History: Heart Disease, COPD, Hypertension, Lung Disease Family Hx: Completed stroke 09 BROTHER Family history: Asthma 03 MOTHER History of - respiratory disease 03 FATHER (PNEUMONIA) 03 MOTHER (ASTHMA, COPD) Constitutional: weakness, other (acute mental status change) EENTM: no symptoms reported Respiratory: short of breath Cardiovascular: no symptoms reported Gastrointestinal: no symptoms reported Genitourinary: no symptoms reported Physical Exam Vital Signs Vital Signs - First Documented 11/23/17 15:32 Temp 98.9 Pulse 90 Resp 18 B/P (MAP) 103/61 (75) Pulse Ox 97 O2 Delivery Nasal Cannula O2 Flow Rate 3.00 FiO2 100 Capillary Refill : Less Than 3 Seconds General Appearance: No Apparent Distress, WD/WN Eyes: Bilateral Eye Other (patient on BiPAP) HEENT: Normal ENT Inspection Neck: Normal Inspection Respiratory: No Accessory Muscle Use, No Respiratory Distress Cardiovascular: Regular Rate, Rhythm, No Murmur Gastrointestinal: Non Tender, Soft Assessment/Plan Assessment and Plan acute and chronic respiratory failure. Altered mental status. UTI. frequent falls. List the left leg. Hypoglycemia now. Patient a known diabetic. Noncompliance Problems: Admission Diagnosis Admission Status: Inpatient Order (span 2 midnights) Reason for Inpatient Admission: patient on BiPAP. Patient in acute mental status change. Patient having breathing problems. Patient COPD Clinical Quality Measures DVT/VTE Risk/Contraindication: Risk Factor Score Per Nursin RFS Level Per Nursing on Admit: 2=Moderate SINA BARROS DO Nov 24, 2017 07:33
[2017-11-24] MEDS: morphine INJ 4 MG/ML 1 ML (VIAL/SYRINGE) IVP SCH ×5 (07:58→22:36)
[2017-11-24] MEDS: ENOXAPARIN 40 MG/0.4 ML (LOVENOX) SYR SC SCH (08:01)
[2017-11-24] MEDS: NYSTATIN CREAM (MYCOSTATIN) 30 GM TUBE TP SCH ×3 (09:00→22:31)
[2017-11-24 09:03] LABS: ABG OXYGEN SATURATION 93 % (94-100); ABG PCO2 60 MMHG (35-45); ABG PO2 63 MMHG (79-93); ABG TCO2 33.5 MMOL/L (21.0-31.0)
[2017-11-24 09:05] LABS: ABG PH 7.34 (7.37-7.43)
[2017-11-24 09:06] LABS: ALLENS TEST POSITIVE; INSPIRED O2 BIPAP 30% FIO2
[2017-11-24 09:07] LABS: PATIENT TEMP 97.9; VENTILATOR NO
[2017-11-24] MEDS ORDERED: DEXMEDETOMIDINE INJECTION 400 MCG in NS (IVPB) 96 ML IV PRN (11:00)
[2017-11-24] MEDS: D5 1/2 NS 1000 ML IV SOLUTION 1,000 ML IV SCH (13:42)
[2017-11-24] MEDS ORDERED: DEXMEDETOMIDINE IV PRN ×2 (14:00)
[2017-11-24] MEDS ORDERED: NS IV PRN ×2 (14:00)
[2017-11-24] MEDS ORDERED: RT-ALBUINH IH (14:03)
[2017-11-24] MEDS ORDERED: ALPR0.25 PO (14:03)
[2017-11-24] MEDS ORDERED: ASPI325T32 PO (14:03)
[2017-11-24] MEDS ORDERED: ALBU2.5V4 NEB (14:03)
[2017-11-24] MEDS ORDERED: PRAM1TAB2 PO (14:03)
[2017-11-24] MEDS ORDERED: FLUT1AER IH (14:03)
[2017-11-24] MEDS ORDERED: ONDA4TAB8 SL (14:03)
[2017-11-24] MEDS ORDERED: ACET325T38 PO (14:03)
[2017-11-24] MEDS ORDERED: OLAN2.5T3 PO (14:03)
[2017-11-24 14:30] LABS: ABG BASE EXCESS 5.9 MMOL/L (-2.5-2.5); ABG OXYGEN SATURATION 89 % (94-100); ABG PCO2 52 MMHG (35-45); ABG PH 7.39 (7.37-7.43); ABG PO2 51 MMHG (79-93); ABG TCO2 32.5 MMOL/L (21.0-31.0)
[2017-11-24 14:32] LABS: ALLENS TEST POSITIVE; INSPIRED O2 BIPAP 30%; PATIENT TEMP 97.6; VENTILATOR NO
[2017-11-24] MEDS: NS IV PRN ×4 (14:32→23:31)
[2017-11-24] MEDS: DEXMEDETOMIDINE IV PRN ×4 (14:32→23:31)
[2017-11-24] MEDS ORDERED: LEVOFLOXACIN 500 MG/100 ML IV 100 ML IV SCH (21:00)
[2017-11-25] VITALS (13 sets, daily range): BP systolic 118–173; BP diastolic 58–109
[2017-11-25] MEDS: RT-ALBUTEROL/IPRATROPIUM 3 ML (DUONEB) VIAL IH SCH ×2 (02:04→06:38)
[2017-11-25] MEDS: D5 1/2 NS 1000 ML IV SOLUTION 1,000 ML IV SCH (03:06)
[2017-11-25] MEDS: inSUlin (REGULAR) HUMAN 1 UNIT/0.01 ML (CHARGE PER UNIT) SC SCH ×3 (03:14→19:01)
[2017-11-25 03:37] LABS: ABG BASE EXCESS 4.9 MMOL/L (-2.5-2.5); ABG OXYGEN SATURATION 92 % (94-100); ABG PCO2 41 MMHG (35-45); ABG PH 7.46 (7.37-7.43); ABG PO2 51 MMHG (79-93); ABG TCO2 30.2 MMOL/L (21.0-31.0); ALLENS TEST YES-POS
[2017-11-25 03:38] LABS: INSPIRED O2 21% BIPAP; PATIENT TEMP 97.1; VENTILATOR NO
[2017-11-25] MEDS: morphine INJ 4 MG/ML 1 ML (VIAL/SYRINGE) IVP SCH ×2 (04:00→08:28)
[2017-11-25 04:08] LABS: BASOPHILS % (AUTO) 0 % (0-10); EOSINOPHILS # (AUTO) 0.1 10^3/uL (0.0-0.3); EOSINOPHILS % (AUTO) 2 % (0-10); HEMATOCRIT 29 % (35-52); HEMOGLOBIN 8.8 G/DL (11.5-16.0); LYMPHOCYTES # (AUTO) 0.7 X 10^3 (1.0-4.0); LYMPHOCYTES % (AUTO) 15 % (12-44); MEAN CORPUSCULAR HEMOGLOBIN 25 PG (25-34); MEAN CORPUSCULAR HGB CONC 30 G/DL (32-36); MEAN CORPUSCULAR VOLUME 83 FL (80-99); MEAN PLATELET VOLUME 10.3 FL (7.4-10.4); MONOCYTES # (AUTO) 0.4 X 10^3 (0.0-1.0); MONOCYTES % (AUTO) 8 % (0-12); NEUTROPHILS # (AUTO) 3.5 X 10^3 (1.8-7.8); NEUTROPHILS % (AUTO) 76 % (42-75); PLATELET COUNT 400 10^3/uL (130-400); RED BLOOD COUNT 3.51 10^6/uL (4.35-5.85); RED CELL DISTRIBUTION WIDTH 16.9 % (10.0-14.5); WHITE BLOOD COUNT 4.7 10^3/uL (4.3-11.0)
[2017-11-25 04:25] LABS: BUN/CREATININE RATIO 21; CALCIUM 9.5 MG/DL (8.5-10.1); CARBON DIOXIDE 26 MMOL/L (21-32); CHLORIDE 102 MMOL/L (98-107); CREATININE SERUM 0.68 MG/DL (0.60-1.30); GFR ESTIMATED > 60; GLUCOSE 190 MG/DL (70-105); POTASSIUM 4.1 MMOL/L (3.6-5.0); SODIUM 138 MMOL/L (135-145)
[2017-11-25 04:57] LABS: MAGNESIUM 1.6 MG/DL (1.8-2.4); PHOSPHORUS 2.6 MG/DL (2.3-4.7)
[2017-11-25] MEDS ORDERED: PROMETHAZINE INJ 25 MG/ML (PHENERGAN) AMP IVP PRN (05:45)
[2017-11-25] MEDS ORDERED: HALOPERIDOL 5 MG/ML (HALDOL) AMP IV ONE (05:45)
--- NOTE | 2017-11-25 05:53 | Pulmonary Progress Note ---
Subjective Time Seen by Provider: 05:57 Subjective/Events-last exam PT is very agitated currently. Focused Exam Evaluation Lactate Level Laboratory Tests 11/23/17 15:25: Lactic Acid Level 0.90 Exam Exam Vital Signs Date Time Temp Pulse Resp B/P (MAP) Pulse Ox O2 Delivery O2 Flow Rate FiO2 11/25/17 04:23 73 32 93 21.00 11/25/17 03:00 71 32 157/109 (125) 96 NIV Bilevel 21.00 11/25/17 02:04 62 21 97 21.00 11/25/17 02:00 61 33 160/97 (118) 98 NIV Bilevel 21.00 11/25/17 01:00 67 35 168/94 (118) 99 NIV Bilevel 21.00 11/25/17 01:00 67 11/25/17 00:01 97.8 NIV Bilevel 21.00 11/25/17 00:00 59 30 141/90 (107) 99 NIV Bilevel 21.00 11/25/17 00:00 100 NIV Bilevel 21 11/24/17 23:00 64 22 134/92 (106) 96 NIV Bilevel 21.00 11/24/17 22:37 61 36 100 21.00 11/24/17 22:00 61 19 149/94 (112) 99 NIV Bilevel 21.00 11/24/17 21:00 64 19 132/77 (95) 100 NIV Bilevel 21.00 11/24/17 20:00 100 NIV Bilevel 21 11/24/17 20:00 64 20 150/91 (110) 100 NIV Bilevel 21.00 11/24/17 19:44 66 17 100 NIV Bilevel 21.00 11/24/17 19:40 66 28 100 25.00 11/24/17 19:15 97.1 75 20 138/88 (105) 100 NIV Bilevel 25.00 11/24/17 19:00 67 30 138/88 (105) 95 NIV Bilevel 25.00 11/24/17 19:00 67 11/24/17 18:22 64 24 100 25.00 11/24/17 18:00 67 20 138/83 (101) 100 NIV Bilevel 25.00 11/24/17 17:11 68 34 100 25.00 11/24/17 17:00 62 15 133/82 (99) 100 NIV Bilevel 25.00 11/24/17 16:00 72 24 128/78 (95) 100 NIV Bilevel 25.00 11/24/17 16:00 100 NIV Bilevel 25 11/24/17 15:00 65 22 128/76 (93) 99 NIV Bilevel 25.00 11/24/17 14:58 64 19 100 25.00 11/24/17 14:00 65 15 100 30.00 11/24/17 14:00 67 25 123/71 (88) 99 NIV Bilevel 30.00 11/24/17 13:00 67 19 110/66 (81) 100 NIV Bilevel 30.00 11/24/17 13:00 78 11/24/17 12:00 77 18 94/58 (70) 98 NIV Bilevel 30.00 11/24/17 11:45 97 NIV Bilevel 30 11/24/17 11:40 98.4 11/24/17 11:12 93 26 100 30.00 11/24/17 11:00 95 27 135/69 (91) 94 NIV Bilevel 30.00 11/24/17 10:00 82 26 124/73 (90) 95 NIV Bilevel 30.00 11/24/17 09:30 82 18 97 NIV Bilevel 30.00 11/24/17 09:00 81 15 129/71 (90) 96 NIV Bilevel 30.00 11/24/17 08:30 79 19 100 NIV Bilevel 30.00 11/24/17 08:30 78 19 98 30.00 11/24/17 08:00 73 12 111/71 (84) 96 NIV Bilevel 30.00 11/24/17 08:00 96 NIV Bilevel 30 11/24/17 07:35 98.3 11/24/17 07:30 73 16 114/75 (88) 96 NIV Bilevel 30.00 11/24/17 07:00 78 16 116/67 (83) 95 NIV Bilevel 30.00 11/24/17 07:00 78 11/24/17 06:30 75 13 119/65 (83) 95 NIV Bilevel 35.00 11/24/17 06:23 75 16 95 35.00 11/24/17 06:00 71 24 116/68 (84) 96 NIV Bilevel 35.00 I & O 11/25/17 07:00 Intake Total 5129 ml Output Total 1050 ml Balance 4079 ml General Appearance: WD/WN, Anxious, Mild Distress HEENT: Normal ENT Inspection Neck: Normal Inspection Respiratory: No Accessory Muscle Use, No Respiratory Distress Cardiovascular: Regular Rate, Rhythm, No Murmur Capillary Refill: Less Than 3 Seconds Gastrointestinal: non tender Neurologic/Psychiatric: Alert (intermittently somnolent), No Motor/Sensory Deficits, 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 pt is confused. ) Skin: Normal Color, Warm/Dry, Ecchymosis Results Lab Laboratory Tests 11/23/17 15:25 11/24/17 03:45 11/25/17 03:55 Assessment/Plan Assessment/Plan Acute on chronic respiratory failure -SVNs and add Pulmicort -BiPAP PRN. -Oxygen Currently sedated -D/C Ativan, Decrease morphine to 1-2mg IV Q 4PRN, Haldol PNR -INcrease BiPAP settings -Repeat ABG in 2hrs if no improvement pt will need to be intubated. Psychosis/Metabolic Monitor -Start Risperdal, Seroquel -Ativan x 1 UTI -continue Abx Hypoglycemia -D51/2 NS 60 min spent with patient, family and medical staff secondary to patients agitation/psychosis. Will transfer pt to 4th floor this afternoon if she is doing ok. I am going to sign off after pt transfers to 4th. Please call with any questions. MK RAMOS DO Nov 25, 2017 05:53
[2017-11-25] MEDS: KCL 20 MEQ TAB (K-DUR) PO SCH (06:00)
[2017-11-25] MEDS ORDERED: LORazepam INJ 2 MG/ML (ATIVAN) VIAL IV ONE (06:00)
[2017-11-25] MEDS: CATHETER FLUSH 10 ML SYR IV SCH ×3 (06:00→21:44)
[2017-11-25] MEDS: POTASSIUM CL 10MEQ/50ML IVPB 50 ML IV SCH (06:00)
[2017-11-25] MEDS ORDERED: morphine INJ 10 MG/ML 1ML (SYR OR VIAL) IVP ONE (06:15)
[2017-11-25] MEDS: RT-BUDESONIDE NEBS 0.5 MG/2ML (PULMICORT) AMP INH SCH ×2 (06:38→19:23)
[2017-11-25] MEDS ORDERED: morphine INJ 4 MG/ML 1 ML (VIAL/SYRINGE) IVP PRN (06:45)
--- NOTE | 2017-11-25 07:10 | Progress Note (SOAP) ---
Subjective Time Seen by Provider: 07:05 Subjective/Events-last exam Patient agitated this morning. Patient wants to go to the medical floor. When bed available send to medical floor today Focused Exam Evaluation Lactate Level Laboratory Tests 11/23/17 15:25: Lactic Acid Level 0.90 Objective Exam Vital Signs Date Time Temp Pulse Resp B/P (MAP) Pulse Ox O2 Delivery O2 Flow Rate FiO2 11/25/17 06:40 98 Nasal Cannula 2.00 11/25/17 06:39 98 Nasal Cannula 2.00 11/25/17 06:00 75 33 159/108 (125) 94 Nasal Cannula 3.00 11/25/17 05:45 66 28 95 Nasal Cannula 3.00 11/25/17 05:00 73 27 129/82 (98) 91 Nasal Cannula 2.00 11/25/17 04:23 73 32 93 21.00 11/25/17 04:00 97.1 64 24 173/105 (127) 98 NIV Bilevel 21.00 11/25/17 03:00 71 32 157/109 (125) 96 NIV Bilevel 21.00 11/25/17 02:04 62 21 97 21.00 11/25/17 02:00 61 33 160/97 (118) 98 NIV Bilevel 21.00 11/25/17 01:00 67 35 168/94 (118) 99 NIV Bilevel 21.00 11/25/17 01:00 67 11/25/17 00:01 97.8 NIV Bilevel 21.00 11/25/17 00:00 59 30 141/90 (107) 99 NIV Bilevel 21.00 11/25/17 00:00 100 NIV Bilevel 21 11/24/17 23:00 64 22 134/92 (106) 96 NIV Bilevel 21.00 11/24/17 22:37 61 36 100 21.00 11/24/17 22:00 61 19 149/94 (112) 99 NIV Bilevel 21.00 11/24/17 21:00 64 19 132/77 (95) 100 NIV Bilevel 21.00 11/24/17 20:00 100 NIV Bilevel 21 11/24/17 20:00 64 20 150/91 (110) 100 NIV Bilevel 21.00 11/24/17 19:44 66 17 100 NIV Bilevel 21.00 11/24/17 19:40 66 28 100 25.00 18 19:15 97.1 75 20 138/88 (105) 100 NIV Bilevel 25.00 18 19:00 67 30 138/88 (105) 95 NIV Bilevel 25.00 18 19:00 67 4/2/18 18:22 64 24 100 25.00 18 18:00 67 20 138/83 (101) 100 NIV Bilevel 25.00 18 17:11 68 34 100 25.00 18 17:00 62 15 133/82 (99) 100 NIV Bilevel 25.00 11/24/17 16:00 72 24 128/78 (95) 100 NIV Bilevel 25.00 11/24/17 16:00 100 NIV Bilevel 25 18 15:00 65 22 128/76 (93) 99 NIV Bilevel 25.00 11/24/17 14:58 64 19 100 25.00 11/24/17 14:00 65 15 100 30.00 11/24/17 14:00 67 25 123/71 (88) 99 NIV Bilevel 30.00 11/24/17 13:00 67 19 110/66 (81) 100 NIV Bilevel 30.00 11/24/17 13:00 78 11/24/17 12:00 77 18 94/58 (70) 98 NIV Bilevel 30.00 11/24/17 11:45 97 NIV Bilevel 30 11/24/17 11:40 98.4 18 11:12 93 26 100 30.00 11/24/17 11:00 95 27 135/69 (91) 94 NIV Bilevel 30.00 11/24/17 10:00 82 26 124/73 (90) 95 NIV Bilevel 30.00 11/24/17 09:30 82 18 97 NIV Bilevel 30.00 11/24/17 09:00 81 15 129/71 (90) 96 NIV Bilevel 30.00 18 08:30 79 19 100 NIV Bilevel 30.00 18 08:30 78 19 98 30.00 11/24/17 08:00 73 12 111/71 (84) 96 NIV Bilevel 30.00 11/24/17 08:00 96 NIV Bilevel 30 11/24/17 07:35 98.3 11/24/17 07:30 73 16 114/75 (88) 96 NIV Bilevel 30.00 I & O 11/25/17 06:59 Intake Total 5129 ml Output Total 1050 ml Balance 4079 ml Capillary Refill : Less Than 3 Seconds General Appearance: No Apparent Distress, WD/WN HEENT: Normal ENT Inspection Neck: Full Range of Motion, Normal Inspection Respiratory: Chest Non Tender, No Accessory Muscle Use, No Respiratory Distress Cardiovascular: Regular Rate, Rhythm, No Murmur Gastrointestinal: non tender, soft Results Lab Laboratory Tests 11/24/17 07:43: Glucometer 116H 11/24/17 08:54: Glucometer 116H, Blood Gas Puncture Site L RAD, Blood Gas Patient Temperature 97.9, Arterial Blood pH 7.34*L, Arterial Blood Partial Pressure CO2 60H, Arterial Blood Partial Pressure O2 63L, Arterial Blood HCO3 32H, Arterial Blood Total CO2 33.5H, Arterial Blood Oxygen Saturation 93L, Arterial Blood Base Excess 6.0H, [place] Test POSITIVE, Blood Gas Ventilator Setting NO, Blood Gas Inspired Oxygen BIPAP 30% FIO2 11/24/17 10:40: Glucometer 107 11/24/17 11:39: Glucometer 107 11/24/17 14:24: Blood Gas Puncture Site L RADIAL, Blood Gas Patient Temperature 97.6, Arterial Blood pH 7.39, Arterial Blood Partial Pressure CO2 52H, Arterial Blood Partial Pressure O2 51L, Arterial Blood HCO3 31H, Arterial Blood Total CO2 32.5H, Arterial Blood Oxygen Saturation 89L, Arterial Blood Base Excess 5.9H, [place] Test POSITIVE, Blood Gas Ventilator Setting NO, Blood Gas Inspired Oxygen BIPAP 30%, Glucometer 151H 11/24/17 15:59: Glucometer 177H 11/24/17 18:29: Glucometer 203H 11/24/17 20:54: Glucometer 189H 11/25/17 00:21: Glucometer 175H 11/25/17 03:10: Glucometer 187H 11/25/17 03:30: Blood Gas Puncture Site R RAD, Blood Gas Patient Temperature 97.1, Arterial Blood pH 7.46H, Arterial Blood Partial Pressure CO2 41, Arterial Blood Partial Pressure O2 51L, Arterial Blood HCO3 29H, Arterial Blood Total CO2 30.2, Arterial Blood Oxygen Saturation 92L, Arterial Blood Base Excess 4.9H, [place] Test YES-POS, Blood Gas Ventilator Setting NO, Blood Gas Inspired Oxygen 21% BIPAP 11/25/17 03:55: White Blood Count 4.7, Red Blood Count 3.51L, Hemoglobin 8.8L, Hematocrit 29L, Mean Corpuscular Volume 83, Mean Corpuscular Hemoglobin 25, Mean Corpuscular Hemoglobin Concent 30L, Red Cell Distribution Width 16.9H, Platelet Count 400, Mean Platelet Volume 10.3, Neutrophils (%) (Auto) 76H, Lymphocytes (%) (Auto) 15 , Monocytes (%) (Auto) 8, Eosinophils (%) (Auto) 2, Basophils (%) (Auto) 0, Neutrophils # (Auto) 3.5, Lymphocytes # (Auto) 0.7L, Monocytes # (Auto) 0.4, Eosinophils # (Auto) 0.1, Basophils # (Auto) 0.0, Sodium Level 138, Potassium Level 4.1, Chloride Level 102, Carbon Dioxide Level 26, Anion Gap 10, Blood Urea Nitrogen 14, Creatinine 0.68, Estimat Glomerular Filtration Rate > 60, BUN/ Creatinine Ratio 21, Glucose Level 190H, Calcium Level 9.5, Phosphorus Level 2.6 , Magnesium Level 1.6L Microbiology 11/23/17 Blood Culture - Preliminary, Resulted No growth 11/23/17 Urine Culture - Preliminary, Resulted Enterobacter aerogenes 11/23/17 Gram Stain - Final, Resulted 11/23/17 Wound Culture - Preliminary, Resulted No growth Assessment/Plan Assessment/Plan Assess & Plan/Chief Complaint Acute on chronic respiratory failure. Psychosis. UTI. Diabetes. Patient doing better physically. Clinical Quality Measures Admission Status Admission Dx acute and chronic respiratory failure. Altered mental status. UTI. frequent falls. List the left leg. Hypoglycemia now. Patient a known diabetic. Noncompliance DVT/VTE Risk/Contraindication: Risk Factor Score Per Nursin RFS Level Per Nursing on Admit: 2=Moderate Contraindications-Mechi: Other *list below* RADHA HAYES DO Nov 25, 2017 07:10
[2017-11-25] MEDS: QUEtiapine 25 MG (SEROquel) TAB IMMEDIATE RELEASE PO SCH ×2 (07:26→20:20)
[2017-11-25] MEDS: DEXMEDETOMIDINE IV PRN ×2 (07:32)
[2017-11-25] MEDS: NS IV PRN ×2 (07:32)
[2017-11-25] MEDS: MAGNESIUM 1 GM/100 ML IVPB 100 ML IV SCH ×2 (08:29→09:24)
--- NOTE | 2017-11-25 08:29 | Diagnostic Imaging Report ---
INDICATION: Respiratory failure. COMPARISON: 11/24/2017. FINDINGS: Upright portable view of the chest obtained. Heart size appears mildly prominent but unchanged. No central venous congestion. No pneumothorax or pleural fluid. There is minimal streaky atelectasis at the right lung base. The lungs are otherwise clear. IMPRESSION: Minimal atelectasis at the right lung base. No additional significant abnormalities demonstrated. Dictated by: Dictated on workstation # [id number]
[2017-11-25] MEDS ORDERED: QUEtiapine 25 MG (SEROquel) TAB IMMEDIATE RELEASE PO SCH (09:00)
[2017-11-25] MEDS ORDERED: risperiDONE 0.25 MG (RisperDAL) TAB PO SCH (09:00)
[2017-11-25] MEDS: ENOXAPARIN 40 MG/0.4 ML (LOVENOX) SYR SC SCH (09:24)
[2017-11-25] MEDS: TRIM/SULFAMETH 160/800 (SEPTRA DS) TAB PO SCH ×2 (09:25→17:14)
[2017-11-25] MEDS: ASPIRIN E.C. 325 MG (ECOTRIN) TABLET PO SCH ×2 (09:25→20:19)
[2017-11-25] MEDS: GABAPENTIN 300 MG (NEURONTIN) CAP PO SCH ×2 (09:25→20:19)
[2017-11-25] MEDS: FUROSEMIDE 40 MG (LASIX) TAB PO SCH (09:25)
[2017-11-25] MEDS: amLODIPine 10 MG (NORVASC) TAB PO SCH (09:25)
[2017-11-25] MEDS: NYSTATIN CREAM (MYCOSTATIN) 30 GM TUBE TP SCH ×3 (09:25→20:20)
[2017-11-25] MEDS: risperiDONE 1 MG (RisperDAL) TAB PO SCH ×3 (11:00→20:19)
[2017-11-25] MEDS: RT-ALBUTEROL/IPRATROPIUM 3 ML (DUONEB) VIAL INH SCH ×3 (11:03→19:23)
--- NOTE | 2017-11-25 14:29 | Physical Therapy Evaluation ---
PT Evaluation-General Medical Diagnosis Admission Date Nov 23, 2017 at 18:03 Medical Diagnosis: respiratory failure/AMS Onset Date: Nov 23, 2017 Therapy Diagnosis Therapy Diagnosis: generalized weakness/debility Height/Weight Height (Feet): 5 Height (Inches): 7.00 Weight (Pounds): 213 Weight (Ounces): 12.8 Precautions Precautions/Isolations: Fall Prevention, Standard Precautions Weight Bear Status Right Lower Extremity: Right Non Weight Bearing Left Lower Extremity: Left Full Weight Bearing Referral Physician: Christie Reason for Referral: Evaluation/Treatment Medical History Pertinent Medical History: Arthritis, COPD, DM, Heart Failure, HTN, Neuropathy , Smoking Current History MS from NH due to AMS/resp failure/hypoxia/hypercarbia Reviewed History: Yes Social History Home: Retirement Prior/[facility] Prior Level of Function Functional [place] Measure 0=Not Assessed/NA 4=Minimal Assistance 1=Total Assistance 5=Supervision or Setup 2=Maximal Assistance 6=Modified [place] 3=Moderate Assistance 7=Complete [place] Bed Mobility: 5 Transfers (B,C,W/C) (FIM): 1 PT Evaluation-Current Subjective Patient continues to be very lethargic, however, agrees to PT. Pain Numeric Pain Scale: 0-No Pain Location: No Pain Reported Objective Patient Orientation: Confused Problem Solving: Poor Attachments: Oxygen, IV ROM/Strength ROM Lower Extremities right CAM boot left LE WNL Strength Lower Extremities right LE NT/left LE 3-/5 grossly Integumentary/Posture Integumentary refer to nursing notes Bowel Incontinence: No Bladder Incontinence: No Posture kyphotic Neuromuscular (Tone, Coordination, Reflexes) diminished coordination due to inactivity Sensory Vision: Functional Hearing: Functional Sensation Right Lower Extremit: Intact Sensation Left Lower Extremity: Intact Transfers Functional [place] Measure 0=Not Assessed/NA 4=Minimal Assistance 1=Total Assistance 5=Supervision or Setup 2=Maximal Assistance 6=Modified [place] 3=Moderate Assistance 7=Complete [place] Transfers (B, C, W/C) (FIM): 1 Scootin Rollin Supine to/from Sit: 5 bed t/f WC(FIM only if WC use): 1 dependent assist with SPT due to patient inability to comply with NWB right LE. Balance Sitting Static: Fair Sitting Dynamic: Fair Standing Static: Poor Standing Dynamic: Poor Assessment/Needs 66 y.o. female, will be seen short term by skilled PT to address transfer training and exercise to improve functional strength. Rehab Potential: Fair PT Short Term Goals Short Term Goals Time Frame: Dec 01, 2017 Transfers (B,C,W/C) (FIM): 2 PT Plan Treatment/Plan Treatment Plan: Continue Plan of Care Treatment Plan: Bed Mobility, Education, Functional Activity Lio, Functional Strength, Safety, Therapeutic Exercise, Transfers Treatment Duration: Dec 01, 2017 Frequency: 5 times per week Estimated Hrs Per Day: .25 hour per day Patient and/or Family Agrees t: Yes Discharge Recommendations Therapy D/C Recommendations: Retirement Placement, [facility] ([facility]) Time/GCodes Time In: 1310 Time Out: 1327 Total Billed Treatment Time: 17 Total Billed Treatment 1 visit EVModC 17 min G Codes Necessary: LAURA Ruvalcaba PT Nov 25, 2017 14:29
--- NOTE | 2017-11-25 15:14 | Occ Therapy Progress Note ---
Therapy Progress Note 1500 Pt awakened to identify name and but was unable to give any information on prior functional status. She became agitated, stating that she needed to go to the bathroom, then fell back asleep. Unable to keep patient awake for evaluation. Will try again tomorrow. visit CHARLIE OLIVAS OT Nov 25, 2017 15:14
[2017-11-25] MEDS: ACETAMINOPHEN 325 MG TABLET/CAPLET (TYLENOL) PO PRN (15:22)
[2017-11-25] MEDS: morphine INJ 4 MG/ML 1 ML (VIAL/SYRINGE) IVP PRN ×2 (17:14→21:40)
[2017-11-25] MEDS ORDERED: OXYMETAZOLINE (AFRIN) 0.05% NA 15 ML BTL PRN (17:30)
[2017-11-25] MEDS: HALOPERIDOL 5 MG/ML (HALDOL) AMP IM PRN ×2 (18:24→23:16)
[2017-11-25] MEDS: ALPRAZolam 0.25 MG (XANAX) TAB PO PRN (19:27)
[2017-11-25] MEDS ORDERED: NICOTINE 21 MG (NICODERM) PATCH ONE (20:02)
[2017-11-25] MEDS: NICOTINE 21 MG (NICODERM) PATCH TD SCH (20:19)
[2017-11-25] MEDS: SERTRALINE 50 MG (ZOLOFT) TABLET PO SCH (20:20)
[2017-11-25] MEDS: ATORVASTATIN 10 MG (LIPITOR) TABLET PO SCH (20:20)
[2017-11-26] VITALS: BP 124/70
[2017-11-26] MEDS: inSUlin (REGULAR) HUMAN 1 UNIT/0.01 ML (CHARGE PER UNIT) SC SCH ×5 (00:58→21:48)
[2017-11-26] MEDS: D5 1/2 NS 1000 ML IV SOLUTION 1,000 ML IV SCH (01:15)
[2017-11-26] MEDS: morphine INJ 4 MG/ML 1 ML (VIAL/SYRINGE) IVP PRN ×3 (01:52→21:40)
[2017-11-26 03:27] LABS: BASOPHILS % (AUTO) 0 % (0-10); EOSINOPHILS # (AUTO) 0.1 10^3/uL (0.0-0.3); EOSINOPHILS % (AUTO) 3 % (0-10); HEMATOCRIT 29 % (35-52); HEMOGLOBIN 8.7 G/DL (11.5-16.0); LYMPHOCYTES # (AUTO) 0.9 X 10^3 (1.0-4.0); LYMPHOCYTES % (AUTO) 19 % (12-44); MEAN CORPUSCULAR HEMOGLOBIN 25 PG (25-34); MEAN CORPUSCULAR HGB CONC 30 G/DL (32-36); MEAN CORPUSCULAR VOLUME 83 FL (80-99); MEAN PLATELET VOLUME 10.2 FL (7.4-10.4); MONOCYTES # (AUTO) 0.5 X 10^3 (0.0-1.0); MONOCYTES % (AUTO) 11 % (0-12); NEUTROPHILS # (AUTO) 3.1 X 10^3 (1.8-7.8); NEUTROPHILS % (AUTO) 67 % (42-75); PLATELET COUNT 441 10^3/uL (130-400); RED BLOOD COUNT 3.45 10^6/uL (4.35-5.85); RED CELL DISTRIBUTION WIDTH 17.1 % (10.0-14.5); WHITE BLOOD COUNT 4.7 10^3/uL (4.3-11.0)
[2017-11-26 03:46] LABS: ALANINE AMINOTRANSFERASE 21 U/L (0-55); ALBUMIN 3.1 GM/DL (3.2-4.5); ALKALINE PHOSPHATASE 90 U/L (40-136); BILIRUBIN,TOTAL 0.1 MG/DL (0.1-1.0); BUN/CREATININE RATIO 12; CALCIUM 9.6 MG/DL (8.5-10.1); CARBON DIOXIDE 29 MMOL/L (21-32); CHLORIDE 103 MMOL/L (98-107); CREATININE SERUM 0.86 MG/DL (0.60-1.30); GFR ESTIMATED > 60; GLUCOSE 159 MG/DL (70-105); MAGNESIUM 1.4 MG/DL (1.8-2.4); PHOSPHORUS 4.2 MG/DL (2.3-4.7); POTASSIUM 3.8 MMOL/L (3.6-5.0); SODIUM 141 MMOL/L (135-145); TOTAL PROTEIN 5.7 GM/DL (6.4-8.2)
[2017-11-26 04:00] VITALS: BP 149/82
[2017-11-26] MEDS: HALOPERIDOL 5 MG/ML (HALDOL) AMP IM PRN (04:25)
--- NOTE | 2017-11-26 05:12 | Pulmonary Progress Note ---
Subjective Time Seen by Provider: 05:10 Subjective/Events-last exam Pt is doing well and transferring down to 4th floor. Focused Exam Evaluation Lactate Level Laboratory Tests 11/23/17 15:25: Lactic Acid Level 0.90 Exam Exam Vital Signs Date Time Temp Pulse Resp B/P (MAP) Pulse Ox O2 Delivery O2 Flow Rate FiO2 11/26/17 04:00 98.1 97 20 149/82 (104) 97 Nasal Cannula 3.00 11/26/17 00:00 97.6 98 20 124/70 (88) 96 Nasal Cannula 3.00 11/25/17 20:00 95 Nasal Cannula 3.00 11/25/17 20:00 98.6 87 22 158/82 (107) 95 Nasal Cannula 3.00 11/25/17 19:27 95 Nasal Cannula 2.00 11/25/17 16:30 98.6 95 20 118/58 (78) 97 Nasal Cannula 3.00 11/25/17 16:20 96 Nasal Cannula 3.00 11/25/17 14:05 97 Nasal Cannula 2.00 11/25/17 12:13 96 Nasal Cannula 2.00 11/25/17 12:05 97.7 68 20 132/78 (96) 98 Nasal Cannula 2.00 11/25/17 08:45 99 Nasal Cannula 3.00 11/25/17 08:27 97.7 72 22 134/83 (100) 97 Nasal Cannula 3.00 11/25/17 07:00 80 11/25/17 06:40 98 Nasal Cannula 2.00 11/25/17 06:39 98 Nasal Cannula 2.00 11/25/17 06:00 75 33 159/108 (125) 94 Nasal Cannula 3.00 11/25/17 05:45 66 28 95 Nasal Cannula 3.00 I & O 11/26/17 07:00 Intake Total 3050 ml Output Total 3720 ml Balance -670 ml General Appearance: No Apparent Distress, WD/WN HEENT: Normal ENT Inspection Neck: Full Range of Motion, Normal Inspection Respiratory: Chest Non Tender, No Accessory Muscle Use, No Respiratory Distress Cardiovascular: Regular Rate, Rhythm, No Murmur Capillary Refill: Less Than 3 Seconds Gastrointestinal: non tender, soft Neurologic/Psychiatric: Alert (intermittently somnolent), No Motor/Sensory Deficits, procedures analyst II-XII Norm as Tested, Other (mood is intermittently irritable. pt is confused. ) Skin: Normal Color, Warm/Dry, Ecchymosis Results Lab Laboratory Tests 11/25/17 03:55 11/26/17 03:15 Assessment/Plan Assessment/Plan Acute on chronic respiratory failure -SVNs and add Pulmicort -BiPAP PRN. -Oxygen Psychosis/Metabolic Monitor -Continue Risperdal, Seroquel -Ativan x 1 UTI -continue Abx Hypoglycemia -D51/2 NS PT is doing well from pulmonary standpoint and is ok for discharge. 232 MK RAMOS DO Nov 26, 2017 05:12
[2017-11-26] MEDS: CATHETER FLUSH 10 ML SYR IV SCH ×3 (05:32→21:40)
[2017-11-26] MEDS: TRIM/SULFAMETH 160/800 (SEPTRA DS) TAB PO SCH ×2 (06:30→17:45)
[2017-11-26] MEDS: ENOXAPARIN 40 MG/0.4 ML (LOVENOX) SYR SC SCH (07:08)
--- NOTE | 2017-11-26 07:33 | Diagnostic Imaging Report ---
INDICATION: Respiratory failure. COMPARISON: 11/25/2017. FINDINGS: Lungs are well-aerated. There has been clearing of basilar atelectasis since previous exam. There are no infiltrates. The heart is not enlarged. There is no pulmonary edema. No hilar adenopathy. There are few calcified granuloma noted bilaterally. IMPRESSION: 1. The lungs are well-aerated. No evidence of infiltrate or residual atelectasis. Dictated by: Dictated on workstation # [id number]
[2017-11-26 07:36] VITALS: BP 122/59
[2017-11-26] MEDS: RT-ALBUTEROL/IPRATROPIUM 3 ML (DUONEB) VIAL INH SCH ×3 (07:39→19:34)
[2017-11-26] MEDS: RT-BUDESONIDE NEBS 0.5 MG/2ML (PULMICORT) AMP INH SCH ×2 (07:39→19:34)
--- NOTE | 2017-11-26 07:40 | Progress Note (SOAP) ---
Subjective Time Seen by Provider: 07:40 Subjective/Events-last exam Patient clinically doing better. Patient up all night. To monitor her confusion today. Magnesium low. Breathing better Focused Exam Evaluation Lactate Level Laboratory Tests 11/23/17 15:25: Lactic Acid Level 0.90 Objective Exam Vital Signs Date Time Temp Pulse Resp B/P (MAP) Pulse Ox O2 Delivery O2 Flow Rate FiO2 11/26/17 04:00 98.1 97 20 149/82 (104) 97 Nasal Cannula 3.00 11/26/17 00:00 97.6 98 20 124/70 (88) 96 Nasal Cannula 3.00 11/25/17 20:00 95 Nasal Cannula 3.00 11/25/17 20:00 98.6 87 22 158/82 (107) 95 Nasal Cannula 3.00 11/25/17 19:27 95 Nasal Cannula 2.00 11/25/17 16:30 98.6 95 20 118/58 (78) 97 Nasal Cannula 3.00 11/25/17 16:20 96 Nasal Cannula 3.00 11/25/17 14:05 97 Nasal Cannula 2.00 11/25/17 12:13 96 Nasal Cannula 2.00 11/25/17 12:05 97.7 68 20 132/78 (96) 98 Nasal Cannula 2.00 11/25/17 08:45 99 Nasal Cannula 3.00 11/25/17 08:27 97.7 72 22 134/83 (100) 97 Nasal Cannula 3.00 I & O 11/26/17 07:00 Intake Total 3450 ml Output Total 4095 ml Balance -645 ml Capillary Refill : Less Than 3 Seconds General Appearance: No Apparent Distress, WD/WN HEENT: Normal ENT Inspection Neck: Full Range of Motion, Normal Inspection Respiratory: No Accessory Muscle Use, No Respiratory Distress, Decreased Breath Sounds Cardiovascular: Regular Rate, Rhythm, No Murmur Gastrointestinal: non tender, soft Results Lab Laboratory Tests 11/26/17 03:15 Laboratory Tests 11/25/17 07:41: Glucometer 94 11/25/17 10:48: Glucometer 152H 11/25/17 13:59: Glucometer 197H 11/25/17 18:46: Glucometer 196H 11/25/17 22:10: Glucometer 157H 11/26/17 00:56: Glucometer 189H 11/26/17 03:15: White Blood Count 4.7, Red Blood Count 3.45L, Hemoglobin 8.7L, Hematocrit 29L, Mean Corpuscular Volume 83, Mean Corpuscular Hemoglobin 25, Mean Corpuscular Hemoglobin Concent 30L, Red Cell Distribution Width 17.1H, Platelet Count 441H, Mean Platelet Volume 10.2, Neutrophils (%) (Auto) 67, Lymphocytes (%) (Auto) 19 , Monocytes (%) (Auto) 11, Eosinophils (%) (Auto) 3, Basophils (%) (Auto) 0, Neutrophils # (Auto) 3.1, Lymphocytes # (Auto) 0.9L, Monocytes # (Auto) 0.5, Eosinophils # (Auto) 0.1, Basophils # (Auto) 0.0, Sodium Level 141, Potassium Level 3.8, Chloride Level 103, Carbon Dioxide Level 29, Anion Gap 9, Blood Urea Nitrogen 10, Creatinine 0.86, Estimat Glomerular Filtration Rate > 60, BUN/ Creatinine Ratio 12, Glucose Level 159H, Calcium Level 9.6, Phosphorus Level 4.2 , Magnesium Level 1.4L, Total Bilirubin 0.1, Aspartate Amino Transf (AST/SGOT) 18, Alanine Aminotransferase (ALT/SGPT) 21, Alkaline Phosphatase 90, Total Protein 5.7L, Albumin 3.1L 11/26/17 05:01: Glucometer 123H Microbiology 11/23/17 Blood Culture - Preliminary, Resulted No growth 11/23/17 Urine Culture - Preliminary, Resulted Enterobacter aerogenes 11/23/17 Gram Stain - Final, Resulted 11/23/17 Wound Culture - Preliminary, Resulted See Comments Assessment/Plan Assessment/Plan Assess & Plan/Chief Complaint Acute on chronic respiratory failure. Psychosis. UTI. Diabetes. Patient doing better physically.. . 11/26/17. Acute and chronic respiratory failure that her. Psychosis. Diabetes. UTI. Patient did not sleep all night. To watch patient's confusion today Clinical Quality Measures Admission Status Admission Dx acute and chronic respiratory failure. Altered mental status. UTI. frequent falls. List the left leg. Hypoglycemia now. Patient a known diabetic. Noncompliance DVT/VTE Risk/Contraindication: Risk Factor Score Per Nursin RFS Level Per Nursing on Admit: 2=Moderate Contraindications-Mechi: Other *list below* RADHA HAYES DO Nov 26, 2017 07:40
[2017-11-26] MEDS: FUROSEMIDE 40 MG (LASIX) TAB PO SCH (08:05)
[2017-11-26] MEDS: amLODIPine 10 MG (NORVASC) TAB PO SCH (08:05)
[2017-11-26] MEDS: GABAPENTIN 300 MG (NEURONTIN) CAP PO SCH ×2 (08:05→20:33)
[2017-11-26] MEDS: HALOPERIDOL 2 MG (HALDOL) TABLET PO SCH ×3 (08:05→20:30)
[2017-11-26] MEDS: ASPIRIN E.C. 325 MG (ECOTRIN) TABLET PO SCH ×2 (08:05→20:32)
[2017-11-26] MEDS: NYSTATIN CREAM (MYCOSTATIN) 30 GM TUBE TP SCH ×3 (08:06→21:40)
[2017-11-26] MEDS: MAGNESIUM 1 GM/100 ML IVPB 100 ML IV SCH ×3 (08:06→10:00)
[2017-11-26] MEDS: NICOTINE 21 MG (NICODERM) PATCH TD SCH (08:06)
--- NOTE | 2017-11-26 09:31 | Physical Therapy Daily Note ---
PT Daily Note-Current Subjective Pt sitting in recliner upon arrival with Aide present. Pt agrees to PT and wants to lay back in bed. Pain Comment: Pt reports pain when asked but doesn't rate and is generalized. Mental Status Patient Orientation: Person, Place, Situation Attachments: Oxygen (3L), IV Transfers Functional [place] Measure 0=Not Assessed/NA 4=Minimal Assistance 1=Total Assistance 5=Supervision or Setup 2=Maximal Assistance 6=Modified [place] 3=Moderate Assistance 7=Complete IndependenceIRFPAI Quality Coding Scale 6 Independent with activity with or without an assistive device 5 Patient requires set up or clean up by helper. Patient completes activity by themselves 4 Supervision or touching assist (CGA). [place] provide cues , steadying assist 3 The helper provides less than half the effort to complete the activity 2 The helper provides more than half the effort to complete the activity 1 Dependent. The helper does all the effort to complete an activity 7 Patient refused to complete or attempt activity 9 The patient did not perform the activity before the current illness or injury 88 Not attempted due to Medical conditions or safety concerns Scootin Rollin Supine to/from Sit: 3 Sit to/from Stand: 2 Weight Bearing Right Lower Extremity: Right Non Weight Bearing Left Lower Extremity: Left Full Weight Bearing Exercises Supine Ex: Ankle pumps, Quad Set, Heel Slides, Hip abd/add Supine Reps: 10 Treatments Pt transfers from recliner to standing at Max A then to EOB to rest before laying Supine in bed. Pt rolls to R side with help. Pt then decides to roll back to Supine. Pt completes Supine Ex before feeling like she needed to sit up at EOB. Pt resting EOB with present. Pt has all needs met including call light. Assessment Current Status: Fair Progress Pt didn't sleep well last night and is anxious today. PT Short Term Goals Short Term Goals Time Frame: Dec 01, 2017 Transfers (B,C,W/C) (FIM): 2 PT Plan Problem List Problem List: Activity Tolerance, Functional Strength, Safety, Balance, Gait, Transfer, Bed Mobility Treatment/Plan Treatment Plan: Continue Plan of Care Treatment Plan: Bed Mobility, Education, Functional Activity Lio, Functional Strength, Safety, Therapeutic Exercise, Transfers Treatment Duration: Dec 01, 2017 Frequency: 5 times per week Estimated Hrs Per Day: .25 hour per day Patient and/or Family Agrees t: Yes Safety Risks/Education Patient Education: Transfer Techniques, Correct Positioning, Safety Issues Teaching Recipient: Patient Teaching Methods: Discussion Response to Teaching: Verbalize Understanding Time/GCodes Time In: 855 Time Out: 912 Total Billed Treatment Time: 17 Total Billed Treatment 1, FA (17m) BRYCE MADRID PTA Nov 26, 2017 09:31
[2017-11-26] MEDS: ALPRAZolam 0.25 MG (XANAX) TAB PO PRN ×2 (09:33→21:40)
[2017-11-26] MEDS: ACETAMINOPHEN 325 MG TABLET/CAPLET (TYLENOL) PO PRN ×2 (09:33→20:32)
[2017-11-26] MEDS: NICOTINE PATCH REMOVAL TP SCH (09:44)
[2017-11-26 12:00] VITALS: BP 120/56
[2017-11-26 16:13] VITALS: BP 121/64
[2017-11-26] MEDS: SERTRALINE 50 MG (ZOLOFT) TABLET PO SCH (20:32)
[2017-11-26] MEDS: ATORVASTATIN 10 MG (LIPITOR) TABLET PO SCH (20:33)
[2017-11-27] MEDS: HALOPERIDOL 5 MG/ML (HALDOL) AMP IM PRN (01:13)
[2017-11-27 04:00] VITALS: BP 119/64
[2017-11-27] MEDS: morphine INJ 4 MG/ML 1 ML (VIAL/SYRINGE) IVP PRN (04:05)
[2017-11-27] MEDS: inSUlin (REGULAR) HUMAN 1 UNIT/0.01 ML (CHARGE PER UNIT) SC SCH ×2 (06:13→11:00)
--- NOTE | 2017-11-27 06:36 | Pulmonary Progress Note ---
Subjective Time Seen by Provider: 06:35 Subjective/Events-last exam No complications noted. Exam Exam Vital Signs Date Time Temp Pulse Resp B/P (MAP) Pulse Ox O2 Delivery O2 Flow Rate FiO2 11/27/17 04:00 98.4 101 22 119/64 (82) 94 Nasal Cannula 3.50 11/26/17 20:00 Nasal Cannula 3.00 11/26/17 19:34 93 11/26/17 19:34 93 Nasal Cannula 3.50 11/26/17 16:13 97.5 85 20 121/64 (83) 95 Nasal Cannula 3.00 11/26/17 14:51 81 Room Air 11/26/17 12:00 97.0 90 18 120/56 (77) 96 Nasal Cannula 3.00 11/26/17 07:44 96 11/26/17 07:39 95 Nasal Cannula 3.00 11/26/17 07:36 98.4 96 16 122/59 (80) 95 Nasal Cannula 3.00 I & O 11/27/17 07:00 Intake Total 1200 ml Balance 1200 ml General Appearance: No Apparent Distress, WD/WN HEENT: Normal ENT Inspection Neck: Full Range of Motion, Normal Inspection Respiratory: No Accessory Muscle Use, No Respiratory Distress, Decreased Breath Sounds Cardiovascular: Regular Rate, Rhythm, No Murmur Capillary Refill: Less Than 3 Seconds Gastrointestinal: non tender, soft Neurologic/Psychiatric: Alert (intermittently somnolent), No Motor/Sensory Deficits, paper machine back tender II-XII Norm as Tested, Other (mood is intermittently irritable. pt is confused. ) Skin: Normal Color, Warm/Dry, Ecchymosis Results Lab Laboratory Tests 11/26/17 03:15 Assessment/Plan Assessment/Plan Acute on chronic respiratory failure -SVNs and add Pulmicort -BiPAP PRN. -Oxygen Psychosis/Metabolic Monitor - Risperdal, Seroquel UTI - Abx Hypoglycemia -D51/2 NS PT is doing well from pulmonary standpoint and is ok for discharge. I am going to sign off at this time. 232 MK RAMOS DO Nov 27, 2017 06:36
[2017-11-27 06:44] LABS: BASOPHILS % (AUTO) 0 % (0-10); EOSINOPHILS # (AUTO) 0.1 10^3/uL (0.0-0.3); EOSINOPHILS % (AUTO) 2 % (0-10); HEMATOCRIT 27 % (35-52); HEMOGLOBIN 8.2 G/DL (11.5-16.0); LYMPHOCYTES # (AUTO) 0.9 X 10^3 (1.0-4.0); LYMPHOCYTES % (AUTO) 21 % (12-44); MEAN CORPUSCULAR HEMOGLOBIN 25 PG (25-34); MEAN CORPUSCULAR HGB CONC 30 G/DL (32-36); MEAN CORPUSCULAR VOLUME 83 FL (80-99); MEAN PLATELET VOLUME 10.6 FL (7.4-10.4); MONOCYTES # (AUTO) 0.5 X 10^3 (0.0-1.0); MONOCYTES % (AUTO) 12 % (0-12); NEUTROPHILS % (AUTO) 66 % (42-75); PLATELET COUNT 431 10^3/uL (130-400); RED BLOOD COUNT 3.28 10^6/uL (4.35-5.85); RED CELL DISTRIBUTION WIDTH 16.9 % (10.0-14.5); WHITE BLOOD COUNT 4.5 10^3/uL (4.3-11.0)
[2017-11-27] MEDS: CATHETER FLUSH 10 ML SYR IV SCH (07:08)
[2017-11-27] MEDS: TRIM/SULFAMETH 160/800 (SEPTRA DS) TAB PO SCH (07:08)
[2017-11-27] MEDS: ENOXAPARIN 40 MG/0.4 ML (LOVENOX) SYR SC SCH (07:08)
[2017-11-27 07:12] LABS: BUN/CREATININE RATIO 11; CALCIUM 9.8 MG/DL (8.5-10.1); CARBON DIOXIDE 26 MMOL/L (21-32); CHLORIDE 100 MMOL/L (98-107); CREATININE SERUM 0.83 MG/DL (0.60-1.30); GFR ESTIMATED > 60; GLUCOSE 111 MG/DL (70-105); MAGNESIUM 1.7 MG/DL (1.8-2.4); PHOSPHORUS 5.2 MG/DL (2.3-4.7); SODIUM 137 MMOL/L (135-145)
[2017-11-27 07:20] VITALS: BP 136/69
--- NOTE | 2017-11-27 07:59 | Progress Note (SOAP) ---
Subjective Time Seen by Provider: 07:55 Subjective/Events-last exam Patient breathing good. Patient more alert today. Patient not psychotic. Patient knows the date, president, 10-2 equals. Patient will she's in the hospital. Plan to discharge today area Nurse to call me at 11 a.m. Objective Exam Vital Signs Date Time Temp Pulse Resp B/P (MAP) Pulse Ox O2 Delivery O2 Flow Rate FiO2 11/27/17 07:20 97.9 98 20 136/69 (91) 95 Nasal Cannula 3.50 11/27/17 04:00 98.4 101 22 119/64 (82) 94 Nasal Cannula 3.50 11/26/17 20:00 Nasal Cannula 3.00 11/26/17 19:34 93 11/26/17 19:34 93 Nasal Cannula 3.50 11/26/17 16:13 97.5 85 20 121/64 (83) 95 Nasal Cannula 3.00 11/26/17 14:51 81 Room Air 11/26/17 12:00 97.0 90 18 120/56 (77) 96 Nasal Cannula 3.00 I & O 11/27/17 07:00 Intake Total 1200 ml Balance 1200 ml Capillary Refill : Less Than 3 Seconds General Appearance: No Apparent Distress, WD/WN HEENT: Normal ENT Inspection Neck: Full Range of Motion, Normal Inspection Respiratory: No Accessory Muscle Use, No Respiratory Distress, Decreased Breath Sounds Cardiovascular: Regular Rate, Rhythm, No Murmur Gastrointestinal: non tender, soft Results Lab Laboratory Tests 11/26/17 10:50: Glucometer 220H 11/26/17 16:18: Glucometer 179H 11/26/17 21:42: Glucometer 276H 11/27/17 05:51: Glucometer 121H 11/27/17 05:52: White Blood Count 4.5, Red Blood Count 3.28L, Hemoglobin 8.2L, Hematocrit 27L, Mean Corpuscular Volume 83, Mean Corpuscular Hemoglobin 25, Mean Corpuscular Hemoglobin Concent 30L, Red Cell Distribution Width 16.9H, Platelet Count 431H, Mean Platelet Volume 10.6H, Neutrophils (%) (Auto) 66, Lymphocytes (%) (Auto) 21 , Monocytes (%) (Auto) 12, Eosinophils (%) (Auto) 2, Basophils (%) (Auto) 0, Neutrophils # (Auto) 3.0, Lymphocytes # (Auto) 0.9L, Monocytes # (Auto) 0.5, Eosinophils # (Auto) 0.1, Basophils # (Auto) 0.0, Sodium Level 137, Potassium Level 4.0, Chloride Level 100, Carbon Dioxide Level 26, Anion Gap 11, Blood Urea Nitrogen 9, Creatinine 0.83, Estimat Glomerular Filtration Rate > 60, BUN/ Creatinine Ratio 11, Glucose Level 111H, Calcium Level 9.8, Phosphorus Level 5.2H, Magnesium Level 1.7L Microbiology 11/23/17 Blood Culture - Preliminary, Resulted No growth 11/23/17 Urine Culture - Preliminary, Resulted Enterobacter aerogenes 11/23/17 Gram Stain - Final, Resulted 11/23/17 Wound Culture - Preliminary, Resulted See Comments Assessment/Plan Assessment/Plan Assess & Plan/Chief Complaint Acute on chronic respiratory failure. Psychosis. UTI. Diabetes. Patient doing better physically.. . 11/26/17. Acute and chronic respiratory failure that her. Psychosis. Diabetes. UTI. Patient did not sleep all night. To watch patient's confusion today. . . Patient doing much better. Patient not psychotic. Haldol working. Acute and chronic respiratory failure. Diabetes. UTI. Plan to discharge today. Nurse to call at 11 a.m. Clinical Quality Measures Admission Status Admission Dx acute and chronic respiratory failure. Altered mental status. UTI. frequent falls. List the left leg. Hypoglycemia now. Patient a known diabetic. Noncompliance DVT/VTE Risk/Contraindication: Risk Factor Score Per Nursin RFS Level Per Nursing on Admit: 2=Moderate Contraindications-Mechi: Other *list below* RADHA HAYES DO Nov 27, 2017 07:59
[2017-11-27] MEDS ORDERED: MAGNESIUM 1 GM/100 ML IVPB 100 ML IV NR (08:00)
[2017-11-27] MEDS: RT-BUDESONIDE NEBS 0.5 MG/2ML (PULMICORT) AMP INH SCH (08:32)
[2017-11-27] MEDS: RT-ALBUTEROL/IPRATROPIUM 3 ML (DUONEB) VIAL INH SCH ×2 (08:32→13:43)
[2017-11-27] MEDS: NICOTINE PATCH REMOVAL TP SCH (10:35)
[2017-11-27] MEDS: FUROSEMIDE 40 MG (LASIX) TAB PO SCH (10:35)
[2017-11-27] MEDS: HALOPERIDOL 2 MG (HALDOL) TABLET PO SCH (10:36)
[2017-11-27] MEDS: NICOTINE 21 MG (NICODERM) PATCH TD SCH (10:36)
[2017-11-27] MEDS: GABAPENTIN 300 MG (NEURONTIN) CAP PO SCH (10:36)
[2017-11-27] MEDS: amLODIPine 10 MG (NORVASC) TAB PO SCH (10:36)
[2017-11-27] MEDS: NYSTATIN CREAM (MYCOSTATIN) 30 GM TUBE TP SCH (10:37)
[2017-11-27] MEDS: ASPIRIN E.C. 325 MG (ECOTRIN) TABLET PO SCH (10:37)
[2017-11-27] MEDS ORDERED: HALO2TAB PO (10:53)
--- NOTE | 2017-11-27 10:57 | Discharge Inst-Skilled Nursing ---
Discharge Inst-Skilled NF Consult/Follow Up/Orders Follow Up Appt.: 2 weeks Skilled NF Admit to: [facility] Certification (SNF) I certify that SNF services are required to be given on an inpatient basis because of the above named patient's need for intermediate care on a continuing basis for the conditions(s) for which he/she was receiving inpatient hospital services prior to his/her transfer to the SNF. [facility] Facility Order: Nursing Services, Fitting Room Operator-Evaluate & Treat, Physical Therapy-Evaluate & Treat Discharge Diet: ADA Diet New & Resume Previous Orders Sina Hayes Nov 27, 2017 10:55 SINA HAYES DO Nov 27, 2017 10:57
[2017-11-27 11:10] VITALS: BP 136/66
--- NOTE | 2017-11-27 11:10 | Discharge Inst-Skilled Nursing ---
Discharge Inst-Skilled NF Consult/Follow Up/Orders Skilled NF Admit to: [facility] Certification (SNF) I certify that SNF services are required to be given on an inpatient basis because of the above named patient's need for [facility] care on a continuing basis for the conditions(s) for which he/she was receiving inpatient hospital services prior to his/her transfer to the SNF. Long-Term Facility Order: Nursing Services, Kiln Remover-Evaluate & Treat, Physical Therapy-Evaluate & Treat Discharge Diet: ADA Diet New & Resume Previous Orders Sina Hayes Nov 27, 2017 11:09 SINA HAYES DO Nov 27, 2017 11:10 am
[2017-11-27 14:30] VITALS: BP 136/66
--- NOTE | 2017-11-28 06:33 | Discharge Summary ---
Diagnosis/Chief Complaint Date of Admission Nov 23, 2017 at 18:03 Date of Discharge Nov 27, 2017 at 14:30 Discharge Date: Nov 27, 2017 Discharge Time: 1300 Discharge Diagnosis Acute and chronic respiratory failure with hypercapnia. Acute and chronic respiratory failure with hypoxia. Altered mental status. Anxiety disorder. UTI. Psychosis. Noncompliance. Falls. Diabetes. COPD. GERD. Depression. Trimalleolar fracture of the ankle.. Hypoglycemia Reason Hospital Visit patient sedated. Patient had correction.Patient recently had surgery of the right ankle. Patient noncompliant and correction. Patient has COPD and continues today. Recently patient had multiple falls at the correction. Patient having low back pain. Patient in intensive care unit Discharge Summary Consultations Pulmonology Discharge Physical Examination Allergies: Coded Allergies: enalapril (Verified Allergy, Severe, ANAPHYLAXIS, 08/22/13) Vitals & I&Os Vital Signs Date Time Temp Pulse Resp B/P (MAP) Pulse Ox O2 Delivery O2 Flow Rate FiO2 11/27/17 14:30 113 22 136/66 92 Nasal Cannula 3.50 11/27/17 11:10 99.7 11/25/17 04:00 21 Hospital Course Patient in hospital had psychosis. Patient improved with Haldol. Patient transferred to correction in [place]. Patient be followed in office and orthopedic Labs (last 24 hrs) Laboratory Tests 11/23/17 15:25: White Blood Count 5.8, Red Blood Count 3.74L, Hemoglobin 9.3L, Hematocrit 32L, Mean Corpuscular Volume 85, Mean Corpuscular Hemoglobin 25, Mean Corpuscular Hemoglobin Concent 29L, Red Cell Distribution Width 16.5H, Platelet Count 517H, Mean Platelet Volume 9.9, Neutrophils (%) (Auto) 73, Lymphocytes (%) (Auto) 17, Monocytes (%) (Auto) 7, Eosinophils (%) (Auto) 2, Basophils (%) (Auto) 1, Neutrophils # (Auto) 4.2, Lymphocytes # (Auto) 1.0, Monocytes # (Auto) 0.4, Eosinophils # (Auto) 0.1, Basophils # (Auto) 0.0, Prothrombin Time 12.7, INR Comment 0.9, Activated Partial Thromboplast Time 30, Sodium Level 142, Potassium Level 4.3, Chloride Level 100, Carbon Dioxide Level 32, Anion Gap 10, Blood Urea Nitrogen 22H, Creatinine 0.86, Estimat Glomerular Filtration Rate > 60, BUN/Creatinine Ratio 26, Glucose Level 47*L, Lactic Acid Level 0.90, Calcium Level 9.9, Total Bilirubin 0.2, Aspartate Amino Transf (AST/SGOT) 17, Alanine Aminotransferase (ALT/SGPT) 24, Alkaline Phosphatase 91, C-Reactive Protein High Sensitivity 1.89H, B-Type Natriuretic Peptide 66.1, Total Protein 6.3L, Albumin 3.5 11/23/17 15:46: Urine Color YELLOW, Urine Clarity SLIGHTLY CLOUDY, Urine pH 7, Urine Specific [place] 1.010L, Urine Protein NEGATIVE, Urine Glucose (UA) NEGATIVE, Urine Ketones NEGATIVE, Urine Nitrite POSITIVEH, Urine Bilirubin NEGATIVE, Urine Urobilinogen NORMAL, Urine Leukocyte Esterase 2+H, Urine RBC (Auto) NEGATIVE, Urine RBC NONE, Urine WBC 5-10H, Urine Crystals NONE, Urine Bacteria FEWH, Urine Casts NONE, Urine Mucus NEGATIVE, Urine Culture Indicated YES 11/23/17 16:20: Blood Gas Puncture Site LT RAD, Blood Gas Patient Temperature 98.9, Arterial Blood pH 7.28*L, Arterial Blood Partial Pressure CO2 73*H, Arterial Blood Partial Pressure O2 35*L, Arterial Blood HCO3 33H, Arterial Blood Total CO2 35.3H, Arterial Blood Oxygen Saturation 56L, Arterial Blood Base Excess 6.5H, [place] Test YES-POS, Blood Gas Ventilator Setting NO, Blood Gas Inspired Oxygen 3L 11/23/17 17:58: Glucometer 64L 11/23/17 20:07: Glucometer 91 11/23/17 21:05: Glucometer 64L 11/23/17 22:10: Glucometer 79 11/23/17 23:01: Glucometer 64L 11/23/17 23:48: Blood Gas Puncture Site L RAD, Blood Gas Patient Temperature 98.7, Arterial Blood pH 7.31*L, Arterial Blood Partial Pressure CO2 66H, Arterial Blood Partial Pressure O2 67L, Arterial Blood HCO3 32H, Arterial Blood Total CO2 34.1H , Arterial Blood Oxygen Saturation 94, Arterial Blood Base Excess 6.1H, [place] Test YES-POS, Blood Gas Ventilator Setting NO, Blood Gas Inspired Oxygen 35% BIPAP 11/24/17 00:08: Glucometer 63L 11/24/17 01:03: Glucometer 164H 11/24/17 02:14: Glucometer 121H 11/24/17 03:05: Glucometer 115H 11/24/17 03:45: White Blood Count 4.2L, Red Blood Count 3.33L, Hemoglobin 8.4L, Hematocrit 28L, Mean Corpuscular Volume 85, Mean Corpuscular Hemoglobin 25, Mean Corpuscular Hemoglobin Concent 30L, Red Cell Distribution Width 16.7H, Platelet Count 439H, Mean Platelet Volume 9.8, Neutrophils (%) (Auto) 77H, Lymphocytes (%) (Auto) 13 , Monocytes (%) (Auto) 8, Eosinophils (%) (Auto) 2, Basophils (%) (Auto) 0, Neutrophils # (Auto) 3.3, Lymphocytes # (Auto) 0.5L, Monocytes # (Auto) 0.3, Eosinophils # (Auto) 0.1, Basophils # (Auto) 0.0, Sodium Level 142, Potassium Level 3.4L, Chloride Level 102, Carbon Dioxide Level 29, Anion Gap 11, Blood Urea Nitrogen 22H, Creatinine 0.77, Estimat Glomerular Filtration Rate > 60, BUN /Creatinine Ratio 29, Glucose Level 103, Calcium Level 9.1, Phosphorus Level 5.0H, Magnesium Level 1.4L, Total Bilirubin 0.2, Aspartate Amino Transf (AST/ SGOT) 18, Alanine Aminotransferase (ALT/SGPT) 21, Alkaline Phosphatase 75, B- Type Natriuretic Peptide 58.7, Total Protein 5.4L, Albumin 3.0L 11/24/17 04:09: Glucometer 97 11/24/17 04:24: Blood Gas Puncture Site L RAD, Blood Gas Patient Temperature 97.9, Arterial Blood pH 7.30*L, Arterial Blood Partial Pressure CO2 66H, Arterial Blood Partial Pressure O2 65L, Arterial Blood HCO3 31H, Arterial Blood Total CO2 33.3H , Arterial Blood Oxygen Saturation 94, Arterial Blood Base Excess 5.1H, [place] Test YES-POS, Blood Gas Ventilator Setting NO, Blood Gas Inspired Oxygen 35% BIPAP 11/24/17 05:50: Glucometer 88 11/24/17 07:43: Glucometer 116H 11/24/17 08:54: Glucometer 116H, Blood Gas Puncture Site L RAD, Blood Gas Patient Temperature 97.9, Arterial Blood pH 7.34*L, Arterial Blood Partial Pressure CO2 60H, Arterial Blood Partial Pressure O2 63L, Arterial Blood HCO3 32H, Arterial Blood Total CO2 33.5H, Arterial Blood Oxygen Saturation 93L, Arterial Blood Base Excess 6.0H, [place] Test POSITIVE, Blood Gas Ventilator Setting NO, Blood Gas Inspired Oxygen BIPAP 30% FIO2 11/24/17 10:40: Glucometer 107 11/24/17 11:39: Glucometer 107 11/24/17 14:24: Glucometer 151H, Blood Gas Puncture Site L RADIAL, Blood Gas Patient Temperature 97.6, Arterial Blood pH 7.39, Arterial Blood Partial Pressure CO2 52H, Arterial Blood Partial Pressure O2 51L, Arterial Blood HCO3 31H, Arterial Blood Total CO2 32.5H, Arterial Blood Oxygen Saturation 89L, Arterial Blood Base Excess 5.9H, [place] Test POSITIVE, Blood Gas Ventilator Setting NO, Blood Gas Inspired Oxygen BIPAP 30% 11/24/17 15:59: Glucometer 177H 11/24/17 18:29: Glucometer 203H 11/24/17 20:54: Glucometer 189H 11/25/17 00:21: Glucometer 175H 11/25/17 03:10: Glucometer 187H 11/25/17 03:30: Blood Gas Puncture Site R RAD, Blood Gas Patient Temperature 97.1, Arterial Blood pH 7.46H, Arterial Blood Partial Pressure CO2 41, Arterial Blood Partial Pressure O2 51L, Arterial Blood HCO3 29H, Arterial Blood Total CO2 30.2, Arterial Blood Oxygen Saturation 92L, Arterial Blood Base Excess 4.9H, [place] Test YES-POS, Blood Gas Ventilator Setting NO, Blood Gas Inspired Oxygen 21% BIPAP 11/25/17 03:55: White Blood Count 4.7, Red Blood Count 3.51L, Hemoglobin 8.8L, Hematocrit 29L, Mean Corpuscular Volume 83, Mean Corpuscular Hemoglobin 25, Mean Corpuscular Hemoglobin Concent 30L, Red Cell Distribution Width 16.9H, Platelet Count 400, Mean Platelet Volume 10.3, Neutrophils (%) (Auto) 76H, Lymphocytes (%) (Auto) 15 , Monocytes (%) (Auto) 8, Eosinophils (%) (Auto) 2, Basophils (%) (Auto) 0, Neutrophils # (Auto) 3.5, Lymphocytes # (Auto) 0.7L, Monocytes # (Auto) 0.4, Eosinophils # (Auto) 0.1, Basophils # (Auto) 0.0, Sodium Level 138, Potassium Level 4.1, Chloride Level 102, Carbon Dioxide Level 26, Anion Gap 10, Blood Urea Nitrogen 14, Creatinine 0.68, Estimat Glomerular Filtration Rate > 60, BUN/ Creatinine Ratio 21, Glucose Level 190H, Calcium Level 9.5, Phosphorus Level 2.6 , Magnesium Level 1.6L 11/25/17 07:41: Glucometer 94 11/25/17 10:48: Glucometer 152H 11/25/17 13:59: Glucometer 197H 11/25/17 18:46: Glucometer 196H 11/25/17 22:10: Glucometer 157H 11/26/17 00:56: Glucometer 189H 11/26/17 03:15: White Blood Count 4.7, Red Blood Count 3.45L, Hemoglobin 8.7L, Hematocrit 29L, Mean Corpuscular Volume 83, Mean Corpuscular Hemoglobin 25, Mean Corpuscular Hemoglobin Concent 30L, Red Cell Distribution Width 17.1H, Platelet Count 441H, Mean Platelet Volume 10.2, Neutrophils (%) (Auto) 67, Lymphocytes (%) (Auto) 19 , Monocytes (%) (Auto) 11, Eosinophils (%) (Auto) 3, Basophils (%) (Auto) 0, Neutrophils # (Auto) 3.1, Lymphocytes # (Auto) 0.9L, Monocytes # (Auto) 0.5, Eosinophils # (Auto) 0.1, Basophils # (Auto) 0.0, Sodium Level 141, Potassium Level 3.8, Chloride Level 103, Carbon Dioxide Level 29, Anion Gap 9, Blood Urea Nitrogen 10, Creatinine 0.86, Estimat Glomerular Filtration Rate > 60, BUN/ Creatinine Ratio 12, Glucose Level 159H, Calcium Level 9.6, Phosphorus Level 4.2 , Magnesium Level 1.4L, Total Bilirubin 0.1, Aspartate Amino Transf (AST/SGOT) 18, Alanine Aminotransferase (ALT/SGPT) 21, Alkaline Phosphatase 90, Total Protein 5.7L, Albumin 3.1L 11/26/17 05:01: Glucometer 123H 11/26/17 10:50: Glucometer 220H 11/26/17 16:18: Glucometer 179H 11/26/17 21:42: Glucometer 276H 11/27/17 05:51: Glucometer 121H 11/27/17 05:52: White Blood Count 4.5, Red Blood Count 3.28L, Hemoglobin 8.2L, Hematocrit 27L, Mean Corpuscular Volume 83, Mean Corpuscular Hemoglobin 25, Mean Corpuscular Hemoglobin Concent 30L, Red Cell Distribution Width 16.9H, Platelet Count 431H, Mean Platelet Volume 10.6H, Neutrophils (%) (Auto) 66, Lymphocytes (%) (Auto) 21 , Monocytes (%) (Auto) 12, Eosinophils (%) (Auto) 2, Basophils (%) (Auto) 0, Neutrophils # (Auto) 3.0, Lymphocytes # (Auto) 0.9L, Monocytes # (Auto) 0.5, Eosinophils # (Auto) 0.1, Basophils # (Auto) 0.0, Sodium Level 137, Potassium Level 4.0, Chloride Level 100, Carbon Dioxide Level 26, Anion Gap 11, Blood Urea Nitrogen 9, Creatinine 0.83, Estimat Glomerular Filtration Rate > 60, BUN/ Creatinine Ratio 11, Glucose Level 111H, Calcium Level 9.8, Phosphorus Level 5.2H, Magnesium Level 1.7L 11/27/17 11:01: Glucometer 192H Microbiology 11/23/17 Blood Culture - Preliminary, Resulted No growth 11/23/17 Urine Culture - Preliminary, Resulted Enterobacter aerogenes 11/23/17 Gram Stain - Final, Complete 11/23/17 Wound Culture - Final, Complete Streptococcus viridans Laboratory Tests 11/23/17 15:25 11/24/17 03:45 11/25/17 03:55 11/26/17 03:15 11/27/17 05:52 Pending Labs Microbiology Date/Time Source Procedure Growth Status 11/23/17 15:50 Peripheral Right Wrist Blood Culture - Preliminary No growth Resulted 11/23/17 15:25 Peripheral Lt Ac Blood Culture - Preliminary No growth Resulted 11/23/17 15:46 Urine Clean Catch Urine Culture - Preliminary Enterobacter aerogenes Resulted 11/23/17 15:30 Cyst/Abscess Leg, Left Gram Stain - Final Complete 11/23/17 15:30 Wound Culture - Final Streptococcus viridans Complete Laboratory Tests 11/23/17 15:25: White Blood Count 5.8, Red Blood Count 3.74, Hemoglobin 9.3, Hematocrit 32, Mean Corpuscular Volume 85, Mean Corpuscular Hemoglobin 25, Mean Corpuscular Hemoglobin Concent 29, Red Cell Distribution Width 16.5, Platelet Count 517, Mean Platelet Volume 9.9, Neutrophils (%) (Auto) 73, Lymphocytes (%) (Auto) 17, Monocytes (%) (Auto) 7, Eosinophils (%) (Auto) 2, Basophils (%) (Auto) 1, Neutrophils # (Auto) 4.2, Lymphocytes # (Auto) 1.0, Monocytes # (Auto) 0.4, Eosinophils # (Auto) 0.1, Basophils # (Auto) 0.0, Prothrombin Time 12.7, INR Comment 0.9, Activated Partial Thromboplast Time 30, Sodium Level 142, Potassium Level 4.3, Chloride Level 100, Carbon Dioxide Level 32, Anion Gap 10, Blood Urea Nitrogen 22, Creatinine 0.86, Estimat Glomerular Filtration Rate > 60 , BUN/Creatinine Ratio 26, Glucose Level 47, Lactic Acid Level 0.90, Calcium Level 9.9, Total Bilirubin 0.2, Aspartate Amino Transf (AST/SGOT) 17, Alanine Aminotransferase (ALT/SGPT) 24, Alkaline Phosphatase 91, C-Reactive Protein High Sensitivity 1.89, B-Type Natriuretic Peptide 66.1, Total Protein 6.3, Albumin 3.5 11/23/17 15:46: Urine Color YELLOW, Urine Clarity SLIGHTLY CLOUDY, Urine pH 7, Urine Specific [place] 1.010, Urine Protein NEGATIVE, Urine Glucose (UA) NEGATIVE, Urine Ketones NEGATIVE, Urine Nitrite POSITIVE, Urine Bilirubin NEGATIVE, Urine Urobilinogen NORMAL, Urine Leukocyte Esterase 2+, Urine RBC (Auto) NEGATIVE, Urine RBC NONE, Urine WBC 5-10, Urine Crystals NONE, Urine Bacteria FEW, Urine Casts NONE, Urine Mucus NEGATIVE, Urine Culture Indicated YES 11/23/17 16:20: Blood Gas Puncture Site LT RAD, Blood Gas Patient Temperature 98.9, Arterial Blood pH 7.28, Arterial Blood Partial Pressure CO2 73, Arterial Blood Partial Pressure O2 35, Arterial Blood HCO3 33, Arterial Blood Total CO2 35.3, Arterial Blood Oxygen Saturation 56, Arterial Blood Base Excess 6.5, [place] Test YES-POS, Blood Gas Ventilator Setting NO, Blood Gas Inspired Oxygen 3L 11/23/17 17:58: Glucometer 64 11/23/17 20:07: Glucometer 91 11/23/17 21:05: Glucometer 64 11/23/17 22:10: Glucometer 79 11/23/17 23:01: Glucometer 64 11/23/17 23:48: Blood Gas Puncture Site L RAD, Blood Gas Patient Temperature 98.7, Arterial Blood pH 7.31, Arterial Blood Partial Pressure CO2 66, Arterial Blood Partial Pressure O2 67, Arterial Blood HCO3 32, Arterial Blood Total CO2 34.1, Arterial Blood Oxygen Saturation 94, Arterial Blood Base Excess 6.1, [place] Test YES-POS, Blood Gas Ventilator Setting NO, Blood Gas Inspired Oxygen 35% BIPAP 11/24/17 00:08: Glucometer 63 11/24/17 01:03: Glucometer 164 11/24/17 02:14: Glucometer 121 11/24/17 03:05: Glucometer 115 11/24/17 03:45: White Blood Count 4.2, Red Blood Count 3.33, Hemoglobin 8.4, Hematocrit 28, Mean Corpuscular Volume 85, Mean Corpuscular Hemoglobin 25, Mean Corpuscular Hemoglobin Concent 30, Red Cell Distribution Width 16.7, Platelet Count 439, Mean Platelet Volume 9.8, Neutrophils (%) (Auto) 77, Lymphocytes (%) (Auto) 13, Monocytes (%) (Auto) 8, Eosinophils (%) (Auto) 2, Basophils (%) (Auto) 0, Neutrophils # (Auto) 3.3, Lymphocytes # (Auto) 0.5, Monocytes # (Auto) 0.3, Eosinophils # (Auto) 0.1, Basophils # (Auto) 0.0, Sodium Level 142, Potassium Level 3.4, Chloride Level 102, Carbon Dioxide Level 29, Anion Gap 11, Blood Urea Nitrogen 22, Creatinine 0.77, Estimat Glomerular Filtration Rate > 60, BUN/ Creatinine Ratio 29, Glucose Level 103, Calcium Level 9.1, Phosphorus Level 5.0 , Magnesium Level 1.4, Total Bilirubin 0.2, Aspartate Amino Transf (AST/SGOT) 18 , Alanine Aminotransferase (ALT/SGPT) 21, Alkaline Phosphatase 75, B-Type Natriuretic Peptide 58.7, Total Protein 5.4, Albumin 3.0 11/24/17 04:09: Glucometer 97 11/24/17 04:24: Blood Gas Puncture Site L RAD, Blood Gas Patient Temperature 97.9, Arterial Blood pH 7.30, Arterial Blood Partial Pressure CO2 66, Arterial Blood Partial Pressure O2 65, Arterial Blood HCO3 31, Arterial Blood Total CO2 33.3, Arterial Blood Oxygen Saturation 94, Arterial Blood Base Excess 5.1, [place] Test YES-POS, Blood Gas Ventilator Setting NO, Blood Gas Inspired Oxygen 35% BIPAP 11/24/17 05:50: Glucometer 88 11/24/17 07:43: Glucometer 116 11/24/17 08:54: Glucometer 116, Blood Gas Puncture Site L RAD, Blood Gas Patient Temperature 97.9, Arterial Blood pH 7.34, Arterial Blood Partial Pressure CO2 60, Arterial Blood Partial Pressure O2 63, Arterial Blood HCO3 32, Arterial Blood Total CO2 33.5, Arterial Blood Oxygen Saturation 93, Arterial Blood Base Excess 6.0, [place] Test POSITIVE, Blood Gas Ventilator Setting NO, Blood Gas Inspired Oxygen BIPAP 30% FIO2 11/24/17 10:40: Glucometer 107 11/24/17 11:39: Glucometer 107 11/24/17 14:24: Glucometer 151, Blood Gas Puncture Site L RADIAL, Blood Gas Patient Temperature 97.6, Arterial Blood pH 7.39, Arterial Blood Partial Pressure CO2 52, Arterial Blood Partial Pressure O2 51, Arterial Blood HCO3 31, Arterial Blood Total CO2 32.5, Arterial Blood Oxygen Saturation 89, Arterial Blood Base Excess 5.9, [place] Test POSITIVE, Blood Gas Ventilator Setting NO, Blood Gas Inspired Oxygen BIPAP 30% 11/24/17 15:59: Glucometer 177 11/24/17 18:29: Glucometer 203 11/24/17 20:54: Glucometer 189 11/25/17 00:21: Glucometer 175 11/25/17 03:10: Glucometer 187 11/25/17 03:30: Blood Gas Puncture Site R RAD, Blood Gas Patient Temperature 97.1, Arterial Blood pH 7.46, Arterial Blood Partial Pressure CO2 41, Arterial Blood Partial Pressure O2 51, Arterial Blood HCO3 29, Arterial Blood Total CO2 30.2, Arterial Blood Oxygen Saturation 92, Arterial Blood Base Excess 4.9, [place] Test YES-POS, Blood Gas Ventilator Setting NO, Blood Gas Inspired Oxygen 21% BIPAP 11/25/17 03:55: White Blood Count 4.7, Red Blood Count 3.51, Hemoglobin 8.8, Hematocrit 29, Mean Corpuscular Volume 83, Mean Corpuscular Hemoglobin 25, Mean Corpuscular Hemoglobin Concent 30, Red Cell Distribution Width 16.9, Platelet Count 400, Mean Platelet Volume 10.3, Neutrophils (%) (Auto) 76, Lymphocytes (%) (Auto) 15 , Monocytes (%) (Auto) 8, Eosinophils (%) (Auto) 2, Basophils (%) (Auto) 0, Neutrophils # (Auto) 3.5, Lymphocytes # (Auto) 0.7, Monocytes # (Auto) 0.4, Eosinophils # (Auto) 0.1, Basophils # (Auto) 0.0, Sodium Level 138, Potassium Level 4.1, Chloride Level 102, Carbon Dioxide Level 26, Anion Gap 10, Blood Urea Nitrogen 14, Creatinine 0.68, Estimat Glomerular Filtration Rate > 60, BUN/ Creatinine Ratio 21, Glucose Level 190, Calcium Level 9.5, Phosphorus Level 2.6 , Magnesium Level 1.6 11/25/17 07:41: Glucometer 94 11/25/17 10:48: Glucometer 152 11/25/17 13:59: Glucometer 197 11/25/17 18:46: Glucometer 196 11/25/17 22:10: Glucometer 157 11/26/17 00:56: Glucometer 189 11/26/17 03:15: White Blood Count 4.7, Red Blood Count 3.45, Hemoglobin 8.7, Hematocrit 29, Mean Corpuscular Volume 83, Mean Corpuscular Hemoglobin 25, Mean Corpuscular Hemoglobin Concent 30, Red Cell Distribution Width 17.1, Platelet Count 441, Mean Platelet Volume 10.2, Neutrophils (%) (Auto) 67, Lymphocytes (%) (Auto) 19 , Monocytes (%) (Auto) 11, Eosinophils (%) (Auto) 3, Basophils (%) (Auto) 0, Neutrophils # (Auto) 3.1, Lymphocytes # (Auto) 0.9, Monocytes # (Auto) 0.5, Eosinophils # (Auto) 0.1, Basophils # (Auto) 0.0, Sodium Level 141, Potassium Level 3.8, Chloride Level 103, Carbon Dioxide Level 29, Anion Gap 9, Blood Urea Nitrogen 10, Creatinine 0.86, Estimat Glomerular Filtration Rate > 60, BUN/ Creatinine Ratio 12, Glucose Level 159, Calcium Level 9.6, Phosphorus Level 4.2 , Magnesium Level 1.4, Total Bilirubin 0.1, Aspartate Amino Transf (AST/SGOT) 18 , Alanine Aminotransferase (ALT/SGPT) 21, Alkaline Phosphatase 90, Total Protein 5.7, Albumin 3.1 11/26/17 05:01: Glucometer 123 11/26/17 10:50: Glucometer 220 11/26/17 16:18: Glucometer 179 11/26/17 21:42: Glucometer 276 11/27/17 05:51: Glucometer 121 11/27/17 05:52: White Blood Count 4.5, Red Blood Count 3.28, Hemoglobin 8.2, Hematocrit 27, Mean Corpuscular Volume 83, Mean Corpuscular Hemoglobin 25, Mean Corpuscular Hemoglobin Concent 30, Red Cell Distribution Width 16.9, Platelet Count 431, Mean Platelet Volume 10.6, Neutrophils (%) (Auto) 66, Lymphocytes (%) (Auto) 21 , Monocytes (%) (Auto) 12, Eosinophils (%) (Auto) 2, Basophils (%) (Auto) 0, Neutrophils # (Auto) 3.0, Lymphocytes # (Auto) 0.9, Monocytes # (Auto) 0.5, Eosinophils # (Auto) 0.1, Basophils # (Auto) 0.0, Sodium Level 137, Potassium Level 4.0, Chloride Level 100, Carbon Dioxide Level 26, Anion Gap 11, Blood Urea Nitrogen 9, Creatinine 0.83, Estimat Glomerular Filtration Rate > 60, BUN/ Creatinine Ratio 11, Glucose Level 111, Calcium Level 9.8, Phosphorus Level 5.2 , Magnesium Level 1.7 11/27/17 11:01: Glucometer 192 Discharge Home Medications: Active Scripts Active Haloperidol 2 Mg Tablet 4 Mg PO TID MDD 12 30 Days Reported Aspirin EC (Aspirin) 325 Mg Tablet.dr 325 Mg PO BID STOP DATE 12-17-17 Tylenol (Acetaminophen) 325 Mg Tablet 650 Mg PO Q4H PRN Xanax (Alprazolam) 0.25 Mg Tablet 0.25 Mg PO BID PRN Zyprexa (Olanzapine) 2.5 Mg Tablet 2.5 Mg PO HS STOP DATE 11-28-17 Albuterol Sulfate 2.5 Mg/3 Ml Vial.neb 2.5 Mg NEB QID Breo Ellipta 100-25 Mcg INH (Fluticasone/Vilanterol) 1 Each Blst.w.dev 1 Puff IH DAILY Zofran Odt (Ondansetron) 4 Mg Tab.rapdis 4 Mg SL Q6H PRN Ventolin Hfa (Albuterol Sulfate) 1 Puff Puff 1 Puff IH Q4H PRN 1 PUFF = 90 MCG Mirapex (Pramipexole Di-HCl) 1 Mg Tablet 1 Mg PO HS Nasal Decongestant (Oxymetazoline HCl) 30 Ml [place] 2 [place] NS Q4H PRN Tylenol Pm Ex-Strength Caplet (Acetaminophen/Diphenhydramine) 1 Each Tablet 2 Tab PO HS Albuterol Sulfate 2.5 Mg/3 Ml Vial.neb 2.5 Mg NEB Q4H PRN Levemir Flextouch (Insulin Detemir) 100 Unit/1 Ml Insuln.pen 15 Unit SQ 1100 Centrum Silver Tablet (Multivit-Min/FA/Lycopene/Lut) 1 Each Tablet 1 Tab PO DAILY Metformin HCl 500 Mg Tablet 1,000 Mg PO BID TAKES 2 (500MG) TABLETS Sertraline HCl 50 Mg Tablet 50 Mg PO HS Amlodipine Besylate 10 Mg Tablet 10 Mg PO DAILY Naproxen 500 Mg Tablet 500 Mg PO BID Furosemide 40 Mg Tablet 40 Mg PO DAILY Hydrocodon-Acetaminophn 10-325 (Hydrocodone/Acetaminophen) 1 Each Tablet 1 Tab PO Q6H PRN Glimepiride 4 Mg Tablet 4 Mg PO BID Spiriva Respimat 2.5MCG/ACTUATION (Tiotropium [place]) 4 Gm Mist.inhal 2 Puff IH DAILY Potassium Chloride 10 Meq Capsule.er 10 Meq PO HS Gabapentin 300 Mg Capsule 300 Mg PO BID Atorvastatin Calcium 10 Mg Tablet 10 Mg PO HS Instructions to patient/family Please see electronic discharge instructions given to patient. Clinical Quality Measures DVT/VTE Risk/Contraindication: Risk Factor Score Per Nursin RFS Level Per Nursing on Admit: 2=Moderate Contraindications-Mechi: Other *list below* RADHA HAYES DO Nov 28, 2017 06:33
== END 2017-11-27 14:30 | DRG 189 ==
LOC: EDUNIT# 15:21 → ER 15:22 → ICU 18:03 → 4TH 11-26 05:10
PROVIDERS: ADMIT Internal Medicine; ATTEND Internal Medicine
DX: J96.21 Acute and chronic respiratory failure with hypoxia (principal); J96.22 Acute and chronic respiratory failure with hypercapnia; J43.9 Emphysema, unspecified; N39.0 Urinary tract infection, site not specified; R41.82 Altered mental status, unspecified; F23 Brief psychotic disorder; E11.649 Type 2 diabetes mellitus with hypoglycemia without coma; E11.40 Type 2 diabetes mellitus with diabetic neuropathy, unspecified; S80.822A Blister (nonthermal), left lower leg, initial encounter; S00.83XA Contusion of other part of head, initial encounter; S82.899D Other fracture of unspecified lower leg, subsequent encounter for closed fracture with routine healing; R29.6 Repeated falls; M54.5 Low back pain; I10 Essential (primary) hypertension; F17.290 Nicotine dependence, other tobacco product, uncomplicated; F41.9 Anxiety disorder, unspecified; F32.9 Major depressive disorder, single episode, unspecified; K21.9 Gastro-esophageal reflux disease without esophagitis; K59.09 Other constipation; M19.91 Primary osteoarthritis, unspecified site; K57.90 Diverticulosis of intestine, part unspecified, without perforation or abscess without bleeding; K44.9 Diaphragmatic hernia without obstruction or gangrene; R60.0 Localized edema; G47.9 Sleep disorder, unspecified; W19.XXXA Unspecified fall, initial encounter; Y92.129 Unspecified place in nursing home as the place of occurrence of the external cause; Z79.4 Long term (current) use of insulin; Z91.19 Patient's noncompliance with other medical treatment and regimen; Z96.641 Presence of right artificial hip joint; Z86.010 Personal history of colon polyps
CPT/HCPCS: 36415; 51702; 70450; 71045; 72125; 72131; 73610; 80048; 80053; 81000; 82805; 82962; 83605; 83735; 83880; 84100; 85025; 85610; 85730; 86141; 87040; 87070; 87077; 87088; 87186; 87205; 93005; 94640; 94660; 94760; 96365; 96366; 96375; 96376

== ENCOUNTER 2017-12-02 21:42 | Emergency (ER) | payer MEDICARE ==
[~2017-12-02] VITALS: Ht 170.2 cm; Wt 93.2 kg
[~2017-12-02 21:42] MED LIST changes: +ACET325T38 PO; +ALPR0.25 PO; +ASPI325T32 PO; +FLUT1AER IH; +HALO2TAB PO; +OLAN2.5T3 PO; +ONDA4TAB8 SL
[2017-12-02] MEDS ORDERED: RT-ALBUTEROL SULF 2.5 MG/3 ML PRE-MIX VIAL ONE (21:55)
[2017-12-02] MEDS ORDERED: RT-ALBUTEROL SULF 2.5 MG/3 ML PRE-MIX VIAL INH STA (21:57)
--- NOTE | 2017-12-02 22:05 | ED Respiratory ---
General Chief Complaint: Respiratory Problems Stated Complaint: SOB Nursing Triage Note: soa x90 min Source: patient, EMS Exam Limitations: no limitations History of Present Illness Date Seen by Provider: Dec 02, 2017 Time Seen by Provider: 21:44 Initial Comments The patient presents to the ER by EMS with a chief complaint that she is coming from home with shortness of breath. EMS reports that her lung bases were diminished and she is having some wheezing so I gave her a DuoNeb on route which didn't help. The patient says she took an albuterol inhaler about 30 minutes prior to calling EMS because it did not help. The patient says she just got discharged from rehabilitation at via [facility] where she was doing physical therapy for her recent right ankle fracture. She also has a wound on the front of her left farias that they've been dressing with a dressing and she says is gotten a little bit more red and swollen/edematous. She says she is not having any more pain than usual. She got scared because she got short of breath after getting home. 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 She is not sure if she was started on any antibiotics prior to leaving. She is coughing with her usual production of phlegm. She has no nausea, chest pain, abdominal pain, dysuria. Chest x-ray from 6 days ago does reports as no infiltrate or acute cardiopulmonary process. The patient has a history of COPD and still vaporizers but does not smoke cigarettes. She has been noted to be noncompliant with home BiPAP just wearing her home O2. Allergies and Home Medications Allergies Coded Allergies: enalapril (Verified Allergy, Severe, ANAPHYLAXIS, 08/22/13) Home Medications Acetaminophen 325 Mg Tablet, 650 MG PO Q4H PRN for PAIN-MILD, (Reported) Acetaminophen/Diphenhydramine 1 Each Tablet, 2 TAB PO HS, (Reported) Albuterol Sulfate 2.5 Mg/3 Ml Vial.neb, 2.5 MG NEB Q4H PRN for SHORTNESS OF BREATH, (Reported) Albuterol Sulfate 1 Puff Puff, 1 PUFF IH Q4H PRN for SHORTNESS OF BREATH, ( Reported) 1 PUFF = 90 MCG Albuterol Sulfate 2.5 Mg/3 Ml Vial.neb, 2.5 MG NEB QID, (Reported) Alprazolam 0.25 Mg Tablet, 0.25 MG PO BID PRN for ANXIETY, (Reported) Amlodipine Besylate 10 Mg Tablet, 10 MG PO DAILY, (Reported) Aspirin 325 Mg Tablet.dr, 325 MG PO BID, (Reported) STOP DATE 12-17-17 Atorvastatin Calcium 10 Mg Tablet, 10 MG PO HS, (Reported) Fluticasone/Vilanterol 1 Each Blst.w.dev, 1 PUFF IH DAILY, (Reported) Furosemide 40 Mg Tablet, 40 MG PO DAILY, (Reported) Gabapentin 300 Mg Capsule, 300 MG PO BID, (Reported) Glimepiride 4 Mg Tablet, 4 MG PO BID, (Reported) Haloperidol 2 Mg Tablet, 4 MG PO TID Prescribed by: RADHA HAYES on 11/27/17 1053 Hydrocodone/Acetaminophen 1 Each Tablet, 1 TAB PO Q6H PRN for PAIN-MODERATE, ( Reported) Insulin Detemir 100 Unit/1 Ml Insuln.pen, 15 UNIT SQ 1100, (Reported) Metformin HCl 500 Mg Tablet, 1,000 MG PO BID, (Reported) TAKES 2 (500MG) TABLETS Multivit-Min/FA/Lycopene/Lut 1 Each Tablet, 1 TAB PO DAILY, (Reported) Naproxen 500 Mg Tablet, 500 MG PO BID, (Reported) Olanzapine 2.5 Mg Tablet, 2.5 MG PO HS, (Reported) STOP DATE 11-28-17 Ondansetron 4 Mg Tab.rapdis, 4 MG SL Q6H PRN for NAUSEA/VOMITING-1ST LINE, ( Reported) Oxymetazoline HCl 30 Ml Wittmann, 2 SPRAY NS Q4H PRN for CONGESTION, (Reported) Potassium Chloride 10 Meq Capsule.er, 10 MEQ PO HS, (Reported) Pramipexole Di-HCl 1 Mg Tablet, 1 MG PO HS, (Reported) Sertraline HCl 50 Mg Tablet, 50 MG PO HS, (Reported) Tiotropium Bond[place] 4 Gm Mist.inhal, 2 PUFF IH DAILY, (Reported) Patient Home Medication List Home Medication List Reviewed: Yes Review of Systems Constitutional: No chills, No fever, No malaise, No weakness EENTM: No ear pain, No eye pain Respiratory: cough, orthopnea, phlegm, short of breath, No stridor, wheezing Cardiovascular: No chest pain, edema, No palpitations, No syncope Gastrointestinal: No abdominal pain, No constipation, No diarrhea, No nausea, No vomiting Genitourinary: No discharge, No dysuria Musculoskeletal: No back pain, No joint pain Skin: No pruritus, No rash, other (dressed wound, blisters on the left anterior farias) Past Ippxpdz-Kunhmr-Mwdnch Hx Patient Social History Alcohol Use: Denies Use Recreational Drug Use: No Smoking Status: Former Smoker Type Used: Electronic/Vapor Former Smoker, Quit: Aug 25, 2012 2nd Hand Smoke Exposure: Yes Recent Foreign Travel: No Contact w/Someone Who Travel: No Recent Infectious Disease Expo: No Recent Hopitalizations: Yes (dc'd 12/02/17) Immunizations Up To Date Tetanus Booster (TDap): Less than 5yrs PED Vaccines UTD: No Date of Pneumonia Vaccine: May 21, 2013 Date of Influenza Vaccine: May 25, 2017 Seasonal Allergies Seasonal Allergies: No Past Medical History Surgeries: Yes (TOTAL right hip, carpul tunnel bilat, LEFT KNEE SX, RIGHT ANKLE ) Gallbladder, Joint Replacement, Orthopedic Respiratory: Yes Asthma, Pneumonia, Chronic Bronchitis, COPD, Emphysema Currently Using CPAP: No Currently Using BIPAP: No Cardiac: Yes Chronic Edema/Swelling, Hypertension Neurological: Yes Neuropathy : No 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 Disorders: No Female 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 Disorders: Denies 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 Sexually Transmitted Disease: No HIV/AIDS: No Genitourinary: No Gastrointestinal: Yes Gastroesophageal Reflux, Chronic Constipation, Diverticulosis, Hemorrhoids, Polyps, Hiatal Hernia, Gall Bladder Disease Musculoskeletal: Yes Degenerate Disk Disease, Arthritis, Chronic Back Pain Endocrine: Yes Diabetes, Insulin dep HEENT: No Cataract Loss of Vision: Denies Hearing Impairment: Denies Cancer: No Psychosocial: Yes Sleep Difficulties, Anxiety, Depression Integumentary: No Blood Disorders: No Adverse Reaction/Blood Tranf: No Family Medical History Completed stroke 09 BROTHER Family history: Asthma 03 MOTHER History of - respiratory disease 03 FATHER (PNEUMONIA) 03 MOTHER (ASTHMA, COPD) Heart Disease, COPD, Hypertension, Lung Disease Physical Exam Vital Signs Vital Signs - First Documented 12/02/17 12/02/17 21:46 22:01 Temp 95.8 Pulse 88 Resp 18 B/P (MAP) 144/79 (100) Pulse Ox 100 O2 Delivery Nasal Cannula O2 Flow Rate 4.00 Capillary Refill : Less Than 3 Seconds General Appearance: WD/WN, mild distress Eyes: Bilateral Eye Normal Inspection, Bilateral Eye PERRL, Bilateral Eye EOMI HEENT: PERRL/EOMI, normal ENT inspection, TMs normal, pharynx normal Neck: non-tender, supple, normal inspection Respiratory: chest non-tender, respiratory distress (mild), decreased breath sounds, accessory muscle use (mild), No crackles, wheezing, expiration Cardiovascular: normal peripheral pulses, regular rate, rhythm Gastrointestinal: normal bowel sounds, non tender, soft Extremities: normal capillary refill, pedal edema (1+ pitting edema bilateral lower extremities with some faint erythema around the wound on the left anterior farias. Small amount of drainage on the dressing. Mucopurulent.) Neurologic/Psychiatric: alert, normal mood/affect, oriented x 3 Skin: other (erythematous left calf) Procedures/Interventions Date of ETT Placement: Nov 01, 2017 Time of ETT Placement: 0704 Progress/Results/Core Measures Suspected Sepsis Recent Fever Within 48 Hours: No Infection Criteria Present: None New/Unexplained Altered Menta: No Sepsis Screen: No Definite Risk Sepsis Diagnosis: SIRS Temperature:95.8 Pulse: 88 Respiratory Rate: 18 Laboratory Tests 12/02/17 21:45: White Blood Count 5.0 Blood Pressure 144 /79 Mean: 100 Laboratory Tests 12/02/17 21:45: Platelet Count 382 12/02/17 22:21: Creatinine 0.72, Total Bilirubin 0.3 Results/Orders Lab Results Laboratory Tests Test 12/02/17 21:45 12/02/17 22:15 12/02/17 22:21 Range/Units White Blood Count 5.0 4.3-11.0 10^3/uL Red Blood Count 3.58 L 4.35-5.85 10^6/uL Hemoglobin 9.3 L 11.5-16.0 G/DL Hematocrit 29 L 35-52 % Mean Corpuscular Volume 82 80-99 FL Mean Corpuscular Hemoglobin 26 25-34 PG Mean Corpuscular Hemoglobin Concent 32 32-36 G/DL Red Cell Distribution Width 17.4 H 10.0-14.5 % Platelet Count 382 130-400 10^3/uL Mean Platelet Volume 10.5 H 7.4-10.4 FL Neutrophils (%) (Auto) 68 42-75 % Lymphocytes (%) (Auto) 21 12-44 % Monocytes (%) (Auto) 9 0-12 % Eosinophils (%) (Auto) 2 0-10 % Basophils (%) (Auto) 1 0-10 % Neutrophils # (Auto) 3.4 1.8-7.8 X 10^3 Lymphocytes # (Auto) 1.1 1.0-4.0 X 10^3 Monocytes # (Auto) 0.4 0.0-1.0 X 10^3 Eosinophils # (Auto) 0.1 0.0-0.3 10^3/uL Basophils # (Auto) 0.0 0.0-0.1 10^3/uL B-Type Natriuretic Peptide 45.6 <100.0 PG/ML Blood Gas Puncture Site RT RAD Blood Gas Patient Temperature 99.0 Arterial Blood pH 7.39 7.37-7.43 Arterial Blood Partial Pressure CO2 55 H 35-45 MMHG Arterial Blood Partial Pressure O2 75 L 79-93 MMHG Arterial Blood HCO3 32 H 23-27 MMOL/L Arterial Blood Total CO2 34.0 H 21.0-31.0 MMOL/L Arterial Blood Oxygen Saturation 95 94-100 % Arterial Blood Base Excess 7.4 H -2.5-2.5 MMOL/L Barrington Test YES-POS Blood Gas Ventilator Setting NO Blood Gas Inspired Oxygen 4L D-Dimer 3.72 H 0.00-0.49 UG/ML Sodium Level 139 135-145 MMOL/L Potassium Level 4.1 3.6-5.0 MMOL/L Chloride Level 97 L 98-107 MMOL/L Carbon Dioxide Level 29 21-32 MMOL/L Anion Gap 13 5-14 MMOL/L Blood Urea Nitrogen 8 7-18 MG/DL Creatinine 0.72 0.60-1.30 MG/DL Estimat Glomerular Filtration Rate > 60 BUN/Creatinine Ratio 11 Glucose Level 171 H 70-105 MG/DL Calcium Level 9.6 8.5-10.1 MG/DL Magnesium Level 1.7 L 1.8-2.4 MG/DL Total Bilirubin 0.3 0.1-1.0 MG/DL Aspartate Amino Transf (AST/SGOT) 18 5-34 U/L Alanine Aminotransferase (ALT/SGPT) 18 0-55 U/L Alkaline Phosphatase 95 40-136 U/L C-Reactive Protein High Sensitivity 1.74 H 0.00-0.50 MG/DL Total Protein 6.5 6.4-8.2 GM/DL Albumin 3.6 3.2-4.5 GM/DL My Orders Orders - IMAN PARSONS Arterial Blood Gas (12/02/17 21:57) BNP (12/02/17 21:57) Cbc With Automated Diff (12/02/17 21:57) Comprehensive Metabolic Panel (12/02/17 21:57) Hs C Reactive Protein (12/02/17 21:57) Fibrin Degradation Products (12/02/17 21:57) Magnesium (12/02/17 21:57) Chest Pa/Lat (2 View) (12/02/17 21:57) Albuterol Pre-Mix Nebs (Rt) (Proventil (12/02/17 21:57) Albuterol Pre-Mix Nebs (Rt) (Proventil (12/02/17 21:55) Ct Angio Chest W (12/02/17 22:44) Acetaminophen Tablet (Tylenol Tablet) (12/02/17 23:00) Magnesium 1 Gm/100 Ml Ivpb (Magnesium Metcalf (12/02/17 23:15) Ns Iv 1000 Ml (Sodium Chloride 0.9%) (12/02/17 23:15) Iohexol Injection (Omnipaque 350 Mg/Ml 1 (12/02/17 23:15) Ns (Ivpb) (Sodium Chloride 0.9%) (12/02/17 23:15) Methylprednisolone Sod Succ (Solu-Medrol (12/02/17 23:30) Medications Given in ED Current Medications Medications Dose Ordered Sig/Fabienne Route Start Time Stop Time Status Last Admin Dose Admin Acetaminophen 1,000 mg ONCE ONCE PO 12/02/17 23:00 12/02/17 23:01 DC 12/02/17 22:59 1,000 MG Albuterol Sulfate 2.5 mg STK-MED ONCE .ROUTE 12/02/17 21:55 12/02/17 21:59 DC 12/02/17 22:00 5 MG Iohexol 150 ml ONCE ONCE IV 12/02/17 23:15 12/02/17 23:16 DC 12/02/17 23:15 125 ML Magnesium Sulfate/ Dextrose 100 ml @ 100 mls/hr ONCE ONCE IV 12/02/17 23:15 12/03/17 00:14 12/02/17 23:17 100 MLS/HR Sodium Chloride 80 ml ONCE ONCE IV 12/02/17 23:15 12/02/17 23:16 DC 12/02/17 23:15 80 ML Sodium Chloride 1,000 ml ONCE ONCE IV 12/02/17 23:15 12/02/17 23:16 DC 12/02/17 23:17 1,000 ML Vital Signs/I&O 12/02/17 12/02/17 12/02/17 21:46 22:01 22:59 Temp 95.8 95.8 Pulse 88 Resp 18 B/P (MAP) 144/79 (100) Pulse Ox 100 98 O2 Delivery Nasal Cannula Nasal Cannula O2 Flow Rate 4.00 Capillary Refill : Less Than 3 Seconds Blood Pressure Mean: 100 Progress Note #1: Time: 22:05 Progress Note Echocardiogram from September [address] Davey Cavity size is normal wall thickness mildly increased left ventricle with concentric hypertrophy. Systolic function is hyperdynamic with an EF of 65-70%. Grade 1 diastolic dysfunction. Dilated atrium with mild mitral valve regurgitation. We'll give her some albuterol get a chest x-ray. Sure what antibiotic she was started on and if it was pneumonia or COPD exacerbation they were treating. No evidence that she's been started on steroids. We will also get a d-dimer to help differentiate the erythematous left calf. If elevated we'll go ahead and get a CT angiogram of the chest given her recent respiratory decompensation. However she sounds much better after a DuoNeb from the EMS. We'll give her 5 more milligrams of albuterol and reevaluate. We'll also check a BNP. DVT versus cellulitis versus acute decompensated congestive heart failure versus COPD exacerbation versus pneumonia versus bronchitis. We'll obtain an ABG to see what her CO2 status is. She is not acting like she is having any fracture of CO2 narcosis, confusion, etc. We will hold off giving her any IV fluids to see a BNP as she is having quite a bit of edema and she mastectomy diuretics. Progress Note #2: Time: 22:35 Progress Note The patient's breathing is significantly improved after the albuterol and DuoNeb treatments. She is not in any acute distress right now. She does not require BiPAP or Vapotherm and her ABG reveals a CO2 of 55 which is, according to her history and her clinical exam, unremarkable. Her hemoglobin is improved she has no elevation of her white cells. Diagnostic Imaging Diagonstic Imaging: Xray Plain Films/CT/US/NM/MRI: chest (2v) Comments No acute cardiopulmonary processes noted. COPD. Reviewed: Reviewed by Me Diagonstic Imaging: CT (angiogram) Plain Films/CT/US/NM/MRI: chest Comments No pulmonary embolism or infiltrates. COPD. Reviewed: Reviewed by Me Departure Impression Primary Impression: COPD with acute exacerbation Disposition: HOME, SELF-CARE Condition: Improved Departure-Patient Inst. Decision time for Depature: 23:28 Referrals: RADHA HAYSE DO (PCP/Family) Primary Care Physician Patient Instructions: COPD Including Emphysema (DC) Add. 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 Return to care if you begin to experience severe shortening of breath not treated by using your albuterol or DuoNeb inhalers. All discharge instructions reviewed with patient and/or family. Voiced understanding. Copy Copies To 1: RADHA HAYES TITUS J Dec 02, 2017 22:05
[2017-12-02 22:14] LABS: BASOPHILS % (AUTO) 1 % (0-10); EOSINOPHILS # (AUTO) 0.1 10^3/uL (0.0-0.3); EOSINOPHILS % (AUTO) 2 % (0-10); HEMATOCRIT 29 % (35-52); HEMOGLOBIN 9.3 G/DL (11.5-16.0); LYMPHOCYTES # (AUTO) 1.1 X 10^3 (1.0-4.0); LYMPHOCYTES % (AUTO) 21 % (12-44); MEAN CORPUSCULAR HEMOGLOBIN 26 PG (25-34); MEAN CORPUSCULAR HGB CONC 32 G/DL (32-36); MEAN CORPUSCULAR VOLUME 82 FL (80-99); MEAN PLATELET VOLUME 10.5 FL (7.4-10.4); MONOCYTES # (AUTO) 0.4 X 10^3 (0.0-1.0); MONOCYTES % (AUTO) 9 % (0-12); NEUTROPHILS # (AUTO) 3.4 X 10^3 (1.8-7.8); NEUTROPHILS % (AUTO) 68 % (42-75); PLATELET COUNT 382 10^3/uL (130-400); RED BLOOD COUNT 3.58 10^6/uL (4.35-5.85); RED CELL DISTRIBUTION WIDTH 17.4 % (10.0-14.5)
[2017-12-02 22:25] LABS: ABG BASE EXCESS 7.4 MMOL/L (-2.5-2.5); ABG OXYGEN SATURATION 95 % (94-100); ABG PCO2 55 MMHG (35-45); ABG PH 7.39 (7.37-7.43); ABG PO2 75 MMHG (79-93)
[2017-12-02 22:26] LABS: ALLENS TEST YES-POS; INSPIRED O2 4L; VENTILATOR NO
[2017-12-02 22:47] LABS: ALANINE AMINOTRANSFERASE 18 U/L (0-55); ALBUMIN 3.6 GM/DL (3.2-4.5); ALKALINE PHOSPHATASE 95 U/L (40-136); BILIRUBIN,TOTAL 0.3 MG/DL (0.1-1.0); BUN/CREATININE RATIO 11; CALCIUM 9.6 MG/DL (8.5-10.1); CARBON DIOXIDE 29 MMOL/L (21-32); CHLORIDE 97 MMOL/L (98-107); CREATININE SERUM 0.72 MG/DL (0.60-1.30); GFR ESTIMATED > 60; GLUCOSE 171 MG/DL (70-105); MAGNESIUM 1.7 MG/DL (1.8-2.4); POTASSIUM 4.1 MMOL/L (3.6-5.0); SODIUM 139 MMOL/L (135-145); TOTAL PROTEIN 6.5 GM/DL (6.4-8.2)
[2017-12-02] MEDS ORDERED: ACETAMINOPHEN 500 MG TAB (TYLENOL) PO ONE (23:00)
[2017-12-02] MEDS ORDERED: NS 250 ML (IVPB) BAG IV ONE (23:15)
[2017-12-02] MEDS ORDERED: IOHEXOL 350 MG/ML 150 ML (OMNIPAQUE 350) VIAL IV ONE (23:15)
[2017-12-02] MEDS ORDERED: NS 1000 ML IV BAG IV ONE (23:15)
[2017-12-02] MEDS ORDERED: MAGNESIUM 1 GM/100 ML IVPB 100 ML IV ONE (23:15)
[2017-12-02] MEDS ORDERED: methylPREDNISolone 125 MG (Solu-MEDROL) VIAL ONE (23:25)
[2017-12-02] MEDS ORDERED: PRD20T PO (23:29)
[2017-12-02] MEDS ORDERED: methylPREDNISolone 125 MG (Solu-MEDROL) VIAL IVP ONE (23:30)
[2017-12-02 23:34] VITALS: BP 109/92
--- NOTE | 2017-12-03 06:45 | Diagnostic Imaging Report ---
PROCEDURE: CT angiography of the chest with contrast. TECHNIQUE: Multiple contiguous axial images were obtained through the chest after uneventful bolus administration of intravenous contrast. Reconstructed CTA MIP acquisitions were also performed. INDICATION: Shortness of air COMPARISON: Chest x-ray from the same day. FINDINGS: The pulmonary arteries are diagnostic to the segmental level, however there is marked motion artifact particularly in the lung bases, which limits evaluation. No intraluminal filling defect is seen to indicate embolus. The main pulmonary artery is enlarged, measuring 4 cm in diameter. There is calcific atherosclerosis. No acute aortic abnormality is seen. The heart is mildly large in size. No pericardial effusion is seen. There is motion artifact in the lung bases. No pleural effusion is seen. Mild emphysematous changes are seen in the lung apices. There is no pneumothorax. No central endobronchial lesions are seen. No acute osseous abnormality is seen. Multilevel degenerative changes are seen throughout the spine with no acute osseous abnormality seen. There appears to be mild wall thickening about the duodenum proximally. No free air is seen in the upper abdomen. IMPRESSION: 1. No pulmonary embolus seen, although there is marked motion artifact at the lung bases. 2. No acute thoracic abnormality is seen. 3. Enlargement of the main pulmonary artery, can be seen in the setting of pulmonary hypertension. 4. Mild wall thickening about the proximal duodenum, may be due to duodenitis, please correlate with clinical findings. Dictated by: Dictated on workstation # [id number]
--- NOTE | 2017-12-03 07:03 | Diagnostic Imaging Report ---
PATIENT HISTORY: Shortness of breath. TECHNIQUE: 2 views of the chest COMPARISON: 11/26/2017 FINDINGS: Lung volumes are mildly prominent. There is minimal opacity in the left lung base, which is nonspecific. No pleural effusion or pneumothorax is seen. There is mild cardiomegaly. The pulmonary vasculature appears mildly prominent. No acute osseous abnormality seen. There is a chronic compression deformity in the lower thoracic spine. IMPRESSION: 1. Minimal opacities in the left lung base, may represent atelectasis. 2. Mild cardiomegaly with prominent pulmonary vasculature, can be seen with pulmonary hypertension. Dictated by: Dictated on workstation # [id number]
== END 2017-12-02 23:34 | disposition home or self-care (01) ==
LOC: EDUNIT# 21:42 → ER 21:43
DX: J44.1 Chronic obstructive pulmonary disease with (acute) exacerbation (principal); I10 Essential (primary) hypertension; K21.9 Gastro-esophageal reflux disease without esophagitis; E11.40 Type 2 diabetes mellitus with diabetic neuropathy, unspecified; F41.9 Anxiety disorder, unspecified; F32.9 Major depressive disorder, single episode, unspecified; Z82.49 Family history of ischemic heart disease and other diseases of the circulatory system; Z86.010 Personal history of colon polyps; Z87.19 Personal history of other diseases of the digestive system; Z88.8 Allergy status to other drugs, medicaments and biological substances; Z79.82 Long term (current) use of aspirin; Z79.84 Long term (current) use of oral hypoglycemic drugs; Z87.891 Personal history of nicotine dependence; Z96.641 Presence of right artificial hip joint; Z87.01 Personal history of pneumonia (recurrent); Z79.51 Long term (current) use of inhaled steroids
CPT/HCPCS: 36415; 36600; 71046; 71275; 80053; 82805; 83735; 83880; 85025; 85379; 86141; 94640; 96374; 96375

== ENCOUNTER → 2018-03-12 | Outpatient (CLI) | payer MEDICARE ==
[~2018-03-12] MED LIST changes: -METF500T4 PO; +METF500T5 PO
--- NOTE | 2018-03-12 13:50 | Diagnostic Imaging Report ---
INDICATION: Right shoulder pain. AP, oblique, and lateral views of the right shoulder are obtained. No fracture or dislocation is seen. There is no acute bony abnormality. There is advanced degenerative change of the glenohumeral joint with severe joint space narrowing, osteophyte formation and subchondral sclerosis. AC joint appears relatively unremarkable. 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 AC joint is relatively unremarkable. There is no acute fracture or dislocation. Dictated by: Dictated on workstation # [id number]
== END ==
LOC: RAD 10:10
PROVIDERS: ATTEND Family Medicine
DX: M19.011 Primary osteoarthritis, right shoulder (principal)
CPT/HCPCS: 73030

== ENCOUNTER → 2018-04-29 | Outpatient (CLI) | payer MEDICARE ==
[~2018-04-29] MED LIST changes: -AMLO10TA2 PO; +AMLO10TA6 PO; +METF-397 PO; -METF500T5 PO; +RT-ALBUTEROL SULF 2.5 MG/3 ML PRE-MIX VIAL INH ONE
[2018-04-29 15:34] LABS: ABG BASE EXCESS 11.1 MMOL/L (-2.5-2.5); ABG OXYGEN SATURATION 97 % (94-100); ABG PCO2 56 MMHG (35-45); ABG PH 7.42 (7.37-7.43); ABG PO2 76 MMHG (79-93); ABG TCO2 38.2 MMOL/L (21.0-31.0)
[2018-04-29 15:35] LABS: ALLENS TEST POSITIVE; INSPIRED O2 4 L; PATIENT TEMP 95.6; VENTILATOR NO
== END ==
LOC: RT 14:49
PROVIDERS: ATTEND Nurse Practitioner Family
DX: J44.9 Chronic obstructive pulmonary disease, unspecified (principal)
CPT/HCPCS: 82805; 94060; 94726; 94729

== ENCOUNTER 2018-06-26 20:25 | Inpatient (IN) | payer MEDICARE ==
[~2018-06-26] VITALS: Ht 175.3 cm; Wt 99.9 kg
[~2018-06-26 20:25] MED LIST changes: -RT-ALBUTEROL SULF 2.5 MG/3 ML PRE-MIX VIAL INH ONE
[2018-06-26] MEDS ORDERED: NS IV 1000 ML 1,000 ML IV SCH (20:33)
[2018-06-26] MEDS ORDERED: RT-ALBUTEROL SULF 2.5 MG/3 ML PRE-MIX VIAL INH STA (20:33)
--- NOTE | 2018-06-26 20:42 | ED Respiratory ---
General Stated Complaint: SOA Source: patient, family, EMS Exam Limitations: no limitations History of Present Illness Date Seen by Provider: Jun 26, 2018 Time Seen by Provider: 20:25 Initial Comments Patient presents to ER by EMS with chief complaint she's having some shortness of breath the past 3 or 4 days. Chills and sweats but no known objective fever. She had a productive cough green green phlegm. No nausea chest pain or history of coronary disease. She doesn't history of COPD. She uses nebulized albuterol but she says she didn't take any today. She didn't feel like it. She says she has diabetes and she sometimes takes insulin when she feels like it. She has some pain in her right arm and shoulder on for a couple months and her primary care color she has a musculoskeletal problem requiring surgery but the orthopedic surgeons have advised her that she wouldn't survive the anesthesia secondary to her COPD. She says that about a month since she's been on prednisone or steroids of any sort.+ EMS reports when they arrived she was in moderate respiratory distress with some anxiety and relieved significantly with a DuoNeb en route. On the DuoNeb her oxygen sats were in the upper 90s percent. Allergies and Home Medications Allergies Coded Allergies: enalapril (Verified Allergy, Severe, ANAPHYLAXIS, 08/22/13) Home Medications Acetaminophen 325 Mg Tablet, 650 MG PO Q4H PRN for PAIN-MILD, (Reported) Acetaminophen/Diphenhydramine 1 Each Tablet, 2 TAB PO HS, (Reported) Albuterol Sulfate 2.5 Mg/3 Ml Vial.neb, 2.5 MG NEB Q4H PRN for SHORTNESS OF BREATH, (Reported) Albuterol Sulfate 1 Puff Puff, 1 PUFF IH Q4H PRN for SHORTNESS OF BREATH, ( Reported) 1 PUFF = 90 MCG Albuterol Sulfate 2.5 Mg/3 Ml Vial.neb, 2.5 MG NEB QID, (Reported) Alprazolam 0.25 Mg Tablet, 0.25 MG PO BID PRN for ANXIETY, (Reported) Amlodipine Besylate 10 Mg Tablet, 10 MG PO DAILY, (Reported) Aspirin 325 Mg Tablet.dr, 325 MG PO BID, (Reported) STOP DATE 12-17-17 Atorvastatin Calcium 10 Mg Tablet, 10 MG PO HS, (Reported) Fluticasone/Vilanterol 1 Each Blst.w.dev, 1 PUFF IH DAILY, (Reported) Furosemide 40 Mg Tablet, 40 MG PO DAILY, (Reported) Gabapentin 300 Mg Capsule, 300 MG PO BID, (Reported) Glimepiride 4 Mg Tablet, 4 MG PO BID, (Reported) Haloperidol 2 Mg Tablet, 4 MG PO TID Prescribed by: RADHA HAYES on 11/27/17 1053 Hydrocodone/Acetaminophen 1 Each Tablet, 1 TAB PO Q6H PRN for PAIN-MODERATE, ( Reported) Insulin Detemir 100 Unit/1 Ml Insuln.pen, 15 UNIT SQ 1100, (Reported) Metformin HCl 500 Mg Tablet, 1,000 MG PO BID, (Reported) TAKES 2 (500MG) TABLETS Multivit-Min/FA/Lycopene/Lut 1 Each Tablet, 1 TAB PO DAILY, (Reported) Naproxen 500 Mg Tablet, 500 MG PO BID, (Reported) Olanzapine 2.5 Mg Tablet, 2.5 MG PO HS, (Reported) STOP DATE 11-28-17 Ondansetron 4 Mg Tab.rapdis, 4 MG SL Q6H PRN for NAUSEA/VOMITING-1ST LINE, ( Reported) Oxymetazoline HCl 30 Ml Savery, 2 SPRAY NS Q4H PRN for CONGESTION, (Reported) Potassium Chloride 10 Meq Capsule.er, 10 MEQ PO HS, (Reported) Pramipexole Di-HCl 1 Mg Tablet, 1 MG PO HS, (Reported) Prednisone 20 Mg Tab, 40 MG PO DAILY Prescribed by: IMAN PARSONS on 12/02/17 5752 Sertraline HCl 50 Mg Tablet, 50 MG PO HS, (Reported) Tiotropium Matteson 4 Gm Mist.inhal, 2 PUFF IH DAILY, (Reported) Patient Home Medication List Home Medication List Reviewed: Yes Review of Systems Review of Systems Constitutional: chills; No diaphoresis, No fever; malaise EENTM: No ear discharge, No ear pain Respiratory: cough, phlegm, short of breath, wheezing Gastrointestinal: No abdominal pain, No constipation, No diarrhea, No nausea Genitourinary: No discharge, No dysuria Past Hblujtt-Zincoj-Tmaayp Hx Patient Social History Alcohol Use: Denies Use Recreational Drug Use: No Smoking Status: Former Smoker Type Used: Electronic/Vapor Former Smoker, Quit: Aug 25, 2012 2nd Hand Smoke Exposure: Yes Recent Foreign Travel: No Contact w/Someone Who Travel: No Recent Hopitalizations: Yes (dc'd 12/02/17) Immunizations Up To Date Tetanus Booster (TDap): Less than 5yrs PED Vaccines UTD: No Date of Pneumonia Vaccine: May 21, 2013 Date of Influenza Vaccine: May 25, 2017 Seasonal Allergies Seasonal Allergies: No Past Medical History Surgeries: Yes (TOTAL right hip, carpul tunnel bilat, LEFT KNEE SX, RIGHT ANKLE ) Gallbladder, Joint Replacement, Orthopedic Respiratory: Yes Asthma, Pneumonia, Chronic Bronchitis, COPD, Emphysema Currently Using CPAP: No Currently Using BIPAP: No Cardiac: Yes Chronic Edema/Swelling, Hypertension Neurological: Yes Neuropathy 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 Disorders: No Female 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 Disorders: Denies 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 TESTER History: Menopausal Sexually Transmitted Disease: No HIV/AIDS: No Genitourinary: No Gastrointestinal: Yes Gastroesophageal Reflux, Chronic Constipation, Diverticulosis, Hemorrhoids, Polyps, Hiatal Hernia, Gall Bladder Disease Musculoskeletal: Yes Degenerate Disk Disease, Arthritis, Chronic Back Pain Endocrine: Yes Diabetes, Insulin dep HEENT: No Cataract Loss of Vision: Denies Hearing Impairment: Denies Cancer: No Psychosocial: Yes Sleep Difficulties, Anxiety, Depression Integumentary: No Blood Disorders: No Adverse Reaction/Blood Tranf: No Family Medical History Completed stroke 09 BROTHER Family history: Asthma 03 MOTHER History of - respiratory disease 03 FATHER (PNEUMONIA) 03 MOTHER (ASTHMA, COPD) Heart Disease, COPD, Hypertension, Lung Disease Physical Exam Vital Signs - First Documented Capillary Refill : Height: 5'7.00" Weight: 205lbs. 9.0oz. 93.665124xr; 34.0 BMI Method:Estimated General Appearance: moderate distress Eyes: Bilateral Eye Normal Inspection, Bilateral Eye PERRL, Bilateral Eye EOMI HEENT: PERRL/EOMI, normal ENT inspection, pharynx normal Neck: non-tender, full range of motion, normal inspection Respiratory: chest non-tender, respiratory distress (mild-mod), decreased breath sounds, accessory muscle use (mod), wheezing, expiration (inc) Cardiovascular: normal peripheral pulses, regular rate, rhythm Gastrointestinal: normal bowel sounds, non tender, soft Extremities: normal range of motion, non-tender, normal capillary refill Neurologic/Psychiatric: alert, oriented x 3, other (anxious affect) Skin: normal color, warm/dry Focused Exam Lactate Level 06/26/18 20:32: Lactic Acid Level 0.93 Lactic Acid Level Laboratory Tests Test 06/26/18 20:32 Lactic Acid Level 0.93 MMOL/L (0.50-2.00) Procedures/Interventions Date of ETT Placement: Nov 01, 2017 Time of ETT Placement: 07 Progress/Results/Core Measures Suspected Sepsis SIRS Temperature: Pulse: Respiratory Rate: Laboratory Tests 06/26/18 20:32: White Blood Count 11.7H Blood Pressure / Mean: 06/26/18 20:32: Lactic Acid Level 0.93 Laboratory Tests 06/26/18 20:32: Creatinine 0.76, INR Comment 0.9, Platelet Count 262, Total Bilirubin 0.2 Results/Orders Lab Results Laboratory Tests Test 06/26/18 20:32 06/26/18 20:33 06/26/18 21:15 Range/Units White Blood Count 11.7 H 4.3-11.0 10^3/uL Red Blood Count 4.00 L 4.35-5.85 10^6/uL Hemoglobin 9.6 L 11.5-16.0 G/DL Hematocrit 34 L 35-52 % Mean Corpuscular Volume 85 80-99 FL Mean Corpuscular Hemoglobin 24 L 25-34 PG Mean Corpuscular Hemoglobin Concent 28 L 32-36 G/DL Red Cell Distribution Width 17.0 H 10.0-14.5 % Platelet Count 262 130-400 10^3/uL Mean Platelet Volume 11.4 H 7.4-10.4 FL Neutrophils (%) (Auto) 82 H 42-75 % Lymphocytes (%) (Auto) 10 L 12-44 % Monocytes (%) (Auto) 7 0-12 % Eosinophils (%) (Auto) 1 0-10 % Basophils (%) (Auto) 0 0-10 % Neutrophils # (Auto) 9.6 H 1.8-7.8 X 10^3 Lymphocytes # (Auto) 1.2 1.0-4.0 X 10^3 Monocytes # (Auto) 0.8 0.0-1.0 X 10^3 Eosinophils # (Auto) 0.1 0.0-0.3 10^3/uL Basophils # (Auto) 0.0 0.0-0.1 10^3/uL Prothrombin Time 12.6 12.2-14.7 SEC INR Comment 0.9 0.8-1.4 Activated Partial Thromboplast Time 25 24-35 SEC Sodium Level 143 135-145 MMOL/L Potassium Level 4.3 3.6-5.0 MMOL/L Chloride Level 101 98-107 MMOL/L Carbon Dioxide Level 33 H 21-32 MMOL/L Anion Gap 9 5-14 MMOL/L Blood Urea Nitrogen 17 7-18 MG/DL Creatinine 0.76 0.60-1.30 MG/DL Estimat Glomerular Filtration Rate > 60 BUN/Creatinine Ratio 22 Glucose Level 126 H 70-105 MG/DL Lactic Acid Level 0.93 0.50-2.00 MMOL/L Calcium Level 10.3 H 8.5-10.1 MG/DL Corrected Calcium 10.4 H 8.5-10.1 MG/DL Total Bilirubin 0.2 0.1-1.0 MG/DL Aspartate Amino Transf (AST/SGOT) 10 5-34 U/L Alanine Aminotransferase (ALT/SGPT) 9 0-55 U/L Alkaline Phosphatase 80 40-136 U/L C-Reactive Protein High Sensitivity 12.67 H 0.00-0.50 MG/DL Total Protein 7.0 6.4-8.2 GM/DL Albumin 3.9 3.2-4.5 GM/DL Blood Gas Puncture Site R RADIAL Blood Gas Patient Temperature 100.8 Arterial Blood pH 7.33 *L 7.37-7.43 Arterial Blood Partial Pressure CO2 70 H 35-45 MMHG Arterial Blood Partial Pressure O2 45 L 79-93 MMHG Arterial Blood HCO3 35 H 23-27 MMOL/L Arterial Blood Total CO2 37.1 H 21.0-31.0 MMOL/L Arterial Blood Oxygen Saturation 69 L 94-100 % Arterial Blood Base Excess 9.3 H -2.5-2.5 MMOL/L Barrington Test POSITIVE Blood Gas Ventilator Setting YES Blood Gas Inspired Oxygen 15L Urine Color YELLOW Urine Clarity CLEAR Urine pH 6.5 5-9 Urine Specific Mcbee 1.015 L 1.016-1.022 Urine Protein 3+ H NEGATIVE Urine Glucose (UA) NEGATIVE NEGATIVE Urine Ketones NEGATIVE NEGATIVE Urine Nitrite NEGATIVE NEGATIVE Urine Bilirubin NEGATIVE NEGATIVE Urine Urobilinogen NORMAL NORMAL MG/DL Urine Leukocyte Esterase 3+ H NEGATIVE Urine RBC (Auto) 3+ H NEGATIVE Urine RBC 2-5 H /HPF Urine WBC 10-25 H /HPF Urine Squamous Epithelial Cells 2-5 /HPF Urine Crystals NONE /LPF Urine Bacteria FEW H /HPF Urine Casts NONE /LPF Urine Mucus NEGATIVE /LPF Urine Culture Indicated NO Micro Results Microbiology 06/26/18 Influenza Types A,B Antigen (JANET) - Final, Complete My Orders Orders - IMAN PARSONS Cbc With Automated Diff (06/26/18 20:33) Comprehensive Metabolic Panel (06/26/18 20:33) Blood Culture (06/26/18 20:33) Sputum Culture (06/26/18 20:33) Urinalysis (06/26/18 20:33) Urine Culture (06/26/18 20:33) Protime With Inr (06/26/18 20:33) Partial Thromboplastin Time (06/26/18:33) Chest 1 View, Ap/Pa Only (06/26/18 20:33) Acetaminophen Tablet (Tylenol Tablet) (06/26/18 20:45) Saline Lock/Iv-Start (06/26/18 20:33) Saline Lock/Iv-Start (06/26/18 20:33) Vital Signs Adult Sepsis Patie Q15M (06/26/18 20:33) O2 (06/26/18 20:33) Remove Rings In Anticipation O (06/26/18 20:33) Lactic Acid Analyzer (06/26/18 20:33) Influenza A And B Antigens (06/26/18 20:33) Ns Iv 1000 Ml (Sodium Chloride 0.9%) (06/26/18 20:33) Cefepime Injection (Maxipime Injection) (06/26/18 20:45) Albuterol Pre-Mix Nebs (Rt) (Proventil (06/26/18 20:33) Albuterol/Ipra Inhalation Soln (Duoneb I (06/26/18 20:45) Svn Small Volume Nebulizer (06/26/18 20:33) Arterial Blood Gas (06/26/18 20:33) Hs C Reactive Protein (06/26/18 20:33) Arterial Blood Draw (06/26/18 20:53) Methylprednisolone Sod Succ (Solu-Medrol (06/26/18 22:45) Medications Given in ED Current Medications Medications Dose Ordered Sig/Fabienne Route Start Time Stop Time Status Last Admin Dose Admin Acetaminophen 1,000 mg ONCE PRN PO 06/26/18 20:45 11/2/18 20:51 DC 06/26/18 20:50 1,000 MG Albuterol/ Ipratropium 3 ml ONCE ONCE INH 06/26/18 20:45 06/26/18 20:46 DC 06/26/18 20:48 3 ML Cefepime HCl 1000 mg/Sodium Chloride 50 ml @ 100 mls/hr ONCE ONCE IV 06/26/18 20:45 06/26/18 21:14 DC 06/26/18 20:50 100 MLS/HR Vital Signs/I&O 06/26/18 06/26/18 06/26/18 20:26 20:26 20:48 Temp 100.8 Pulse 108 Resp 16 B/P (MAP) 179/98 (125) Pulse Ox 99 99 1 O2 Delivery OxyMask OxyMask Simple Mask O2 Flow Rate 7.00 7.00 15.00 Capillary Refill : Progress Note #1: Time: 20:45 Progress Note Appears to be another COPD exacerbation versus influenza/pneumonia. He does have a fever so we'll give her some Tylenol flu swabs, labs urine liter fluids and an hour-long breathing treatment as she still quite diminished.ABG. Progress Note #2: Time: 22:44 Progress Note Minimal white count elevation, productive sputum and a fever. When cover with antibiotics until we could prove it's not a pneumonia. Diagnostic Imaging Diagonstic Imaging: Xray Plain Films/CT/US/NM/MRI: chest (1v) Comments No acute cardio pulmonary processes noted. NAME: LOKESH BARKLEY MED REC#: [id number] PHYSICIAN: IMAN PARSONS MD CC: MARC SOSA MD; IMAN PARSONS Page 1 of 1 RADIOLOGY REPORT VIA [facility], [facility]. [place], [place] CC: MARC SOSA MD; IMAN PARSONS Page 1 of 1 RADIOLOGY REPORT NAME: LOKESH BARKLEY MED REC#: [id number] PT STATUS: REG ER : 1950 PHYSICIAN: IMAN PARSONS MD ADMIT DATE: 06/26/18/ER Signed Date of Exam: 06/26/18 CHEST 1 VIEW, AP/PA ONLY INDICATION: Shortness of breath. EXAMINATION: Portable erect AP chest at 8:54 p.m. FINDINGS: The mild cardiomegaly and the prominent brian seen on the prior exam of 12/02/2017 are again evident and no different. In the interval since the previous study, vague areas of increased density have developed over each lung base periphery. These findings may be secondary to superimposition of the breast tissue as opposed to a new parenchymal abnormality. Even so, clinical followup is recommended. The upper lungs are clear. The mediastinum is not widened. The osseous structures are intact. IMPRESSION: 1. The vague areas of increased density overlying each lung base may be secondary to superimposition as opposed to pneumonia/atelectasis. Clinical followup is recommended. There is no acute abnormality identified otherwise. 2. If further imaging is desired, then a followup PA and lateral chest would be recommended. Dictated by: Dictated on workstation # [id number] Dict: 06/26/182109 Trans: 06/26/182208 Interpreted by: MARC SOSA MD Electronically signed by: MARC SOSA MD 06/26/182208 Reviewed: Reviewed by Me Departure Communication (Admissions) Time/Spoke to Admitting Phy: 22:50 Discussed case lab imaging findings with Dr. Gan and he agrees to accept the patient for COPD exacerbation on Solu-Medrol. Impression Primary Impression: COPD with acute exacerbation Additional Impression: Respiratory failure with hypoxia and hypercapnia Qualified Codes: J96.21 - Acute and chronic respiratory failure with hypoxia; J96.22 - Acute and chronic respiratory failure with hypercapnia Disposition: ADMITTED INPATIENT Condition: Improved Admissions Decision to Admit Reason: Admit from ER (General) Decision to Admit/Date: Jun 26, 2018 Time/Decision to Admit Time: 22:33 Departure-Patient Inst. Referrals: RADHA HAYES DO (PCP/Family) Primary Care Physician Copy Copies To 1: RADHA HAYES TITUS J Jun 26, 2018 20:42
[2018-06-26 20:43] LABS: BASOPHILS % (AUTO) 0 % (0-10); EOSINOPHILS # (AUTO) 0.1 10^3/uL (0.0-0.3); EOSINOPHILS % (AUTO) 1 % (0-10); HEMATOCRIT 34 % (35-52); HEMOGLOBIN 9.6 G/DL (11.5-16.0); LYMPHOCYTES # (AUTO) 1.2 X 10^3 (1.0-4.0); LYMPHOCYTES % (AUTO) 10 % (12-44); MEAN CORPUSCULAR HEMOGLOBIN 24 PG (25-34); MEAN CORPUSCULAR HGB CONC 28 G/DL (32-36); MEAN CORPUSCULAR VOLUME 85 FL (80-99); MEAN PLATELET VOLUME 11.4 FL (7.4-10.4); MONOCYTES # (AUTO) 0.8 X 10^3 (0.0-1.0); MONOCYTES % (AUTO) 7 % (0-12); NEUTROPHILS # (AUTO) 9.6 X 10^3 (1.8-7.8); NEUTROPHILS % (AUTO) 82 % (42-75); PLATELET COUNT 262 10^3/uL (130-400); WHITE BLOOD COUNT 11.7 10^3/uL (4.3-11.0)
[2018-06-26] MEDS ORDERED: RT-ALBUTEROL/IPRATROPIUM 3 ML (DUONEB) VIAL INH ONE (20:45)
[2018-06-26] MEDS ORDERED: ACETAMINOPHEN 500 MG TAB (TYLENOL) PO PRN (20:45)
[2018-06-26] MEDS ORDERED: CEFEPIME INJECTION 1,000 MG in NS (IVPB) 50 ML IV ONE (20:45)
[2018-06-26 20:52] LABS: ABG BASE EXCESS 9.3 MMOL/L (-2.5-2.5); ABG OXYGEN SATURATION 69 % (94-100); ABG PCO2 70 MMHG (35-45); ABG PO2 45 MMHG (79-93); ABG TCO2 37.1 MMOL/L (21.0-31.0)
[2018-06-26 20:54] LABS: INR 0.9 (0.8-1.4); PROTHROMBIN TIME PATIENT 12.6 SEC (12.2-14.7)
[2018-06-26 20:55] LABS: ABG PH 7.33 (7.37-7.43)
[2018-06-26 20:56] LABS: ALLENS TEST POSITIVE; INSPIRED O2 15L; PATIENT TEMP 100.8; VENTILATOR YES
[2018-06-26 21:03] LABS: ALANINE AMINOTRANSFERASE 9 U/L (0-55); ALBUMIN 3.9 GM/DL (3.2-4.5); ALKALINE PHOSPHATASE 80 U/L (40-136); BILIRUBIN,TOTAL 0.2 MG/DL (0.1-1.0); BUN/CREATININE RATIO 22; CALCIUM 10.3 MG/DL (8.5-10.1); CARBON DIOXIDE 33 MMOL/L (21-32); CHLORIDE 101 MMOL/L (98-107); CREATININE SERUM 0.76 MG/DL (0.60-1.30); GFR ESTIMATED > 60; GLUCOSE 126 MG/DL (70-105); POTASSIUM 4.3 MMOL/L (3.6-5.0); SODIUM 143 MMOL/L (135-145)
--- NOTE | 2018-06-26 21:16 | Diagnostic Imaging Report ---
INDICATION: Shortness of breath. EXAMINATION: Portable erect AP chest at 8:54 p.m. FINDINGS: The mild cardiomegaly and the prominent brian seen on the prior exam of 12/02/2017 are again evident and no different. In the interval since the previous study, vague areas of increased density have developed over each lung base periphery. These findings may be secondary to superimposition of the breast tissue as opposed to a new parenchymal abnormality. Even so, clinical followup is recommended. The upper lungs are clear. The mediastinum is not widened. The osseous structures are intact. IMPRESSION: 1. The vague areas of increased density overlying each lung base may be secondary to superimposition as opposed to pneumonia/atelectasis. Clinical followup is recommended. There is no acute abnormality identified otherwise. 2. If further imaging is desired, then a followup PA and lateral chest would be recommended. Dictated by: Dictated on workstation # [id number]
[2018-06-26 21:28] LABS: BILIRUBIN,URINE NEGATIVE (NEGATIVE); CLARITY,URINE CLEAR; COLOR,URINE YELLOW; GLUCOSE, URINE (UA) NEGATIVE (NEGATIVE); KETONES,URINE NEGATIVE (NEGATIVE); LEUKOCYTE ESTERASE ,URINE 3+ (NEGATIVE); NITRITE,URINE NEGATIVE (NEGATIVE); PH,URINE 6.5 (5-9); PROTEIN,URINE 3+ (NEGATIVE); UROBILINOGEN,URINE NORMAL (NORMAL)
[2018-06-26 21:36] LABS: BACTERIA,URINE FEW /HPF
[2018-06-26] MEDS ORDERED: methylPREDNISolone 125 MG (Solu-MEDROL) VIAL IVP ONE (22:45)
[2018-06-26] MEDS ORDERED: LORazepam INJ 2 MG/ML (ATIVAN) VIAL IVP ONE (23:00)
[2018-06-27] VITALS (7 sets, daily range): BP systolic 126–182; BP diastolic 68–98
[2018-06-27] MEDS ORDERED: ONDANSETRON 4 MG/2 ML (SDV) Z0FRAN IV PRN (00:30)
[2018-06-27] MEDS ORDERED: RT-ALBUTEROL/IPRATROPIUM 3 ML (DUONEB) VIAL INH PRN (00:45)
[2018-06-27] MEDS: 1/2 NS W/KCL 20 MEQ/L 1,000 ML IV SCH ×5 (00:51→23:37)
[2018-06-27] MEDS ORDERED: SERTRALINE 50 MG (ZOLOFT) TABLET ONE (00:54)
[2018-06-27] MEDS ORDERED: OLANZapine 5 MG (ZyPREXA) TAB ONE (00:57)
[2018-06-27] MEDS: OLANZapine 2.5 MG (ZyPREXA) TAB PO SCH ×2 (00:59→22:13)
[2018-06-27] MEDS: SERTRALINE 50 MG (ZOLOFT) TABLET PO SCH ×2 (00:59→22:13)
[2018-06-27] MEDS ORDERED: GABAPENTIN 300 MG (NEURONTIN) CAP ONE (01:02)
[2018-06-27] MEDS: HYDROcodone/APAP 5 MG/325 MG (LORTAB) TAB PO PRN ×3 (01:08→23:38)
[2018-06-27] MEDS: GABAPENTIN 300 MG (NEURONTIN) CAP PO SCH ×3 (01:08→22:13)
[2018-06-27] MEDS: RT-ALBUTEROL/IPRATROPIUM 3 ML (DUONEB) VIAL INH SCH ×6 (03:04→22:41)
[2018-06-27] MEDS: inSUlin ASPART (NovoLOG) 1 UNIT/0.01 ML (CHARGE PER UNIT) SC SCH ×4 (06:53→21:01)
[2018-06-27 06:56] LABS: BASOPHILS % (AUTO) 0 % (0-10); EOSINOPHILS % (AUTO) 0 % (0-10); HEMATOCRIT 28 % (35-52); HEMOGLOBIN 8.3 G/DL (11.5-16.0); LYMPHOCYTES # (AUTO) 0.4 X 10^3 (1.0-4.0); LYMPHOCYTES % (AUTO) 3 % (12-44); MEAN CORPUSCULAR HEMOGLOBIN 25 PG (25-34); MEAN CORPUSCULAR HGB CONC 30 G/DL (32-36); MEAN CORPUSCULAR VOLUME 83 FL (80-99); MEAN PLATELET VOLUME 11.7 FL (7.4-10.4); MONOCYTES # (AUTO) 0.1 X 10^3 (0.0-1.0); MONOCYTES % (AUTO) 1 % (0-12); NEUTROPHILS # (AUTO) 10.7 X 10^3 (1.8-7.8); NEUTROPHILS % (AUTO) 96 % (42-75); PLATELET COUNT 257 10^3/uL (130-400); RED BLOOD COUNT 3.37 10^6/uL (4.35-5.85); RED CELL DISTRIBUTION WIDTH 17.2 % (10.0-14.5); WHITE BLOOD COUNT 11.1 10^3/uL (4.3-11.0)
[2018-06-27 07:46] LABS: NEUTROPHILS % (MANUAL) 90 %
[2018-06-27 07:47] LABS: BAND NEUTROPHILS 7 %; HYPOCHROMASIA MODERATE; LYMPHOCYTES % (MANUAL) 2 %; MONOCYTES % (MANUAL) 1 %
[2018-06-27] MEDS: CEFEPIME INJECTION 2,000 MG in NS (IVPB) 50 ML IV SCH ×2 (08:47→22:13)
[2018-06-27] MEDS: inSUlin DETERMIR 1 UNIT/0.01 ML (LEVEMIR) CHARGE PER UNIT SQ SCH ×2 (08:48→22:13)
[2018-06-27] MEDS: ASPIRIN 325 MG (5 GR) TABLET PO SCH (08:48)
[2018-06-27] MEDS: UMECLIDINIUM BROMIDE (INCRUSE ELLIPTA) 7'S IH SCH (10:15)
--- NOTE | 2018-06-27 11:14 | Diagnostic Imaging Report ---
INDICATION: Hypoxia, dyspnea, hypercapnia. COMPARISON: 06/26/2018. DISCUSSION: Two views of the chest were obtained. The lungs remain hyperinflated. Atelectasis is noted within the right lower lobe. Improved aeration of the lung bases. Pulmonary artery hypertension is stable, chronic. Mild cardiomegaly is stable. No new consolidation, pleural fluid, or pneumothorax. Age-related degenerative changes are noted throughout the thoracic spine. IMPRESSION: 1. Chronic changes as discussed. No acute abnormality. Dictated by: Dictated on workstation # [id number]
--- NOTE | 2018-06-27 12:33 | History & Physical-Hospitalist ---
History of Present Illness HPI/Chief Complaint The patient is a 67-year-old white female with known hypercapnic respiratory failure due to COPD he noted that 3-4 day history of increased shortness of breath. She has some chills without Reiger's and some sweats but is not sure whether or not she was ever febrile. Her cough came worse than baseline with purulent greenish report his secretions. No blood was noted. Due to significant increase in shortness of breath she was brought to the emergency room for further evaluation. There she was hypoxic hypercapnic with mild acidosis with questionable mild infiltrates. She was admitted for treatment of acute on chronic hypercapnic respiratory failure questionable pneumonia. Date Seen 06/27/18 Time Seen by a Provider: 08:00 Attending Physician Blake Gan MD PCP Sina Hayes DO Referring Physician Date of Admission Jun 26, 2018 at 22:35 Home Medications & Allergies Home Medications Reviewed patient Home Medication Reconciliation performed by pharmacy medication reconciliations supply technician and/or nursing. Patients Allergies have been reviewed. Allergies Allergies Coded Allergies enalapril (Verified Allergy, Severe, ANAPHYLAXIS, 08/22/13) Past Gwyoekm-Umqscn-Yprdke Hx Past Med/Social Hx: Reviewed and Corrections made Patient Social History Alcohol Use: Denies Use Recreational Drug Use: No Smoking Status: Former Smoker Former Smoker, Quit: Aug 25, 2012 Type Used: Electronic/Vapor 2nd Hand Smoke Exposure: Yes Physical Abuse Screen: No Sexual Abuse: No Recent Foreign Travel: No Contact w/other who traveled: No Recent Hopitalizations: No Recent Infectious Disease Expo: No Immunizations Up To Date Tetanus Booster (TDap): Less than 5yrs Pediatric: No Date of Pneumonia Vaccine: May 21, 2013 Date of Influenza Vaccine: May 25, 2018 Seasonal Allergies Seasonal Allergies: No Past Medical History Surgeries: Gallbladder, Joint Replacement, Orthopedic Respiratory: COPD Currently Using CPAP: Yes Currently Using BIPAP: No Cardiac: Chronic Edema/Swelling, Hypertension Neurological: Neuropathy 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: No Sexually Transmitted Disease: No HIV/AIDS: No Female 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 Disorders: Denies Menopausal Gastrointestinal: Gastroesophageal Reflux, Chronic Constipation, Diverticulosis , Hemorrhoids, Polyps, Hiatal Hernia, Gall Bladder Disease Musculoskeletal: Degenerate Disk Disease, Arthritis, Chronic Back Pain Endocrine: Diabetes, Insulin dep HEENT: Cataract Loss of Vision: Denies Hearing Impairment: Denies Psychosocial: Sleep Difficulties, Anxiety, Depression History of Blood Disorders: No Adverse Reaction to Blood Leung: No Family History Completed stroke 09 BROTHER Family history: Asthma 03 MOTHER History of - respiratory disease 03 FATHER (PNEUMONIA) 03 MOTHER (ASTHMA, COPD) Heart Disease, COPD, Hypertension, Lung Disease Review of Systems Constitutional: see HPI Physical Exam Physical Exam Vital Signs Vital Signs - First Documented 06/26/18 22:00 FiO2 50 Capillary Refill : Less Than 3 Seconds Height, Weight, BMI Height: 5'9.00" Weight: 220lbs. 3.0oz. 99.737313ib; 32.5 BMI Method:Stated General Appearance: Chronically ill, Mild Distress, Obese Neck: Full Range of Motion, Normal Inspection, Non Tender, Supple, Carotid Bruit Respiratory: Chest Non Tender, Accessory Muscle Use, Other (Mild expiratory wheezes with diminished breath sounds throughout few scattered rhonchi and no rales appreciated. Mild accessory muscle use but patient reports less shortness of breath) Cardiovascular: Regular Rate, Rhythm, No Edema, No Gallop, No JVD, No Murmur, Normal Peripheral Pulses Extremity: Other (1-2+ edema to the mid tibia bilaterally extremities are warm with normal range of motion.) Results Results/Procedures Labs Laboratory Tests 06/26/18 20:32 06/27/18 06:10 Patient resulted labs reviewed. Assessment/Plan Admission Diagnosis 1. Acute on chronic hypercapnic respiratory failure due to either acute bronchitis versus pneumonia continue current IV antibiotics and bronchodilator therapy and steroid therapy. 2. Type II diabetes mellitus. Patient warned that she would require insulin while on steroid therapy and strongly advised to stick to a low glycemic diet discussed in layman's terms. Will initiate twice a day Levemir and continue sliding scale bolus insulin. Admission Status: Inpatient Order (span 2 midnights) Reason for Inpatient Admission: As per above Critical Care Critically Ill Patient Clinical Quality Measures DVT/VTE Risk/Contraindication: Risk Factor Score Per Nursin RFS Level Per Nursing on Admit: 4+=Very High Copy Copies To 1: SINA HAYES MARK D MD Jun 27, 2018 12:32
[2018-06-27] MEDS: LORazepam INJ 2 MG/ML (ATIVAN) VIAL IVP PRN (22:14)
[2018-06-27] MEDS ORDERED: methylPREDNISolone 40 MG/ML (Solu-MEDROL) VIAL IV SCH (23:00)
[2018-06-28] VITALS: BP 145/76
[2018-06-28] MEDS: RT-ALBUTEROL/IPRATROPIUM 3 ML (DUONEB) VIAL INH SCH ×6 (01:05→22:45)
[2018-06-28 04:00] VITALS: BP 175/81
[2018-06-28] MEDS: 1/2 NS W/KCL 20 MEQ/L 1,000 ML IV SCH ×4 (04:34→22:57)
[2018-06-28] MEDS: inSUlin ASPART (NovoLOG) 1 UNIT/0.01 ML (CHARGE PER UNIT) SC SCH ×4 (06:09→20:33)
[2018-06-28 08:00] VITALS: BP 143/87
[2018-06-28] MEDS: CEFEPIME INJECTION 2,000 MG in NS (IVPB) 50 ML IV SCH ×2 (08:05→20:32)
[2018-06-28] MEDS: GABAPENTIN 300 MG (NEURONTIN) CAP PO SCH ×2 (08:05→20:32)
[2018-06-28] MEDS: ASPIRIN 325 MG (5 GR) TABLET PO SCH (08:06)
[2018-06-28] MEDS: inSUlin DETERMIR 1 UNIT/0.01 ML (LEVEMIR) CHARGE PER UNIT SQ SCH ×2 (08:06→20:33)
[2018-06-28] MEDS: HYDROcodone/APAP 5 MG/325 MG (LORTAB) TAB PO PRN ×3 (08:06→22:57)
[2018-06-28] MEDS: UMECLIDINIUM BROMIDE (INCRUSE ELLIPTA) 7'S IH SCH (09:28)
--- NOTE | 2018-06-28 12:07 | Progress Note-Hospitalist ---
Subjective HPI/CC On Admission Date Seen by Provider: Jun 28, 2018 Time Seen by Provider: 12:03 The patient is a 67-year-old white female with known hypercapnic respiratory failure due to COPD he noted that 3-4 day history of increased shortness of breath. She has some chills without Reiger's and some sweats but is not sure whether or not she was ever febrile. Her cough came worse than baseline with purulent greenish report his secretions. No blood was noted. Due to significant increase in shortness of breath she was brought to the emergency room for further evaluation. There she was hypoxic hypercapnic with mild acidosis with questionable mild infiltrates. She was admitted for treatment of acute on chronic hypercapnic respiratory failure questionable pneumonia. Subjective/Events-last exam Patient reports less shortness of breath sputum production is less colored and decreasing in amount. She denies night sweats chills or fever and denies chest pain. She does report increased lower extremity swelling and is been on 175 mL per hour IV fluid. Focused Exam Lactate Level 06/26/18 20:32: Lactic Acid Level 0.93 Objective Exam Vital Signs Vital Signs Date Time Temp Pulse Resp B/P (MAP) Pulse Ox O2 Delivery O2 Flow Rate FiO2 06/28/18 09:28 95 Nasal Cannula 3.00 06/28/18 08:00 96.3 77 22 143/87 (105) 06/27/18 19:50 50 Capillary Refill : Less Than 3 Seconds General Appearance: No Apparent Distress, Chronically ill, Obese Respiratory: Chest Non Tender, No Accessory Muscle Use, No Respiratory Distress , Other (Chest is clear anteriorly there are diminished breath sounds posteriorly with faint expiratory wheezing) Cardiovascular: Regular Rate, Rhythm, No Edema, No Gallop, No JVD, No Murmur, Normal Peripheral Pulses Gastrointestinal: Normal Bowel Sounds, No Organomegaly, No Pulsatile Mass, Non Tender, Soft Extremity: Other (Extremities warm with 2+ edema to the mid tibia no erythema or ulceration noted.) Results/Procedures Lab Patient resulted labs reviewed. Assessment/Plan Assessment and Plan Assess & Plan/Chief Complaint 1. Acute on chronic hypercapnic respiratory failure due to either acute bronchitis versus pneumonia continue current IV antibiotics and bronchodilator therapy and due to improvement we'll begin IV steroid taper.. 2. Type II diabetes mellitus. Patient warned that she would require insulin while on steroid therapy and strongly advised to stick to a low glycemic diet discussed in layman's terms. Will initiate twice a day Levemir and continue sliding scale bolus insulin. 3. Blood pressures have normalized considering lower extremity edema will DC IV fluids and discussing importance of leg elevation when sitting in her recliner. She tends to spend a lot of time with her feet down also aggravating edema which we pointed out. If the patient is noted to be consistently hypertensive would add diuretic therapy. 4. Hypercalcemia on admission questionably aggravated by dehydration we'll resume basic metabolic panel and PTH level and CBC in the morning. For this reason if the patient is started on diuretic therapy in the future would avoid thiazide diuretics in favor of loop diuretic therapy. Critical Care Critical Care: Critically Ill Patient Clinical Quality Measures DVT/VTE Risk/Contraindication: Risk Factor Score Per Nursin RFS Level Per Nursing on Admit: 4+=Very High LIZ CEDEÑO MD Jun 28, 2018 12:07
[2018-06-28 12:09] VITALS: BP 175/79
[2018-06-28 15:55] VITALS: BP 145/89
[2018-06-28 20:05] VITALS: BP 136/82
[2018-06-28] MEDS: SERTRALINE 50 MG (ZOLOFT) TABLET PO SCH (20:32)
[2018-06-28] MEDS: OLANZapine 2.5 MG (ZyPREXA) TAB PO SCH (20:32)
[2018-06-28] MEDS: LORazepam INJ 2 MG/ML (ATIVAN) VIAL IVP PRN (20:40)
[2018-06-29] VITALS: BP 155/75
[2018-06-29] MEDS: LORazepam INJ 2 MG/ML (ATIVAN) VIAL IVP PRN ×4 (00:34→18:42)
[2018-06-29] MEDS: RT-ALBUTEROL/IPRATROPIUM 3 ML (DUONEB) VIAL INH SCH ×6 (02:37→21:50)
[2018-06-29] MEDS: ACETAMINOPHEN 500 MG TAB (TYLENOL) PO PRN ×2 (03:12→19:37)
[2018-06-29] MEDS: HYDROcodone/APAP 5 MG/325 MG (LORTAB) TAB PO PRN ×4 (05:27→23:58)
[2018-06-29] MEDS: inSUlin ASPART (NovoLOG) 1 UNIT/0.01 ML (CHARGE PER UNIT) SC SCH ×4 (05:43→21:14)
[2018-06-29] MEDS: predniSONE 20 MG TAB PO SCH (06:07)
[2018-06-29 06:29] LABS: BASOPHILS % (AUTO) 1 % (0-10); EOSINOPHILS # (AUTO) 0.1 10^3/uL (0.0-0.3); EOSINOPHILS % (AUTO) 1 % (0-10); HEMATOCRIT 27 % (35-52); HEMOGLOBIN 7.7 G/DL (11.5-16.0); LYMPHOCYTES # (AUTO) 1.2 X 10^3 (1.0-4.0); LYMPHOCYTES % (AUTO) 14 % (12-44); MEAN CORPUSCULAR HEMOGLOBIN 25 PG (25-34); MEAN CORPUSCULAR HGB CONC 29 G/DL (32-36); MEAN CORPUSCULAR VOLUME 85 FL (80-99); MEAN PLATELET VOLUME 10.8 FL (7.4-10.4); MONOCYTES # (AUTO) 0.8 X 10^3 (0.0-1.0); MONOCYTES % (AUTO) 9 % (0-12); NEUTROPHILS % (AUTO) 75 % (42-75); PLATELET COUNT 332 10^3/uL (130-400); RED BLOOD COUNT 3.12 10^6/uL (4.35-5.85); RED CELL DISTRIBUTION WIDTH 17.5 % (10.0-14.5); WHITE BLOOD COUNT 8.1 10^3/uL (4.3-11.0)
[2018-06-29] MEDS: UMECLIDINIUM BROMIDE (INCRUSE ELLIPTA) 7'S IH SCH (07:11)
[2018-06-29 07:24] LABS: BUN/CREATININE RATIO 33; CALCIUM 9.9 MG/DL (8.5-10.1); CARBON DIOXIDE 24 MMOL/L (21-32); CHLORIDE 111 MMOL/L (98-107); CREATININE SERUM 0.75 MG/DL (0.60-1.30); GFR ESTIMATED > 60; GLUCOSE 106 MG/DL (70-105); POTASSIUM 4.5 MMOL/L (3.6-5.0); SODIUM 143 MMOL/L (135-145)
[2018-06-29 08:00] VITALS: BP 146/88
--- NOTE | 2018-06-29 08:09 | Progress Note (SOAP) ---
Subjective Time Seen by a Provider: 08:07 Subjective/Events-last exam Patient still not feeling good. Ration spitting up green sputum. Patient congested and has some wheezing Focused Exam Lactate Level 06/26/18 20:32: Lactic Acid Level 0.93 Objective Exam Vital Signs Date Time Temp Pulse Resp B/P (MAP) Pulse Ox O2 Delivery O2 Flow Rate FiO2 06/29/18 07:11 95 Nasal Cannula 3.00 06/29/18 02:37 95 Nasal Cannula 3.00 06/29/18 00:00 97.9 93 24 155/75 (101) 24 Nasal Cannula 3.00 06/28/18 22:45 88 Nasal Cannula 3.00 06/28/18 20:05 97.5 81 20 136/82 (100) 98 Nasal Cannula 3.00 06/28/18 19:45 98 Nasal Cannula 3.00 50 06/28/18 18:26 97 Nasal Cannula 3.00 06/28/18 15:55 98.4 71 20 145/89 (107) 97 Nasal Cannula 3.00 06/28/18 14:16 97 Nasal Cannula 3.00 06/28/18 12:09 98.1 70 20 175/79 (111) 99 Nasal Cannula 3.00 06/28/18 09:28 95 Nasal Cannula 3.00 I & O 06/29/18 07:00 Intake Total 2520 ml Output Total 750 ml Balance 1770 ml Capillary Refill : Less Than 3 Seconds General Appearance: No Apparent Distress, WD/WN HEENT: Normal ENT Inspection Neck: Full Range of Motion, Normal Inspection Respiratory: No Accessory Muscle Use, No Respiratory Distress, Decreased Breath Sounds, Wheezing Cardiovascular: Regular Rate, Rhythm, No Murmur Gastrointestinal: non tender, soft Results Lab Laboratory Tests 06/29/18 06:10 Laboratory Tests 06/28/18 11:31: Glucometer 157H 06/28/18 15:57: Glucometer 209H 06/28/18 20:05: Glucometer 112H 06/29/18 05:38: Glucometer 120H 06/29/18 06:10: White Blood Count 8.1, Red Blood Count 3.12L, Hemoglobin 7.7L, Hematocrit 27L, Mean Corpuscular Volume 85, Mean Corpuscular Hemoglobin 25, Mean Corpuscular Hemoglobin Concent 29L, Red Cell Distribution Width 17.5H, Platelet Count 332, Mean Platelet Volume 10.8H, Neutrophils (%) (Auto) 75, Lymphocytes (%) (Auto) 14 , Monocytes (%) (Auto) 9, Eosinophils (%) (Auto) 1, Basophils (%) (Auto) 1, Neutrophils # (Auto) 6.0, Lymphocytes # (Auto) 1.2, Monocytes # (Auto) 0.8, Eosinophils # (Auto) 0.1, Basophils # (Auto) 0.0, Sodium Level 143, Potassium Level 4.5, Chloride Level 111H, Carbon Dioxide Level 24, Anion Gap 8, Blood Urea Nitrogen 25H, Creatinine 0.75, Estimat Glomerular Filtration Rate > 60, BUN /Creatinine Ratio 33, Glucose Level 106H, Calcium Level 9.9 Microbiology 06/26/18 Blood Culture - Preliminary, Resulted No growth 06/26/18 Influenza Types A,B Antigen (JANET) - Final, Complete 06/26/18 Urine Culture - Final, Complete See Comments Assessment/Plan Assessment/Plan Assess & Plan/Chief Complaint Hypercapnia respiratory failure. COPD with acute exacerbation. Diabetes. Clinical Quality Measures DVT/VTE Risk/Contraindication: Risk Factor Score Per Nursin RFS Level Per Nursing on Admit: 4+=Very High RADHA HAYES DO Jun 29, 2018 08:09
--- NOTE | 2018-06-29 08:56 | Diagnostic Imaging Report ---
INDICATION: COPD exacerbation. TIME OF EXAMINATION: 08:56 a.m. COMPARISON: Correlation is made with prior study from 06/27/2018. FINDINGS: Lungs are hyperinflated consistent with COPD. There appears to be some scarring or atelectasis in the right base. The left lung is clear. No effusion or pneumothorax is identified. IMPRESSION: Right basilar subsegmental atelectasis and COPD. No other significant abnormality is detected. Dictated by: Dictated on workstation # [id number]
[2018-06-29] MEDS: GABAPENTIN 300 MG (NEURONTIN) CAP PO SCH ×2 (09:09→19:33)
[2018-06-29] MEDS: CEFEPIME INJECTION 2,000 MG in NS (IVPB) 50 ML IV SCH ×2 (09:09→19:33)
[2018-06-29] MEDS: ASPIRIN 325 MG (5 GR) TABLET PO SCH (09:13)
[2018-06-29] MEDS: inSUlin DETERMIR 1 UNIT/0.01 ML (LEVEMIR) CHARGE PER UNIT SQ SCH ×2 (09:13→21:15)
[2018-06-29] MEDS ORDERED: MILK OF MAGNESIA 400 MG/5 ML 30 ML UDC PO PRN (10:45)
--- NOTE | 2018-06-29 10:59 | Pulmonary Consultation ---
History of Present Illness History of Present Illness Date of Consultation 06/29/18 10:56 Date of Admission Allergies and Home Medications Allergies Coded Allergies: enalapril (Verified Allergy, Severe, ANAPHYLAXIS, 08/22/13) Home Medications Acetaminophen 325 Mg Tablet, 650 MG PO Q4H PRN for PAIN-MILD, (Reported) Albuterol Sulfate 2.5 Mg/3 Ml Vial.neb, 2.5 MG NEB Q4H PRN for SHORTNESS OF BREATH, (Reported) Amlodipine Besylate 10 Mg Tablet, 10 MG PO DAILY, (Reported) Aspirin 325 Mg Tablet.dr, 325 MG PO DAILY PRN for HEADACHE, (Reported) Atorvastatin Calcium 10 Mg Tablet, 10 MG PO HS, (Reported) Budesonide/Formoterol Fumarate 10.2 Gm Hfa.aer.ad, 2 PUFF IH BID, (Reported) Cefdinir 300 Mg Capsule, 300 MG PO BID Prescribed by: AGUSTINA BECERRIL on 07/01/18 0820 Furosemide 40 Mg Tablet, 40 MG PO DAILY, (Reported) Gabapentin 300 Mg Capsule, 300 MG PO BID, (Reported) Glimepiride 4 Mg Tablet, 4 MG PO BID, (Reported) Hydrocodone/Acetaminophen 1 Each Tablet, 1 TAB PO TID PRN for PAIN-MODERATE, ( Reported) Insulin Aspart 100 Unit/1 Ml Susp, SQ AC PRN for SLIDING SCLAE, (Reported) Insulin Glargine,Hum.rec.anlog 300 Unit/1 Ml Insuln.pen, 6 UNIT SQ DAILY, ( Reported) Metformin HCl 500 Mg Tablet, 1,000 MG PO BID, (Reported) TAKES 2 (500MG) TABLETS Naproxen 500 Mg Tablet, 500 MG PO BID PRN for PAIN-MILD, (Reported) Oxymetazoline HCl 30 Ml [place], 2 SPRAY NS Q4H PRN for CONGESTION, (Reported) Potassium Chloride 10 Meq Capsule.er, 10 MEQ PO HS, (Reported) Pramipexole Di-HCl 1 Mg Tablet, 1 MG PO HS, (Reported) Prednisone 10 Mg Tab, 10 MG PO UD TAKE 30 MG (3 TABS) DAY 1, 20 MG (2 TABS) DAY 2, AND 10 MG DAY 3 Prescribed by: BILLY RAMIRES on 07/01/18 0805 Sertraline HCl 50 Mg Tablet, 50 MG PO HS, (Reported) Tiotropium [place] 1 Inh Aerp, 1 CAP IH DAILY, (Reported) Past Cfqqsgn-Mbrlkw-[place] Hx Past Med/Social Hx: Reviewed and Corrections made Patient Social History Alcohol Use: Denies Use Recreational Drug Use: No Smoking Status: Former Smoker Type Used: Electronic/Vapor Former Smoker, Quit: Aug 25, 2012 2nd Hand Smoke Exposure: Yes Recent Foreign Travel: No Contact w/Someone Who Travel: No Recent Infectious Disease Expo: No Recent Hopitalizations: No Physical Abuse: No Sexual Abuse: No Immunizations Up To Date Tetanus Booster (TDap): Less than 5yrs PED Vaccines UTD: No Date of Pneumonia Vaccine: May 21, 2013 Date of Influenza Vaccine: May 25, 2018 Seasonal Allergies Seasonal Allergies: No Past Medical History Surgeries: Yes (TOTAL right hip, carpul tunnel bilat, LEFT KNEE SX, RIGHT ANKLE ) Gallbladder, Joint Replacement, Orthopedic Respiratory: Yes Asthma, Pneumonia, Chronic Bronchitis, COPD, Emphysema Currently Using CPAP: Yes Currently Using BIPAP: No Cardiac: Yes Chronic Edema/Swelling, Hypertension Neurological: Yes Neuropathy : No 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 Disorders: No Female 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 Disorders: Denies 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 Sexually Transmitted Disease: No HIV/AIDS: No Genitourinary: No Gastrointestinal: Yes Gastroesophageal Reflux, Chronic Constipation, Diverticulosis, Hemorrhoids, Polyps, Hiatal Hernia, Gall Bladder Disease Musculoskeletal: Yes Degenerate Disk Disease, Arthritis, Chronic Back Pain Endocrine: Yes Diabetes, Insulin dep HEENT: No Cataract Loss of Vision: Denies Hearing Impairment: Denies Cancer: No Psychosocial: Yes Sleep Difficulties, Anxiety, Depression Integumentary: No Blood Disorders: No Adverse Reaction/Blood Tranf: No Family Medical History Completed stroke 09 BROTHER Family history: Asthma 03 MOTHER History of - respiratory disease 03 FATHER (PNEUMONIA) 03 MOTHER (ASTHMA, COPD) Heart Disease, COPD, Hypertension, Lung Disease Review of Systems Time Seen by Provider: 10:01 Sepsis Event Evaluation Height, Weight, BMI Height: 5'9.00" Weight: 220lbs. 3.0oz. 99.055216lz; 32.5 BMI Method:Stated Exam Exam Vital Signs Date Time Temp Pulse Resp B/P (MAP) Pulse Ox O2 Delivery O2 Flow Rate FiO2 06/29/18 08:00 98.5 84 22 146/88 (107) 96 Nasal Cannula 3.00 06/29/18 08:00 Nasal Cannula 3.00 06/29/18 07:11 95 Nasal Cannula 3.00 06/29/18 02:37 95 Nasal Cannula 3.00 06/29/18 00:00 97.9 93 24 155/75 (101) 24 Nasal Cannula 3.00 06/28/18 22:45 88 Nasal Cannula 3.00 06/28/18 20:05 97.5 81 20 136/82 (100) 98 Nasal Cannula 3.00 06/28/18 19:45 98 Nasal Cannula 3.00 50 06/28/18 18:26 97 Nasal Cannula 3.00 06/28/18 15:55 98.4 71 20 145/89 (107) 97 Nasal Cannula 3.00 06/28/18 14:16 97 Nasal Cannula 3.00 06/28/18 12:09 98.1 70 20 175/79 (111) 99 Nasal Cannula 3.00 I & O 06/29/18 07:00 Intake Total 2520 ml Output Total 750 ml Balance 1770 ml Height & Weight Height: 5'9.00" Weight: 220lbs. 3.0oz. 99.869167nq; 32.5 BMI Method:Stated General Appearance: No Apparent Distress, WD/WN HEENT: Normal ENT Inspection Neck: Full Range of Motion, Normal Inspection Respiratory: No Accessory Muscle Use, No Respiratory Distress, Decreased Breath Sounds, Wheezing Cardiovascular: Regular Rate, Rhythm, No Murmur Capillary Refill: Less Than 3 Seconds Gastrointestinal: non tender, soft Extremity: Other (Extremities warm with 2+ edema to the mid tibia no erythema or ulceration noted.) Results Lab Laboratory Tests 06/29/18 06:10 Assessment/Plan Assessment/Plan Acute on chronic respiratory failure -Pt would benefit from home vent to mask -Noninvasive ventilation QHS and PRN COPDAE -Steroids -SVNS with duoneb -oxygen Atelectasis -Increase activity -IS x 10 breaths q 1hr WA Hx of severe oxygen dependent COPD MK RAMOS DO Jun 29, 2018 10:59
[2018-06-29] MEDS ORDERED: PRAM1TAB5 PO (11:05)
[2018-06-29] MEDS ORDERED: INSU300I SQ (11:05)
[2018-06-29] MEDS ORDERED: POTA10CA43 PO (11:05)
[2018-06-29] MEDS ORDERED: BUDE10.2 IH (11:05)
[2018-06-29] MEDS ORDERED: TIOT18CA2 IH (11:05)
[2018-06-29] MEDS ORDERED: INSU100V16 SQ (11:29)
--- NOTE | 2018-06-29 14:18 | Occ Therapy Progress Note ---
Therapy Progress Note Late entry for 06/27/2018. Discussed pt with nrsg. Nrsg reported that pt was completing ADLs by self, OT not needed. ÓSCAR PARSONS Jun 29, 2018 14:18
[2018-06-29 15:35] VITALS: BP 176/80
[2018-06-29] MEDS: SERTRALINE 50 MG (ZOLOFT) TABLET PO SCH (19:33)
[2018-06-29] MEDS: OLANZapine 2.5 MG (ZyPREXA) TAB PO SCH (19:33)
[2018-06-30] VITALS (7 sets, daily range): BP systolic 159–164; BP diastolic 50–90
[2018-06-30] MEDS: LORazepam INJ 2 MG/ML (ATIVAN) VIAL IVP PRN ×3 (00:17→20:47)
[2018-06-30] MEDS: RT-ALBUTEROL/IPRATROPIUM 3 ML (DUONEB) VIAL INH SCH ×5 (02:00→18:07)
[2018-06-30] MEDS: inSUlin ASPART (NovoLOG) 1 UNIT/0.01 ML (CHARGE PER UNIT) SC SCH ×4 (05:41→20:48)
[2018-06-30] MEDS: UMECLIDINIUM BROMIDE (INCRUSE ELLIPTA) 7'S IH SCH (06:33)
[2018-06-30] MEDS: predniSONE 20 MG TAB PO SCH (06:40)
[2018-06-30 06:42] LABS: BASOPHILS % (AUTO) 1 % (0-10); EOSINOPHILS # (AUTO) 0.1 10^3/uL (0.0-0.3); EOSINOPHILS % (AUTO) 1 % (0-10); HEMATOCRIT 26 % (35-52); HEMOGLOBIN 7.4 G/DL (11.5-16.0); LYMPHOCYTES # (AUTO) 1.3 X 10^3 (1.0-4.0); LYMPHOCYTES % (AUTO) 19 % (12-44); MEAN CORPUSCULAR HEMOGLOBIN 24 PG (25-34); MEAN CORPUSCULAR HGB CONC 29 G/DL (32-36); MEAN CORPUSCULAR VOLUME 84 FL (80-99); MONOCYTES # (AUTO) 0.8 X 10^3 (0.0-1.0); MONOCYTES % (AUTO) 12 % (0-12); NEUTROPHILS # (AUTO) 4.4 X 10^3 (1.8-7.8); NEUTROPHILS % (AUTO) 67 % (42-75); PLATELET COUNT 318 10^3/uL (130-400); RED BLOOD COUNT 3.04 10^6/uL (4.35-5.85); RED CELL DISTRIBUTION WIDTH 17.3 % (10.0-14.5); WHITE BLOOD COUNT 6.6 10^3/uL (4.3-11.0)
[2018-06-30 06:56] LABS: BUN/CREATININE RATIO 29; CALCIUM 9.5 MG/DL (8.5-10.1); CARBON DIOXIDE 26 MMOL/L (21-32); CHLORIDE 108 MMOL/L (98-107); CREATININE SERUM 0.69 MG/DL (0.60-1.30); GFR ESTIMATED > 60; GLUCOSE 98 MG/DL (70-105); SODIUM 144 MMOL/L (135-145)
--- NOTE | 2018-06-30 07:50 | Pulmonary Progress Note ---
Subjective Time Seen by a Provider: 07:50 Subjective/Events-last exam Pt improved with noninvasive ventilation. Sepsis Event Evaluation Height, Weight, BMI Height: 5'9.00" Weight: 220lbs. 3.0oz. 99.559553hv; 32.5 BMI Method:Stated Exam Exam Vital Signs Date Time Temp Pulse Resp B/P (MAP) Pulse Ox O2 Delivery O2 Flow Rate FiO2 06/30/18 06:30 94 Nasal Cannula 3.00 06/30/18 02:00 95 Nasal Cannula 3.00 06/30/18 00:21 98.2 88 20 163/72 (102) 96 Nasal Cannula 3.00 06/29/18 21:50 99 3.00 06/29/18 20:25 Nasal Cannula 3.00 06/29/18 18:41 3.00 06/29/18 15:35 97.3 95 20 176/80 (112) 97 Nasal Cannula 3.00 06/29/18 14:59 95 3.00 06/29/18 12:06 95 3.00 06/29/18 08:00 98.5 84 22 146/88 (107) 96 Nasal Cannula 3.00 06/29/18 08:00 Nasal Cannula 3.00 I & O 06/30/18 07:00 Intake Total 2520 ml Output Total 2800 ml Balance -280 ml Height & Weight Height: 5'9.00" Weight: 220lbs. 3.0oz. 99.361047jk; 32.5 BMI Method:Stated General Appearance: No Apparent Distress, WD/WN HEENT: Normal ENT Inspection Neck: Full Range of Motion, Normal Inspection Respiratory: No Accessory Muscle Use, No Respiratory Distress, Decreased Breath Sounds, Wheezing Cardiovascular: Regular Rate, Rhythm, No Murmur Capillary Refill: Less Than 3 Seconds Gastrointestinal: non tender, soft Extremity: Other (Extremities warm with 2+ edema to the mid tibia no erythema or ulceration noted.) Results Lab Laboratory Tests 06/29/18 06:10 06/30/18 05:44 Assessment/Plan Assessment/Plan Acute on chronic respiratory failure -Pt would benefit from home vent to mask -C02 was 70 on admission -Noninvasive ventilation QHS and PRN COPDAE -Steroids -SVNS with duoneb -oxygen Atelectasis -Increase activity -IS x 10 breaths q 1hr WA Hx of severe oxygen dependent COPD MK RAMOS DO Jun 30, 2018 07:50
--- NOTE | 2018-06-30 08:16 | Progress Note (SOAP) ---
Subjective Time Seen by a Provider: 08:14 Subjective/Events-last exam Patient feeling a little better today. Patient still has some wheeze but less. Plan to discharge tomorrow. Objective Exam Vital Signs Date Time Temp Pulse Resp B/P (MAP) Pulse Ox O2 Delivery O2 Flow Rate FiO2 06/30/18 06:30 94 Nasal Cannula 3.00 06/30/18 02:00 95 Nasal Cannula 3.00 06/30/18 00:21 98.2 88 20 163/72 (102) 96 Nasal Cannula 3.00 06/29/18 21:50 99 3.00 06/29/18 20:25 Nasal Cannula 3.00 06/29/18 18:41 3.00 06/29/18 15:35 97.3 95 20 176/80 (112) 97 Nasal Cannula 3.00 06/29/18 14:59 95 3.00 06/29/18 12:06 95 3.00 I & O 06/30/18 07:00 Intake Total 2520 ml Output Total 2800 ml Balance -280 ml Capillary Refill : Less Than 3 Seconds General Appearance: No Apparent Distress, WD/WN HEENT: Normal ENT Inspection Neck: Full Range of Motion Respiratory: No Accessory Muscle Use, No Respiratory Distress, Decreased Breath Sounds, Wheezing Cardiovascular: Regular Rate, Rhythm, No Murmur Gastrointestinal: non tender, soft Results Lab Laboratory Tests 06/30/18 05:44 Laboratory Tests 06/29/18 11:31: Glucometer 218H 06/29/18 15:40: Glucometer 304H 06/29/18 20:42: Glucometer 273H 06/30/18 05:24: Glucometer 101 06/30/18 05:44: White Blood Count 6.6, Red Blood Count 3.04L, Hemoglobin 7.4L, Hematocrit 26L, Mean Corpuscular Volume 84, Mean Corpuscular Hemoglobin 24L, Mean Corpuscular Hemoglobin Concent 29L, Red Cell Distribution Width 17.3H, Platelet Count 318, Mean Platelet Volume 11.0H, Neutrophils (%) (Auto) 67, Lymphocytes (%) (Auto) 19 , Monocytes (%) (Auto) 12, Eosinophils (%) (Auto) 1, Basophils (%) (Auto) 1, Neutrophils # (Auto) 4.4, Lymphocytes # (Auto) 1.3, Monocytes # (Auto) 0.8, Eosinophils # (Auto) 0.1, Basophils # (Auto) 0.0, Sodium Level 144, Potassium Level 4.0, Chloride Level 108H, Carbon Dioxide Level 26, Anion Gap 10, Blood Urea Nitrogen 20H, Creatinine 0.69, Estimat Glomerular Filtration Rate > 60, BUN /Creatinine Ratio 29, Glucose Level 98, Calcium Level 9.5 Microbiology 06/26/18 Blood Culture - Preliminary, Resulted No growth 06/26/18 Influenza Types A,B Antigen (JANET) - Final, Complete 06/26/18 Urine Culture - Final, Complete See Comments Assessment/Plan Assessment/Plan Assess & Plan/Chief Complaint Hypercapnia respiratory failure. COPD with acute exacerbation. Diabetes.. . COPD with acute exacerbation. Hypercapnia. Diabetes. Hypertension. Clinical Quality Measures DVT/VTE Risk/Contraindication: Risk Factor Score Per Nursin RFS Level Per Nursing on Admit: 4+=Very High RADHA HAYES DO Jun 30, 2018 08:16
[2018-06-30] MEDS ORDERED: ACETAMINOPHEN 325 MG TABLET PO NR (08:30)
[2018-06-30] MEDS ORDERED: diphenhydrAMINE 25 MG TAB (BENADRYL) PO NR (08:30)
[2018-06-30] MEDS: HYDROcodone/APAP 5 MG/325 MG (LORTAB) TAB PO PRN ×3 (08:31→22:09)
[2018-06-30] MEDS: GABAPENTIN 300 MG (NEURONTIN) CAP PO SCH ×2 (08:31→20:48)
[2018-06-30] MEDS: inSUlin DETERMIR 1 UNIT/0.01 ML (LEVEMIR) CHARGE PER UNIT SQ SCH ×2 (08:32→20:48)
[2018-06-30] MEDS: CEFEPIME INJECTION 2,000 MG in NS (IVPB) 50 ML IV SCH ×2 (08:32→20:48)
[2018-06-30] MEDS: ASPIRIN 325 MG (5 GR) TABLET PO SCH (08:35)
[2018-06-30] MEDS ORDERED: NS IV 500 ML 500 ML ONE (09:44)
--- NOTE | 2018-06-30 10:14 | Diagnostic Imaging Report ---
INDICATION: Exacerbation COPD PA and lateral chest Heart size and pulmonary vascularity are normal. Lungs are clear. There are no effusions or pneumothoraces. IMPRESSION: Negative chest Dictated by: Dictated on workstation # [id number]
--- NOTE | 2018-06-30 11:03 | Physical Therapy Evaluation ---
PT Evaluation-General Medical Diagnosis Admission Date Jun 26, 2018 at 22:35 Medical Diagnosis: SOB, COPD Onset Date: Jun 26, 2018 Therapy Diagnosis Therapy Diagnosis: Weakness, Debility Height/Weight Height (Feet): 5 Height (Inches): 9.00 Weight (Pounds): 220 Weight (Ounces): 3.0 Precautions Precautions/Isolations: Fall Prevention, Standard Precautions Weight Bear Status Full Weight Bearing Full Weight Bearing Referral Physician: Sina Barros DO Reason for Referral: Evaluation/Treatment Medical History Pertinent Medical History: Arthritis, COPD, DM, Heart Failure, HTN, Neuropathy , Smoking Current History Patient admitted to hospital for SOB and signs of hypercapnic respiratory failure. Reviewed History: Yes Social History Home: Multilevel Current Living Status: Children Entry Into Home: Stairs With Railing PT Steps Into Home: 1 PT Steps Inside Home: 10 Patient lives on first floor of home and daughter lives upstairs. Prior/Core FIM Prior Level of Function Functional Ladd Measure 0=Not Assessed/NA 4=Minimal Assistance 1=Total Assistance 5=Supervision or Setup 2=Maximal Assistance 6=Modified Ladd 3=Moderate Assistance 7=Complete IndependenceIRFPAI Quality Coding Scale 6 Independent with activity with or without an assistive device 5 Patient requires set up or clean up by helper. Patient completes activity by themselves 4 Supervision or touching assist (CGA). [place] provide cues , steadying assist 3 The helper provides less than half the effort to complete the activity 2 The helper provides more than half the effort to complete the activity 1 Dependent. The helper does all the effort to complete an activity 7 Patient refused to complete or attempt activity 9 The patient did not perform the activity before the current illness or injury 88 Not attempted due to Medical conditions or safety concerns Bed Mobility: 5 Transfers (B,C,W/C) (FIM): 5 Gait: 5 Stairs: 0 Prior Equipment Used: FWW PT Evaluation-Current Subjective Pt awake in chair watching tv when PT arrived. Pt agreed to evaluation by PT. Pain Numeric Pain Scale: 7 Location: Left Location Body Site: Hip Objective Patient Orientation: Mumbles, Normal For Age Problem Solving: Fair Attachments: Oxygen, IV ROM/Strength ROM Upper Extremities R upper extremity limited to shoulder height in abduction and flexion. L UE is WNL ROM Lower Extremities WNL Strength Upper Extremities WNL Strength Lower Extremities Left hip flexors 3/5, L LE 3+/5 R LE 3+/5 Integumentary/Posture Bowel Incontinence: No Bladder Incontinence: No Sensory Vision: Functional Hearing: Functional Sensation Right Upper Extremit: Intact Sensation Left Upper Extremity: Intact Sensation Right Lower Extremit: Intact Sensation Left Lower Extremity: Intact Transfers Functional Ladd Measure 0=Not Assessed/NA 4=Minimal Assistance 1=Total Assistance 5=Supervision or Setup 2=Maximal Assistance 6=Modified Ladd 3=Moderate Assistance 7=Complete Ladd Transfers (B, C, W/C) (FIM): 4 Sit to/from Stand: 4 Gait Mode of Locomotion: Walk Anticipated Mode of Locomotion: Walk Gait (FIM): 1 Distance (FIM): 1=up to 49 ft Distance: 5' Gait Level of Assist: 4 Gait Persons Needed: 1 Gait Assistive Device: FWW Balance Sitting Static: Normal Sitting Dynamic: Normal Standing Static: Fair Standing Dynamic: Fair Assessment/Needs Patient was to ambulate for 5' with FWW but stated she need to stop due to the pain in her left hip. Patient say her pain is too much to be walking farther than the restroom. Patient performed LE exercises once she returned to her seat. Pt will benefit form skilled therapy to improve overall strength of LEs for daily activity. 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 Time Frame: Jul 07, 2018 Transfers (B,C,W/C) (FIM): 5 Gait (FIM): 2 Gait distance (FIM): 0=346-06 ft Distance: 50' Gait Level of Assist: 1 Gait Assistive Device: FWW PT Plan Problem List Problem List: Activity Tolerance, Functional Strength, Safety, Balance, Gait, Transfer, Bed Mobility, ROM Treatment/Plan Treatment Plan: Continue Plan of Care Treatment Plan: Bed Mobility, Education, Functional Strength, Gait, Safety, Therapeutic Exercise, Transfers Treatment Duration: Jul 07, 2018 Frequency: 6 times per week Estimated Hrs Per Day: .25 hour per day Patient and/or Family Agrees t: Yes Time/GCodes Time In: 947 Time Out: 1000 Total Billed Treatment Time: 13 [facility] LA[facility]A SALINAS PT Jun 30, 2018 11:03
[2018-06-30] MEDS: OLANZapine 2.5 MG (ZyPREXA) TAB PO SCH (20:47)
[2018-06-30] MEDS: SERTRALINE 50 MG (ZOLOFT) TABLET PO SCH (20:48)
[2018-07-01 00:04] VITALS: BP 155/83
[2018-07-01] MEDS: LORazepam INJ 2 MG/ML (ATIVAN) VIAL IVP PRN ×2 (00:47→05:14)
[2018-07-01] MEDS: HYDROcodone/APAP 5 MG/325 MG (LORTAB) TAB PO PRN (05:15)
[2018-07-01] MEDS: inSUlin ASPART (NovoLOG) 1 UNIT/0.01 ML (CHARGE PER UNIT) SC SCH (05:15)
[2018-07-01] MEDS: predniSONE 20 MG TAB PO SCH (06:09)
[2018-07-01 06:29] LABS: BASOPHILS # (AUTO) 0.1 10^3/uL (0.0-0.1); BASOPHILS % (AUTO) 1 % (0-10); EOSINOPHILS # (AUTO) 0.1 10^3/uL (0.0-0.3); EOSINOPHILS % (AUTO) 2 % (0-10); HEMATOCRIT 30 % (35-52); HEMOGLOBIN 8.7 G/DL (11.5-16.0); LYMPHOCYTES # (AUTO) 1.6 X 10^3 (1.0-4.0); LYMPHOCYTES % (AUTO) 22 % (12-44); MEAN CORPUSCULAR HEMOGLOBIN 25 PG (25-34); MEAN CORPUSCULAR HGB CONC 30 G/DL (32-36); MEAN CORPUSCULAR VOLUME 85 FL (80-99); MEAN PLATELET VOLUME 10.5 FL (7.4-10.4); MONOCYTES # (AUTO) 0.9 X 10^3 (0.0-1.0); MONOCYTES % (AUTO) 13 % (0-12); NEUTROPHILS # (AUTO) 4.6 X 10^3 (1.8-7.8); NEUTROPHILS % (AUTO) 63 % (42-75); PLATELET COUNT 345 10^3/uL (130-400); RED BLOOD COUNT 3.46 10^6/uL (4.35-5.85); RED CELL DISTRIBUTION WIDTH 17.7 % (10.0-14.5); WHITE BLOOD COUNT 7.4 10^3/uL (4.3-11.0)
[2018-07-01 06:47] LABS: ALANINE AMINOTRANSFERASE 18 U/L (0-55); ALBUMIN 3.6 GM/DL (3.2-4.5); ALKALINE PHOSPHATASE 70 U/L (40-136); BILIRUBIN,TOTAL 0.2 MG/DL (0.1-1.0); BUN/CREATININE RATIO 23; CALCIUM 9.9 MG/DL (8.5-10.1); CARBON DIOXIDE 31 MMOL/L (21-32); CHLORIDE 108 MMOL/L (98-107); CREATININE SERUM 0.71 MG/DL (0.60-1.30); GFR ESTIMATED > 60; GLUCOSE 100 MG/DL (70-105); POTASSIUM 4.3 MMOL/L (3.6-5.0); SODIUM 145 MMOL/L (135-145); TOTAL PROTEIN 6.1 GM/DL (6.4-8.2)
--- NOTE | 2018-07-01 07:58 | Progress Note (SOAP) ---
Subjective Time Seen by a Provider: 07:48 Subjective/Events-last exam Patient breathing better today. Patient not wheezing. Patient to be discharged today. Patient to be sent home on prednisone and Omnicef Objective Exam Vital Signs Date Time Temp Pulse Resp B/P (MAP) Pulse Ox O2 Delivery O2 Flow Rate FiO2 07/01/18 00:04 97.6 76 20 155/83 (107) 95 Nasal Cannula 3.00 06/30/18 20:00 Nasal Cannula 3.00 06/30/18 18:08 96 Nasal Cannula 3.00 06/30/18 16:30 98.0 89 20 160/84 (109) 98 Nasal Cannula 3.00 06/30/18 14:11 96 Nasal Cannula 3.00 06/30/18 13:03 97.5 74 20 164/79 95 Nasal Cannula 3.00 06/30/18 10:50 95 Nasal Cannula 3.00 06/30/18 10:50 78 95 06/30/18 10:35 98.1 78 20 160/50 95 Nasal Cannula 3.00 06/30/18 10:22 Nasal Cannula 3.00 06/30/18 10:17 98.0 89 20 159/90 94 Nasal Cannula 2.00 06/30/18 08:00 96.9 80 18 159/90 (113) 98 Nasal Cannula 3.00 I & O 07/01/18 07:00 Intake Total 2230 ml Output Total 1300 ml Balance 930 ml Capillary Refill : Less Than 3 Seconds General Appearance: No Apparent Distress, WD/WN HEENT: Normal ENT Inspection Neck: Full Range of Motion, Normal Inspection Respiratory: No Accessory Muscle Use, No Respiratory Distress, Decreased Breath Sounds Cardiovascular: Regular Rate, Rhythm, No Murmur Gastrointestinal: non tender, soft Results Lab Laboratory Tests 07/01/18 06:00 Laboratory Tests 06/30/18 11:12: Glucometer 257H 06/30/18 15:30: Stool Occult Blood Immunoassay NEGATIVE 06/30/18 15:39: Glucometer 274H 06/30/18 20:01: Glucometer 267H 07/01/18 05:07: Glucometer 99 07/01/18 06:00: White Blood Count 7.4, Red Blood Count 3.46L, Hemoglobin 8.7L, Hematocrit 30L, Mean Corpuscular Volume 85, Mean Corpuscular Hemoglobin 25, Mean Corpuscular Hemoglobin Concent 30L, Red Cell Distribution Width 17.7H, Platelet Count 345, Mean Platelet Volume 10.5H, Neutrophils (%) (Auto) 63, Lymphocytes (%) (Auto) 22 , Monocytes (%) (Auto) 13H, Eosinophils (%) (Auto) 2, Basophils (%) (Auto) 1, Neutrophils # (Auto) 4.6, Lymphocytes # (Auto) 1.6, Monocytes # (Auto) 0.9, Eosinophils # (Auto) 0.1, Basophils # (Auto) 0.1, Sodium Level 145, Potassium Level 4.3, Chloride Level 108H, Carbon Dioxide Level 31, Anion Gap 6, Blood Urea Nitrogen 16, Creatinine 0.71, Estimat Glomerular Filtration Rate > 60, BUN/ Creatinine Ratio 23, Glucose Level 100, Calcium Level 9.9, Corrected Calcium 10.2H, Total Bilirubin 0.2, Aspartate Amino Transf (AST/SGOT) 13, Alanine Aminotransferase (ALT/SGPT) 18, Alkaline Phosphatase 70, Total Protein 6.1L, Albumin 3.6 Microbiology 06/26/18 Blood Culture - Preliminary, Resulted No growth 06/26/18 Influenza Types A,B Antigen (JANET) - Final, Complete 06/26/18 Urine Culture - Final, Complete See Comments Assessment/Plan Assessment/Plan Assess & Plan/Chief Complaint Hypercapnia respiratory failure. COPD with acute exacerbation. Diabetes.. . COPD with acute exacerbation. Hypercapnia. Diabetes. Hypertension.. . 07/01/18. COPD with acute exacerbation. Hypercapnia. Diabetes. Hypertension. Patient doing much better. Patient to be discharged today Clinical Quality Measures DVT/VTE Risk/Contraindication: Risk Factor Score Per Nursin RFS Level Per Nursing on Admit: 4+=Very High RADHA HAYES DO Jul 01, 2018 07:58
[2018-07-01] MEDS ORDERED: PRD10T PO (08:05)
[2018-07-01] MEDS: RT-ALBUTEROL/IPRATROPIUM 3 ML (DUONEB) VIAL INH SCH (08:14)
[2018-07-01] MEDS ORDERED: CEFD300C3 PO ×2 (08:19→08:20)
[2018-07-01] MEDS: CEFEPIME INJECTION 2,000 MG in NS (IVPB) 50 ML IV SCH (08:45)
[2018-07-01] MEDS: inSUlin DETERMIR 1 UNIT/0.01 ML (LEVEMIR) CHARGE PER UNIT SQ SCH (08:46)
[2018-07-01] MEDS: ASPIRIN 325 MG (5 GR) TABLET PO SCH (08:46)
[2018-07-01] MEDS: GABAPENTIN 300 MG (NEURONTIN) CAP PO SCH (08:46)
--- NOTE | 2018-07-01 08:55 | Physical Therapy Daily Note ---
PT Daily Note-Current Subjective Pt reports she is being discharged home today. States she is still in so much pain. Pain Numeric Pain Scale: 8 Comment: 8/10 all over, especially R shldr, L leg and hip and across LB Appearance pt sitting up in chair awake with chair alarm upon arrival. Sitting in chair with chair alarm and nurse present at end of session Mental Status Patient Orientation: Person, Place, Time, Eyes Open, Situation, Normal For Age Attachments: Oxygen Transfers Functional [place] Measure 0=Not Assessed/NA 4=Minimal Assistance 1=Total Assistance 5=Supervision or Setup 2=Maximal Assistance 6=Modified [place] 3=Moderate Assistance 7=Complete IndependenceIRFPAI Quality Coding Scale 6 Independent with activity with or without an assistive device 5 Patient requires set up or clean up by helper. Patient completes activity by themselves 4 Supervision or touching assist (CGA). [place] provide cues , steadying assist 3 The helper provides less than half the effort to complete the activity 2 The helper provides more than half the effort to complete the activity 1 Dependent. The helper does all the effort to complete an activity 7 Patient refused to complete or attempt activity 9 The patient did not perform the activity before the current illness or injury 88 Not attempted due to Medical conditions or safety concerns Transfers (B, C, W/C) (FIM): 5 Scootin Sit to/from Stand: 5 Pt with pain in Right arm pushing up from arm of chair to stand. Weight Bearing Full Weight Bearing Full Weight Bearing Gait Training Gait (FIM): 1 Distance (FIM): 1=up to 49 ft Distance: 40' Gait Persons Needed: 1 Gait Assistive Device: FWW 40' SBA, Slow gait, leans on walker with forearms to "catch breath" and to help alleviate LBP Treatments Gait and transfers Assessment Current Status: Fair Progress PT Jail Goals Provider Relations Specialist Goals PT Provider Relations Specialist Goals Time Frame: Jul 07, 2018 Transfers (B,C,W/C) (FIM): 5 Gait (FIM): 2 Gait distance (FIM): 2=015-87 ft Distance: 50' Gait Level of Assist: 1 Gait Assistive Device: FWW PT Plan Problem List Problem List: Activity Tolerance, Gait, Transfer Treatment/Plan Treatment Plan: Continue Plan of Care Treatment Plan: Bed Mobility, Education, Functional Strength, Gait, Safety, Therapeutic Exercise, Transfers Pt discharging home from hospital today Treatment Duration: Jul 07, 2018 Frequency: 6 times per week Estimated Hrs Per Day: .25 hour per day Patient and/or Family Agrees t: Yes Safety Risks/Education Patient Education: Gait Training, Transfer Techniques Teaching Recipient: Patient Teaching Methods: Discussion Response to Teaching: Verbalize Understanding Discharge Recommendations Therapy D/C Recommendations: Home w/ Family Support Time/GCodes Time In: 837 Time Out: 847 Total Billed Treatment Time: 10 Total Billed Treatment 1 Visit FA 10 min AGUSTIN TODD ASP NET C DEVELOPER Jul 01, 2018 08:55
--- NOTE | 2018-07-02 07:37 | Discharge Summary ---
Diagnosis/Chief Complaint Date of Admission Jun 26, 2018 at 22:35 Date of Discharge Jul 01, 2018 at 09:22 Discharge Time: 07:35 Discharge Diagnosis Acute on chronic respiratory failure. COPD with acute exacerbation. Respiratory failure with hypoxia and hypercapnia. Diabetes. Arthritis. Hypertension. Atelectasis. Acute bronchitis. Dehydration. Nicotine dependence history Discharge Summary Discharge Physical Examination Allergies: Coded Allergies: enalapril (Verified Allergy, Severe, ANAPHYLAXIS, 08/22/13) Vitals & I&Os Vital Signs Date Time Temp Pulse Resp B/P (MAP) Pulse Ox O2 Delivery O2 Flow Rate FiO2 07/01/18 08:00 Nasal Cannula 3.00 07/01/18 00:04 97.6 76 20 155/83 (107) 95 06/28/18 19:45 50 Hospital Course Labs (last 24 hrs) Laboratory Tests 06/26/18 20:32: White Blood Count 11.7H, Red Blood Count 4.00L, Hemoglobin 9.6L, Hematocrit 34L , Mean Corpuscular Volume 85, Mean Corpuscular Hemoglobin 24L, Mean Corpuscular Hemoglobin Concent 28L, Red Cell Distribution Width 17.0H, Platelet Count 262, Mean Platelet Volume 11.4H, Neutrophils (%) (Auto) 82H, Lymphocytes (%) (Auto) 10L, Monocytes (%) (Auto) 7, Eosinophils (%) (Auto) 1, Basophils (%) (Auto) 0, Neutrophils # (Auto) 9.6H, Lymphocytes # (Auto) 1.2, Monocytes # (Auto) 0.8, Eosinophils # (Auto) 0.1, Basophils # (Auto) 0.0, Prothrombin Time 12.6, INR Comment 0.9, Activated Partial Thromboplast Time 25, Sodium Level 143, Potassium Level 4.3, Chloride Level 101, Carbon Dioxide Level 33H, Anion Gap 9, Blood Urea Nitrogen 17, Creatinine 0.76, Estimat Glomerular Filtration Rate > 60 , BUN/Creatinine Ratio 22, Glucose Level 126H, Lactic Acid Level 0.93, Calcium Level 10.3H, Corrected Calcium 10.4H, Total Bilirubin 0.2, Aspartate Amino Transf (AST/SGOT) 10, Alanine Aminotransferase (ALT/SGPT) 9, Alkaline Phosphatase 80, C-Reactive Protein High Sensitivity 12.67H, Total Protein 7.0, Albumin 3.9 06/26/18 20:33: Blood Gas Puncture Site R RADIAL, Blood Gas Patient Temperature 100.8, Arterial Blood pH 7.33*L, Arterial Blood Partial Pressure CO2 70H, Arterial Blood Partial Pressure O2 45L, Arterial Blood HCO3 35H, Arterial Blood Total CO2 37.1H , Arterial Blood Oxygen Saturation 69L, Arterial Blood Base Excess 9.3H, [place] Test POSITIVE, Blood Gas Ventilator Setting YES, Blood Gas Inspired Oxygen 15L 06/26/18 21:15: Urine Color YELLOW, Urine Clarity CLEAR, Urine pH 6.5, Urine Specific Gilliam 1.015L, Urine Protein 3+H, Urine Glucose (UA) NEGATIVE, Urine Ketones NEGATIVE, Urine Nitrite NEGATIVE, Urine Bilirubin NEGATIVE, Urine Urobilinogen NORMAL, Urine Leukocyte Esterase 3+H, Urine RBC (Auto) 3+H, Urine RBC 2-5H, Urine WBC 10 -25H, Urine Squamous Epithelial Cells 2-5, Urine Crystals NONE, Urine Bacteria FEWH, Urine Casts NONE, Urine Mucus NEGATIVE, Urine Culture Indicated NO 06/26/18 22:35: Lab Scanned Report Referred Lab Report 06/27/18 05:10: Glucometer 283H 06/27/18 06:10: White Blood Count 11.1H, Red Blood Count 3.37L, Hemoglobin 8.3L, Hematocrit 28L , Mean Corpuscular Volume 83, Mean Corpuscular Hemoglobin 25, Mean Corpuscular Hemoglobin Concent 30L, Red Cell Distribution Width 17.2H, Platelet Count 257, Mean Platelet Volume 11.7H, Neutrophils (%) (Auto) 96H, Lymphocytes (%) (Auto) 3L, Monocytes (%) (Auto) 1, Eosinophils (%) (Auto) 0, Basophils (%) (Auto) 0, Neutrophils # (Auto) 10.7H, Lymphocytes # (Auto) 0.4L, Monocytes # (Auto) 0.1, Eosinophils # (Auto) 0.0, Basophils # (Auto) 0.0, Neutrophils % (Manual) 90, Lymphocytes % (Manual) 2, Monocytes % (Manual) 1, Band Neutrophils 7, Hypochromasia MODERATE 06/27/18 11:08: Glucometer 332H 06/27/18 15:23: Glucometer 235H 06/27/18 20:41: Glucometer 140H 06/28/18 05:35: Glucometer 294H 06/28/18 11:31: Glucometer 157H 06/28/18 15:57: Glucometer 209H 06/28/18 20:05: Glucometer 112H 06/29/18 05:38: Glucometer 120H 06/29/18 06:10: White Blood Count 8.1, Red Blood Count 3.12L, Hemoglobin 7.7L, Hematocrit 27L, Mean Corpuscular Volume 85, Mean Corpuscular Hemoglobin 25, Mean Corpuscular Hemoglobin Concent 29L, Red Cell Distribution Width 17.5H, Platelet Count 332, Mean Platelet Volume 10.8H, Neutrophils (%) (Auto) 75, Lymphocytes (%) (Auto) 14 , Monocytes (%) (Auto) 9, Eosinophils (%) (Auto) 1, Basophils (%) (Auto) 1, Neutrophils # (Auto) 6.0, Lymphocytes # (Auto) 1.2, Monocytes # (Auto) 0.8, Eosinophils # (Auto) 0.1, Basophils # (Auto) 0.0, Sodium Level 143, Potassium Level 4.5, Chloride Level 111H, Carbon Dioxide Level 24, Anion Gap 8, Blood Urea Nitrogen 25H, Creatinine 0.75, Estimat Glomerular Filtration Rate > 60, BUN /Creatinine Ratio 33, Glucose Level 106H, Calcium Level 9.9, Parathyroid Hormone (Intact) 50.9, Calcium (PTH Intact) 9.4 06/29/18 11:31: Glucometer 218H 06/29/18 15:40: Glucometer 304H 06/29/18 20:42: Glucometer 273H 06/30/18 05:24: Glucometer 101 06/30/18 05:44: White Blood Count 6.6, Red Blood Count 3.04L, Hemoglobin 7.4L, Hematocrit 26L, Mean Corpuscular Volume 84, Mean Corpuscular Hemoglobin 24L, Mean Corpuscular Hemoglobin Concent 29L, Red Cell Distribution Width 17.3H, Platelet Count 318, Mean Platelet Volume 11.0H, Neutrophils (%) (Auto) 67, Lymphocytes (%) (Auto) 19 , Monocytes (%) (Auto) 12, Eosinophils (%) (Auto) 1, Basophils (%) (Auto) 1, Neutrophils # (Auto) 4.4, Lymphocytes # (Auto) 1.3, Monocytes # (Auto) 0.8, Eosinophils # (Auto) 0.1, Basophils # (Auto) 0.0, Sodium Level 144, Potassium Level 4.0, Chloride Level 108H, Carbon Dioxide Level 26, Anion Gap 10, Blood Urea Nitrogen 20H, Creatinine 0.69, Estimat Glomerular Filtration Rate > 60, BUN /Creatinine Ratio 29, Glucose Level 98, Calcium Level 9.5 06/30/18 11:12: Glucometer 257H 06/30/18 15:30: Stool Occult Blood Immunoassay NEGATIVE 06/30/18 15:39: Glucometer 274H 06/30/18 20:01: Glucometer 267H 07/01/18 05:07: Glucometer 99 07/01/18 06:00: White Blood Count 7.4, Red Blood Count 3.46L, Hemoglobin 8.7L, Hematocrit 30L, Mean Corpuscular Volume 85, Mean Corpuscular Hemoglobin 25, Mean Corpuscular Hemoglobin Concent 30L, Red Cell Distribution Width 17.7H, Platelet Count 345, Mean Platelet Volume 10.5H, Neutrophils (%) (Auto) 63, Lymphocytes (%) (Auto) 22 , Monocytes (%) (Auto) 13H, Eosinophils (%) (Auto) 2, Basophils (%) (Auto) 1, Neutrophils # (Auto) 4.6, Lymphocytes # (Auto) 1.6, Monocytes # (Auto) 0.9, Eosinophils # (Auto) 0.1, Basophils # (Auto) 0.1, Sodium Level 145, Potassium Level 4.3, Chloride Level 108H, Carbon Dioxide Level 31, Anion Gap 6, Blood Urea Nitrogen 16, Creatinine 0.71, Estimat Glomerular Filtration Rate > 60, BUN/ Creatinine Ratio 23, Glucose Level 100, Calcium Level 9.9, Corrected Calcium 10.2H, Total Bilirubin 0.2, Aspartate Amino Transf (AST/SGOT) 13, Alanine Aminotransferase (ALT/SGPT) 18, Alkaline Phosphatase 70, Total Protein 6.1L, Albumin 3.6 Microbiology 06/26/18 Blood Culture - Preliminary, Resulted No growth 06/26/18 Influenza Types A,B Antigen (JANET) - Final, Complete 06/26/18 Urine Culture - Final, Complete See Comments Pending Labs Microbiology Date/Time Source Procedure Growth Status 06/26/18 20:45 Peripheral Lt Hand Blood Culture - Preliminary No growth Resulted 06/26/18 20:32 Peripheral Lt Ac Blood Culture - Preliminary Staph, Coag Neg ([employer]IZATIONAL PSYCHOLOGIST) See Comments Resulted 06/26/18 20:35 Nasopharynx Influenza Types A,B Antigen (JANET) - Final Complete 06/26/18 21:15 Urine Clean Catch Urine Culture - Final See Comments Complete Laboratory Tests 06/26/18 20:32: White Blood Count 11.7, Red Blood Count 4.00, Hemoglobin 9.6, Hematocrit 34, Mean Corpuscular Volume 85, Mean Corpuscular Hemoglobin 24, Mean Corpuscular Hemoglobin Concent 28, Red Cell Distribution Width 17.0, Platelet Count 262, Mean Platelet Volume 11.4, Neutrophils (%) (Auto) 82, Lymphocytes (%) (Auto) 10 , Monocytes (%) (Auto) 7, Eosinophils (%) (Auto) 1, Basophils (%) (Auto) 0, Neutrophils # (Auto) 9.6, Lymphocytes # (Auto) 1.2, Monocytes # (Auto) 0.8, Eosinophils # (Auto) 0.1, Basophils # (Auto) 0.0, Prothrombin Time 12.6, INR Comment 0.9, Activated Partial Thromboplast Time 25, Sodium Level 143, Potassium Level 4.3, Chloride Level 101, Carbon Dioxide Level 33, Anion Gap 9, Blood Urea Nitrogen 17, Creatinine 0.76, Estimat Glomerular Filtration Rate > 60 , BUN/Creatinine Ratio 22, Glucose Level 126, Lactic Acid Level 0.93, Calcium Level 10.3, Corrected Calcium 10.4, Total Bilirubin 0.2, Aspartate Amino Transf (AST/SGOT) 10, Alanine Aminotransferase (ALT/SGPT) 9, Alkaline Phosphatase 80, C -Reactive Protein High Sensitivity 12.67, Total Protein 7.0, Albumin 3.9 06/26/18 20:33: Blood Gas Puncture Site R RADIAL, Blood Gas Patient Temperature 100.8, Arterial Blood pH 7.33, Arterial Blood Partial Pressure CO2 70, Arterial Blood Partial Pressure O2 45, Arterial Blood HCO3 35, Arterial Blood Total CO2 37.1, Arterial Blood Oxygen Saturation 69, Arterial Blood Base Excess 9.3, [place] Test POSITIVE , Blood Gas Ventilator Setting YES, Blood Gas Inspired Oxygen 15L 06/26/18 21:15: Urine Color YELLOW, Urine Clarity CLEAR, Urine pH 6.5, Urine Specific Gilliam 1.015, Urine Protein 3+, Urine Glucose (UA) NEGATIVE, Urine Ketones NEGATIVE, Urine Nitrite NEGATIVE, Urine Bilirubin NEGATIVE, Urine Urobilinogen NORMAL, Urine Leukocyte Esterase 3+, Urine RBC (Auto) 3+, Urine RBC 2-5, Urine WBC 10-25 , Urine Squamous Epithelial Cells 2-5, Urine Crystals NONE, Urine Bacteria FEW, Urine Casts NONE, Urine Mucus NEGATIVE, Urine Culture Indicated NO 06/26/18 22:35: Lab Scanned Report Referred Lab Report 06/27/18 05:10: Glucometer 283 06/27/18 06:10: White Blood Count 11.1, Red Blood Count 3.37, Hemoglobin 8.3, Hematocrit 28, Mean Corpuscular Volume 83, Mean Corpuscular Hemoglobin 25, Mean Corpuscular Hemoglobin Concent 30, Red Cell Distribution Width 17.2, Platelet Count 257, Mean Platelet Volume 11.7, Neutrophils (%) (Auto) 96, Lymphocytes (%) (Auto) 3, Monocytes (%) (Auto) 1, Eosinophils (%) (Auto) 0, Basophils (%) (Auto) 0, Neutrophils # (Auto) 10.7, Lymphocytes # (Auto) 0.4, Monocytes # (Auto) 0.1, Eosinophils # (Auto) 0.0, Basophils # (Auto) 0.0, Neutrophils % (Manual) 90, Lymphocytes % (Manual) 2, Monocytes % (Manual) 1, Band Neutrophils 7, Hypochromasia MODERATE 06/27/18 11:08: Glucometer 332 06/27/18 15:23: Glucometer 235 06/27/18 20:41: Glucometer 140 06/28/18 05:35: Glucometer 294 06/28/18 11:31: Glucometer 157 06/28/18 15:57: Glucometer 209 06/28/18 20:05: Glucometer 112 06/29/18 05:38: Glucometer 120 06/29/18 06:10: White Blood Count 8.1, Red Blood Count 3.12, Hemoglobin 7.7, Hematocrit 27, Mean Corpuscular Volume 85, Mean Corpuscular Hemoglobin 25, Mean Corpuscular Hemoglobin Concent 29, Red Cell Distribution Width 17.5, Platelet Count 332, Mean Platelet Volume 10.8, Neutrophils (%) (Auto) 75, Lymphocytes (%) (Auto) 14 , Monocytes (%) (Auto) 9, Eosinophils (%) (Auto) 1, Basophils (%) (Auto) 1, Neutrophils # (Auto) 6.0, Lymphocytes # (Auto) 1.2, Monocytes # (Auto) 0.8, Eosinophils # (Auto) 0.1, Basophils # (Auto) 0.0, Sodium Level 143, Potassium Level 4.5, Chloride Level 111, Carbon Dioxide Level 24, Anion Gap 8, Blood Urea Nitrogen 25, Creatinine 0.75, Estimat Glomerular Filtration Rate > 60, BUN/ Creatinine Ratio 33, Glucose Level 106, Calcium Level 9.9, Parathyroid Hormone ( Intact) 50.9, Calcium (PTH Intact) 9.4 06/29/18 11:31: Glucometer 218 06/29/18 15:40: Glucometer 304 06/29/18 20:42: Glucometer 273 06/30/18 05:24: Glucometer 101 06/30/18 05:44: White Blood Count 6.6, Red Blood Count 3.04, Hemoglobin 7.4, Hematocrit 26, Mean Corpuscular Volume 84, Mean Corpuscular Hemoglobin 24, Mean Corpuscular Hemoglobin Concent 29, Red Cell Distribution Width 17.3, Platelet Count 318, Mean Platelet Volume 11.0, Neutrophils (%) (Auto) 67, Lymphocytes (%) (Auto) 19 , Monocytes (%) (Auto) 12, Eosinophils (%) (Auto) 1, Basophils (%) (Auto) 1, Neutrophils # (Auto) 4.4, Lymphocytes # (Auto) 1.3, Monocytes # (Auto) 0.8, Eosinophils # (Auto) 0.1, Basophils # (Auto) 0.0, Sodium Level 144, Potassium Level 4.0, Chloride Level 108, Carbon Dioxide Level 26, Anion Gap 10, Blood Urea Nitrogen 20, Creatinine 0.69, Estimat Glomerular Filtration Rate > 60, BUN/ Creatinine Ratio 29, Glucose Level 98, Calcium Level 9.5 06/30/18 11:12: Glucometer 257 06/30/18 15:30: Stool Occult Blood Immunoassay NEGATIVE 06/30/18 15:39: Glucometer 274 06/30/18 20:01: Glucometer 267 07/01/18 05:07: Glucometer 99 07/01/18 06:00: White Blood Count 7.4, Red Blood Count 3.46, Hemoglobin 8.7, Hematocrit 30, Mean Corpuscular Volume 85, Mean Corpuscular Hemoglobin 25, Mean Corpuscular Hemoglobin Concent 30, Red Cell Distribution Width 17.7, Platelet Count 345, Mean Platelet Volume 10.5, Neutrophils (%) (Auto) 63, Lymphocytes (%) (Auto) 22 , Monocytes (%) (Auto) 13, Eosinophils (%) (Auto) 2, Basophils (%) (Auto) 1, Neutrophils # (Auto) 4.6, Lymphocytes # (Auto) 1.6, Monocytes # (Auto) 0.9, Eosinophils # (Auto) 0.1, Basophils # (Auto) 0.1, Sodium Level 145, Potassium Level 4.3, Chloride Level 108, Carbon Dioxide Level 31, Anion Gap 6, Blood Urea Nitrogen 16, Creatinine 0.71, Estimat Glomerular Filtration Rate > 60, BUN/ Creatinine Ratio 23, Glucose Level 100, Calcium Level 9.9, Corrected Calcium 10.2, Total Bilirubin 0.2, Aspartate Amino Transf (AST/SGOT) 13, Alanine Aminotransferase (ALT/SGPT) 18, Alkaline Phosphatase 70, Total Protein 6.1, Albumin 3.6 Discharge Home Medications: Active Scripts Active Cefdinir 300 Mg Capsule 300 Mg PO BID 4 Days Prednisone 10 Mg Tab 10 Mg PO UD TAKE 30 MG (3 TABS) DAY 1, 20 MG (2 TABS) DAY 2, AND 10 MG DAY 3 Reported Novolog (Insulin Aspart) 100 Unit/1 Ml Susp SQ AC PRN Toujeo Solostar (Insulin Glargine,Hum.rec.anlog) 300 Unit/1 Ml Insuln.pen 6 Unit SQ DAILY Symbicort 160-4.5 Mcg Inhaler (Budesonide/Formoterol Fumarate) 10.2 Gm Hfa.aer.ad 2 Puff IH BID Potassium Chloride 10 Meq Capsule.er 10 Meq PO HS Pramipexole Dihydrochloride (Pramipexole Di-HCl) 1 Mg Tablet 1 Mg PO HS Spiriva (Tiotropium [place]) 1 Inh Aerp 1 Cap IH DAILY Aspirin EC (Aspirin) 325 Mg Tablet.dr 325 Mg PO DAILY PRN Tylenol (Acetaminophen) 325 Mg Tablet 650 Mg PO Q4H PRN Nasal Decongestant (Oxymetazoline HCl) 30 Ml Arabi 2 Arabi NS Q4H PRN Albuterol Sulfate 2.5 Mg/3 Ml Vial.neb 2.5 Mg NEB Q4H PRN Metformin HCl 500 Mg Tablet 1,000 Mg PO BID TAKES 2 (500MG) TABLETS Sertraline HCl 50 Mg Tablet 50 Mg PO HS Amlodipine Besylate 10 Mg Tablet 10 Mg PO DAILY Naproxen 500 Mg Tablet 500 Mg PO BID PRN Furosemide 40 Mg Tablet 40 Mg PO DAILY Hydrocodon-Acetaminophn 10-325 (Hydrocodone/Acetaminophen) 1 Each Tablet 1 Tab PO TID PRN Glimepiride 4 Mg Tablet 4 Mg PO BID Gabapentin 300 Mg Capsule 300 Mg PO BID Atorvastatin Calcium 10 Mg Tablet 10 Mg PO HS Instructions to patient/family Please see electronic discharge instructions given to patient. Clinical Quality Measures DVT/VTE Risk/Contraindication: Risk Factor Score Per Nursin RFS Level Per Nursing on Admit: 4+=Very High RADHA HAYES DO Jul 02, 2018 07:37
== END 2018-07-01 09:22 | disposition home or self-care (01) | DRG 189 ==
LOC: ER 20:25 → 4TH 22:35
PROVIDERS: ADMIT Internal Medicine; ATTEND Internal Medicine
DX: J96.22 Acute and chronic respiratory failure with hypercapnia (principal); J96.21 Acute and chronic respiratory failure with hypoxia; J18.9 Pneumonia, unspecified organism; J20.9 Acute bronchitis, unspecified; E87.2 Acidosis; J98.11 Atelectasis; J43.9 Emphysema, unspecified; E86.0 Dehydration; E83.52 Hypercalcemia; I10 Essential (primary) hypertension; R60.9 Edema, unspecified; E11.40 Type 2 diabetes mellitus with diabetic neuropathy, unspecified; K21.9 Gastro-esophageal reflux disease without esophagitis; K44.9 Diaphragmatic hernia without obstruction or gangrene; M19.91 Primary osteoarthritis, unspecified site; M54.9 Dorsalgia, unspecified; G47.9 Sleep disorder, unspecified; F41.9 Anxiety disorder, unspecified; F32.9 Major depressive disorder, single episode, unspecified; F17.290 Nicotine dependence, other tobacco product, uncomplicated; Z79.4 Long term (current) use of insulin; Z96.641 Presence of right artificial hip joint; Z99.81 Dependence on supplemental oxygen
CPT/HCPCS: 36415; 36600; 71045; 71046; 80048; 80053; 81000; 82274; 82805; 82962; 83605; 83970; 85007; 85025; 85027; 85610; 85730; 86141; 86850; 86900; 86901; 86920; 87040; 87088; 87804; 94640; 94644; 94660; 94760; 96361; 96365; 96375

== ENCOUNTER → 2018-09-14 | Outpatient (CLI) | payer MEDICARE ==
[~2018-09-14] MED LIST changes: -AMLO10TA6 PO; +AMLO10TA7 PO; +INSU100V16 SQ; +INSU300I SQ; +OXYM-51 NS; -OXYM30SP11 NS; +TIOT18CA2 IH
[2018-09-14 10:06] LABS: ABG BASE EXCESS 9.2 MMOL/L (-2.5-2.5); ABG OXYGEN SATURATION 82 % (94-100); ABG PCO2 50 MMHG (35-45); ABG PH 7.44 (7.37-7.43); ABG PO2 44 MMHG (79-93); ABG TCO2 35.6 MMOL/L (21.0-31.0)
[2018-09-14 10:07] LABS: ALLENS TEST POSITIVE; INSPIRED O2 4 L; PATIENT TEMP 95.9; VENTILATOR NO
--- NOTE | 2018-09-14 13:49 | Diagnostic Imaging Report ---
INDICATION: COPD and respiratory failure with chronic cough. TIME OF EXAMINATION: 11:09 a.m. COMPARISON: Correlation is made with prior study from 06/30/2018. FINDINGS: The heart is enlarged but stable. Lungs appear to be clear. No infiltrates are seen. The pulmonary vascularity is normal. No effusion or pneumothorax is identified. IMPRESSION: No acute cardiopulmonary process is detected. Dictated by: Dictated on workstation # [id number]
== END ==
LOC: RT 09:33
PROVIDERS: ATTEND Nurse Practitioner Family
DX: J96.20 Acute and chronic respiratory failure, unspecified whether with hypoxia or hypercapnia (principal); J44.9 Chronic obstructive pulmonary disease, unspecified; R05 Cough
CPT/HCPCS: 36600; 71046; 82805